=== PATIENT | male | born 1940 | race Caucasian/White ===

== ENCOUNTER 2020-11-10 12:34 | Observation (INO) | payer MEDICARE, SELFPAY ==
[2020-11-10] VITALS (9 sets, daily range): BP systolic 77–141; BP diastolic 43–61; PULSE 68–83; RESP 12–18; TEMP 36.2–36.8; O2SAT 94–100; BMI 22.6; BMI 22.7
--- NOTE | 2020-11-10 12:54 | CT_ITS ---
STUDY: CT BRAIN WITHOUT CONTRAST REASON FOR EXAM: Male, 80 years old. Fall RADIATION DOSAGE (If Supplied By Facility): CTDIvol = ( 38.43 ) mGy, DLP = ( 784.74 ) mGycm TECHNIQUE: Transaxial CT imaging of the brain was performed without administration of intravenous contrast material. Individualized dose optimization techniques were used for this CT. COMPARISON: No relevant priors. FINDINGS: Normal soft tissue structures. Normal calvarium. There is mild cerebral atrophy with widening of the extra-axial spaces and ventricular dilatation. Normal white matter tracts of the cerebral hemispheres. Normal basal ganglia and thalami. Normal brainstem. There is mild cerebellar atrophy. There is no intracranial hemorrhage. There are no findings of an acute ischemic infarction. Normal visualized paranasal sinuses. CT/Brain/Head without Contrast IMPRESSION: Chronic involutional changes of the brain. Electronically Signed: Albert Jackson MD at 14:35 EDT , Service support ,
--- NOTE | 2020-11-10 12:55 | EKG12_ITS ---
Test Reason : SYNCOPE Blood Pressure : / mmHG Vent. Rate : 073 BPM Atrial Rate : 073 BPM P-R Int : 148 ms QRS Dur : 096 ms QT Int : 446 ms P-R-T Axes : 033 056 052 degrees QTc Int : 491 ms Normal sinus rhythm Prolonged QT Abnormal ECG Confirmed by JEFF HORNER, BARBARA ([id number]), editor school photograph ALEXY VELÁSQUEZ ([id number]) on 11/13/2020 9:49:23 AM Referred By: BRE Confirmed By:TORI AGUILAR MD
--- NOTE | 2020-11-10 12:56 | CT_ITS ---
STUDY: CT CERVICAL SPINE WITHOUT CONTRAST REASON FOR EXAM: Male, 80 years old. Fall RADIATION DOSAGE (If Supplied By Facility): CTDIvol = ( 19.51 ) mGy, DLP = ( 438.63 ) mGycm TECHNIQUE: High resolution transaxial imaging was performed without contrast material. Sagittal and coronal images were reconstructed. Individualized dose optimization techniques were used for this CT. COMPARISON: None FINDINGS: Normal craniovertebral junction. There are degenerative changes of the anterior atlantoaxial articulation. Normal odontoid process. There is straightening of the normal cervical lordosis. Normal vertebral bodies and posterior osseous elements. C2-3: Normal endplates. Normal disc height and morphology. Normal central canal and intervertebral neuroforamina. C3-4: Mild degree of disc space narrowing. Spondylosis. Facet joint osteoarthritis and hypertrophy on the right side with moderate degree of right neural foraminal stenosis. Uncovertebral arthrosis worse on the right side. C4-5: Marked degree of disc space narrowing. Spondylolisthesis. Uncovertebral arthrosis worse on the right side with moderate right neural foraminal stenosis. C5-6: Marked degree of disc space narrowing. Spondylosis. Uncovertebral arthrosis. Marked degree of central canal stenosis and bilateral neural foraminal stenosis worse on the right side. C6-7: Marked degree of disc space narrowing. Spondylosis. Uncovertebral arthrosis with mild degree of bilateral neural foraminal stenosis. C7-T1: Normal endplates. Normal disc height and morphology. Normal central canal and intervertebral neuroforamina. Normal visualized soft tissue structures. CT/Spine Cervical without Contras IMPRESSION: Multilevel degenerative changes, as described above. Electronically Signed: Albert Jackson MD at 14:38 EDT , Service support ,
[2020-11-10 14:01] LABS: Absolute Lymphocyte Count 1.08 X10^3/uL (0.83-4.51); Absolute Neutrophil Count 1.3 X10^3/uL (2.0-7.7); Basophil# 0.03 X10^3/uL; Eosinophil# 0.21 X10^3/uL; Eosinophils% 7.2 % (0-5); Hematocrit 26.5 % (40-54); Hemoglobin 8.5 g/dL (13.0-16.5); Lymphocyte # 1.08 X10^3/ul (0.83-4.51); Lymphocyte % 37.2 % (19-41); Mean Corp Hgb Conc 32.1 g/dL (32-36); Mean Corpuscular Volume 99.6 fL (80-94); Mean Platelet Vol. 11.8 fl (6.2-12.0); Monocyte# 0.26 X10^3/uL; NRBC Flagged by Analyzer 0 % (0-5); Neutrophil # 1.31 X10^3/uL (2.7-7.7); Neutrophil % 45.3 % (47-70); POSITIVE COUNT YES; Platelet Count 71 K/mm3 (150-450); RBC Distribution Width CV 17.4 % (11.6-14.6); Red Blood Count 2.66 M/mm3 (4.6-6.2); White Blood Count 2.9 K/mm3 (4.4-11.0)
[2020-11-10 14:03] LABS: Differential Indicated SCAN CRITERIA MET
[2020-11-10 14:25] LABS: ALB/GLOB Ratio 0.6 RATIO (0.9-2.4); AST(SGOT) 18 U/L (15-37); Alanine Aminotransfer ALT/SGPT 21 U/L (16-61); Albumin, Serum 2.6 g/dL (3.2-5.0); Alkaline Phosphatase 57 U/L (45-117); Anion Gap 4 (5-15); BUN 18 mg/dL (7-18); BUN/Creat Ratio 11.8 RATIO (10-20); Calcium,Total 7.5 mg/dL (8.5-10.1); Chloride 106 mmol/L (98-107); Creatinine, Serum 1.52 mg/dL (0.70-1.30); EST Glomerular Filtration Rate 47 mL/min (>60); Est Glom Filt Rate - Afr Amer 57 mL/min (>60); Estimated Creatinine Clearance 38.94 ml/min; Globulin 4.2 g/dL (2.2-4.2); Glucose 104 mg/dL (74-106); Potassium 3.9 mmol/L (3.5-5.1); Protein, Total 6.8 g/dL (6.4-8.2); Sodium Level 139 mmol/L (136-145)
[2020-11-10 14:26] LABS: Anisocytosis 2+; Hypochromasia 2+
[2020-11-10 14:27] LABS: Platelet Estimate MOD DEC (ADEQ)
--- NOTE | 2020-11-10 15:37 | ED.DCSUM_ITS ---
- ER Visit Summary Date of Service: 11/10/20 Chief Complaint: Syncope History of Present Illness: The patient is a [address] Guallpa. He reports that he was sitting eating breakfast at 9:00 this morning when he became lightheaded. States this lasted for approximately 1 minute. He was nauseated and diaphoretic during this. He then had a syncopal episode. reports that he was out for 1 to 2 minutes and had movement of his arms and his legs. He states that he was making funny noises. Patient did not bite his tongue. Did not wet his pants. Was not postictal. Patient denies any preceding chest pain, palpitations, shortness of breath, abdominal pain. Physical Examination: Vitals: Stable. Afebrile. General: Well-nourished and well-developed. Head: Normocephalic atraumatic. Neck: Supple, no lymphadenopathy. No JVD. Nontender. Cardiovascular: Regular rate and rhythm. 2 out of 6 systolic murmur. Respiratory: No respiratory distress. Clear to auscultation bilaterally. Abdominal: Soft, nontender, nondistended, normal bowel sounds. No guarding, rebound, or peritoneal signs. Back: Nontender. Extremities: Nontender, no edema. Skin: Normal color, no rash. Neurologic: Alert and oriented ?3. Cranial nerves II through XII are intact. Normal strength and sensation. Psych: Normal affect. Test Results: EKG is sinus at [address] changes. QTC is 491. There is no old EKG for comparison. Troponin is negative. LFTs show an albumin of 2.6. Chem-7 shows a creatinine 1.52 and calcium of 7.5. CBC shows a white count of 2.9 with an H&H of 8.5 and 26.5, platelets of 71, segmented neutrophils 45, eosinophils of 7. Clinical Impression(s) from Imaging Studies Brain CT 11/10/20 12:54 IMPRESSION: Chronic involutional changes of the brain. Electronically Signed: Albert Jackson MD at 14:35 EDT , Service support , Cervical Spine CT 11/10/20 12:56 IMPRESSION: Multilevel degenerative changes, as described above. Electronically Signed: Albert Jackson MD at 14:38 EDT , Service support , Emergency Department Course and Treatment: Patient had negative orthostatic vital signs. He was given a 500 cc bolus of normal saline. He is resting comfortably. Treatment Plan: I am concerned that the patient's syncopal episode may have been due to a dysrhythmia. He will be discussed with the hospitalist admitted for further evaluation and treatment. Disposition: Admitted in stable condition. Impression: 1. Syncope. 2. Pancytopenia. 3. Renal sufficiency. 4. History of multiple myeloma. This note was generated with [facility] dictation software. It may contain incorrect words, spelling, and punctuation that were not noted in review of the chart prior to signing ED Disposition - Plan for ED Patient: Referrals: SERAFIN GUALLPA [Other]
--- NOTE | 2020-11-10 16:04 | HP.PCM_ITS ---
<Aysha Matta DIRECT SUPPORT STAFF MEMBER - Last Filed: 11/10/20 16:19> Problem List (1) Multiple myeloma Status: Chronic (2) Syncope Status: Acute History of Present Illness Date of Admission: 11/10/20 Chief Complaint: Syncope. The patient is a 80 year old M who presents to the emergency room due to episode of syncope. Patient reports he was eating breakfast this morning when he became lightheaded and felt as if he was going to pass out. His states he then slumped over and passed out for 1 to 2 minutes. She states during that time he had upper and lower extremity jerking movements and was making unusual noises. He was not incontinent of urine or stool. Denies biting his tongue. No history of seizure. When patient became alert, he states he felt normal. He has not had further episodes. Prior to syncope, he denied palpitations, shortness of breath. states during episode of syncope he appeared to be very diaphoretic. He denies cardiac history. He has a past medical history of multiple myeloma, chronic back pain, hypothyroidism. Patient states he recently received Zometa IV dose and read that adverse effect can cause seizure. Past Medical History Past Medical History (Chronic Problems): Chronic Problems Multiple myeloma (Chronic) Allergies azithromycin Allergy (Verified 11/10/20 12:37) Rash Surgical History: - - Lumbar back surgery X2, most recent june 2020 Psychiatric History: No pertinent psych hx Lives: Spouse/ Significant Other Smoking Status: Never smoker Alcohol: None Drugs: None - *Family History Maternal History Items: Dementia Paternal History Items: - - TIA Review of Systems Constitutional: Denies: Chills, Fever, Weight Change HEENT: Denies: Head Aches, Sinus Congestion, Sinus Drainage Cardiovascular: Reports: Light Headedness, Syncope. Denies: Chest Pain, Edema Respiratory: Denies: Cough, Shortness of breath at rest, Sputum production Gastrointestinal: Denies: Abdominal Pain, Nausea, Vomiting Genitourinary: Denies: Dysuria Musculoskeletal: Denies: Joint Pain, Joint Tenderness Skin: Denies: Rash, Wounds Neurological: Denies: Numbness, Tingling, Focal weakness Psychiatric: Denies: Anxiety, Depression, Homicidal Ideations, Suicidal Ideations Hematologic/ Lymphatic: Denies: Easy Bruising, Easy Bleeding VTE Information - Inpt Only VTE Present on Admission: No VTE Mechan Device Prophylaxis: None VTE Pharm Prophylaxis ordered?: No Reason prophylaxis not ordered:: Treatment Not Indicated - On anticoagulation with Xarelto - Physical Exam Vitals/I&O's: Vital Signs Temp Pulse Resp BP Pulse Ox 97.2 F L 69 18 123/49 H 99 11/10/20 16:02 11/10/20 16:02 11/10/20 16:02 11/10/20 16:02 11/10/20 16:02 Oxygen Delivery Method Room Air Weight: 162 lb Body Mass Index (BMI) 22.6 General: Alert, Oriented x3, Cooperative HEENT: Atraumatic, PERRLA, EOMI, Normocephalic Neck: Supple, No JVD, Negative Carotid Bruits Lungs: Clear to auscultation, Normal air movement Cardiovascular: Regular rate, No murmurs Abdomen: Bowel Sounds Present, Soft, Non Tender, Non-Distended Extremities: No clubbing, No cyanosis, No edema, Capillary Refill Less than 3 Seconds Skin: No rashes, No breakdown Musculoskeletal: No Tenderness to Palpation of Joints or Extremities Neurological: Cranial nerves II-XII grossly intact, Neuro grossly intact Psych/Mental Status: Normal Affect, Appropriate Laboratory Results 11/10/20 13:50: WBC 2.9 L, RBC 2.66 L, Hgb 8.5 L, Hct 26.5 L, MCV 99.6 H, MCH 32.0, MCHC 32.1, RDW Std Deviation 63.0 H, RDW Coeff of Jinny 17.4 H, Plt Count 71 L, MPV 11.8, Immature Gran % (Auto) 0.300, Neut % (Auto) 45.3 L, Lymph % (Auto) 37.2, [place] % (Auto) 9.0, Eos % (Auto) 7.2 H, Baso % (Auto) 1.0, Absolute Neuts (auto) 1.3 L, Absolute Lymphs (auto) 1.08, Nucleated RBC % 0, Platelet Estimate MOD DEC, Hypochromasia 2+, Anisocytosis 2+ 11/10/20 13:50: Sodium 139, Potassium 3.9, Chloride 106, Carbon Dioxide 29.0, Anion Gap 4 L, BUN 18, Creatinine 1.52 H, Estim Creat Clear Calc 38.94, Est GFR (MDRD) Af Amer 57 L, Est GFR (MDRD) Non-Af 47 L, BUN/Creatinine Ratio 11.8, Glucose 104, Calcium 7.5 L, Total Bilirubin 0.60, AST 18, ALT 21, Alkaline Phosphatase 57, Troponin I < 0.015, Total Protein 6.8, Albumin 2.6 L, Globulin 4.2, Albumin/Globulin Ratio 0.6 L Assessment/Plan All Active Problems Syncope (Acute) 1. Syncope-unclear etiology. Trend enzymes. Brain CT with chronic changes. Cervical spine CT unremarkable. Obtain echo, EEG. Orthostatic vitals. PT/OT. Monitor telemetry. 2. TONJA vs CKD- unknown baseline renal function. IV fluids, trend BMP. 3. Multiple myeloma, chronic pancytopenia-on Revlimid, Zometa. Follows with Dr. Cook, [facility]. 4. Hypothyroidism-continue Synthroid regimen. Check TSH. 5. Chronic back pain-history of lumbar fusion June 2020. On baclofen, as needed pain regimen. DVT prophylaxis-Xarelto CODE STATUS: Discussed in length with patient including differences between full code, DNR CCA and DNR CC. Patient elects to remain full code. This patient was seen by JEZ Velazquez under the supervision of Dr. Melgoza. <Kirstin Melgoza - Last Filed: 11/10/20 18:29> History of Present Illness The patient is a 80 year old M [] Past Medical History Allergies azithromycin Allergy (Verified 11/10/20 12:37) Rash - Physical Exam Vitals/I&O's: Vital Signs Temp Pulse Resp BP Pulse Ox 98.2 F 71 12 127/61 H 100 11/10/20 16:48 11/10/20 16:48 11/10/20 16:48 11/10/20 16:48 11/10/20 16:48 Oxygen Delivery Method Room Air Weight: 162 lb 7.691 oz Body Mass Index (BMI) 22.6 Intake and Output for Last 24 Hours 11/08/20 11/09/20 11/10/20 23:59 23:59 23:59 Output Total 225 / 225 Balance -225 / -225 Laboratory Results 11/10/20 13:50: WBC 2.9 L, RBC 2.66 L, Hgb 8.5 L, Hct 26.5 L, MCV 99.6 H, MCH 32.0, MCHC 32.1, RDW Std Deviation 63.0 H, RDW Coeff of Jinny 17.4 H, Plt Count 71 L, MPV 11.8, Immature Gran % (Auto) 0.300, Neut % (Auto) 45.3 L, Lymph % (Auto) 37.2, [place] % (Auto) 9.0, Eos % (Auto) 7.2 H, Baso % (Auto) 1.0, Absolute Neuts (auto) 1.3 L, Absolute Lymphs (auto) 1.08, Nucleated RBC % 0, Platelet Estimate MOD DEC, Hypochromasia 2+, Anisocytosis 2+ 11/10/20 13:50: Sodium 139, Potassium 3.9, Chloride 106, Carbon Dioxide 29.0, Anion Gap 4 L, BUN 18, Creatinine 1.52 H, Estim Creat Clear Calc 38.94, Est GFR (MDRD) Af Amer 57 L, Est GFR (MDRD) Non-Af 47 L, BUN/Creatinine Ratio 11.8, Glucose 104, Calcium 7.5 L, Total Bilirubin 0.60, AST 18, ALT 21, Alkaline Phosphatase 57, Troponin I < 0.015, Total Protein 6.8, Albumin 2.6 L, Globulin 4.2, Albumin/Globulin Ratio 0.6 L 11/10/20 13:50: Magnesium 1.6 Current Medications Acetaminophen (Acetaminophen 325 Mg Tablet) 650 mg PO Q6H PRN PRN PRN Reason: Pain Score 1-10/Temp > 100.7 F Baclofen (Baclofen 10 Mg Tablet) 10 mg PO TID PRN PRN PRN Reason: back pain Sodium Chloride () 1,000 mls @ 100 mls/hr IV .Q10H [facility] Sodium Chloride () 250 mls @ 15 mls/hr IV .[id number] PRN PRN Reason: Saline Flush Sodium Chloride () 250 mls @ 15 mls/hr IV .[id number] PRN PRN Reason: Additional IVPB Infusion Levothyroxine Sodium (Levothyroxine 25 Mcg Tablet) 25 mcg PO DAILY@0600 [facility] Loratadine (Loratadine 10 Mg Tablet) 10 mg PO DAILY [facility] Mirtazapine (Mirtazapine 15 Mg Tablet) 15 mg PO QHS [facility] Non-Formulary Medication (Lenalidomide [Revlimid]) 15 mg PO DAILY [facility] Nutritional Formula (Lactose Free) (Ensure Enlive 120 Ml Liquid) 120 ml PO 4X/DAY [facility] Ondansetron HCl (Ondansetron 4 Mg/2 Ml Vial) 4 mg IV Q8H PRN PRN PRN Reason: NAUSEA/VOMITING Oxycodone HCl (Oxycodone 5 Mg Tablet) 5 mg PO Q4H PRN PRN PRN Reason: Pain Score 4-10 Rivaroxaban (Rivaroxaban 20 Mg Tablet) 20 mg PO DAILY [facility] Sodium Chloride (0.9% Saline Lock 10 Ml Syringe) 10 - 40 ml IV UD PRN PRN Reason: SALINE FLUSH Assessment/Plan Patient seen by Aysha Matta NP-Nini under my supervision Patient is an 80-year-old male with a past medical history as outlined which includes multiple myeloma and chronic thrombocytopenia as well as hypothyroidism. He was admitted through the ED on 11/11/2019 with complaint of syncope. Patient states he passed out at the breakfast table. He felt dizzy for short while prior to him passing out and he was passed out for about 1 to 2 minutes. This was witnessed by his who said patient had jerking seizure- like activity during the syncopal event. He denied any post syncope drowsiness or tongue biting or urinary or fecal incontinence. This the first time he had such syncope. He denied any nausea vomiting or diarrhea. Review of symptoms otherwise negative. The ED vitals were essentially stable and CT of the brain was negative for any acute intracranial pathology. Cervical spine CT was also unremarkable. He has been admitted to be managed for syncope. O/E: Vital Signs Temp Pulse Resp BP Pulse Ox 98.2 F 71 12 127/61 H 100 11/10/20 16:48 11/10/20 16:48 11/10/20 16:48 11/10/20 16:48 11/10/20 16:48 General: Alert, Oriented x3, Cooperative HEENT: Atraumatic, PERRLA, EOMI, Normocephalic Neck: Supple, No JVD, Negative Carotid Bruits Lungs: Clear to auscultation, Normal air movement Cardiovascular: Regular rate, No murmurs Abdomen: Bowel Sounds Present, Soft, Non Tender, Non-Distended Extremities: No clubbing, No cyanosis, No edema, Capillary Refill Less than 3 Seconds Skin: No rashes, No breakdown Musculoskeletal: No Tenderness to Palpation of Joints or Extremities Neurological: Cranial nerves II-XII grossly intact, Neuro grossly intact Psych/Mental Status: Normal Affect, Appropriate Plan is to admit to progressive care unit. Check orthostatics. Get 2D echo. Also check EEG due to concerns for probable seizure though I do think this was likely cardiogenic syncope. Will consult neurology's EEG results line. PT OT consult. Of note, patient is also on cytopenic and this appears to be chronic due to his myeloma. says his platelets, WBC will be relatively low patient other about the exact levels. She will bring in his lab records from [facility] where he usually follows up tomorrow. None is elevated at 1.52. Again we do not have a baseline at this time. We will assume this is CKD and hydrate patient gently. Fall precautions. Rest as per JEZ Velazquez's notes which I have reviewed and endorsed. Code Status: Full code * Patient and counseled extensively about different types of CODE STATUS including full code, DNR CCA and DNR CCA. Patient elects to be full code. * Total [id number] time 17 minutes. OBSV E&M: 80922 Initial observation care L2
--- NOTE | 2020-11-10 17:03 | ECHOD_ITS ---
Version 2 Reason For Study: Syncope Procedure This was a 2D Doppler, Color Flow transthoracic echocardiogram. Technically difficult study. Patient scanned supine and sitting up due to severe neck pain. Bubble study performed. Exam performed portable in patient room. Left Ventricle Normal LV size. The estimated ejection fraction is 65 %. No evidence for diastolic dysfunction. No regional wall motion abnormalities noted. Right Ventricle Normal RV size. Normal systolic function. Atria Normal left atrium. Normal right atrium. No doppler evidence for ASD. Bubble contrast study negative for right to left interatrial shunt. Mitral Valve There is no mitral valve stenosis. No mitral valve insufficiency. Tricuspid Valve There is no tricuspid stenosis. Unable to estimate RV systolic pressure due to insufficient tricuspid regurgitant envelope. Aortic Valve Trisinus/trileaflet aortic valve. There is no aortic stenosis. No aortic valve insufficiency. Pulmonic Valve There is no pulmonic valvular stenosis. No pulmonic valve insufficiency. Great Vessels Normal aortic root. Pericardium/Pleural No pericardial effusion. Medication Performed a rapid injection of agitated mix of 9 cc saline and 1cc air to assess for atrial septal defect. MMode/2D Measurements & Calculations LVIDd: 3.8 cm IVSd: 1.1 cm Ao root diam: 3.8 cm LVIDs: 2.8 cm LVPWd: 0.92 cm LA dimension: 3.1 cm FS: 25.7 % LAV(MOD-bp): 43.1 ml LA A4 area: 16.0 cm2 RA A4 area: 13.7 cm2 LAV(MOD-bp) Indexed: 22.4 ml/m2 LAV(MOD-sp2): 32.6 ml LAV(MOD-sp4): 39.3 ml Time Measurements MV dec time: 0.25 sec Doppler Measurements & Calculations MV E max zechariah: 72.5 cm/sec Lat Peak E' Zechariah: 9.2 cm/sec Med Peak E' Zechariah: 8.7 cm/sec MV A max zechariah: 99.5 cm/sec E/E' lat: 7.9 E/E' med: 8.3 MV E/A: 0.73 MV V2 max: 113.6 cm/sec MV P1/2t max zechariah: 89.6 cm/sec Ao V2 max: 104.9 cm/sec MV max P.2 mmHg MV P1/2t: 88.4 msec Ao max P.4 mmHg MV V2 mean: 61.2 cm/sec MV dec slope: 296.7 cm/sec2 MV mean P.8 mmHg MV V2 VTI: 30.6 cm MVA(P1/2t): 2.5 cm2 LV V1 max: 98.3 cm/sec PA V2 max: 91.4 cm/sec LV V1 max P.9 mmHg ECHO/Echo Complete Interpretation Summary No evidence for diastolic dysfunction. The estimated ejection fraction is 65 %. Ordering Physician: Aysha Matta Referring Physician: No PCP noted Performed By: Papo Dawkins RCS
[2020-11-10 17:24] LABS: Magnesium 1.6 mg/dL (1.6-2.6)
[2020-11-10] MEDS: 0.9% Normal Saline 1,000 ML 100 ML IV (18:37)
[2020-11-10] MEDS: 0.9% Saline Lock 10 ML Syringe IV (18:38)
--- NOTE | 2020-11-10 19:04 | NURSING ---
Documentation by Jennie Gilliland RN reviewed by this RN.
[2020-11-10] MEDS: Mirtazapine 15 MG Tablet PO (22:01)
[2020-11-10] MEDS: oxyCODONE 5 MG Tablet PO (22:20)
--- NOTE | 2020-11-10 23:17 | PCA ---
Pt had XLG BM
[2020-11-11] VITALS (7 sets, daily range): BP systolic 111–123; BP diastolic 46–58; PULSE 70–83; RESP 14–18; TEMP 36.9–37.5; O2SAT 95–100
[2020-11-11] MEDS: 0.9% Normal Saline 1,000 ML 100 ML IV (04:15)
[2020-11-11] MEDS: Levothyroxine 25 MCG TABLET PO (06:09)
[2020-11-11 07:30] LABS: Absolute Lymphocyte Count 0.93 X10^3/uL (0.83-4.51); Absolute Neutrophil Count 0.9 X10^3/uL (2.0-7.7); Basophil# 0.02 X10^3/uL; Basophil% 0.9 % (0-1); Eosinophil# 0.29 X10^3/uL; Eosinophils% 12.6 % (0-5); Hematocrit 24.9 % (40-54); Lymphocyte # 0.93 X10^3/ul (0.83-4.51); Lymphocyte % 40.3 % (19-41); Mean Corp Hgb Conc 32.1 g/dL (32-36); Mean Corpuscular Hgb 32.3 pg (27.0-32.0); Mean Corpuscular Volume 100.4 fL (80-94); Mean Platelet Vol. 11.9 fl (6.2-12.0); Monocyte# 0.22 X10^3/uL; Monocyte% 9.5 % (0-10); NRBC Flagged by Analyzer 0 % (0-5); Neutrophil # 0.85 X10^3/uL (2.7-7.7); Neutrophil % 36.7 % (47-70); POSITIVE COUNT YES; POSITIVE DIFFERENTIAL YES; Platelet Count 61 K/mm3 (150-450); RBC Distribution Width CV 17.3 % (11.6-14.6); RBC Distribution Width SD 63.7 fl (35.1-43.9); Red Blood Count 2.48 M/mm3 (4.6-6.2); White Blood Count 2.3 K/mm3 (4.4-11.0)
[2020-11-11 07:37] LABS: Differential Indicated SCAN CRITERIA MET
[2020-11-11 08:01] LABS: Anion Gap 6 (5-15); BUN 16 mg/dL (7-18); BUN/Creat Ratio 11.9 RATIO (10-20); Calcium,Total 6.7 mg/dL (8.5-10.1); Chloride 112 mmol/L (98-107); Creatinine, Serum 1.35 mg/dL (0.70-1.30); EST Glomerular Filtration Rate 54 mL/min (>60); Est Glom Filt Rate - Afr Amer 65 mL/min (>60); Estimated Creatinine Clearance 43.98 ml/min; Glucose 93 mg/dL (74-106); Potassium 3.4 mmol/L (3.5-5.1); Sodium Level 143 mmol/L (136-145); Thyroid Stim Hormone (TSH) 1.29 uIU/mL (0.358-3.74)
[2020-11-11 08:14] LABS: Anisocytosis RARE; Hypochromasia 2+; Ovalocyte 1+; Schistocytes RARE
[2020-11-11] MEDS: Rivaroxaban 20 MG Tablet PO (10:03)
[2020-11-11] MEDS: Loratadine 10 MG Tablet PO (10:03)
[2020-11-11] MEDS: oxyCODONE 5 MG Tablet PO (10:13)
--- NOTE | 2020-11-11 12:04 | TELEMED_ITS ---
[facility] has confirmed receipt of a request for visit. This document confirms receipt of the order initiating the consult. To find the results of the consultation, please view the patient's reports for the scanned Telemed Consult.
--- NOTE | 2020-11-11 12:54 | DCINST_ITS ---
- Discharge Diagnoses Current Active Problems: Current Active and Chronic Problems Multiple myeloma (Chronic) Syncope (Acute) You will use the following diet at home:: No restrictions Discharge Activity: Return to Normal Activity Call your doctor if you observe: Shortness of breath, Dizziness, Fainting spells, Chest pain Allergies/Adverse Reactions: Allergies azithromycin Allergy (Verified 11/10/20 12:37) Rash Medications to take at Discharge Baclofen [Lioresal] 10 mg PO TID PRN PRN 11/10/20 Calcium Carbonate [Calcium] 600 mg PO DAILY 11/10/20 Cholestyramine (with Sugar) [Cholestyramine Packet] 4 gm PO DAILY 11/10/20 Hydrocodone/Acetaminophen [Hydrocodone-Acetamin 5-325 mg] 1 tablet PO Q6H PRN 11/10/20 Lactobacillus Acidophilus [Probiotic] 1 cap PO QHS 11/10/20 Lenalidomide [Revlimid] 15 mg PO DAILY 11/10/20 Levothyroxine Sodium [Synthroid] 25 mcg PO DAILY 11/10/20 Loratadine 10 mg PO DAILY 11/10/20 Mirtazapine [Remeron] 15 mg PO QHS 11/10/20 Rivaroxaban [Xarelto] 20 mg PO DAILY 11/10/20 Zometa IV .[id number] 11/10/20 Primary Care Physician: SERAFIN SÁNCHEZ [Other] Please follow up with your Primary Care Physician in: 1 Week Test Results: Test results from this visit will be discussed in further detail at your follow- up appointment, if applicable. Please Follow Up With: Dr. Cook When: As scheduled Proposed Discharge Date: 11/11/20
--- NOTE | 2020-11-11 14:13 | PCM.DC.SUM ---
<Aysha Matta BALL WORKER - Last Filed: 11/11/20 14:26> Discharge Date and Diagnosis - Problem List Patient Problems: Active and Suspected Problems Syncope (Acute) Date of Admission: 11/10/20 Date of Discharge: 11/11/20 - Primary Discharge Diagnosis Acute Problems: Active Problems 1. Syncope 2. Chronic kidney disease stage IIIa 3. Multiple myeloma, chronic pancytopenia 4. Hypothyroidism 5. Chronic back pain - Secondary Discharge Diagnosis Chronic Problems: Chronic Problems Multiple myeloma (Chronic) Hospital Course and Treatment Imaging Results: Diagnostic Data Brain CT 11/10/20 12:54 IMPRESSION: Chronic involutional changes of the brain. Electronically Signed: Albert Jackson MD at 14:35 EDT , Service support , Cervical Spine CT 11/10/20 12:56 IMPRESSION: Multilevel degenerative changes, as described above. Electronically Signed: Albert Jackson MD at 14:38 EDT , Service support , Echocardiogram 11/10/20 17:03 Interpretation Summary No evidence for diastolic dysfunction. The estimated ejection fraction is 65 %. Ordering Physician: Aysha Matta Referring Physician: No PCP noted Performed By: Papo Dawkins [facility] neurology Operations: None Procedures: 2-D Echocardiogram, Electroencephalogram Summary of Care Provided: The patient is a 80 year old M admitted 11/10/2020 due to syncope. 1. Syncope-suspect secondary to orthostasis. Brain CT with chronic changes. Cervical spine CT unremarkable. Orthostatic vital significantly positive on admission, resolved after IV fluids. Troponin negative. Echocardiogram with EF 65%. Neurology consulted due to patient's 's concern for seizure however report of events not consistent with seizure activity. Neurology agrees that episode is not seizure related. No further symptoms during admission. No events on telemetry. Follow-up with PCP in 1 week. 2. Chronic kidney disease stage IIIa-suspected based on labs, no prior labs for comparison. No acute kidney injury. 3. Multiple myeloma, chronic pancytopenia-on Revlimid, Zometa. Follows with Dr. Cook, [facility]. 4. Hypothyroidism-continue Synthroid regimen. TSH normal. 5. Chronic back pain-history of lumbar fusion June 2020. On baclofen, as needed pain regimen. General: Alert, Oriented x3, Cooperative HEENT: Atraumatic, PERRLA, EOMI, Normocephalic Neck: Supple, No JVD, Negative Carotid Bruits Lungs: Clear to auscultation, Normal air movement Cardiovascular: Regular rate, No murmurs Abdomen: Bowel Sounds Present, Soft, Non Tender, Non-Distended Extremities: No clubbing, No cyanosis, No edema, Capillary Refill Less than 3 Seconds Skin: No rashes, No breakdown Musculoskeletal: No Tenderness to Palpation of Joints or Extremities Neurological: Cranial nerves II-XII grossly intact, Neuro grossly intact Psych/Mental Status: Normal Affect, Appropriate Patient seen and examined prior to discharge. Physical assessment as noted above. Patient is stable for discharge with follow up recommendations as noted above. This patient was seen by JEZ Velazquez under the supervision of Dr. Morales. Patient Problems: Active and Suspected Problems Syncope (Acute) - Physical Exam Vitals/I&O's: Vital Signs Temp Pulse Resp BP Pulse Ox 98.6 F 73 14 116/58 L 99 11/11/20 09:58 11/11/20 09:58 11/11/20 09:58 11/11/20 09:58 11/11/20 09:58 Oxygen Delivery Method Room Air Weight: 162 lb 7.691 oz Body Mass Index (BMI) 22.6 Orthostatic Vital Signs Start: 11/10/20 18:27 Freq: q24h Status: Active Protocol: Activity Type Activity Date Activity User E-Sign Co-Sign Detail Recorded Client Recorded Date Recorded By Document 11/11/20 06:11 AF [id number] 11/11/20 06:21 AF 11/11/20 06:11 Orthostatic Vitals Standing -Blood Pressure (90/60-120/80) 122/55 H -Extremity Use Left Arm -Pulse Rate (60-100) 78 Sitting -Blood Pressure (90/60-120/80) 112/46 L -Extremity Use Left Arm -Pulse Rate (60-100) 83 Lying -Blood Pressure (90/60-120/80) 111/50 L -Extremity Use Left Arm -Pulse Rate (60-100) 75 Intake and Output for Last 24 Hours 11/09/20 11/10/20 11/11/20 23:59 23:59 23:59 Intake Total 500 / 740 1823.33 / 1823.33 Output Total 225 / 425 900 / 900 Balance 275 / 315 923.33 / 923.33 Laboratory Results 11/10/20 13:50: Platelet Estimate MOD DEC, Hypochromasia 2+, Anisocytosis 2+ 11/10/20 13:50: Sodium 139, Potassium 3.9, Chloride 106, Carbon Dioxide 29.0, Anion Gap 4 L, BUN 18, Creatinine 1.52 H, Estim Creat Clear Calc 38.94, Est GFR (MDRD) Af Amer 57 L, Est GFR (MDRD) Non-Af 47 L, BUN/Creatinine Ratio 11.8, Glucose 104, Calcium 7.5 L, Total Bilirubin 0.60, AST 18, ALT 21, Alkaline Phosphatase 57, Troponin I < 0.015, Total Protein 6.8, Albumin 2.6 L, Globulin 4.2, Albumin/Globulin Ratio 0.6 L 11/10/20 13:50: Magnesium 1.6 11/10/20 18:17: Troponin I < 0.015 11/10/20 20:43: Troponin I 0.016 11/11/20 07:16: WBC 2.3 L, RBC 2.48 L, Hgb 8.0 L, Hct 24.9 L, MCV 100.4 H, MCH 32.3 H, MCHC 32.1, RDW Std Deviation 63.7 H, RDW Coeff of Jinny 17.3 H, Plt Count 61 L, MPV 11.9, Immature Gran % (Auto) 0.000, Neut % (Auto) 36.7 L, Lymph % (Auto) 40.3, [place] % (Auto) 9.5, Eos % (Auto) 12.6 H, Baso % (Auto) 0.9, Absolute Neuts (auto) 0.9 L, Absolute Lymphs (auto) 0.93, Nucleated RBC % 0, Hypochromasia 2+, Anisocytosis RARE, Ovalocytes 1+, Schistocytes RARE 11/11/20 07:16: Sodium 143, Potassium 3.4 L, Chloride 112 H, Carbon Dioxide 25.0, Anion Gap 6, BUN 16, Creatinine 1.35 H, Estim Creat Clear Calc 43.98, Est GFR (MDRD) Af Amer 65, Est GFR (MDRD) Non-Af 54 L, BUN/Creatinine Ratio 11.9, Glucose 93, Calcium 6.7 L, TSH 1.29 Current Medications Acetaminophen (Acetaminophen 325 Mg Tablet) 650 mg PO Q6H PRN PRN PRN Reason: Pain Score 1-10/Temp > 100.7 F Baclofen (Baclofen 10 Mg Tablet) 10 mg PO TID PRN PRN PRN Reason: back pain Sodium Chloride () 1,000 mls @ 100 mls/hr IV .Q10H [facility] [place] Last Admin: 11/11/20 04:15 Dose: 100 mls/hr Documented by: Sodium Chloride () 250 mls @ 15 mls/hr IV .[id number] PRN PRN Reason: Saline Flush Sodium Chloride () 250 mls @ 15 mls/hr IV .[id number] PRN PRN Reason: Additional IVPB Infusion Levothyroxine Sodium (Levothyroxine 25 Mcg Tablet) 25 mcg PO DAILY@0600 [facility] [place] Last Admin: 11/11/20 06:09 Dose: 25 mcg Documented by: Loratadine (Loratadine 10 Mg Tablet) 10 mg PO DAILY [facility] [place] Last Admin: 11/11/20 10:03 Dose: 10 mg Documented by: Mirtazapine (Mirtazapine 15 Mg Tablet) 15 mg PO QHS [facility] [place] Last Admin: 11/10/20 22:01 Dose: 15 mg Documented by: Non-Formulary Medication (Lenalidomide [Revlimid]) 15 mg PO DAILY [facility] [place] Nutritional Formula (Lactose Free) (Ensure Enlive 120 Ml Liquid) 120 ml PO 4X/DAY [facility] [place] Last Admin: 11/11/20 10:03 Dose: 120 ml Documented by: Ondansetron HCl (Ondansetron 4 Mg/2 Ml Vial) 4 mg IV Q8H PRN PRN PRN Reason: NAUSEA/VOMITING Oxycodone HCl (Oxycodone 5 Mg Tablet) 5 mg PO Q4H PRN PRN PRN Reason: Pain Score 4-10 Last Admin: 11/11/20 10:13 Dose: 5 mg Documented by: Rivaroxaban (Rivaroxaban 20 Mg Tablet) 20 mg PO DAILY [facility] [place] Last Admin: 11/11/20 10:03 Dose: 20 mg Documented by: Sodium Chloride (0.9% Saline Lock 10 Ml Syringe) 10 - 40 ml IV UD PRN PRN Reason: SALINE FLUSH Last Admin: 11/10/20 18:38 Dose: 5 ml Documented by: Discharge Diet: No Restrictions Discharge Activity: Return to Normal Activity Call your doctor if you observe: Shortness of breath, Dizziness, Fainting spells, Chest pain Home Medications: Medications to take at Discharge Baclofen [Lioresal] 10 mg PO TID PRN PRN 11/10/20 Calcium Carbonate [Calcium] 600 mg PO DAILY 11/10/20 Cholestyramine (with Sugar) [Cholestyramine Packet] 4 gm PO DAILY 11/10/20 Hydrocodone/Acetaminophen [Hydrocodone-Acetamin 5-325 mg] 1 tablet PO Q6H PRN 11/10/20 Lactobacillus Acidophilus [Probiotic] 1 cap PO QHS 11/10/20 Lenalidomide [Revlimid] 15 mg PO DAILY 11/10/20 Levothyroxine Sodium [Synthroid] 25 mcg PO DAILY 11/10/20 Loratadine 10 mg PO DAILY 11/10/20 Mirtazapine [Remeron] 15 mg PO QHS 11/10/20 Rivaroxaban [Xarelto] 20 mg PO DAILY 11/10/20 Zometa IV .[id number] 11/10/20 Primary Care Physician: SERAFIN SÁNCHEZ [Other] Please follow up with your Primary Care Physician in: 1 Week Please Follow Up With: Dr. Cook When: As scheduled Disposition: Home Minutes spent on discharge:: 35 Patient Condition:: Stable Medical Necessity - Tobacco Use Smoking Status: Never smoker Tobacco Use: Non-smoker Meaningful Use Info Meaningful Use Diagnoses (Choose all that apply): None applicable <Andrew,Davin - Last Filed: 11/12/20 13:21> Discharge Date and Diagnosis - Primary Discharge Diagnosis Acute Problems: Active Problems Syncope (Acute) - Secondary Discharge Diagnosis Chronic Problems: Chronic Problems Multiple myeloma (Chronic) Hospital Course and Treatment Summary of Care Provided: This patient was seen in conjunction with Aysha PEREZ. I have independently interviewed and examined the patient and reviewed pertinent history, examination findings, laboratory and plan of management. I have reviewed the note and agree with the documented findings with the few additional points. In brief, patient is 80-year-old gentleman admitted for syncope after he ate breakfast. Syncope most likely due to orthostatic hypotension. Lead EKG normal sinus rhythm at [address]-T changes. QTc [address] As reported above [address] brain and CT C-spine no acute change. Symptoms resolved with IV fluid. Echo EF 65%. [facility] neurologist was consulted patient was same syncopal episode due to orthostasis. Patient also has chronic anemia/pancytopenia due to multiple myeloma and is on Revlimid and Zometa. Neurologist does not believe that he had seizure episodes. CKD stage IIIa. Creatinine slight improvement on IV fluid rehydration. Other comorbidities as mentioned above I have discussed my assessment with BALL WORKERAysha and orders have been reviewed. [] Objective: Seen and examined. Patient had orthostatic hypotension without much change in heart rate on day of admission but later on improved after IV fluid rehydration. In the morning today no orthostatic drop and heart rate remained stable. Patient denies any chest pain or shortness of breath or arrhythmia. Denies any history of chronic heart disease lung disease or stroke or peripheral arterial disease. General: Alert, Oriented x3, Cooperative HEENT: Atraumatic, PERRLA, EOMI, Normocephalic Oral: No Gingival or Mucosal Lesions/ Ulcerations Neck: Supple, No JVD, Negative Carotid Bruits Lungs: Air entry diminished in bilateral lung bases. No crepitation/rhonchi Cardiovascular: Regular rate, Regular Rhythm, Normal S1, Normal S2, No murmurs Abdomen: Bowel Sounds Present, Soft, Non Tender, Non-Distended : No renal angle tenderness. No suprapubic tenderness. Extremities: No edema, Capillary Refill Less than 3 Seconds Skin: Black-brownish stuck on appearance, seborrhoic keratosis Musculoskeletal: No Tenderness to Palpation of Joints or Extremities Neurological: Cranial nerves II-XII grossly intact, Deep Tendon Reflexes 2+/4 and Symmetrical, Neuro grossly intact Psych/Mental Status: Normal Affect, Appropriate. - Physical Exam Vitals/I&O's: Vital Signs Temp Pulse Resp BP Pulse Ox 98.4 F 72 14 123/54 H 95 11/11/20 15:43 11/11/20 15:43 11/11/20 15:43 11/11/20 15:43 11/11/20 15:43 Oxygen Delivery Method Room Air Weight: 162 lb 7.691 oz Body Mass Index (BMI) 22.6 Intake and Output for Last 24 Hours 11/10/20 11/11/20 11/12/20 23:59 23:59 23:59 Intake Total 500 / 740 2823.33 / 2823.33 Output Total 225 / 425 900 / 900 Balance 275 / 315 1923.33 / 1923.33 OBSV E&M: 55614 Observation care discharge
[2020-11-11] MEDS: Potassium Chloride Oral Tablet 20 MEQ 40 MEQ PO (14:19)
== END 2020-11-11 14:26 | disposition home or self-care (01) ==
LOC: ED 14:32 → PCU 16:21
PROVIDERS: Nurse Practitioner Family; Admitting Provider Student in an Organized Health Care Education/Training Program; Emergency Provider Emergency Medicine; Visit Provider Internal Medicine
DX: I95.1 Orthostatic hypotension (principal); R42 Dizziness and giddiness; D61.818 Other pancytopenia; C90.00 Multiple myeloma not having achieved remission; G89.29 Other chronic pain; N18.31 Chronic kidney disease, stage 3a; E03.9 Hypothyroidism, unspecified; Z98.1 Arthrodesis status; Z79.899 Other long term (current) drug therapy; Z79.01 Long term (current) use of anticoagulants
CPT/HCPCS: 36415; 70450; 72125; 80048; 80053; 83735; 84443; 84484; 85025; 93005; 93306; 95819; 96360; 96361; 97163; 97166; 99218; 99285; J7030; J7040; A4216; G0378

== ENCOUNTER 2022-04-09 13:41 | Emergency (ER) | payer MEDICARE, SELFPAY ==
[2022-04-09 13:42] VITALS: BP 158/78; PULSE 76; RESP 15; TEMP 36.2; O2SAT 97; BMI 27.8
--- NOTE | 2022-04-09 14:25 | VDLE_ITS ---
Reason For Study: Swelling RIGHT GSV is normal. CFV is compressible, spontaneous, phasic, competent and demonstrates normal augmentation. FV is compressible, spontaneous, phasic, competent and demonstrates normal augmentation. POP V is compressible, spontaneous, phasic, competent and demonstrates normal augmentation. T/P Trunk is compressible. PTV is compressible. RT PerV is compressible. Procedure This is a venous duplex using B-mode, color flow and spectral Doppler. Exam performed portable in ED. A preliminary report was called and/or faxed to [facility]. VL/Venous Duplex US, Unilateral Interpretation Summary Deep veins of the right lower extremity are patent and compressible segmentally . There is no evidence of right lower extremity deep vein thrombosis. The right great sapheno us vein appears patent and compressible segmentally. Ordering Physician: Jonas Chacon Referring Physician: Chuck Jarvis Performed By: Ladonna Hartman RVT
--- NOTE | 2022-04-09 14:25 | RAD_ITS ---
INDICATION: chf EXAMINATION/TECHNIQUE: X-RAY - XR Chest 1 View COMPARISON: None. FINDINGS: LINES/DEVICES: None. LUNGS: No consolidation, edema or effusion. No pneumothorax. MEDIASTINUM AND CARDIOVASCULAR STRUCTURES: Cardiac silhouette not enlarged. Central airways and mediastinal contour are unremarkable. BONES AND SOFT TISSUES: Unremarkable. RAD/Chest 1 View (Portable) IMPRESSION: No radiographic evidence of acute cardiopulmonary disease. Electronically Signed: Cesar Aguirre MD at 14:58 EDT ,
--- NOTE | 2022-04-09 14:36 | EDS_ITS ---
HPI History of Present Illness Chief Complaint: Edema Informant: patient and family Narrative Narrative: 82-year-old male presenting to the emergency department chief complaint of right leg swelling. Patient states he started noticing swelling of the leg yesterday. His daughter is with compression stockings on him today. He notes that he is on Xarelto and has not missed any doses recently. He denies any known trauma to the leg. Family reached out to his cancer doctor who recommended he come to the emergency department for evaluation of DVT. Nobody has examined this leg. Family is describing pitting edema. He denies any calf pain. He denies any dys pnea or chest pain. He denies any orthopnea. He notes he has a history of neuropathy. PFSH PFSH Home Medications Zometa IV .[id number] 11/10/20 [History Last Taken 11/08/20] levothyroxine 25 mcg tablet 15 mcg PO DAILY thyroid 11/10/20 [History Last Taken 11/10/20] loratadine 10 mg tablet 10 mg PO DAILY 11/10/20 [History Last Taken 11/09/20] rivaroxaban 20 mg tablet 20 mg PO DAILY blood thinner 11/10/20 [History Last Taken 11/09/20] acyclovir 400 mg tablet 400 mg PO BID 04/09/22 [History Last Taken Unknown] cyanocobalamin (vitamin B-12) 1,000 mcg sublingual tablet 1,000 mcg PO DAILY 04/09/22 [History Last Taken Unknown] pomalidomide 1 mg capsule (Pomalyst) 1 mg PO DAILY 04/09/22 [History Last Taken Unknown] pregabalin 75 mg capsule 75 mg PO DAILY 04/09/22 [History Last Taken Unknown] Allergy/AdvReac Type Severity Reaction Status Date / Time azithromycin Allergy Rash Verified 04/09/22 13:42 Social History (Updated 04/09/22 @ 14:[address] Jonas Chacon DO) current gender identity: male Smoking Status: Never smoker ROS ROS ED Constitutional Constitutional ED: Denies chills or weight loss Eyes Eyes: Denies change in vision or diplopia ENT ENT ED: Denies ear pain, rhinorrhea or sore throat Cardiovascular Cardiovascular: Denies chest pain, orthopnea, palpitations or racing heartbeat Respiratory/Chest Respiratory/Chest: Denies cough, dyspnea, dyspnea on exertion or orthopnea Gastrointestinal Gastrointestinal: Denies abdominal pain, diarrhea, nausea or vomiting Genitourinary Genitourinary ED: Denies dysuria, hematuria or urinary frequency Musculoskeletal Musculoskeletal: Reports other Details: Leg swelling ; Denies arthralgias or myalgias Integumentary Denies abscess or rash Neurologic Neurologic: Denies headache(s) or weakness Psychiatric Psychiatric: Denies anxiety, depression, suicidal ideation or suicidal thoughts Endocrine Endocrinology: Denies polydipsia, polyphagia or polyuria Allergic/Immunologic Allergic/Immunologic ED: Denies mouth swelling, tongue swelling or urticaria EXAM Physical Exam Const Vital Signs: 04/09/22 13:42 Temperature 97.2 F L Temperature Source Temporal Pulse Rate 76 Respiratory Rate 15 Blood Pressure 158/78 H Blood Pressure Mean 104 Pulse Ox 97 Oxygen Delivery Method Room Air Positive well nourished and well developed General Appearance ED: well developed HEENT Reports normocephalic, head/scalp atraumatic and moist mucous membranes Eyes PERRL and EOMs intact bilaterally Neck no lymphadenopathy, supple and no JVD Resp normal respiratory effort and clear to auscultation bilaterally Cardio regular rate, regular rhythm and no murmurs GI normal to inspection, nondistended, normoactive bowel sounds and non-tender Palpation: soft Back/Spine no CVA tenderness and normal ROM Extremity Extremity Narrative: The calves are soft nontender. There is no swelling of the leg above the compression stockings. Compression stockings removed I do not appreciate pitting edema. There is noted more swelling around the ankle but not foot. He does have numerous varicose veins. Neuro oriented x3 and CN's II-XII intact bilaterally Sensorium / Orientation: alert Motor Exam: strength 5/5 throughout Psych mental status grossly normal Mood & Affect: Negative for depressed or tearful Skin no rashes or lesions noted and no wounds MDM MDM MDM Narrative Medical decision making narrative: Duplex ultrasound was negative. My interpretation of the chest x-ray is no acute process. I do not think the patient needs a cardiac evaluation. He is hemodynamically stable 97% on room air. I think most likely this is lymphedema and will most likely be chronic. I would encourage compression stockings return if worsening or concerns Radiography Diagnostic Testing: Clinical Impression(s) from Imaging Studies Chest X-Ray 04/09/22 14:25 IMPRESSION: No radiographic evidence of acute cardiopulmonary disease. Electronically Signed: Cesar Aguirre MD at 14:58 EDT , Discharge Plan Triage Chief Complaint: Edema ED Provider: Jonas Chacon Dx/Rx/DC Orders Clinical Impression: Multiple myeloma, Lymphedema Instructions: ED Peripheral Edema, Unilateral Prescriptions: No Action levothyroxine 25 MCG tablet 15 mcg PO DAILY loratadine 10 MG tablet 10 mg PO DAILY rivaroxaban 20 MG tablet 20 mg PO DAILY Label Comments: TAKE 1 TABLET BY MOUTH EVERY DAY WITH DINNER Zometa IV .[id number] acyclovir 400 mg tablet 400 mg PO BID Label Comments: TAKE 1 TABLET BY MOUTH EVERY 12 HOURS cyanocobalamin (vitamin B-12) 1,000 mcg tablet, sublingual 1,000 mcg PO DAILY Label Comments: DISSOLVE 1 TABLET UNDER THE TONGUE ONCE DAILY. pregabalin 75 mg capsule 75 mg PO DAILY Label Comments: TAKE 1 CAPSULE BY MOUTH EVERY DAY AT BEDTIME FOR 3 DAYS, THEN INCREASE TO TWICE DAILY Pomalyst 1 mg capsule 1 mg PO DAILY Primary Care Provider: Chuck Jarvis Referrals: Chuck Jarvis MD [Primary Care Provider] - 1 Week Disposition Disposition: Home, Self Care
== END 2022-04-09 16:12 | disposition home or self-care (01) ==
PROVIDERS: Emergency Provider Emergency Medicine; PCP Family Medicine; Visit Provider Emergency Medicine
DX: C90.00 Multiple myeloma not having achieved remission (principal); I89.0 Lymphedema, not elsewhere classified; Z79.01 Long term (current) use of anticoagulants
CPT/HCPCS: 71045; 93971; 99282

== ENCOUNTER → 2023-06-26 | Outpatient (CLI) | payer MEDICARE, SELFPAY ==
--- NOTE | 2023-06-26 13:03 | NEURO ---
NCS and/or EMG Patient Report Ordering Doctor: LETICIA TAM DATE OF SERVICE: 06/26/23 Clinical Summary: 83 year old male patient presenting with symptoms of numbness, tingling, and pain in the distal lower extremities. He has a history of lumbar spine surgery. This EMG/NCS was performed to evaluate for peripheral polyneuropathy. Nerve Conduction Studies Summary: All SNAP's were absent bilaterally. The right peroneal-EDB CMAP amplitude was reduced diffusely. The peroneal and tibial motor conduction velocities were reduced bilaterally. Needle Examination Summary: Needle examination demonstrated that there was a higher proportion of motor unit action potentials with increased amplitude and increased duration in the bilateral tibialis anterior muscles. Impression: There is electrodiagnostic evidence of the following - 1) Predominantly axonal, sensorimotor, peripheral polyneuropathy Comment: chronic neurogenic changes seen in the tibialis anterior muscles can also be seen in the setting, but is definitively diagnostic by itself, of a chronic, mild, bilateral L5 radiculopathies. Multi Select Codes Neurology Neurology Interp Codes: 14011-91 Musc test done w/n test comp (interp) (2) and 41824-30 Nrv cndj test 7-8 studies (interp)
== END | disposition home or self-care (01) ==
LOC: PSN 10:23
PROVIDERS: Referring Provider Physician Assistant Medical; Visit Provider Physician Assistant Medical
DX: G62.9 Polyneuropathy, unspecified (principal); M62.81 Muscle weakness (generalized)
CPT/HCPCS: 95886; 95910

== ENCOUNTER → 2025-05-19 | Outpatient (REF) | payer MEDICARE, SELFPAY ==
--- OUTSIDE RECORDS SUMMARY | 2025-05-20 06:56 | XMS RPT_ITS | CCD ---
Author Organization [facility] Care Team Providers Care Deputy Coroner Investigator Name Role Phone Juan J QUINN, Jasmina Herr Unavailable Wilian HORNER MD, Dasravanthiung Unavailable [phone] Tristen Raphael MD Unavailable Juan J RN, Jasmina Herr Unavailable Wilian HORNER MD, Daesung Unavailable [phone] Tristen Raphael MD Unavailable Agnieszka Mejia Unavailable Juan J RNJasmina Unavailable Agnieszka Mejia MD Unavailable JOCELYNE HORNER, NE Osullivan Unavailable SANJANA CASANOVA MD Unavailable OMARI CARROLL Unavailable [place] Unavailable Unavailable [facility] Unavailabl e Unavailable Jeannine DENNEY MD Unavailable Tomy NOLAN MD Unavailable YURI HORNER, RAJESH Ventura Unavailable Danilo QUINN, Margarita Unavailable Unavailable Josiah RN, Raina Unavailable UnavailMYA Lanza Unavailable Unavailable Silva QUINN, Karen Unavailable Unavailable Yanci Pal Unavailable Unavailable Eddie Pal Unavailable Unavailable RICARDO CLAYTON Unavailable Unavailable Juhi Nolan Unavailable Unavailable OMAR TAO Unavailable Unavailable NORBERTO YUAN-MOE Terrazas Unavailable Unavailable Unavailable Wilian HORNER, Daesung Unavailable OVIDIO CUSTOM SKI MAKER-BC, DELIA R Unavailable Donavon HORNER, Tristen Unavailable NORBERTO CUSTOM SKI MAKER-C, MOE Bailey Unavailable Unav ailable DONAVON, TRISTEN Referring Unavailable DONAVON, TRISTEN Referring Unavailable DONAVON, TRISTEN Referring Unavailable PODUGU, SERAFIN Primary Care Unavailable PODUGU, SERAFIN Admitting Unavailable PODUGU, SIXTO HORNER Consulting Unavailable PODUGU, SERAFIN Attending Unavailable PROVIDER, UNKNOWN Consulting Unavailable PROVIDER, UNKNOWN Consulting Unavailable PROVIDER, UNKNOWN Consulting Unavailable PODUGU, SERAFIN Admitting Unavailable PODUGU, SIXTO HORNER Consulting Unavailable PODUGU, SERAFIN Attending Unavailable PODUGU, SERAFIN Primary Care Unavailable PROVIDER, UNKNOWN Consulting Unavailable PROVIDER, UNKNOWN Consulting Unavailable PROVIDER, UNKNOWN Consulting Unavailable Provider MD, Not In System Primary Care Provider Unavailable Figer WOOD ENGRAVER, Madina Unavailable Unavailable JOLIE, MICHAEL VELA Attending Unavailable QUEENER, FARRAH Attending Unavailable QUEENER, FARRAH Referring Unavailable DONAVON, TRISTEN Referring Unavailable DONAVON, TRISTEN Referring Unavailable BLAKE, ELLEN Referring Unavailable ROXANA, PABLO Referring Unavailable DONAVON, TRISTEN Referring Unavailable ASHOUR, SHONNAEK Attending Unavailable QUEENER, FARRAH Attending Unavailable QUEENER, FARRAH Referring Unavailable DONAVON, TRISTEN Referring Unavailable DONAVON, TRISTEN Referring Unavailable DONAVON, TRISTEN Referring Unavailable FITCHZULLY Attending Unavailable DONAVON, TRISTEN Referring Unavailable DONAVON, TRISTEN Referring Unavailable DONAVON, TRISTEN Referring Unavailable VALENT, DAMIEN Stratton Attending Unavailable JACKELYN, JOHANN T Admitting Unavailable ASHOUR, TAREK Referring Unavailable DONAVON, TRISTEN Referring Unavailable DONAVON, TRISTEN Attending Unavailable ARELLANOJUHI Attending Unavailable DONAVON, TRISTEN Attending Unavailable DONAVON, TRISTEN Referring Unavailable DONAVON, TRISTEN Referring Unavailable DONAVON, TRISTEN Attending Unavailable Allergies Allergy Classification Reported Allergen(s) Allergy Type Date of Onset Reaction(s) Facility Macrolides (antibiotic) (1 source) Azithromycin Drug Allergy 0 Rash [facility] Penicillins (antibiotic) (2 sources) Amoxicillin Drug Allergy 9 Unknown [facility] Sulfonamides (antibiotic) (2 sources) Sulfonamides (Antibiotic) Drug [facility] [place] Work Phone: (20 sources) Azithromycin; Translations: [AZITHROMYCIN] Drug Allergy 0 Rash [facility] (20 sources) Amoxicillin Drug Allergy 9 Unknown, Other (See Comments) [facility] [place] [place] (8 sources) Sulfon[facility]ides (Antibiotic) 9 [facility] [place] Sulfonamides (Antibiotic); Translations: [SULFA (SULFONAMIDE ANTIBIOTICS)] Drug Allergy 9 Unknown, Other (See Comments) [facility] (4 sources) Amoxicillin; Translations: [AMOXICILLIN] Drug Allergy 9 [facility] (4 sources) Erythromycin; Translations: [ERYTHROMYCIN] Drug Allergy 5 Rash [facility] Medications Current Medications Medication Drug Class(es) Dates Sig (Normalized) Sig (Original) levothyroxine sodium 0.05 mg oral tablet (20 sources) l-Thyroxine Start: 01-26-2025 End: 03-24-2025 take 1 tablet by mouth once daily before breakfast levothyroxine (SYNTHROID) 50 mcg tablet Indications: Medication refill Take 1 tablet (50 mcg total) by mouth every morning (before breakfast) for 5 days 5 tablet 03/19/2025 03/24/2025 Active Start: 11-19-2019 take 1 tablet by tiffany th once daily SYNTHROID 25 mcg tablet Take 25 mcg by mouth once daily. 11/19/2019 Suspended Comment on above: Take 25 mcg by mouth once daily. phenazopyridine hydrochloride 200 mg oral tablet (1 source) Start: 5 End: 5 take 1 tablet by mouth three times daily as needed for pain phenazopyridine (PYRIDIUM) 200 mg tablet Indications: Dysuria Take 1 tablet (200 mg total) by mouth 3 times a day as needed for Pain 9 tablet 03/19/2025 03/22/2025 Active Saccharomyces boulardii (9 sources) Probiotic ; 1 da tai Completed/Discontinued Medications Medication Drug Class(es) Dates Sig (Normalized) Sig (Original) acetaminophen 325 mg oral tablet (20 sources) Start: 07-19-2020 take 2 tablets by mouth every six hours as needed acetaminophen (TYLENOL) 325 mg tablet Take 2 tablets by mouth every 6 hours as needed. 07/19/2020 Suspended Comment on above: [facility] hours as needed. acyclovir 400 mg oral tablet (20 sources) Herpesvirus Nucleoside Analog DNA Polymerase Inhibitor, Herpes Simplex Virus Nucleoside Analog DNA Polymerase Inhibitor, Herpes Zoster Virus Nucleoside Analog DNA Polymerase Inhibitor Start: 01-05-2021 End: 10-30-2022 take 1 tablet by mouth every twelve hours acyclovir (ZOVIRAX) 400 mg tablet Take 1 tablet by mouth every 12 hours. 120 tablet 3 01/05/2021 11/14/2021 Discontinued take 1 tablet by mouth twice stefanie ly Acyclovir 400 MG Oral Tablet ; 1 bid (400 MG) Status: Inactive Comment on above: Take 1 tablet by [facility] every 12 hours. albuterol 5 mg/ml inhalation solution (9 sources) beta2-Adrenergic Agonist Albuterol Sulfate 2.5 MG/0.5ML Inhalation Nebulization Solution ; prn (2.5 MG/0.5ML) Status: Inactive aspirin 81 mg delayed release oral tablet (9 sources) Platelet Aggregation Inhibitor, Nonsteroidal Anti-inflammatory Drug take 1 tablet by mouth once daily ASPIRIN EC, 81MG (Oral Tablet Delayed Release) ; 1 daily (81 MG) Status: Inactive azithromycin 250 mg oral tablet (20 sources) Macrolide Antimicrobial Start: 02-01-20 End: 02-06-20 Azithromycin 250 MG Oral Tablet ; 2 (two) Tablet on day one, then 1 tablet daily for 4 days for 5 days Quantity: 6 {Tablet} Refills: 0 Ordered: 14-Mar-2022 MD NE CASANOVA Start: 31-Jan-2022 End: 05-Feb-2022 Status: Inactive Start: 05-28-2021 End: 06-02-2021 Azithromycin 250 MG Oral Tab let ; 2 (two) Tablet on day one, then 1 tablet daily for 4 days for 5 days Quantity: 6 {Tablet} Refills: 0 Ordered: 04-Jun-2021 MD NE CASANOVA Start: 28-May-2021 End: 02-Jun-2021 Status: Inactive Start: 04-25-2015 End: 04-30-2015 AZITHROMYCIN, 250MG (Oral Ta blet) ; 2 x 1 then 1 x 4 Tablet daily for 5 days Quantity: 6 {Tablet} Refills: 0 Ordered: 25-Apr-2015 MD Jeannine DENNEY Start: 25-Apr-2015 End: 30-Apr-2015 Status: Inactive Comments: take two tablets day one and then one tablet daily for 4 days Comment on above: take two tablets day one and then one tablet daily for 4 days baclofen 10 mg oral tablet (9 sources) gamma-Aminobutyric Acid-ergic Agonist take 1 tablet by mouth once daily Baclofen 10 MG Oral Tablet ; 1 daily (10 MG) Status: Inactive benzonatate 100 mg oral capsule (20 sources) Non-narcotic Antitussive Start: 2 End: 3 take 1 capsule by mouth every six hours as needed benzonatate (TESSALON PERLE) 100 mg capsule Take 1 capsule by mouth every 6 hours as needed for cough. 60 capsule 0 02/06/2022 10/30/2022 Discontinued Start: 04-25-2015 End: 05-05-2015 take 1 capsule by mouth three times daily as needed for cough BENZONATATE, 200MG (Oral Capsule) ; 1 (one) Capsule tid prn cough for 10 days Quantity: 30 {Capsule} Refills: 0 Ordered: 25-Apr-2015 MD Jeannine DENNEY Start: 25-Apr-2015 End: 05-May-2015 Status: Inactive Comment on above: Take 1 capsule by [facility] every 6 hours as needed for cough. betamethasone 0.5 mg/ml / clotrimazole 10 mg/ml topical cream (9 sources) Azole Antifungal, Corticosteroid Start: 019 End: Lotrisone 1-0.05 % External Cream ; 1 (one) Application two times daily for 10 days Quantity: 1 {Tube} Refills: 0 Ordered: 04-Mar-2019 MD NE CASANOVA Start: 11-Feb-2019 End: 21-Feb-2019 Status: Inactive bortezomib 3.5 mg injection (9 sources) Proteasome Inhibitor Velcade 3.5 MG Injection Solution Reconstituted ; q week (3.5 MG) Status: Inactive Comments: for chemo Comment on above: for chemo calcium carbonate 500 mg chewable tablet (20 sources) Start: 020 take 2 tablets by mouth twice daily calcium carbonate (CALCIUM ANTACID) 500 mg chew Take 2 tablets by mouth twice daily. 0 03/30/2020 Suspended Comment on above: [facility]. calcium carbonate 625 mg / cholecalciferol 125 unt oral tablet (12 sources) Vitamin D Start: 025 take 1 tablet by mouth twice daily calcium-cholecalcifer ol, D3, (OSCAL+D 250) 250 mg-3.125 mcg (125 unit) per tablet Take 1 tablet by mouth two times a day. 60 tablet 11 03/15/2025 Suspended cephalexin 500 mg oral capsule (9 sources) Cephalosporin Antibacterial Start: 012 End: 012 take 1 capsule by mouth three times daily CEPHALEXIN, 500MG (Oral Capsule) ; 1 (one) Capsule three times daily for 7 days Quantity: 21 {Capsule} Refills: 0 Ordered: 14-Mar-2012 MD Tomy NOLAN Start: 21-Jan-2012 End: 28-Jan-2012 Status: Inactive chlordiazePOXIDE hydrochloride 5 mg / clidinium bromide 2.5 mg oral capsule (9 sources) Anticholinergic, Benzodiazepine Start: 017 End: 018 take 1 capsule by mouth three times daily as needed Librax 5-2.5 MG Oral Capsule ; 1 (one) Capsule Capsule three times daily, as needed for colitis for 0 days Quantity: 30 {Capsule} Refills: 3 Ordered: 13-Apr-2018 KAI Carrasco Start: 19-Dec-2016 End: 13-Apr-2018 Status: Inactive Comments: Medication taken as needed. Comment on above: Medication taken as needed. cholecalciferol 0.025 mg oral tablet (20 sources) Vitamin D Start: 020 take 1 tablet by mouth once daily cholecalciferol (VITAMIN D3) 1,000 unit tab tablet 1 tablet by ORAL/FEEDING TUBE route once daily. 07/19/2020 Suspended Start: 07-19-2020 [facility] cholecalciferol (VITAMIN D3) 1,000 unit tab tablet 1 tablet by ORAL/FEEDING TUBE route once daily. 0 07/19/2020 Active Comment on above: 1 tablet by ORAL/FEE DING TUBE route once daily. cholestyramine resin 4000 mg powder for oral suspension (20 sources) Bile Acid Sequestrant Start: 07-17-20 21 End: 08-16-19 25 take 1 dose by mouth three times daily as needed cholestyramine (QUESTRAN) 4 gram packet take ONE PACKET BY MOUTH THREE TIMES DAILY NEEDED 90 Each 4 08/16/2024 Suspended Start: 12-25-2020 End: 04-23-2021 take 1 g by mouth every eight hours as needed cholestyramine-sucrose (QUESTRAN) 4 gram powder Take 1 g by mouth three times daily as needed. 30 Packet 3 12/25/2020 04/23/2021 Discontinued Comment on above: TAKE 1 G BY MOUTH TH REE TIMES DAILY NEEDED. [facility] NEEDED codeine phosphate 2 mg/ml / guaiFENesin 20 mg/ml oral solution (9 sources) Opioid Agonist Start: 04-25-20 End: 05-02-20 15 GUAIFENESIN AC, 100-10MG/5ML (Oral Syrup) ; 1 (one) Syrup every 4-6 hours prn cough for 7 days Quantity: 4 {Ounce} Refills: 0 Ordered: 25-Apr-2015 MD Jeannine DENNEY Start: 25-Apr-2015 End: 02-May-2015 Status: Inactive Comments: Do not take if driving or running equipment. Comment on above: Do not take if drivi ng or running equipment. colestipol hydrochloride 1000 mg oral tablet (9 sources) Bile Acid Sequestrant take 1 tablet by mouth once daily Colestipol HCl 1 GM Oral Tablet ; 1 daily (1 GM) Status: Inactive DAILY MULTIPLE VITAMINS (Oral Tablet) (9 sources) take 1 tablet by mouth once daily DAILY MULTIPLE VITAMINS (Oral Tablet) ; 1 daily Status: Inactive dexamethasone 4 mg oral tablet (20 sources) Corticosteroid Start: 02-07-20 End: 07-31-19 23 dexAMETHasone (DECADRON) 4 mg tablet Take 2 pills weekly (3 weeks/1 week off) 60 tablet 3 02/06/2022 07/31/2022 Discontinued Start: 11-23-2021 End: 11-30-2021 Dexamethasone Sodium Phospha te 0.1 % Ophthalmic Solution ; 1 (one) Metric Drop three times daily in each eye for 7 days Quantity: 1 {Each} Refills: 0 Ordered: 24-Jan-2022 MD Tomy NOLAN Start: 23-Nov-2021 End: 30-Nov-2021 Status: Inactive Comments: 1 bottle Start: 09-19-2021 End: 02-06-2022 dexAMETHasone (DECADRON) 4 m g tablet Take 5 pills every other week (on the day of velcade in the am with food) 60 tablet 3 09/19/2021 02/06/2022 Discontinued Start: 06-20-2021 End: 08-16-2021 dexAMETHasone (DECADRON) 4 m g tablet Take 5 pills every other week (on the day of velcade in the am with food) 60 tablet 3 06/20/2021 08/16/2021 Discontinued Start: 03-05-2021 End: 06-20-2021 dexAMETHasone (DECADRON) 4 m g tablet Take 5 pills weekly x 3 weeks and 1 week off (on the day of velcade in the am with food) 60 tablet 3 03/05/2021 06/20/2021 Discontinued Dexamethasone 4 MG Oral Tablet ; as directed (4 MG) Status: Inactive Comment on above: Take 5 pills every o ther week (on the day of velcade in the am with food) Take 2 pills weekly (3 weeks/1 week off) 1 bottle diclofenac sodium 0.01 mg/mg topical gel (20 sources) Nonsteroidal Anti-inflammatory Drug Start: 024 End: apply 4 g topically every six hours as needed diclofenac (VOLTAREN ARTHRITIS PAIN) 1 % topical gel Apply 4 g to affected area four times a day as needed. 100 g 1 08/06/2023 09/06/2024 Discontinued Comment on above: Apply 4 g to affecte d area four times a day as needed. dicyclomine hydrochloride 20 mg oral tablet (18 sources) Anticholinergic Start: 021 End: take 1 tablet by mouth four times daily as needed Dicyclomine HCl 20 MG Oral Tablet ; 1 (one) Tablet four times daily, as needed for 10 days Quantity: 40 {Tablet} Refills: 0 Ordered: 08-Dec-2020 URSULA THORNTON Start: 08-Dec-2020 End: 18-Dec-2020 Status: Inactive Comments: Medication taken as needed. take 1 capsule by mo ut three times daily as needed Bentyl 10 MG Oral Capsule ; 1 three time s daily as needed (10 MG) Status: Inactive Comments: Medication taken as needed. Comment on above: Medication taken as needed. doxycycline hyclate 100 mg oral capsule (15 sources) Tetracycline-class Drug Start: 12-24-2023 End: 01-23-2024 doxycycline hyclate 100 mg capsule ; 1 (one) Capsule two times daily with meals for 30 days Quantity: 60 {Capsule} Refills: 0 Ordered: 24-May-2024 AMALIA NOLAN Start: 24-Dec-2023 End: 23-Jan-2024 Status: Inactive Start: 04-19-2021 End: 04-26-2021 take 1 capsule by mouth twice daily at mealtime Doxycycline Hyclate 100 MG Oral Capsule ; 1 (one) Capsule two times daily with meals for 7 days Quantity: 14 {Capsule} Refills: 0 Ordered: 04-May-2021 MD NE CASANOVA Start: 19-Apr-2021 End: 26-Apr-2021 Status: Inactive gabapentin 300 mg oral capsule (10 sources) Anti-epileptic Agent Start: 03-08-2021 End: 08-09-2021 take 1 capsule by mouth once daily at bedtime gabapentin (NEURONTIN) 300 mg capsule Indications: Spinal stenosis, lumbar region with neurogenic claudication , S/P lumbar fusion Take 1 capsule by mouth daily at bedtime for 30 days. 30 capsule 03/08/2021 08/09/2021 Discontinued take 1 mg by mouth three times d aily Neurontin 300 MG Oral Capsule ; tid (300 MG) Status: Inactive Comments: Temporary. Comment on above: Temporary. 12 hr guaiFENesin 600 mg extended release oral tablet (20 sources) Start : 02-06 End: 10-30 take 2 tablets by mouth twice daily guaiFENesin (MUCINEX) 600 mg 12 hr tablet Take 2 tablets by mouth twice daily. 60 tablet 0 02/06/2022 10/30/2022 Discontinued Comment on above: Take 2 tablets [facility]. 12 hr guaiFENesin 600 mg / pseudoephedrine hydrochloride 60 mg extended release oral tablet (9 sources) alpha-Adrenergic Agonist Start : 03-22 End: 07-28 Mucinex D 60 mg-600 mg tablet,extended release ; 1 (one) Tablet two times daily for 0 days Quantity: 18 {Tablet} Refills: 0 Ordered: 28-Jul-2023 KAI Carrasco Start: 22-Mar-2022 End: 28-Jul-2023 Status: Inactive homatropine methylbromide 0.3 mg/ml / HYDROcodone bitartrate 1 mg/ml oral solution (9 sources) Opioid Agonist, Cholinergic Muscarinic Agonist Start : 02-04 End: 07-28 take 5 mL by mouth every eight hours as needed Hycodan (with homatropine) 5 mg-1.5 mg/5 mL oral syrup ; 5 Milliliter every eight hours as needed for 0 days Quantity: 60 {Milliliter} Refills: 0 Ordered: 28-Jul-2023 KAI Carrasco Start: 04-Feb-2022 End: 28-Jul-2023 Status: Inactive Comments: Medication taken as needed. Comment on above: Medication taken as needed. hydroCHLOROthiazide 25 mg oral tablet (9 sources) Thiazide Diuretic take 1 tablet by mouth once daily hydroCHLOROthiazide 25 MG Oral Tablet ; 1 daily (25 MG) Status: Inactive hydroCHLOROthiazide 25 mg / lisinopril 20 mg oral tablet (9 sources) Thiazide Diuretic, Angiotensin Converting Enzyme Inhibitor End: 04-13 take 1 tablet by mouth once daily Lisinopril-Hydrochloroth iazide 20-25 MG Oral Tablet ; 1 daily (20-25 MG) End: 13-Apr-2018 Status: Inactive Comments: not sure of dose Comment on above: not sure of dose indomethacin 50 mg oral capsule (9 sources) Nonsteroidal Anti-inflammatory Drug Start : 12-08 End: 12-18 take 1 capsule by mouth three times daily Indomethacin 50 MG Oral Capsule ; 1 (one) Capsule three times daily for 10 days Quantity: 30 {Capsule} Refills: 0 Ordered: 08-Dec-2020 URSULA THORNTON Start: 08-Dec-2020 End: 18-Dec-2020 Status: Inactive ketoconazole 20 mg/ml topical cream (9 sources) Azole Antifungal Start : 03-16 End: 03-30 KETOCONAZOLE, 2% (External Cream) ; 1 Cream two times daily for 14 days Quantity: 1 {Cream} Refills: 0 Ordered: 30-Apr-2012 MD YURI RAJESH Ventura Start: 16-Mar-2012 End: 30-Mar-2012 Status: Inactive lenalidomide 15 mg oral capsule (9 sources) Thalidomide Analog take 1 mg by mouth once daily Revlimid 15 MG Oral Capsule ; q day x 3 weeks (15 MG) Status: Inactive Comments: chemo Comment on above: chemo levoFLOXacin 750 mg oral tablet (20 sources) Quinolone Antimicrobial Start : 03-14 End: 03-21 take 1 tablet by mouth once daily Levaquin 750 MG Oral Tablet ; 1 (one) Tablet daily for 7 days Quantity: 7 {Tablet} Refills: 0 Ordered: 14-Mar-2022 MD NE CASANOVA T Start: 14-Mar-2022 End: 21-Mar-2022 Status: Inactive Levaquin ; daily Status: Inactive End: 04-24-2022 take 1 tablet by mouth once daily levoFLOXacin (LEVAQUIN) 500 mg tablet Take 500 mg by mouth once daily. 0 04/24/2022 Discontinued Comment on above: Take 500 mg by mouth once daily. loratadine 10 mg oral tablet (20 sources) End: 09-06-2024 take 1 tablet by mouth once daily LORATADINE, 10MG (Oral Tablet) ; 1 daily (10 MG) Status: Inactive End: 01-29-2023 loratadine 10 mg cap Take 10 mg by mouth. 01/29/2023 Discontinued Comment on above: Take 10 mg by mouth. losartan potassium 50 mg oral tablet (20 sources) Angiotensin 2 Receptor Moises Start: 01-18-2023 End: 03-24-2025 take 1 tablet by mouth once daily losartan (COZAAR) 50 mg tablet Take 50 mg by mouth once daily. 01/18/2023 Suspended losartan 25 mg t ablet ; 1 daily (25 mg) Comments: Yard Rigger Comment on above: Take 50 mg by mouth once daily. Yard Rigger mecobalamin 1 mg sublingual tablet (20 sources) Start: 1 End: 5 mecobalamin, vitamin B12, 1,000 mcg ODT Dissolve 1 tablet under the tongue once daily. 90 tablet 3 07/27/2024 Suspended Comment on above: Dissolve 1 tablet un stephen the tongue once daily. Melatonin (9 sources) Melatonin ; prn Status: Inactive mirtazapine 15 mg oral tablet (20 sources) Start: End: take 1 tablet by mouth once daily at bedtime mirtazapine (REMERON) 15 mg tablet Take 1 tablet by mouth daily at bedtime. 30 tablet 1 02/22/2025 03/23/2025 Discontinued (Side Effects) Start: 12-07-2020 End: 09-17-2021 take 1 tablet by mouth once daily at bedtime mirtazapine (REMERON) 15 mg tablet TAKE 1 TABLET BY MOUTH EVERYDAY AT BEDTIME 90 tablet 1 09/17/2021 Active Comment on above: TAKE 1 TABLET BY TIFFANY TH EVERYDAY AT BEDTIME OLANZapine 2.5 mg oral tablet (8 sources) Atypical Antipsychotic Start: End: take 1 tablet by mouth once daily at bedtime OLANZapine (ZYPREXA) 2.5 mg tablet Take 1 tablet by mouth daily at bedtime for 15 days. 15 tablet 03/23/2025 04/07/2025 Suspended ondansetron 8 mg disintegrating oral tablet (9 sources) Serotonin-3 Receptor Antagonist take 1 tablet by mouth every eight hours as needed Ondansetron 8 MG Oral Tablet Disintegrating ; 1 q 8 hours prn (8 MG) Status: Inactive pomalidomide 1 mg oral capsule (20 sources) Thalidomide Analog Start: pomalidomide (POMALYST) 1 mg capsule Indications: Multiple myeloma, remission status unspecified (HCC) TAKE 1 CAPSULE BY MOUTH 1 TIME A DAY FOR 21 DAYS ON THEN 7 DAYS OFF 21 capsule 03/24/2025 Suspended Start: 07-15-2023 End: 02-17-2025 pomalidomide (POMALYST) 1 mg capsule Indications: Multiple myeloma, remission status unspecified (HCC) TAKE 1 CAPSULE BY MOUTH 1 TIME A DAY FOR 21 DAYS ON THEN 7 DAYS OFF 21 capsule 02/17/2025 Active Start: 02-27-2023 End: 06-19-2023 pomalidomide (POMALYST) 1 mg capsule Indications: Multiple myeloma, remission status unspecified (HCC) TAKE 1 CAPSULE ONCE DAILY FOR 21 DAYS ON WITH 7 DAYS OFF 21 capsule 0 06/19/2023 Active Start: 01-28-2023 pomalidomide ( POMALYST) 1 mg capsule Indications: Multiple myeloma, remission status unspecified (HCC) TAKE 1 CAPSULE ONCE DAILY FOR 21 DAYS ON WITH 7 DAYS OFF 21 capsule 0 01/28/2023 Active Start: 03-27-2022 End: 01-02-2023 pomalidomide (POMALYST) 1 mg capsule Indications: Multiple myeloma, remission status unspecified (HCC) TAKE 1 CAPSULE ONCE DAILY FOR 21 DAYS ON WITH 7 DAYS OFF 21 capsule 0 10/07/2022 11/04/2022 Discontinued Start: 10-03-2021 End: 03-22-2022 pomalidomide (POMALYST) 1 mg capsule Indications: Multiple myeloma, remission status unspecified (HCC) TAKE 1 CAPSULE ONCE DAILY FOR 21 DAYS ON WITH 7 DAYS OFF 21 capsule 0 02/26/2022 03/22/2022 Discontinued Start: 07-17-2021 End: 08-09-2021 pomalidomide (POMALYST) 1 mg capsule Indications: Multiple myeloma, remission status unspecified (HCC) TAKE 1 CAPSULE ONCE DAILY FOR 21 DAYS ON WITH 7 DAYS OFF 21 capsule 07/17/2021 08/09/2021 Discontinued Start: 02-13-2021 End: 03-08-2021 pomalidomide (POMALYST) 1 mg capsule Indications: Multiple myeloma, remission status unspecified (HCC) Take 1 capsule (1 mg) by mouth once daily. x 21 days with 7 days off 21 capsule 02/13/2021 03/08/2021 Discontinued Comment on above: TAKE 1 CAPSULE ONCE DAILY FOR 21 DAYS ON WITH 7 DAYS OFF 21 days and off 7 da ys predniSONE 10 mg oral tablet (20 sources) Start: 12-24-2023 End: 01-05-2024 predniSONE 10 mg tablet ; 4 Tablets days 1,2,3; 3 tablets days 4,5,6: 2 tablets days 7,8,9: 1 tablet days 10,11,12 for 12 days Quantity: 30 {Tablet} Refills: 0 Ordered: 24-May-2024 AMALIA NOLAN Start: 24-Dec-2023 End: 05-Jan-2024 Status: Inactive Comments: Take with food. Start: 07-28-2023 End: 07-31-2023 predniSONE 10 mg tablet ; 4 Tablet daily for 3 days Quantity: 30 {Tablet} Refills: 0 Ordered: 03-Nov-2023 MD NE CASANOVA Start: 28-Jul-2023 End: 31-Jul-2023 Status: Inactive Start: 12-16-2017 End: 12-28-2017 PredniSONE 10 MG Oral Tablet ; 4 Tablets days 1,2,3; 3 tablets days 4,5,6: 2 tablets days 7,8,9: 1 tablet days 10,11,12 for 12 days Quantity: 30 {Tablet} Refills: 0 Ordered: 13-Jan-2018 MD Jeannine DENNEY Start: 16-Dec-2017 End: 28-Dec-2017 Status: Inactive Comments: Take with food. Start: 2012 End: 02-02-2012 PREDNISONE (СВЕТЛАНА), 10MG (Oral Tablet) ; Tablet D1-3=4tab D4-6=3tab; D7-9=2tab; L87-35=1bxb for 12 days Quantity: 30 {Tablet} Refills: 0 Ordered: 14-Mar-2012 MD Tomy NOLAN Start: 21-Jan-2012 End: 02-Feb-2012 Status: Inactive Comments: Days 1,2,3 = 4 tabs daily; Days 4, 5, 6 = 3 tabs daily; Days 7, 8, 9 = 2 tabs daily; Days 10,11,12 = 1 tab daily Comment on above: Days 1,2,3 = 4 tabs daily; Days 4, 5, 6 = 3 tabs daily; Days 7, 8, 9 = 2 tabs daily; Days 10,11,12 = 1 tab daily Take with food. pregabalin 25 mg oral capsule (20 sources) Start: 07-27-2024 End: 07-27-2025 take 1 capsule by mouth twice daily pregabalin (LYRICA) 25 mg capsule Indications: Neuropathy , Numbness and tingling Take 1 capsule by mouth two times a day for 7 days. 14 capsule 03/23/2025 Suspended Start: 10-10-2022 End: 07-27-2024 take 1 capsule by mouth three times daily pregabalin (LYRICA) 25 mg capsule Indications: Neuropathy , Numbness and tingling Take 1 capsule by mouth three times a day for 180 days. 270 capsule 1 01/27/2024 07/27/2024 Discontinued Start: 10-04-2021 End: 11-18-2022 take 1 capsule by mouth twice daily pregabalin (LYRICA) 25 mg capsule Indications: Neuropathy , Numbness and tingling Take 1 capsule by mouth twice daily for 90 days. 180 capsule 0 08/20/2022 10/10/2022 Discontinued End: 08-09-2021 take 2 capsules by mouth twice daily pregabalin (LYRICA) 25 mg capsule Take 50 mg by mouth twice daily. 08/09/2021 Discontinued (Side Effects) Comment on above: Take 1 capsule by [facility] twice daily for 90 days. Take one capsule at bedtime for two weeks. Can increase to one capsule twice daily. Take one capsule in AM and two capsules in PM. Take 1 capsule by [facility] twice daily for 90 days. Take 1 capsule by [facility] three times daily for 90 days. Take 1 capsule by [facility] three times daily for 180 days. Take 1 capsule by [facility] three times a day for 180 days. rivaroxaban 20 mg oral tablet (20 sources) Factor Xa Inhibitor Start: 02-11-2022 End: 03-24-2025 take 1 tablet by mouth once daily at dinner rivaroxaban (XARELTO) 20 mg tablet TAKE 1 TABLET BY MOUTH EVERY DAY WITH DINNER 90 tablet 1 07/27/2024 Suspended Start: 06-20-2021 End: 11-14-2021 take 1 tablet by mouth once daily at dinner XARELTO 20 mg tablet TAKE 1 TABLET BY MOUTH EVERY DAY WITH DINNER 30 tablet 4 06/20/2021 11/14/2021 Discontinued Start: 06-26-2020 End: 03-16-2021 take 1 tablet by mouth once daily at dinner rivaroxaban (XARELTO) 20 mg tablet Take 1 tablet by mouth daily with dinner. 30 tablet 4 06/26/2020 03/16/2021 Discontinued Xarelto 15 MG Or al Tablet ; 1 bid (15 MG) Comments: bid x 3 weeks then 20mg daily. Started 03-30-20 Comment on above: TAKE 1 TABLET BY [facility] EVERY DAY WITH DINNER bid x 3 weeks then 2 0mg daily. Started 03-30-20 sodium chloride 0.111 meq/ml nasal solution (9 sources) Saline 0.65 % (S oln) Nasal Solution ; 2 sprays qid (0.65 % (Soln)) Status: Inactive sulfamethoxazole 800 mg / trimethoprim 160 mg oral tablet (9 sources) Dihydrofolate Reductase Inhibitor Antibacterial, Sulfonamide Antimicrobial Start: End: take 1 tablet by mouth twice daily Bactrim DS 800-160 MG Oral Tablet ; 1 (one) Tablet two times daily for 10 days Quantity: 20 {Tablet} Refills: 0 Ordered: 04-Mar-2019 MD NE CASANOVA Start: 11-Feb-2019 End: 21-Feb-2019 Status: Inactive vitamin b12 1 mg sublingual tablet (20 sources) Vitamin B12 Start: 022 End: Cyanocobalamin 1,000 mcg subl DISSOLVE 1 TABLET UNDER THE TONGUE ONCE DAILY. 90 tablet 3 06/10/2022 11/12/2023 Discontinued Vitamin B-12 ; d daquan Comment on above: DISSOLVE 1 TABLET UN STEPHEN THE TONGUE ONCE DAILY. Problems Active Problems Problem Classification Problem Date Documented Date Episodic/Chronic Acute bronchitis (1 source) Acute bronchitis; Translations: [Acute bronchitis, unspecified] Episodic Adjustment disorders (1 source) Adjustment disorder with depressed mood; Translations: [Grief] Onset: 5 Chronic Administrative/social admission (11 sources) Patient encounter status; Translations: [Counseling, unspecified] Onset: 5 07-28-2023 Episodic Anxiety disorders (19 sources) Anxiety; Translations: [Anxiety disorder, unspecified] 12-08-2020 Chronic Chronic kidney disease (20 sources) Chronic kidney disease stage 3A ; Translations: [Stage 3a chronic kidney disease] Onset: 0 07-19-2020 Chronic Comment on above: creat 1.9 (03/20/20) Chronic kidney disease (1 source) Chronic kidney disease; Translations: [Stage 3b chronic kidney disease (HCC)] Onset: 4 Chronic ulcer of skin (18 sources) Pressure ulcer of sacral region; Translations: [Pressure ulcer of sacral region, stage 2] Onset: 0 12-08-2020 Chronic Coagulation and hemorrhagic disorders (20 sources) Platelet count below reference range; Translations: [Thrombocytopenia, unspecified] Onset: 0 07-19-2020 Chronic Coagulation and hemorrhagic disorders (1 source) Thrombocytopenia due to drugs; Translations: [Other secondary thrombocytopenia] 01-29-2023 Episodic Diabetes mellitus with complications (1 source) Other specified diabetes mellitus with diabetic chronic kidney disease; Translations: [Other specified diabetes mellitus with diabetic chronic kidney disease, unspecified CKD stage, unspecified whether ocean transportation intermediary insulin use (HCC)] Onset: 4 Chronic Diseases of white blood cells (20 sources) Neutropenia due to and following chemotherapy; Translations: [Agranulocytosis secondary to cancer chemotherapy] Onset: 3 01-29-2023 Chronic Essential hypertension (20 sources) Hypertensive disorder; Translations: [Essential (primary) hypertension] Onset: 0 07-13-2020 Chronic Genitourinary symptoms and ill-defined conditions (4 sources) Urinary incontinence; Translations: [Unspecified urinary incontinence] Onset: 5 03-31-2025 Chronic Genitourinary symptoms and ill-defined conditions (3 sources) Dysuria; Translations: [Dysuria] Onset: 5 03-19-2025 Episodic Gout and other crystal arthropathies (20 sources) Gout; Translations: [Gout, unspecified] 12-08-2020 Chronic Hypertension with complications and secondary hypertension (2 sources) Hypertensive renal disease; Translations: [Hypertensive chronic kidney disease with stage 1 through stage 4 chronic kidney disease, or unspecified chronic kidney disease] 03-08-2024 Chronic Immunizations and screening for infectious disease (20 sources) Needs influenza immunization; Translations: [Encounter for immunization] 12-08-2020 Episodic Inflammation; infection of eye (except that caused by tuberculosis or sexually transmitteddisease) (16 sources) Acute conjunctivitis of bilateral eyes; Translations: [Unspecified acute conjunctivitis, bilateral] 11-23-2021 Episodic Maintenance chemotherapy; radiotherapy (1 source) Encounter for antineoplastic immunotherapy; Translations: [Encounter for antineoplastic immunotherapy] Onset: 5 Chronic Malaise and fatigue (7 sources) Asthenia; Translations: [Weakness] Onset: 5 03-15-2025 Episodic Mood disorders (1 source) Mood disorders; Translations: [Depression, unspecified depression type] Onset: 5 Multiple myeloma (20 sources) Multiple myeloma; Translations: [Multiple myeloma not having achieved remission] Onset: 0 07-19-2020 Chronic Mycoses (9 sources) Tinea cruris; Translations: [Tinea cruris] 03-16-2012 Episodic Noninfectious gastroenteritis (20 sources) Colitis; Translations: [Noninfective gastroenteritis and colitis, unspecified] 12-08-2020 Episodic Nutritional deficiencies (3 sources) Moderate protein energy malnutrition; Translations: [Moderate protein-calorie malnutrition] Onset: 5 03-31-2025 Chronic Open wounds of extremities (16 sources) Open wound of toe; Translations: [Unspecified open wound of unspecified toe(s) without damage to nail, initial encounter] 04-19-2021 Episodic Other aftercare (1 source) Under care of palliative care physician; Translations: [Encounter for palliative care] 03-23-2025 Episodic Other connective tissue disease (4 sources) Other symptoms and signs involving the musculoskeletal system; Translations: [Other musculoskeletal symptoms referable to limbs] 02-06-2023 Episodic Other diseases of kidney and ureters (2 sources) Hyperparathyroidism due to renal insufficiency; Translations: [Secondary hyperparathyroidism of renal origin] 03-08-2024 Chronic Other gastrointestinal disorders (20 sources) Irritable bowel syndrome with diarrhea; Translations: [Irritable bowel syndrome with diarrhea] 12-08-2020 Chronic Comment on above: none x3 days. Other gastrointestinal disorders (1 source) Drug-induced constipation; Translations: [Drug induced constipation] 02-25-2024 Episodic Other gastrointestinal disorders (1 source) Diarrhea due to drug; Translations: [Toxic gastroenteritis and colitis] 07-27-2024 Episodic Other hereditary and degenerative nervous system conditions (1 source) Mild cognitive impairment, so stated; Translations: [Cognitive impairment, mild, so stated] Onset: Chronic Other injuries and conditions due to external causes (18 sources) At risk for falls ; Translations: [History of falling] 12-08-2020 Episodic Other lower respiratory disease (19 sources) Cough; Translations: [Acute cough] Episodic Other lower respiratory disease (2 sources) Rib pain; Translations: [Pleurodynia] Episodic Other lower respiratory disease (6 sources) Multiple nodules of lung; Translations: [Other nonspecific abnormal finding of lung field] 05-07-2023 Episodic Other nervous system disorders (20 sources) Pain due to neoplastic disease; Translations: [Neoplasm related pain (acute) (chronic)] Onset: 0 07-13-2020 Chronic Other nervous system disorders (20 sources) Neuropathy; Translations: [Polyneuropathy, unspecified] Onset: 3 Chronic Other nervous system disorders (1 source) Polyneuropathy, unspecified; Translations: [Neuropathy] Onset: 5 Chronic Other nervous system disorders (1 source) Drug-induced polyneuropathy; 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)] Onset: 3 Chronic Other nervous system disorders (1 source) Difficulty in walking, not elsewhere classified; Translations: [Impaired ambulation] Onset: 5 Chronic Other nervous system disorders (14 sources) Numbness and tingling sensation of skin; Translations: [Anesthesia of skin] Episodic Other nervous system disorders (1 source) Anesthesia of skin; Translations: [Numbness and tingling] Onset: 5 Episodic Other nervous system disorders (1 source) Paresthesia of skin; Translations: [Numbness and tingling] Onset: 5 Episodic Other non-epithelial cancer of skin (1 source) Malignant neoplasm of skin; Translations: [Unspecified malignant neoplasm of skin, unspecified] 02-25-2024 Episodic Other non-traumatic joint disorders (3 sources) Pain in right hip joint; Translations: [Pain in right hip] 02-06-2023 Episodic Other non-traumatic joint disorders (20 sources) Pain in right knee; Translations: [Pain in joint, lower leg] 12-08-2020 Episodic Other non-traumatic joint disorders (4 sources) Hip pain; Translations: [Pain in right hip] 10-19-2024 Episodic Other nutritional; endocrine; and metabolic disorders (1 source) Decrease in appetite; Translations: [Anorexia] 03-23-2025 Episodic Other nutritional; endocrine; and metabolic disorders (1 source) Anorexia; Translations: [Poor appetite] Onset: 5 Episodic Other upper respiratory infections (20 sources) Sinusitis; Translations: [Chronic sinusitis, unspecified] Onset: 0 07-20-2020 Chronic Other upper respiratory infections (20 sources) Bacterial upper respiratory infection; Translations: [Acute upper respiratory infection, unspecified] 02-04-2022 Episodic Phlebitis; thrombophlebitis and thromboembolism (1 source) Chronic deep venous thrombosis of calf; Translations: [Chronic embolism and thrombosis of calf muscular vein, bilateral] 07-27-2024 Chronic Residual codes; unclassified (18 sources) Edema; Translations: [Edema, unspecified] 12-08-2020 Episodic Residual codes; unclassified (9 sources) Overweight; Translations: [Other specified conditions influencing health status] 04-13-2018 Episodic Residual codes; unclassified (1 source) Pain, unspecified; Translations: [Pain] Onset: Episodic Skin and subcutaneous tissue infections (9 sources) Cellulitis of right lower limb; Translations: [Cellulitis of right lower limb] 02-11-2019 Episodic Spondylosis; intervertebral disc disorders; other back problems (20 sources) Degeneration of lumbar intervertebral disc; Translations: [Other intervertebral disc degeneration, lumbar region] 12-08-2020 Chronic Sprains and strains (16 sources) Disorder of acromioclavicular joint; Translations: [Strain of unspecified muscle, fascia and tendon at shoulder and upper arm level, right arm, initial encounter] 12-08-2020 Episodic Superficial injury; contusion (10 sources) Abrasion of left upper arm, initial encounter; Translations: [Abrasion or friction burn of elbow, forearm, and wrist, without mention of infection] 05-24-2024 Episodic Thyroid disorders (20 sources) Hypothyroidism; Translations: [Hypothyroidism, unspecified] Onset: 0 07-13-2020 Chronic Unclassified (9 sources) Foot pain - The onset of the foot pain has been sudden and has been occurring for 2 weeks. The foot pain is characterized as a sharp stabbing. The pain affects the right foot. The foot pain is described as being located in the great toe. The symptoms have been associated with decreased ROM and painful ROM. Note for "Foot pain": Concerned about Gout 07-28-2023 Unclassified (2 sources) Skin changes - The onset of the skin changes has been acute. Note for "Skin changes": c/o open bed sore in buttocks. Was at [facility] 03-20-20 to 03-24-20. Having oral chemo treatments at [place]. 03-31-2020 Unclassified (9 sources) [ADDITIONAL REASON] Cough - The onset of the cough has been acute. The cough is characterized as dry. 03-31-2020 Unclassified (2 sources) [ADDITIONAL REASON] Edema - Symptoms include edema and weight gain. The edema involves both lower extremities. Onset was day(s) ago. Note for "Edema": positive DVT per Maryana yesterday in left leg and started Xarelto 03-31-2020 Unclassified (7 sources) Edema - Symptoms include edema and weight gain. The edema involves both lower extremities. Onset was day(s) ago. Note for "Edema": positive DVT per Maryana yesterday in left leg and started Xarelto 03-31-2020 Unclassified (7 sources) [ADDITIONAL REASON] Skin changes - The onset of the skin changes has been acute. Note for "Skin changes": c/o open bed sore in buttocks. Was at [facility] 03-20-20 to 03-24-20. Having oral chemo treatments at [place]. 03-31-2020 Unclassified (1 source) Other Onset: 5 Unclassified (1 source) Degeneration of intervertebral disc of lumbar region, unspecified whether pain present; Translations: [Degeneration of intervertebral disc of lumbar region, unspecified whether pain present] Onset: 5 Unclassified (1 source) Sent By Md Onset: 5 Viral infection (9 sources) Viral disease; Translations: [Viral infection, unspecified] 09-27-2014 Episodic Past or Other Problems Problem Classification Problem Date Documented Da te Episodic/Chronic Diabetes mellitus without complication (20 sources) Hyperglycemia; Translations: [Hyperglycemia, unspecified] Onset: 0 07-19-2020 Episodic E Codes: Adverse effects of medical drugs (10 sources) Other drug allergy; Translations: [Adverse effect of antineoplastic and immunosuppressive drugs, initial encounter] Onset: 3 2012 Episodic Fluid and electrolyte disorders (20 sources) Hypokalemia; Translations: [Hypokalemia] Onset: 0 Resolved: 0 07-17-2020 Episodic Other aftercare (20 sources) Post-discharge follow-up; Translations: [Encounter for follow-up examination after completed treatment for conditions other than malignant neoplasm] Onset: 0 07-19-2020 Episodic Other connective tissue disease (20 sources) History of lumbar fusion; Translations: [Arthrodesis status] Onset: 0 07-19-2020 Episodic Other fractures (20 sources) Open fracture of ilium; Translations: [Nondisplaced avulsion fracture of unspecified ilium, initial encounter for open fracture] Onset: 0 07-19-2020 Episodic Other nervous system disorders (20 sources) Acute postoperative pain; Translations: [Other acute postprocedural pain] Onset: 0 07-19-2020 Episodic Other non-traumatic joint disorders (1 source) Pain in right hip; Translations: [Pain in right hip] Onset: 5 Episodic Other nutritional; endocrine; and metabolic disorders (20 sources) Hypomagnesemia; Translations: [Hypomagnesemia] Onset: 0 Resolved: 0 07-17-2020 Chronic Pathological fracture (20 sources) Pathological fracture of pelvis; Translations: [Pathological fracture, pelvis, initial encounter for fracture] Onset: 0 07-10-2020 Episodic Phlebitis; thrombophlebitis and thromboembolism (20 sources) H/O: Deep vein thrombosis; Translations: [Personal history of other venous thrombosis and embolism] Onset: 0 07-19-2020 Episodic Residual codes; unclassified (20 sources) Insomnia; Translations: [Insomnia, unspecified] Onset: 0 07-13-2020 Episodic Residual codes; unclassified (20 sources) Confusional state; Translations: [Disorientation, unspecified] Onset: 0 07-20-2020 Episodic Spinal cord injury (20 sources) Complication of surgical procedure; Translations: [Dural tear] Onset: 0 07-19-2020 Episodic Spondylosis; intervertebral disc disorders; other back problems (20 sources) Backache; Translations: [Dorsalgia, unspecified] Onset: 0 07-13-2020 Episodic Unclassified (20 sources) Immunization - Immunizations discussed with patient/ parent: yes. Influenza immunization was given. An immunization information sheet was provided. 05-05-2023 Unclassified (9 sources) Cough - The onset of the cough has been acute and has been occurring in a persistent pattern. The cough is characterized as productive sputum. The symptoms have been associated with runny nose, while the symptoms have not been associated with fever. Note for "Cough": seen 1 week ago and treated with Levaquin. Uses Mucinex also. 03-22-2022 Unclassified (2 sources) Skin Check - Note for "Skin check": Pt bumped/scrapped his left forearm on a cabinet at home 3-4 days ago. He has a skin tear that is still bleeding. 03-14-2022 Unclassified (2 sources) [ADDITIONAL REASON] Cough - Note for "Cough": Pt was seen 01/31/22 similar symptoms and given a zpak. He does not think he full got over the infection and now is coughing more. Cough is productive. 03-14-2022 Unclassified (9 sources) Cough - The onset of the cough has been acute and has been occurring for 1 week. The cough is characterized as moist and productive sputum. The symptoms have been associated with runny nose and sore throat, while the symptoms have not been associated with fever. 01-31-2022 Unclassified (9 sources) Eye Discharge - Symptoms include eye redness, eye irritation, visual blurring and lid crusting. Symptoms are located in the left eye and the right eye. Onset was 1 day(s) ago. Associated symptoms include lid swelling, sneezing and nasal congestion. Note for "Eye discharge": Was to Dr. Clayton on Friday and was given Erythromycin Ointment to put into eyes. Redness started yesterday. Possibly allergic to Zithromycin 11-23-2021 Unclassified (9 sources) Cough - The onset of the cough has been acute and has been occurring in a persistent pattern for 1 week. The cough is characterized as moist. The symptoms have been associated with sore throat, while the symptoms have not been associated with fever. 05-28-2021 Unclassified (9 sources) Foot Problem - The injury involved the left foot (great toe nail). Note for "Foot problem": clipped toe and bled last night. 04-19-2021 Unclassified (9 sources) Knee pain - The onset of the knee pain has been sudden and has been occurring in a persistent pattern. The knee pain involves the right knee. The knee pain is described as being located in the entire knee. The symptoms have been associated with muscle swelling, joint swelling, painful ROM, decreased ROM and warmth. Note for "Knee pain": Has had Gout issues in the past. Was seen at [facility]gent [facility] in [place] November 21, 2020. Was on Indomethacin which helped. Has history of Gout flare-ups 12-08-2020 Unclassified (9 sources) Shoulder pain - The onset of the shoulder pain has been acute and has been occurring for days. The shoulder pain is described as being located in the right shoulder. The shoulder pain was preceeded by trauma (fell at home x 2). Note for "Shoulder pain": took Hydrocodo/Act 5/325 and ice for pain. Pt is doing cancer treatments. Also in [facility] 11-10 to 11-11-20 for fall in the bathroom. Tests done for head and neck injury that were normal per pt. 11-14-2020 Unclassified (9 sources) Diarrhea - The onset of the diarrhea has been variable and has been occurring for years. Note for "Diarrhea": Diarrhea is worse since on Chemotherapy. Patient has an appt with Dr. Carroll on 08/15/2020. Needs Referral letter sent to him 09-08-2020 Unclassified (9 sources) Rash - The onset of the rash has been acute and has been occurring for 1 week. The rash is characterized as red. The rash was first seen on the lower extremity (Right lower leg). It spread to the lower extremity (left upper leg started yesterday and right upper leg started this morning). There has been associated itching, while there has been no pain. Note for "Rash": Pt is unsure where he would have gotten the rash. 02-11-2019 Unclassified (9 sources) Diarrhea - The onset of the diarrhea has been sudden and has been occurring for 6 days. The stools are watery (yellow in color) and foul smelling. The symptoms have been associated with weakness (has not eaten much since diarrhea started). Note for "Diarrhea": had Surgery. Ate Tuna at Hospital and diarrhea started that evening and also had vomiting thru the night. Has had diarrhea since then. Concerned about dehydration. 04-13-2018 Unclassified (9 sources) !Patient notification of lab results - [facility]. The test(s) that you had done were/was blood work (Your uric acid was only slightly elevated at 7.1 so I don't think it's as likely that this was due to gout. See if you get relief with the prednisone. I think we should have you see an orthopedic surgeon in consultation if you are not improving or if you relapse after the prednisone is completed). You should call our office if you have any questions. 12-17-2017 Unclassified (9 sources) Knee Pain - The onset of the knee pain has been acute and has been occurring in a persistent pattern for 2 days. The knee pain is described as being located in the medial knee (right). Note for "Knee Pain": pt had similar knee pain in Aug 2017 and uric acid was elevated at 8.1 Done at [facility]. Here for exam. 12-16-2017 Unclassified (9 sources) Diarrhea - The onset of the diarrhea has been acute and has been occurring for 3 weeks. The symptoms have been associated with weakness, while the symptoms have not been associated with fever, nausea or vomiting. Note for "Diarrhea": .Pt has lost weight. Pt had been on vacation ([facility].. 12-19-2016 Unclassified (9 sources) Back Pain - Note for "Back pain": Lower back pain, has surgery scheduled May.24, preop May [address] Antonio, Need a Dr visit and MRI before that date.. 04-12-2016 Unclassified (9 sources) cough - The onset of the cough has been acute and has been occurring in a persistent pattern for weeks. The cough is characterized as productive of mucoid sputum (clear). The symptoms are aggravated by meals. Note for "cough": c/o post nasal drip. Here for exam. 04-25-2015 Unclassified (9 sources) cough - The onset of the cough has been acute and has been occurring in a persistent pattern for 3 days. The cough is characterized as productive of mucoid sputum. The symptoms have been associated with runny nose. Note for "cough": Here for exam. 09-27-2014 Unclassified (9 sources) Immunization - Influenza immunization was given. An immunization information sheet was provided. 04-30-2012 Unclassified (9 sources) Rash - The onset of the rash has been sudden and has been occurring for 1 week. The rash is characterized as red. The patient was possibly exposed while camping. The rash was first seen on the groin. It spread to the groin. There has been no associated itching. 03-16-2012 Unclassified (9 sources) Rash - The onset of the rash has been acute and has been occurring in a persistent pattern for 10 hours. The course has been constant. The rash is characterized as red. The patient was possibly exposed while other: took Amox from dentist 01-20-12. The rash was first seen on the trunk. There has been associated itching. 2012 Unclassified (7 sources) Cough - Note for "Cough": Pt was seen 01/31/22 similar symptoms and given a zpak. He does not think he full got over the infection and now is coughing more. Cough is productive. 03-14-2022 Unclassified (7 sources) [ADDITIONAL REASON] Skin Check - Note for "Skin check": Pt bumped/scrapped his left forearm on a cabinet at home 3-4 days ago. He has a skin tear that is still bleeding. 03-14-2022 Unclassified (6 sources) Knee pain - Note for "Knee pain": Pt c/o left knee pain, redness, warmth, and slight swelling. No injury. Pt said it's had to get up from a sitting position. Symptoms started yesterday. 12-24-2023 Unclassified (5 sources) Injury - The patient reports that it was accidental and happened at home. The date of the injury was on 05-23-24. The injury is described as being located in the elbow (left).The pain is described as mild. The injury happened due to a falling down. Note for "Injury": last tetanus 200505-24-2024 Unclassified (2 sources) Falls, Geriatric - The most recent fall occurred indoors and at home. Note for "Falls": pt fell twice recently at home due to weakness in legs. Decreased eating. Grief from loss of . 03-15-2025 Results Test Name Value Interpretation Reference Range Facility [facility] 04-27-2025 CNPN Normal [facility] BLOOD BANK PLACEHOLDER, ANTI BODY INTERPRETATIONon 04-26-2025 BLOOD BANK REPORT, ANTIBODY INTERPRETATION See Pathology Report Normal [facility] Comment on above: Order Comment: Speci men Type: BLOOD SPECIMENOrdering Facility: [facility] Address: [address] [place] [address] Performed By: #### P BASSAM LEALT ####CC [facility] BLOOD [place] [id number] [place] [address] [place]#### BBABINT ####[facility] LABJEREMY VILLE [id number] [place] [address] [place] CBC W Auto Differential pane l (Bld)on 04-26-2025 Anisocytosis Ql (Bld) Present Normal [facility] Comment on above: Order Comment: Speci men Type: BLOOD SPECIMENOrdering Facility: [facility] Address: [address] [place] [address] Performed By: #### 5 7021-8 ####[facility] [place] [place] [id number] [place] [address] [place] Basophils (Bld) [#/Vol] 0.27 10*3/uL High <0.11 [facility] Comment on above: Order Comment: Speci men Type: BLOOD SPECIMENOrdering Facility: [facility] Address: [address] [place] [address] Performed By: #### 5 7021-8 ####[facility] [place] [id number] [place] [address] [place] Basophils/100 WBC (Bld) 2.0 % Normal [facility] Comment on above: Order Comment: Speci men Type: BLOOD SPECIMENOrdering Facility: [facility] Address: [address] [place] [address] Performed By: #### 5 7021-8 ####[facility] [id number] [place] [address] [place] Differential cell count method Nom (Bld) Manual Normal [facility] Comment on above: Order Comment: Speci men Type: BLOOD SPECIMENOrdering Facility: [facility] Address: [address] [place] [address] Performed By: #### 5 7021-8 ####[facility] [id number] [place] [address] [place] Eosinophils (Bld) [#/Vol] 0.96 10*3/uL High <0.46 [facility] Comment on above: Order Comment: Speci men Type: BLOOD SPECIMENOrdering Facility: [facility] Address: [address] [place] [address] Performed By: #### 5 7021-8 ####[facility] [id number] [place] [address] [place] Eosinophils/100 WBC (Bld) 7.0 % Normal [facility] Comment on above: Order Comment: Speci men Type: BLOOD SPECIMENOrdering Facility: [facility] Address: [address] [place] [address] Performed By: #### 5 7021-8 ####[facility] [id number] [place] [address] [place] Erythrocyte distribution width (RBC) [Ratio] 16.8 % High 11.5-15.0 [facility] Comment on above: Order Comment: Speci men Type: BLOOD SPECIMENOrdering Facility: [facility] Address: [address] [place] [address] Performed By: #### 5 7021-8 ####[facility] [id number] [place] [address] [place] Hematocrit (Bld) [Volume fraction] 36.9 % Low 39.0-51.0 [facility] Comment on above: Order Comment: Speci men Type: BLOOD SPECIMENOrdering Facility: [facility] Address: [address] [place] [address] Performed By: #### 5 7021-8 ####[facility] [id number] [place] [address] [place] Hemoglobin (Bld) [Mass/Vol] 12.2 g/dL Low 13.0-17.0 [facility] Comment on above: Order Comment: Speci men Type: BLOOD SPECIMENOrdering Facility: [facility] Address: [address] [place] [address] Performed By: #### 5 7021-8 ####[facility] [id number] [place] [address] [place] Lymphocytes (Bld) [#/Vol] 2.32 10*3/uL Normal 1.00-4.00 [facility] Comment on above: Order Comment: Speci men Type: BLOOD SPECIMENOrdering Facility: [facility] Address: [address] [place] [address] Performed By: #### 5 7021-8 ####[facility] [id number] [place] [address] [place] Lymphocytes/100 WBC (Bld) 17.0 % Normal [facility] Comment on above: Order Comment: Speci men Type: BLOOD SPECIMENOrdering Facility: [facility] Address: [address] [place] [address] Performed By: #### 5 7021-8 ####[facility] [id number] [place] [address] [place] MCH (RBC) [Entitic mass] 29.7 pg Normal 26.0-34.0 [facility] Comment on above: Order Comment: Speci men Type: BLOOD SPECIMENOrdering Facility: [facility] Address: [address] [place] [address] Performed By: #### 5 7021-8 ####[facility] [id number] [place] [address] [place] MCHC (RBC) [Mass/Vol] 33.1 g/dL Normal 30.5-36.0 [facility] Comment on above: Order Comment: Speci men Type: BLOOD SPECIMENOrdering Facility: [facility] Address: [address] [place] [address] Performed By: #### 5 7021-8 ####[facility] [id number] [place] [address] [place] MCV (RBC) [Entitic vol] 89.8 fL Normal 80.0-100.0 [facility] Comment on above: Order Comment: Speci men Type: BLOOD SPECIMENOrdering Facility: [facility] Address: [address] [place] [address] Performed By: #### 5 7021-8 ####[facility] [id number] [place] [address] [place] Metamyelocytes/100 WBC (Bld) 1.0 % Normal [facility] Comment on above: Order Comment: Speci men Type: BLOOD SPECIMENOrdering Facility: [facility] Address: [address] [place] [address] Performed By: #### 5 7021-8 ####[facility] [id number] [place] [address] [place] Monocytes (Bld) [#/Vol] 0.82 10*3/uL Normal <0.87 [facility] Comment on above: Order Comment: Speci men Type: BLOOD SPECIMENOrdering Facility: [facility] Address: [address] [place] [address] Performed By: #### 5 7021-8 ####[facility] [id number] [address] [place] Monocytes/100 WBC (Bld) 6.0 % Normal [facility] Comment on above: Order Comment: Speci men Type: BLOOD SPECIMENOrdering Facility: [facility] Address: [address] [place] [address] Performed By: #### 5 7021-8 ####[facility] [id number] [place] [address] [place] MYELO% 3.0 % Normal [facility] Comment on above: Order Comment: Speci men Type: BLOOD SPECIMENOrdering Facility: [facility] Address: [address] [place] [address] Performed By: #### 5 7021-8 ####[facility] [id number] [place] [address] [place] Neutrophils (Bld) [#/Vol] 8.75 10*3/uL High 1.45-7.50 [facility] Comment on above: Order Comment: Speci men Type: BLOOD SPECIMENOrdering Facility: [facility] Address: [address] [place] [address] Performed By: #### 5 7021-8 ####[facility] [place] [id number] [place] [address] [place] Neutrophils/100 WBC (Bld) 64.0 % Normal [facility] Comment on above: Order Comment: Speci men Type: BLOOD SPECIMENOrdering Facility: [facility] Address: [address] [place] [address] Performed By: #### 5 7021-8 ####[facility] [place] [place] [id number] [place] [address] [place] Nucleated RBC (Bld) [#/Vol] 10*3/uL Normal <0.01 [facility] Comment on above: Order Comment: Speci men Type: BLOOD SPECIMENOrdering Facility: [facility] Address: [address] [place] [address] Performed By: #### 5 7021-8 ####[facility] [id number] [place] [address] [place] Nucleated RBC/100 WBC (Bld) [Ratio] 0.0 /100 WBC Normal [facility] Comment on above: Order Comment: Speci men Type: BLOOD SPECIMENOrdering Facility: [facility] Address: [address] [place] [address] Performed By: #### 5 7021-8 ####[facility] [id number] [place] [address] [place] Ovalocytes LM Ql (Bld) Few Normal [facility] Comment on above: Order Comment: Speci men Type: BLOOD SPECIMENOrdering Facility: [facility] Address: [address] [place] [address] Performed By: #### 5 7021-8 ####[facility] [id number] [place] [address] [place] Platelet mean volume (Bld) [Entitic vol] 9.5 fL Normal 9.0-12.7 [facility] Comment on above: Order Comment: Speci men Type: BLOOD SPECIMENOrdering Facility: [facility] Address: [address] [place] [address] Performed By: #### 5 7021-8 ####[facility] [place] [id number] [place] [address] [place] Platelets (Bld) [#/Vol] 341 10*3/uL Normal 150-400 [facility] Comment on above: Order Comment: Speci men Type: BLOOD SPECIMENOrdering Facility: [facility] Address: [address] [place] [address] Performed By: #### 5 7021-8 ####[facility] [id number] [place] [address] [place] Platelets Estimate (Bld) [#/Vol] Adequate Normal [facility] Comment on above: Order Comment: Speci men Type: BLOOD SPECIMENOrdering Facility: [facility] Address: [address] [place] [address] Performed By: #### 5 7021-8 ####[facility] [id number] [place] [address] [place] Polychromasia LM Ql (Bld) Slight Normal [facility] Comment on above: Order Comment: Speci men Type: BLOOD SPECIMENOrdering Facility: [facility] Address: [address] [place] [address] Performed By: #### 5 7021-8 ####[facility] [id number] [place] [address] [place] RBC (Bld) [#/Vol] 4.11 10*6/uL Low 4.20-6.00 [facility] Comment on above: Order Comment: Speci men Type: BLOOD SPECIMENOrdering Facility: [facility] Address: [address] [place] [address] Performed By: #### 5 7021-8 ####[facility] [id number] [place] [address] [place] RED CELL MORPH Reviewed: see result s of individual morphologies Normal [facility] Comment on above: Order Comment: Speci men Type: BLOOD SPECIMENOrdering Facility: [facility] Address: [address] [place] [address] Performed By: #### 5 7021-8 ####[facility] [id number] [place] [address] [place] WBC (Bld) [#/Vol] 13.67 10*3/uL High 3.70-11.00 [facility] Comment on above: Order Comment: Speci men Type: BLOOD SPECIMENOrdering Facility: [facility] Address: [address] [place] [address] Performed By: #### 5 7021-8 ####[facility] [id number] [place] [address] [place] WBC Left Shift Ql (Bld) Present Normal [facility] Comment on above: Order Comment: Speci men Type: BLOOD SPECIMENOrdering Facility: [facility] Address: [address] [place] [address] Performed By: #### 5 7021-8 ####[facility] [id number] [place] [address] [place] CNOVon 04-26-2025 CNOV Normal [facility] CNOVSPon 04-26-2025 CNOVSP Normal [facility] Comprehensive metabolic 2000 panelon 04-26-2025 Albumin [Mass/Vol] 3.2 g/dL Low 3.9-4.9 [facility] Comment on above: Order Comment: Speci men Type: BLOOD SPECIMENOrdering Facility: [facility] Address: [address] [place] [address] Performed By: #### 2 4323-8 ####[facility] [id number] [place] [address] [place] ALP [Catalytic activity/Vol] 87 U/L Normal 38-113 [facility] Comment on above: Order Comment: Speci men Type: BLOOD SPECIMENOrdering Facility: [facility] Address: [address] [place] [address] Performed By: #### 2 4323-8 ####[facility] [id number] [place] [address] [place] ALT [Catalytic activity/Vol] 34 U/L Normal 10-54 [facility] Comment on above: Order Comment: Speci men Type: BLOOD SPECIMENOrdering Facility: [facility] Address: [address] [place] [address] Performed By: #### 2 4323-8 ####[facility] [id number] [place] [address] [place] Anion gap [Moles/Vol] 12 mmol/L Normal 8-15 [facility] Comment on above: Order Comment: Speci men Type: BLOOD SPECIMENOrdering Facility: [facility] Address: [address] [place] [address] Performed By: #### 2 4323-8 ####[facility] [id number] [place] [address] [place] AST [Catalytic activity/Vol] 20 U/L Normal 14-40 [facility] Comment on above: Order Comment: Speci men Type: BLOOD SPECIMENOrdering Facility: [facility] Address: [address] [place] [address] Performed By: #### 2 4323-8 ####[facility] [id number] [place] [address] [place] Bilirubin [Mass/Vol] 0.4 mg/dL Normal 0.2-1.3 [facility] Comment on above: Order Comment: Speci men Type: BLOOD SPECIMENOrdering Facility: [facility] Address: [address] [place] [address] Performed By: #### 2 4323-8 ####[facility] [place] [id number] [place] [address] [place] Calcium [Mass/Vol] 8.4 mg/dL Low 8.5-10.2 [facility] Comment on above: Order Comment: Speci men Type: BLOOD SPECIMENOrdering Facility: [facility] Address: [address] [place] [address] Performed By: #### 2 4323-8 ####[facility] [id number] [place] [address] [place] Chloride [Moles/Vol] 105 mmol/L Normal 98-107 [facility] Comment on above: Order Comment: Speci men Type: BLOOD SPECIMENOrdering Facility: [facility] Address: [address] [place] [address] Performed By: #### 2 4323-8 ####[facility] [id number] [place] [address] [place] CO2 [Moles/Vol] 24 mmol/L Normal 22-30 [facility] Comment on above: Order Comment: Speci men Type: BLOOD SPECIMENOrdering Facility: [facility] Address: [address] [place] [address] Performed By: #### 2 4323-8 ####[facility] [id number] [place] [address] [place] Creatinine [Mass/Vol] 1.18 mg/dL Normal 0.73-1.22 [facility] Comment on above: Order Comment: Jelenai men Type: BLOOD SPECIMENOrdering Facility: [facility] Address: [address] [place] [address] Performed By: #### 2 4323-8 ####[facility] [id number] [place] [address] [place] eGFRcr SerPlBld CKD-EPI 2020 60 mL/min/1.73m??? Normal >=60 [facility] Comment on above: Order Comment: Jelenai men Type: BLOOD SPECIMENOrdering Facility: [facility] Address: [address] [place] [address] Result Comment: Ling mated Glomerular Filtration Rate (eGFR) is calculated using the 2020 CKD-EPI creatinine equation. This equation utilizes serum creatinine, sex, and age as parameters. The creatinine assay has traceable calibration to isotope dilution-mass spectrometry. Refer to KDIGO guidelines for clinical interpretation. In patients with unstable renal function, e.g. those with acute kidney injury, the eGFR may not accurately reflect actual GFR. Performed By: #### 2 4323-8 ####[facility] [id number] [place] [address] [place] Glucose [Mass/Vol] 100 mg/dL High 74-99 [facility] Comment on above: Order Comment: Jelenai men Type: BLOOD SPECIMENOrdering Facility: [facility] Address: [address] [place] [address] Result Comment: The [place] Diabetes [employer] (ADA) provides guidance for cutoff values for fasting glucose and random glucose. The ADA defines fasting as no caloric intake for at least 8 hours. Fasting plasma glucose results between 100 to 125 mg/dL indicate increased risk for diabetes (prediabetes).Fasting plasma glucose results greater than or equal to 126 mg/dL meet the criteria for diagnosis of diabetes. In the absence of unequivocal hyperglycemia, results should be confirmed by repeat testing. In a patient with classic symptoms of hyperglycemia or hyperglycemic crisis, random plasma glucose results greater than or equal to 200 mg/dL meet the criteria for diagnosis of diabetes.Reference: Standards of Medical Care in Diabetes 2016, [place] [employer]. Diabetes Care. 2016.39(Suppl 1). Performed By: #### 2 4323-8 ####[facility] [id number] [place] [address] [place] Potassium [Moles/Vol] 3.8 mmol/L Normal 3.7-5.1 [facility] Comment on above: Order Comment: Speci men Type: BLOOD SPECIMENOrdering Facility: [facility] Address: [address] [place] [address] Performed By: #### 2 4323-8 ####[facility] [place] [id number] [place] [address] [place] Protein [Mass/Vol] 7.1 g/dL Normal 6.3-8.0 [facility] Comment on above: Order Comment: Speci men Type: BLOOD SPECIMENOrdering Facility: [facility] Address: [address] [place] [address] Performed By: #### 2 4323-8 ####[facility] [id number] [place] [address] [place] Sodium [Moles/Vol] 141 mmol/L Normal 136-144 [facility] Comment on above: Order Comment: Speci men Type: BLOOD SPECIMENOrdering Facility: [facility] Address: [address] [place] [address] Performed By: #### 2 4323-8 ####[facility] [id number] [place] [address] [place] Urea nitrogen [Mass/Vol] 30 mg/dL High 9-24 [facility] Comment on above: Order Comment: Katie young Type: BLOOD SPECIMENOrdering Facility: [facility] Address: [address] [place] [address] Performed By: #### 2 4323-8 ####[facility] [id number] [place] [address] [place] HBV core Ab Ser Qlon 025 HBV core Ab Ql (S) Negative Normal Negative [facility] Comment on above: Order Comment: Specquang men Type: BLOOD SPECIMENOrdering Facility: [facility] Address: [address] [place] [address] Result Comment: No e vidence of current or past infection with Hepatitis B virus. Should recent infection be suspected, repeat testing may be considered 3-4 weeks after this draw. Performed By: #### 5 195-3, 49479-6, 81217-4 ####[facility] [id number] [address] HBV surface Ab Ql (S)on HBV surface Ab Qn (S) <8.00 Normal [facility] Comment on above: Order Comment: Katie young Type: BLOOD SPECIMENOrdering Facility: [facility] Address: [address] [place] [address] Result Comment: <8 m IU/mL: No serological evidence of immunity to Hepatitis B Virus.>/= 8 to <12 mIU/mL: No serological evidence of immunity to Hepatitis B Virus.>/= 12 mIU/mL: Consistent with serological evidence of immunity to Hepatitis B Virus. Performed By: #### 5 195-3, 93613-6, 38677-8 ####[facility] [id number] [place] HBV surface Ab Ser Qlon HBV surface Ab Ql (S) Negative Normal [facility] Comment on above: Order Comment: Katie hector Type: BLOOD SPECIMENOrdering Facility: [facility] Address: [address] [place] [address] Result Comment: No s erological evidence of immunity to Hepatitis B Virus. Performed By: #### 5 195-3, 24356-2, 43137-8 ####[facility] [id number] [place] [address] [place] HBV surface Ag Ser Qlon 10-0 HBV surface Ag Ql (S) Negative Normal Negative [facility] Comment on above: Order Comment: Speci men Type: BLOOD SPECIMENOrdering Facility: [facility] Address: [address] [place] [address] Performed By: #### 5 195-3, 18090-9, 90205-1 ####[facility] [id number] [place] HCV Ab Ser Qlon 04-26-2025 HCV Ab Ql (S) Negative Normal Negative [facility] Comment on above: Order Comment: Speci men Type: BLOOD SPECIMENOrdering Facility: [facility] Address: [address] [place] [address] Result Comment: The result suggests no evidence of infection with Hepatitis C virus. Should recent infection be suspected, repeat testing may be considered 4-6 weeks after this draw. Performed By: #### 1 6128-1 ####[facility] [id number] [place] [address] [place] IMMUNOFIXATION SCREEN, SERUM on 04-26-2025 INTERPRETATION (MPA) Normal [facility] Comment on above: Order Comment: Speci men Type: BLOOD SPECIMENOrdering Facility: [facility] Address: [address] [place] [address] Result Comment: Atyp ical restricted bands are present in the IgG and lambda regions. Consistent with IgG lambda monoclonal gammopathy.Poorly defined region of restricted mobility in IgG and kappa lanes. Pattern is less well defined or fainter than typically seen in monoclonal gammopathy. This could represent either an atypical presentation of polyclonal immunoglobulins or the presence of a low level IgG kappa monoclonal gammopathy. If clinically indicated, urine monoclonal protein analysis and serum free light chain measurements are recommended to evaluate further for monoclonal gammopathy. Clinical correlation is necessary. Performed By: #### I FESC ####[facility] LABCLIA [id number] [address], [facility]95 [facility] MPA RESULT M protein is present. Abnormal No M p rotein is identified. [facility] Comment on above: Order Comment: Speci men Type: BLOOD SPECIMENOrdering Facility: [facility] Address: [address] [place] [address] Performed By: #### I FESC ####[facility] LABCLIA [id number] [address], [facility] STAFF REVIEW (MPA) Reviewed by Michael Suarez MD [facility] Comment on above: Order Comment: Speci men Type: BLOOD SPECIMENOrdering Facility: [facility] Address: [address] [place] [address] Performed By: #### I FES ####[facility] LABCLIA [id number] [address], [facility]95 [place] IMMUNOGLOBULINS,IGG,IGA,IGMo n 04-26-2025 IgA [Mass/Vol] 305 mg/dL Normal 70-400 [facility] Comment on above: Order Comment: Speci men Type: BLOOD SPECIMENOrdering Facility: [facility] Address: [address] [place] [address] Performed By: #### S ERIMM ####[facility] LABCLIA [id number] [address] [place] [address] [place] IgG [Mass/Vol] 1763 mg/dL High 700-1600 [facility] Comment on above: Order Comment: Speci men Type: BLOOD SPECIMENOrdering Facility: [facility] Address: [address] [place] [address] Performed By: #### S ERIMM ####[facility] LABCLIA [id number] [address], [facility]95 [place] IgM [Mass/Vol] 101 mg/dL Normal 40-230 [facility] Comment on above: Order Comment: Speci men Type: BLOOD SPECIMENOrdering Facility: [facility] Address: [address] [place] [address] Performed By: #### S HARPREETM ####[facility] LABCLIA [id number] [place] [address] [place] KAPPA/FLAHERTY,FREE,SERon 2024 Immunoglobulin light chains.kappa.free (S) [Mass/Vol] 70.1 mg/L High 3.3-19.4 [facility] Comment on above: Order Comment: Speci men Type: BLOOD SPECIMENOrdering Facility: [facility] Address: [address] [place] [address] Result Comment: Rare ly, increased serum free light chains levels may not be detected or accurately quantified due to prozone phenomenon or in high viscosity samples using this immunoturbidimetric assay. Correlation with other laboratory results and clinical findings is recommended.The [place] Free Light Chain was performed using the Binding Site Optilite immunoturbidimetric method. Result obtained with different assay methods or kits cannot be used interchangeably. Performed By: #### K LFRS ####[facility] LABIA [id number] [place] [address] [place] Immunoglobulin light chains.kappa/Immunog lobulin light chains.lambda (S) [Mass ratio] 0.55 Normal 0.26-1.65 [facility] Comment on above: Order Comment: Speci men Type: BLOOD SPECIMENOrdering Facility: [facility] Address: [address] [place] [address] Performed By: #### K LFRS ####[facility] LABCLIA [id number] [place] [address] [place] Immunoglobulin light chains.lambda.free [Mass/Vol] 127.3 mg/L High 5.7-26.3 [facility] Comment on above: Order Comment: Speci men Type: BLOOD SPECIMENOrdering Facility: [facility] Address: [address] [place] [address] Result Comment: Rare ly, increased serum free light chains levels may not be detected or accurately quantified due to prozone phenomenon or in high viscosity samples using this immunoturbidimetric assay. Correlation with other laboratory results and clinical findings is recommended.The [place] Free Light Chain was performed using the Binding Site Optilite immunoturbidimetric method. Result obtained with different assay methods or kits cannot be used interchangeably. Performed By: #### K LFRS ####[facility] LABCLIA [id number] [place] [address] [place] Prot SerPl-mCncon 04-26-2025 Protein [Mass/Vol] 6.4 g/dL Normal 6.3-8.0 [facility] Comment on above: Order Comment: Speci men Type: BLOOD SPECIMENOrdering Facility: [facility] Address: [address] [place] [address] Performed By: #### 2 885-2 ####[facility] LABIA [id number] [address] [place] TYPE AND SCR, PRE-DARATUMUMA Bon 04-26-2025 ABO A Normal [facility] Comment on above: Order Comment: Speci men Type: BLOOD SPECIMENOrdering Facility: [facility] Address: [address] [place] [address] Performed By: #### P RDARA, DAGT ####CC [facility] BLOOD BANKCLIA [id number] [address] [place]#### BBABINT ####[facility] LABCLIA [id number] [place] [address] [place] DAGT, POLYSPECIFIC AHG Negative Normal [facility] Comment on above: Order Comment: Speci men Type: BLOOD SPECIMENOrdering Facility: [facility] Address: [address] [place] [address] Result Comment: Jihan ected result: Previously reported as Invalid on 04/26/2025 at 4:08 PM EDT. Performed By: #### P MEL, DAGT ####[facility] BLOOD BANKCLIA [id number] [place] [address] [place]#### BBABINT ####[facility] LABCLIA [id number] [place] [id number] [place] Rh Nom (Bld) Positive Normal [facility] Comment on above: Order Comment: Speci men Type: BLOOD SPECIMENOrdering Facility: [facility] Address: [address] [place] [address] Performed By: #### P MEL, DAGT ####[facility] BLOOD BANKCLIA [id number] [place] [address] [place]#### BBABINT ####[facility] LABCLIA [id number] [place] [address] [place] TYPE AND SCREEN EXPIRATION 04/29/2025 23:59 Normal [facility] Comment on above: Order Comment: Speci men Type: BLOOD SPECIMENOrdering Facility: [facility] Address: [address] [place] [address] Performed By: #### P MEL, DAGT ####[facility] BLOOD BANKCLIA [id number] [place] [address] [place]#### BBABINT ####[facility] LABCLIA [id number] [place] [id number] [place] CNPNon 04-14-2025 CNPN Normal [facility] CNPNon 04-11-2025 CNPN Normal [facility] CNPNon 04-08-2025 CNPN Normal [facility] Basic metabolic 2000 panelon 04-07-2025 Anion gap [Moles/Vol] 14 mmol/L Normal 8-15 [facility] Comment on above: Order Comment: Speci men Type: BLOOD SPECIMENOrdering Facility: [facility] Address: [address] [place] [address] [place] [address] Performed By: #### 2 4321-2 ####[facility] LABCLIA [id number] [address] [address] [place] Calcium [Mass/Vol] 8.6 mg/dL Normal 8.5-10.2 [facility] Comment on above: Order Comment: Speci men Type: BLOOD SPECIMENOrdering Facility: [facility] Address: [address] [place], [place] [address] Performed By: #### 2 4321-2 ####[facility] LABCLIA [id number] [place] [id number] [place] Chloride [Moles/Vol] 104 mmol/L Normal 98-107 [facility] Comment on above: Order Comment: Speci men Type: BLOOD SPECIMENOrdering Facility: [facility] Address: [address] [place] [address] Performed By: #### 2 4321-2 ####[facility] LABCLIA [id number] [place] [id number] [place] CO2 [Moles/Vol] 20 mmol/L Low 22-30 [facility] Comment on above: Order Comment: Speci men Type: BLOOD SPECIMENOrdering Facility: [facility] Address: [address] [place], [place] [address] Performed By: #### 2 4321-2 ####[facility] LABCLIA [id number] [address] [address] [place] Creatinine [Mass/Vol] 1.35 mg/dL High 0.73-1.22 [facility] Comment on above: Order Comment: Speci men Type: BLOOD SPECIMENOrdering Facility: [facility] Address: [address] [place], [place] [address] Performed By: #### 2 4321-2 ####[facility] LABCLIA [id number] [address] [address] [place] eGFRcr SerPlBld CKD-EPI 2020 51 mL/min/1.73m??? Low >=60 [facility] Comment on above: Order Comment: Katie young Type: BLOOD SPECIMENOrdering Facility: [facility] Address: [address] [place] [address] Result Comment: Ling mated Glomerular Filtration Rate (eGFR) is calculated using the 2020 CKD-EPI creatinine equation. This equation utilizes serum creatinine, sex, and age as parameters. The creatinine assay has traceable calibration to isotope dilution-mass spectrometry. Refer to KDIGO guidelines for clinical interpretation. In patients with unstable renal function, e.g. those with acute kidney injury, the eGFR may not accurately reflect actual GFR. Performed By: #### 2 4321-2 ####[facility] LABIA [id number] [place] [address] [place] Glucose [Mass/Vol] 136 mg/dL High 74-99 [facility] Comment on above: Order Comment: Katie young Type: BLOOD SPECIMENOrdering Facility: [facility] Address: [address] [place] [address] Result Comment: The [place] Diabetes Association (ADA) provides guidance for cutoff values for fasting glucose and random glucose. The ADA defines fasting as no caloric intake for at least 8 hours. Fasting plasma glucose results between 100 to 125 mg/dL indicate increased risk for diabetes (prediabetes).Fasting plasma glucose results greater than or equal to 126 mg/dL meet the criteria for diagnosis of diabetes. In the absence of unequivocal hyperglycemia, results should be confirmed by repeat testing. In a patient with classic symptoms of hyperglycemia or hyperglycemic crisis, random plasma glucose results greater than or equal to 200 mg/dL meet the criteria for diagnosis of diabetes.Reference: Standards of Medical Care in Diabetes 2016, [place] [employer] Association. Diabetes Care. 2016.39(Suppl 1). Performed By: #### 2 4321-2 ####[facility] LABIA [id number] [place] [address] [place] Potassium [Moles/Vol] 4.0 mmol/L Normal 3.7-5.1 [facility] Comment on above: Order Comment: Speci men Type: BLOOD SPECIMENOrdering Facility: [facility] Address: [address] [place] [address] Performed By: #### 2 4321-2 ####[facility] LABCLIA [id number] [address] [address] [place] Sodium [Moles/Vol] 138 mmol/L Normal 136-144 [facility] Comment on above: Order Comment: Speci men Type: BLOOD SPECIMENOrdering Facility: [facility] Address: [address] [place] [address] Performed By: #### 2 4321-2 ####[facility] LABIA [id number] [place] [address] [place] Urea nitrogen [Mass/Vol] 37 mg/dL High 9-24 [facility] Comment on above: Order Comment: Speci men Type: BLOOD SPECIMENOrdering Facility: [facility] Address: [address] [place] [address] Performed By: #### 2 4321-2 ####[facility] LABIA [id number] [place] [id number] [place] CASE MANAGEMon 04-07-2025 CASE MANAGEM Normal [facility] CBC W Auto Differential pane l (Bld)on 04-07-2025 Basophils (Bld) [#/Vol] 0.08 10*3/uL Normal <0.11 [facility] Comment on above: Order Comment: Speci men Type: BLOOD SPECIMENOrdering Facility: [facility] Address: [address] [place] [address] Performed By: #### 5 7021-8 ####[facility] LABIA [id number] [place] [id number] [place] Basophils/100 WBC (Bld) 1.2 % Normal [facility] Comment on above: Order Comment: Speci men Type: BLOOD SPECIMENOrdering Facility: [facility] Address: [address] [place] [address] Performed By: #### 5 7021-8 ####[facility] LABCLIA [id number] [address], [place] [address] [place] Differential cell count method Nom (Bld) Auto Normal [facility] Comment on above: Order Comment: Speci men Type: BLOOD SPECIMENOrdering Facility: [facility] Address: [address] [place] [address] Performed By: #### 5 7021-8 ####[facility] LABCLIA [id number] [address], [place] [address] [place] Eosinophils (Bld) [#/Vol] 0.03 10*3/uL Normal <0.46 [facility] Comment on above: Order Comment: Speci men Type: BLOOD SPECIMENOrdering Facility: [facility] Address: [address] [place] [address] Performed By: #### 5 7021-8 ####[facility] LABCLIA [id number] [address], [place] [address] [place] Eosinophils/100 WBC (Bld) 0.5 % Normal [facility] Comment on above: Order Comment: Speci men Type: BLOOD SPECIMENOrdering Facility: [facility] Address: [address] [place] [address] Performed By: #### 5 7021-8 ####[facility] LABCLIA [id number] [place] [address] [place] Erythrocyte distribution width (RBC) [Ratio] 15.9 % High 11.5-15.0 [facility] Comment on above: Order Comment: Speci men Type: BLOOD SPECIMENOrdering Facility: [facility] Address: [address] [place] [address] Performed By: #### 5 7021-8 ####[facility] LABCLIA [id number] [place] [address] [place] Hematocrit (Bld) [Volume fraction] 33.8 % Low 39.0-51.0 [facility] Comment on above: Order Comment: Speci men Type: BLOOD SPECIMENOrdering Facility: [facility] Address: [address] [place] [address] Performed By: #### 5 7021-8 ####[facility] LABCLIA [id number] [address] [address] [place] Hemoglobin (Bld) [Mass/Vol] 11.1 g/dL Low 13.0-17.0 [facility] Comment on above: Order Comment: Speci men Type: BLOOD SPECIMENOrdering Facility: [facility] Address: [address] [place] [address] Performed By: #### 5 7021-8 ####[facility] LABCLIA [id number] [place] [address] [place] Immature granulocytes (Bld) [#/Vol] 0.04 10*3/uL Normal <0.10 [facility] Comment on above: Order Comment: Speci men Type: BLOOD SPECIMENOrdering Facility: [facility] Address: [address] [place] [address] Performed By: #### 5 7021-8 ####[facility] LABCLIA [id number] [place] [address] [place] Immature granulocytes/100 WBC (Bld) 0.6 % Normal [facility] Comment on above: Order Comment: Speci men Type: BLOOD SPECIMENOrdering Facility: [facility] Address: [address] [place] [address] Performed By: #### 5 7021-8 ####[facility] LABCLIA [id number] [place] [address] [place] Lymphocytes (Bld) [#/Vol] 2.12 10*3/uL Normal 1.00-4.00 [facility] Comment on above: Order Comment: Speci men Type: BLOOD SPECIMENOrdering Facility: [facility] Address: [address] [place] [address] Performed By: #### 5 7021-8 ####[facility] LABIA [id number] [place] [address] [place] Lymphocytes/100 WBC (Bld) 32.5 % Normal [facility] Comment on above: Order Comment: Speci men Type: BLOOD SPECIMENOrdering Facility: [facility] Address: [address] [place] [address] Performed By: #### 5 7021-8 ####[facility] LABIA [id number] [place] [address] [place] MCH (RBC) [Entitic mass] 29.8 pg Normal 26.0-34.0 [facility] Comment on above: Order Comment: Speci men Type: BLOOD SPECIMENOrdering Facility: [facility] Address: [address] [place] [address] Performed By: #### 5 7021-8 ####[facility] LABIA [id number] [place] [address] [place] MCHC (RBC) [Mass/Vol] 32.8 g/dL Normal 30.5-36.0 [facility] Comment on above: Order Comment: Speci men Type: BLOOD SPECIMENOrdering Facility: [facility] Address: [address] [place] [address] Performed By: #### 5 7021-8 ####[facility] LABIA [id number] [place] [address] [place] MCV (RBC) [Entitic vol] 90.9 fL Normal 80.0-100.0 [facility] Comment on above: Order Comment: Speci men Type: BLOOD SPECIMENOrdering Facility: [facility] Address: [address] [place] [address] Performed By: #### 5 7021-8 ####[facility] LABIA [id number] [place] [address] [place] Monocytes (Bld) [#/Vol] 0.75 10*3/uL Normal <0.87 [facility] Comment on above: Order Comment: Speci men Type: BLOOD SPECIMENOrdering Facility: [facility] Address: [address] [place] [address] Performed By: #### 5 7021-8 ####[facility] LABCLIA [id number] [facility] [address] [place] Monocytes/100 WBC (Bld) 11.5 % Normal [facility] Comment on above: Order Comment: Speci men Type: BLOOD SPECIMENOrdering Facility: [facility] Address: [address] [place] [address] Performed By: #### 5 7021-8 ####[facility] LABCLIA [id number] [place] [address] [place] Neutrophils (Bld) [#/Vol] 3.51 10*3/uL Normal 1.45-7.50 [facility] Comment on above: Order Comment: Speci men Type: BLOOD SPECIMENOrdering Facility: [facility] Address: [address] [place] [address] Performed By: #### 5 7021-8 ####[facility] LABCLIA [id number] [place] [address] [place] Neutrophils/100 WBC (Bld) 53.7 % Normal [facility] Comment on above: Order Comment: Speci men Type: BLOOD SPECIMENOrdering Facility: [facility] Address: [address] [place] [address] Performed By: #### 5 7021-8 ####[facility] LABCLIA [id number] [place] [address] [place] Nucleated RBC (Bld) [#/Vol] 10*3/uL Normal <0.01 [facility] Comment on above: Order Comment: Speci men Type: BLOOD SPECIMENOrdering Facility: [facility] Address: [address] [place], [place] [address] Performed By: #### 5 7021-8 ####[facility] LABCLIA [id number] [address], [place] [address] [place] Nucleated RBC/100 WBC (Bld) [Ratio] 0.0 /100 WBC Normal [facility] Comment on above: Order Comment: Speci men Type: BLOOD SPECIMENOrdering Facility: [facility] Address: [address] [place] [address] Performed By: #### 5 7021-8 ####[facility] LABCLIA [id number] [address], [place] [address] [place] Platelet mean volume (Bld) [Entitic vol] 9.7 fL Normal 9.0-12.7 [facility] Comment on above: Order Comment: Speci men Type: BLOOD SPECIMENOrdering Facility: [facility] Address: [address] [place] [address] Performed By: #### 5 7021-8 ####[facility] LABCLIA [id number] [address], [facility]95 [place] Platelets (Bld) [#/Vol] 299 10*3/uL Normal 150-400 [facility] Comment on above: Order Comment: Speci men Type: BLOOD SPECIMENOrdering Facility: [facility] Address: [address] [place] [address] Performed By: #### 5 7021-8 ####[facility] LABCLIA [id number] [facility] [address] [place] [address] [place] RBC (Bld) [#/Vol] 3.72 10*6/uL Low 4.20-6.00 [facility] Comment on above: Order Comment: Speci men Type: BLOOD SPECIMENOrdering Facility: [facility] Address: [address] [place] [address] Performed By: #### 5 7021-8 ####[facility] LABCLIA [id number] [place] [id number] [place] WBC (Bld) [#/Vol] 6.53 10*3/uL Normal 3.70-11.00 [facility] Comment on above: Order Comment: Speci men Type: BLOOD SPECIMENOrdering Facility: [facility] Address: [address] [place] [address] Performed By: #### 5 7021-8 ####[facility] LABCLIA [id number] [place] [address] [place] CNDSon 04-07-2025 CNDS Normal [facility] SOCIAL WORKon 04-07-2025 SOCIAL WORK Normal [facility] THERAPY NTon 04-07-2025 THERAPY NT Normal [facility] XR CHEST 1V FRONTAL PORTon 0 04-07-2025 XR CHEST 1V FRONTAL PORT Normal [facility] Basic metabolic 2000 panelon 04-06-2025 Anion gap [Moles/Vol] 13 mmol/L Normal 8-15 [facility] Comment on above: Order Comment: Speci men Type: BLOOD SPECIMENOrdering Facility: [facility] Address: [address] [place] [address] Performed By: #### 2 4321-2 ####[facility] LABCLIA [id number] [place] [id number] [place] Calcium [Mass/Vol] 8.4 mg/dL Low 8.5-10.2 [facility] Comment on above: Order Comment: Speci men Type: BLOOD SPECIMENOrdering Facility: [facility] Address: [address] [place] [address] Performed By: #### 2 4321-2 ####[facility] LABCLIA [id number] [place] [id number] [place] Chloride [Moles/Vol] 102 mmol/L Normal 98-107 [facility] Comment on above: Order Comment: Speci men Type: BLOOD SPECIMENOrdering Facility: [facility] Address: [address] [place] [address] Performed By: #### 2 4321-2 ####[facility] LABCLIA [id number] [facility] [address] [address] [place] CO2 [Moles/Vol] 20 mmol/L Low 22-30 [facility] Comment on above: Order Comment: Speci men Type: BLOOD SPECIMENOrdering Facility: [facility] Address: [address] [place] [address] Performed By: #### 2 4321-2 ####[facility] LABCLIA [id number] [place] [id number] [place] Creatinine [Mass/Vol] 1.34 mg/dL High 0.73-1.22 [facility] Comment on above: Order Comment: Speci men Type: BLOOD SPECIMENOrdering Facility: [facility] Address: [address] [place] [address] Performed By: #### 2 4321-2 ####[facility] LABCLIA [id number] [place] [address] [place] eGFRcr SerPlBld CKD-EPI 2020 51 mL/min/1.73m??? Low >=60 [facility] Comment on above: Order Comment: Speci men Type: BLOOD SPECIMENOrdering Facility: [facility] Address: [address] [place] [address] Result Comment: Ling mated Glomerular Filtration Rate (eGFR) is calculated using the 2020 CKD-EPI creatinine equation. This equation utilizes serum creatinine, sex, and age as parameters. The creatinine assay has traceable calibration to isotope dilution-mass spectrometry. Refer to KDIGO guidelines for clinical interpretation. In patients with unstable renal function, e.g. those with acute kidney injury, the eGFR may not accurately reflect actual GFR. Performed By: #### 2 4321-2 ####[facility] LABCLIA [id number] [facility] [address] [place] [address] [place] Glucose [Mass/Vol] 158 mg/dL High 74-99 [facility] Comment on above: Order Comment: Speci men Type: BLOOD SPECIMENOrdering Facility: [facility] Address: [address] [place], [place] [address] Result Comment: The [place] Diabetes [employer] (ADA) provides guidance for cutoff values for fasting glucose and random glucose. The ADA defines fasting as no caloric intake for at least 8 hours. Fasting plasma glucose results between 100 to 125 mg/dL indicate increased risk for diabetes (prediabetes).Fasting plasma glucose results greater than or equal to 126 mg/dL meet the criteria for diagnosis of diabetes. In the absence of unequivocal hyperglycemia, results should be confirmed by repeat testing. In a patient with classic symptoms of hyperglycemia or hyperglycemic crisis, random plasma glucose results greater than or equal to 200 mg/dL meet the criteria for diagnosis of diabetes.Reference: Standards of Medical Care in Diabetes 2016, [place] [employer]. Diabetes Care. 2016.39(Suppl 1). Performed By: #### 2 4321-2 ####[facility] LABCLIA [id number] [place] [address] [place] Potassium [Moles/Vol] 4.7 mmol/L Normal 3.7-5.1 [facility] Comment on above: Order Comment: Speci men Type: BLOOD SPECIMENOrdering Facility: [facility] Address: [address] [place], [place] [address] Performed By: #### 2 4321-2 ####[facility] LABCLIA [id number] [place] [id number] [place] Sodium [Moles/Vol] 135 mmol/L Low 136-144 [facility] Comment on above: Order Comment: Speci men Type: BLOOD SPECIMENOrdering Facility: [facility] Address: [address] [place] [address] Performed By: #### 2 4321-2 ####[facility] LABCLIA [id number] [address] [address] [place] Urea nitrogen [Mass/Vol] 32 mg/dL High 9-24 [facility] Comment on above: Order Comment: Speci men Type: BLOOD SPECIMENOrdering Facility: [facility] Address: [address] [place] [address] Performed By: #### 2 4321-2 ####[facility] LABCLIA [id number] [place] [address] [place] CASE MANAGEMon 04-06-2025 CASE MANAGEM Normal [facility] CBC W Auto Differential pane l (Bld)on 04-06-2025 Basophils (Bld) [#/Vol] 0.06 10*3/uL Normal <0.11 [facility] Comment on above: Order Comment: Speci men Type: BLOOD SPECIMENOrdering Facility: [facility] Address: [address] [place] [address] Performed By: #### 5 7021-8 ####[facility] LABIA [id number] [address], [place] [address] [place] Basophils/100 WBC (Bld) 1.0 % Normal [facility] Comment on above: Order Comment: Speci men Type: BLOOD SPECIMENOrdering Facility: [facility] Address: [address] [place] [address] Performed By: #### 5 7021-8 ####[facility] LABIA [id number] [place] [address] [place] Differential cell count method Nom (Bld) Auto Normal [facility] Comment on above: Order Comment: Speci men Type: BLOOD SPECIMENOrdering Facility: [facility] Address: [address] [place] [address] Performed By: #### 5 7021-8 ####[facility] LABCLIA [id number] [place] [id number] [place] Eosinophils (Bld) [#/Vol] 10*3/uL Normal <0.46 [facility] Comment on above: Order Comment: Speci men Type: BLOOD SPECIMENOrdering Facility: [facility] Address: [address] [place] [address] Performed By: #### 5 7021-8 ####[facility] LABCLIA [id number] [place] [address] [place] Eosinophils/100 WBC (Bld) 0.2 % Normal [facility] Comment on above: Order Comment: Speci men Type: BLOOD SPECIMENOrdering Facility: [facility] Address: [address] [place] [address] Performed By: #### 5 7021-8 ####[facility] LABCLIA [id number] [place] [address] [place] Erythrocyte distribution width (RBC) [Ratio] 15.9 % High 11.5-15.0 [facility] Comment on above: Order Comment: Speci men Type: BLOOD SPECIMENOrdering Facility: [facility] Address: [address] [place] [address] Performed By: #### 5 7021-8 ####[facility] LABIA [id number] [place] [address] [place] Hematocrit (Bld) [Volume fraction] 33.9 % Low 39.0-51.0 [facility] Comment on above: Order Comment: Speci men Type: BLOOD SPECIMENOrdering Facility: [facility] Address: [address] [place] [address] Performed By: #### 5 7021-8 ####[facility] LABCLIA [id number] [place] [address] [place] Hemoglobin (Bld) [Mass/Vol] 11.2 g/dL Low 13.0-17.0 [facility] Comment on above: Order Comment: Speci men Type: BLOOD SPECIMENOrdering Facility: [facility] Address: [address] [place] [address] Performed By: #### 5 7021-8 ####[facility] LABCLIA [id number] [place] [address] [place] Immature granulocytes (Bld) [#/Vol] 0.07 10*3/uL Normal <0.10 [facility] Comment on above: Order Comment: Speci men Type: BLOOD SPECIMENOrdering Facility: [facility] Address: [address] [place] [address] Performed By: #### 5 7021-8 ####[facility] LABCLIA [id number] [place] [id number] [place] Immature granulocytes/100 WBC (Bld) 1.2 % Normal [facility] Comment on above: Order Comment: Speci men Type: BLOOD SPECIMENOrdering Facility: [facility] Address: [address] [place] [address] Performed By: #### 5 7021-8 ####[facility] LABIA [id number] [place] [address] [place] Lymphocytes (Bld) [#/Vol] 1.08 10*3/uL Normal 1.00-4.00 [facility] Comment on above: Order Comment: Speci men Type: BLOOD SPECIMENOrdering Facility: [facility] Address: [address] [place] [address] Performed By: #### 5 7021-8 ####[facility] LABCLIA [id number] [place] [address] [place] Lymphocytes/100 WBC (Bld) 18.2 % Normal [facility] Comment on above: Order Comment: Speci men Type: BLOOD SPECIMENOrdering Facility: [facility] Address: [address] [place] [address] Performed By: #### 5 7021-8 ####[facility] LABCLIA [id number] [place] [id number] [place] MCH (RBC) [Entitic mass] 29.9 pg Normal 26.0-34.0 [facility] Comment on above: Order Comment: Speci men Type: BLOOD SPECIMENOrdering Facility: [facility] Address: [address] [place] [address] Performed By: #### 5 7021-8 ####[facility] LABCLIA [id number] [place] [address] [place] MCHC (RBC) [Mass/Vol] 33.0 g/dL Normal 30.5-36.0 [facility] Comment on above: Order Comment: Speci men Type: BLOOD SPECIMENOrdering Facility: [facility] Address: [address] [place] [address] Performed By: #### 5 7021-8 ####[facility] LABCLIA [id number] [address], [place] [address] [place] MCV (RBC) [Entitic vol] 90.4 fL Normal 80.0-100.0 [facility] Comment on above: Order Comment: Speci men Type: BLOOD SPECIMENOrdering Facility: [facility] Address: [address] [place] [address] Performed By: #### 5 7021-8 ####[facility] LABIA [id number] [place] [address] [place] Monocytes (Bld) [#/Vol] 0.58 10*3/uL Normal <0.87 [facility] Comment on above: Order Comment: Speci men Type: BLOOD SPECIMENOrdering Facility: [facility] Address: [address] [place] [address] Performed By: #### 5 7021-8 ####[facility] LABCLIA [id number] [place] [address] [place] Monocytes/100 WBC (Bld) 9.8 % Normal [facility] Comment on above: Order Comment: Speci men Type: BLOOD SPECIMENOrdering Facility: [facility] Address: [address] [place] [address] Performed By: #### 5 7021-8 ####[facility] LABCLIA [id number] [place] [address] [place] Neutrophils (Bld) [#/Vol] 4.13 10*3/uL Normal 1.45-7.50 [facility] Comment on above: Order Comment: Speci men Type: BLOOD SPECIMENOrdering Facility: [facility] Address: [address] [place] [address] Performed By: #### 5 7021-8 ####[facility] LABCLIA [id number] [place] [address] [place] Neutrophils/100 WBC (Bld) 69.6 % Normal [facility] Comment on above: Order Comment: Speci men Type: BLOOD SPECIMENOrdering Facility: [facility] Address: [address] [place] [address] Performed By: #### 5 7021-8 ####[facility] LABCLIA [id number] [place] [address] [place] Nucleated RBC (Bld) [#/Vol] 10*3/uL Normal <0.01 [facility] Comment on above: Order Comment: Speci men Type: BLOOD SPECIMENOrdering Facility: [facility] Address: [address] [place] [address] Performed By: #### 5 7021-8 ####[facility] LABIA [id number] [place] [address] [place] Nucleated RBC/100 WBC (Bld) [Ratio] 0.0 /100 WBC Normal [facility] Comment on above: Order Comment: Speci men Type: BLOOD SPECIMENOrdering Facility: [facility] Address: [address] [place] [address] Performed By: #### 5 7021-8 ####[facility] LABCLIA [id number] [place] [address] [place] Platelet mean volume (Bld) [Entitic vol] 9.6 fL Normal 9.0-12.7 [facility] Comment on above: Order Comment: Speci men Type: BLOOD SPECIMENOrdering Facility: [facility] Address: [address] [place] [address] Performed By: #### 5 7021-8 ####[facility] LABCLIA [id number] [place] [address] [place] Platelets (Bld) [#/Vol] 286 10*3/uL Normal 150-400 [facility] Comment on above: Order Comment: Speci men Type: BLOOD SPECIMENOrdering Facility: [facility] Address: [address] [place] [address] Performed By: #### 5 7021-8 ####[facility] LABIA [id number] [place] [address] [place] RBC (Bld) [#/Vol] 3.75 10*6/uL Low 4.20-6.00 [facility] Comment on above: Order Comment: Speci men Type: BLOOD SPECIMENOrdering Facility: [facility] Address: [address] [place] [address] Performed By: #### 5 7021-8 ####[facility] LABIA [id number] [place] [address] [place] WBC (Bld) [#/Vol] 5.93 10*3/uL Normal 3.70-11.00 [facility] Comment on above: Order Comment: Speci men Type: BLOOD SPECIMENOrdering Facility: [facility] Address: [address] [place] [address] Performed By: #### 5 7021-8 ####[facility] LABIA [id number] [place] [id number] [place] NURSING PROGon 04-06-2025 NURSING PROG Normal [facility] Resp path 12b Pnl Spec OMID+p robeon 04-06-2025 Respiratory pathogens DNA and RNA 12b panel OMID+probe (Unsp spec) Abnormal [facility] Comment on above: Performed By: #### 6 0566-7 ####[facility] LABIA [id number] [address] [place] [address] [place] THERAPY NTon 04-06-2025 THERAPY NT Normal [facility] Basic metabolic 2000 panelon 04-05-2025 Anion gap [Moles/Vol] 17 mmol/L High 8-15 [facility] Comment on above: Order Comment: Speci men Type: BLOOD SPECIMENOrdering Facility: [facility] Address: [address] [place], [place] [address] Performed By: #### 2 4321-2 ####[facility] LABCLIA [id number] [address] [place] [address] [place] Calcium [Mass/Vol] 8.9 mg/dL Normal 8.5-10.2 [facility] Comment on above: Order Comment: Speci men Type: BLOOD SPECIMENOrdering Facility: [facility] Address: [address] [place], [place] [address] Performed By: #### 2 4321-2 ####[facility] LABCLIA [id number] [address] [address] [place] Chloride [Moles/Vol] 101 mmol/L Normal 98-107 [facility] Comment on above: Order Comment: Speci men Type: BLOOD SPECIMENOrdering Facility: [facility] Address: [address] [place] [address] Performed By: #### 2 4321-2 ####[facility] LABCLIA [id number] [address] [address] [place] CO2 [Moles/Vol] 15 mmol/L Low 22-30 [facility] Comment on above: Order Comment: Speci men Type: BLOOD SPECIMENOrdering Facility: [facility] Address: [address] [place] [address] Performed By: #### 2 4321-2 ####[facility] LABCLIA [id number] [address] [place] [address] [place] Creatinine [Mass/Vol] 1.27 mg/dL High 0.73-1.22 [facility] Comment on above: Order Comment: Katie young Type: BLOOD SPECIMENOrdering Facility: [facility] Address: [address] [place] [address] Performed By: #### 2 4321-2 ####[facility] LABCLIA [id number] [place] [address] [place] eGFRcr SerPlBld CKD-EPI 2020 55 mL/min/1.73m??? Low >=60 [facility] Comment on above: Order Comment: Specquang young Type: BLOOD SPECIMENOrdering Facility: [facility] Address: [address] [place] [address] Result Comment: Ling mated Glomerular Filtration Rate (eGFR) is calculated using the 2020 CKD-EPI creatinine equation. This equation utilizes serum creatinine, sex, and age as parameters. The creatinine assay has traceable calibration to isotope dilution-mass spectrometry. Refer to KDIGO guidelines for clinical interpretation. In patients with unstable renal function, e.g. those with acute kidney injury, the eGFR may not accurately reflect actual GFR. Performed By: #### 2 4321-2 ####[facility] LABCLIA [id number] [place] [address] [place] Glucose [Mass/Vol] 116 mg/dL High 74-99 [facility] Comment on above: Order Comment: Katie young Type: BLOOD SPECIMENOrdering Facility: [facility] Address: [address] [place] [address] Result Comment: The [place] Diabetes [employer] (ADA) provides guidance for cutoff values for fasting glucose and random glucose. The ADA defines fasting as no caloric intake for at least 8 hours. Fasting plasma glucose results between 100 to 125 mg/dL indicate increased risk for diabetes (prediabetes).Fasting plasma glucose results greater than or equal to 126 mg/dL meet the criteria for diagnosis of diabetes. In the absence of unequivocal hyperglycemia, results should be confirmed by repeat testing. In a patient with classic symptoms of hyperglycemia or hyperglycemic crisis, random plasma glucose results greater than or equal to 200 mg/dL meet the criteria for diagnosis of diabetes.Reference: Standards of Medical Care in Diabetes 2016, [place] [employer]. Diabetes Care. 2016.39(Suppl 1). Performed By: #### 2 4321-2 ####[facility] LABIA [id number] [place] [address] [place] Potassium [Moles/Vol] 4.8 mmol/L Normal 3.7-5.1 [facility] Comment on above: Order Comment: Speci men Type: BLOOD SPECIMENOrdering Facility: [facility] Address: [address] [place] [address] Performed By: #### 2 4321-2 ####[facility] LABIA [id number] [place] [address] [place] Sodium [Moles/Vol] 133 mmol/L Low 136-144 [facility] Comment on above: Order Comment: Speci men Type: BLOOD SPECIMENOrdering Facility: [facility] Address: [address] [place] [address] Performed By: #### 2 4321-2 ####[facility] LABIA [id number] [place] [address] [place] Urea nitrogen [Mass/Vol] 25 mg/dL High 9-24 [facility] Comment on above: Order Comment: Speci men Type: BLOOD SPECIMENOrdering Facility: [facility] Address: [address] [place] [address] Performed By: #### 2 4321-2 ####[facility] LABIA [id number] [place] [id number] [place] CASE MANAGEMon 04-05-2025 CASE MANAGEM Normal [facility] CBC W Auto Differential pane l (Bld)on 04-05-2025 Basophils (Bld) [#/Vol] 0.12 10*3/uL High <0.11 [facility] Comment on above: Order Comment: Speci men Type: BLOOD SPECIMENOrdering Facility: [facility] Address: [address] [place] [address] Performed By: #### 5 7021-8 ####[facility] LABCLIA [id number] [facility] [address] [place] [address] [place] Basophils/100 WBC (Bld) 1.8 % Normal [facility] Comment on above: Order Comment: Speci men Type: BLOOD SPECIMENOrdering Facility: [facility] Address: [address] [place] [address] Performed By: #### 5 7021-8 ####[facility] LABCLIA [id number] [address], [place] [address] [place] Differential cell count method Nom (Bld) Auto Normal [facility] Comment on above: Order Comment: Speci men Type: BLOOD SPECIMENOrdering Facility: [facility] Address: [address] [place] [address] Performed By: #### 5 7021-8 ####[facility] LABCLIA [id number] [address], [place] [address] [place] Eosinophils (Bld) [#/Vol] 0.04 10*3/uL Normal <0.46 [facility] Comment on above: Order Comment: Speci men Type: BLOOD SPECIMENOrdering Facility: [facility] Address: [address] [place] [address] Performed By: #### 5 7021-8 ####[facility] LABCLIA [id number] [address], [place] [address] [place] Eosinophils/100 WBC (Bld) 0.6 % Normal [facility] Comment on above: Order Comment: Speci men Type: BLOOD SPECIMENOrdering Facility: [facility] Address: [address] [place] [address] Performed By: #### 5 7021-8 ####[facility] LABCLIA [id number] [address], [facility] [place] Erythrocyte distribution width (RBC) [Ratio] 15.9 % High 11.5-15.0 [facility] Comment on above: Order Comment: Speci men Type: BLOOD SPECIMENOrdering Facility: [facility] Address: [address] [place] [address] Performed By: #### 5 7021-8 ####[facility] LABCLIA [id number] [place] [address] [place] Hematocrit (Bld) [Volume fraction] 35.0 % Low 39.0-51.0 [facility] Comment on above: Order Comment: Speci men Type: BLOOD SPECIMENOrdering Facility: [facility] Address: [address] [place] [address] Performed By: #### 5 7021-8 ####[facility] LABIA [id number] [place] [address] [place] Hemoglobin (Bld) [Mass/Vol] 12.1 g/dL Low 13.0-17.0 [facility] Comment on above: Order Comment: Speci men Type: BLOOD SPECIMENOrdering Facility: [facility] Address: [address] [place] [address] Performed By: #### 5 7021-8 ####[facility] LABIA [id number] [place] [address] [place] Immature granulocytes (Bld) [#/Vol] 0.03 10*3/uL Normal <0.10 [facility] Comment on above: Order Comment: Speci men Type: BLOOD SPECIMENOrdering Facility: [facility] Address: [address] [place] [address] Performed By: #### 5 7021-8 ####[facility] LABCLIA [id number] [place] [address] [place] Immature granulocytes/100 WBC (Bld) 0.5 % Normal [facility] Comment on above: Order Comment: Speci men Type: BLOOD SPECIMENOrdering Facility: [facility] Address: [address] [place] [address] Performed By: #### 5 7021-8 ####[facility] LABCLIA [id number] [place] [address] [place] Lymphocytes (Bld) [#/Vol] 1.88 10*3/uL Normal 1.00-4.00 [facility] Comment on above: Order Comment: Speci men Type: BLOOD SPECIMENOrdering Facility: [facility] Address: [address] [place] [address] Performed By: #### 5 7021-8 ####[facility] LABIA [id number] [place] [address] [place] Lymphocytes/100 WBC (Bld) 28.8 % Normal [facility] Comment on above: Order Comment: Speci men Type: BLOOD SPECIMENOrdering Facility: [facility] Address: [address] [place] [address] Performed By: #### 5 7021-8 ####[facility] LABIA [id number] [place] [address] [place] MCH (RBC) [Entitic mass] 30.3 pg Normal 26.0-34.0 [facility] Comment on above: Order Comment: Speci men Type: BLOOD SPECIMENOrdering Facility: [facility] Address: [address] [place] [address] Performed By: #### 5 7021-8 ####[facility] LABIA [id number] [place] [address] [place] MCHC (RBC) [Mass/Vol] 34.6 g/dL Normal 30.5-36.0 [facility] Comment on above: Order Comment: Speci men Type: BLOOD SPECIMENOrdering Facility: [facility] Address: [address] [place] [address] Performed By: #### 5 7021-8 ####[facility] LABCLIA [id number] [place] [id number] [place] MCV (RBC) [Entitic vol] 87.5 fL Normal 80.0-100.0 [facility] Comment on above: Order Comment: Speci men Type: BLOOD SPECIMENOrdering Facility: [facility] Address: [address] [place] [address] Performed By: #### 5 7021-8 ####[facility] LABCLIA [id number] [address] [place] [address] [place] Monocytes (Bld) [#/Vol] 1.51 10*3/uL High <0.87 [facility] Comment on above: Order Comment: Speci men Type: BLOOD SPECIMENOrdering Facility: [facility] Address: [address] [place] [address] Performed By: #### 5 7021-8 ####[facility] LABCLIA [id number] [address], [place] [address] [place] Monocytes/100 WBC (Bld) 23.1 % Normal [facility] Comment on above: Order Comment: Speci men Type: BLOOD SPECIMENOrdering Facility: [facility] Address: [address] [place] [address] Performed By: #### 5 7021-8 ####[facility] LABCLIA [id number] [address], [place] [address] [place] Neutrophils (Bld) [#/Vol] 2.95 10*3/uL Normal 1.45-7.50 [facility] Comment on above: Order Comment: Speci men Type: BLOOD SPECIMENOrdering Facility: [facility] Address: [address] [place] [address] Performed By: #### 5 7021-8 ####[facility] LABCLIA [id number] [address] [address], [facility]95 [place] Neutrophils/100 WBC (Bld) 45.2 % Normal [facility] Comment on above: Order Comment: Speci men Type: BLOOD SPECIMENOrdering Facility: [facility] Address: [address] [place] [address] Performed By: #### 5 7021-8 ####[facility] LABCLIA [id number] [address] [place] [address] [place] Nucleated RBC (Bld) [#/Vol] 10*3/uL Normal <0.01 [facility] Comment on above: Order Comment: Speci men Type: BLOOD SPECIMENOrdering Facility: [facility] Address: [address] [place] [address] Performed By: #### 5 7021-8 ####[facility] LABCLIA [id number] [address], [place] [address] [place] Nucleated RBC/100 WBC (Bld) [Ratio] 0.0 /100 WBC Normal [facility] Comment on above: Order Comment: Speci men Type: BLOOD SPECIMENOrdering Facility: [facility] Address: [address] [place] [address] Performed By: #### 5 7021-8 ####[facility] LABIA [id number] [address], [place] [address] [place] Platelet mean volume (Bld) [Entitic vol] 9.5 fL Normal 9.0-12.7 [facility] Comment on above: Order Comment: Speci men Type: BLOOD SPECIMENOrdering Facility: [facility] Address: [address] [place] [address] Performed By: #### 5 7021-8 ####[facility] LABIA [id number] [place] [address] [place] Platelets (Bld) [#/Vol] 284 10*3/uL Normal 150-400 [facility] Comment on above: Order Comment: Speci men Type: BLOOD SPECIMENOrdering Facility: [facility] Address: [address] [place] [address] Performed By: #### 5 7021-8 ####[facility] LABCLIA [id number] [address] [place] [address] [place] RBC (Bld) [#/Vol] 4.00 10*6/uL Low 4.20-6.00 [facility] Comment on above: Order Comment: Speci men Type: BLOOD SPECIMENOrdering Facility: [facility] Address: [address] [place] [address] Performed By: #### 5 7021-8 ####[facility] LABCLIA [id number] [address] [address] [place] WBC (Bld) [#/Vol] 6.53 10*3/uL Normal 3.70-11.00 [facility] Comment on above: Order Comment: Speci men Type: BLOOD SPECIMENOrdering Facility: [facility] Address: [address] [place] [address] Performed By: #### 5 7021-8 ####[facility] LABCLIA [id number] [place] [id number] [place] NUTRITIONon 04-05-2025 NUTRITION Normal [facility] THERAPY NTon 04-05-2025 THERAPY NT Normal [facility] THERAPY NT Normal [facility] Basic metabolic 2000 panelon 04-04-2025 Anion gap [Moles/Vol] 14 mmol/L Normal 8-15 [facility] Comment on above: Order Comment: Speci men Type: BLOOD SPECIMENOrdering Facility: [facility] Address: [address] [place] [address] Performed By: #### 2 4321-2 ####[facility] LABCLIA [id number] [place] [id number] [place] Calcium [Mass/Vol] 8.6 mg/dL Normal 8.5-10.2 [facility] Comment on above: Order Comment: Speci men Type: BLOOD SPECIMENOrdering Facility: [facility] Address: [address] [place], [place] [address] Performed By: #### 2 4321-2 ####[facility] LABCLIA [id number] [place] [id number] [place] Chloride [Moles/Vol] 100 mmol/L Normal 98-107 [facility] Comment on above: Order Comment: Speci men Type: BLOOD SPECIMENOrdering Facility: [facility] Address: [address] [place] [address] Performed By: #### 2 4321-2 ####[facility] LABCLIA [id number] [place] [id number] [place] CO2 [Moles/Vol] 21 mmol/L Low 22-30 [facility] Comment on above: Order Comment: Speci men Type: BLOOD SPECIMENOrdering Facility: [facility] Address: [address] [place] [address] Performed By: #### 2 4321-2 ####[facility] LABCLIA [id number] [place] [address] [place] Creatinine [Mass/Vol] 1.34 mg/dL High 0.73-1.22 [facility] Comment on above: Order Comment: Speci men Type: BLOOD SPECIMENOrdering Facility: [facility] Address: [address] [place] [address] Performed By: #### 2 4321-2 ####[facility] LABCLIA [id number] [place] [address] [place] eGFRcr SerPlBld CKD-EPI 2020 51 mL/min/1.73m??? Low >=60 [facility] Comment on above: Order Comment: Speci men Type: BLOOD SPECIMENOrdering Facility: [facility] Address: [address] [place] [address] Result Comment: Ling mated Glomerular Filtration Rate (eGFR) is calculated using the 2020 CKD-EPI creatinine equation. This equation utilizes serum creatinine, sex, and age as parameters. The creatinine assay has traceable calibration to isotope dilution-mass spectrometry. Refer to KDIGO guidelines for clinical interpretation. In patients with unstable renal function, e.g. those with acute kidney injury, the eGFR may not accurately reflect actual GFR. Performed By: #### 2 4321-2 ####[facility] LABCLIA [id number] [place] [id number] [place] Glucose [Mass/Vol] 114 mg/dL High 74-99 [facility] Comment on above: Order Comment: Speci men Type: BLOOD SPECIMENOrdering Facility: [facility] Address: [address] [place] [address] Result Comment: The [place] Diabetes [employer] (ADA) provides guidance for cutoff values for fasting glucose and random glucose. The ADA defines fasting as no caloric intake for at least 8 hours. Fasting plasma glucose results between 100 to 125 mg/dL indicate increased risk for diabetes (prediabetes).Fasting plasma glucose results greater than or equal to 126 mg/dL meet the criteria for diagnosis of diabetes. In the absence of unequivocal hyperglycemia, results should be confirmed by repeat testing. In a patient with classic symptoms of hyperglycemia or hyperglycemic crisis, random plasma glucose results greater than or equal to 200 mg/dL meet the criteria for diagnosis of diabetes.Reference: Standards of Medical Care in Diabetes 2016, [place] [employer]. Diabetes Care. 2016.39(Suppl 1). Performed By: #### 2 4321-2 ####[facility] LABCLIA [id number] [place] [address] [place] Potassium [Moles/Vol] 4.1 mmol/L Normal 3.7-5.1 [facility] Comment on above: Order Comment: Speci men Type: BLOOD SPECIMENOrdering Facility: [facility] Address: [address] [place] [address] Performed By: #### 2 4321-2 ####[facility] LABIA [id number] [place] [id number] [place] Sodium [Moles/Vol] 135 mmol/L Low 136-144 [facility] Comment on above: Order Comment: Speci men Type: BLOOD SPECIMENOrdering Facility: [facility] Address: [address] [place] [address] Performed By: #### 2 4321-2 ####[facility] LABIA [id number] [place] [id number] [place] Urea nitrogen [Mass/Vol] 24 mg/dL Normal 9-24 [facility] Comment on above: Order Comment: Speci men Type: BLOOD SPECIMENOrdering Facility: [facility] Address: [address] [place] [address] Performed By: #### 2 4321-2 ####[facility] LABCLIA [id number] [place] [address] [place] CASE MANAGEMon 04-04-2025 CASE MANAGEM Normal [facility] CBC W Auto Differential pane l (Bld)on 04-04-2025 Basophils (Bld) [#/Vol] 0.11 10*3/uL High <0.11 [facility] Comment on above: Order Comment: Speci men Type: BLOOD SPECIMENOrdering Facility: [facility] Address: [address] [place] [address] Performed By: #### 5 7021-8 ####[facility] LABCLIA [id number] [place] [address] [place] Basophils/100 WBC (Bld) 1.7 % Normal [facility] Comment on above: Order Comment: Speci men Type: BLOOD SPECIMENOrdering Facility: [facility] Address: [address] [place] [address] Performed By: #### 5 7021-8 ####[facility] LABCLIA [id number] [place] [address] [place] Differential cell count method Nom (Bld) Auto Normal [facility] Comment on above: Order Comment: Speci men Type: BLOOD SPECIMENOrdering Facility: [facility] Address: [address] [place] [address] Performed By: #### 5 7021-8 ####[facility] LABCLIA [id number] [place] [address] [place] Eosinophils (Bld) [#/Vol] 0.03 10*3/uL Normal <0.46 [facility] Comment on above: Order Comment: Speci men Type: BLOOD SPECIMENOrdering Facility: [facility] Address: [address] [place] [address] Performed By: #### 5 7021-8 ####[facility] LABIA [id number] [place] [address] [place] Eosinophils/100 WBC (Bld) 0.5 % Normal [facility] Comment on above: Order Comment: Speci men Type: BLOOD SPECIMENOrdering Facility: [facility] Address: [address] [place] [address] Performed By: #### 5 7021-8 ####[facility] LABIA [id number] [place] [address] [place] Erythrocyte distribution width (RBC) [Ratio] 15.9 % High 11.5-15.0 [facility] Comment on above: Order Comment: Speci men Type: BLOOD SPECIMENOrdering Facility: [facility] Address: [address] [place] [address] Performed By: #### 5 7021-8 ####[facility] LABIA [id number] [place] [address] [place] Hematocrit (Bld) [Volume fraction] 34.8 % Low 39.0-51.0 [facility] Comment on above: Order Comment: Speci men Type: BLOOD SPECIMENOrdering Facility: [facility] Address: [address] [place] [address] Performed By: #### 5 7021-8 ####[facility] LABIA [id number] [place] [id number] [place] Hemoglobin (Bld) [Mass/Vol] 11.2 g/dL Low 13.0-17.0 [facility] Comment on above: Order Comment: Speci men Type: BLOOD SPECIMENOrdering Facility: [facility] Address: [address] [place] [address] Performed By: #### 5 7021-8 ####[facility] LABCLIA [id number] [place] [address] [place] Immature granulocytes (Bld) [#/Vol] 0.03 10*3/uL Normal <0.10 [facility] Comment on above: Order Comment: Speci men Type: BLOOD SPECIMENOrdering Facility: [facility] Address: [address] [place] [address] Performed By: #### 5 7021-8 ####[facility] LABCLIA [id number] [place] [address] [place] Immature granulocytes/100 WBC (Bld) 0.5 % Normal [facility] Comment on above: Order Comment: Speci men Type: BLOOD SPECIMENOrdering Facility: [facility] Address: [address] [place] [address] Performed By: #### 5 7021-8 ####[facility] LABCLIA [id number] [place] [address] [place] Lymphocytes (Bld) [#/Vol] 1.67 10*3/uL Normal 1.00-4.00 [facility] Comment on above: Order Comment: Speci men Type: BLOOD SPECIMENOrdering Facility: [facility] Address: [address] [place] [address] Performed By: #### 5 7021-8 ####[facility] LABCLIA [id number] [place] [address] [place] Lymphocytes/100 WBC (Bld) 26.1 % Normal [facility] Comment on above: Order Comment: Speci men Type: BLOOD SPECIMENOrdering Facility: [facility] Address: [address] [place] [address] Performed By: #### 5 7021-8 ####[facility] LABCLIA [id number] [place] [id number] [place] MCH (RBC) [Entitic mass] 29.7 pg Normal 26.0-34.0 [facility] Comment on above: Order Comment: Speci men Type: BLOOD SPECIMENOrdering Facility: [facility] Address: [address] [place] [address] Performed By: #### 5 7021-8 ####[facility] LABIA [id number] [address] [place] [address] [place] MCHC (RBC) [Mass/Vol] 32.2 g/dL Normal 30.5-36.0 [facility] Comment on above: Order Comment: Speci men Type: BLOOD SPECIMENOrdering Facility: [facility] Address: [address] [place] [address] Performed By: #### 5 7021-8 ####[facility] [id number] [address], [place] [address] [place] MCV (RBC) [Entitic vol] 92.3 fL Normal 80.0-100.0 [facility] Comment on above: Order Comment: Speci men Type: BLOOD SPECIMENOrdering Facility: [facility] Address: [address] [place] [address] Performed By: #### 5 7021-8 ####[facility] LABIA [id number] [place] [address] [place] Monocytes (Bld) [#/Vol] 1.63 10*3/uL High <0.87 [facility] Comment on above: Order Comment: Speci men Type: BLOOD SPECIMENOrdering Facility: [facility] Address: [address] [place] [address] Performed By: #### 5 7021-8 ####[facility] LABIA [id number] [place] [id number] [place] Monocytes/100 WBC (Bld) 25.4 % Normal [facility] Comment on above: Order Comment: Speci men Type: BLOOD SPECIMENOrdering Facility: [facility] Address: [address] [place] [address] Performed By: #### 5 7021-8 ####[facility] LABCLIA [id number] [facility] [place] [address] [place] Neutrophils (Bld) [#/Vol] 2.94 10*3/uL Normal 1.45-7.50 [facility] Comment on above: Order Comment: Speci men Type: BLOOD SPECIMENOrdering Facility: [facility] Address: [address] [place] [address] Performed By: #### 5 7021-8 ####[facility] LABCLIA [id number] [place] [address] [place] Neutrophils/100 WBC (Bld) 45.8 % Normal [facility] Comment on above: Order Comment: Speci men Type: BLOOD SPECIMENOrdering Facility: [facility] Address: [address] [place] [address] Performed By: #### 5 7021-8 ####[facility] LABCLIA [id number] [place] [address] [place] Nucleated RBC (Bld) [#/Vol] 10*3/uL Normal <0.01 [facility] Comment on above: Order Comment: Speci men Type: BLOOD SPECIMENOrdering Facility: [facility] Address: [address] [place] [address] Performed By: #### 5 7021-8 ####[facility] LABCLIA [id number] [facility] [place] [address] [place] Nucleated RBC/100 WBC (Bld) [Ratio] 0.0 /100 WBC Normal [facility] Comment on above: Order Comment: Speci men Type: BLOOD SPECIMENOrdering Facility: [facility] Address: [address] [place] [address] Performed By: #### 5 7021-8 ####[facility] LABCLIA [id number] [place] [address] [place] Platelet mean volume (Bld) [Entitic vol] 9.6 fL Normal 9.0-12.7 [facility] Comment on above: Order Comment: Speci men Type: BLOOD SPECIMENOrdering Facility: [facility] Address: [address] [place] [address] Performed By: #### 5 7021-8 ####[facility] LABCLIA [id number] [address] [address] [place] Platelets (Bld) [#/Vol] 314 10*3/uL Normal 150-400 [facility] Comment on above: Order Comment: Speci men Type: BLOOD SPECIMENOrdering Facility: [facility] Address: [address] [place] [address] Performed By: #### 5 7021-8 ####[facility] LABCLIA [id number] [address] [address] [place] RBC (Bld) [#/Vol] 3.77 10*6/uL Low 4.20-6.00 [facility] Comment on above: Order Comment: Speci men Type: BLOOD SPECIMENOrdering Facility: [facility] Address: [address] [place] [address] Performed By: #### 5 7021-8 ####[facility] LABCLIA [id number] [address] [address] [place] WBC (Bld) [#/Vol] 6.41 10*3/uL Normal 3.70-11.00 [facility] Comment on above: Order Comment: Speci men Type: BLOOD SPECIMENOrdering Facility: [facility] Address: [address] [place] [address] Performed By: #### 5 7021-8 ####[facility] LABCLIA [id number] [address] [address] [place] SOCIAL WORKon 04-04-2025 SOCIAL WORK Normal [facility] THERAPY NTon 04-04-2025 THERAPY NT Normal [facility] THERAPY NT Normal [facility] Basic metabolic 2000 panelon 04-03-2025 Anion gap [Moles/Vol] 13 mmol/L Normal 8-15 [facility] Comment on above: Order Comment: Speci men Type: BLOOD SPECIMENOrdering Facility: [facility] Address: [address] [place] [address] Performed By: #### 2 4321-2 ####[facility] LABCLIA [id number] [facility] [place] [id number] [place] Calcium [Mass/Vol] 8.6 mg/dL Normal 8.5-10.2 [facility] Comment on above: Order Comment: Speci men Type: BLOOD SPECIMENOrdering Facility: [facility] Address: [address] [place] [address] Performed By: #### 2 4321-2 ####[facility] LABCLIA [id number] [place] [address] [place] Chloride [Moles/Vol] 102 mmol/L Normal 98-107 [facility] Comment on above: Order Comment: Speci men Type: BLOOD SPECIMENOrdering Facility: [facility] Address: [address] [place] [address] Performed By: #### 2 4321-2 ####[facility] LABCLIA [id number] [place] [id number] [place] CO2 [Moles/Vol] 19 mmol/L Low 22-30 [facility] Comment on above: Order Comment: Speci men Type: BLOOD SPECIMENOrdering Facility: [facility] Address: [address] [place] [address] Performed By: #### 2 4321-2 ####[facility] LABCLIA [id number] [place] [id number] [place] Creatinine [Mass/Vol] 1.24 mg/dL High 0.73-1.22 [facility] Comment on above: Order Comment: Speci men Type: BLOOD SPECIMENOrdering Facility: [facility] Address: [address] [place] [address] Performed By: #### 2 4321-2 ####[facility] LABCLIA [id number] [place] [address] [place] eGFRcr SerPlBld CKD-EPI 2020 56 mL/min/1.73m??? Low >=60 [facility] Comment on above: Order Comment: Katie young Type: BLOOD SPECIMENOrdering Facility: [facility] Address: [address] [place] [address] Result Comment: Ling mated Glomerular Filtration Rate (eGFR) is calculated using the 2020 CKD-EPI creatinine equation. This equation utilizes serum creatinine, sex, and age as parameters. The creatinine assay has traceable calibration to isotope dilution-mass spectrometry. Refer to KDIGO guidelines for clinical interpretation. In patients with unstable renal function, e.g. those with acute kidney injury, the eGFR may not accurately reflect actual GFR. Performed By: #### 2 4321-2 ####[facility] LABCLIA [id number] [place] [address] [place] Glucose [Mass/Vol] 115 mg/dL High 74-99 [facility] Comment on above: Order Comment: Katie young Type: BLOOD SPECIMENOrdering Facility: [facility] Address: [address] [place] [address] Result Comment: The [place] Diabetes Association (ADA) provides guidance for cutoff values for fasting glucose and random glucose. The ADA defines fasting as no caloric intake for at least 8 hours. Fasting plasma glucose results between 100 to 125 mg/dL indicate increased risk for diabetes (prediabetes).Fasting plasma glucose results greater than or equal to 126 mg/dL meet the criteria for diagnosis of diabetes. In the absence of unequivocal hyperglycemia, results should be confirmed by repeat testing. In a patient with classic symptoms of hyperglycemia or hyperglycemic crisis, random plasma glucose results greater than or equal to 200 mg/dL meet the criteria for diagnosis of diabetes.Reference: Standards of Medical Care in Diabetes 2016, [place] [employer]. Diabetes Care. 2016.39(Suppl 1). Performed By: #### 2 4321-2 ####[facility] LABCLIA [id number] [place] [address] [place] Potassium [Moles/Vol] 4.2 mmol/L Normal 3.7-5.1 [facility] Comment on above: Order Comment: Speci men Type: BLOOD SPECIMENOrdering Facility: [facility] Address: [address] [place] [address] Performed By: #### 2 4321-2 ####[facility] LABIA [id number] [place] [address] [place] Sodium [Moles/Vol] 134 mmol/L Low 136-144 [facility] Comment on above: Order Comment: Speci men Type: BLOOD SPECIMENOrdering Facility: [facility] Address: [address] [place] [address] Performed By: #### 2 4321-2 ####[facility] LABIA [id number] [place] [address] [place] Urea nitrogen [Mass/Vol] 22 mg/dL Normal 9-24 [facility] Comment on above: Order Comment: Speci men Type: BLOOD SPECIMENOrdering Facility: [facility] Address: [address] [place] [address] Performed By: #### 2 4321-2 ####[facility] LABIA [id number] [place] [address] [place] CBC W Auto Differential pane l (Bld)on 04-03-2025 Basophils (Bld) [#/Vol] 0.10 10*3/uL Normal <0.11 [facility] Comment on above: Order Comment: Speci men Type: BLOOD SPECIMENOrdering Facility: [facility] Address: [address] [place] [address] Performed By: #### 5 7021-8 ####[facility] LABIA [id number] [place] [address] [place] Basophils/100 WBC (Bld) 1.4 % Normal [facility] Comment on above: Order Comment: Speci men Type: BLOOD SPECIMENOrdering Facility: [facility] Address: [address] [place] [address] Performed By: #### 5 7021-8 ####[facility] LABCLIA [id number] [place] [address] [place] Differential cell count method Nom (Bld) Auto Normal [facility] Comment on above: Order Comment: Speci men Type: BLOOD SPECIMENOrdering Facility: [facility] Address: [address] [place] [address] Performed By: #### 5 7021-8 ####[facility] LABCLIA [id number] [place] [address] [place] Eosinophils (Bld) [#/Vol] 0.07 10*3/uL Normal <0.46 [facility] Comment on above: Order Comment: Speci men Type: BLOOD SPECIMENOrdering Facility: [facility] Address: [address] [place] [address] Performed By: #### 5 7021-8 ####[facility] LABCLIA [id number] [place] [address] [place] Eosinophils/100 WBC (Bld) 1.0 % Normal [facility] Comment on above: Order Comment: Speci men Type: BLOOD SPECIMENOrdering Facility: [facility] Address: [address] [place] [address] Performed By: #### 5 7021-8 ####[facility] LABCLIA [id number] [place] [address] [place] Erythrocyte distribution width (RBC) [Ratio] 15.9 % High 11.5-15.0 [facility] Comment on above: Order Comment: Speci men Type: BLOOD SPECIMENOrdering Facility: [facility] Address: [address] [place] [address] Performed By: #### 5 7021-8 ####[facility] LABCLIA [id number] [place] [address] [place] Hematocrit (Bld) [Volume fraction] 34.0 % Low 39.0-51.0 [facility] Comment on above: Order Comment: Speci men Type: BLOOD SPECIMENOrdering Facility: [facility] Address: [address] [place] [address] Performed By: #### 5 7021-8 ####[facility] LABCLIA [id number] [place] [address] [place] Hemoglobin (Bld) [Mass/Vol] 11.4 g/dL Low 13.0-17.0 [facility] Comment on above: Order Comment: Speci men Type: BLOOD SPECIMENOrdering Facility: [facility] Address: [address] [place] [address] Performed By: #### 5 7021-8 ####[facility] LABIA [id number] [place] [address] [place] Immature granulocytes (Bld) [#/Vol] 0.04 10*3/uL Normal <0.10 [facility] Comment on above: Order Comment: Speci men Type: BLOOD SPECIMENOrdering Facility: [facility] Address: [address] [place] [address] Performed By: #### 5 7021-8 ####[facility] LABIA [id number] [place] [address] [place] Immature granulocytes/100 WBC (Bld) 0.6 % Normal [facility] Comment on above: Order Comment: Speci men Type: BLOOD SPECIMENOrdering Facility: [facility] Address: [address] [place] [address] Performed By: #### 5 7021-8 ####[facility] LABCLIA [id number] [place] [address] [place] Lymphocytes (Bld) [#/Vol] 1.65 10*3/uL Normal 1.00-4.00 [facility] Comment on above: Order Comment: Speci men Type: BLOOD SPECIMENOrdering Facility: [facility] Address: [address] [place] [address] Performed By: #### 5 7021-8 ####[facility] [id number] [place] [address] [place] Lymphocytes/100 WBC (Bld) 23.1 % Normal [facility] Comment on above: Order Comment: Speci men Type: BLOOD SPECIMENOrdering Facility: [facility] Address: [address] [place] [address] Performed By: #### 5 7021-8 ####[facility] [id number] [place] [address] [place] MCH (RBC) [Entitic mass] 30.6 pg Normal 26.0-34.0 [facility] Comment on above: Order Comment: Speci men Type: BLOOD SPECIMENOrdering Facility: [facility] Address: [address] [place] [address] Performed By: #### 5 7021-8 ####[facility] [id number] [place] [address] [place] MCHC (RBC) [Mass/Vol] 33.5 g/dL Normal 30.5-36.0 [facility] Comment on above: Order Comment: Speci men Type: BLOOD SPECIMENOrdering Facility: [facility] Address: [address] [place] [address] Performed By: #### 5 7021-8 ####[facility] [id number] [place] [address] [place] MCV (RBC) [Entitic vol] 91.2 fL Normal 80.0-100.0 [facility] Comment on above: Order Comment: Speci men Type: BLOOD SPECIMENOrdering Facility: [facility] Address: [address] [place] [address] Performed By: #### 5 7021-8 ####[facility] LABCLIA [id number] [facility] [address] [place] [address] [place] Monocytes (Bld) [#/Vol] 1.44 10*3/uL High <0.87 [facility] Comment on above: Order Comment: Speci men Type: BLOOD SPECIMENOrdering Facility: [facility] Address: [address] [place] [address] Performed By: #### 5 7021-8 ####[facility] LABCLIA [id number] [facility] [address], [place] [address] [place] Monocytes/100 WBC (Bld) 20.1 % Normal [facility] Comment on above: Order Comment: Speci men Type: BLOOD SPECIMENOrdering Facility: [facility] Address: [address] [place] [address] Performed By: #### 5 7021-8 ####[facility] LABCLIA [id number] [facility] [place] [address] [place] Neutrophils (Bld) [#/Vol] 3.85 10*3/uL Normal 1.45-7.50 [facility] Comment on above: Order Comment: Speci men Type: BLOOD SPECIMENOrdering Facility: [facility] Address: [address] [place] [address] Performed By: #### 5 7021-8 ####[facility] LABCLIA [id number] [facility] [place] [place] [address] [place] Neutrophils/100 WBC (Bld) 53.8 % Normal [facility] Comment on above: Order Comment: Speci men Type: BLOOD SPECIMENOrdering Facility: [facility] Address: [address] [place] [address] Performed By: #### 5 7021-8 ####[facility] LABCLIA [id number] [facility] [place] [id number] [place] Nucleated RBC (Bld) [#/Vol] 10*3/uL Normal <0.01 [facility] Comment on above: Order Comment: Speci men Type: BLOOD SPECIMENOrdering Facility: [facility] Address: [address] [place] [address] Performed By: #### 5 7021-8 ####[facility] LABCLIA [id number] [address] [address] [place] Nucleated RBC/100 WBC (Bld) [Ratio] 0.0 /100 WBC Normal [facility] Comment on above: Order Comment: Speci men Type: BLOOD SPECIMENOrdering Facility: [facility] Address: [address] [place] [address] Performed By: #### 5 7021-8 ####[facility] LABCLIA [id number] [address] [address] [place] Platelet mean volume (Bld) [Entitic vol] 9.5 fL Normal 9.0-12.7 [facility] Comment on above: Order Comment: Speci men Type: BLOOD SPECIMENOrdering Facility: [facility] Address: [address] [place] [address] Performed By: #### 5 7021-8 ####[facility] LABIA [id number] [address] [address] [place] Platelets (Bld) [#/Vol] 299 10*3/uL Normal 150-400 [facility] Comment on above: Order Comment: Speci men Type: BLOOD SPECIMENOrdering Facility: [facility] Address: [address] [place] [address] Performed By: #### 5 7021-8 ####[facility] LABIA [id number] [address] [address] [place] RBC (Bld) [#/Vol] 3.73 10*6/uL Low 4.20-6.00 [facility] Comment on above: Order Comment: Speci men Type: BLOOD SPECIMENOrdering Facility: [facility] Address: [address] [place] [address] Performed By: #### 5 7021-8 ####[facility] LABIA [id number] [address] [address] [place] WBC (Bld) [#/Vol] 7.15 10*3/uL Normal 3.70-11.00 [facility] Comment on above: Order Comment: Speci men Type: BLOOD SPECIMENOrdering Facility: [facility] Address: [address] [place] [address] Performed By: #### 5 7021-8 ####[facility] LABIA [id number] [place] [address] [place] THERAPY NTon 04-03-2025 THERAPY NT Normal [facility] Basic metabolic 2000 panelon 04-02-2025 Anion gap [Moles/Vol] 12 mmol/L Normal 8-15 [facility] Comment on above: Order Comment: Speci men Type: BLOOD SPECIMENOrdering Facility: [facility] Address: [address] [place] [address] Performed By: #### 2 4321-2 ####[facility] [id number] [place] [id number] [place] Calcium [Mass/Vol] 8.5 mg/dL Normal 8.5-10.2 [facility] Comment on above: Order Comment: Speci men Type: BLOOD SPECIMENOrdering Facility: [facility] Address: [address] [place] [address] Performed By: #### 2 4321-2 ####[facility] LABIA [id number] [place] [id number] [place] Chloride [Moles/Vol] 104 mmol/L Normal 98-107 [facility] Comment on above: Order Comment: Speci men Type: BLOOD SPECIMENOrdering Facility: [facility] Address: [address] [place] [address] Performed By: #### 2 4321-2 ####[facility] LABCLIA [id number] [address] [address] [place] CO2 [Moles/Vol] 20 mmol/L Low 22-30 [facility] Comment on above: Order Comment: Speci men Type: BLOOD SPECIMENOrdering Facility: [facility] Address: [address] [place] [address] Performed By: #### 2 4321-2 ####[facility] LABCLIA [id number] [place] [id number] [place] Creatinine [Mass/Vol] 1.24 mg/dL High 0.73-1.22 [facility] Comment on above: Order Comment: Speci men Type: BLOOD SPECIMENOrdering Facility: [facility] Address: [address] [place] [address] Performed By: #### 2 4321-2 ####[facility] LABIA [id number] [place] [id number] [place] eGFRcr SerPlBld CKD-EPI 2020 56 mL/min/1.73m??? Low >=60 [facility] Comment on above: Order Comment: Speci men Type: BLOOD SPECIMENOrdering Facility: [facility] Address: [address] [place] [address] Result Comment: Ling mated Glomerular Filtration Rate (eGFR) is calculated using the 2020 CKD-EPI creatinine equation. This equation utilizes serum creatinine, sex, and age as parameters. The creatinine assay has traceable calibration to isotope dilution-mass spectrometry. Refer to KDIGO guidelines for clinical interpretation. In patients with unstable renal function, e.g. those with acute kidney injury, the eGFR may not accurately reflect actual GFR. Performed By: #### 2 4321-2 ####[facility] LABCLIA [id number] [address] [address] [place] Glucose [Mass/Vol] 106 mg/dL High 74-99 [facility] Comment on above: Order Comment: Speci men Type: BLOOD SPECIMENOrdering Facility: [facility] Address: [address] [place] [address] Result Comment: The [place] Diabetes [employer] (ADA) provides guidance for cutoff values for fasting glucose and random glucose. The ADA defines fasting as no caloric intake for at least 8 hours. Fasting plasma glucose results between 100 to 125 mg/dL indicate increased risk for diabetes (prediabetes).Fasting plasma glucose results greater than or equal to 126 mg/dL meet the criteria for diagnosis of diabetes. In the absence of unequivocal hyperglycemia, results should be confirmed by repeat testing. In a patient with classic symptoms of hyperglycemia or hyperglycemic crisis, random plasma glucose results greater than or equal to 200 mg/dL meet the criteria for diagnosis of diabetes.Reference: Standards of Medical Care in Diabetes 2016, [place] [employer]. Diabetes Care. 2016.39(Suppl 1). Performed By: #### 2 4321-2 ####[facility] LABCLIA [id number] [place] [address] [place] Potassium [Moles/Vol] 4.3 mmol/L Normal 3.7-5.1 [facility] Comment on above: Order Comment: Speci men Type: BLOOD SPECIMENOrdering Facility: [facility] Address: [address] [place] [id number] Performed By: #### 2 4321-2 ####[facility] LABIA [id number] [place] [id number] [place] Sodium [Moles/Vol] 136 mmol/L Normal 136-144 [facility] Comment on above: Order Comment: Speci men Type: BLOOD SPECIMENOrdering Facility: [facility] Address: [address] [place] [id number] Performed By: #### 2 4321-2 ####[facility] LABIA [id number] [place] [id number] [place] Urea nitrogen [Mass/Vol] 23 mg/dL Normal 9-24 [facility] Comment on above: Order Comment: Speci men Type: BLOOD SPECIMENOrdering Facility: [facility] Address: [address] [place] [address] Performed By: #### 2 4321-2 ####[facility] LABCLIA [id number] [place] [address] [place] CBC W Auto Differential pane l (Bld)on 04-02-2025 Basophils (Bld) [#/Vol] 0.07 10*3/uL Normal <0.11 [facility] Comment on above: Order Comment: Speci men Type: BLOOD SPECIMENOrdering Facility: [facility] Address: [address] [place] [address] Performed By: #### 5 7021-8 ####[facility] LABCLIA [id number] [place] [address] [place] Basophils/100 WBC (Bld) 0.9 % Normal [facility] Comment on above: Order Comment: Speci men Type: BLOOD SPECIMENOrdering Facility: [facility] Address: [address] [place] [address] Performed By: #### 5 7021-8 ####[facility] LABCLIA [id number] [place] [address] [place] Differential cell count method Nom (Bld) Auto Normal [facility] Comment on above: Order Comment: Speci men Type: BLOOD SPECIMENOrdering Facility: [facility] Address: [address] [place] [address] Performed By: #### 5 7021-8 ####[facility] LABCLIA [id number] [place] [address] [place] Eosinophils (Bld) [#/Vol] 0.09 10*3/uL Normal <0.46 [facility] Comment on above: Order Comment: Speci men Type: BLOOD SPECIMENOrdering Facility: [facility] Address: [address] [place] [address] Performed By: #### 5 7021-8 ####[facility] LABCLIA [id number] [place] [address] [place] Eosinophils/100 WBC (Bld) 1.1 % Normal [facility] Comment on above: Order Comment: Speci men Type: BLOOD SPECIMENOrdering Facility: [facility] Address: [address] [place] [address] Performed By: #### 5 7021-8 ####[facility] LABCLIA [id number] [place] [address] [place] Erythrocyte distribution width (RBC) [Ratio] 16.0 % High 11.5-15.0 [facility] Comment on above: Order Comment: Speci men Type: BLOOD SPECIMENOrdering Facility: [facility] Address: [address] [place] [address] Performed By: #### 5 7021-8 ####[facility] LABCLIA [id number] [place] [address] [place] Hematocrit (Bld) [Volume fraction] 33.9 % Low 39.0-51.0 [facility] Comment on above: Order Comment: Speci men Type: BLOOD SPECIMENOrdering Facility: [facility] Address: [address] [place] [address] Performed By: #### 5 7021-8 ####[facility] LABCLIA [id number] [address], [place] [address] [place] Hemoglobin (Bld) [Mass/Vol] 11.3 g/dL Low 13.0-17.0 [facility] Comment on above: Order Comment: Speci men Type: BLOOD SPECIMENOrdering Facility: [facility] Address: [address] [place] [address] Performed By: #### 5 7021-8 ####[facility] LABCLIA [id number] [place] [address] [place] Immature granulocytes (Bld) [#/Vol] 0.03 10*3/uL Normal <0.10 [facility] Comment on above: Order Comment: Speci men Type: BLOOD SPECIMENOrdering Facility: [facility] Address: [address] [place] [address] Performed By: #### 5 7021-8 ####[facility] LABCLIA [id number] [place] [address] [place] Immature granulocytes/100 WBC (Bld) 0.4 % Normal [facility] Comment on above: Order Comment: Speci men Type: BLOOD SPECIMENOrdering Facility: [facility] Address: [address] [place] [address] Performed By: #### 5 7021-8 ####[facility] LABCLIA [id number] [place] [address] [place] Lymphocytes (Bld) [#/Vol] 1.87 10*3/uL Normal 1.00-4.00 [facility] Comment on above: Order Comment: Speci men Type: BLOOD SPECIMENOrdering Facility: [facility] Address: [address] [place] [address] Performed By: #### 5 7021-8 ####[facility] LABIA [id number] [place] [address] [place] Lymphocytes/100 WBC (Bld) 23.4 % Normal [facility] Comment on above: Order Comment: Speci men Type: BLOOD SPECIMENOrdering Facility: [facility] Address: [address] [place] [address] Performed By: #### 5 7021-8 ####[facility] LABCLIA [id number] [place] [id number] [place] MCH (RBC) [Entitic mass] 30.1 pg Normal 26.0-34.0 [facility] Comment on above: Order Comment: Speci men Type: BLOOD SPECIMENOrdering Facility: [facility] Address: [address] [place] [address] Performed By: #### 5 7021-8 ####[facility] LABCLIA [id number] [place] [address] [place] MCHC (RBC) [Mass/Vol] 33.3 g/dL Normal 30.5-36.0 [facility] Comment on above: Order Comment: Speci men Type: BLOOD SPECIMENOrdering Facility: [facility] Address: [address] [place] [address] Performed By: #### 5 7021-8 ####[facility] LABCLIA [id number] [place] [address] [place] MCV (RBC) [Entitic vol] 90.4 fL Normal 80.0-100.0 [facility] Comment on above: Order Comment: Speci men Type: BLOOD SPECIMENOrdering Facility: [facility] Address: [address] [place] [address] Performed By: #### 5 7021-8 ####[facility] LABIA [id number] [place] [address] [place] Monocytes (Bld) [#/Vol] 1.23 10*3/uL High <0.87 [facility] Comment on above: Order Comment: Speci men Type: BLOOD SPECIMENOrdering Facility: [facility] Address: [address] [place] [address] Performed By: #### 5 7021-8 ####[facility] LABIA [id number] [place] [address] [place] Monocytes/100 WBC (Bld) 15.4 % Normal [facility] Comment on above: Order Comment: Speci men Type: BLOOD SPECIMENOrdering Facility: [facility] Address: [address] [place] [address] Performed By: #### 5 7021-8 ####[facility] LABCLIA [id number] [place] [address] [place] Neutrophils (Bld) [#/Vol] 4.70 10*3/uL Normal 1.45-7.50 [facility] Comment on above: Order Comment: Speci men Type: BLOOD SPECIMENOrdering Facility: [facility] Address: [address] [place] [address] Performed By: #### 5 7021-8 ####[facility] LABCLIA [id number] [place] [address] [place] Neutrophils/100 WBC (Bld) 58.8 % Normal [facility] Comment on above: Order Comment: Speci men Type: BLOOD SPECIMENOrdering Facility: [facility] Address: [address] [place] [address] Performed By: #### 5 7021-8 ####[facility] LABIA [id number] [place] [address] [place] Nucleated RBC (Bld) [#/Vol] 10*3/uL Normal <0.01 [facility] Comment on above: Order Comment: Speci men Type: BLOOD SPECIMENOrdering Facility: [facility] Address: [address] [place] [address] Performed By: #### 5 7021-8 ####[facility] LABIA [id number] [place] [address] [place] Nucleated RBC/100 WBC (Bld) [Ratio] 0.0 /100 WBC Normal [facility] Comment on above: Order Comment: Speci men Type: BLOOD SPECIMENOrdering Facility: [facility] Address: [address] [place] [address] Performed By: #### 5 7021-8 ####[facility] LABIA [id number] [place] [address] [place] Platelet mean volume (Bld) [Entitic vol] 9.7 fL Normal 9.0-12.7 [facility] Comment on above: Order Comment: Speci men Type: BLOOD SPECIMENOrdering Facility: [facility] Address: [address] [place] [address] Performed By: #### 5 7021-8 ####[facility] LABCLIA [id number] [address] [place] [address] [place] Platelets (Bld) [#/Vol] 261 10*3/uL Normal 150-400 [facility] Comment on above: Order Comment: Speci men Type: BLOOD SPECIMENOrdering Facility: [facility] Address: [address] [place] [address] Performed By: #### 5 7021-8 ####[facility] LABCLIA [id number] [address], [facility]95 [place] RBC (Bld) [#/Vol] 3.75 10*6/uL Low 4.20-6.00 [facility] Comment on above: Order Comment: Speci men Type: BLOOD SPECIMENOrdering Facility: [facility] Address: [address] [place] [address] Performed By: #### 5 7021-8 ####[facility] LABIA [id number] [address], [facility]95 [place] WBC (Bld) [#/Vol] 7.99 10*3/uL Normal 3.70-11.00 [facility] Comment on above: Order Comment: Speci men Type: BLOOD SPECIMENOrdering Facility: [facility] Address: [address] [place] [address] Performed By: #### 5 7021-8 ####[facility] LABIA [id number] [address], [facility]95 [place] Basic metabolic 2000 panelon 04-01-2025 Anion gap [Moles/Vol] 12 mmol/L Normal 8-15 [facility] Comment on above: Order Comment: Speci men Type: BLOOD SPECIMENOrdering Facility: [facility] Address: [address] [place] [address] Performed By: #### 2 4321-2 ####[facility] LABCLIA [id number] [address], [facility]95 [place] Calcium [Mass/Vol] 8.5 mg/dL Normal 8.5-10.2 [facility] Comment on above: Order Comment: Speci men Type: BLOOD SPECIMENOrdering Facility: [facility] Address: [address] [place], [place] [address] Performed By: #### 2 4321-2 ####[facility] LABCLIA [id number] [facility] [address] [address] [place] Chloride [Moles/Vol] 104 mmol/L Normal 98-107 [facility] Comment on above: Order Comment: Speci men Type: BLOOD SPECIMENOrdering Facility: [facility] Address: [address] [place] [address] Performed By: #### 2 4321-2 ####[facility] LABCLIA [id number] [place] [address] [place] CO2 [Moles/Vol] 20 mmol/L Low 22-30 [facility] Comment on above: Order Comment: Speci men Type: BLOOD SPECIMENOrdering Facility: [facility] Address: [address] [place] [address] Performed By: #### 2 4321-2 ####[facility] LABCLIA [id number] [place] [address] [place] Creatinine [Mass/Vol] 1.35 mg/dL High 0.73-1.22 [facility] Comment on above: Order Comment: Speci men Type: BLOOD SPECIMENOrdering Facility: [facility] Address: [address] [place] [address] Performed By: #### 2 4321-2 ####[facility] LABCLIA [id number] [place] [id number] [place] eGFRcr SerPlBld CKD-EPI 2020 51 mL/min/1.73m??? Low >=60 [facility] Comment on above: Order Comment: Speci men Type: BLOOD SPECIMENOrdering Facility: [facility] Address: [address] [place], [place] [id number] Result Comment: Ling mated Glomerular Filtration Rate (eGFR) is calculated using the 2020 CKD-EPI creatinine equation. This equation utilizes serum creatinine, sex, and age as parameters. The creatinine assay has traceable calibration to isotope dilution-mass spectrometry. Refer to KDIGO guidelines for clinical interpretation. In patients with unstable renal function, e.g. those with acute kidney injury, the eGFR may not accurately reflect actual GFR. Performed By: #### 2 4321-2 ####[facility] LABCLIA [id number] [address] [address] [place] Glucose [Mass/Vol] 96 mg/dL Normal 74-99 [facility] Comment on above: Order Comment: Katie young Type: BLOOD SPECIMENOrdering Facility: [facility] Address: [address] [place] [address] Result Comment: The [place] [employer] (ADA) provides guidance for cutoff values for fasting glucose and random glucose. The ADA defines fasting as no caloric intake for at least 8 hours. Fasting plasma glucose results between 100 to 125 mg/dL indicate increased risk for diabetes (prediabetes).Fasting plasma glucose results greater than or equal to 126 mg/dL meet the criteria for diagnosis of diabetes. In the absence of unequivocal hyperglycemia, results should be confirmed by repeat testing. In a patient with classic symptoms of hyperglycemia or hyperglycemic crisis, random plasma glucose results greater than or equal to 200 mg/dL meet the criteria for diagnosis of diabetes.Reference: Standards of Medical Care in Diabetes 2016, [place] [employer]. Diabetes Care. 2016.39(Suppl 1). Performed By: #### 2 4321-2 ####[facility] LABCLIA [id number] [address] [address] [place] Potassium [Moles/Vol] 4.2 mmol/L Normal 3.7-5.1 [facility] Comment on above: Order Comment: Katie young Type: BLOOD SPECIMENOrdering Facility: [facility] Address: [address] [id number] Performed By: #### 2 4321-2 ####[facility] LABCLIA [id number] [facility] [address] [place] [id number] [place] Sodium [Moles/Vol] 136 mmol/L Normal 136-144 [facility] Comment on above: Order Comment: Speci men Type: BLOOD SPECIMENOrdering Facility: [facility] Address: [address] [place] [address] Performed By: #### 2 4321-2 ####[facility] LABCLIA [id number] [place] [address] [place] Urea nitrogen [Mass/Vol] 26 mg/dL High 9-24 [facility] Comment on above: Order Comment: Speci men Type: BLOOD SPECIMENOrdering Facility: [facility] Address: [address] [place] [address] Performed By: #### 2 4321-2 ####[facility] LABCLIA [id number] [place] [address] [place] CASE MANAGEMon 04-01-2025 CASE MANAGEM Normal [facility] CBC W Auto Differential pane l (Bld)on 04-01-2025 Basophils (Bld) [#/Vol] 0.08 10*3/uL Normal <0.11 [facility] Comment on above: Order Comment: Speci men Type: BLOOD SPECIMENOrdering Facility: [facility] Address: [address] [place] [address] Performed By: #### 5 7021-8 ####[facility] LABCLIA [id number] [place] [address] [place] Basophils/100 WBC (Bld) 1.0 % Normal [facility] Comment on above: Order Comment: Speci men Type: BLOOD SPECIMENOrdering Facility: [facility] Address: [address] [place] [address] Performed By: #### 5 7021-8 ####[facility] LABCLIA [id number] [address], [facility]95 [place] Differential cell count method Nom (Bld) Auto Normal [facility] Comment on above: Order Comment: Speci men Type: BLOOD SPECIMENOrdering Facility: [facility] Address: [address] [place] [address] Performed By: #### 5 7021-8 ####[facility] LABCLIA [id number] [place] [address] [place] Eosinophils (Bld) [#/Vol] 0.14 10*3/uL Normal <0.46 [facility] Comment on above: Order Comment: Speci men Type: BLOOD SPECIMENOrdering Facility: [facility] Address: [address] [place] [address] Performed By: #### 5 7021-8 ####[facility] LABCLIA [id number] [place] [address] [place] Eosinophils/100 WBC (Bld) 1.7 % Normal [facility] Comment on above: Order Comment: Speci men Type: BLOOD SPECIMENOrdering Facility: [facility] Address: [address] [place] [address] Performed By: #### 5 7021-8 ####[facility] LABCLIA [id number] [place] [address] [place] Erythrocyte distribution width (RBC) [Ratio] 16.0 % High 11.5-15.0 [facility] Comment on above: Order Comment: Speci men Type: BLOOD SPECIMENOrdering Facility: [facility] Address: [address] [place] [address] Performed By: #### 5 7021-8 ####[facility] LABCLIA [id number] [place] [id number] [place] Hematocrit (Bld) [Volume fraction] 35.5 % Low 39.0-51.0 [facility] Comment on above: Order Comment: Speci men Type: BLOOD SPECIMENOrdering Facility: [facility] Address: [address] [place] [address] Performed By: #### 5 7021-8 ####[facility] LABCLIA [id number] [address] [address] [place] Hemoglobin (Bld) [Mass/Vol] 11.4 g/dL Low 13.0-17.0 [facility] Comment on above: Order Comment: Speci men Type: BLOOD SPECIMENOrdering Facility: [facility] Address: [address] [place] [address] Performed By: #### 5 7021-8 ####[facility] LABCLIA [id number] [place] [address] [place] Immature granulocytes (Bld) [#/Vol] 0.05 10*3/uL Normal <0.10 [facility] Comment on above: Order Comment: Speci men Type: BLOOD SPECIMENOrdering Facility: [facility] Address: [address] [place] [address] Performed By: #### 5 7021-8 ####[facility] LABIA [id number] [place] [address] [place] Immature granulocytes/100 WBC (Bld) 0.6 % Normal [facility] Comment on above: Order Comment: Speci men Type: BLOOD SPECIMENOrdering Facility: [facility] Address: [address] [place] [address] Performed By: #### 5 7021-8 ####[facility] LABIA [id number] [place] [address] [place] Lymphocytes (Bld) [#/Vol] 1.92 10*3/uL Normal 1.00-4.00 [facility] Comment on above: Order Comment: Speci men Type: BLOOD SPECIMENOrdering Facility: [facility] Address: [address] [place] [address] Performed By: #### 5 7021-8 ####[facility] LABCLIA [id number] [place] [address] [place] Lymphocytes/100 WBC (Bld) 23.3 % Normal [facility] Comment on above: Order Comment: Speci men Type: BLOOD SPECIMENOrdering Facility: [facility] Address: [address] [place] [address] Performed By: #### 5 7021-8 ####[facility] LABIA [id number] [place] [address] [place] MCH (RBC) [Entitic mass] 30.2 pg Normal 26.0-34.0 [facility] Comment on above: Order Comment: Speci men Type: BLOOD SPECIMENOrdering Facility: [facility] Address: [address] [place] [address] Performed By: #### 5 7021-8 ####[facility] [id number] [place] [address] [place] MCHC (RBC) [Mass/Vol] 32.1 g/dL Normal 30.5-36.0 [facility] Comment on above: Order Comment: Speci men Type: BLOOD SPECIMENOrdering Facility: [facility] Address: [address] [place] [address] Performed By: #### 5 7021-8 ####[facility] LABIA [id number] [place] [address] [place] MCV (RBC) [Entitic vol] 93.9 fL Normal 80.0-100.0 [facility] Comment on above: Order Comment: Speci men Type: BLOOD SPECIMENOrdering Facility: [facility] Address: [address] [place] [address] Performed By: #### 5 7021-8 ####[facility] LABIA [id number] [place] [address] [place] Monocytes (Bld) [#/Vol] 1.46 10*3/uL High <0.87 [facility] Comment on above: Order Comment: Speci men Type: BLOOD SPECIMENOrdering Facility: [facility] Address: [address] [place] [address] Performed By: #### 5 7021-8 ####[facility] LABCLIA [id number] [place] [address] [place] Monocytes/100 WBC (Bld) 17.7 % Normal [facility] Comment on above: Order Comment: Speci men Type: BLOOD SPECIMENOrdering Facility: [facility] Address: [address] [place] [address] Performed By: #### 5 7021-8 ####[facility] LABCLIA [id number] [place] [address] [place] Neutrophils (Bld) [#/Vol] 4.60 10*3/uL Normal 1.45-7.50 [facility] Comment on above: Order Comment: Speci men Type: BLOOD SPECIMENOrdering Facility: [facility] Address: [address] [place] [address] Performed By: #### 5 7021-8 ####[facility] LABIA [id number] [place] [address] [place] Neutrophils/100 WBC (Bld) 55.7 % Normal [facility] Comment on above: Order Comment: Speci men Type: BLOOD SPECIMENOrdering Facility: [facility] Address: [address] [place] [address] Performed By: #### 5 7021-8 ####[facility] LABIA [id number] [place] [address] [place] Nucleated RBC (Bld) [#/Vol] 10*3/uL Normal <0.01 [facility] Comment on above: Order Comment: Speci men Type: BLOOD SPECIMENOrdering Facility: [facility] Address: [address] [place] [address] Performed By: #### 5 7021-8 ####[facility] LABCLIA [id number] [place] [id number] [place] Nucleated RBC/100 WBC (Bld) [Ratio] 0.0 /100 WBC Normal [facility] Comment on above: Order Comment: Speci men Type: BLOOD SPECIMENOrdering Facility: [facility] Address: [address] [place] [address] Performed By: #### 5 7021-8 ####[facility] LABIA [id number] [place] [address] [place] Platelet mean volume (Bld) [Entitic vol] 10.0 fL Normal 9.0-12.7 [facility] Comment on above: Order Comment: Speci men Type: BLOOD SPECIMENOrdering Facility: [facility] Address: [address] [place] [address] Performed By: #### 5 7021-8 ####[facility] LABIA [id number] [place] [address] [place] Platelets (Bld) [#/Vol] 245 10*3/uL Normal 150-400 [facility] Comment on above: Order Comment: Speci men Type: BLOOD SPECIMENOrdering Facility: [facility] Address: [address] [place] [address] Performed By: #### 5 7021-8 ####[facility] LABIA [id number] [place] [address] [place] RBC (Bld) [#/Vol] 3.78 10*6/uL Low 4.20-6.00 [facility] Comment on above: Order Comment: Speci men Type: BLOOD SPECIMENOrdering Facility: [facility] Address: [address] [place] [address] Performed By: #### 5 7021-8 ####[facility] LABIA [id number] [place] [address] [place] WBC (Bld) [#/Vol] 8.25 10*3/uL Normal 3.70-11.00 [facility] Comment on above: Order Comment: Speci men Type: BLOOD SPECIMENOrdering Facility: [facility] Address: [address] [id number] Performed By: #### 5 7021-8 ####[facility] LABCLIA [id number] [place] [address] [place] CNOVon 04-01-2025 CNOV Normal [facility] CONSULTon 04-01-2025 CONSULT Normal [facility] CONSULT PROGon 04-01-2025 CONSULT PROG Normal [facility] THERAPY NTon 04-01-2025 THERAPY NT Normal [facility] THERAPY NT Normal [facility] XR CHEST 1V FRONTAL PORTon 0 04-01-2025 XR CHEST 1V FRONTAL PORT Normal [facility] ALLIED HEALTHon 03-31-2025 ALLIED HEALTH Normal [facility] Basic metabolic 2000 panelon 03-31-2025 Anion gap [Moles/Vol] 14 mmol/L Normal 8-15 [facility] Comment on above: Order Comment: Speci men Type: BLOOD SPECIMENOrdering Facility: [facility] Address: [address] [place] [address] Performed By: #### 2 4321-2 ####[facility] LABCLIA [id number] [place] [address] [place] Calcium [Mass/Vol] 8.7 mg/dL Normal 8.5-10.2 [facility] Comment on above: Order Comment: Speci men Type: BLOOD SPECIMENOrdering Facility: [facility] Address: [address] [place], [place] [address] Performed By: #### 2 4321-2 ####[facility] LABCLIA [id number] [place] [id number] [place] Chloride [Moles/Vol] 105 mmol/L Normal 98-107 [facility] Comment on above: Order Comment: Speci men Type: BLOOD SPECIMENOrdering Facility: [facility] Address: [address] [id number] Performed By: #### 2 4321-2 ####[facility] LABCLIA [id number] [place] [id number] [place] CO2 [Moles/Vol] 19 mmol/L Low 22-30 [facility] Comment on above: Order Comment: Speci men Type: BLOOD SPECIMENOrdering Facility: [facility] Address: [address] [place] [address] Performed By: #### 2 4321-2 ####[facility] LABCLIA [id number] [place] [id number] [place] Creatinine [Mass/Vol] 1.41 mg/dL High 0.73-1.22 [facility] Comment on above: Order Comment: Speci men Type: BLOOD SPECIMENOrdering Facility: [facility] Address: [address] [place] [address] Performed By: #### 2 4321-2 ####[facility] LABIA [id number] [place] [id number] [place] eGFRcr SerPlBld CKD-EPI 2020 48 mL/min/1.73m??? Low >=60 [facility] Comment on above: Order Comment: Speci men Type: BLOOD SPECIMENOrdering Facility: [facility] Address: [address] [place] [address] Result Comment: Ling mated Glomerular Filtration Rate (eGFR) is calculated using the 2020 CKD-EPI creatinine equation. This equation utilizes serum creatinine, sex, and age as parameters. The creatinine assay has traceable calibration to isotope dilution-mass spectrometry. Refer to KDIGO guidelines for clinical interpretation. In patients with unstable renal function, e.g. those with acute kidney injury, the eGFR may not accurately reflect actual GFR. Performed By: #### 2 4321-2 ####[facility] LABCLIA [id number] [place] [id number] [place] Glucose [Mass/Vol] 119 mg/dL High 74-99 [facility] Comment on above: Order Comment: Speci men Type: BLOOD SPECIMENOrdering Facility: [facility] Address: [address] [place] [address] Result Comment: The [place] Diabetes Association (ADA) provides guidance for cutoff values for fasting glucose and random glucose. The ADA defines fasting as no caloric intake for at least 8 hours. Fasting plasma glucose results between 100 to 125 mg/dL indicate increased risk for diabetes (prediabetes).Fasting plasma glucose results greater than or equal to 126 mg/dL meet the criteria for diagnosis of diabetes. In the absence of unequivocal hyperglycemia, results should be confirmed by repeat testing. In a patient with classic symptoms of hyperglycemia or hyperglycemic crisis, random plasma glucose results greater than or equal to 200 mg/dL meet the criteria for diagnosis of diabetes.Reference: Standards of Medical Care in Diabetes 2016, [place] [employer]. Diabetes Care. 2016.39(Suppl 1). Performed By: #### 2 4321-2 ####[facility] LABIA [id number] [place] [address] [place] Potassium [Moles/Vol] 4.1 mmol/L Normal 3.7-5.1 [facility] Comment on above: Order Comment: Speci men Type: BLOOD SPECIMENOrdering Facility: [facility] Address: [address] [place] [address] Performed By: #### 2 1-2 ####[facility] LABIA [id number] [place] [address] [place] Sodium [Moles/Vol] 138 mmol/L Normal 136-144 [facility] Comment on above: Order Comment: Speci men Type: BLOOD SPECIMENOrdering Facility: [facility] Address: [address] [place] [address] Performed By: #### 2 1-2 ####[facility] LABIA [id number] [place] [address] [place] Urea nitrogen [Mass/Vol] 28 mg/dL High 9-24 [facility] Comment on above: Order Comment: Speci men Type: BLOOD SPECIMENOrdering Facility: [facility] Address: [address] [place] [address] Performed By: #### 2 4321-2 ####[facility] LABCLIA [id number] [place] [id number] [place] CASE MGT INIT ASSESon 2024 CASE MGT INIT ASSES Normal [facility] CBC W Auto Differential pane l (Bld)on 03-31-2025 Basophils (Bld) [#/Vol] 0.08 10*3/uL Normal <0.11 [facility] Comment on above: Order Comment: Speci men Type: BLOOD SPECIMENOrdering Facility: [facility] Address: [address] [place] [address] Performed By: #### 5 7021-8 ####[facility] LABCLIA [id number] [place] [address] [place] Basophils/100 WBC (Bld) 1.2 % Normal [facility] Comment on above: Order Comment: Speci men Type: BLOOD SPECIMENOrdering Facility: [facility] Address: [address] [place] [address] Performed By: #### 5 7021-8 ####[facility] LABCLIA [id number] [place] [address] [place] Differential cell count method Nom (Bld) Auto Normal [facility] Comment on above: Order Comment: Speci men Type: BLOOD SPECIMENOrdering Facility: [facility] Address: [address] [place] [address] Performed By: #### 5 7021-8 ####[facility] LABCLIA [id number] [place] [id number] [place] Eosinophils (Bld) [#/Vol] 0.14 10*3/uL Normal <0.46 [facility] Comment on above: Order Comment: Speci men Type: BLOOD SPECIMENOrdering Facility: [facility] Address: [address] [place] [address] Performed By: #### 5 7021-8 ####[facility] LABCLIA [id number] [address] [place] [address] [place] Eosinophils/100 WBC (Bld) 2.1 % Normal [facility] Comment on above: Order Comment: Speci men Type: BLOOD SPECIMENOrdering Facility: [facility] Address: [address] [place] [address] Performed By: #### 5 7021-8 ####[facility] LABCLIA [id number] [address], [place] [address] [place] Erythrocyte distribution width (RBC) [Ratio] 16.1 % High 11.5-15.0 [facility] Comment on above: Order Comment: Speci men Type: BLOOD SPECIMENOrdering Facility: [facility] Address: [address] [place] [address] Performed By: #### 5 7021-8 ####[facility] LABCLIA [id number] [address], [place] [address] [place] Hematocrit (Bld) [Volume fraction] 35.4 % Low 39.0-51.0 [facility] Comment on above: Order Comment: Speci men Type: BLOOD SPECIMENOrdering Facility: [facility] Address: [address] [place] [address] Performed By: #### 5 7021-8 ####[facility] LABCLIA [id number] [address], [place] [address] [place] Hemoglobin (Bld) [Mass/Vol] 11.6 g/dL Low 13.0-17.0 [facility] Comment on above: Order Comment: Speci men Type: BLOOD SPECIMENOrdering Facility: [facility] Address: [address] [place] [address] Performed By: #### 5 7021-8 ####[facility] LABCLIA [id number] [address], [facility]95 [place] Immature granulocytes (Bld) [#/Vol] 0.03 10*3/uL Normal <0.10 [facility] Comment on above: Order Comment: Speci men Type: BLOOD SPECIMENOrdering Facility: [facility] Address: [address] [place] [address] Performed By: #### 5 7021-8 ####[facility] LABCLIA [id number] [address] [place] [facility] Immature granulocytes/100 WBC (Bld) 0.4 % Normal [facility] Comment on above: Order Comment: Speci men Type: BLOOD SPECIMENOrdering Facility: [facility] Address: [address] [place] [address] Performed By: #### 5 7021-8 ####[facility] LABCLIA [id number] [place] [address] [place] Lymphocytes (Bld) [#/Vol] 1.75 10*3/uL Normal 1.00-4.00 [facility] Comment on above: Order Comment: Speci men Type: BLOOD SPECIMENOrdering Facility: [facility] Address: [address] [place] [address] Performed By: #### 5 7021-8 ####[facility] LABCLIA [id number] [place] [address] [place] Lymphocytes/100 WBC (Bld) 26.0 % Normal [facility] Comment on above: Order Comment: Speci men Type: BLOOD SPECIMENOrdering Facility: [facility] Address: [address] [place] [address] Performed By: #### 5 7021-8 ####[facility] LABCLIA [id number] [place] [id number] [place] MCH (RBC) [Entitic mass] 30.1 pg Normal 26.0-34.0 [facility] Comment on above: Order Comment: Speci men Type: BLOOD SPECIMENOrdering Facility: [facility] Address: [address] [place] [address] Performed By: #### 5 7021-8 ####[facility] LABCLIA [id number] [place] [address] [place] MCHC (RBC) [Mass/Vol] 32.8 g/dL Normal 30.5-36.0 [facility] Comment on above: Order Comment: Speci men Type: BLOOD SPECIMENOrdering Facility: [facility] Address: [address] [place] [address] Performed By: #### 5 7021-8 ####[facility] LABIA [id number] [place] [address] [place] MCV (RBC) [Entitic vol] 91.7 fL Normal 80.0-100.0 [facility] Comment on above: Order Comment: Speci men Type: BLOOD SPECIMENOrdering Facility: [facility] Address: [address] [place] [address] Performed By: #### 5 7021-8 ####[facility] LABIA [id number] [place] [address] [place] Monocytes (Bld) [#/Vol] 1.18 10*3/uL High <0.87 [facility] Comment on above: Order Comment: Speci men Type: BLOOD SPECIMENOrdering Facility: [facility] Address: [address] [place] [address] Performed By: #### 5 7021-8 ####[facility] LABIA [id number] [place] [address] [place] Monocytes/100 WBC (Bld) 17.5 % Normal [facility] Comment on above: Order Comment: Speci men Type: BLOOD SPECIMENOrdering Facility: [facility] Address: [address] [place] [address] Performed By: #### 5 7021-8 ####[facility] LABCLIA [id number] [place] [id number] [place] Neutrophils (Bld) [#/Vol] 3.55 10*3/uL Normal 1.45-7.50 [facility] Comment on above: Order Comment: Speci men Type: BLOOD SPECIMENOrdering Facility: [facility] Address: [address] [place] [address] Performed By: #### 5 7021-8 ####[facility] LABIA [id number] [place] [address] [place] Neutrophils/100 WBC (Bld) 52.8 % Normal [facility] Comment on above: Order Comment: Speci men Type: BLOOD SPECIMENOrdering Facility: [facility] Address: [address] [place] [address] Performed By: #### 5 7021-8 ####[facility] LABIA [id number] [place] [address] [place] Nucleated RBC (Bld) [#/Vol] 10*3/uL Normal <0.01 [facility] Comment on above: Order Comment: Speci men Type: BLOOD SPECIMENOrdering Facility: [facility] Address: [address] [place] [address] Performed By: #### 5 7021-8 ####[facility] LABIA [id number] [place] [address] [place] Nucleated RBC/100 WBC (Bld) [Ratio] 0.0 /100 WBC Normal [facility] Comment on above: Order Comment: Speci men Type: BLOOD SPECIMENOrdering Facility: [facility] Address: [address] [place] [address] Performed By: #### 5 7021-8 ####[facility] LABIA [id number] [place] [address] [place] Platelet mean volume (Bld) [Entitic vol] 9.6 fL Normal 9.0-12.7 [facility] Comment on above: Order Comment: Speci men Type: BLOOD SPECIMENOrdering Facility: [facility] Address: [address] [place] [address] Performed By: #### 5 7021-8 ####[facility] LABCLIA [id number] [address] [address] [place] Platelets (Bld) [#/Vol] 247 10*3/uL Normal 150-400 [facility] Comment on above: Order Comment: Speci men Type: BLOOD SPECIMENOrdering Facility: [facility] Address: [address] [place] [address] Performed By: #### 5 7021-8 ####[facility] LABCLIA [id number] [place] [address] [place] RBC (Bld) [#/Vol] 3.86 10*6/uL Low 4.20-6.00 [facility] Comment on above: Order Comment: Speci men Type: BLOOD SPECIMENOrdering Facility: [facility] Address: [address] [place] [address] Performed By: #### 5 7021-8 ####[facility] LABIA [id number] [place] [address] [place] WBC (Bld) [#/Vol] 6.73 10*3/uL Normal 3.70-11.00 [facility] Comment on above: Order Comment: Speci men Type: BLOOD SPECIMENOrdering Facility: [facility] Address: [address] [place] [address] Performed By: #### 5 7021-8 ####[facility] LABIA [id number] [place] [address] [place] Basophils (Bld) [#/Vol] 0.07 10*3/uL Normal <0.11 [facility] Comment on above: Order Comment: Speci men Type: BLOOD SPECIMENOrdering Facility: [facility] Address: [address] [place] [address] Performed By: #### 5 7021-8 ####[facility] LABCLIA [id number] [place] [address] [place] Basophils/100 WBC (Bld) 1.0 % Normal [facility] Comment on above: Order Comment: Speci men Type: BLOOD SPECIMENOrdering Facility: [facility] Address: [address] [place] [address] Performed By: #### 5 7021-8 ####[facility] LABCLIA [id number] [place] [address] [place] Differential cell count method Nom (Bld) Auto Normal [facility] Comment on above: Order Comment: Speci men Type: BLOOD SPECIMENOrdering Facility: [facility] Address: [address] [place] [address] Performed By: #### 5 7021-8 ####[facility] LABCLIA [id number] [place] [address] [place] Eosinophils (Bld) [#/Vol] 0.13 10*3/uL Normal <0.46 [facility] Comment on above: Order Comment: Speci men Type: BLOOD SPECIMENOrdering Facility: [facility] Address: [address] [place] [address] Performed By: #### 5 7021-8 ####[facility] LABCLIA [id number] [place] [address] [place] Eosinophils/100 WBC (Bld) 1.9 % Normal [facility] Comment on above: Order Comment: Speci men Type: BLOOD SPECIMENOrdering Facility: [facility] Address: [address] [place] [address] Performed By: #### 5 7021-8 ####[facility] LABCLIA [id number] [place] [address] [place] Erythrocyte distribution width (RBC) [Ratio] 16.2 % High 11.5-15.0 [facility] Comment on above: Order Comment: Speci men Type: BLOOD SPECIMENOrdering Facility: [facility] Address: [address] [place] [address] Performed By: #### 5 7021-8 ####[facility] LABIA [id number] [place] [address] [place] Hematocrit (Bld) [Volume fraction] 35.8 % Low 39.0-51.0 [facility] Comment on above: Order Comment: Speci men Type: BLOOD SPECIMENOrdering Facility: [facility] Address: [address] [place] [address] Performed By: #### 5 7021-8 ####[facility] LABIA [id number] [place] [address] [place] Hemoglobin (Bld) [Mass/Vol] 11.7 g/dL Low 13.0-17.0 [facility] Comment on above: Order Comment: Speci men Type: BLOOD SPECIMENOrdering Facility: [facility] Address: [address] [place] [address] Performed By: #### 5 7021-8 ####[facility] LABIA [id number] [place] [address] [place] Immature granulocytes (Bld) [#/Vol] 0.04 10*3/uL Normal <0.10 [facility] Comment on above: Order Comment: Speci men Type: BLOOD SPECIMENOrdering Facility: [facility] Address: [address] [place] [address] Performed By: #### 5 7021-8 ####[facility] LABIA [id number] [place] [address] [place] Immature granulocytes/100 WBC (Bld) 0.6 % Normal [facility] Comment on above: Order Comment: Speci men Type: BLOOD SPECIMENOrdering Facility: [facility] Address: [address] [place] [address] Performed By: #### 5 7021-8 ####[facility] LABIA [id number] [place] [address] [place] Lymphocytes (Bld) [#/Vol] 1.83 10*3/uL Normal 1.00-4.00 [facility] Comment on above: Order Comment: Speci men Type: BLOOD SPECIMENOrdering Facility: [facility] Address: [address] [place] [address] Performed By: #### 5 7021-8 ####[facility] LABIA [id number] [place] [address] [place] Lymphocytes/100 WBC (Bld) 27.0 % Normal [facility] Comment on above: Order Comment: Speci men Type: BLOOD SPECIMENOrdering Facility: [facility] Address: [address] [place] [address] Performed By: #### 5 7021-8 ####[facility] LABIA [id number] [place] [address] [place] MCH (RBC) [Entitic mass] 30.2 pg Normal 26.0-34.0 [facility] Comment on above: Order Comment: Speci men Type: BLOOD SPECIMENOrdering Facility: [facility] Address: [address] [place] [address] Performed By: #### 5 7021-8 ####[facility] LABIA [id number] [place] [address] [place] MCHC (RBC) [Mass/Vol] 32.7 g/dL Normal 30.5-36.0 [facility] Comment on above: Order Comment: Speci men Type: BLOOD SPECIMENOrdering Facility: [facility] Address: [address] [place] [address] Performed By: #### 5 7021-8 ####[facility] LABIA [id number] [place] [address] [place] MCV (RBC) [Entitic vol] 92.5 fL Normal 80.0-100.0 [facility] Comment on above: Order Comment: Speci men Type: BLOOD SPECIMENOrdering Facility: [facility] Address: [address] [place] [address] Performed By: #### 5 7021-8 ####[facility] LABCLIA [id number] [address] [place] [address] [place] Monocytes (Bld) [#/Vol] 1.14 10*3/uL High <0.87 [facility] Comment on above: Order Comment: Speci men Type: BLOOD SPECIMENOrdering Facility: [facility] Address: [address] [place] [address] Performed By: #### 5 7021-8 ####[facility] LABCLIA [id number] [address], [facility]95 [place] Monocytes/100 WBC (Bld) 16.8 % Normal [facility] Comment on above: Order Comment: Speci men Type: BLOOD SPECIMENOrdering Facility: [facility] Address: [address] [place] [address] Performed By: #### 5 7021-8 ####[facility] LABCLIA [id number] [address], [facility]95 [place] Neutrophils (Bld) [#/Vol] 3.58 10*3/uL Normal 1.45-7.50 [facility] Comment on above: Order Comment: Speci men Type: BLOOD SPECIMENOrdering Facility: [facility] Address: [address] [place] [address] Performed By: #### 5 7021-8 ####[facility] LABCLIA [id number] [address], [facility]95 [place] Neutrophils/100 WBC (Bld) 52.7 % Normal [facility] Comment on above: Order Comment: Speci men Type: BLOOD SPECIMENOrdering Facility: [facility] Address: [address] [place] [address] Performed By: #### 5 7021-8 ####[facility] LABCLIA [id number] [address] [place] [address] [place] Nucleated RBC (Bld) [#/Vol] 10*3/uL Normal <0.01 [facility] Comment on above: Order Comment: Speci men Type: BLOOD SPECIMENOrdering Facility: [facility] Address: [address] [place] [address] Performed By: #### 5 7021-8 ####[facility] LABCLIA [id number] [place] [address] [place] Nucleated RBC/100 WBC (Bld) [Ratio] 0.0 /100 WBC Normal [facility] Comment on above: Order Comment: Speci men Type: BLOOD SPECIMENOrdering Facility: [facility] Address: [address] [place] [address] Performed By: #### 5 7021-8 ####[facility] LABCLIA [id number] [place] [address] [place] Platelet mean volume (Bld) [Entitic vol] 9.9 fL Normal 9.0-12.7 [facility] Comment on above: Order Comment: Speci men Type: BLOOD SPECIMENOrdering Facility: [facility] Address: [address] [place] [address] Performed By: #### 5 7021-8 ####[facility] LABIA [id number] [place] [address] [place] Platelets (Bld) [#/Vol] 270 10*3/uL Normal 150-400 [facility] Comment on above: Order Comment: Speci men Type: BLOOD SPECIMENOrdering Facility: [facility] Address: [address] [place] [address] Performed By: #### 5 7021-8 ####[facility] LABCLIA [id number] [place] [address] [place] RBC (Bld) [#/Vol] 3.87 10*6/uL Low 4.20-6.00 [facility] Comment on above: Order Comment: Speci men Type: BLOOD SPECIMENOrdering Facility: [facility] Address: [address] [place] [address] Performed By: #### 5 7021-8 ####[facility] LABCLIA [id number] [place] [address] [place] WBC (Bld) [#/Vol] 6.79 10*3/uL Normal 3.70-11.00 [facility] Comment on above: Order Comment: Speci men Type: BLOOD SPECIMENOrdering Facility: [facility] Address: [address] [place] [address] Performed By: #### 5 7021-8 ####[facility] LABIA [id number] [place] [address] [place] FEMUR WO IVCON RTon 03-31 CT FEMUR WO IVCON RT Normal [facility] CT HIP WO IVCON RTon 025 CT HIP WO IVCON RT Normal [facility] NUTRITIONon 03-31-2025 NUTRITION Normal [facility] SOCIAL WORKon 03-31-2025 SOCIAL WORK Normal [facility] CT BRAIN WO IVCONon 03-30-20 CT BRAIN WO IVCON Normal [facility] Comprehensive metabolic 2000 panelon 03-30-2025 Albumin [Mass/Vol] 3.0 g/dL Low 3.9-4.9 [facility] Comment on above: Order Comment: Speci men Type: BLOOD SPECIMENOrdering Facility: [facility] Address: [address] [place] [address] Performed By: #### 2 777-1, 38168-7, 59551-7, 3084-1 ####[facility] LABIA [id number] [place] [address] [place] ALP [Catalytic activity/Vol] 68 U/L Normal 38-113 [facility] Comment on above: Order Comment: Speci men Type: BLOOD SPECIMENOrdering Facility: [facility] Address: [address] [place] [address] Performed By: #### 2 777-1, 31891-8, 23803-3, 3084-1 ####[facility] LABCLIA [id number] [address] [address] [place] ALT [Catalytic activity/Vol] 29 U/L Normal 10-54 [facility] Comment on above: Order Comment: Speci men Type: BLOOD SPECIMENOrdering Facility: [facility] Address: [address] [place], [place] [address] Performed By: #### 2 777-1, 50867-2, 52076-7, 3084- ####[facility] LABIA [id number] [address] [address] [place] Anion gap [Moles/Vol] 12 mmol/L Normal 8-15 [facility] Comment on above: Order Comment: Speci men Type: BLOOD SPECIMENOrdering Facility: [facility] Address: [address] [place], [place] [address] Performed By: #### 2 777-1, 31946-2, 30454-3, 4- ####[facility] LABIA [id number] [address] [address] [place] AST [Catalytic activity/Vol] 31 U/L Normal 14-40 [facility] Comment on above: Order Comment: Speci men Type: BLOOD SPECIMENOrdering Facility: [facility] Address: [address] [place], [place] [address] Performed By: #### 2 777-1, 65671-0, 07229-7, 4- ####[facility] LABIA [id number] [address] [address] [place] Bilirubin [Mass/Vol] 0.5 mg/dL Normal 0.2-1.3 [facility] Comment on above: Order Comment: Speci men Type: BLOOD SPECIMENOrdering Facility: [facility] Address: [address] [place], [place] [address] Performed By: #### 2 777-1, 94687-5, 06848-7, 3084-1 ####[facility] LABCLIA [id number] [address] [address] [place] Calcium [Mass/Vol] 9.1 mg/dL Normal 8.5-10.2 [facility] Comment on above: Order Comment: Speci men Type: BLOOD SPECIMENOrdering Facility: [facility] Address: [address] [place], [place] [address] Performed By: #### 2 777-1, 85552-3, 85404-9, 3084- ####[facility] LABIA [id number] [address] [address] [place] Chloride [Moles/Vol] 106 mmol/L Normal 98-107 [facility] Comment on above: Order Comment: Speci men Type: BLOOD SPECIMENOrdering Facility: [facility] Address: [address] [place] [address] Performed By: #### 2 777-1, 95573-3, 93934-9, 4- ####[facility] LABIA [id number] [address] [address] [place] CO2 [Moles/Vol] 18 mmol/L Low 22-30 [facility] Comment on above: Order Comment: Speci men Type: BLOOD SPECIMENOrdering Facility: [facility] Address: [address] [place], [place] [address] Performed By: #### 2 777-1, 69721-9, 09896-9, 3084- ####[facility] LABIA [id number] [address] [address] [place] Creatinine [Mass/Vol] 1.44 mg/dL High 0.73-1.22 [facility] Comment on above: Order Comment: Speci men Type: BLOOD SPECIMENOrdering Facility: [facility] Address: [address] [place], [place] [address] Performed By: #### 2 777-1, 80195-0, 23800-5, 3083-07 ####[facility] LABIA [id number] [place] [address] [place] eGFRcr SerPlBld CKD-EPI 2020 47 mL/min/1.73m??? Low >=60 [facility] Comment on above: Order Comment: Katie young Type: BLOOD SPECIMENOrdering Facility: [facility] Address: [address] [place] [address] Result Comment: Ling mated Glomerular Filtration Rate (eGFR) is calculated using the 2020 CKD-EPI creatinine equation. This equation utilizes serum creatinine, sex, and age as parameters. The creatinine assay has traceable calibration to isotope dilution-mass spectrometry. Refer to KDIGO guidelines for clinical interpretation. In patients with unstable renal function, e.g. those with acute kidney injury, the eGFR may not accurately reflect actual GFR. Performed By: #### 2 777-1, 80122-9, , 3083-07 ####[facility] LABIA [id number] [place] [address] [place] Glucose [Mass/Vol] 125 mg/dL High 74-99 [facility] Comment on above: Order Comment: Katie young Type: BLOOD SPECIMENOrdering Facility: [facility] Address: [address] [place] [address] Result Comment: The [place] [employer] (ADA) provides guidance for cutoff values for fasting glucose and random glucose. The ADA defines fasting as no caloric intake for at least 8 hours. Fasting plasma glucose results between 100 to 125 mg/dL indicate increased risk for diabetes (prediabetes).Fasting plasma glucose results greater than or equal to 126 mg/dL meet the criteria for diagnosis of diabetes. In the absence of unequivocal hyperglycemia, results should be confirmed by repeat testing. In a patient with classic symptoms of hyperglycemia or hyperglycemic crisis, random plasma glucose results greater than or equal to 200 mg/dL meet the criteria for diagnosis of diabetes.Reference: Standards of Medical Care in Diabetes 2016, [place] [employer]. Diabetes Care. 2016.39(Suppl 1). Performed By: #### 2 777-1, 70890-4, 08653-9, 4-1 ####[facility] LABCLIA [id number] [address] [address] [place] Potassium [Moles/Vol] 4.4 mmol/L Normal 3.7-5.1 [facility] Comment on above: Order Comment: Speci men Type: BLOOD SPECIMENOrdering Facility: [facility] Address: [address] [place], [place] [address] Performed By: #### 2 777-1, 12740-3, 69054-7, 4- ####[facility] LABIA [id number] [address] [address] [place] Protein [Mass/Vol] 7.0 g/dL Normal 6.3-8.0 [facility] Comment on above: Order Comment: Speci men Type: BLOOD SPECIMENOrdering Facility: [facility] Address: [address] [place] [address] Performed By: #### 2 777-1, 78045-1, 04613-1, 3083- ####[facility] LABIA [id number] [address] [address] [place] Sodium [Moles/Vol] 136 mmol/L Normal 136-144 [facility] Comment on above: Order Comment: Speci men Type: BLOOD SPECIMENOrdering Facility: [facility] Address: [address] [place], [place] [address] Performed By: #### 2 777-1, 16290-4, 03514-8, 4- ####[facility] LABIA [id number] [address] [address] [place] Urea nitrogen [Mass/Vol] 33 mg/dL High 9-24 [facility] Comment on above: Order Comment: Speci men Type: BLOOD SPECIMENOrdering Facility: [facility] Address: [address] [place], [place] [address] Performed By: #### 2 777-1, 34578-1, 31481-1, 3084-1 ####[facility] LABCLIA [id number] [place] [address] [place] HISTORY PHYSICALon HISTORY PHYSICAL Normal [facility] IMMUNOGLOBULINS,IGG,IGA,IGMo n 03-30-2025 IgA [Mass/Vol] 292 mg/dL Normal 70-400 [facility] Comment on above: Order Comment: Speci men Type: BLOOD SPECIMENOrdering Facility: [facility] Address: [address] [place] [address] Performed By: #### S ERIMM ####[facility] LABCLIA [id number] [place] [address] [place] IgG [Mass/Vol] 1414 mg/dL Normal 700-1600 [facility] Comment on above: Order Comment: Speci men Type: BLOOD SPECIMENOrdering Facility: [facility] Address: [address] [place] [address] Performed By: #### S ERIMM ####[facility] LABCLIA [id number] [place] [address] [place] IgM [Mass/Vol] 74 mg/dL Normal 40-230 [facility] Comment on above: Order Comment: Speci men Type: BLOOD SPECIMENOrdering Facility: [facility] Address: [address] [place] [address] Performed By: #### S ERIMM ####[facility] LABCLIA [id number] [place] [id number] [place] KAPPA/FLAHERTY,FREE,SERon 2024 Immunoglobulin light chains.kappa.free (S) [Mass/Vol] 88.0 mg/L High 3.3-19.4 [facility] Comment on above: Order Comment: Speci men Type: BLOOD SPECIMENOrdering Facility: [facility] Address: [address] [place] [address] Result Comment: Rare ly, increased serum free light chains levels may not be detected or accurately quantified due to prozone phenomenon or in high viscosity samples using this immunoturbidimetric assay. Correlation with other laboratory results and clinical findings is recommended.The [place] Free Light Chain was performed using the Binding Site Optilite immunoturbidimetric method. Result obtained with different assay methods or kits cannot be used interchangeably. Performed By: #### K LFRS ####[facility] LABCLIA [id number] [place] [address] [place] Immunoglobulin light chains.kappa/Immunog lobulin light chains.lambda (S) [Mass ratio] 1.25 Normal 0.26-1.65 [facility] Comment on above: Order Comment: Speci men Type: BLOOD SPECIMENOrdering Facility: [facility] Address: [address] [place] [address] Performed By: #### K LFRS ####[facility] LABCLIA [id number] [place] [address] [place] Immunoglobulin light chains.lambda.free [Mass/Vol] 70.2 mg/L High 5.7-26.3 [facility] Comment on above: Order Comment: Speci men Type: BLOOD SPECIMENOrdering Facility: [facility] Address: [address] [place] [address] Result Comment: Rare ly, increased serum free light chains levels may not be detected or accurately quantified due to prozone phenomenon or in high viscosity samples using this immunoturbidimetric assay. Correlation with other laboratory results and clinical findings is recommended.The [place] Free Light Chain was performed using the Binding Site Optilite immunoturbidimetric method. Result obtained with different assay methods or kits cannot be used interchangeably. Performed By: #### K LFRS ####[facility] LABCLIA [id number] [place] [address] [place] LDH SerPl-cCncon 03-30-2025 LDH [Catalytic activity/Vol] 308 U/L High 135-225 [facility] Comment on above: Order Comment: Speci men Type: BLOOD SPECIMENOrdering Facility: [facility] Address: [address] [place] [address] Performed By: #### 2 532-0, 288-2 ####[facility] LABCLIA [id number] [place] [address] [place] Magnesium SerPl-mCncon 03-30 Magnesium [Mass/Vol] 2.0 mg/dL Normal 1.7-2.3 [facility] Comment on above: Order Comment: Speci men Type: BLOOD SPECIMENOrdering Facility: [facility] Address: [address] [place] [address] Performed By: #### 2 777-1, 20966-2, 70837-3, 3084-1 ####[facility] LABCLIA [id number] [place] [address] [place] Phosphate SerPl-mCncon 03-30 Phosphate [Mass/Vol] 4.0 mg/dL Normal 2.7-4.8 [facility] Comment on above: Order Comment: Speci men Type: BLOOD SPECIMENOrdering Facility: [facility] Address: [address] [place] [address] Performed By: #### 2 777-1, 59588-7, 41067-1, 4-1 ####[facility] LABCLIA [id number] [place] [address] [place] Prot SerPl-mCncon 03-30-2025 Protein [Mass/Vol] 6.5 g/dL Normal 6.3-8.0 [facility] Comment on above: Order Comment: Speci men Type: BLOOD SPECIMENOrdering Facility: [facility] Address: [address] [place] [address] Performed By: #### 2 532-0, 2885-2 ####[facility] LABCLIA [id number] [place] [id number] [place] URINALYSIS, REFLEX MICROSCOP ICon 03-30-2025 Bacteria LM.HPF (Urine sed) [#/Area] Negative Normal Negative [facility] Comment on above: Order Comment: Speci men Type: URINE SPECIMENOrdering Facility: [facility] Address: [address] [place] [address] Performed By: #### L [id number] ####[facility] LABCLIA [id number] [facility] [place] [address] [place] Bilirubin Ql (U) Negative Normal Negative [facility] Comment on above: Order Comment: Speci men Type: URINE SPECIMENOrdering Facility: [facility] Address: [address] [place] [address] Performed By: #### L [id number] ####[facility] LABCLIA [id number] [place] [address] [place] Clarity (Unsp spec) Clear Normal Clear [facility] Comment on above: Order Comment: Speci men Type: URINE SPECIMENOrdering Facility: [facility] Address: [address] [place] [address] Performed By: #### L [id number] ####[facility] LABCLIA [id number] [place] [address] [place] Color (U) Yellow Normal Yellow [facility] Comment on above: Order Comment: Speci men Type: URINE SPECIMENOrdering Facility: [facility] Address: [address] [place] [address] Performed By: #### L [id number] ####[facility] LABCLIA [id number] [place] [id number] [place] Epithelial cells LM.HPF (Urine sed) [#/Area] None Seen Normal [facility] Comment on above: Order Comment: Speci men Type: URINE SPECIMENOrdering Facility: [facility] Address: [address] [place] [address] Performed By: #### L [id number] ####[facility] LABCLIA [id number] [address] [place] [address] [place] Glucose Test strip (U) [Mass/Vol] Negative Normal Negative [facility] Comment on above: Order Comment: Speci men Type: URINE SPECIMENOrdering Facility: [facility] Address: [address] [place] [address] Performed By: #### L [id number] ####[facility] LABCLIA [id number] [place] [id number] [place] Hemoglobin Ql (U) Negative Normal Negative [facility] Comment on above: Order Comment: Speci men Type: URINE SPECIMENOrdering Facility: [facility] Address: [address] [place] [address] Performed By: #### L [id number] ####[facility] LABCLIA [id number] [place] [id number] [place] Hyaline casts (Urine sed) [#/Area] 1-3 /LPF Abnormal 0 /LPF [facility] Comment on above: Order Comment: Speci men Type: URINE SPECIMENOrdering Facility: [facility] Address: [address] [place] [address] Performed By: #### L [id number] ####[facility] LABCLIA [id number] [place] [id number] [place] Ketones Ql (U) Negative Normal Negative [facility] Comment on above: Order Comment: Speci men Type: URINE SPECIMENOrdering Facility: [facility] Address: [address] [place] [address] Performed By: #### L [id number] ####[facility] LABCLIA [id number] [place] [id number] [place] Leukocyte esterase Test strip Ql (U) Negative Normal Negative [facility] Comment on above: Order Comment: Speci men Type: URINE SPECIMENOrdering Facility: [facility] Address: [address] [place] [address] Performed By: #### L [id number] ####[facility] LABCLIA [id number] [place] [address] [place] Nitrite Ql (U) Negative Normal Negative [facility] Comment on above: Order Comment: Speci men Type: URINE SPECIMENOrdering Facility: [facility] Address: [address] [place] [address] Performed By: #### L [id number] ####[facility] LABCLIA [id number] [place] [address] [place] pH (U) 5.5 [pH] Normal 5.0-8.0 [facility] Comment on above: Order Comment: Speci men Type: URINE SPECIMENOrdering Facility: [facility] Address: [address] [place] [address] Performed By: #### L [id number] ####[facility] LABIA [id number] [place] [address] [place] Protein (U) [Mass/Vol] 1+ Abnormal Negative [facility] Comment on above: Order Comment: Speci men Type: URINE SPECIMENOrdering Facility: [facility] Address: [address] [place] [address] Performed By: #### L [id number] ####[facility] LABIA [id number] [place] [address] [place] RBC LM.HPF (Urine sed) [#/Area] 0-2 /HPF Normal 0-2 /HPF [facility] Comment on above: Order Comment: Speci men Type: URINE SPECIMENOrdering Facility: [facility] Address: [address] [place] [address] Performed By: #### L [id number] ####[facility] LABCLIA [id number] [place] [address] [place] Specific gravity (U) [Rel density] 1.028 Normal 1.005-1.030 [facility] Comment on above: Order Comment: Speci men Type: URINE SPECIMENOrdering Facility: [facility] Address: [address] [place] [address] Performed By: #### L [id number] ####[facility] [id number] [place] [address] [place] Urobilinogen Ql (U) 0.2 EU/dL Normal 0.2-1.0 EU/dL Cl [facility] Comment on above: Order Comment: Speci men Type: URINE SPECIMENOrdering Facility: [facility] Address: [address] [place] [address] Performed By: #### L [id number] ####[facility] [id number] [place] [address] [place] WBC LM.HPF (Urine sed) [#/Area] 0-5 /HPF Normal 0-5 /HPF [facility] Comment on above: Order Comment: Speci men Type: URINE SPECIMENOrdering Facility: [facility] Address: [address] [place] [address] Performed By: #### L [id number] ####[facility] [id number] [place] [address] [place] Urate SerPl-mCncon 5 Urate [Mass/Vol] 7.7 mg/dL Normal 4.0-8.1 [facility] Comment on above: Order Comment: Speci men Type: BLOOD SPECIMENOrdering Facility: [facility] Address: [address] [place] [address] Performed By: #### 2 777-1, 75148-9, 68467-0, 3084-1 ####[facility] [id number] [place] [address] [place] XR FEMUR 2V AP/LAT LTon 03-21 XR FEMUR 2V AP/LAT LT Normal [facility] XR FEMUR 2V AP/LAT RTon 03-21 XR FEMUR 2V AP/LAT RT Normal [facility] XR KNEE 4V AP/LAT/OBLS BILon 03-30-2025 XR KNEE 4V AP/LAT/OBLS BONNIE Normal [facility] XR PELVIS 3V AP/INLET/OUTLET on 03-30-2025 XR PELVIS 3V AP/INLET/OUTLET Normal [facility] CNPNon 03-29-2025 CNPN Normal [facility] Comprehensive metabolic 2000 panelon 03-29-2025 Albumin [Mass/Vol] 3.4 g/dL Low 3.9-4.9 [facility] Comment on above: Order Comment: Speci men Type: BLOOD SPECIMENOrdering Facility: [facility] Address: [address] [place] [address] Performed By: #### 2 4323-8, ####[facility] LABCLIA [id number] [place] [address] [place] ALP [Catalytic activity/Vol] 72 U/L Normal 38-113 [facility] Comment on above: Order Comment: Speci men Type: BLOOD SPECIMENOrdering Facility: [facility] Address: [address] [place] [address] Performed By: #### 2 4323-8, ####[facility] LABIA [id number] [place] [address] [place] ALT [Catalytic activity/Vol] 37 U/L Normal 10-54 [facility] Comment on above: Order Comment: Speci men Type: BLOOD SPECIMENOrdering Facility: [facility] Address: [address] [place] [id number] Performed By: #### 2 4323-8, ####[facility] LABIA [id number] [place] [id number] [place] Anion gap [Moles/Vol] 16 mmol/L High 8-15 [facility] Comment on above: Order Comment: Speci men Type: BLOOD SPECIMENOrdering Facility: [facility] Address: [address] [place], [place] [address] Performed By: #### 2 4323-8, ####[facility] LABCLIA [id number] [place] [id number] [place] AST [Catalytic activity/Vol] 33 U/L Normal 14-40 [facility] Comment on above: Order Comment: Speci men Type: BLOOD SPECIMENOrdering Facility: [facility] Address: [address] [place] [address] Result Comment: Resu lts may be falsely increased due to interference from hemolysis. Suggest reorder as clinically indicated. Performed By: #### 2 4323-8, ####[facility] LABIA [id number] [place] [address] [place] Bilirubin [Mass/Vol] 0.5 mg/dL Normal 0.2-1.3 [facility] Comment on above: Order Comment: Speci men Type: BLOOD SPECIMENOrdering Facility: [facility] Address: [address] [place] [address] Performed By: #### 2 4323-8, ####[facility] LABIA [id number] [place] [address] [place] Calcium [Mass/Vol] 9.5 mg/dL Normal 8.5-10.2 [facility] Comment on above: Order Comment: Speci men Type: BLOOD SPECIMENOrdering Facility: [facility] Address: [address] [place] [address] Performed By: #### 2 4323-8, ####[facility] LABIA [id number] [place] [id number] [place] Chloride [Moles/Vol] 104 mmol/L Normal 98-107 [facility] Comment on above: Order Comment: Speci men Type: BLOOD SPECIMENOrdering Facility: [facility] Address: [address] [place] [address] Performed By: #### 2 4323-8, ####[facility] LABCLIA [id number] [address] [address] [place] CO2 [Moles/Vol] 16 mmol/L Low 22-30 [facility] Comment on above: Order Comment: Speci men Type: BLOOD SPECIMENOrdering Facility: [facility] Address: [address] [place] [address] Performed By: #### 2 4328, ####[facility] LABIA [id number] [address] [address] [place] Creatinine [Mass/Vol] 1.53 mg/dL High 0.73-1.22 [facility] Comment on above: Order Comment: Speci men Type: BLOOD SPECIMENOrdering Facility: [facility] Address: [address] [place] [address] Performed By: #### 2 43209-25, ####[facility] [id number] [address] [address] [place] eGFRcr SerPlBld CKD-EPI 2020 44 mL/min/1.73m??? Low >=60 [facility] Comment on above: Order Comment: Speci men Type: BLOOD SPECIMENOrdering Facility: [facility] Address: [address] [place] [address] Result Comment: Ling mated Glomerular Filtration Rate (eGFR) is calculated using the 2020 CKD-EPI creatinine equation. This equation utilizes serum creatinine, sex, and age as parameters. The creatinine assay has traceable calibration to isotope dilution-mass spectrometry. Refer to KDIGO guidelines for clinical interpretation. In patients with unstable renal function, e.g. those with acute kidney injury, the eGFR may not accurately reflect actual GFR. Performed By: #### 2 4323-8, ####[facility] LABIA [id number] [address] [place] [address] [place] Glucose [Mass/Vol] 150 mg/dL High 74-99 [facility] Comment on above: Order Comment: Speci men Type: BLOOD SPECIMENOrdering Facility: [facility] Address: [address] [place] [address] Result Comment: The [place] Diabetes Association (ADA) provides guidance for cutoff values for fasting glucose and random glucose. The ADA defines fasting as no caloric intake for at least 8 hours. Fasting plasma glucose results between 100 to 125 mg/dL indicate increased risk for diabetes (prediabetes).Fasting plasma glucose results greater than or equal to 126 mg/dL meet the criteria for diagnosis of diabetes. In the absence of unequivocal hyperglycemia, results should be confirmed by repeat testing. In a patient with classic symptoms of hyperglycemia or hyperglycemic crisis, random plasma glucose results greater than or equal to 200 mg/dL meet the criteria for diagnosis of diabetes.Reference: Standards of Medical Care in Diabetes 2016, [place] [employer]. Diabetes Care. 2016.39(Suppl 1). Performed By: #### 2 4323-8, ####[facility] LABCLIA [id number] [place] [address] [place] Potassium [Moles/Vol] 4.9 mmol/L Normal 3.7-5.1 [facility] Comment on above: Order Comment: Katie young Type: BLOOD SPECIMENOrdering Facility: [facility] Address: [address] [place] [address] Performed By: #### 2 4323-8, ####[facility] LABCLIA [id number] [place] [id number] [place] Protein [Mass/Vol] 7.5 g/dL Normal 6.3-8.0 [facility] Comment on above: Order Comment: Jelenai men Type: BLOOD SPECIMENOrdering Facility: [facility] Address: [address] [place], [place] [address] Performed By: #### 2 4323-8, ####[facility] LABCLIA [id number] [address] [address] [place] Sodium [Moles/Vol] 136 mmol/L Normal 136-144 [facility] Comment on above: Order Comment: Speci men Type: BLOOD SPECIMENOrdering Facility: [facility] Address: [address] [place], [place] [address] Performed By: #### 2 4323-8, ####[facility] LABCLIA [id number] [address] [address] [place] Urea nitrogen [Mass/Vol] 32 mg/dL High 9-24 [facility] Comment on above: Order Comment: Speci men Type: BLOOD SPECIMENOrdering Facility: [facility] Address: [address] [place] [address] Performed By: #### 2 4323-8, ####[facility] LABCLIA [id number] [address] [address] [place] ED NOTEon 03-29-2025 ED NOTE HNO ID: [id number] Author: PAIGE MCCLAIN, CT Service: ? Author Type: Clinical Flame Cutting Supervisor Type: ED Notes Filed: 03/29/2025 19:37 Note Text: Pt declined updating vs Normal [facility] ED Triage Noteon 03-29-2025 ED Triage Note Normal [facility] Magnesium SerPl-mCncon 03-29 Magnesium [Mass/Vol] 2.0 mg/dL Normal 1.7-2.3 [facility] Comment on above: Order Comment: Speci men Type: BLOOD SPECIMENOrdering Facility: [facility] Address: [address] [place], [place] [address] Performed By: #### 2 4323-8, ####[facility] LABCLIA [id number] [place] [id number] [place] CNPNon 03-28-2025 CNPN Normal [facility] CNPNon 03-25-2025 CNPN Normal [facility] CNPNon 03-22-2025 CNPN Normal [facility] POCT AUTO URINALYSISon 03-19 BILIRUBIN, POC Negative Normal [facility] Comment on above: Order Comment: CLIA Number: [id number] Department: [facility] Performed By: #### P [id number] #### [facility] [place] [address], [address] [place] [address] BLOOD URINE, POC Negative Normal Negative [facility] Comment on above: Order Comment: CLIA Number: [id number] Department: [facility] Performed By: #### P [id number] #### [facility] [place] [address], [address] [place] [address] CLARITY, POC Clear Normal Clear [facility] Comment on above: Order Comment: CLIA Number: [id number] Department: [facility] Performed By: #### P [id number] #### [facility] [place] [address], [address] [place] [address] COLOR, POC STRAW Normal Yellow [facility] Comment on above: Order Comment: CLIA Number: [id number] Department: [facility] Performed By: #### P [id number] #### [facility] [place] [address], [address] [place] [address] GLUCOSE URINE, POC Negative Normal Negative [facility] Comment on above: Order Comment: CLIA Number: [id number] Department: [facility] Performed By: #### P [id number] #### [facility] [place] [address], [address] [place] [address] KETONES, POC Negative Normal Negative [facility] Comment on above: Order Comment: CLIA Number: [id number] Department: [facility] Performed By: #### P [id number] #### [facility] [place] [address], [address] [place] [address] LEUKOCYTE EST, POC Negative Normal Negative [facility] Comment on above: Order Comment: CLIA Number: [id number] Department: [facility] Performed By: #### P [id number] #### [facility] [place] [address], [address] [place] [address] NITRITE, POC Negative Normal Negative [facility] Comment on above: Order Comment: CLIA Number: [id number] Department: [facility] Performed By: #### P [id number] #### [facility] [place] [address], [address] [place] [address] PH, POC 5.5 Normal 5.0-8.0 [facility] Comment on above: Order Comment: CLIA Number: [id number] Department: [facility] Performed By: #### P [id number] #### [facility] [place] [address], [address] [place] [address] PROTEIN, POC Negative Normal Negative [facility] Comment on above: Order Comment: CLIA Number: [id number] Department: [facility] Performed By: #### P [id number] #### [facility] [place] [address], [address] [place] [address] SPECIFIC GRAVITY, POC 1.015 Normal 1.001-1.035 [facility] Comment on above: Order Comment: CLIA Number: [id number] Department: [facility] Performed By: #### P [id number] #### [facility] [place] [address], [address] [place] [address] UROBILINOGEN, POC 0.2 E.U./dL Normal 0.2-1.0 [facility] Comment on above: Order Comment: CLIA Number: [id number] Department: [facility] Performed By: #### P [id number] #### [facility] [place] [address] [place] [address] POCT Auto Urinalysis without Microscopyon 03-19-2025 Bilirubin, UA Negative Negative [facility] Blood, UA Negative Negative [facility] Clarity, UA Clear Clear [facility] Color, UA STRAW Yellow [facility] Glucose, UA Negative Negative [facility] Ketones, UA Negative Negative [facility] Leukocytes, UA Negative Negative [facility] Nitrite, UA Negative Negative [facility] pH, UA 5.5 5.0 - 8.0 [facility] Protein, UA Negative Negative [facility] Spec Grav, UA 1.015 1.001 - 1.035 [facility] Urobilinogen, UA 0.2 [facility] CLIA Number: [id number] Department: [facility] URINE CULTURE, ROUTINEon Bacteria identified Cx Nom (U) URINE CULTURE,COMPREHENSIVE Final report Fasting?: Unknown RESULT 1 Comment Mixed urogenital brianna 600 Colonies/mL Performed At: [address] [facility] [address] [id number] John Zabala PhD [id number] Fasting?: Unknown Normal [facility] Comment on above: Order Comment: Print /No Print->Print Release to patient->Immediate Performed By: #### L [id number] #### [facility] , CNPNon 03-16-2025 CNPN Normal [facility] CBC W Auto Differential pane l (Bld)on 03-02-2025 Basophils (Bld) [#/Vol] 0.13 10*3/uL High <0.11 [facility] Comment on above: Order Comment: Speci men Type: BLOOD SPECIMENOrdering Facility: [facility] Address: [address] [place] [address] Performed By: #### 5 7021-8 ####[facility] [id number] [place] [address] [place] Basophils/100 WBC (Bld) 1.6 % Normal [facility] Comment on above: Order Comment: Speci men Type: BLOOD SPECIMENOrdering Facility: [facility] Address: [address] [place] [address] Performed By: #### 5 7021-8 ####[facility]IA [id number] [place] [address] [place] Differential cell count method Nom (Bld) Auto Normal [facility] Comment on above: Order Comment: Speci men Type: BLOOD SPECIMENOrdering Facility: [facility] Address: [address] [place] [address] Performed By: #### 5 7021-8 ####[facility]AMINCLIA [id number] [place] [address] [place] Eosinophils (Bld) [#/Vol] 0.10 10*3/uL Normal <0.46 [facility] Comment on above: Order Comment: Speci men Type: BLOOD SPECIMENOrdering Facility: [facility] Address: [address] [place] [address] Performed By: #### 5 7021-8 ####[facility] [id number] [place] [address] [place] Eosinophils/100 WBC (Bld) 1.3 % Normal [facility] Comment on above: Order Comment: Speci men Type: BLOOD SPECIMENOrdering Facility: [facility] Address: [address] [place] [address] Performed By: #### 5 7021-8 ####[facility] [id number] [place] [address] [place] Erythrocyte distribution width (RBC) [Ratio] 16.1 % High 11.5-15.0 [facility] Comment on above: Order Comment: Speci men Type: BLOOD SPECIMENOrdering Facility: [facility] Address: [address] [place] [address] Performed By: #### 5 7021-8 ####[facility] MIAMINCLI [id number] [place] [address] [place] Hematocrit (Bld) [Volume fraction] 38.9 % Low 39.0-51.0 [facility] Comment on above: Order Comment: Speci men Type: BLOOD SPECIMENOrdering Facility: [facility] Address: [address] [place] [address] Performed By: #### 5 7021-8 ####[facility] MIAMINCLIA [id number] [place] [address] [place] Hemoglobin (Bld) [Mass/Vol] 13.0 g/dL Normal 13.0-17.0 [facility] Comment on above: Order Comment: Speci men Type: BLOOD SPECIMENOrdering Facility: [facility] Address: [address] [place] [address] Performed By: #### 5 7021-8 ####[facility] AZUCENAA [id number] [place] [address] [place] Immature granulocytes (Bld) [#/Vol] 10*3/uL Normal <0.10 [facility] Comment on above: Order Comment: Speci men Type: BLOOD SPECIMENOrdering Facility: [facility] Address: [address] [place] [address] Performed By: #### 5 7021-8 ####[facility] [id number] [place] [address] [place] Immature granulocytes/100 WBC (Bld) 0.3 % Normal [facility] Comment on above: Order Comment: Speci men Type: BLOOD SPECIMENOrdering Facility: [facility] Address: [address] [place] [address] Performed By: #### 5 7021-8 ####[facility] [id number] [place] [address] [place] Lymphocytes (Bld) [#/Vol] 3.16 10*3/uL Normal 1.00-4.00 [facility] Comment on above: Order Comment: Speci men Type: BLOOD SPECIMENOrdering Facility: [facility] Address: [address] [place] [address] Performed By: #### 5 7021-8 ####[facility]ENTER[facility]IA [id number] [place] [address] [place] Lymphocytes/100 WBC (Bld) 39.8 % Normal [facility] Comment on above: Order Comment: Speci men Type: BLOOD SPECIMENOrdering Facility: [facility] Address: [address] [place] [address] Performed By: #### 5 7021-8 ####[facility] MIAMINCLIA [id number] [place] [address] [place] MCH (RBC) [Entitic mass] 30.2 pg Normal 26.0-34.0 [facility] Comment on above: Order Comment: Speci men Type: BLOOD SPECIMENOrdering Facility: [facility] Address: [address] [place] [address] Performed By: #### 5 7021-8 ####[facility] MIAMIINGRIDLIA [id number] [place] [address] [place] MCHC (RBC) [Mass/Vol] 33.4 g/dL Normal 30.5-36.0 [facility] Comment on above: Order Comment: Speci men Type: BLOOD SPECIMENOrdering Facility: [facility] Address: [address] [place] [address] Performed By: #### 5 7021-8 ####[facility] [id number] [place] [address] [place] MCV (RBC) [Entitic vol] 90.5 fL Normal 80.0-100.0 [facility] Comment on above: Order Comment: Speci men Type: BLOOD SPECIMENOrdering Facility: [facility] Address: [address] [place] [address] Performed By: #### 5 7021-8 ####[facility] [id number] [place] [address] [place] Monocytes (Bld) [#/Vol] 1.30 10*3/uL High <0.87 [facility] Comment on above: Order Comment: Speci men Type: BLOOD SPECIMENOrdering Facility: [facility] Address: [address] [place] [address] Performed By: #### 5 7021-8 ####[facility] MIAMINCLI [id number] [place] [address] [place] Monocytes/100 WBC (Bld) 16.4 % Normal [facility] Comment on above: Order Comment: Speci men Type: BLOOD SPECIMENOrdering Facility: [facility] Address: [address] [place] [address] Performed By: #### 5 7021-8 ####[facility] MIAMINCLIA [id number] [place] [address] [place] Neutrophils (Bld) [#/Vol] 3.22 10*3/uL Normal 1.45-7.50 [facility] Comment on above: Order Comment: Speci men Type: BLOOD SPECIMENOrdering Facility: [facility] Address: [address] [place] [address] Performed By: #### 5 7021-8 ####[facility] [id number] [place] [address] [place] Neutrophils/100 WBC (Bld) 40.6 % Normal [facility] Comment on above: Order Comment: Speci men Type: BLOOD SPECIMENOrdering Facility: [facility] Address: [address] [place] [address] Performed By: #### 5 7021-8 ####[facility] [id number] [place] [address] [place] Nucleated RBC (Bld) [#/Vol] 10*3/uL Normal <0.01 [facility] Comment on above: Order Comment: Speci men Type: BLOOD SPECIMENOrdering Facility: [facility] Address: [address] [place] [address] Performed By: #### 5 7021-8 ####[facility] [id number] [place] [address] [place] Nucleated RBC/100 WBC (Bld) [Ratio] 0.0 /100 WBC Normal [facility] Comment on above: Order Comment: Speci men Type: BLOOD SPECIMENOrdering Facility: [facility] Address: [address] [place] [address] Performed By: #### 5 7021-8 ####[facility] JONNATHAN [id number] [place] [address] [place] Platelet mean volume (Bld) [Entitic vol] 9.8 fL Normal 9.0-12.7 [facility] Comment on above: Order Comment: Speci men Type: BLOOD SPECIMENOrdering Facility: [facility] Address: [address] [place] [address] Performed By: #### 5 7021-8 ####[facility] LINDSAYMANCHESTER TOWNSHIPNCANEL [id number] [place] [address] [place] Platelets (Bld) [#/Vol] 221 10*3/uL Normal 150-400 [facility] Comment on above: Order Comment: Speci men Type: BLOOD SPECIMENOrdering Facility: [facility] Address: [address] [place] [address] Performed By: #### 5 7021-8 ####[facility] MIAMINCRAFAELA [id number] [place] [address] [place] RBC (Bld) [#/Vol] 4.30 10*6/uL Normal 4.20-6.00 [facility] Comment on above: Order Comment: Speci men Type: BLOOD SPECIMENOrdering Facility: [facility] Address: [address] [place] [address] Performed By: #### 5 7021-8 ####[facility] MIAMINCLIA [id number] [place] [address] [place] WBC (Bld) [#/Vol] 7.93 10*3/uL Normal 3.70-11.00 [facility] Comment on above: Order Comment: Speci men Type: BLOOD SPECIMENOrdering Facility: [facility] Address: [address] [place] [address] Performed By: #### 5 7021-8 ####[facility] MILLTOWNCLIA [id number] [place] [address] [place] Comprehensive metabolic 2000 panelon 03-02-2025 Albumin [Mass/Vol] 3.6 g/dL Low 3.9-4.9 [facility] Comment on above: Order Comment: Speci men Type: BLOOD SPECIMENOrdering Facility: [facility] Address: [address] [place] [address] Performed By: #### 2 4323-8 ####[facility] MILLTOWNCLIA [id number] [place] [address] [place] ALP [Catalytic activity/Vol] 54 U/L Normal 38-113 [facility] Comment on above: Order Comment: Speci men Type: BLOOD SPECIMENOrdering Facility: [facility] Address: [address] [place] [address] Performed By: #### 2 4323-8 ####[facility] MIAMINCLIA [id number] [address] [place] ALT [Catalytic activity/Vol] 13 U/L Normal 10-54 [facility] Comment on above: Order Comment: Speci men Type: BLOOD SPECIMENOrdering Facility: [facility] Address: [address] [place] [address] Performed By: #### 2 4323-8 ####[facility] MILLTOWNCLIA [id number] [place] [address] [place] Anion gap [Moles/Vol] 11 mmol/L Normal 8-15 [facility] Comment on above: Order Comment: Speci men Type: BLOOD SPECIMENOrdering Facility: [facility] Address: [address] [place] [address] Performed By: #### 2 4323-8 ####[facility] MIAMINCLIA [id number] [place] [address] [place] AST [Catalytic activity/Vol] 13 U/L Low 14-40 [facility] Comment on above: Order Comment: Speci men Type: BLOOD SPECIMENOrdering Facility: [facility] Address: [address] [place] [address] Performed By: #### 2 4323-8 ####[facility] MIAMINCLIA [id number] [place] [address] [place] Bilirubin [Mass/Vol] 0.6 mg/dL Normal 0.2-1.3 [facility] Comment on above: Order Comment: Speci men Type: BLOOD SPECIMENOrdering Facility: [facility] Address: [address] [place] [address] Performed By: #### 2 4323-8 ####[facility] MIAMINCLIA [id number] [place] [address] [place] Calcium [Mass/Vol] 9.3 mg/dL Normal 8.5-10.2 [facility] Comment on above: Order Comment: Speci men Type: BLOOD SPECIMENOrdering Facility: [facility] Address: [address] [place] [address] Performed By: #### 2 4323-8 ####[facility] CENTERLIA [id number] [place] [address] [place] Chloride [Moles/Vol] 106 mmol/L Normal 98-107 [facility] Comment on above: Order Comment: Speci men Type: BLOOD SPECIMENOrdering Facility: [facility] Address: [address] [place] [address] Performed By: #### 2 4323-8 ####[facility] MIAMINCLIA [id number] [place] [address] [place] CO2 [Moles/Vol] 19 mmol/L Low 22-30 [facility] Comment on above: Order Comment: Speci men Type: BLOOD SPECIMENOrdering Facility: [facility] Address: [address] [place] [address] Performed By: #### 2 4323-8 ####[facility] LINDSA[place]MANCHE[place] T[place]NCAN[place] [id number] [place] [address] [place] Creatinine [Mass/Vol] 1.39 mg/dL High 0.73-1.22 [facility] Comment on above: Order Comment: Speci men Type: BLOOD SPECIMENOrdering Facility: [facility] Address: [address] [place] [address] Performed By: #### 2 4323-8 ####[facility] MIAMINCST[facility] [id number] [place] [address] [place] eGFRcr SerPlBld CKD-EPI 2020 49 mL/min/1.73m??? Low >=60 [facility] Comment on above: Order Comment: Speci men Type: BLOOD SPECIMENOrdering Facility: [facility] Address: [address] [place] [address] Result Comment: Ling mated Glomerular Filtration Rate (eGFR) is calculated using the 2020 CKD-EPI creatinine equation. This equation utilizes serum creatinine, sex, and age as parameters. The creatinine assay has traceable calibration to isotope dilution-mass spectrometry. Refer to KDIGO guidelines for clinical interpretation. In patients with unstable renal function, e.g. those with acute kidney injury, the eGFR may not accurately reflect actual GFR. Performed By: #### 2 4323-8 ####[facility] MIAMINCLIA [id number] [place] [address] [place] Glucose [Mass/Vol] 107 mg/dL High 74-99 [facility] Comment on above: Order Comment: Speci men Type: BLOOD SPECIMENOrdering Facility: [facility] Address: [address] [place] [address] Result Comment: The [place] Diabetes Association (ADA) provides guidance for cutoff values for fasting glucose and random glucose. The ADA defines fasting as no caloric intake for at least 8 hours. Fasting plasma glucose results between 100 to 125 mg/dL indicate increased risk for diabetes (prediabetes).Fasting plasma glucose results greater than or equal to 126 mg/dL meet the criteria for diagnosis of diabetes. In the absence of unequivocal hyperglycemia, results should be confirmed by repeat testing. In a patient with classic symptoms of hyperglycemia or hyperglycemic crisis, random plasma glucose results greater than or equal to 200 mg/dL meet the criteria for diagnosis of diabetes.Reference: Standards of Medical Care in Diabetes 2016, [place] [employer] Association. Diabetes Care. 2016.39(Suppl 1). Performed By: #### 2 4323-8 ####[facility] CENTERWMELIA [id number] [place] [address] [place] Potassium [Moles/Vol] 4.3 mmol/L Normal 3.7-5.1 [facility] Comment on above: Order Comment: Speci men Type: BLOOD SPECIMENOrdering Facility: [facility] Address: [address] [place] [address] Performed By: #### 2 4323-8 ####[facility] CENTERLIA [id number] [place] [address] [place] Protein [Mass/Vol] 7.2 g/dL Normal 6.3-8.0 [facility] Comment on above: Order Comment: Speci men Type: BLOOD SPECIMENOrdering Facility: [facility] Address: [address] [place] [address] Performed By: #### 2 4323-8 ####[facility] CENTERLIA [id number] [place] [address] [place] Sodium [Moles/Vol] 136 mmol/L Normal 136-144 [facility] Comment on above: Order Comment: Speci men Type: BLOOD SPECIMENOrdering Facility: [facility] Address: [address] [place] [address] Performed By: #### 2 4323-8 ####[facility]ENTERLIA [id number] [place] [address] [place] Urea nitrogen [Mass/Vol] 33 mg/dL High 9-24 [facility] Comment on above: Order Comment: Speci men Type: BLOOD SPECIMENOrdering Facility: [facility] Address: [address] [place] [address] Performed By: #### 2 4323-8 ####[facility] [id number] [address] IMMUNOFIXATION SCREEN, SERUM on 03-02-2025 MPA RESULT No M protein is identified. Normal No M protein is identified. [facility] Comment on above: Order Comment: Speci men Type: BLOOD SPECIMENOrdering Facility: [facility] Address: [address] [place] [address] Performed By: #### I FESC ####[facility] LABCLIA [id number] [place] [address] [place] STAFF REVIEW (MPA) Reviewed by Mariposa Gallardo M.D., Ph.D Normal [facility] Comment on above: Order Comment: Speci men Type: BLOOD SPECIMENOrdering Facility: [facility] Address: [address] [place] [address] Performed By: #### I FES ####[facility] LABCLIA [id number] [place] [address] [place] IMMUNOGLOBULINS,IGG,IGA,IGMo n 03-02-2025 IgA [Mass/Vol] 289 mg/dL Normal 70-400 [facility] Comment on above: Order Comment: Speci men Type: BLOOD SPECIMENOrdering Facility: [facility] Address: [address] [place] [address] Performed By: #### S ERIMM ####[facility] LABCLIA [id number] [place] [id number] [place] IgG [Mass/Vol] 1443 mg/dL Normal 700-1600 [facility] Comment on above: Order Comment: Speci men Type: BLOOD SPECIMENOrdering Facility: [facility] Address: [address] [place] [address] Performed By: #### S ERIMM ####[facility] LABCLIA [id number] [place] [address] [place] IgM [Mass/Vol] 67 mg/dL Normal 40-230 [facility] Comment on above: Order Comment: Speci men Type: BLOOD SPECIMENOrdering Facility: [facility] Address: [address] [place] [address] Performed By: #### S ERIMM ####[facility] LABCLIA [id number] [place] [address] [place] KAPPA/FLAHERTY,FREE,SERon 2024 Immunoglobulin light chains.kappa.free (S) [Mass/Vol] 82.0 mg/L High 3.3-19.4 [facility] Comment on above: Order Comment: Speci men Type: BLOOD SPECIMENOrdering Facility: [facility] Address: [address] [place] [address] Result Comment: Rare ly, increased serum free light chains levels may not be detected or accurately quantified due to prozone phenomenon or in high viscosity samples using this immunoturbidimetric assay. Correlation with other laboratory results and clinical findings is recommended.The [place] Free Light Chain was performed using the Binding Site Optilite immunoturbidimetric method. Result obtained with different assay methods or kits cannot be used interchangeably. Performed By: #### K LFRS ####[facility] LABCLIA [id number] [place] [address] [place] Immunoglobulin light chains.kappa/Immunog lobulin light chains.lambda (S) [Mass ratio] 1.34 Normal 0.26-1.65 [facility] Comment on above: Order Comment: Speci men Type: BLOOD SPECIMENOrdering Facility: [facility] Address: [address] [place] [address] Performed By: #### K LFRS ####[facility] LABCLIA [id number] [place] [address] [place] Immunoglobulin light chains.lambda.free [Mass/Vol] 61.4 mg/L High 5.7-26.3 [facility] Comment on above: Order Comment: Speci men Type: BLOOD SPECIMENOrdering Facility: [facility] Address: [address] [place] [address] Result Comment: Rare ly, increased serum free light chains levels may not be detected or accurately quantified due to prozone phenomenon or in high viscosity samples using this immunoturbidimetric assay. Correlation with other laboratory results and clinical findings is recommended.The [place] Free Light Chain was performed using the Binding Site Optilite immunoturbidimetric method. Result obtained with different assay methods or kits cannot be used interchangeably. Performed By: #### K LFRS ####[facility] LABCLIA [id number] [place] [address] [place] PROTEIN ELECTROPHORESIS SERU M (P)on 03-02-2025 Albumin [Mass/Vol] 3.29 g/dL Low 3.43-5.41 [facility] Comment on above: Order Comment: Speci men Type: BLOOD SPECIMENOrdering Facility: [facility] Address: [address] [place] [address] Performed By: #### L [id number] ####[facility] LABCLIA [id number] [place] [address] [place] Alpha 1 globulin Elph [Mass/Vol] 0.35 g/dL Normal 0.18-0.43 [facility] Comment on above: Order Comment: Speci men Type: BLOOD SPECIMENOrdering Facility: [facility] Address: [address] [place] [address] Performed By: #### L [id number] ####[facility] LABCLIA [id number] [place] [address] [place] Alpha 2 globulin Elph [Mass/Vol] 0.84 g/dL Normal 0.42-0.98 [facility] Comment on above: Order Comment: Speci men Type: BLOOD SPECIMENOrdering Facility: [facility] Address: [address] [place] [address] Performed By: #### L [id number] ####[facility] LABIA [id number] [address] [address] [place] Beta globulin Elph [Mass/Vol] 0.71 g/dL Normal 0.61-1.17 [facility] Comment on above: Order Comment: Speci men Type: BLOOD SPECIMENOrdering Facility: [facility] Address: [address] [place] [address] Performed By: #### L [id number] ####[facility] LABIA [id number] [place] [address] [place] Gamma globulin Elph [Mass/Vol] 1.31 g/dL Normal 0.53-1.51 [facility] Comment on above: Order Comment: Speci men Type: BLOOD SPECIMENOrdering Facility: [facility] Address: [address] [place] [address] Performed By: #### L [id number] ####[facility] [id number] [place] [address] [place] M-PROTEIN LOCATION Normal [facility] Comment on above: Order Comment: Speci men Type: BLOOD SPECIMENOrdering Facility: [facility] Address: [address] [place] [address] Result Comment: Not Applicable. Performed By: #### L [id number] ####[facility] LABIA [id number] [address] [address] [place] Protein Fractions [Interp] No definitive M protein is identified on protein electrophoresis. Normal No definitive M protein is identified on protein electrophoresi s. [facility] Comment on above: Order Comment: Speci men Type: BLOOD SPECIMENOrdering Facility: [facility] Address: [address] [place] [address] Performed By: #### L [id number] ####[facility] LABCLIA [id number] [place] [address] [place] Protein.monoclonal Elph [Mass/Vol] 0.00 g/dL Normal <=0.00 [facility] Comment on above: Order Comment: Speci men Type: BLOOD SPECIMENOrdering Facility: [facility] Address: [address] [place] [address] Performed By: #### L [id number] ####[facility] LABCLIA [id number] [place] [address] [place] SPE STAFF REVIEW Reviewed by Mariposa Gallardo M.D., Ph.D Normal [facility] Comment on above: Order Comment: Speci men Type: BLOOD SPECIMENOrdering Facility: [facility] Address: [address] [place] [address] Performed By: #### L [id number] ####[facility] LABIA [id number] [place] [address] [place] Prot SerPl-mCncon 03-02-2025 Protein [Mass/Vol] 6.5 g/dL Normal 6.3-8.0 [facility] Comment on above: Order Comment: Speci men Type: BLOOD SPECIMENOrdering Facility: [facility] Address: [address] [place] [address] Performed By: #### 2 885-2 ####[facility] LABIA [id number] [place] [address] [place] CNPNon 02-28-2025 CNPN Normal [facility] CBC + DIFFon 02-24-2025 Baso # 0.02 x10EE3/UL Normal 0.00 - 0.10 [facility] Comment on above: Performed By: #### 2 15512 #### [facility],[address] [place] [address] 07897 Basophils/100 WBC (Bld) 0.3 % Normal 0.0 - 2.0 [facility] Comment on above: Performed By: #### 2 05879 #### [facility],[address] [place] [address] 09703 Basophils/100 WBC (Bld) 1.0 % Normal 0.0 - 2.0 [facility] Comment on above: Performed By: #### 2 58535 #### [facility],[address] [place] [address] 52829 CBC + DIFF Normal [facility] Comment on above: Result Comment: CBC- COMPLETE BLOOD COUNT Performed By: #### 2 52683 #### [facility],[address] [place] [address] 37622 CELL COUNT 100 Normal [facility] Comment on above: Performed By: #### 2 17334 #### [facility],[address] [place] [address] 48547 EO 5.0 % Normal 0.0 - 7.0 [facility] Comment on above: Performed By: #### 2 74479 #### [facility],[address] [place] [address] 15519 EO # 0.16 x10EE3/UL Normal 0.00 - 0.50 [facility] Comment on above: Performed By: #### 2 89203 #### [facility],[address] [place] [address] 59453 Eosinophils/100 WBC (Bld) 3.0 % Normal 0.0 - 7.0 [facility] Comment on above: Performed By: #### 2 21544 #### [facility],[address] [place] [address] 55521 Erythrocyte distribution width (RBC) [Ratio] 16.4 % High 12.0 - 15.6 [facility] Comment on above: Performed By: #### 2 64495 #### [facility],[address] [place] [address] 98717 Hematocrit (Bld) [Volume fraction] 52.1 % High 40.0 - 52.0 [facility] Comment on above: Performed By: #### 2 09765 #### [facility],[address] [place] [address] 89390 Hemoglobin (Bld) [Mass/Vol] 17.6 g/dL High 13.0 - 17.5 [facility] Comment on above: Performed By: #### 2 28094 #### [facility],[address] [place] [address] Lymph # 2.25 x10EE3/UL Normal 0.80 - 2.80 [facility] Comment on above: Performed By: #### 2 02088 #### [facility],[address] [place], [place] [phone] Lymphocytes/100 WBC (Bld) 42.0 % Normal 20.0 - 45.0 [facility] Comment on above: Performed By: #### 2 08102 #### [facility],[address] [place], [place] [phone] Lymphocytes/100 WBC (Bld) 34 % Normal 20 - 45 [facility] Comment on above: Performed By: #### 2 31201 #### [facility],[address] [place], [place] [phone] MANUAL DIFF SEE BELOW Normal [facility] Comment on above: Performed By: #### 2 16360 #### [facility],[address] [place] [address] 90094 MCH (RBC) [Entitic mass] 31 pg Normal 27 - 33 [facility] Comment on above: Performed By: #### 2 19796 #### [facility],[address] [place] [address] 51107 MCHC 34 X10 3 Normal 32 - 36 [facility] Comment on above: Performed By: #### 2 19840 #### [facility],[address] [place] [address] 11347 MCV (RBC) [Entitic vol] 92 fL Normal 81 - 98 [facility] Comment on above: Performed By: #### 2 83534 #### [facility],[address] [place] [address] 11015 Kern # 0.74 x10EE3/UL Normal 0.20 - 1.00 [facility] Comment on above: Performed By: #### 2 88519 #### [facility],[address] [place] [address] 28301 MONOS 17 % High 0 - 10 [facility] Comment on above: Performed By: #### 2 09982 #### [facility],[address] [place] [address] 60621 MONOS % 13.7 % High 0.0 - 10.0 [facility] Comment on above: Performed By: #### 2 34207 #### [facility],[address] [place] [address] 40437 Morphology Ernesto (Bld) [Interp] N/A Normal [facility] Comment on above: Performed By: #### 2 33201 #### [facility],[address] [place] [address] 45263 Neut # 2.19 x10EE3/UL Normal 1.50 - 7.10 [facility] Comment on above: Performed By: #### 2 35688 #### [facility],[address] [place] [address] 90042 Neutrophils/100 WBC (Bld) 40.9 % Low 46.0 - 76.0 [facility] Comment on above: Performed By: #### 2 99104 #### [facility],[address] [place] [address] 47239 PLATELET 114 x10EE3/UL Low 150 - 450 [facility] Comment on above: Performed By: #### 2 47456 #### [facility],[address] [place] [address] 23343 Platelet mean volume (Bld) [Entitic vol] 7.9 fL Normal 6.4 - 10.5 [facility] Comment on above: Result Comment: AUTO MATED DIFFERENTIAL Performed By: #### 2 59805 #### [facility],[address] [place] [address] 28691 RBC 5.69 x 10EE6/UL Normal 4.50 - 6.00 [facility] Comment on above: Performed By: #### 2 59231 #### [facility],[address] [place] [address] 60446 SEGS 43 % Low 46 - 76 [facility] Comment on above: Performed By: #### 2 67884 #### [facility],[address] [place] [address] 31146 WBC 5.4 x 10EE3/UL Normal 4.5 - 10.8 [facility] Comment on above: Performed By: #### 2 08186 #### [facility],[address] [place] [address] 36011 CMP with eGFRon 02-24-2025 AGE 85 years Normal [facility] Comment on above: Performed By: #### 2 37051 #### [facility],[address] [place] [address] 33465 Albumin [Mass/Vol] 3.0 g/dL Low 3.4 - 5.0 [facility] Comment on above: Performed By: #### 2 33946 #### [facility],[address] [place] [address] 07888 Albumin/Globulin [Mass ratio] 0.7 {ratio} Low 0.9 - 1.6 [facility] Comment on above: Performed By: #### 2 42817 #### [facility],[address] [place] [address] 82902 ALK PHOS 50 U/L Normal 46 - 116 [facility] Comment on above: Performed By: #### 2 99950 #### [facility],[address] [place] [address] 08227 ALT [Catalytic activity/Vol] 18 U/L Normal 16 - 63 [facility] Comment on above: Performed By: #### 2 09256 #### [facility],[address] [place] [address] 92659 Anion gap [Moles/Vol] 17 mmol/L Normal 10 - 20 [facility] Comment on above: Performed By: #### 2 65988 #### [facility],[address] [place] [address] 11126 AST [Catalytic activity/Vol] 17 U/L Normal 15 - 37 [facility] Comment on above: Performed By: #### 2 69795 #### [facility],[address] [place] [address] 59491 B/C RATIO 24 ratio Normal 0 - 30 [facility] Comment on above: Performed By: #### 2 14828 #### [facility],[address] [place] [address] 79636 Bilirubin [Mass/Vol] 0.8 mg/dL Normal 0.2 - 1.0 [facility] Comment on above: Performed By: #### 2 64993 #### [facility],[address] [place] [address] 91188 Calcium [Mass/Vol] 9.2 mg/dL Normal 8.5 - 10.1 [facility] Comment on above: Performed By: #### 2 71982 #### [facility],[address] [place] [address] 63585 Chloride [Moles/Vol] 103 mmol/L Normal 98 - 107 [facility] Comment on above: Performed By: #### 2 04989 #### [facility],[address] [place] [address] 12385 CMP with eGFR Normal [facility] Comment on above: Result Comment: COMP REHENSIVE METABOLIC PANEL Performed By: #### 2 66132 #### [facility],[address] [place] [address] 31623 CO2 [Moles/Vol] 21.1 mmol/L Normal 21.0 - 32.0 [facility] Comment on above: Performed By: #### 2 25161 #### [facility],[address] [place] [address] 34283 Creatinine [Mass/Vol] 1.53 mg/dL High 0.70 - 1.30 [facility] Comment on above: Performed By: #### 2 79200 #### [facility],[address] [place] [address] 17981 eGFR 43 ML/MINUTE Low 60 - 999 [facility] Comment on above: Performed By: #### 2 88966 #### [facility],[address] [place] [address] 10096 eGFR(AA) 52 ML/MINUTE Low 60 - 999 [facility] Comment on above: Result Comment: ACCO RDING TO THE NATIONAL KIDNEY DISEASE EDUCATION PROGRAM(NKDE), A NORMAL eGFR IS A VALUE GREATER THAN OR EQUAL TO 60 ML/MIN/1.73 SQ METERS. CHRONIC KIDNEY DISEASE: <60mL/MIN/1.73 SQ METERS KIDNEY FAILURE: <15mL/MIN/1.73 SQ METERS THIS TEST SHOULD ONLY BE USED FOR PATIENTS 18 YEARS OF AGE AND OLDER. Performed By: #### 2 15423 #### [facility],[address] [place] [address] 19078 Globulin (S) [Mass/Vol] 4.5 g/dL High 1.5 - 3.8 [facility] Comment on above: Performed By: #### 2 85296 #### [facility],[address] [place] [address] 39299 Glucose [Mass/Vol] 100 mg/dL Normal 74 - 106 [facility] Comment on above: Performed By: #### 2 25335 #### [facility],[address] [place] [address] 56744 Potassium [Moles/Vol] 4.2 mmol/L Normal 3.5 - 5.1 [facility] Comment on above: Performed By: #### 2 58948 #### [facility],[address] [place] [address] 83086 Protein [Mass/Vol] 7.5 g/dL Normal 6.4 - 8.2 [facility] Comment on above: Performed By: #### 2 12856 #### [facility],[address] [place] [address] 04645 Sodium [Moles/Vol] 137 mmol/L Normal 136 - 145 [facility] Comment on above: Performed By: #### 2 85446 #### [facility],[address] [place] [address] 98573 Urea nitrogen [Mass/Vol] 36 mg/dL High 7 - 18 [facility] Comment on above: Performed By: #### 2 30375 #### [facility],[address] [place], [place] [id number] HEMOGLOBIN A1C (POM)on 02-24 Glucose [Mass/Vol] 125.5 mg/dL High 0.0 - 0.0 [facility] Comment on above: Result Comment: BLDo HEMOGLOBIN A1C REFERENCE RANGESBLDo Suggested Diagnosis HbA1c(%) HbA1C (mmol/mol Diabetic >/=6.5 >/=48 Prediabetes 5.7 - 6.4 39 - 47 Normal <5.7 <39 Performed By: #### 2 04636 #### [facility],[address] [place] [address] 02941 HbA1c (Bld) [Mass fraction] 6.0 % Normal 0.0 - 6.5 [facility] Comment on above: Performed By: #### 2 10209 #### [facility],[address] [place] [address] 76718 LIPID PROFILEon 02-24-2025 Cholesterol [Mass/Vol] 109 mg/dL Normal 0 - 240 [facility] Comment on above: Performed By: #### 2 71507 #### [facility],[address] [place] [address] 94585 Cholesterol in HDL [Mass/Vol] 52 mg/dL Normal 40 - 60 [facility] Comment on above: Performed By: #### 2 83152 #### [facility],[address] [place] [address] 21028 Cholesterol in LDL [Mass/Vol] 44 mg/dL Normal 0 - 129 [facility] Comment on above: Performed By: #### 2 27948 #### [facility],[address] [place] [address] 74841 Cholesterol.total/Ch olesterol in HDL [Mass ratio] 2.1 {ratio} Normal 0.0 - 5.0 [facility] Comment on above: Performed By: #### 2 23747 #### [facility],[address] [place] [address] 68069 Lipid 1996 panel Normal [facility] Comment on above: Result Comment: LIPI D PROFILE Performed By: #### 2 84137 #### [facility],[address] [place] [address] 97838 Triglyceride [Mass/Vol] 66 mg/dL Normal 0 - 150 [facility] Comment on above: Performed By: #### 2 07587 #### [facility],[address] [place] [address] 50207 TSHon 02-24-2025 TSH Qn 2.85 m[IU]/L Normal 0.35 - 3.74 [facility] Comment on above: Performed By: #### 2 66246 #### [facility],[address] [place] [address] 44802 URINE MICROALBUMIN W/CREATIN INE, RANDOMon 02-24-2025 CREATININE UR 153.58 mg/dl Normal [facility] Comment on above: Performed By: #### 2 10189 #### [facility],[address] [place] [address] 88164 MICROALBUMIN UR 1.9 mg/dL Normal 0.1 - 25.1 [facility] Comment on above: Performed By: #### 2 94758 #### [facility],[address] [place] [address] UACR 12 mg/g Normal [facility] Comment on above: Performed By: #### 2 41589 #### [facility],[address] [id number] CBC W Auto Differential pane l (Bld)on 02-22-2025 Basophils (Bld) [#/Vol] 0.13 10*3/uL High <0.11 [facility] Comment on above: Order Comment: Speci men Type: BLOOD SPECIMENOrdering Facility: [facility] Address: [address] [place] [address] Performed By: #### 5 7021-8 ####[facility] [id number] [place] [address] [place] Basophils/100 WBC (Bld) 1.5 % Normal [facility] Comment on above: Order Comment: Speci men Type: BLOOD SPECIMENOrdering Facility: [facility] Address: [address] [place] [address] Performed By: #### 5 7021-8 ####[facility] [place] [id number] [place] [address] [place] Differential cell count method Nom (Bld) Auto Normal [facility] Comment on above: Order Comment: Speci men Type: BLOOD SPECIMENOrdering Facility: [facility] Address: [address] [place] [address] Performed By: #### 5 7021-8 ####[facility] [place] [id number] [place] [address] [place] Eosinophils (Bld) [#/Vol] 0.28 10*3/uL Normal <0.46 [facility] Comment on above: Order Comment: Speci men Type: BLOOD SPECIMENOrdering Facility: [facility] Address: [address] [place] [address] Performed By: #### 5 7021-8 ####[facility] [id number] [place] [address] [place] Eosinophils/100 WBC (Bld) 3.3 % Normal [facility] Comment on above: Order Comment: Speci men Type: BLOOD SPECIMENOrdering Facility: [facility] Address: [address] [place] [address] Performed By: #### 5 7021-8 ####[facility] [id number] [place] [address] [place] Erythrocyte distribution width (RBC) [Ratio] 15.7 % High 11.5-15.0 [facility] Comment on above: Order Comment: Speci men Type: BLOOD SPECIMENOrdering Facility: [facility] Address: [address] [place] [address] Performed By: #### 5 7021-8 ####[facility] [place] [id number] [place] [address] [place] Hematocrit (Bld) [Volume fraction] 41.2 % Normal 39.0-51.0 [facility] Comment on above: Order Comment: Speci men Type: BLOOD SPECIMENOrdering Facility: [facility] Address: [address] [place] [address] Performed By: #### 5 7021-8 ####[facility] [id number] [place] [address] [place] Hemoglobin (Bld) [Mass/Vol] 13.4 g/dL Normal 13.0-17.0 [facility] Comment on above: Order Comment: Speci men Type: BLOOD SPECIMENOrdering Facility: [facility] Address: [address] [place] [address] Performed By: #### 5 7021-8 ####[facility] [id number] [place] [address] [place] Immature granulocytes (Bld) [#/Vol] 0.03 10*3/uL Normal <0.10 [facility] Comment on above: Order Comment: Speci men Type: BLOOD SPECIMENOrdering Facility: [facility] Address: [address] [place] [address] Performed By: #### 5 7021-8 ####[facility] [place] [id number] [place] [address] STATES [facility] Immature granulocytes/100 WBC (Bld) 0.4 % Normal [facility] Comment on above: Order Comment: Speci men Type: BLOOD SPECIMENOrdering Facility: [facility] Address: [address] [place] [address] Performed By: #### 5 7021-8 ####[facility] [id number] [place] [address] [place] Lymphocytes (Bld) [#/Vol] 2.81 10*3/uL Normal 1.00-4.00 [facility] Comment on above: Order Comment: Speci men Type: BLOOD SPECIMENOrdering Facility: [facility] Address: [address] [place] [address] Performed By: #### 5 7021-8 ####[facility] [place] [id number] [place] [address] [place] Lymphocytes/100 WBC (Bld) 33.1 % Normal [facility] Comment on above: Order Comment: Speci men Type: BLOOD SPECIMENOrdering Facility: [facility] Address: [address] [place] [address] Performed By: #### 5 7021-8 ####[facility] [place] [id number] [place] [address] [place] MCH (RBC) [Entitic mass] 29.8 pg Normal 26.0-34.0 [facility] Comment on above: Order Comment: Speci men Type: BLOOD SPECIMENOrdering Facility: [facility] Address: [address] [place] [address] Performed By: #### 5 7021-8 ####[facility] [id number] [place] [address] [place] MCHC (RBC) [Mass/Vol] 32.5 g/dL Normal 30.5-36.0 [facility] Comment on above: Order Comment: Speci men Type: BLOOD SPECIMENOrdering Facility: [facility] Address: [address] [place] [address] Performed By: #### 5 7021-8 ####[facility] [id number] [place] [address] [place] MCV (RBC) [Entitic vol] 91.6 fL Normal 80.0-100.0 [facility] Comment on above: Order Comment: Speci men Type: BLOOD SPECIMENOrdering Facility: [facility] Address: [address] [place] [address] Performed By: #### 5 7021-8 ####[facility] [id number] [place] [address] [place] Monocytes (Bld) [#/Vol] 1.42 10*3/uL High <0.87 [facility] Comment on above: Order Comment: Speci men Type: BLOOD SPECIMENOrdering Facility: [facility] Address: [address] [place] [address] Performed By: #### 5 7021-8 ####[facility] [id number] [place] [address] [place] Monocytes/100 WBC (Bld) 16.7 % Normal [facility] Comment on above: Order Comment: Speci men Type: BLOOD SPECIMENOrdering Facility: [facility] Address: [address] [place] [address] Performed By: #### 5 7021-8 ####[facility] [id number] [place] [address] [place] Neutrophils (Bld) [#/Vol] 3.81 10*3/uL Normal 1.45-7.50 [facility] Comment on above: Order Comment: Speci men Type: BLOOD SPECIMENOrdering Facility: [facility] Address: [address] [place] [address] Performed By: #### 5 7021-8 ####[facility] [id number] [place] [address] [place] Neutrophils/100 WBC (Bld) 45.0 % Normal [facility] Comment on above: Order Comment: Speci men Type: BLOOD SPECIMENOrdering Facility: [facility] Address: [address] [place] [address] Performed By: #### 5 7021-8 ####[facility] [id number] [place] [address] [place] Nucleated RBC (Bld) [#/Vol] 10*3/uL Normal <0.01 [facility] Comment on above: Order Comment: Speci men Type: BLOOD SPECIMENOrdering Facility: [facility] Address: [address] [place] [address] Performed By: #### 5 7021-8 ####[facility] [id number] [place] [address] [place] Nucleated RBC/100 WBC (Bld) [Ratio] 0.0 /100 WBC Normal [facility] Comment on above: Order Comment: Speci men Type: BLOOD SPECIMENOrdering Facility: [facility] Address: [address] [place] [address] Performed By: #### 5 7021-8 ####[facility] [id number] [place] [address] [place] Platelet mean volume (Bld) [Entitic vol] 9.6 fL Normal 9.0-12.7 [facility] Comment on above: Order Comment: Speci men Type: BLOOD SPECIMENOrdering Facility: [facility] Address: [address] [place] [address] Performed By: #### 5 7021-8 ####[facility] [id number] [place] [address] [place] Platelets (Bld) [#/Vol] 251 10*3/uL Normal 150-400 [facility] Comment on above: Order Comment: Speci men Type: BLOOD SPECIMENOrdering Facility: [facility] Address: [address] [place] [address] Performed By: #### 5 7021-8 ####[facility] [id number] [place] [address] [place] RBC (Bld) [#/Vol] 4.50 10*6/uL Normal 4.20-6.00 [facility] Comment on above: Order Comment: Speci men Type: BLOOD SPECIMENOrdering Facility: [facility] Address: [address] [place] [address] Performed By: #### 5 7021-8 ####[facility] [id number] [place] [address] [place] WBC (Bld) [#/Vol] 8.48 10*3/uL Normal 3.70-11.00 [facility] Comment on above: Order Comment: Speci men Type: BLOOD SPECIMENOrdering Facility: [facility] Address: [address] [place] [address] Performed By: #### 5 7021-8 ####[facility] [id number] [place] [address] [place] CNOVSPon 02-22-2025 CNOVSP Normal [facility] Comprehensive metabolic 2000 panelon 02-22-2025 Albumin [Mass/Vol] 3.7 g/dL Low 3.9-4.9 [facility] Comment on above: Order Comment: Speci men Type: BLOOD SPECIMENOrdering Facility: [facility] Address: [address] [place] [address] Performed By: #### 2 4323-8 ####[facility] [id number] [place] [address] [place] ALP [Catalytic activity/Vol] 59 U/L Normal 38-113 [facility] Comment on above: Order Comment: Speci men Type: BLOOD SPECIMENOrdering Facility: [facility] Address: [address] [place] [address] Performed By: #### 2 4323-8 ####[facility] [id number] [place] [address] [place] ALT [Catalytic activity/Vol] 10 U/L Normal 10-54 [facility] Comment on above: Order Comment: Speci men Type: BLOOD SPECIMENOrdering Facility: [facility] Address: [address] [place] [address] Performed By: #### 2 4323-8 ####[facility] [id number] [place] [address] [place] Anion gap [Moles/Vol] 11 mmol/L Normal 8-15 [facility] Comment on above: Order Comment: Speci men Type: BLOOD SPECIMENOrdering Facility: [facility] Address: [address] [place] [address] Performed By: #### 2 4323-8 ####[facility] [id number] [place] [address] [place] AST [Catalytic activity/Vol] 14 U/L Normal 14-40 [facility] Comment on above: Order Comment: Speci men Type: BLOOD SPECIMENOrdering Facility: [facility] Address: [address] [place] [address] Performed By: #### 2 4323-8 ####[facility] [id number] [place] [address] [place] Bilirubin [Mass/Vol] 0.4 mg/dL Normal 0.2-1.3 [facility] Comment on above: Order Comment: Speci men Type: BLOOD SPECIMENOrdering Facility: [facility] Address: [address] [place] [address] Performed By: #### 2 4323-8 ####[facility] [place] [id number] [place] [address] [place] Calcium [Mass/Vol] 9.4 mg/dL Normal 8.5-10.2 [facility] Comment on above: Order Comment: Speci men Type: BLOOD SPECIMENOrdering Facility: [facility] Address: [address] [place] [address] Performed By: #### 2 4323-8 ####[facility] [id number] [place] [address] [place] Chloride [Moles/Vol] 107 mmol/L Normal 98-107 [facility] Comment on above: Order Comment: Speci men Type: BLOOD SPECIMENOrdering Facility: [facility] Address: [address] [place] [address] Performed By: #### 2 4323-8 ####[facility] [place] [id number] [place] [address] [place] CO2 [Moles/Vol] 21 mmol/L Low 22-30 [facility] Comment on above: Order Comment: Speci men Type: BLOOD SPECIMENOrdering Facility: [facility] Address: [address] [place] [address] Performed By: #### 2 4323-8 ####[facility] [id number] [place] [address] [place] Creatinine [Mass/Vol] 1.49 mg/dL High 0.73-1.22 [facility] Comment on above: Order Comment: Speci men Type: BLOOD SPECIMENOrdering Facility: [facility] Address: [address] [place], [place] [address] Performed By: #### 2 4323-8 ####[facility] [id number] [address] [place] eGFRcr SerPlBld CKD-EPI 2020 45 mL/min/1.73m??? Low >=60 [facility] Comment on above: Order Comment: Katie young Type: BLOOD SPECIMENOrdering Facility: [facility] Address: [address] [place] [address] Result Comment: Ling mated Glomerular Filtration Rate (eGFR) is calculated using the 2020 CKD-EPI creatinine equation. This equation utilizes serum creatinine, sex, and age as parameters. The creatinine assay has traceable calibration to isotope dilution-mass spectrometry. Refer to KDIGO guidelines for clinical interpretation. In patients with unstable renal function, e.g. those with acute kidney injury, the eGFR may not accurately reflect actual GFR. Performed By: #### 2 4323-8 ####[facility] [id number] [place] [address] [place] Glucose [Mass/Vol] 111 mg/dL High 74-99 [facility] Comment on above: Order Comment: Katie young Type: BLOOD SPECIMENOrdering Facility: [facility] Address: [address] [place] [address] Result Comment: The [place] [employer] (ADA) provides guidance for cutoff values for fasting glucose and random glucose. The ADA defines fasting as no caloric intake for at least 8 hours. Fasting plasma glucose results between 100 to 125 mg/dL indicate increased risk for diabetes (prediabetes).Fasting plasma glucose results greater than or equal to 126 mg/dL meet the criteria for diagnosis of diabetes. In the absence of unequivocal hyperglycemia, results should be confirmed by repeat testing. In a patient with classic symptoms of hyperglycemia or hyperglycemic crisis, random plasma glucose results greater than or equal to 200 mg/dL meet the criteria for diagnosis of diabetes.Reference: Standards of Medical Care in Diabetes 2016, [place] [employer]. Diabetes Care. 2016.39(Suppl 1). Performed By: #### 2 4323-8 ####[facility] [id number] [place] [address] [place] Potassium [Moles/Vol] 4.3 mmol/L Normal 3.7-5.1 [facility] Comment on above: Order Comment: Speci men Type: BLOOD SPECIMENOrdering Facility: [facility] Address: [address] [place] [address] Performed By: #### 2 4323-8 ####[facility] [id number] [place] [address] [place] Protein [Mass/Vol] 7.3 g/dL Normal 6.3-8.0 [facility] Comment on above: Order Comment: Speci men Type: BLOOD SPECIMENOrdering Facility: [facility] Address: [address] [place] [address] Performed By: #### 2 4323-8 ####[facility] [place] [id number] [place] [address] [place] Sodium [Moles/Vol] 139 mmol/L Normal 136-144 [facility] Comment on above: Order Comment: Speci men Type: BLOOD SPECIMENOrdering Facility: [facility] Address: [address] [place] [address] Performed By: #### 2 4323-8 ####[facility] [id number] [place] [address] [place] Urea nitrogen [Mass/Vol] 39 mg/dL High 9-24 [facility] Comment on above: Order Comment: Speci men Type: BLOOD SPECIMENOrdering Facility: [facility] Address: [address] [place] [address] Performed By: #### 2 4323-8 ####[facility] [id number] [place] [address] [place] IMMUNOFIXATION SCREEN, SERUM on 02-22-2025 MPA RESULT No M protein is identified. Normal No M protein is identified. [facility] Comment on above: Order Comment: Speci men Type: BLOOD SPECIMENOrdering Facility: [facility] Address: [address] [place] [address] Performed By: #### I FESC ####[facility] LABCLIA [id number] [place] [id number] [place] STAFF REVIEW (MPA) Reviewed by Dr. Guerita Escobedo MD Normal [facility] Comment on above: Order Comment: Speci men Type: BLOOD SPECIMENOrdering Facility: [facility] Address: [address] [place] [address] Performed By: #### I FES ####[facility] LABCLIA [id number] [place] [address] [place] IMMUNOGLOBULINS,IGG,IGA,IGMo n 02-22-2025 IgA [Mass/Vol] 291 mg/dL Normal 70-400 [facility] Comment on above: Order Comment: Speci men Type: BLOOD SPECIMENOrdering Facility: [facility] Address: [address] [place] [address] Performed By: #### S ERIMM ####[facility] LABIA [id number] [place] [address] [place] IgG [Mass/Vol] 1513 mg/dL Normal 700-1600 [facility] Comment on above: Order Comment: Speci men Type: BLOOD SPECIMENOrdering Facility: [facility] Address: [address] [place] [address] Performed By: #### S ERIMM ####[facility] LABIA [id number] [place] [address] [place] IgM [Mass/Vol] 68 mg/dL Normal 40-230 [facility] Comment on above: Order Comment: Speci men Type: BLOOD SPECIMENOrdering Facility: [facility] Address: [address] [place] [address] Performed By: #### S ERIMM ####[facility] LABIA [id number] [place] [id number] [place] KAPPA/FLAHERTY,FREE,SERon 2024 Immunoglobulin light chains.kappa.free (S) [Mass/Vol] 93.8 mg/L High 3.3-19.4 [facility] Comment on above: Order Comment: Speci men Type: BLOOD SPECIMENOrdering Facility: [facility] Address: [address] [place] [address] Result Comment: Rare ly, increased serum free light chains levels may not be detected or accurately quantified due to prozone phenomenon or in high viscosity samples using this immunoturbidimetric assay. Correlation with other laboratory results and clinical findings is recommended.The [place] Free Light Chain was performed using the Binding Site Optilite immunoturbidimetric method. Result obtained with different assay methods or kits cannot be used interchangeably. Performed By: #### K LFRS ####[facility] LABCLIA [id number] [place] [address] [place] Immunoglobulin light chains.kappa/Immunog lobulin light chains.lambda (S) [Mass ratio] 1.44 Normal 0.26-1.65 [facility] Comment on above: Order Comment: Speci men Type: BLOOD SPECIMENOrdering Facility: [facility] Address: [address] [place] [address] Performed By: #### K LFRS ####[facility] LABIA [id number] [place] [address] [place] Immunoglobulin light chains.lambda.free [Mass/Vol] 65.2 mg/L High 5.7-26.3 [facility] Comment on above: Order Comment: Speci men Type: BLOOD SPECIMENOrdering Facility: [facility] Address: [address] [place] [address] Result Comment: Rare ly, increased serum free light chains levels may not be detected or accurately quantified due to prozone phenomenon or in high viscosity samples using this immunoturbidimetric assay. Correlation with other laboratory results and clinical findings is recommended.The [place] Free Light Chain was performed using the Binding Site Optilite immunoturbidimetric method. Result obtained with different assay methods or kits cannot be used interchangeably. Performed By: #### K LFRS ####[facility] LABCLIA [id number] [place] [address] [place] PROTEIN ELECTROPHORESIS SERU M (P)on 02-22-2025 Albumin [Mass/Vol] 3.53 g/dL Normal 3.43-5.41 [facility] Comment on above: Order Comment: Speci men Type: BLOOD SPECIMENOrdering Facility: [facility] Address: [address] [place] [address] Performed By: #### L [id number] ####[facility] LABIA [id number] [place] [address] [place] Alpha 1 globulin Elph [Mass/Vol] 0.36 g/dL Normal 0.18-0.43 [facility] Comment on above: Order Comment: Speci men Type: BLOOD SPECIMENOrdering Facility: [facility] Address: [address] [place] [address] Performed By: #### L [id number] ####[facility] LABIA [id number] [place] [address] [place] Alpha 2 globulin Elph [Mass/Vol] 0.88 g/dL Normal 0.42-0.98 [facility] Comment on above: Order Comment: Speci men Type: BLOOD SPECIMENOrdering Facility: [facility] Address: [address] [place] [address] Performed By: #### L [id number] ####[facility] LABIA [id number] [place] [address] [place] Beta globulin Elph [Mass/Vol] 0.77 g/dL Normal 0.61-1.17 [facility] Comment on above: Order Comment: Speci men Type: BLOOD SPECIMENOrdering Facility: [facility] Address: [address] [place] [address] Performed By: #### L [id number] ####[facility] LABCLIA [id number] [place] [address] [place] Gamma globulin Elph [Mass/Vol] 1.36 g/dL Normal 0.53-1.51 [facility] Comment on above: Order Comment: Speci men Type: BLOOD SPECIMENOrdering Facility: [facility] Address: [address] [place] [address] Performed By: #### L [id number] ####[facility] LABCLIA [id number] [address] [address] [place] M-PROTEIN LOCATION Normal [facility] Comment on above: Order Comment: Speci men Type: BLOOD SPECIMENOrdering Facility: [facility] Address: [address] [place], [place] [address] Result Comment: Not Applicable. Performed By: #### L [id number] ####[facility] LABCLIA [id number] [address] [address] [place] Protein Fractions [Interp] No definitive M protein is identified on protein electrophoresis. Normal No definitive M protein is identified on protein electrophoresi s. [facility] Comment on above: Order Comment: Speci men Type: BLOOD SPECIMENOrdering Facility: [facility] Address: [address] [place], [place] [address] Performed By: #### L [id number] ####[facility] LABCLIA [id number] [place] [id number] [place] Protein.monoclonal Elph [Mass/Vol] 0.00 g/dL Normal <=0.00 [facility] Comment on above: Order Comment: Speci men Type: BLOOD SPECIMENOrdering Facility: [facility] Address: [address] [place], [place] [address] Performed By: #### L [id number] ####[facility] LABCLIA [id number] [place] [id number] [place] SPE STAFF REVIEW Reviewed by Dr. Guerita Escobedo MD [facility] Comment on above: Order Comment: Speci men Type: BLOOD SPECIMENOrdering Facility: [facility] Address: [address] [place] [address] Performed By: #### L [id number] ####[facility] LABCLIA [id number] [place] [address] [place] Prot SerPl-mCncon 02-22-2025 Protein [Mass/Vol] 6.9 g/dL Normal 6.3-8.0 [facility] Comment on above: Order Comment: Speci men Type: BLOOD SPECIMENOrdering Facility: [facility] Address: [address] [place] [address] Performed By: #### 2 885-2 ####[facility] LABIA [id number] [place] [address] [place] Urinalysis complete panel (U )on 02-22-2025 Bacteria LM.HPF (Urine sed) [#/Area] Negative Normal Negative [facility] Comment on above: Order Comment: Speci men Type: URINE SPECIMENOrdering Facility: [facility] Address: [address] [place] [address] Performed By: #### 2 4356-8 ####[facility] LABIA [id number] [place] [address] [place] Bilirubin Ql (U) Negative Normal Negative [facility] Comment on above: Order Comment: Speci men Type: URINE SPECIMENOrdering Facility: [facility] Address: [address] [place] [address] Performed By: #### 2 4356-8 ####[facility] LABIA [id number] [place] [address] [place] Clarity (Unsp spec) Clear Normal Clear [facility] Comment on above: Order Comment: Speci men Type: URINE SPECIMENOrdering Facility: [facility] Address: [address] [place] [address] Performed By: #### 2 4356-8 ####[facility] LABIA [id number] [place] [address] [place] Color (U) Yellow Normal Yellow [facility] Comment on above: Order Comment: Speci men Type: URINE SPECIMENOrdering Facility: [facility] Address: [address] [place] [address] Performed By: #### 2 4356-8 ####[facility] LABCLIA [id number] [address] [place] [address] [place] Epithelial cells LM.HPF (Urine sed) [#/Area] None Seen Normal [facility] Comment on above: Order Comment: Speci men Type: URINE SPECIMENOrdering Facility: [facility] Address: [address] [place] [address] Performed By: #### 2 4356-8 ####[facility] LABCLIA [id number] [address], [facility] [place] Glucose Test strip (U) [Mass/Vol] Negative Normal Negative [facility] Comment on above: Order Comment: Speci men Type: URINE SPECIMENOrdering Facility: [facility] Address: [address] [place] [address] Performed By: #### 2 4356-8 ####[facility] LABCLIA [id number] [place] [id number] [place] Hemoglobin Ql (U) Negative Normal Negative [facility] Comment on above: Order Comment: Speci men Type: URINE SPECIMENOrdering Facility: [facility] Address: [address] [place] [address] Performed By: #### 2 4356-8 ####[facility] LABCLIA [id number] [address] [place] [address] [place] Hyaline casts (Urine sed) [#/Area] 4-10 /LPF Abnormal 0 /LPF [facility] Comment on above: Order Comment: Speci men Type: URINE SPECIMENOrdering Facility: [facility] Address: [address] [place] [address] Performed By: #### 2 4356-8 ####[facility] LABCLIA [id number] [address] [place] [address] [place] Ketones Ql (U) Negative Normal Negative [facility] Comment on above: Order Comment: Speci men Type: URINE SPECIMENOrdering Facility: [facility] Address: [address] [place] [address] Performed By: #### 2 4356-8 ####[facility] LABCLIA [id number] [address], [facility]95 [place] Leukocyte esterase Test strip Ql (U) Trace Abnormal Negative [facility] Comment on above: Order Comment: Speci men Type: URINE SPECIMENOrdering Facility: [facility] Address: [address] [place] [address] Performed By: #### 2 4356-8 ####[facility] LABCLIA [id number] [place] [address] [place] Nitrite Ql (U) Negative Normal Negative [facility] Comment on above: Order Comment: Speci men Type: URINE SPECIMENOrdering Facility: [facility] Address: [address] [place] [address] Performed By: #### 2 4356-8 ####[facility] LABCLIA [id number] [address], [facility]95 [place] pH (U) 5.5 [pH] Normal 5.0-8.0 [facility] Comment on above: Order Comment: Speci men Type: URINE SPECIMENOrdering Facility: [facility] Address: [address] [place] [address] Performed By: #### 2 4356-8 ####[facility] LABCLIA [id number] [place] [id number] [place] Protein (U) [Mass/Vol] Trace Abnormal Negative [facility] Comment on above: Order Comment: Speci men Type: URINE SPECIMENOrdering Facility: [facility] Address: [address] [place] [address] Performed By: #### 2 4356-8 ####[facility] LABIA [id number] [place] [address] [place] RBC LM.HPF (Urine sed) [#/Area] 0-2 /HPF Normal 0-2 /HPF [facility] Comment on above: Order Comment: Speci men Type: URINE SPECIMENOrdering Facility: [facility] Address: [address] [place] [address] Performed By: #### 2 4356-8 ####[facility] LABIA [id number] [place] [address] [place] Specific gravity (U) [Rel density] 1.027 Normal 1.005-1.030 [facility] Comment on above: Order Comment: Speci men Type: URINE SPECIMENOrdering Facility: [facility] Address: [address] [place] [address] Performed By: #### 2 4356-8 ####[facility] [id number] [place] [address] [place] Urobilinogen Ql (U) 0.2 EU/dL Normal 0.2-1.0 EU/dL [facility] Comment on above: Order Comment: Speci men Type: URINE SPECIMENOrdering Facility: [facility] Address: [address] [place] [address] Performed By: #### 2 4356-8 ####[facility] LABIA [id number] [place] [address] [place] WBC LM.HPF (Urine sed) [#/Area] 0-5 /HPF Normal 0-5 /HPF [facility] Comment on above: Order Comment: Speci men Type: URINE SPECIMENOrdering Facility: [facility] Address: [address] [place] [address] Performed By: #### 2 4356-8 ####[facility] LABIA [id number] [place] [address] [place] XR KNEE 4V AP/PA BOTH+LAT/ME R RTon 01-06-2025 XR KNEE 4V AP/PA BOTH+LAT/NAYE RT Normal [facility] CT HIP WO IVCON RTon 025 CT HIP WO IVCON RT * * *Final Report* * * DATE OF EXAM: Dec 16 2024 10:15AM [facility] [place] [address] [place] CT HIP WO IVCON RT / PROCEDURE REASON: 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) * * * * Physician Interpretation * * * * EXAMINATION: CT HIP WO IVCON RT CLINICAL INDICATION: Multiple myeloma with right hip pain and known lesions most prominent in the acetabulum with possible pathologic fracture of the acetabulum. COMPARISON: MRI pelvis and right hip 12/10/2024. TECHNIQUE: Axial CT images were obtained of the right hip without intravenous contrast. Coronal and sagittal reformatted images were performed. CT Radiation dose: Integrated Dose-length product (DLP) for this visit = 263.60 mGy*cm. CT Dose Reduction Employed: Automated exposure control (AEC) FINDINGS: The mottled lytic lesion in the right acetabulum extending into the lateral aspect of the superior pubic ramus and superior aspect of the ischium and partially into the right iliac bone is again noted. There is cortical loss scattered around this lesion raising the patient at increased risk for pathologic fracture as conspicuous at the superior pubic ramus and posterior wall of the ischium. No definite pathologic fracture is identified. An additional small lucent lesion in the posterior aspect of the proximal femoral diaphysis at the level of the lesser trochanter causing mild endosteal scalloping (axial series 3, image 148) is again noted. Other lesions in the proximal right femur better assessed on the MRI. No evidence of osteonecrosis. Bony proliferative changes at the right acetabular roof are stable possibly related to osteoporosis versus remote injury. No other significant degenerative changes. Normal alignment in the right hip. No evidence of right hip joint effusion. No gross tendon tear around the right hip. No muscle atrophy. Tiny fat-containing right inguinal hernia. Prostate is prominent measuring 4.7 cm transversely. IMPRESSION: Lytic lesions from known multiple myeloma are redemonstrated better assessed on the MRI but the dominant lesion in the right acetabulum. No definite pathologic fracture in the right acetabulum although evaluation is limited due to the degree of lucency. Night Stocker: GUILLERMO Transcribe Date/Time: Dec 18 2024 8:19A Dictated by : MUSHTAQ DIAZ MD This examination was interpreted and the report reviewed and electronically signed by: MUSHTAQ DIAZ MD on Dec 18 2024 8:35AM EST [id number] [facility] 12-15-2024 CNPN Normal [facility] 12-06-2024 CNPN Normal [facility] CNPNon 11-04-2024 CNPN Normal [facility] CBC W Auto Differential pane l (Bld)on 10-26-2024 Basophils (Bld) [#/Vol] 0.11 10*3/uL High <0.11 [facility] Comment on above: Order Comment: Speci men Type: BLOOD SPECIMENOrdering Facility: [facility] Address: [address] [place] [address] Performed By: #### 5 7021-8 ####[facility] [id number] [place] [address] [place] Basophils/100 WBC (Bld) 1.5 % Normal [facility] Comment on above: Order Comment: Speci men Type: BLOOD SPECIMENOrdering Facility: [facility] Address: [address] [place] [address] Performed By: #### 5 7021-8 ####[facility] [id number] [place] [address] [place] Differential cell count method Nom (Bld) Auto Normal [facility] Comment on above: Order Comment: Speci men Type: BLOOD SPECIMENOrdering Facility: [facility] Address: [address] [place] [address] Performed By: #### 5 7021-8 ####[facility] MIAMINCLIA [id number] [place] [address] [place] Eosinophils (Bld) [#/Vol] 0.14 10*3/uL Normal <0.46 [facility] Comment on above: Order Comment: Speci men Type: BLOOD SPECIMENOrdering Facility: [facility] Address: [address] [place] [address] Performed By: #### 5 7021-8 ####[facility] WENDINCANEL [id number] [place] [address] [place] Eosinophils/100 WBC (Bld) 2.0 % Normal [facility] Comment on above: Order Comment: Speci men Type: BLOOD SPECIMENOrdering Facility: [facility] Address: [address] [place] [address] Performed By: #### 5 7021-8 ####[facility] MIAMINCANEL [id number] [place] [address] [place] Erythrocyte distribution width (RBC) [Ratio] 15.2 % High 11.5-15.0 [facility] Comment on above: Order Comment: Speci men Type: BLOOD SPECIMENOrdering Facility: [facility] Address: [address] [place] [address] Performed By: #### 5 7021-8 ####[facility] MIAMINCRAFAELBoston [id number] [place] [address] [place] Hematocrit (Bld) [Volume fraction] 41.1 % Normal 39.0-51.0 [facility] Comment on above: Order Comment: Speci men Type: BLOOD SPECIMENOrdering Facility: [facility] Address: [address] [place] [address] Performed By: #### 5 7021-8 ####[facility] MIAMIINGRIDLIA [id number] [place] [address] [place] Hemoglobin (Bld) [Mass/Vol] 13.8 g/dL Normal 13.0-17.0 [facility] Comment on above: Order Comment: Speci men Type: BLOOD SPECIMENOrdering Facility: [facility] Address: [address] [place] [address] Performed By: #### 5 7021-8 ####[facility] MILLTOWNCLIA [id number] [place] [address] [place] Immature granulocytes (Bld) [#/Vol] 10*3/uL Normal <0.10 [facility] Comment on above: Order Comment: Speci men Type: BLOOD SPECIMENOrdering Facility: [facility] Address: [address] [place] [address] Performed By: #### 5 7021-8 ####[facility] CENTERWNCLIA [id number] [place] [address] [place] Immature granulocytes/100 WBC (Bld) 0.3 % Normal [facility] Comment on above: Order Comment: Speci men Type: BLOOD SPECIMENOrdering Facility: [facility] Address: [address] [place] [address] Performed By: #### 5 7021-8 ####[facility] CENTERLIA [id number] [place] [address] [place] Lymphocytes (Bld) [#/Vol] 2.30 10*3/uL Normal 1.00-4.00 [facility] Comment on above: Order Comment: Speci men Type: BLOOD SPECIMENOrdering Facility: [facility] Address: [address] [place] [address] Performed By: #### 5 7021-8 ####[facility] MILLWNCLIA [id number] [place] [address] [place] Lymphocytes/100 WBC (Bld) 32.1 % Normal [facility] Comment on above: Order Comment: Speci men Type: BLOOD SPECIMENOrdering Facility: [facility] Address: [address] [place] [address] Performed By: #### 5 7021-8 ####[facility] MIAMINCLIA [id number] [place] [address] [place] MCH (RBC) [Entitic mass] 31.4 pg Normal 26.0-34.0 [facility] Comment on above: Order Comment: Speci men Type: BLOOD SPECIMENOrdering Facility: [facility] Address: [address] [place] [address] Performed By: #### 5 7021-8 ####[facility] MIAMINCST. [facility] [id number] [place] [address] [place] MCHC (RBC) [Mass/Vol] 33.6 g/dL Normal 30.5-36.0 [facility] Comment on above: Order Comment: Speci men Type: BLOOD SPECIMENOrdering Facility: [facility] Address: [address] [place] [address] Performed By: #### 5 7021-8 ####[facility]INCST[facility] [id number] [place] [address] [place] MCV (RBC) [Entitic vol] 93.6 fL Normal 80.0-100.0 [facility] Comment on above: Order Comment: Speci men Type: BLOOD SPECIMENOrdering Facility: [facility] Address: [address] [place] [address] Performed By: #### 5 7021-8 ####[facility] MIAMINCLI [id number] [place] [address] [place] Monocytes (Bld) [#/Vol] 0.76 10*3/uL Normal <0.87 [facility] Comment on above: Order Comment: Speci men Type: BLOOD SPECIMENOrdering Facility: [facility] Address: [address] [place] [address] Performed By: #### 5 7021-8 ####[facility] MIAMINCLIA [id number] [place] [address] [place] Monocytes/100 WBC (Bld) 10.6 % Normal [facility] Comment on above: Order Comment: Speci men Type: BLOOD SPECIMENOrdering Facility: [facility] Address: [address] [place] [address] Performed By: #### 5 7021-8 ####[facility] LINDSAYJAILENELIA [id number] [place] [address] [place] Neutrophils (Bld) [#/Vol] 3.84 10*3/uL Normal 1.45-7.50 [facility] Comment on above: Order Comment: Speci men Type: BLOOD SPECIMENOrdering Facility: [facility] Address: [address] [place] [address] Performed By: #### 5 7021-8 ####[facility] MIAMIINGRIDLIA [id number] [place] [address] [place] Neutrophils/100 WBC (Bld) 53.5 % Normal [facility] Comment on above: Order Comment: Speci men Type: BLOOD SPECIMENOrdering Facility: [facility] Address: [address] [place] [address] Performed By: #### 5 7021-8 ####[facility] CENTERLIA [id number] [place] [address] [place] Nucleated RBC (Bld) [#/Vol] 10*3/uL Normal <0.01 [facility] Comment on above: Order Comment: Speci men Type: BLOOD SPECIMENOrdering Facility: [facility] Address: [address] [place] [address] Performed By: #### 5 7021-8 ####[facility] MIAMINCLIA [id number] [place] [address] [place] Nucleated RBC/100 WBC (Bld) [Ratio] 0.0 /100 WBC Normal [facility] Comment on above: Order Comment: Speci men Type: BLOOD SPECIMENOrdering Facility: [facility] Address: [address] [place] [address] Performed By: #### 5 7021-8 ####[facility] MILLWNCLIA [id number] [place] [address] [place] Platelet mean volume (Bld) [Entitic vol] 10.2 fL Normal 9.0-12.7 [facility] Comment on above: Order Comment: Speci men Type: BLOOD SPECIMENOrdering Facility: [facility] Address: [address] [place] [address] Performed By: #### 5 7021-8 ####[facility] CENTERLIA [id number] [place] [address] [place] Platelets (Bld) [#/Vol] 230 10*3/uL Normal 150-400 [facility] Comment on above: Order Comment: Speci men Type: BLOOD SPECIMENOrdering Facility: [facility] Address: [address] [place] [address] Performed By: #### 5 7021-8 ####[facility] CENTERLIA [id number] [place] [address] [place] RBC (Bld) [#/Vol] 4.39 10*6/uL Normal 4.20-6.00 [facility] Comment on above: Order Comment: Speci men Type: BLOOD SPECIMENOrdering Facility: [facility] Address: [address] [place] [address] Performed By: #### 5 7021-8 ####[facility]ENTERLIA [id number] [place] [address] [place] WBC (Bld) [#/Vol] 7.17 10*3/uL Normal 3.70-11.00 [facility] Comment on above: Order Comment: Speci men Type: BLOOD SPECIMENOrdering Facility: [facility] Address: [address] [place] [address] Performed By: #### 5 7021-8 ####[facility]ENTERLIA [id number] [place] [address] [place] Comprehensive metabolic 2000 panelon 10-26-2024 Albumin [Mass/Vol] 3.8 g/dL Low 3.9-4.9 [facility] Comment on above: Order Comment: Speci men Type: BLOOD SPECIMENOrdering Facility: [facility] Address: [address] [place] [address] Performed By: #### 2 4323-8 ####[facility] MILLWNCLIA [id number] [place] [address] [place] ALP [Catalytic activity/Vol] 62 U/L Normal 38-113 [facility] Comment on above: Order Comment: Speci men Type: BLOOD SPECIMENOrdering Facility: [facility] Address: [address] [place] [address] Performed By: #### 2 4323-8 ####[facility] CENTERWNCLIA [id number] [place] [address] [place] ALT [Catalytic activity/Vol] 10 U/L Normal 10-54 [facility] Comment on above: Order Comment: Speci men Type: BLOOD SPECIMENOrdering Facility: [facility] Address: [address] [place] [address] Performed By: #### 2 4323-8 ####[facility] CENTERWNCLIA [id number] [place] [address] [place] Anion gap [Moles/Vol] 8 mmol/L Normal 8-15 [facility] Comment on above: Order Comment: Speci men Type: BLOOD SPECIMENOrdering Facility: [facility] Address: [address] [place] [address] Performed By: #### 2 4323-8 ####[facility] MILLTOWNCLIA [id number] [place] [address] [place] AST [Catalytic activity/Vol] 14 U/L Normal 14-40 [facility] Comment on above: Order Comment: Speci men Type: BLOOD SPECIMENOrdering Facility: [facility] Address: [address] [place] [address] Performed By: #### 2 4323-8 ####[facility] WENDIKRISTIEA [id number] [place] [address] [place] Bilirubin [Mass/Vol] 0.4 mg/dL Normal 0.2-1.3 [facility] Comment on above: Order Comment: Speci men Type: BLOOD SPECIMENOrdering Facility: [facility] Address: [address] [place] [address] Performed By: #### 2 4323-8 ####[facility] CENTERKAROLINAA [id number] [place] [address] [place] Calcium [Mass/Vol] 9.3 mg/dL Normal 8.5-10.2 [facility] Comment on above: Order Comment: Speci men Type: BLOOD SPECIMENOrdering Facility: [facility] Address: [address] [place] [address] Performed By: #### 2 4323-8 ####[facility] ANTHONY [id number] [place] [address] [place] Chloride [Moles/Vol] 107 mmol/L Normal 98-107 [facility] Comment on above: Order Comment: Speci men Type: BLOOD SPECIMENOrdering Facility: [facility] Address: [address] [place] [address] Performed By: #### 2 4323-8 ####[facility] MIAMINCLIA [id number] [place] [address] [place] CO2 [Moles/Vol] 22 mmol/L Normal 22-30 [facility] Comment on above: Order Comment: Speci men Type: BLOOD SPECIMENOrdering Facility: [facility] Address: [address] [place] [address] Performed By: #### 2 4323-8 ####[facility] MIAMINCLIA [id number] [place] [address] [place] Creatinine [Mass/Vol] 1.78 mg/dL High 0.73-1.22 [facility] Comment on above: Order Comment: Specquang young Type: BLOOD SPECIMENOrdering Facility: [facility] Address: [address] [place] [address] Performed By: #### 2 4323-8 ####[facility] MIAMINCLI [id number] [place] [address] [place] Creatinine and Glomerular filtration rate.predicted panel (S/P/Bld) 37 mL/min/1.73m??? Low >=60 [facility] Comment on above: Order Comment: Katie [facility] Type: BLOOD SPECIMENOrdering Facility: [facility] Address: [address] [place] [address] Result Comment: Ling mated Glomerular Filtration Rate (eGFR) is calculated using the 2020 CKD-EPI creatinine equation. This equation utilizes serum creatinine, sex, and age as parameters. The creatinine assay has traceable calibration to isotope dilution-mass spectrometry. Refer to KDIGO guidelines for clinical interpretation. In patients with unstable renal function, e.g. those with acute kidney injury, the eGFR may not accurately reflect actual GFR. Performed By: #### 2 4323-8 ####[facility]ITALA [id number] [place] [address] [place] Glucose [Mass/Vol] 127 mg/dL High 74-99 [facility] Comment on above: Order Comment: Speci men Type: BLOOD SPECIMENOrdering Facility: [facility] Address: [address] [place] [address] Result Comment: The [place] Diabetes Association (ADA) provides guidance for cutoff values for fasting glucose and random glucose. The ADA defines fasting as no caloric intake for at least 8 hours. Fasting plasma glucose results between 100 to 125 mg/dL indicate increased risk for diabetes (prediabetes).Fasting plasma glucose results greater than or equal to 126 mg/dL meet the criteria for diagnosis of diabetes. In the absence of unequivocal hyperglycemia, results should be confirmed by repeat testing. In a patient with classic symptoms of hyperglycemia or hyperglycemic crisis, random plasma glucose results greater than or equal to 200 mg/dL meet the criteria for diagnosis of diabetes.Reference: Standards of Medical Care in Diabetes 2016, [place] [employer]. Diabetes Care. 2016.39(Suppl 1). Performed By: #### 2 4323-8 ####[facility] MILLTOWINGRIDLIA [id number] [place] [address] [place] Potassium [Moles/Vol] 4.5 mmol/L Normal 3.7-5.1 [facility] Comment on above: Order Comment: Jelenai men Type: BLOOD SPECIMENOrdering Facility: [facility] Address: [address] [place] [address] Performed By: #### 2 4323-8 ####[facility] MIAMIINGRIDLIA [id number] [place] [address] [place] Protein [Mass/Vol] 6.7 g/dL Normal 6.3-8.0 [facility] Comment on above: Order Comment: Katie young Type: BLOOD SPECIMENOrdering Facility: [facility] Address: [address] [place] [address] Performed By: #### 2 4323-8 ####[facility] MIAMIINGRIDLIA [id number] [place] [address] [place] Sodium [Moles/Vol] 137 mmol/L Normal 136-144 [facility] Comment on above: Order Comment: Speci men Type: BLOOD SPECIMENOrdering Facility: [facility] Address: [address] [place] [address] Performed By: #### 2 4323-8 ####[facility] CENTERWNCLIA [id number] [place] [address] [place] Urea nitrogen [Mass/Vol] 21 mg/dL Normal 9-24 [facility] Comment on above: Order Comment: Speci men Type: BLOOD SPECIMENOrdering Facility: [facility] Address: [address] [place] [address] Performed By: #### 2 4323-8 ####[facility] MARYANA DE SANTIAGO [id number] [place] [id number] [place] IMMUNOFIXATION SCREEN, SERUM on 10-26-2024 INTERPRETATION (MPA) Normal [facility] Comment on above: Order Comment: Speci men Type: BLOOD SPECIMENOrdering Facility: [facility] Address: [address] [place] [address] Performed By: #### I FESC ####[facility] LABIA [id number] [place] [address] [place] MPA RESULT A poorly defined reg ion of restricted mobility is present that may represent an M protein. Abnormal No M protein is identified. [facility] Comment on above: Order Comment: Speci men Type: BLOOD SPECIMENOrdering Facility: [facility] Address: [address] [place] [address] Performed By: #### I FESC ####[facility] LABIA [id number] [address] STAFF REVIEW ([facility]) Reviewed by Khoa Guevara MD, Ph.D ([id number]) Normal [facility] Comment on above: Order Comment: Speci men Type: BLOOD SPECIMENOrdering Facility: [facility] Address: [address] [place] [address] Performed By: #### I FESC ####[facility] LABIA [id number] [place] [id number] [place] IMMUNOGLOBULINS,IGG,IGA,IGMo n 10-26-2024 IgA [Mass/Vol] 214 mg/dL Normal 70-400 [facility] Comment on above: Order Comment: Speci men Type: BLOOD SPECIMENOrdering Facility: [facility] Address: [address] [place] [address] Performed By: #### S ERIMM ####[facility] LABCLIA [id number] [place] [address] [place] IgG [Mass/Vol] 1345 mg/dL Normal 700-1600 [facility] Comment on above: Order Comment: Speci men Type: BLOOD SPECIMENOrdering Facility: [facility] Address: [address] [place] [address] Performed By: #### S ERIMM ####[facility] LABCLIA [id number] [place] [address] [place] IgM [Mass/Vol] 39 mg/dL Low 40-230 [facility] Comment on above: Order Comment: Speci men Type: BLOOD SPECIMENOrdering Facility: [facility] Address: [address] [place] [address] Performed By: #### S ERIMM ####[facility] LABCLIA [id number] [place] [address] [place] KAPPA/FLAHERTY,FREE,SERon 2024 Immunoglobulin light chains.kappa.free (S) [Mass/Vol] 58.1 mg/L High 3.3-19.4 [facility] Comment on above: Order Comment: Speci men Type: BLOOD SPECIMENOrdering Facility: [facility] Address: [address] [place] [address] Result Comment: Rare ly, increased serum free light chains levels may not be detected or accurately quantified due to prozone phenomenon or in high viscosity samples using this immunoturbidimetric assay. Correlation with other laboratory results and clinical findings is recommended.The [place] Free Light Chain was performed using the Binding Site Optilite immunoturbidimetric method. Result obtained with different assay methods or kits cannot be used interchangeably. Performed By: #### K LFRS ####[facility] LABCLIA [id number] [place] [address] [place] Immunoglobulin light chains.kappa/Immunog lobulin light chains.lambda (S) [Mass ratio] 1.39 Normal 0.26-1.65 [facility] Comment on above: Order Comment: Speci men Type: BLOOD SPECIMENOrdering Facility: [facility] Address: [address] [place] [address] Performed By: #### K LFRS ####[facility] LABCLIA [id number] [place] [address] [place] Immunoglobulin light chains.lambda.free [Mass/Vol] 41.9 mg/L High 5.7-26.3 [facility] Comment on above: Order Comment: Speci men Type: BLOOD SPECIMENOrdering Facility: [facility] Address: [address] [place] [address] Result Comment: Rare ly, increased serum free light chains levels may not be detected or accurately quantified due to prozone phenomenon or in high viscosity samples using this immunoturbidimetric assay. Correlation with other laboratory results and clinical findings is recommended.The [place] Free Light Chain was performed using the Binding Site Optilite immunoturbidimetric method. Result obtained with different assay methods or kits cannot be used interchangeably. Performed By: #### K LFRS ####[facility] LABCLIA [id number] [place] [id number] [place] PROTEIN ELECTROPHORESIS SERU M (P)on 10-26-2024 Albumin [Mass/Vol] 3.60 g/dL Normal 3.43-5.41 [facility] Comment on above: Order Comment: Speci men Type: BLOOD SPECIMENOrdering Facility: [facility] Address: [address] [place] [address] Performed By: #### L [id number] ####[facility] LABCLIA [id number] [place] [id number] [place] Alpha 1 globulin Elph [Mass/Vol] 0.30 g/dL Normal 0.18-0.43 [facility] Comment on above: Order Comment: Speci men Type: BLOOD SPECIMENOrdering Facility: [facility] Address: [address] [place] [address] Performed By: #### L [id number] ####[facility] LABIA [id number] [place] [address] [place] Alpha 2 globulin Elph [Mass/Vol] 0.60 g/dL Normal 0.42-0.98 [facility] Comment on above: Order Comment: Speci men Type: BLOOD SPECIMENOrdering Facility: [facility] Address: [address] [place] [address] Performed By: #### L [id number] ####[facility] LABIA [id number] [place] [address] [place] Beta globulin Elph [Mass/Vol] 0.74 g/dL Normal 0.61-1.17 [facility] Comment on above: Order Comment: Speci men Type: BLOOD SPECIMENOrdering Facility: [facility] Address: [address] [place] [address] Performed By: #### L [id number] ####[facility] LABIA [id number] [place] [address] [place] Gamma globulin Elph [Mass/Vol] 1.17 g/dL Normal 0.53-1.51 [facility] Comment on above: Order Comment: Speci men Type: BLOOD SPECIMENOrdering Facility: [facility] Address: [address] [place] [address] Performed By: #### L [id number] ####[facility] LABIA [id number] [address] [place] M-PROTEIN LOCATION Normal [facility] Comment on above: Order Comment: Speci men Type: BLOOD SPECIMENOrdering Facility: [facility] Address: [address] [place] [address] Result Comment: Not Applicable. Performed By: #### L [id number] ####[facility] LABIA [id number] [place] [id number] [place] Protein Fractions [Interp] No definitive M protein is identified on protein electrophoresis. Normal No definitive M protein is identified on protein electrophoresi s. [facility] Comment on above: Order Comment: Speci men Type: BLOOD SPECIMENOrdering Facility: [facility] Address: [address] [place] [address] Performed By: #### L [id number] ####[facility] LABCLIA [id number] [place] [address] [place] Protein.monoclonal Elph [Mass/Vol] 0.00 g/dL Normal <=0.00 [facility] Comment on above: Order Comment: Speci men Type: BLOOD SPECIMENOrdering Facility: [facility] Address: [address] [place] [address] Performed By: #### L [id number] ####[facility] LABIA [id number] [place] [address] [place] SPE STAFF REVIEW Reviewed by Khoa Guevara MD, Ph.D ([id number]) Normal [facility] Comment on above: Order Comment: Speci men Type: BLOOD SPECIMENOrdering Facility: [facility] Address: [address] [place] [address] Performed By: #### L [id number] ####[facility] LABIA [id number] [place] [address] [place] Prot SerPl-mCncon 10-26-2024 Protein [Mass/Vol] 6.4 g/dL Normal 6.3-8.0 [facility] Comment on above: Order Comment: Speci men Type: BLOOD SPECIMENOrdering Facility: [facility] Address: [address] [place] [address] Performed By: #### 2 885-2 ####[facility] LABIA [id number] [place] [id number] [place] CNOVon 10-19-2024 CNOV Normal [facility] TSHon 10-15-2024 TSH Qn 3.60 m[IU]/L Normal 0.35 - 3.74 [facility] Comment on above: Performed By: #### 2 [id number] #### [facility],[address] [place] [address] CNPNon 08-10-2024 CNPN Normal [facility] CNCOon 07-27-2024 CNCO Letter Text Normal [facility] CBC W Auto Differential pane l (Bld)on 07-20-2024 Basophils (Bld) [#/Vol] 0.11 10*3/uL High <0.11 [facility] Comment on above: Order Comment: Speci men Type: BLOOD SPECIMENOrdering Facility: [facility] Address: [address] [place] [address] Performed By: #### 5 7021-8 ####[facility] [id number] [place] [address] [place] Basophils/100 WBC (Bld) 1.9 % Normal [facility] Comment on above: Order Comment: Speci men Type: BLOOD SPECIMENOrdering Facility: [facility] Address: [address] [place] [address] Performed By: #### 5 7021-8 ####[facility] [id number] [place] [address] [place] Differential cell count method Nom (Bld) Auto Normal [facility] Comment on above: Order Comment: Speci men Type: BLOOD SPECIMENOrdering Facility: [facility] Address: [address] [place] [address] Performed By: #### 5 7021-8 ####[facility] [id number] [place] [address] [place] Eosinophils (Bld) [#/Vol] 0.20 10*3/uL Normal <0.46 [facility] Comment on above: Order Comment: Speci men Type: BLOOD SPECIMENOrdering Facility: [facility] Address: [address] [place] [address] Performed By: #### 5 7021-8 ####[facility] MILLWNCLIA [id number] [place] [address] [place] Eosinophils/100 WBC (Bld) 3.4 % Normal [facility] Comment on above: Order Comment: Speci men Type: BLOOD SPECIMENOrdering Facility: [facility] Address: [address] [place] [address] Performed By: #### 5 7021-8 ####[facility] MIAMIINGRIDLIA [id number] [place] [address] [place] Erythrocyte distribution width (RBC) [Ratio] 15.6 % High 11.5-15.0 [facility] Comment on above: Order Comment: Speci men Type: BLOOD SPECIMENOrdering Facility: [facility] Address: [address] [place] [address] Performed By: #### 5 7021-8 ####[facility]ENTERLIA [id number] [place] [address] [place] Hematocrit (Bld) [Volume fraction] 40.9 % Normal 39.0-51.0 [facility] Comment on above: Order Comment: Speci men Type: BLOOD SPECIMENOrdering Facility: [facility] Address: [address] [place] [address] Performed By: #### 5 7021-8 ####[facility]ENTERLIA [id number] [place] [address] [place] Hemoglobin (Bld) [Mass/Vol] 13.9 g/dL Normal 13.0-17.0 [facility] Comment on above: Order Comment: Speci men Type: BLOOD SPECIMENOrdering Facility: [facility] Address: [address] [place] [address] Performed By: #### 5 7021-8 ####[facility] MIAMIINGRIDLIA [id number] [place] [address] [place] Immature granulocytes (Bld) [#/Vol] 10*3/uL Normal <0.10 [facility] Comment on above: Order Comment: Speci men Type: BLOOD SPECIMENOrdering Facility: [facility] Address: [address] [place] [address] Performed By: #### 5 7021-8 ####[facility]ENTERLIA [id number] [place] [address] [place] Immature granulocytes/100 WBC (Bld) 0.2 % Normal [facility] Comment on above: Order Comment: Speci men Type: BLOOD SPECIMENOrdering Facility: [facility] Address: [address] [place] [address] Performed By: #### 5 7021-8 ####[facility] [id number] [place] [address] [place] Lymphocytes (Bld) [#/Vol] 2.69 10*3/uL Normal 1.00-4.00 [facility] Comment on above: Order Comment: Speci men Type: BLOOD SPECIMENOrdering Facility: [facility] Address: [address] [place] [address] Performed By: #### 5 7021-8 ####[facility] [id number] [place] [address] [place] Lymphocytes/100 WBC (Bld) 46.4 % Normal [facility] Comment on above: Order Comment: Speci men Type: BLOOD SPECIMENOrdering Facility: [facility] Address: [address] [place] [address] Performed By: #### 5 7021-8 ####[facility]ENTERLI [id number] [place] [address] [place] MCH (RBC) [Entitic mass] 32.2 pg Normal 26.0-34.0 [facility] Comment on above: Order Comment: Speci men Type: BLOOD SPECIMENOrdering Facility: [facility] Address: [address] [place] [address] Performed By: #### 5 7021-8 ####[facility] JONNATHAN [id number] [place] [address] [place] MCHC (RBC) [Mass/Vol] 34.0 g/dL Normal 30.5-36.0 [facility] Comment on above: Order Comment: Speci men Type: BLOOD SPECIMENOrdering Facility: [facility] Address: [address] [place] [address] Performed By: #### 5 7021-8 ####[facility] ANTHONY [id number] [place] [address] [place] MCV (RBC) [Entitic vol] 94.7 fL Normal 80.0-100.0 [facility] Comment on above: Order Comment: Speci men Type: BLOOD SPECIMENOrdering Facility: [facility] Address: [address] [place] [address] Performed By: #### 5 7021-8 ####[facility] MIAMIKRISTIEA [id number] [place] [address] [place] Monocytes (Bld) [#/Vol] 0.68 10*3/uL Normal <0.87 [facility] Comment on above: Order Comment: Speci men Type: BLOOD SPECIMENOrdering Facility: [facility] Address: [address] [place] [address] Performed By: #### 5 7021-8 ####[facility] MIAMINCLIA [id number] [place] [address] [place] Monocytes/100 WBC (Bld) 11.7 % Normal [facility] Comment on above: Order Comment: Speci men Type: BLOOD SPECIMENOrdering Facility: [facility] Address: [address] [place] [address] Performed By: #### 5 7021-8 ####[facility] MILLTOWNCLIA [id number] [place] [address] [place] Neutrophils (Bld) [#/Vol] 2.11 10*3/uL Normal 1.45-7.50 [facility] Comment on above: Order Comment: Speci men Type: BLOOD SPECIMENOrdering Facility: [facility] Address: [address] [place] [address] Performed By: #### 5 7021-8 ####[facility] MIAMINCLIA [id number] [place] [address] [place] Neutrophils/100 WBC (Bld) 36.4 % Normal [facility] Comment on above: Order Comment: Speci men Type: BLOOD SPECIMENOrdering Facility: [facility] Address: [address] [place] [address] Performed By: #### 5 7021-8 ####[facility]ENTERLIA [id number] [place] [address] [place] Nucleated RBC (Bld) [#/Vol] 10*3/uL Normal <0.01 [facility] Comment on above: Order Comment: Speci men Type: BLOOD SPECIMENOrdering Facility: [facility] Address: [address] [place] [address] Performed By: #### 5 7021-8 ####[facility]ENTERWNCLIA [id number] [place] [address] [place] Nucleated RBC/100 WBC (Bld) [Ratio] 0.0 /100 WBC Normal [facility] Comment on above: Order Comment: Speci men Type: BLOOD SPECIMENOrdering Facility: [facility] Address: [address] [place] [address] Performed By: #### 5 7021-8 ####[facility] MIAMINCLIA [id number] [place] [address] [place] Platelet mean volume (Bld) [Entitic vol] 10.1 fL Normal 9.0-12.7 [facility] Comment on above: Order Comment: Speci men Type: BLOOD SPECIMENOrdering Facility: [facility] Address: [address] [place] [address] Performed By: #### 5 7021-8 ####[facility] LINDSAYMANCHESTER TOWNSHIPNCLIA [id number] [place] [address] [place] Platelets (Bld) [#/Vol] 142 10*3/uL Low 150-400 [facility] Comment on above: Order Comment: Speci men Type: BLOOD SPECIMENOrdering Facility: [facility] Address: [address] [place] [address] Performed By: #### 5 7021-8 ####[facility] MIAMINCLIA [id number] [place] [address] [place] RBC (Bld) [#/Vol] 4.32 10*6/uL Normal 4.20-6.00 [facility] Comment on above: Order Comment: Speci men Type: BLOOD SPECIMENOrdering Facility: [facility] Address: [address] [place] [address] Performed By: #### 5 7021-8 ####[facility] MIAMINCLIA [id number] [place] [address] [place] WBC (Bld) [#/Vol] 5.80 10*3/uL Normal 3.70-11.00 [facility] Comment on above: Order Comment: Speci men Type: BLOOD SPECIMENOrdering Facility: [facility] Address: [address] [place] [address] Performed By: #### 5 7021-8 ####[facility]ENTERWNCLIA [id number] [place] [address] [place] Comprehensive metabolic 2000 panelon 07-20-2024 Albumin [Mass/Vol] 3.8 g/dL Low 3.9-4.9 [facility] Comment on above: Order Comment: Speci men Type: BLOOD SPECIMENOrdering Facility: [facility] Address: [address] [place] [address] Performed By: #### 2 4323-8 ####[facility] CENTERWNCLIA [id number] [place] [address] [place] ALP [Catalytic activity/Vol] 61 U/L Normal 38-113 [facility] Comment on above: Order Comment: Speci men Type: BLOOD SPECIMENOrdering Facility: [facility] Address: [address] [place] [address] Performed By: #### 2 4323-8 ####[facility] CENTERLIA [id number] [place] [address] [place] ALT [Catalytic activity/Vol] 14 U/L Normal 10-54 [facility] Comment on above: Order Comment: Speci men Type: BLOOD SPECIMENOrdering Facility: [facility] Address: [address] [place] [address] Performed By: #### 2 4323-8 ####[facility] [id number] [place] [address] [place] Anion gap [Moles/Vol] 10 mmol/L Normal 8-15 [facility] Comment on above: Order Comment: Speci men Type: BLOOD SPECIMENOrdering Facility: [facility] Address: [address] [place] [address] Performed By: #### 2 4323-8 ####[facility] MIAMINCLIA [id number] [place] [address] [place] AST [Catalytic activity/Vol] 15 U/L Normal 14-40 [facility] Comment on above: Order Comment: Speci men Type: BLOOD SPECIMENOrdering Facility: [facility] Address: [address] [place] [address] Performed By: #### 2 4323-8 ####[facility] MARYANA MILLTOWNCLIA [id number] [place] [address] [place] Bilirubin [Mass/Vol] 0.6 mg/dL Normal 0.2-1.3 [facility] Comment on above: Order Comment: Speci men Type: BLOOD SPECIMENOrdering Facility: [facility] Address: [address] [place] [address] Performed By: #### 2 4323-8 ####[facility] MILLTOWNCLIA [id number] [place] [address] [place] Calcium [Mass/Vol] 8.9 mg/dL Normal 8.5-10.2 [facility] Comment on above: Order Comment: Speci men Type: BLOOD SPECIMENOrdering Facility: [facility] Address: [address] [place] [address] Performed By: #### 2 4323-8 ####[facility] CENTERWNCLIA [id number] [place] [address] [place] Chloride [Moles/Vol] 110 mmol/L High 98-107 [facility] Comment on above: Order Comment: Speci men Type: BLOOD SPECIMENOrdering Facility: [facility] Address: [address] [place] [address] Performed By: #### 2 4323-8 ####[facility] MILLTOWNCLIA [id number] [place] [address] [place] CO2 [Moles/Vol] 21 mmol/L Low 22-30 [facility] Comment on above: Order Comment: Speci men Type: BLOOD SPECIMENOrdering Facility: [facility] Address: [address] [place] [address] Performed By: #### 2 4323-8 ####[facility] MILLWNCLIA [id number] [place] [address] [place] Creatinine [Mass/Vol] 1.45 mg/dL High 0.73-1.22 [facility] Comment on above: Order Comment: Katie young Type: BLOOD SPECIMENOrdering Facility: [facility] Address: [address] [place] [address] Performed By: #### 2 4323-8 ####[facility] [id number] [place] [address] [place] Creatinine and Glomerular filtration rate.predicted panel (S/P/Bld) 47 mL/min/1.73m??? Low >=60 [facility] Comment on above: Order Comment: Katie young Type: BLOOD SPECIMENOrdering Facility: [facility] Address: [address] [place] [address] Result Comment: Ling mated Glomerular Filtration Rate (eGFR) is calculated using the 2020 CKD-EPI creatinine equation. This equation utilizes serum creatinine, sex, and age as parameters. The creatinine assay has traceable calibration to isotope dilution-mass spectrometry. Refer to KDIGO guidelines for clinical interpretation. In patients with unstable renal function, e.g. those with acute kidney injury, the eGFR may not accurately reflect actual GFR. Performed By: #### 2 4323-8 ####[facility] [id number] [place] [address] [place] Glucose [Mass/Vol] 113 mg/dL High 74-99 [facility] Comment on above: Order Comment: Katie young Type: BLOOD SPECIMENOrdering Facility: [facility] Address: [address] [place] [address] Result Comment: The [place] Diabetes Association (ADA) provides guidance for cutoff values for fasting glucose and random glucose. The ADA defines fasting as no caloric intake for at least 8 hours. Fasting plasma glucose results between 100 to 125 mg/dL indicate increased risk for diabetes (prediabetes).Fasting plasma glucose results greater than or equal to 126 mg/dL meet the criteria for diagnosis of diabetes. In the absence of unequivocal hyperglycemia, results should be confirmed by repeat testing. In a patient with classic symptoms of hyperglycemia or hyperglycemic crisis, random plasma glucose results greater than or equal to 200 mg/dL meet the criteria for diagnosis of diabetes.Reference: Standards of Medical Care in Diabetes 2016, [place] Diabetes Association. Diabetes Care. 2016.39(Suppl 1). Performed By: #### 2 4323-8 ####[facility] LINDSAYISABEL [id number] [place] [address] [place] Potassium [Moles/Vol] 4.2 mmol/L Normal 3.7-5.1 [facility] Comment on above: Order Comment: Speci men Type: BLOOD SPECIMENOrdering Facility: [facility] Address: [address] [place] [address] Performed By: #### 2 4323-8 ####[facility] MIAMIMARK ANTHONY [id number] [place] [address] [place] Protein [Mass/Vol] 6.5 g/dL Normal 6.3-8.0 [facility] Comment on above: Order Comment: Speci men Type: BLOOD SPECIMENOrdering Facility: [facility] Address: [address] [place] [address] Performed By: #### 2 4323-8 ####[facility]OSPITALBoston [id number] [place] [address] [place] Sodium [Moles/Vol] 141 mmol/L Normal 136-144 [facility] Comment on above: Order Comment: Speci men Type: BLOOD SPECIMENOrdering Facility: [facility] Address: [address] [place] [address] Performed By: #### 2 4323-8 ####[facility]ITALA [id number] [place] [address] [place] Urea nitrogen [Mass/Vol] 21 mg/dL Normal 9-24 [facility] Comment on above: Order Comment: Speci men Type: BLOOD SPECIMENOrdering Facility: [facility] Address: [address] [place] [address] Performed By: #### 2 4323-8 ####[facility] [id number] [address] [place] IMMUNOFIXATION SCREEN, SERUM on 07-20-2024 MPA RESULT No M protein is identified. Normal No M protein is identified. [facility] Comment on above: Order Comment: Speci men Type: BLOOD SPECIMENOrdering Facility: [facility] Address: [address] [place] [address] Performed By: #### I FES ####[facility] LABIA [id number] [address] [place] STAFF REVIEW (MPA) Reviewed by Ariane Bautista M.D. Normal [facility] Comment on above: Order Comment: Speci men Type: BLOOD SPECIMENOrdering Facility: [facility] Address: [address] [place] [address] Performed By: #### I FES ####[facility] LABIA [id number] [place] [address] [place] IMMUNOGLOBULINS,IGG,IGA,IGMo n 07-20-2024 IgA [Mass/Vol] 201 mg/dL Normal 70-400 [facility] Comment on above: Order Comment: Speci men Type: BLOOD SPECIMENOrdering Facility: [facility] Address: [address] [place] [address] Performed By: #### S ERIMM ####[facility] LABIA [id number] [place] [address] [place] IgG [Mass/Vol] 1250 mg/dL Normal 700-1600 [facility] Comment on above: Order Comment: Speci men Type: BLOOD SPECIMENOrdering Facility: [facility] Address: [address] [place] [address] Performed By: #### S ERIMM ####[facility] LABIA [id number] [place] [address] [place] IgM [Mass/Vol] 38 mg/dL Low 40-230 [facility] Comment on above: Order Comment: Speci men Type: BLOOD SPECIMENOrdering Facility: [facility] Address: [address] [place] [address] Performed By: #### S RIZWAN ####[facility] LABCLIA [id number] [place] [address] [place] KAPPA/FLAHERTY,FREE,SERon 2023 Immunoglobulin light chains.kappa.free (S) [Mass/Vol] 57.7 mg/L High 3.3-19.4 [facility] Comment on above: Order Comment: Speci men Type: BLOOD SPECIMENOrdering Facility: [facility] Address: [address] [place] [address] Result Comment: Rare ly, increased serum free light chains levels may not be detected or accurately quantified due to prozone phenomenon or in high viscosity samples using this immunoturbidimetric assay. Correlation with other laboratory results and clinical findings is recommended.The [place] Free Light Chain was performed using the Binding Site Optilite immunoturbidimetric method. Result obtained with different assay methods or kits cannot be used interchangeably. Performed By: #### K LFRS ####[facility] LABCLIA [id number] [place] [address] [place] Immunoglobulin light chains.kappa/Immunog lobulin light chains.lambda (S) [Mass ratio] 1.50 Normal 0.26-1.65 [facility] Comment on above: Order Comment: Speci men Type: BLOOD SPECIMENOrdering Facility: [facility] Address: [address] [place] [address] Performed By: #### K LFRS ####[facility] LABCLIA [id number] [place] [address] [place] Immunoglobulin light chains.lambda.free [Mass/Vol] 38.4 mg/L High 5.7-26.3 [facility] Comment on above: Order Comment: Speci men Type: BLOOD SPECIMENOrdering Facility: [facility] Address: [address] [place] [address] Result Comment: Rare ly, increased serum free light chains levels may not be detected or accurately quantified due to prozone phenomenon or in high viscosity samples using this immunoturbidimetric assay. Correlation with other laboratory results and clinical findings is recommended.The [place] Free Light Chain was performed using the Binding Site Optilite immunoturbidimetric method. Result obtained with different assay methods or kits cannot be used interchangeably. Performed By: #### K LFRS ####[facility] LABCLIA [id number] [place] [address] [place] CNPNon 07-19-2024 CNPN Normal [facility] ALBUMIN/CREATININE RATIO, UR INEon 05-25-2024 Albumin DL <= 20 mg/L (U) [Mass/Vol] 19.4 mg/L Normal [facility] Comment on above: Order Comment: Speci men Type: URINE SPECIMENOrdering Facility: [facility] Address: [address] [place] [address] Performed By: #### U ACR ####[facility] LABIA [id number] [place] [address] [place] [facility] Albumin/Creatinine (U) [Mass ratio] 17 mg/g Normal <30 [facility] Comment on above: Order Comment: Speci men Type: URINE SPECIMENOrdering Facility: [facility] Address: [address] [place] [address] Result Comment: Adul t Male and Female Nephrotic Criteria:<30 mg/g is considered normal to mildly tqnayezyb77-362 mg/g is considered moderately increased>300 mg/g is considered severely increasedKDIGO. (2013). KDIGO 2012 Clinical Practice Guideline for the Evaluation and Management of Chronic Kidney Disease. Official Journal of the International Society of Nephrology, 3(1), 1-150. Performed By: #### U ACR ####[facility] LABCLIA [id number] [place] [address] [place] Creatinine (U) [Mass/Vol] 115.4 mg/dL Normal 20.0-300.0 [facility] Comment on above: Order Comment: Speci men Type: URINE SPECIMENOrdering Facility: [facility] Address: [address] [place] [address] Performed By: #### U ACR ####[facility] LABCLIA [id number] [place]DES[place] [id number] [place] [address] [place] CBC panel Auto (Bld)on 05-25 Erythrocyte distribution width (RBC) [Ratio] 15.4 % High 11.5-15.0 [facility] Comment on above: Order Comment: Speci men Type: BLOOD SPECIMENOrdering Facility: [facility] Address: [address] [place] [address] Performed By: #### 5 8410-2 ####[facility]IM[facility] ANTHONY [id number] [place] [address] [place] Hematocrit (Bld) [Volume fraction] 42.4 % Normal 39.0-51.0 [facility] Comment on above: Order Comment: Speci men Type: BLOOD SPECIMENOrdering Facility: [facility] Address: [address] [place] [address] Performed By: #### 5 8410-2 ####[facility] [id number] [place] [address] [place] Hemoglobin (Bld) [Mass/Vol] 14.0 g/dL Normal 13.0-17.0 [facility] Comment on above: Order Comment: Speci men Type: BLOOD SPECIMENOrdering Facility: [facility] Address: [address] [place] [address] Performed By: #### 5 8410-2 ####[facility] MIAMINCLIA [id number] [place] [address] [place] MCH (RBC) [Entitic mass] 31.7 pg Normal 26.0-34.0 [facility] Comment on above: Order Comment: Speci men Type: BLOOD SPECIMENOrdering Facility: [facility] Address: [address] [place] [address] Performed By: #### 5 8410-2 ####[facility]IM[facility] ANTHONY [id number] [place] [address] [place] MCHC (RBC) [Mass/Vol] 33.0 g/dL Normal 30.5-36.0 [facility] Comment on above: Order Comment: Speci men Type: BLOOD SPECIMENOrdering Facility: [facility] Address: [address] [place] [address] Performed By: #### 5 8410-2 ####[facility] ANTHONY [id number] [place] [address] [place] MCV (RBC) [Entitic vol] 96.1 fL Normal 80.0-100.0 [facility] Comment on above: Order Comment: Speci men Type: BLOOD SPECIMENOrdering Facility: [facility] Address: [address] [place] [address] Performed By: #### 5 8410-2 ####[facility]IM[facility] ANTHONY [id number] [place] [address] [place] Nucleated RBC (Bld) [#/Vol] 10*3/uL Normal <0.01 [facility] Comment on above: Order Comment: Speci men Type: BLOOD SPECIMENOrdering Facility: [facility] Address: [address] [place] [address] Performed By: #### 5 8410-2 ####[facility]IM[facility] ANTHONY [id number] [place] [address] [place] Platelet mean volume (Bld) [Entitic vol] 10.1 fL Normal 9.0-12.7 [facility] Comment on above: Order Comment: Speci men Type: BLOOD SPECIMENOrdering Facility: [facility] Address: [address] [place] [address] Performed By: #### 5 8410-2 ####[facility] MIAMINCLIA [id number] [place] [address] [place] Platelets (Bld) [#/Vol] 145 10*3/uL Low 150-400 [facility] Comment on above: Order Comment: Speci men Type: BLOOD SPECIMENOrdering Facility: [facility] Address: [address] [place] [address] Result Comment: No c lot detected. Performed By: #### 5 8410-2 ####[facility] MIAMINCBoston [id number] [place] [address] [place] RBC (Bld) [#/Vol] 4.41 10*6/uL Normal 4.20-6.00 [facility] Comment on above: Order Comment: Speci men Type: BLOOD SPECIMENOrdering Facility: [facility] Address: [address] [place] [address] Performed By: #### 5 8410-2 ####[facility] [id number] [place] [address] [place] WBC (Bld) [#/Vol] 6.04 10*3/uL Normal 3.70-11.00 [facility] Comment on above: Order Comment: Speci men Type: BLOOD SPECIMENOrdering Facility: [facility] Address: [address] [place] [address] Performed By: #### 5 8410-2 ####[facility] MIAMINCLIA [id number] [place] [address] [place] Comprehensive metabolic 2000 panelon 05-25-2024 Albumin [Mass/Vol] 3.6 g/dL Low 3.9-4.9 [facility] Comment on above: Order Comment: Speci men Type: BLOOD SPECIMENOrdering Facility: [facility] Address: [address] [place] [id number] Performed By: #### 2 4323-8 ####[facility] MIAMINCLI [id number] [place] [address] [place] ALP [Catalytic activity/Vol] 62 U/L Normal 38-113 [facility] Comment on above: Order Comment: Speci men Type: BLOOD SPECIMENOrdering Facility: [facility] Address: [address] [place] [id number] Performed By: #### 2 4323-8 ####[facility] MIAMINCLI [id number] [place] [address] [place] ALT [Catalytic activity/Vol] 13 U/L Normal 10-54 [facility] Comment on above: Order Comment: Speci men Type: BLOOD SPECIMENOrdering Facility: [facility] Address: [address] [place] [address] Performed By: #### 2 4323-8 ####[facility] CENTERLIA [id number] [place] [address] [place] Anion gap [Moles/Vol] 11 mmol/L Normal 8-15 [facility] Comment on above: Order Comment: Speci men Type: BLOOD SPECIMENOrdering Facility: [facility] Address: [address] [place] [id number] Performed By: #### 2 4323-8 ####[facility] MIAMINCLIA [id number] [place] [address] [place] AST [Catalytic activity/Vol] 14 U/L Normal 14-40 [facility] Comment on above: Order Comment: Speci men Type: BLOOD SPECIMENOrdering Facility: [facility] Address: [address] [place] [address] Performed By: #### 2 4323-8 ####[facility] MILLTOWNCLIA [id number] [place] [address] [place] Bilirubin [Mass/Vol] 0.6 mg/dL Normal 0.2-1.3 [facility] Comment on above: Order Comment: Speci men Type: BLOOD SPECIMENOrdering Facility: [facility] Address: [address] [place] [address] Performed By: #### 2 4323-8 ####[facility] MILLTOWNCLIA [id number] [place] [address] [place] Calcium [Mass/Vol] 8.7 mg/dL Normal 8.5-10.2 [facility] Comment on above: Order Comment: Speci men Type: BLOOD SPECIMENOrdering Facility: [facility] Address: [address] [place] [address] Performed By: #### 2 4323-8 ####[facility] MILLTOWNCLIA [id number] [place] [address] [place] Chloride [Moles/Vol] 106 mmol/L Normal 98-107 [facility] Comment on above: Order Comment: Speci men Type: BLOOD SPECIMENOrdering Facility: [facility] Address: [address] [place] [address] Performed By: #### 2 4323-8 ####[facility] MILLTOWNCLIA [id number] [place] [address] [place] CO2 [Moles/Vol] 21 mmol/L Low 22-30 [facility] Comment on above: Order Comment: Speci men Type: BLOOD SPECIMENOrdering Facility: [facility] Address: [address] [place] [address] Performed By: #### 2 4323-8 ####[facility] [id number] [place] [address] [place] Creatinine [Mass/Vol] 1.57 mg/dL High 0.73-1.22 [facility] Comment on above: Order Comment: Specquang hector Type: BLOOD SPECIMENOrdering Facility: [facility] Address: [address] [place] [address] Performed By: #### 2 4323-8 ####[facility] [id number] [place] [address] [place] Creatinine and Glomerular filtration rate.predicted panel (S/P/Bld) 43 mL/min/1.73m??? Low >=60 [facility] Comment on above: Order Comment: Katie [facility] Type: BLOOD SPECIMENOrdering Facility: [facility] Address: [address] [place] [address] Result Comment: Ling mated Glomerular Filtration Rate (eGFR) is calculated using the 2020 CKD-EPI creatinine equation. This equation utilizes serum creatinine, sex, and age as parameters. The creatinine assay has traceable calibration to isotope dilution-mass spectrometry. Refer to KDIGO guidelines for clinical interpretation. In patients with unstable renal function, e.g. those with acute kidney injury, the eGFR may not accurately reflect actual GFR. Performed By: #### 2 4323-8 ####[facility] [id number] [place] [address] [place] Glucose [Mass/Vol] 110 mg/dL High 74-99 [facility] Comment on above: Order Comment: Speci hector Type: BLOOD SPECIMENOrdering Facility: [facility] Address: [facility] [place] [address] Result Comment: The [place] Diabetes Association (ADA) provides guidance for cutoff values for fasting glucose and random glucose. The ADA defines fasting as no caloric intake for at least 8 hours. Fasting plasma glucose results between 100 to 125 mg/dL indicate increased risk for diabetes (prediabetes).Fasting plasma glucose results greater than or equal to 126 mg/dL meet the criteria for diagnosis of diabetes. In the absence of unequivocal hyperglycemia, results should be confirmed by repeat testing. In a patient with classic symptoms of hyperglycemia or hyperglycemic crisis, random plasma glucose results greater than or equal to 200 mg/dL meet the criteria for diagnosis of diabetes.Reference: Standards of Medical Care in Diabetes 2016, [place] [employer] Association. Diabetes Care. 2016.39(Suppl 1). Performed By: #### 2 4323-8 ####[facility] CENTERJULIOCESAR [id number] [place] [address] [place] Potassium [Moles/Vol] 4.6 mmol/L Normal 3.7-5.1 [facility] Comment on above: Order Comment: Speci men Type: BLOOD SPECIMENOrdering Facility: [facility] Address: [address] [place] [address] Performed By: #### 2 4323-8 ####[facility] ANTHONY [id number] [place] [address] [place] Protein [Mass/Vol] 6.1 g/dL Low 6.3-8.0 [facility] Comment on above: Order Comment: Speci men Type: BLOOD SPECIMENOrdering Facility: [facility] Address: [address] [place] [address] Performed By: #### 2 4323-8 ####[facility] [id number] [place] [address] [place] Sodium [Moles/Vol] 138 mmol/L Normal 136-144 [facility] Comment on above: Order Comment: Speci men Type: BLOOD SPECIMENOrdering Facility: [facility] Address: [address] [place] [address] Performed By: #### 2 4323-8 ####[facility] CENTERWINGRIDLIA [id number] [place] [address] [place] Urea nitrogen [Mass/Vol] 24 mg/dL Normal 9-24 [facility] Comment on above: Order Comment: Jelenaquang young Type: BLOOD SPECIMENOrdering Facility: [facility] Address: [address] [place] [address] Performed By: #### 2 4323-8 ####[facility] MARYANA [facility] [id number] [place] [address] [place] HbA1c (Bld)on 05-25-2024 Average glucose Estimated from glycated hemoglobin (Bld) [Mass/Vol] 111 mg/dL Normal [facility] Comment on above: Order Comment: Jelenaquang young Type: BLOOD SPECIMENOrdering Facility: [facility] Address: [address] [place] [address] Result Comment: eAG: (Estimated average glucose) is a calculated value from HgbA1c and is cash application representative of the average blood glucose level in the last 2-3 month period. Performed By: #### 5 5454-3 ####[facility] LABCLIA [id number] [address] STATES OF [facility] HbA1c (Bld) [Mass fraction] 5.5 % Normal 4.3-5.6 [facility] Comment on above: Order Comment: Jelenaquang young Type: BLOOD SPECIMENOrdering Facility: [facility] Address: [address] [place] [address] Result Comment: [place] Diabetes Association guidelines indicate that patients with HgbA1c in the range 5.7-6.4% are at increased risk for development of diabetes, and intervention by lifestyle modification may be beneficial. HgbA1c greater or equal to 6.5% is considered diagnostic of diabetes. Performed By: #### 5 5454-3 ####[facility] LABCLIA [id number] [place] [id number] [place] Lipid 1996 panelon 4 Cholesterol [Mass/Vol] 130 mg/dL Normal <200 [facility] Comment on above: Order Comment: Katie young Type: BLOOD SPECIMENOrdering Facility: [facility] Address: [address] [place] [address] Result Comment: <200 mg/dL, Desirable 200-239 mg/dL, Borderline high>239 mg/dL, High Performed By: #### 3 016-3 ####[facility] LABCLIA [id number] [place] [address] [place]#### 75506-3 ####[facility] LABCLIA [id number] [address] [id number] [place] [address] [place] Cholesterol in HDL [Mass/Vol] 46 mg/dL Normal >39 [facility] Comment on above: Order Comment: Speci men Type: BLOOD SPECIMENOrdering Facility: [facility] Address: [address] [place] [address] Result Comment: 40-5 9 mg/dL, Acceptable>59 mg/dL, High: Negative risk factor for coronary heart disease<40 mg/dL, Low: Positive risk factor for coronary heart disease Performed By: #### 3 016-3 ####[facility] LABCLIA [id number] [place] [address] [place]#### 19319-0 ####[facility] LABCLIA [id number] [address] STATES OF [facility] [id number] [place] [address] [place] Cholesterol in LDL [Mass/Vol] 64 mg/dL Normal <100 [facility] Comment on above: Order Comment: Speci men Type: BLOOD SPECIMENOrdering Facility: [facility] Address: [address] [place] [address] Result Comment: <100 mg/dL, Optimal 100-129 mg/dL, Near optimal/above optimal 130-159 mg/dL, Borderline high 160-189 mg/dL, High>189 mg/dL, Very highSecondary prevention optimal LDL Cholesterol levels are recommended to be < 70 mg/dL Performed By: #### 3 016-3 ####[facility] LABCLIA [id number] [address] [place]#### 78909-7 ####[facility]CLIA [id number] [address] [id number] [place] [address] [place] Cholesterol in LDL/Cholesterol in HDL [Mass ratio] 1.39 {ratio} Normal <2.54 [facility] Comment on above: Order Comment: Speci men Type: BLOOD SPECIMENOrdering Facility: [facility] Address: [address] [place] [address] Result Comment: Refe rennoris:1. National Cholesterol Education Program ATP III Guideline At-A-Glance Quick Desk Reference: National Heart, Lung, and Blood [place]. National Institutes of Health. 2001: NIH Publication No. 01-3305.2. An International Atherosclerosis Society position paper: global recommendations for the management of dyslipidemia: executive summary, Atherosclerosis. 2014: 232(2):410-413. Performed By: #### 3 016-3 ####[facility] LABCLIA [id number] [address]#### 85208-5 ####[facility] LABCLIA [id number] [address] [id number] [place] [address] [place] Cholesterol in VLDL [Mass/Vol] 20 mg/dL Normal <30 [facility] Comment on above: Order Comment: Speci men Type: BLOOD SPECIMENOrdering Facility: [facility] Address: [address] [address] Performed By: #### 3 016-3 ####[facility] LABCLIA [id number] [address] [place]#### [address]70-7 ####[facility] LABCLIA [id number] [address] STATES [facility] [id number] [address] [place] Cholesterol non HDL [Mass/Vol] 84 mg/dL Normal <130 [facility] Comment on above: Order Comment: Speci men Type: BLOOD SPECIMENOrdering Facility: [facility] Address: [address] [place] [address] Result Comment: <130 mg/dL, Optimal 130-159 mg/dL, Near optimal/above optimal 160-189 mg/dL, Borderline high 190-219 mg/dL, High>219 mg/dL, Very highSecondary prevention optimal non HDL Cholesterol levels are recommended to be <100 mg/dL Performed By: #### 3 016-3 ####[facility] LABCLIA [id number] [place] [address] [place]#### 17716-7 ####[facility] LABCLIA [id number] [address] STATES OF [facility] [id number] [place] [address] [place] Cholesterol.total/Ch olesterol in HDL [Mass ratio] 2.83 {ratio} Normal <5.10 [facility] Comment on above: Order Comment: Speci men Type: BLOOD SPECIMENOrdering Facility: [facility] Address: [address] [place] [address] Performed By: #### 3 016-3 ####[facility] LABCLIA [id number] [place] [address] [place]#### 70321-4 ####[facility] LABCLIA [id number] [address] [id number] [place] [address] [place] FASTING TIME 12 hrs Normal [facility] Comment on above: Order Comment: Speci men Type: BLOOD SPECIMENOrdering Facility: [facility] Address: [address] [place] [address] Performed By: #### 3 016-3 ####[facility] LABCLIA [id number] [place] [address] [place]#### 35628-2 ####[facility] LABCLIA [id number] [address] [id number] [place] [address] [place] Triglyceride [Mass/Vol] 98 mg/dL Normal <150 [facility] Comment on above: Order Comment: Speci men Type: BLOOD SPECIMENOrdering Facility: [facility] Address: [address] [place] [id number] Result Comment: <150 mg/dL, Normal 150-199 mg/dL, Borderline high 200-499 mg/dL, High>499 mg/dL, Very high Performed By: #### 3 016-3 ####[facility] LABCLIA [id number] [place] [address] [place]#### 35012-7 ####[facility] LABCLIA [id number] [address] [id number] [place] [address] [place] TSH SerPl-aCncon 05-25-2024 TSH Qn 4.620 m[IU]/L High 0.270-4.200 [facility] Comment on above: Order Comment: Speci men Type: BLOOD SPECIMENOrdering Facility: [facility] Address: [address] [place] [address] Performed By: #### 3 016-3 ####[facility] LABCLIA [id number] [place] [id number] [facility]#### 72472-4 ####[facility] LABCLIA [id number] [place] [id number] [facility] [id number] [place], [place] [id number] [place] [address] [place] US KIDNEY/BLADDERon 05-25-20 KIDNEY/BLADDER Normal [facility] PROTEIN / CREATININE RATIOon 03-09-2024 Protein/Creatinine (U) [Mass ratio] 0.06 mg/mg NINF - 0.15 mg/mg [facility] Comment on above: Adult Proteinuria Ca tegories: <0.15 mg/mg is considered normal to mildly increased 0.15 - 0.50 mg/mg is considered moderately increased >0.50 mg/mg is considered severely increased KDIGO. (2013). KDIGO 2012 Clinical Practice Guideline for the Evaluation and Management of Chronic Kidney Disease. Official Journal of the International Society of Nephrology, 3(1), 1-150. Protein/Creatinine (U) [Mass ratio]on 03-09-2024 Creatinine (U) [Mass/Vol] 125.2 mg/dL 20.0 - 300.0 mg/dL [facility] Interpretation and review of laboratory results Normal [facility] Protein (U) [Mass/Vol] 8 mg/dL 0 - 20 mg/dL [facility] UA DIP, URINE (POC)on 2023 BILIRUBIN UA (POCT) Negative Negative [facility] CLARITY UA (POCT) Clear [facility] COLOR UA (POCT) Yellow [facility] GLUCOSE UA (POCT) Negative Negative mg/dL [facility] Hemoglobin Ql (U) Negative Negative [facility] KETONE UA (POCT) Negative Negative mg/dL [facility] LEUKOCYTES UA (POCT) Negative Negative [facility] NITRITE UA (POCT) Negative Negative [facility] PH UA (POCT) 5.5 4.5 - 8.0 [facility] Protein Ql (U) Negative Negative mg/dL [facility] SPECIFIC GRAVITY UA (POCT) 1.020 1.005 - 1.030 [facility] UROBILINOGEN UA (POCT) 0.2 Normal E.U./dL [facility] Location:Internal Medicine [facility], [address] [place] [address], [address] [place] [address] POINT OF CARE [facility] Laboratory - Chemistry and C hemistry - challengeon 06-09-2023 Albumin [Mass/Vol] 3.1 g/dL Abnormal 3.4 - 5.0 g/dL [facility].; [facility] Work Phone: Albumin [Mass/Vol] 0.9 g/dL Normal 0.9 - 1.6 [facility]; [facility] Work Phone: ALT [Catalytic activity/Vol] 26 U/L Normal 16 - 63 U/L [facility]; [facility] Work Phone: Anion gap [Moles/Vol] 14 mmol/L Normal 10 - 20 mmol/L [facility]; [facility] Work Phone: AST [Catalytic activity/Vol] 13 U/L Abnormal 15 - 37 U/L [facility]; [facility] Work Phone: Bilirubin [Mass/Vol] 0.6 mg/dL Normal 0.2 - 1 .0 mg/dL [facility]; [facility] Work Phone: Calcium [Mass/Vol] 8.6 mg/dL Normal 8.5 - 10. 1 mg/dL [facility]; [facility] Work Phone: Chloride [Moles/Vol] 108 mmol/L Abnormal 98 - 10 7 mmol/L [facility]; [facility] Work Phone: Cholesterol [Mass/Vol] 115 mg/dL Normal 0 - 240 mg/dL [facility]; [facility] Work Phone: Cholesterol in HDL [Mass or moles/Vol] 57 mg/dL Normal 40 - 60 mg/dL [facility]; [facility] Work Phone: Cholesterol in LDL [Mass/Vol] 47 mg/dL Normal 0 - 129 mg/dL [facility]; [facility] Work Phone: Cholesterol.total/Ch olesterol in HDL [Mass ratio] 2.0 {ratio} Normal 0.0 - 5.0 [facility]; [facility] Work Phone: CO2 [Moles/Vol] 22.4 mmol/L Normal 21.0 - 32.0 mmol/L [facility]; [facility] Work Phone: Creatinine [Mass/Vol] 1.62 mg/dL Abnormal 0.70 - 1.30 mg/dL [facility]; [facility]. Work Phone: Creatinine [Mass/Vol] 99.23 mg/dL Normal [facility]; [facility] Work Phone: GFR/1.73 sq M.predicted among blacks MDRD (S/P/Bld) [Vol rate/Area] 49 {ML/MINUTE} Abnormal 60 - 999 {ML/MINUTE} [facility]; [facility] Work Phone: GFR/1.73 sq M.predicted MDRD (S/P/Bld) [Vol rate/Area] 41 {ML/MINUTE} Abnormal 60 - 999 {ML/MINUTE} [facility]; [facility] Work Phone: Globulin (S) [Mass/Vol] 3.5 g/dL Normal 1.5 - 3.8 g/dL [facility]; [facility] Work Phone: Glucose [Mass/Vol] 106 mg/dL Normal 74 - 106 mg/dL [facility]; [facility] Work Phone: Lipid 1996 panel Normal [facility]; [facility] Work Phone: Potassium [Moles/Vol] 4.2 mmol/L Normal 3.5 - 5.1 mmol/L [facility]; [facility] Work Phone: Protein [Mass/Vol] 6.6 g/dL Normal 6.4 - 8.2 g/dL [facility]; [facility] Work Phone: Sodium [Moles/Vol] 140 mmol/L Normal 136 - 145 mmol/L [facility]; [facility] Work Phone: Triglyceride [Mass/Vol] 53 mg/dL Normal 0 - 150 mg/dL [facility]; [facility] Work Phone: TSH Qn 5.07 m[IU]/L Abnormal 0.35 - 3.74 {uIU/ml} [facility]; [facility] Work Phone: Urea nitrogen [Mass/Vol] 35 mg/dL Abnormal 7 - 18 mg/dL [facility]; [facility]. Work Phone: Urea nitrogen/Creatinine [Mass ratio] 22 {ratio} Normal 0 - 30 {ratio} [facility].; [facility]. Work Phone: Laboratory - Drug toxicology on 06-09-2023 Vancomycin [Mass/Vol] 12 mg/g Normal [facility]; [facility]. Work Phone: Laboratory - Hematology and Cell countson 06-09-2023 Basophils (Bld) [#/Vol] 0.00 {x10EE3/UL} Normal 0.00 - 0.10 {x10EE3/UL} [facility]; [facility]. Work Phone: Basophils/100 WBC (Bld) 0.1 % Normal 0.0 - 2.0 % [facility] [place]; [facility]. Work Phone: Eosinophils (Bld) [#/Vol] 0.10 {x10EE3/UL} Normal 0.00 - 0.50 {x10EE3/UL} [facility].; [facility]. Work Phone: Eosinophils/100 WBC (Bld) 0.8 % Normal 0.0 - 7.0 % [facility]; [facility]. Work Phone: Erythrocyte distribution width (RBC) [Ratio] 16.9 % Abnormal 12.0 - 15.6 % [facility].; [facility]. Work Phone: HbA1c (Bld) [Mass fraction] 5.8 % Normal 0.0 - 6.5 % [facility]; [facility] Work Phone: Hematocrit (Bld) [Volume fraction] 42.7 % Normal 40.0 - 52.0 % [facility]; [facility] Work Phone: Hemoglobin (Bld) [Mass/Vol] 14.3 g/dL Normal 13.0 - 17.5 g/dL [facility]; [facility] Work Phone: Lymphocytes (Bld) [#/Vol] 2.10 {x10EE3/UL} Normal 0.80 - 2.80 {x10EE3/UL} [facility]; [facility] Work Phone: Lymphocytes/100 WBC (Bld) 21.2 % Normal 20.0 - 45.0 % [facility]; [facility] Work Phone: MCH (RBC) [Entitic mass] 32 pg Normal 27 - 33 pg [facility]; [facility] Work Phone: MCHC (RBC) [Mass/Vol] 33 {X10_3} Normal 32 - 36 {X10_3} [facility]; [facility] Work Phone: MCV (RBC) [Entitic vol] 97 fL Normal 81 - 98 fL [facility]; [facility] Work Phone: Monocytes (Bld) [#/Vol] 1.10 {x10EE3/UL} Abnormal 0.20 - 1.00 {x10EE3/UL} [facility]; [facility], [facility] Work Phone: Monocytes/100 WBC (Bld) 11.3 % Abnormal 0.0 - 10.0 % [facility] [employer]; [facility] Work Phone: Morphology Ernesto (Bld) [Interp] N/A Normal [facility]; [facility] Work Phone: Neutrophils (Bld) [#/Vol] 6.70 {x10EE3/UL} Normal 1.50 - 7.10 {x10EE3/UL} [facility] [place]; [facility] Work Phone: Neutrophils/100 WBC (Bld) 66.6 % Normal 46.0 - 76.0 % [facility] [place]; [facility] Work Phone: Platelet mean volume (Bld) [Entitic vol] 8.5 fL Normal 6.4 - 10.5 fL [facility] [place]; [facility] Work Phone: Platelets (Bld) [#/Vol] 244 {x10EE3/UL} Normal 150 - 450 {x10EE3/UL} [facility] [place]; [facility]. Work Phone: RBC (Bld) [#/Vol] 4.41 {x_10EE6/UL} Abnormal 4.50 - 6.00 {x_10EE6/UL} [facility] [place]; [facility]. Work Phone: WBC (Bld) [#/Vol] 10.1 {x_10EE3/UL} Normal 4.5 - 10.8 {x_10EE3/UL} [facility] [place]; [facility]. Work Phone: No Panel Informationon 06-09 AGE 83 {years} Normal [facility] [place]; [facility] Work Phone: ALK PHOS 63 U/L Normal 46 - 116 U/L [facility].; [facility]. Work Phone: CBC + DIFF Normal [facility].; [facility]. Work Phone: CMP with eGFR Normal [facility]; [facility]. Work Phone: MANUAL DIFF N/A Normal [facility]; [facility]. Work Phone: MICROALBUMIN UR 1.2 mg/dL Normal 0.1 - 25.1 mg/dL [facility]; [facility]. Work Phone: CT CHEST WO IVCONon 05-15-20 [facility] CBC W Auto Differential pane l (Bld)on 05-07-2023 Basophils (Bld) [#/Vol] 0.16 10*3/uL High <0.11 k/uL [facility] Basophils/100 WBC (Bld) 2.2 % [facility] Differential cell count method Nom (Bld) Auto [facility] Eosinophils (Bld) [#/Vol] 0.21 10*3/uL <0.46 k/uL [facility] Eosinophils/100 WBC (Bld) 2.9 % [facility] Erythrocyte distribution width (RBC) [Ratio] 15.6 % High 11.5 - 15.0 % [facility] Hematocrit (Bld) [Volume fraction] 44.1 % 39.0 - 51.0 % [facility] Hemoglobin (Bld) [Mass/Vol] 14.6 g/dL 13.0 - 17.0 g/dL [facility] Immature granulocytes (Bld) [#/Vol] 0.10 10*3/uL High <0.10 k/uL [facility] Immature granulocytes/100 WBC (Bld) 1.4 % [facility] Lymphocytes (Bld) [#/Vol] 3.35 10*3/uL 1.00 - 4.00 k/uL [facility] Lymphocytes/100 WBC (Bld) 45.9 % [facility] MCH (RBC) [Entitic mass] 31.7 pg 26.0 - 34.0 pg [facility] MCHC (RBC) [Mass/Vol] 33.1 g/dL 30.5 - 36.0 g/dL [facility] MCV (RBC) [Entitic vol] 95.7 fL 80.0 - 100.0 fL [facility] Monocytes (Bld) [#/Vol] 0.82 10*3/uL <0.87 k/uL [facility] Monocytes/100 WBC (Bld) 11.2 % [facility] Neutrophils (Bld) [#/Vol] 2.66 10*3/uL 1.45 - 7.50 k/uL [facility] Neutrophils/100 WBC (Bld) 36.4 % [facility] Nucleated RBC (Bld) [#/Vol] <0.01 k/uL [facility] Nucleated RBC/100 WBC (Bld) [Ratio] 0.0 /100 WBC [facility] Platelet mean volume (Bld) [Entitic vol] 9.5 fL 9.0 - 12.7 fL [facility] Platelets (Bld) [#/Vol] 204 10*3/uL 150 - 400 k/uL [facility] RBC (Bld) [#/Vol] 4.61 10*6/uL 4.20 - 6.0 0 m/uL [facility] WBC (Bld) [#/Vol] 7.30 10*3/uL 3.70 - 11. 00 k/uL [facility] Comprehensive metabolic 2000 panelon 05-07-2023 Albumin [Mass/Vol] 4.1 g/dL 3.9 - 4.9 g/dL [facility] ALP [Catalytic activity/Vol] 66 U/L 38 - 113 U/L [facility] ALT [Catalytic activity/Vol] 19 U/L 10 - 54 U/L [facility] Anion gap [Moles/Vol] 11 mmol/L 9 - 18 mmol/L [facility] AST [Catalytic activity/Vol] 16 U/L 14 - 40 U/L [facility] Bilirubin [Mass/Vol] 0.4 mg/dL 0.2 - 1 .3 mg/dL [facility] Calcium [Mass/Vol] 9.3 mg/dL 8.5 - 10. 2 mg/dL [facility] Chloride [Moles/Vol] 108 mmol/L High 97 - 10 5 mmol/L [facility] CO2 [Moles/Vol] 23 mmol/L 22 - 30 mmol/L [facility] Creatinine [Mass/Vol] 1.67 mg/dL High 0.73 - 1.22 mg/dL [facility] Estimated Glomerular Filtration Rate 40 mL/min/1.73m Low >=60 mL/min/1.73m [facility] Glucose [Mass/Vol] 109 mg/dL High 74 - 99 mg/dL [facility] Potassium [Moles/Vol] 4.6 mmol/L 3.7 - 5.1 mmol/L [facility] Protein [Mass/Vol] 7.1 g/dL 6.3 - 8.0 g/dL Cl [facility] Sodium [Moles/Vol] 142 mmol/L 136 - 144 mmol/L [facility] Urea nitrogen [Mass/Vol] 28 mg/dL High 9 - 24 mg/dL [facility] CT HIP WO IVCON RIGHTon 04-[address] [facility] [address] CHEST WO IVCONon 11-06-19 [facility] No Panel Informationon 10-30 Radiology Result ACTIONABLE Abnormal [facility] Laboratory - Chemistry and C hemistry - challengeon 10-07-2022 Albumin [Mass/Vol] 3.6 g/dL Normal 3.4 - 5.0 g/dL [facility]; [facility] Work Phone: Albumin [Mass/Vol] 1.1 g/dL Normal 0.9 - 1.6 [facility]; [facility] Work Phone: ALT [Catalytic activity/Vol] 23 U/L Normal 16 - 63 U/L [facility]; [facility] Work Phone: Anion gap [Moles/Vol] 10 mmol/L Normal 10 - 20 mmol/L [facility]; [facility] Work Phone: AST [Catalytic activity/Vol] 18 U/L Normal 15 - 37 U/L [facility]; [facility] Work Phone: Bilirubin [Mass/Vol] 0.7 mg/dL Normal 0.2 - 1 .0 mg/dL [facility]; [facility] Work Phone: Bilirubin [Mass/Vol] Negative Normal [facility]; [facility] Work Phone: Calcium [Mass/Vol] 8.8 mg/dL Normal 8.5 - 10. 1 mg/dL [facility]; [facility] Work Phone: Chloride [Moles/Vol] 110 mmol/L Abnormal 98 - 10 7 mmol/L [facility]; [facility] Work Phone: Cholesterol [Mass/Vol] 116 mg/dL Normal 0 - 240 mg/dL [facility]; [facility] Work Phone: Cholesterol in HDL [Mass or moles/Vol] 48 mg/dL Normal 40 - 60 mg/dL [facility]; [facility] Work Phone: Cholesterol in LDL [Mass/Vol] 50 mg/dL Normal 0 - 129 mg/dL [facility]; [facility] Work Phone: Cholesterol.total/Ch olesterol in HDL [Mass ratio] 2.4 {ratio} Normal 0.0 - 5.0 [facility]; [facility] Work Phone: CO2 [Moles/Vol] 26.0 mmol/L Normal 21.0 - 32.0 mmol/L [facility]; [facility] Work Phone: Creatinine [Mass/Vol] 1.65 mg/dL Abnormal 0.70 - 1.30 mg/dL [facility]; [facility], [facility]. Work Phone: GFR/1.73 sq M.predicted among blacks MDRD (S/P/Bld) [Vol rate/Area] 48 {ML/MINUTE} Abnormal 60 - 999 {ML/MINUTE} [facility].; [facility], [facility]. Work Phone: GFR/1.73 sq M.predicted MDRD (S/P/Bld) [Vol rate/Area] 40 {ML/MINUTE} Abnormal 60 - 999 {ML/MINUTE} [facility]; [facility], [facility]. Work Phone: Globulin (S) [Mass/Vol] 3.2 g/dL Normal 1.5 - 3.8 g/dL [facility]; [facility], [facility]. Work Phone: Glucose [Mass/Vol] 104 mg/dL Normal 74 - 106 mg/dL [facility]; [facility], [facility]. Work Phone: Glucose [Mass/Vol] NORM Normal [facility]; [facility], [facility]. Work Phone: Lipid 1996 panel Normal [facility]; [facility], [facility]. Work Phone: pH (Bld) 5 [pH] Normal [facility]; [facility] Work Phone: Potassium [Moles/Vol] 4.4 mmol/L Normal 3.5 - 5.1 mmol/L [facility]; [facility], [facility] Work Phone: Protein [Mass/Vol] 6.8 g/dL Normal 6.4 - 8.2 g/dL [facility]; [facility] Work Phone: Protein [Mass/Vol] 15 g/dL Abnormal [facility]; [facility] Work Phone: Sodium [Moles/Vol] 142 mmol/L Normal 136 - 145 mmol/L [facility]; [facility] Work Phone: Triglyceride [Mass/Vol] 88 mg/dL Normal 0 - 150 mg/dL [facility]; [facility] Work Phone: TSH Qn 3.55 m[IU]/L Normal 0.35 - 3.74 {uIU/ml} [facility]; [facility] Work Phone: Urea nitrogen [Mass/Vol] 22 mg/dL Abnormal 7 - 18 mg/dL [facility]; [facility] Work Phone: Urea nitrogen/Creatinine [Mass ratio] 13 {ratio} Normal 0 - 30 {ratio} [facility]; [facility] Work Phone: Laboratory - Hematology and Cell countson 10-07-2022 Basophils (Bld) [#/Vol] 0.10 {x10EE3/UL} Normal 0.00 - 0.10 {x10EE3/UL} [facility]; [facility] Work Phone: Basophils/100 WBC (Bld) 2.5 % Abnormal 0.0 - 2.0 % [facility]; [facility] Work Phone: Eosinophils (Bld) [#/Vol] 0.30 {x10EE3/UL} Normal 0.00 - 0.50 {x10EE3/UL} [facility]; [facility] Work Phone: Eosinophils/100 WBC (Bld) 5.4 % Normal 0.0 - 7.0 % [facility]; [facility] Work Phone: Erythrocyte distribution width (RBC) [Ratio] 15.4 % Normal 12.0 - 15.6 % [facility]; [facility] Work Phone: HbA1c (Bld) [Mass fraction] 5.4 % Normal 4.3 - 5.6 % [facility]; [facility] Work Phone: Hematocrit (Bld) [Volume fraction] 39.1 % Abnormal 40.0 - 52.0 % [facility]; [facility] Work Phone: Hemoglobin (Bld) [Mass/Vol] 13.5 g/dL Normal 13.0 - 17.5 g/dL [facility]; [facility]. Work Phone: Lymphocytes (Bld) [#/Vol] 2.40 {x10EE3/UL} Normal 0.80 - 2.80 {x10EE3/UL} [facility]; [facility] Work Phone: Lymphocytes/100 WBC (Bld) 39.6 % Normal 20.0 - 45.0 % [facility]; [facility]. Work Phone: MCH (RBC) [Entitic mass] 34 pg Abnormal 27 - 33 pg [facility]; [facility] Work Phone: MCHC (RBC) [Mass/Vol] 34 {X10_3} Normal 32 - 36 {X10_3} [facility]; [facility] Work Phone: MCV (RBC) [Entitic vol] 98 fL Normal 81 - 98 fL [facility].; [facility]. Work Phone: Monocytes (Bld) [#/Vol] 0.80 {x10EE3/UL} Normal 0.20 - 1.00 {x10EE3/UL} [facility].; [facility], [facility]. Work Phone: Monocytes/100 WBC (Bld) 13.3 % Abnormal 0.0 - 10.0 % [facility].; [facility]. Work Phone: Morphology Ernesto (Bld) [Interp] N/A Normal [facility]; [facility]. Work Phone: Neutrophils (Bld) [#/Vol] 2.40 {x10EE3/UL} Normal 1.50 - 7.10 {x10EE3/UL} [facility].; [facility], [facility]. Work Phone: Neutrophils/100 WBC (Bld) 39.2 % Abnormal 46.0 - 76.0 % [facility].; [facility], [facility]. Work Phone: Platelet mean volume (Bld) [Entitic vol] 8.2 fL Normal 6.4 - 10.5 fL [facility], [facility]. Work Phone: Platelets (Bld) [#/Vol] 156 {x10EE3/UL} Normal 150 - 450 {x10EE3/UL} [facility], [facility]. Work Phone: RBC (Bld) [#/Vol] 4.01 {x_10EE6/UL} Abnormal 4.50 - 6.00 {x_10EE6/UL} [facility]. Work Phone: WBC (Bld) [#/Vol] 6.0 {x_10EE3/UL} Normal 4.5 - 10.8 {x_10EE3/UL} [facility].; [facility] Work Phone: WBC (Bld) [#/Vol] Negative Normal [facility].; [facility], [facility]. Work Phone: Laboratory - Specimen inform ationon 10-07-2022 Clarity (U) clear Normal [facility].; [facility]. Work Phone: Color (U) p.yel [facility].; [facility], [facility]. Work Phone: Specimen type Nom (Spec) Clean catch [facility].; [facility], [facility]. Work Phone: Laboratory - Urinalysison Nitrite Ql (U) Negative Normal [facility].; [facility], [facility]. Work Phone: No Panel Informationon 10-07 AGE 82 {years} Normal [facility].; [facility]. Work Phone: Albumin Urine Random 12.8 mg/L Normal [facility].; [facility], [facility]. Work Phone: Albumin/Creat Ratio 9 mg/g [facility].; [facility], [facility]. Work Phone: ALK PHOS 59 U/L Normal 46 - 116 U/L [facility].; [facility]. Work Phone: Blood Negative Normal [facility].; [facility]. Work Phone: CBC + DIFF Normal [facility]; [facility]. Work Phone: CMP with eGFR Normal [facility].; [facility]. Work Phone: Creatinine,Urine,Ran 136.7 mg/dL Normal 20.0 - 300.0 mg/dL [facility].; [facility]. Work Phone: Hemoglobin A0 108 mg/dL Normal [facility].; [facility]. Work Phone: Ketone Negative Normal [facility].; [facility]. Work Phone: MANUAL DIFF N/A Normal [facility].; [facility]. Work Phone: Microscopic NOT INDICATED Normal [facility].; [facility]. Work Phone: Sp [place] 1.[address] [facility].; [facility]. Work Phone: Urobilinog NORM Normal [facility].; [facility]. Work Phone: Basic metabolic 2000 panelon 02-06-2022 Anion gap [Moles/Vol] 13 mmol/L 9 - 18 mmol/L [facility] Calcium [Mass/Vol] 9.1 mg/dL 8.5 - 10. 2 mg/dL [facility] Chloride [Moles/Vol] 105 mmol/L 97 - 10 5 mmol/L [facility] CO2 [Moles/Vol] 20 mmol/L Low 22 - 30 mmol/L [facility] Creatinine [Mass/Vol] 1.62 mg/dL High 0.73 - 1.22 mg/dL [facility] Estimated Glomerular Filtration Rate 42 mL/min/1.73m Low >=60 mL/min/1.73m [facility] Glucose [Mass/Vol] 95 mg/dL 74 - 99 mg/dL [facility] Potassium [Moles/Vol] 4.6 mmol/L 3.7 - 5.1 mmol/L [facility] Sodium [Moles/Vol] 138 mmol/L 136 - 144 mmol/L [facility] Urea nitrogen [Mass/Vol] 28 mg/dL High 9 - 24 mg/dL [facility] CBC W Auto Differential pane l (Bld)on 02-06-2022 Abs Immature Gran 0.06 k/uL <0.10 k/uL [facility] Basophils (Bld) [#/Vol] 0.10 10*3/uL <0.11 k/uL [facility] Basophils/100 WBC (Bld) 1.3 % [facility] Differential cell count method Nom (Bld) Auto [facility] Eosinophils (Bld) [#/Vol] 0.17 10*3/uL <0.46 k/uL [facility] Eosinophils/100 WBC (Bld) 2.3 % [facility] Erythrocyte distribution width (RBC) [Ratio] 15.4 % High 11.5 - 15.0 % [facility] Hematocrit (Bld) [Volume fraction] 36.4 % Low 39.0 - 51.0 % [facility] Hemoglobin (Bld) [Mass/Vol] 12.7 g/dL Low 13.0 - 17.0 g/dL [facility] Immature Gran % 0.8 % [facility] Lymphocytes (Bld) [#/Vol] 3.16 10*3/uL 1.00 - 4.00 k/uL [facility] Lymphocytes/100 WBC (Bld) 42.2 % [facility] MCH (RBC) [Entitic mass] 34.6 pg High 26.0 - 34.0 pg [facility] MCHC (RBC) [Mass/Vol] 34.9 g/dL 30.5 - 36.0 g/dL [facility] MCV (RBC) [Entitic vol] 99.2 fL 80.0 - 100.0 fL [facility] Monocytes (Bld) [#/Vol] 0.91 10*3/uL High <0.87 k/uL [facility] Monocytes/100 WBC (Bld) 12.1 % [facility] Neutrophils (Bld) [#/Vol] 3.09 10*3/uL 1.45 - 7.50 k/uL [facility] Neutrophils/100 WBC (Bld) 41.3 % [facility] Nucleated RBC (Bld) [#/Vol] 10*3/uL <0.01 k/uL [facility] Nucleated RBC/100 WBC (Bld) [Ratio] 0.0 /100 WBC [facility] Platelet mean volume (Bld) [Entitic vol] 9.4 fL 9.0 - 12.7 fL [facility] Platelets (Bld) [#/Vol] 167 10*3/uL 150 - 400 k/uL [facility] RBC (Bld) [#/Vol] 3.67 10*6/uL Low 4.20 - 6.0 0 m/uL [facility] WBC (Bld) [#/Vol] 7.49 10*3/uL 3.70 - 11. 00 k/uL [facility] IMMUNOGLOBULINS GAMon 2021 IgA [Mass/Vol] 107 mg/dL 70 - 400 mg/dL [facility] IgG [Mass/Vol] 694 mg/dL Low 700-1,600 mg/dL [facility] IgM [Mass/Vol] 25 mg/dL Low 40 - 230 mg/dL [facility] PROTEIN TOTAL BLDon 02-07-20 22 Protein [Mass/Vol] 5.9 g/dL Low 6.3 - 8.0 g/dL [facility] UAon 11-13-2021 Color (U) Yellow Normal [facility] ([place]) Comment on above: Performed By: #### U A, UAMIC #### [address] [address] Glucose (U) [Mass/Vol] Negative Normal Negative [facility] ([place]) Comment on above: Performed By: #### U A, UAMIC #### [address] [address] Ketones Ql (U) Negative Normal Neg-Trace [facility] ([place]) Comment on above: Performed By: #### U A, UAMIC #### [address] [address] UA Appear Turbid Abnormal Clear [facility] ([place]) Comment on above: Performed By: #### U A, UAMIC #### [place] [address] UA Blood Negative Normal Neg-Trace [facility] ([place]) Comment on above: Performed By: #### U A, UAMIC #### [place] [address] UA Leuk Est Negative Normal Negative [facility] ([place]) Comment on above: Performed By: #### U A, UAMIC #### [place] [address] UA Nitrite Negative Normal Negative [facility] ([place] Comment on above: Performed By: #### U A, UAMIC #### [place] [address] UA pH 5.0 Normal 5.0 - 8.0 [facility] ([place]) Comment on above: Performed By: #### U A, UAMIC #### [place] [address] UA Protein Negative Normal Negative [facility] ([place]) Comment on above: Performed By: #### U A, UAMIC #### [place] [address] UA Spec Grav 1.025 Normal 1.006-1.029 [facility] ([place]) Comment on above: Performed By: #### U A, UAMIC #### [place] [address] UA Specimen Type Clean Catch Normal [facility] ([place]) Comment on above: Performed By: #### U A, UAMIC #### [place] [address] UA Urobilinogen 0.2 E.U./dL Normal 0.2-1.0 [facility] ([place]) Comment on above: Performed By: #### U A, UAMIC #### [place] [address] Urobilinogen (U) [Mass/Vol] Negative Normal Neg-Trace [facility] ([place]) Comment on above: Performed By: #### U A, UAMIC #### [address] [address] UAMICon 11-13-2021 UA Amorphus 3+ /hpf Normal [facility] ([place]) Comment on above: Performed By: #### U A, UAMIC #### [address] [address] UA Bacteria Negative Normal Negative [facility] ([place]) Comment on above: Performed By: #### U A, UAMIC #### [address] [address] UA Mucous 1+ /hpf Normal [facility] ([place]) Comment on above: Performed By: #### U A, UAMIC #### [address] [address] UA RBC Negative Normal 0-2 [facility] ([place]) Comment on above: Performed By: #### U A, UAMIC #### [place] [id number] UA Squam Epithelial Negative Normal 0-20 [facility] ([place]) Comment on above: Performed By: #### U A, UAMIC #### [address] [address] UA WBC Rare Normal 0-5 [facility] ([place]) Comment on above: Performed By: #### U A, UAMIC #### [address] [address] Laboratory - Chemistry and C hemistry - challengeon 11-06-2021 Albumin [Mass/Vol] 3.4 g/dL Normal 3.4 - 5.0 g/dL [facility]; [facility] Work Phone: Albumin [Mass/Vol] 1.0 g/dL Normal 0.9 - 1.6 [facility]; [facility] Work Phone: ALT [Catalytic activity/Vol] 18 U/L Normal 16 - 63 U/L [facility]; [facility] Work Phone: Anion gap [Moles/Vol] 16 mmol/L Normal 10 - 20 mmol/L [facility]; [facility]. Work Phone: AST [Catalytic activity/Vol] 16 U/L Normal 15 - 37 U/L [facility]; [facility]. Work Phone: Bilirubin [Mass/Vol] 0.5 mg/dL Normal 0.2 - 1 .0 mg/dL [facility]; [facility] Work Phone: Calcium [Mass/Vol] 8.5 mg/dL Normal 8.5 - 10. 1 mg/dL [facility]; [facility]. Work Phone: Chloride [Moles/Vol] 106 mmol/L Normal 98 - 10 7 mmol/L [facility]; [facility]. Work Phone: Cholesterol [Mass/Vol] 138 mg/dL Normal 0 - 240 mg/dL [facility]; [facility]. Work Phone: Cholesterol in HDL [Mass or moles/Vol] 53 mg/dL Normal 40 - 60 mg/dL [facility]; [facility]. Work Phone: Cholesterol in LDL [Mass/Vol] 57 mg/dL Normal 0 - 129 mg/dL [facility]; [facility]. Work Phone: Cholesterol.total/Ch olesterol in HDL [Mass ratio] 2.6 {ratio} Normal 0.0 - 5.0 [facility]; [facility], [facility] Work Phone: CO2 [Moles/Vol] 21.4 mmol/L Normal 21.0 - 32.0 mmol/L [facility]; [facility] Work Phone: Creatinine [Mass/Vol] 1.58 mg/dL Abnormal 0.70 - 1.30 mg/dL [facility]; [facility] Work Phone: GFR/1.73 sq M.predicted among blacks MDRD (S/P/Bld) [Vol rate/Area] 51 {ML/MINUTE} Abnormal 60 - 999 {ML/MINUTE} [facility]; [facility]. Work Phone: GFR/1.73 sq M.predicted MDRD (S/P/Bld) [Vol rate/Area] 42 {ML/MINUTE} Abnormal 60 - 999 {ML/MINUTE} [facility].; [facility], [facility]. Work Phone: Globulin (S) [Mass/Vol] 3.3 g/dL Normal 1.5 - 3.8 g/dL [facility]; [facility]. Work Phone: Glucose [Mass/Vol] 98 mg/dL Normal 74 - 106 mg/dL [facility]; [facility] Work Phone: Lipid 1996 panel Normal [facility]; [facility] Work Phone: Potassium [Moles/Vol] 4.2 mmol/L Normal 3.5 - 5.1 mmol/L [facility]; [facility] Work Phone: Protein [Mass/Vol] 6.7 g/dL Normal 6.4 - 8.2 g/dL [facility]; [facility] Work Phone: Sodium [Moles/Vol] 139 mmol/L Normal 136 - 145 mmol/L [facility]; [facility] Work Phone: Triglyceride [Mass/Vol] 139 mg/dL Normal 0 - 150 mg/dL [facility]; [facility] Work Phone: TSH Qn 4.28 m[IU]/L Abnormal 0.35 - 3.74 {uIU/ml} [facility]; [facility] Work Phone: Urea nitrogen [Mass/Vol] 28 mg/dL Abnormal 7 - 18 mg/dL [facility]; [facility] Work Phone: Urea nitrogen/Creatinine [Mass ratio] 18 {ratio} Normal 0 - 30 {ratio} [facility]; [facility] Work Phone: Laboratory - Hematology and Cell countson 11-06-2021 Basophils (Bld) [#/Vol] 0.10 {x10EE3/UL} Normal 0.00 - 0.10 {x10EE3/UL} [facility]; [facility] Work Phone: Basophils/100 WBC (Bld) 1.9 % Normal 0.0 - 2.0 % [facility]; [facility] Work Phone: Eosinophils (Bld) [#/Vol] 0.30 {x10EE3/UL} Normal 0.00 - 0.50 {x10EE3/UL} [facility]; [facility] Work Phone: Eosinophils/100 WBC (Bld) 4.9 % Normal 0.0 - 7.0 % [facility]; [facility] Work Phone: Erythrocyte distribution width (RBC) [Ratio] 16.4 % Abnormal 12.0 - 15.6 % [facility]; [facility] Work Phone: HbA1c (Bld) [Mass fraction] 5.4 % Normal 4.3 - 5.6 % [facility]; [facility] Work Phone: Hematocrit (Bld) [Volume fraction] 37.9 % Abnormal 40.0 - 52.0 % [facility]; [facility] Work Phone: Hemoglobin (Bld) [Mass/Vol] 12.8 g/dL Abnormal 13.0 - 17.5 g/dL [facility]; [facility] Work Phone: Lymphocytes (Bld) [#/Vol] 2.80 {x10EE3/UL} Normal 0.80 - 2.80 {x10EE3/UL} [facility]; [facility] Work Phone: Lymphocytes/100 WBC (Bld) 50.4 % Abnormal 20.0 - 45.0 % [facility]; [facility] Work Phone: MCH (RBC) [Entitic mass] 34 pg Abnormal 27 - 33 pg [facility]; [facility] Work Phone: MCHC (RBC) [Mass/Vol] 34 {X10_3} Normal 32 - 36 {X10_3} [facility]; [facility] [facility] Work Phone: MCV (RBC) [Entitic vol] 102 fL Abnormal 81 - 98 fL [facility]; [facility] Work Phone: Monocytes (Bld) [#/Vol] 0.60 {x10EE3/UL} Normal 0.20 - 1.00 {x10EE3/UL} [facility]. Work Phone: Monocytes/100 WBC (Bld) 10.8 % Abnormal 0.0 - 10.0 % [facility]; [facility]. Work Phone: Morphology Ernesto (Bld) [Interp] N/A Normal [facility]; [facility]. Work Phone: Neutrophils (Bld) [#/Vol] 1.80 {x10EE3/UL} Normal 1.50 - 7.10 {x10EE3/UL} [facility].; [facility]. Work Phone: Neutrophils/100 WBC (Bld) 32.0 % Abnormal 46.0 - 76.0 % [facility]; [facility]. Work Phone: Platelet mean volume (Bld) [Entitic vol] 8.0 fL Normal 6.4 - 10.5 fL [facility]; [facility]. Work Phone: Platelets (Bld) [#/Vol] 165 {x10EE3/UL} Normal 150 - 450 {x10EE3/UL} [facility]; [facility]. Work Phone: RBC (Bld) [#/Vol] 3.74 {x_10EE6/UL} Abnormal 4.50 - 6.00 {x_10EE6/UL} [facility].; [facility], [facility]. Work Phone: WBC (Bld) [#/Vol] 5.6 {x_10EE3/UL} Normal 4.5 - 10.8 {x_10EE3/UL} [facility]; [facility]. Work Phone: No Panel Informationon 11-06 AGE 81 {years} Normal [facility]. Work Phone: ALK PHOS 49 U/L Normal 46 - 116 U/L [facility] [employer] [facility]. Work Phone: CBC + DIFF Normal [facility] [employer] [facility]. Work Phone: CMP with eGFR Normal [facility] [place]; [employer] [facility]. Work Phone: Hemoglobin A0 108 mg/dL Normal [facility].; [facility]. Work Phone: MANUAL DIFF N/A Normal [facility] [place]; [facility]. Work Phone: MICROALBUMIN UR 1.1 mg/dL Normal 0.1 - 25.1 mg/dL [facility] [place]; [facility]. Work Phone: XR Lumbar spine AP and Later manjula 07-26-2021 IMPRESSION: NO SIGNIFICANT CHANGE Night Stocker: GUILLERMO Transcribe Date/Time: Jul 26 2021 12:53P Dictated by : ALEJANDRO MILLER MD This examination was interpreted and the report reviewed and electronically signed by: ALEJANDRO MILLER MD on Jul 26 2021 12:54PM [facility] DIVISION OF RADIOLOGY * * *Final Report* * * DATE OF EXAM: Jul 26 2021 11:56AM SOX 5229 - XR LUMBAR 2V AP/LAT / PROCEDURE REASON: multiple diagnoses * * * * Physician Interpretation * * * * HISTORY (as given from clinical provider): Spinal stenosis, lumbar region with neurogenic claudication S/P lumbar fusion . Additional history provided by the performing technologist (if any): post op inj TECHNIQUE: XR LUMBAR 2V AP/LAT Laterality: NOT APPLICABLE Views: 2 COMPARISON: 03/08/2021 RESULT: Counting reference: Lumbosacral junction. For the purposes of this report, L4-5 is considered the level of the iliac crest and there are 5 lumbar-type vertebrae. Anatomic Variants: None. Mild dextroscoliosis. Posterior decompression and fusion L3-L5 using bilateral rods and pedicle screws. The hardware is intact. No evidence of loosening. Severe disc narrowing L2-3 and L3-4 compatible with severe degenerative disc disease. Milder degenerative disc disease in the upper lumbar spine. Normal SI joints. No other significant abnormality. DIVISION OF RADIOLOGY Provider, [facility] Juanita [facility] - 07/26/2021 * * *Final Report* * * DATE OF EXAM: Jul 26 2021 11:56AM SOX 5229 - XR LUMBAR 2V AP/LAT / PROCEDURE REASON: multiple diagnoses * * * * Physician Interpretation * * * * HISTORY (as given from clinical provider): Spinal stenosis, lumbar region with neurogenic claudication S/P lumbar fusion . Additional history provided by the performing technologist (if any): post op inj TECHNIQUE: XR LUMBAR 2V AP/LAT Laterality: NOT APPLICABLE Views: 2 COMPARISON: 03/08/2021 RESULT: Counting reference: Lumbosacral junction. For the purposes of this report, L4-5 is considered the level of the iliac crest and there are 5 lumbar-type vertebrae. Anatomic Variants: None. Mild dextroscoliosis. Posterior decompression and fusion L3-L5 using bilateral rods and pedicle screws. The hardware is intact. No evidence of loosening. Severe disc narrowing L2-3 and L3-4 compatible with severe degenerative disc disease. Milder degenerative disc disease in the upper lumbar spine. Normal SI joints. No other significant abnormality. IMPRESSION IMPRESSION: NO SIGNIFICANT CHANGE Night Stocker: GUILLERMO Transcribe Date/Time: Jul 26 2021 12:53P Dictated by : ALEJANDRO MILLER MD This examination was interpreted and the report reviewed and electronically signed by: ALEJANDRO MILLER MD on Jul 26 2021 12:54PM EST [facility] Radiology Study observation (narrative) [facility] XR Lumbar spine AP and Later alOrdered By: Ccf Provider on 07-26-2021 [facility] Hemoglobin A1con 04-08-2021 Glucose [Mass/Vol] 103 mg/dL Normal [facility] Reference Lab Comment on above: Performed By: #### H BA1C #### [facility] Routine Lab [address], [place] [address] HbA1c (Bld) [Mass fraction] 5.2 % Normal 4.3-5.6 [facility] Reference Lab Comment on above: Performed By: #### H BA1C #### [facility] Routine Lab [address], [place] [address] Laboratory - Chemistry and C hemistry - challengeon 04-05-2021 Albumin [Mass/Vol] 3.4 g/dL Normal 3.4 - 5.0 g/dL [facility]; [facility] Work Phone: Albumin [Mass/Vol] 1.1 g/dL Normal 0.9 - 1.6 [facility]; [facility] Work Phone: ALT [Catalytic activity/Vol] 15 U/L Abnormal 16 - 63 U/L [facility]; [facility] Work Phone: Anion gap [Moles/Vol] 13 mmol/L Normal 10 - 20 mmol/L [facility]; [facility] Work Phone: AST [Catalytic activity/Vol] 12 U/L Abnormal 15 - 37 U/L [facility]; [facility] Work Phone: Bilirubin [Mass/Vol] 0.6 mg/dL Normal 0.2 - 1 .0 mg/dL [facility]; [facility]. Work Phone: Bilirubin [Mass/Vol] Negative Normal [facility]; [facility] Work Phone: Calcium [Mass/Vol] 8.3 mg/dL Abnormal 8.5 - 10. 1 mg/dL [facility]; [facility] Work Phone: Chloride [Moles/Vol] 108 mmol/L Abnormal 98 - 10 7 mmol/L [facility]; [facility] Work Phone: Cholesterol [Mass/Vol] 150 mg/dL Normal 0 - 240 mg/dL [facility]; [facility] Work Phone: Cholesterol in HDL [Mass or moles/Vol] 56 mg/dL Normal 40 - 60 mg/dL [facility]; [facility] Work Phone: Cholesterol in LDL [Mass/Vol] 75 mg/dL Normal 0 - 129 mg/dL [facility]; [facility] Work Phone: Cholesterol.total/Ch olesterol in HDL [Mass ratio] 2.7 {ratio} Normal 0.0 - 5.0 [facility]; [facility] Work Phone: CO2 [Moles/Vol] 25.3 mmol/L Normal 21.0 - 32.0 mmol/L [facility]; [facility] Work Phone: Creatinine [Mass/Vol] 1.64 mg/dL Abnormal 0.70 - 1.30 mg/dL [facility]; [facility] Work Phone: GFR/1.73 sq M.predicted among blacks MDRD (S/P/Bld) [Vol rate/Area] 49 {ML/MINUTE} Abnormal 60 - 999 {ML/MINUTE} [facility]; [facility]. Work Phone: GFR/1.73 sq M.predicted MDRD (S/P/Bld) [Vol rate/Area] 40 {ML/MINUTE} Abnormal 60 - 999 {ML/MINUTE} [facility].; [facility], [facility]. Work Phone: Globulin (S) [Mass/Vol] 3.1 g/dL Normal 1.5 - 3.8 g/dL [facility]; [facility] Work Phone: Glucose [Mass/Vol] 97 mg/dL Normal 74 - 106 mg/dL [facility]; [facility], [facility]. Work Phone: Glucose [Mass/Vol] 103 mg/dL Normal [facility]; [facility], [facility]. Work Phone: Glucose [Mass/Vol] NORM Normal [facility]; [facility], [facility]. Work Phone: Lipid 1996 panel Normal [facility]; [facility], [facility]. Work Phone: pH (Bld) 7 [pH] Normal [facility]; [facility], [facility] Work Phone: Potassium [Moles/Vol] 4.6 mmol/L Normal 3.5 - 5.1 mmol/L [facility]; [facility], [facility] Work Phone: Protein [Mass/Vol] 6.5 g/dL Normal 6.4 - 8.2 g/dL [facility]; [facility]. Work Phone: Protein [Mass/Vol] Negative Normal [facility]; [facility] Work Phone: Sodium [Moles/Vol] 142 mmol/L Normal 136 - 145 mmol/L [facility]; [facility] Work Phone: Triglyceride [Mass/Vol] 97 mg/dL Normal 0 - 150 mg/dL [facility]; [facility] Work Phone: TSH Qn 4.05 m[IU]/L Abnormal 0.35 - 3.74 {uIU/ml} [facility]; [facility] Work Phone: Urea nitrogen [Mass/Vol] 26 mg/dL Abnormal 7 - 18 mg/dL [facility]; [facility] Work Phone: Urea nitrogen/Creatinine [Mass ratio] 16 {ratio} Normal 0 - 30 {ratio} [facility]; [facility] Work Phone: Laboratory - Hematology and Cell countson 04-05-2021 Basophils (Bld) [#/Vol] 0.00 {x10EE3/UL} Normal 0.00 - 0.10 {x10EE3/UL} [facility]; [facility] Work Phone: Basophils/100 WBC (Bld) 0.6 % Normal 0.0 - 2.0 % [facility]; [facility] Work Phone: Eosinophils (Bld) [#/Vol] 0.10 {x10EE3/UL} Normal 0.00 - 0.50 {x10EE3/UL} [facility]; [facility] Work Phone: Eosinophils/100 WBC (Bld) 3.0 % Normal 0.0 - 7.0 % [facility]; [facility] Work Phone: Erythrocyte distribution width (RBC) [Ratio] 16.8 % Abnormal 12.0 - 15.6 % [facility]; [facility] Work Phone: HbA1c (Bld) [Mass fraction] 5.2 % Normal 4.3 - 5.6 % [facility]; [facility] Work Phone: Hematocrit (Bld) [Volume fraction] 32.7 % Abnormal 40.0 - 52.0 % [facility]; [facility] Work Phone: Hemoglobin (Bld) [Mass/Vol] 11.4 g/dL Abnormal 13.0 - 17.5 g/dL [facility]; [facility]. Work Phone: Lymphocytes (Bld) [#/Vol] 1.30 {x10EE3/UL} Normal 0.80 - 2.80 {x10EE3/UL} [facility]; [facility] Work Phone: Lymphocytes/100 WBC (Bld) 31.2 % Normal 20.0 - 45.0 % [facility]; [facility]. Work Phone: MCH (RBC) [Entitic mass] 37 pg Abnormal 27 - 33 pg [facility]; [facility] Work Phone: MCHC (RBC) [Mass/Vol] 35 {X10_3} Normal 32 - 36 {X10_3} [facility]; [facility] Work Phone: MCV (RBC) [Entitic vol] 106 fL Abnormal 81 - 98 fL [facility] [place]; [facility]. Work Phone: Monocytes (Bld) [#/Vol] 0.70 {x10EE3/UL} Normal 0.20 - 1.00 {x10EE3/UL} [facility].; [facility]. Work Phone: Monocytes/100 WBC (Bld) 17.2 % Abnormal 0.0 - 10.0 % [facility].; [facility]. Work Phone: Morphology Ernesto (Bld) [Interp] REVIEWED Normal [facility]; [facility]. Work Phone: Neutrophils (Bld) [#/Vol] 2.10 {x10EE3/UL} Normal 1.50 - 7.10 {x10EE3/UL} [facility].; [facility]. Work Phone: Neutrophils/100 WBC (Bld) 48.0 % Normal 46.0 - 76.0 % [facility]; [facility]. Work Phone: Platelet mean volume (Bld) [Entitic vol] 8.0 fL Normal 6.4 - 10.5 fL [facility] [place]; [facility]. Work Phone: Platelets (Bld) [#/Vol] 137 {x10EE3/UL} Abnormal 150 - 450 {x10EE3/UL} [facility] [place]; [facility] [employer] Work Phone: RBC (Bld) [#/Vol] 3.09 {x_10EE6/UL} Abnormal 4.50 - 6.00 {x_10EE6/UL} [facility] [place]; [facility] Work Phone: WBC (Bld) [#/Vol] 4.3 {x_10EE3/UL} Abnormal 4.5 - 10.8 {x_10EE3/UL} [facility].; [facility] Work Phone: WBC (Bld) [#/Vol] Negative Normal [facility].; [facility] Work Phone: Laboratory - Specimen inform ationon 04-05-2021 Clarity (U) clear Normal [facility].; [facility], [facility]. Work Phone: Color (U) p.yel Normal [facility].; [facility], [facility]. Work Phone: Laboratory - Urinalysison Nitrite Ql (U) Negative Normal [facility].; [facility] Work Phone: No Panel Informationon 04-05 AGE 81 {years} Normal [facility].; [facility], [facility]. Work Phone: ALK PHOS 48 U/L Normal 46 - 116 U/L [facility].; [facility], [facility]. Work Phone: Blood Negative Normal [facility].; [facility], [facility]. Work Phone: CBC + DIFF Normal [facility].; [facility], [facility]. Work Phone: CMP with eGFR Normal [facility].; [facility], [facility]. Work Phone: ERROR DUE TO ADD REVIEW Normal [facility].; [facility]. Work Phone: [phone] Ketone Negative Normal [facility].; [employer] [facility]. Work Phone: MANUAL DIFF N/A Normal [facility].; [facility]. Work Phone: MICROALBUMIN UR 0.6 mg/dL Normal 0.1 - 25.1 mg/dL [facility].; [facility]. Work Phone: Sp [place] 1.010 Normal [facility]; [facility]. Work Phone: URINALYSIS WITHOUT MICROSCOPY Normal [facility]; [employer] [facility]. Work Phone: Urobilinogen NORM Normal 0.2 - 1.0 [facility]; [employer] [facility]. Work Phone: XR Lumbar spine AP and Later manjula 03-09-2021 IMPRESSION: Postoperative lumbar spine without evidence of complication or significant change. Night Stocker: GUILLERMO Transcribe Date/Time: Mar 08 2021 1:06P Dictated by : NATALIE TARIQ MD This examination was interpreted and the report reviewed and electronically signed by: CIRO MCKEON MD on Mar 09 2021 11:38AM [facility] DIVISION OF RADIOLOGY * * *Final Report* * * DATE OF EXAM: Mar 08 2021 12:51PM SOX 5229 - XR LUMBAR 2V AP/LAT / PROCEDURE REASON: S/P lumbar fusion * * * * Physician Interpretation * * * * EXAMINATION: XR LUMBAR 2V AP/LAT HISTORY: pt here for follow up lumbar sx S/P lumbar fusion . TECHNIQUE: XR LUMBAR 2V AP/LAT Laterality: NOT APPLICABLE Number of different views (projections): 2 M: XB_1 COMPARISON: Lumbar spine radiographs, 07/28/2020 from outside facility, lumbar spine radiographs 06/24/2020. RESULT: Counting reference: Lumbosacral junction. For the purposes of this report, L4-5 is considered the level of the iliac crest and assume there are 5 lumbar-type vertebrae. Anatomic variant: None. Laminectomies L4-L5 and posterior fusion L3-L5 again noted. Hardware is intact without loosening. Mild dextroscoliotic deformity of the lumbar spine centered at L3. Multilevel degenerative disc disease, moderate intervertebral disc space narrowing at L3-4, unchanged. No fracture or loss of vertebral body height. DIVISION OF RADIOLOGY Provider, [facility] Juan[facility] - 03/09/2021 * * *Final Report* * * DATE OF EXAM: Mar 08 2021 12:51PM SOX 5229 - XR LUMBAR 2V AP/LAT / PROCEDURE REASON: S/P lumbar fusion * * * * Physician Interpretation * * * * EXAMINATION: XR LUMBAR 2V AP/LAT HISTORY: pt here for follow up lumbar sx S/P lumbar fusion . TECHNIQUE: XR LUMBAR 2V AP/LAT Laterality: NOT APPLICABLE Number of different views (projections): 2 M: XB_1 COMPARISON: Lumbar spine radiographs, 07/28/2020 from outside facility, lumbar spine radiographs 06/24/2020. RESULT: Counting reference: Lumbosacral junction. For the purposes of this report, L4-5 is considered the level of the iliac crest and assume there are 5 lumbar-type vertebrae. Anatomic variant: None. Laminectomies L4-L5 and posterior fusion L3-L5 again noted. Hardware is intact without loosening. Mild dextroscoliotic deformity of the lumbar spine centered at L3. Multilevel degenerative disc disease, moderate intervertebral disc space narrowing at L3-4, unchanged. No fracture or loss of vertebral body height. IMPRESSION IMPRESSION: Postoperative lumbar spine without evidence of complication or significant change. Night Stocker: PSCB Transcribe Date/Time: Mar 08 2021 1:06P Dictated by : NATALIE TARIQ MD This examination was interpreted and the report reviewed and electronically signed by: CIRO MCKEON MD on Mar 09 2021 11:38AM EST [facility] XR Lumbar spine AP and Later alOrdered By: Ccf Provider on 03-09-2021 [facility] XR Lumbar spine AP and Later manjula 03-08-2021 Radiology Study observation (narrative) [facility] Monclnl Protein, Seron 08-31 MPA Interpretation NOTI Normal [facility] Reference Lab Comment on above: Performed By: #### S ISAIAH WAITE #### [facility] Routine Lab [address] [address] MPA Result NOMP Normal No M protein is identified. [facility] Reference Lab Comment on above: Performed By: #### S ISAIAH WAITE #### [facility] Routine Lab [address] [address] Staff Review AZZATO Normal [facility] Reference Lab Comment on above: Performed By: #### S ISAIAH WAITE #### [facility] Routine Lab [address] [address] Prot Elect with IFEon 2020 Albumin [Mass/Vol] 2.57 g/dL Low 3.37-4.23 [facility] Reference Lab Comment on above: Performed By: #### S ISAIAH WAITE #### [facility] Routine Lab [address] [phone] Alpha 1 Globulin 0.36 gm/dL High 0.18-0.31 [facility] Reference Lab Comment on above: Performed By: #### S ISAIAH WAITE #### [facility] Routine Lab [address] [phone] Alpha 2 Globulin 0.86 gm/dL Normal 0.52-0.97 [facility] Reference Lab Comment on above: Performed By: #### S EPJANET SERMPBoston #### [facility] Routine Lab [address] [phone] Beta Globulin 0.68 gm/dL Low 0.84-1.36 [facility] Reference Lab Comment on above: Performed By: #### S ISAIAH WAITE #### [facility] Routine Lab [address] [phone] Comment NIF Normal [facility] Reference Lab Comment on above: Performed By: #### S ISAIAH WAITE #### [facility] Routine Lab [address] [address] Gamma Globulin 0.84 gm/dL Normal 0.70-1.44 [facility] Reference Lab Comment on above: Performed By: #### S EPGRX, SERMPA #### [facility] Routine Lab [address] [id number] Interpretation NMPD Normal [facility] Reference Lab Comment on above: Performed By: #### S EPGRX, SERMPA #### [facility] Routine Lab [address] [address] M Protein Location NAPP Normal [facility] Reference Lab Comment on above: Performed By: #### S EPGRX, SERMPA #### [facility] Routine Lab [address] [address] M Ken Concentratn 0.00 gm/dL Normal 0.00 [facility] Reference Lab Comment on above: Performed By: #### S EPGRX, SERMPA #### [facility] Routine Lab [address] [address] SPE Staff Review AZZATO Normal [facility] Reference Lab Comment on above: Performed By: #### S EPGRX, SERMPA #### [facility] Routine Lab [address] [id number] Laboratory - Chemistry and C hemistry - challengeon 08-30-2020 Anion gap [Moles/Vol] 9 mmol/L Abnormal 10 - 20 mmol/L [facility].; [facility]. Work Phone: Calcium [Mass/Vol] 7.8 mg/dL Abnormal 8.5 - 10. 1 mg/dL [facility].; [facility], [facility]. Work Phone: Chloride [Moles/Vol] 105 mmol/L Normal 98 - 10 7 mmol/L [facility]; [facility] Work Phone: CO2 [Moles/Vol] 29.9 mmol/L Normal 21.0 - 32.0 mmol/L [facility]; [facility] Work Phone: Creatinine [Mass/Vol] 1.3 mg/dL Normal 0.7 - 1.3 mg/dL [facility]; [facility] Work Phone: GFR/1.73 sq M.predicted among blacks MDRD (S/P/Bld) [Vol rate/Area] mL/min/{1.73_m2} Normal 60 - 999 {ML/MINUTE} [facility]; [facility] Work Phone: GFR/1.73 sq M.predicted MDRD (S/P/Bld) [Vol rate/Area] 53 {ML/MINUTE} Abnormal 60 - 999 {ML/MINUTE} [facility]; [facility], [facility]. Work Phone: Glucose [Mass/Vol] 97 mg/dL Normal 74 - 106 mg/dL [facility]; [facility] Work Phone: Potassium [Moles/Vol] 3.1 mmol/L Abnormal 3.5 - 5.1 mmol/L [facility]; [facility] Work Phone: Sodium [Moles/Vol] 141 mmol/L Normal 136 - 145 mmol/L [facility]; [facility] Work Phone: Urea nitrogen [Mass/Vol] 18 mg/dL Normal 7 - 18 mg/dL [facility]; [facility], [facility] Work Phone: Monclnl Protein, Seron 08-30 K/L Ratio, Serum 1.20 Normal 0.26-1.65 [facility] Comment on above: Performed By: #### S EPJANET SERMPA #### [facility] Routine Lab [address], [place] [address] [place], Free, Serum 73.5 mg/L High 3.30-19.40 [facility] Reference Lab Comment on above: Performed By: #### S EPGRBinta SERMPA #### [facility] Routine Lab [address], [place] [address] [place], Free, Serum 61.3 mg/L High 5.7-26.3 [facility] Reference Lab Comment on above: Performed By: #### S EPGRX SERMPA #### [facility] Routine Lab [address], [place] [address] MPA Serum IgA 197 mg/dL Normal 70-400 [facility] Reference [facility] Comment on above: Performed By: #### S EPGRX SERMPA #### [facility] Routine Lab [address] [place], [place] [address] MPA Serum IgG 1016 mg/dL Normal 700-1600 [facility] Comment on above: Performed By: #### S EPGRX SERMPA #### [facility] Routine Lab [address] [place], [place] [address] MPA Serum IgM 44 mg/dL Normal 40-230 [facility] Comment on above: Performed By: #### S EPGRX SERMPA #### [facility] Routine Lab [address] [place], [place] [address] No Panel Informationon 08-30 AGE 80 {years} Normal [facility]. Work Phone: BMP with eGFR Normal [facility] [place]; [facility] Work Phone: Prot Elect with IFEon 2020 Protein [Mass/Vol] 5.3 g/dL Low 6.3-8.0 [facility] Reference Lab Comment on above: Performed By: #### S ISAIAH WAITE #### [facility] Routine Lab [address] [place], [place] [address] Laboratory - Chemistry and C hemistry - challengeon 08-28-2020 Albumin [Mass/Vol] 2.57 g/dL Abnormal 3.37 - 4. 23 {gm/dL} [facility]; [facility] Work Phone: Albumin [Mass/Vol] 2.1 g/dL Abnormal 3.4 - 5.0 g/dL [facility]; [facility], [facility] Work Phone: Albumin [Mass/Vol] 0.6 g/dL Abnormal 0.9 - 1.6 [facility]; [facility] Work Phone: ALT [Catalytic activity/Vol] 29 U/L Normal 16 - 63 U/L [facility]; [facility] Work Phone: Anion gap [Moles/Vol] 13 mmol/L Normal 10 - 20 mmol/L [facility]; [facility] Work Phone: AST [Catalytic activity/Vol] 21 U/L Normal 15 - 37 U/L [facility]; [facility] Work Phone: Bilirubin [Mass/Vol] 0.4 mg/dL Normal 0.2 - 1 .0 mg/dL [facility]; [facility], [facility] Work Phone: Calcium [Mass/Vol] 8.1 mg/dL Abnormal 8.5 - 10. 1 mg/dL [facility]; [facility] Work Phone: Chloride [Moles/Vol] 104 mmol/L Normal 98 - 10 7 mmol/L [facility]; [facility] Work Phone: CO2 [Moles/Vol] 28.1 mmol/L Normal 21.0 - 32.0 mmol/L [facility]; [facility] Work Phone: Creatinine [Mass/Vol] 1.3 mg/dL Normal 0.7 - 1.3 mg/dL [facility]; [facility] Work Phone: GFR/1.73 sq M.predicted among blacks MDRD (S/P/Bld) [Vol rate/Area] 64 {ML/MINUTE} Normal 60 - 999 {ML/MINUTE} [facility]; [facility] Work Phone: GFR/1.73 sq M.predicted MDRD (S/P/Bld) [Vol rate/Area] 53 {ML/MINUTE} Abnormal 60 - 999 {ML/MINUTE} [facility].; [facility], [facility]. Work Phone: Globulin (S) [Mass/Vol] 3.7 g/dL Normal 1.5 - 3.8 g/dL [facility]; [facility] Work Phone: Glucose [Mass/Vol] 95 mg/dL Normal 74 - 106 mg/dL [facility]; [facility] Work Phone: Magnesium [Mass/Vol] 1016 mg/dL Normal 700 - 1 600 mg/dL [facility]; [facility], [facility] Work Phone: Magnesium [Mass/Vol] 197 mg/dL Normal 70 - 400 mg/dL [facility]; [facility] Work Phone: Magnesium [Mass/Vol] 44 mg/dL Normal 40 - 230 mg/dL [facility]; [facility] Work Phone: Potassium [Moles/Vol] 2.9 mmol/L Abnormal 3.5 - 5.1 mmol/L [facility]; [facility] Work Phone: Protein [Mass/Vol] 5.3 g/dL Abnormal 6.3 - 8.0 g/dL [facility]; [facility] Work Phone: Protein [Mass/Vol] 5.8 g/dL Abnormal 6.4 - 8.2 g/dL [facility]; [facility] Work Phone: Sodium [Moles/Vol] 142 mmol/L Normal 136 - 145 mmol/L [facility]; [facility] Work Phone: Urea nitrogen [Mass/Vol] 19 mg/dL Abnormal 7 - 18 mg/dL [facility]; [facility] Work Phone: Urea nitrogen/Creatinine [Mass ratio] 15 {ratio} Normal 0 - 30 {ratio} [facility]; [facility] Work Phone: Laboratory - Hematology and Cell countson 08-28-2020 Basophils (Bld) [#/Vol] 0.10 {x10EE3/UL} Normal 0.00 - 0.10 {x10EE3/UL} [facility]; [facility], [facility] Work Phone: Basophils/100 WBC (Bld) 1.2 % Normal 0.0 - 2.0 % [facility]; [facility] Work Phone: Eosinophils (Bld) [#/Vol] 0.20 {x10EE3/UL} Normal 0.00 - 0.50 {x10EE3/UL} [facility]; [facility] Work Phone: Eosinophils/100 WBC (Bld) 2.8 % Normal 0.0 - 7.0 % [facility]; [facility] Work Phone: Erythrocyte distribution width (RBC) [Ratio] 16.4 % Abnormal 12.0 - 15.6 % [facility]; [facility] Work Phone: Hematocrit (Bld) [Volume fraction] 27.7 % Abnormal 40.0 - 52.0 % [facility]; [facility] Work Phone: Hemoglobin (Bld) [Mass/Vol] 9.6 g/dL Abnormal 13.0 - 17.5 g/dL [facility]; [facility] Work Phone: Lymphocytes (Bld) [#/Vol] 1.40 {x10EE3/UL} Normal 0.80 - 2.80 {x10EE3/UL} [facility]; [facility] Work Phone: Lymphocytes/100 WBC (Bld) 21.8 % Normal 20.0 - 45.0 % [facility]; [facility] Work Phone: MCH (RBC) [Entitic mass] 34 pg Abnormal 27 - 33 pg [facility]; [facility] Work Phone: MCHC (RBC) [Mass/Vol] 35 {X10_3} Normal 32 - 36 {X10_3} [facility]; [facility]. Work Phone: MCV (RBC) [Entitic vol] 97 fL Normal 81 - 98 fL [facility]; [facility] Work Phone: Monocytes (Bld) [#/Vol] 0.90 {x10EE3/UL} Normal 0.20 - 1.00 {x10EE3/UL} [facility]; [facility]. Work Phone: Monocytes/100 WBC (Bld) 14.7 % Abnormal 0.0 - 10.0 % [facility]; [facility]. Work Phone: Morphology Ernesto (Bld) [Interp] N/A Normal [facility]; [facility]. Work Phone: Neutrophils (Bld) [#/Vol] 3.80 {x10EE3/UL} Normal 1.50 - 7.10 {x10EE3/UL} [facility]; [facility]. Work Phone: Neutrophils/100 WBC (Bld) 59.5 % Normal 46.0 - 76.0 % [facility]; [facility] Work Phone: Platelet mean volume (Bld) [Entitic vol] 8.6 fL Normal 6.4 - 10.5 fL [facility]; [facility]. Work Phone: Platelets (Bld) [#/Vol] 332 {x10EE3/UL} Normal 150 - 450 {x10EE3/UL} [facility].; [facility]. Work Phone: RBC (Bld) [#/Vol] 2.86 {x_10EE6/UL} Abnormal 4.50 - 6.00 {x_10EE6/UL} [facility] [place]; [facility]. Work Phone: WBC (Bld) [#/Vol] 6.5 {x_10EE3/UL} Normal 4.5 - 10.8 {x_10EE3/UL} [facility]. Work Phone: No Panel Informationon 08-28 AGE 80 {years} Normal [facility] [place]; [facility]. Work Phone: ALK PHOS 64 U/L Normal 46 - 116 U/L [facility] [place]; [facility]. Work Phone: Alpha 1 Globulin 0.36 {gm/dL} Abnormal 0.18 - 0.31 {gm/dL} [facility] [place]; [place] [employer] [facility]. Work Phone: Alpha 2 Globulin 0.86 {gm/dL} Normal 0.52 - 0.97 {gm/dL} [facility] [place] [facility]. Work Phone: Beta Globulin 0.68 {gm/dL} Abnormal 0.84 - 1.36 {gm/dL} [facility] [place]; [place] [employer] [facility]. Work Phone: CBC + DIFF Normal [facility]; [employer] [facility]. Work Phone: CMP with eGFR Normal [facility] [place]; [facility]. Work Phone: Comment Monoclonal Protein analysis (immunofixation) is not indicated. Normal [facility] [place]; [employer] [facility]. Work Phone: Gamma Globulin 0.84 {gm/dL} Normal 0.70 - 1.44 {gm/dL} [facility]; [facility] Work Phone: Interpretation No definitive M prot ein is identified on protein electrophoresis. Normal [facility]; [facility] Work Phone: K/L Ratio, Serum 1.20 Normal 0.26 - 1.65 [facility]; [facility] Work Phone: [place], Free, Serum 73.5 mg/L Abnormal 3.30 - 19 .40 mg/L [facility]; [facility] Work Phone: [place], Free, Serum 61.3 mg/L Abnormal 5.7 - 26 .3 mg/L [facility]; [facility] Work Phone: M Protein Location N/A Normal [facility]; [facility] Work Phone: M Ken Concentratn 0.00 {gm/dL} Normal [facility]; [facility] Work Phone: MANUAL DIFF N/A Normal [facility]; [facility] Work Phone: MPA Interpretation Test Not Indicated Normal [facility]; [facility] Work Phone: MPA Result No M protein is identified. Normal [facility]; [facility] Work Phone: SPE Staff Review Reviewed by Gayathri Bernal M.D., Ph.D ([id number]) [facility]; [facility] Work Phone: Staff Review Reviewed by Gayathri Bernal M.D., Ph.D ([id number]) [facility]; [facility] Work Phone: Hemoglobin A1con 05-05-2020 Glucose [Mass/Vol] 105 mg/dL Normal [facility] and [facility] Reference Lab Comment on above: Performed By: #### H BA1C #### [facility] Routine Lab [address], [place] [address] HbA1c (Bld) [Mass fraction] 5.3 % Normal 4.3-5.6 [facility] Comment on above: Performed By: #### H BA1C #### [facility] Routine Lab [address], [place] [address] Laboratory - Chemistry and C hemistry - challengeon 08-05-2019 Albumin [Mass/Vol] 4.1 g/dL Normal 3.4 - 4.8 g/dL [facility]; [facility] Work Phone: Albumin [Mass/Vol] 1.6 g/dL Normal 0.9 - 1.6 [facility]; [facility] Work Phone: ALT [Catalytic activity/Vol] 22 U/L Normal 10 - 40 U/L [facility]; [facility] Work Phone: Anion gap [Moles/Vol] 14 mmol/L Normal 10 - 20 mmol/L [facility]; [facility] Work Phone: AST [Catalytic activity/Vol] 20 U/L Normal 13 - 39 U/L [facility]; [facility] Work Phone: Bilirubin [Mass/Vol] Negative Normal [facility]; [facility] Work Phone: Bilirubin [Mass/Vol] 0.8 mg/dL Normal 0.0 - 1 .5 mg/dL [facility]; [facility] Work Phone: Calcium [Mass/Vol] 9.4 mg/dL Normal 8.6 - 10. 2 mg/dL [facility]; [facility] Work Phone: Chloride [Moles/Vol] 105 mmol/L Normal 98 - 10 7 mmol/L [facility]; [facility] Work Phone: Cholesterol [Mass/Vol] 147 mg/dL Normal 0 - 200 mg/dL [facility]; [facility] Work Phone: Cholesterol in HDL [Mass or moles/Vol] 34 mg/dL Abnormal 40 - 60 mg/dL [facility]; [facility] Work Phone: Cholesterol in LDL [Mass/Vol] 90 mg/dL Normal 0 - 129 mg/dL [facility]; [facility] Work Phone: Cholesterol.total/Ch olesterol in HDL [Mass ratio] 4.3 {ratio} Normal 0.0 - 5.0 [facility]; [facility] Work Phone: CO2 [Moles/Vol] 24.7 mmol/L Normal 21.0 - 31.0 mmol/L [facility]; [facility] Work Phone: Creatinine [Mass/Vol] 1.7 mg/dL Abnormal 0.7 - 1.3 mg/dL [facility]; [facility] Work Phone: GFR/1.73 sq M.predicted among blacks MDRD (S/P/Bld) [Vol rate/Area] 47 {ML/MINUTE} Abnormal 60 - 999 {ML/MINUTE} [facility]; [facility] Work Phone: GFR/1.73 sq M.predicted MDRD (S/P/Bld) [Vol rate/Area] 39 {ML/MINUTE} Abnormal 60 - 999 {ML/MINUTE} [facility]; [facility], [facility]. Work Phone: Globulin (S) [Mass/Vol] 2.6 g/dL Normal 1.5 - 3.8 g/dL [facility]; [facility] Work Phone: Glucose [Mass/Vol] NORM Normal [facility]; [facility] Work Phone: Glucose [Mass/Vol] 116 mg/dL Abnormal 74 - 106 mg/dL [facility]; [facility] Work Phone: Glucose [Mass/Vol] 126 mg/dL Normal [facility]; [facility] Work Phone: Lipid 1996 panel Normal [facility]; [facility], [facility] Work Phone: pH (Bld) 6 [pH] Normal [facility]; [facility] Work Phone: Potassium [Moles/Vol] 4.3 mmol/L Normal 3.5 - 5.1 mmol/L [facility]; [facility] Work Phone: Prostate specific Ag [Mass/Vol] 2.65 ng/mL Normal 0.00 - 4.00 ng/mL [facility]; [facility] Work Phone: Protein [Mass/Vol] Negative Normal [facility]; [facility] Work Phone: Protein [Mass/Vol] 6.7 g/dL Normal 6.4 - 8.3 g/dL [facility]; [facility] Work Phone: Sodium [Moles/Vol] 139 mmol/L Normal 136 - 145 mmol/L [facility]; [facility] Work Phone: Triglyceride [Mass/Vol] 116 mg/dL Normal 0 - 150 mg/dL [facility]; [facility] Work Phone: TSH Qn 5.61 m[IU]/L Abnormal 0.34 - 5.60 {uIU/ml} [facility]; [facility] Work Phone: Urea nitrogen [Mass/Vol] 26 mg/dL Abnormal 6 - 20 mg/dL [facility]; [facility] Work Phone: Urea nitrogen/Creatinine [Mass ratio] 15 {ratio} Normal 0 - 30 {ratio} [facility]; [facility] Work Phone: Laboratory - Hematology and Cell countson 08-05-2019 Basophils (Bld) [#/Vol] 0.10 {x10EE3/UL} Normal 0.00 - 0.10 {x10EE3/UL} [facility]; [facility] Work Phone: Basophils/100 WBC (Bld) 0.7 % Normal 0.0 - 2.0 % [facility]; [facility] Work Phone: Eosinophils (Bld) [#/Vol] 0.10 {x10EE3/UL} Normal 0.00 - 0.50 {x10EE3/UL} [facility]; [facility] Work Phone: Eosinophils/100 WBC (Bld) 1.6 % Normal 0.0 - 7.0 % [facility]; [facility] Work Phone: Erythrocyte distribution width (RBC) [Ratio] 13.8 % Normal 12.0 - 15.6 % [facility]; [facility] Work Phone: HbA1c (Bld) [Mass fraction] 6.0 % Abnormal 4.3 - 5.6 % [facility]; [facility] Work Phone: Hematocrit (Bld) [Volume fraction] 45.3 % Normal 40.0 - 52.0 % [facility]; [facility] Work Phone: Hemoglobin (Bld) [Mass/Vol] 15.6 g/dL Normal 13.0 - 17.5 g/dL [facility]; [facility] Work Phone: Lymphocytes (Bld) [#/Vol] 2.40 {x10EE3/UL} Normal 0.80 - 2.80 {x10EE3/UL} [facility]; [facility] Work Phone: Lymphocytes/100 WBC (Bld) 34.8 % Normal 20.0 - 45.0 % [facility]; [facility] Work Phone: MCH (RBC) [Entitic mass] 32 pg Normal 27 - 33 pg [facility]; [facility] Work Phone: MCHC (RBC) [Mass/Vol] 35 {X10_3} Normal 32 - 36 {X10_3} [facility].; [facility]. Work Phone: MCV (RBC) [Entitic vol] 94 fL Normal 81 - 98 fL [facility].; [facility]. Work Phone: Monocytes (Bld) [#/Vol] 0.70 {x10EE3/UL} Normal 0.20 - 1.00 {x10EE3/UL} [facility].; [facility], [facility]. Work Phone: Monocytes/100 WBC (Bld) 9.6 % Normal 0.0 - 10.0 % [facility].; [facility]. Work Phone: Morphology Ernesto (Bld) [Interp] N/A Normal [facility]; [facility]. Work Phone: Neutrophils (Bld) [#/Vol] 3.70 {x10EE3/UL} Normal 1.50 - 7.10 {x10EE3/UL} [facility].; [facility], [facility]. Work Phone: Neutrophils/100 WBC (Bld) 53.3 % Normal 46.0 - 76.0 % [facility].; [facility], [facility]. Work Phone: Platelet mean volume (Bld) [Entitic vol] 8.4 fL Normal 6.4 - 10.5 fL [facility].; [facility], [facility]. Work Phone: Platelets (Bld) [#/Vol] 221 {x10EE3/UL} Normal 150 - 450 {x10EE3/UL} [facility].; [facility], [facility]. Work Phone: RBC (Bld) [#/Vol] 4.84 {x_10EE6/UL} Normal 4.50 - 6.00 {x_10EE6/UL} [facility], [employer]. Work Phone: WBC (Bld) [#/Vol] Negative Normal [facility].; [facility] Work Phone: WBC (Bld) [#/Vol] 6.9 {x_10EE3/UL} Normal 4.5 - 10.8 {x_10EE3/UL} [facility].; [facility], [facility]. Work Phone: Laboratory - Specimen inform ationon 08-05-2019 Clarity (U) clear Normal [facility], [facility]. Work Phone: Color (U) p.yel Normal [facility] Work Phone: Laboratory - Urinalysison Nitrite Ql (U) Negative Normal [facility].; [facility] [facility] [employer] Work Phone: No Panel Informationon 08-05 AGE 79 {years} Normal [facility].; [facility], [facility]. Work Phone: ALK PHOS 45 U/L Normal 38 - 126 U/L [facility].; [facility] [employer]. Work Phone: Blood Negative Normal [facility], [facility]. Work Phone: CBC + DIFF Normal [facility] [employer]. Work Phone: CMP with eGFR Normal [facility] [employer]. Work Phone: Ketone Negative Normal [facility]; [facility] Work Phone: MANUAL DIFF N/A Normal [facility]; [facility] Work Phone: MICROALBUMIN UR <0.7 Normal 0.1 - 25.1 mg/dL [facility]; [facility] Work Phone: Sp [place] 1.015 Normal [facility]; [facility] Work Phone: URINALYSIS WITHOUT MICROSCOPY Normal [facility]; [facility] Work Phone: Urobilinogen NORM Normal 0.2 - 1.0 [facility]; [facility] Work Phone: Laboratory - Chemistry and C hemistry - challengeon 04-08-2019 Albumin [Mass/Vol] 4.3 g/dL Normal 3.4 - 4.8 g/dL [facility]; [facility] Work Phone: Albumin [Mass/Vol] 1.6 g/dL Normal 0.9 - 1.6 [facility]; [facility] Work Phone: ALT [Catalytic activity/Vol] 17 U/L Normal 10 - 40 U/L [facility]; [facility] Work Phone: Anion gap [Moles/Vol] 12 mmol/L Normal 10 - 20 mmol/L [facility]; [facility], [facility] Work Phone: AST [Catalytic activity/Vol] 18 U/L Normal 13 - 39 U/L [facility]; [facility] Work Phone: Bilirubin [Mass/Vol] Negative Normal [facility]; [facility] Work Phone: Bilirubin [Mass/Vol] 0.7 mg/dL Normal 0.0 - 1 .5 mg/dL [facility]; [facility] Work Phone: Calcium [Mass/Vol] 9.5 mg/dL Normal 8.6 - 10. 2 mg/dL [facility]; [facility] Work Phone: Chloride [Moles/Vol] 104 mmol/L Normal 98 - 10 7 mmol/L [facility]; [facility] Work Phone: Cholesterol [Mass/Vol] 141 mg/dL Normal 0 - 200 mg/dL [facility]; [facility] Work Phone: Cholesterol in HDL [Mass or moles/Vol] 37 mg/dL Abnormal 40 - 60 mg/dL [facility]; [facility] Work Phone: Cholesterol in LDL [Mass/Vol] 79 mg/dL Normal 0 - 129 mg/dL [facility]; [facility] Work Phone: Cholesterol.total/Ch olesterol in HDL [Mass ratio] 3.8 {ratio} Normal 0.0 - 5.0 [facility]; [facility] Work Phone: CO2 [Moles/Vol] 29.9 mmol/L Normal 21.0 - 31.0 mmol/L [facility]; [facility] Work Phone: Creatinine [Mass/Vol] 1.6 mg/dL Abnormal 0.7 - 1.3 mg/dL [facility]; [facility], [facility]. Work Phone: GFR/1.73 sq M.predicted among blacks MDRD (S/P/Bld) [Vol rate/Area] 51 {ML/MINUTE} Abnormal 60 - 999 {ML/MINUTE} [facility]; [facility], [facility]. Work Phone: GFR/1.73 sq M.predicted MDRD (S/P/Bld) [Vol rate/Area] 42 {ML/MINUTE} Abnormal 60 - 999 {ML/MINUTE} [facility]; [facility], [facility]. Work Phone: Globulin (S) [Mass/Vol] 2.7 g/dL Normal 1.5 - 3.8 g/dL [facility]; [facility], [facility]. Work Phone: Glucose [Mass/Vol] NORM Normal [facility]; [facility], [facility]. Work Phone: Glucose [Mass/Vol] 112 mg/dL Abnormal 74 - 106 mg/dL [facility]; [facility], [facility]. Work Phone: Glucose [Mass/Vol] 114 mg/dL Normal [facility]; [facility], [facility]. Work Phone: Lipid 1996 panel Normal [facility]; [facility], [facility]. Work Phone: pH (Bld) 5 [pH] Normal [facility]; [facility] Work Phone: Potassium [Moles/Vol] 4.2 mmol/L Normal 3.5 - 5.1 mmol/L [facility]; [facility] Work Phone: Protein [Mass/Vol] Negative Normal [facility]; [facility] Work Phone: Protein [Mass/Vol] 7.0 g/dL Normal 6.4 - 8.3 g/dL [facility]; [facility] Work Phone: Sodium [Moles/Vol] 142 mmol/L Normal 136 - 145 mmol/L [facility]; [facility] Work Phone: Triglyceride [Mass/Vol] 125 mg/dL Normal 0 - 150 mg/dL [facility]; [facility] Work Phone: TSH Qn 5.28 m[IU]/L Normal 0.34 - 5.60 {uIU/ml} [facility]; [facility] Work Phone: Urea nitrogen [Mass/Vol] 23 mg/dL Abnormal 6 - 20 mg/dL [facility]; [facility] Work Phone: Urea nitrogen/Creatinine [Mass ratio] 14 {ratio} Normal 0 - 30 {ratio} [facility]; [facility] Work Phone: Laboratory - Hematology and Cell countson 04-08-2019 Basophils (Bld) [#/Vol] 0.10 {x10EE3/UL} Normal 0.00 - 0.10 {x10EE3/UL} [facility]; [facility] Work Phone: Basophils/100 WBC (Bld) 0.9 % Normal 0.0 - 2.0 % [facility]; [facility] Work Phone: Eosinophils (Bld) [#/Vol] 0.20 {x10EE3/UL} Normal 0.00 - 0.50 {x10EE3/UL} [facility]; [facility] Work Phone: Eosinophils/100 WBC (Bld) 2.4 % Normal 0.0 - 7.0 % [facility]; [facility] Work Phone: Erythrocyte distribution width (RBC) [Ratio] 13.9 % Normal 12.0 - 15.6 % [facility]; [facility] Work Phone: HbA1c (Bld) [Mass fraction] 5.6 % Normal 4.3 - 5.6 % [facility]; [facility] Work Phone: Hematocrit (Bld) [Volume fraction] 45.8 % Normal 40.0 - 52.0 % [facility]; [facility] Work Phone: Hemoglobin (Bld) [Mass/Vol] 15.8 g/dL Normal 13.0 - 17.5 g/dL [facility]; [facility] Work Phone: Lymphocytes (Bld) [#/Vol] 2.50 {x10EE3/UL} Normal 0.80 - 2.80 {x10EE3/UL} [facility]; [facility] Work Phone: Lymphocytes/100 WBC (Bld) 34.4 % Normal 20.0 - 45.0 % [facility]; [facility] Work Phone: MCH (RBC) [Entitic mass] 33 pg Normal 27 - 33 pg [facility]; [facility] Work Phone: MCHC (RBC) [Mass/Vol] 35 {X10_3} Normal 32 - 36 {X10_3} [facility].; [facility]. Work Phone: MCV (RBC) [Entitic vol] 96 fL Normal 81 - 98 fL [facility].; [facility]. Work Phone: Monocytes (Bld) [#/Vol] 0.50 {x10EE3/UL} Normal 0.20 - 1.00 {x10EE3/UL} [facility].; [facility], [facility]. Work Phone: Monocytes/100 WBC (Bld) 7.4 % Normal 0.0 - 10.0 % [facility].; [facility]. Work Phone: Morphology Ernesto (Bld) [Interp] N/A Normal [facility]; [facility]. Work Phone: Neutrophils (Bld) [#/Vol] 4.00 {x10EE3/UL} Normal 1.50 - 7.10 {x10EE3/UL} [facility].; [facility], [facility]. Work Phone: Neutrophils/100 WBC (Bld) 54.9 % Normal 46.0 - 76.0 % [facility].; [facility], [facility]. Work Phone: Platelet mean volume (Bld) [Entitic vol] 8.8 fL Normal 6.4 - 10.5 fL [facility].; [facility], [facility]. Work Phone: Platelets (Bld) [#/Vol] 240 {x10EE3/UL} Normal 150 - 450 {x10EE3/UL} [facility].; [facility], [facility]. Work Phone: RBC (Bld) [#/Vol] 4.75 {x_10EE6/UL} Normal 4.50 - 6.00 {x_10EE6/UL} [facility] Work Phone: WBC (Bld) [#/Vol] Negative Normal [facility] [place] [employer] [facility] Work Phone: WBC (Bld) [#/Vol] 7.3 {x_10EE3/UL} Normal 4.5 - 10.8 {x_10EE3/UL} [facility] Work Phone: Laboratory - Specimen inform ationon 04-08-2019 Clarity (U) clear Normal [facility] Work Phone: Color (U) yellow Normal [facility] Work Phone: Laboratory - Urinalysison Nitrite Ql (U) Negative Normal [facility] Work Phone: No Panel Informationon 04-08 AGE 79 {years} Normal [facility] [place] [employer] [facility] Work Phone: ALK PHOS 53 U/L Normal 38 - 126 U/L [facility] Work Phone: Blood Negative Normal [facility] Work Phone: CBC + DIFF Normal [facility] Work Phone: CMP with eGFR Normal [facility] Work Phone: Ketone Negative Normal [facility].; [facility]. Work Phone: MANUAL DIFF N/A Normal [facility].; [facility]. Work Phone: MICROALBUMIN UR <0.7 Normal 0.1 - 25.1 mg/dL [facility].; [facility]. Work Phone: Sp [place] 1.015 Normal [facility].; [facility]. Work Phone: URINALYSIS WITHOUT MICROSCOPY Normal [facility]; [facility]. Work Phone: Urobilinogen NORM Normal 0.2 - 1.0 [facility].; [facility] Work Phone: Laboratory - Chemistry and C hemistry - challengeon 12-28-2018 Free T4 [Mass/Vol] 0.84 ng/dL Normal 0.61 - 1. 12 ng/dL [facility]; [facility]. Work Phone: TSH Qn 3.76 m[IU]/L Normal 0.34 - 5.60 {uIU/ml} [facility].; [facility]. Work Phone: No Panel Informationon 12-28 T3, FREE [CCL] Normal [facility]; [facility]. Work Phone: Laboratory - Chemistry and C hemistry - challengeon 07-16-2018 Albumin [Mass/Vol] 4.1 g/dL Normal 3.4 - 4.8 g/dL [facility]; [facility] Work Phone: Albumin [Mass/Vol] 1.6 g/dL Normal 0.9 - 1.6 [facility]; [facility] Work Phone: ALT [Catalytic activity/Vol] 20 U/L Normal 10 - 40 U/L [facility]; [facility] Work Phone: Anion gap [Moles/Vol] 13 mmol/L Normal 10 - 20 mmol/L [facility]; [facility] Work Phone: AST [Catalytic activity/Vol] 19 U/L Normal 13 - 39 U/L [facility]; [facility] Work Phone: Bilirubin [Mass/Vol] Negative Normal [facility]; [facility] Work Phone: Bilirubin [Mass/Vol] 0.4 mg/dL Normal 0.0 - 1 .5 mg/dL [facility]; [facility] Work Phone: Calcium [Mass/Vol] 9.2 mg/dL Normal 8.6 - 10. 2 mg/dL [facility]; [facility] Work Phone: Chloride [Moles/Vol] 107 mmol/L Normal 98 - 10 7 mmol/L [facility]; [facility] Work Phone: Cholesterol [Mass/Vol] 138 mg/dL Normal 0 - 200 mg/dL [facility]; [facility] Work Phone: Cholesterol in HDL [Mass or moles/Vol] 39 mg/dL Abnormal 40 - 60 mg/dL [facility]; [facility] Work Phone: Cholesterol in LDL [Mass/Vol] 74 mg/dL Normal 0 - 129 mg/dL [facility]; [facility], [facility] Work Phone: Cholesterol.total/Ch olesterol in HDL [Mass ratio] 3.5 {ratio} Normal 0.0 - 5.0 [facility]; [facility], [facility] Work Phone: CO2 [Moles/Vol] 28.7 mmol/L Normal 21.0 - 31.0 mmol/L [facility]; [facility] Work Phone: Creatinine [Mass/Vol] 1.6 mg/dL Abnormal 0.7 - 1.3 mg/dL [facility]; [facility], [facility] Work Phone: GFR/1.73 sq M.predicted among blacks MDRD (S/P/Bld) [Vol rate/Area] 51 {ML/MINUTE} Abnormal 60 - 999 {ML/MINUTE} [facility]; [facility], [facility] Work Phone: GFR/1.73 sq M.predicted MDRD (S/P/Bld) [Vol rate/Area] 42 {ML/MINUTE} Abnormal 60 - 999 {ML/MINUTE} [facility].; [facility], [facility]. Work Phone: Globulin (S) [Mass/Vol] 2.5 g/dL Normal 1.5 - 3.8 g/dL [facility]; [facility], [facility] Work Phone: Glucose [Mass/Vol] NORM Normal [facility]; [facility], [facility] Work Phone: Glucose [Mass/Vol] 113 mg/dL Abnormal 74 - 106 mg/dL [facility]; [facility], [facility] Work Phone: Lipid 1996 panel Normal [facility]; [facility] Work Phone: pH (Bld) 6 [pH] Normal [facility]; [facility] Work Phone: Potassium [Moles/Vol] 3.9 mmol/L Normal 3.5 - 5.1 mmol/L [facility]; [facility] Work Phone: Protein [Mass/Vol] 15 g/dL Abnormal [facility]; [facility] Work Phone: Protein [Mass/Vol] 6.6 g/dL Normal 6.4 - 8.3 g/dL [facility]; [facility], [facility] Work Phone: Sodium [Moles/Vol] 145 mmol/L Normal 136 - 145 mmol/L [facility]; [facility], [facility] Work Phone: Triglyceride [Mass/Vol] 123 mg/dL Normal 0 - 150 mg/dL [facility]; [facility], [facility] Work Phone: TSH Qn 7.00 m[IU]/L Abnormal 0.34 - 5.60 {uIU/ml} [facility]; [facility] Work Phone: Urea nitrogen [Mass/Vol] 27 mg/dL Abnormal 6 - 20 mg/dL [facility]; [facility], [facility] Work Phone: Urea nitrogen/Creatinine [Mass ratio] 17 {ratio} Normal 0 - 30 {ratio} [facility]; [facility], [facility] Work Phone: Laboratory - Hematology and Cell countson 07-16-2018 Basophils (Bld) [#/Vol] 0.10 {x10EE3/UL} Normal 0.00 - 0.10 {x10EE3/UL} [facility]; [facility] Work Phone: Basophils/100 WBC (Bld) 1.2 % Normal 0.0 - 2.0 % [facility]; [facility]. Work Phone: CBC panel Auto (Bld) Normal [facility]; [facility]. Work Phone: Eosinophils (Bld) [#/Vol] 0.20 {x10EE3/UL} Normal 0.00 - 0.50 {x10EE3/UL} [facility].; [facility] Work Phone: Eosinophils/100 WBC (Bld) 3.4 % Normal 0.0 - 7.0 % [facility]; [facility] Work Phone: Erythrocyte distribution width (RBC) [Ratio] 13.6 % Normal 12.0 - 15.6 % [facility]; [facility], [facility] Work Phone: HbA1c (Bld) [Mass fraction] 5.8 % Normal 4.4 - 6.4 % [facility]; [facility] Work Phone: Hematocrit (Bld) [Volume fraction] 44.9 % Normal 40.0 - 52.0 % [facility]; [facility], [facility]. Work Phone: Hemoglobin (Bld) [Mass/Vol] 15.4 g/dL Normal 13.0 - 17.5 g/dL [facility]; [facility] Work Phone: Lymphocytes (Bld) [#/Vol] 2.90 {x10EE3/UL} Abnormal 0.80 - 2.80 {x10EE3/UL} [facility].; [facility]. Work Phone: Lymphocytes/100 WBC (Bld) 40.4 % Normal 20.0 - 45.0 % [facility].; [facility]. Work Phone: MCH (RBC) [Entitic mass] 32 pg Normal 27 - 33 pg [facility]; [facility]. Work Phone: MCHC (RBC) [Mass/Vol] 34 {X10_3} Normal 32 - 36 {X10_3} [facility].; [facility], [facility]. Work Phone: MCV (RBC) [Entitic vol] 95 fL Normal 81 - 98 fL [facility]; [facility], [facility]. Work Phone: Monocytes (Bld) [#/Vol] 0.60 {x10EE3/UL} Normal 0.20 - 1.00 {x10EE3/UL} [facility].; [facility], [facility]. Work Phone: Monocytes/100 WBC (Bld) 8.5 % Normal 0.0 - 10.0 % [facility]; [facility], [facility]. Work Phone: Morphology Ernesto (Bld) [Interp] N/A Normal [facility]; [facility]. Work Phone: Neutrophils (Bld) [#/Vol] 3.30 {x10EE3/UL} Normal 1.50 - 7.10 {x10EE3/UL} [facility].; [facility], [facility]. Work Phone: Neutrophils/100 WBC (Bld) 46.5 % Normal 46.0 - 76.0 % [facility] [employer] [facility]. Work Phone: Platelet mean volume (Bld) [Entitic vol] 9.1 fL Normal 6.4 - 10.5 fL [facility] [place] [employer] [facility], [employer] Work Phone: Platelets (Bld) [#/Vol] 214 {x10EE3/UL} Normal 150 - 450 {x10EE3/UL} [facility] [employer] Work Phone: RBC (Bld) [#/Vol] 4.75 {x_10EE6/UL} Normal 4.50 - 6.00 {x_10EE6/UL} [facility] [place] [employer] [facility] Work Phone: WBC (Bld) [#/Vol] Negative Normal [facility] [employer] [facility], [employer] Work Phone: WBC (Bld) [#/Vol] 7.1 {x_10EE3/UL} Normal 4.5 - 10.8 {x_10EE3/UL} [facility] [employer] Work Phone: Laboratory - Specimen inform ationon 07-16-2018 Clarity (U) clear Normal [facility] [employer] [employer]. Work Phone: Color (U) YELLOW Normal [facility] [employer] [place] [employer] [facility], [employer]. Work Phone: Laboratory - Urinalysison Nitrite Ql (U) Negative Normal [facility] [employer] Work Phone: No Panel Informationon 07-16 AGE 78 {years} Normal [facility] Work Phone: ALK PHOS 41 U/L Normal 38 - 126 U/L [facility] Work Phone: Blood Negative Normal [facility] Work Phone: CMP with eGFR Normal [facility].; [facility]. Work Phone: Ketone Negative Normal [facility]. Work Phone: MANUAL DIFF N/A Normal [facility] [facility] Work Phone: MICROALBUMIN UR <0.7 Normal 0.1 - 25.1 mg/dL [facility] Work Phone: Sp [place] 1.020 Normal [facility] Work Phone: URINALYSIS WITHOUT MICROSCOPY Normal [facility] [employer] [facility]. Work Phone: Urobilinogen NORM Normal 0.2 - 1.0 [facility] [employer] [facility] Work Phone: Laboratory - Chemistry and C hemistry - challengeon 04-16-2018 Bilirubin Ql (U) Negative Normal [facility], [employer] Ketones Ql (U) Negative Normal [facility] pH (U) 5.0 [pH] Normal [facility] Specific gravity (U) [Rel density] 1.015 Normal [facility].; [facility] Laboratory - Hematology and Cell countson 04-16-2018 Hemoglobin Ql (U) Negative Normal [facility], [facility].; [facility] Laboratory - Specimen inform ationon 04-16-2018 Appearance (U) CLEAR Normal [facility], [facility].; [facility] Color (U) YELLOW Normal [facility].; [facility] Laboratory - Urinalysison Glucose Test strip (U) [Mass/Vol] Negative Normal [facility].; [facility] Leukocyte esterase Test strip Ql (U) Negative Normal [facility], [facility].; [facility] Nitrite Ql (U) Negative Normal [facility], [facility].; [facility] Protein Ql (U) Negative Normal [facility].; [facility] No Panel Informationon 04-16 UA - ODOR Negative Normal [facility].; [facility] UA - UROBILIGEN 0.2 Normal [facility].; [facility] Laboratory - Chemistry and C hemistry - challengeon 04-13-2018 Albumin [Mass/Vol] 4.1 g/dL Normal 3.4 - 4.8 g/dL [facility].; [facility] Albumin [Mass/Vol] 1.8 g/dL Abnormal 0.9 - 1.6 [facility], [facility].; [facility] ALT [Catalytic activity/Vol] 18 U/L Normal 10 - 40 U/L [facility].; [facility] ALT No additional P-5'-P [Catalytic activity/Vol] 18 U/L Normal 10 - 40 U/L [facility], [facility].; [facility] Anion gap [Moles/Vol] 14 mmol/L Normal 10 - 20 mmol/L [facility]; [facility] AST [Catalytic activity/Vol] 17 U/L Normal 13 - 39 U/L [facility]; [facility] Bilirubin [Mass/Vol] 0.6 mg/dL Normal 0.0 - 1 .5 mg/dL [facility]; [facility] Calcium [Mass/Vol] 9.5 mg/dL Normal 8.6 - 10. 2 mg/dL [facility]; [facility] Chloride [Moles/Vol] 105 mmol/L Normal 98 - 10 7 mmol/L [facility]; [facility] CO2 [Moles/Vol] 24.2 mmol/L Normal 21.0 - 31.0 mmol/L [facility]; [facility] Creatinine [Mass/Vol] 1.7 mg/dL Abnormal 0.7 - 1.3 mg/dL [facility]; [facility], [facility] GFR/1.73 sq M.predicted among blacks MDRD (S/P/Bld) [Vol rate/Area] 47 {ML/MINUTE} Abnormal 60 - 999 {ML/MINUTE} [facility].; [facility]. GFR/1.73 sq M.predicted MDRD (S/P/Bld) [Vol rate/Area] 39 {ML/MINUTE} Abnormal 60 - 999 {ML/MINUTE} [facility].; [facility], [facility]. Globulin (S) [Mass/Vol] 2.3 g/dL Normal 1.5 - 3.8 g/dL [facility]; [facility], [facility] Glucose [Mass/Vol] 104 mg/dL Normal 74 - 106 mg/dL [facility]; [facility], [facility] Potassium [Moles/Vol] 3.8 mmol/L Normal 3.5 - 5.1 mmol/L [facility].; [facility], [facility] Protein [Mass/Vol] 6.4 g/dL Normal 6.4 - 8.3 g/dL [facility]; [facility], [facility] Sodium [Moles/Vol] 139 mmol/L Normal 136 - 145 mmol/L [facility]; [facility], [facility] Urea nitrogen [Mass/Vol] 27 mg/dL Abnormal 6 - 20 mg/dL [facility].; [facility], [facility] Urea nitrogen/Creatinine [Mass ratio] 16 {ratio} Normal 0 - 30 {ratio} [facility]; [facility] No Panel Informationon 04-13 AGE 78 {years} Normal [facility]; [facility], [facility] ALK PHOS 57 U/L Normal 38 - 126 U/L [facility]; [facility], [facility] CMP with eGFR Normal [facility]; [facility], [facility] Laboratory - Chemistry and C hemistry - challengeon 12-16-2017 Anion gap [Moles/Vol] 8 mmol/L Abnormal 10 - 20 mmol/L [facility]; [facility], [facility] Calcium [Mass/Vol] 9.4 mg/dL Normal 8.6 - 10. 2 mg/dL [facility]; [facility], [facility] Chloride [Moles/Vol] 107 mmol/L Normal 98 - 10 7 mmol/L [facility].; [facility], [facility] CO2 [Moles/Vol] 27.5 mmol/L Normal 21.0 - 31.0 mmol/L [facility]; [facility], [facility] Creatinine [Mass/Vol] 1.4 mg/dL Abnormal 0.7 - 1.3 mg/dL [facility].; [facility], [facility] GFR/1.73 sq M.predicted among blacks MDRD (S/P/Bld) [Vol rate/Area] 59 {ML/MINUTE} Abnormal 60 - 999 {ML/MINUTE} [facility].; [facility], [facility]. GFR/1.73 sq M.predicted MDRD (S/P/Bld) [Vol rate/Area] 49 {ML/MINUTE} Abnormal 60 - 999 {ML/MINUTE} [facility], [facility].; [facility], [facility]. Glucose [Mass/Vol] 111 mg/dL Abnormal 74 - 106 mg/dL [facility].; [facility], [facility] Potassium [Moles/Vol] 4.2 mmol/L Normal 3.5 - 5.1 mmol/L [facility].; [facility], [facility] Sodium [Moles/Vol] 138 mmol/L Normal 136 - 145 mmol/L [facility].; [facility], [facility] Urate [Mass/Vol] 7.2 mg/dL Normal 4.4 - 7.6 mg/dL [facility].; [facility], [facility]. Urea nitrogen [Mass/Vol] 25 mg/dL Abnormal 6 - 20 mg/dL [facility].; [facility], [facility]. No Panel Informationon 12-16 AGE 77 {years} Normal [facility].; [facility], [facility]. BMP with eGFR Normal [facility]; [facility], [facility] Laboratory - Chemistry and C hemistry - challengeon 05-09-2016 Albumin [Mass/Vol] 4.1 g/dL Normal 3.4 - 4.8 g/dL [facility].; [facility], [facility]. Work Phone: Albumin [Mass/Vol] 1.6 g/dL Normal 0.9 - 1.6 [facility].; [facility], [facility] Work Phone: ALT [Catalytic activity/Vol] 26 U/L Normal 10 - 40 U/L [facility]; [facility] Work Phone: Anion gap [Moles/Vol] 12 mmol/L Normal 10 - 20 mmol/L [facility]; [facility] Work Phone: AST [Catalytic activity/Vol] 22 U/L Normal 13 - 39 U/L [facility]; [facility] Work Phone: Bilirubin [Mass/Vol] Negative Normal [facility]; [facility] Work Phone: Bilirubin [Mass/Vol] 0.6 mg/dL Normal 0.0 - 1 .5 mg/dL [facility]; [facility] Work Phone: Calcium [Mass/Vol] 9.0 mg/dL Normal 8.6 - 10. 2 mg/dL [facility]; [facility] Work Phone: Chloride [Moles/Vol] 104 mmol/L Normal 98 - 10 7 mmol/L [facility]; [facility] Work Phone: Cholesterol [Mass/Vol] 133 mg/dL Normal 0 - 200 mg/dL [facility]; [facility] Work Phone: Cholesterol in HDL [Mass or moles/Vol] 33 mg/dL Abnormal 40 - 60 mg/dL [facility]; [facility] Work Phone: Cholesterol in LDL [Mass/Vol] 72 mg/dL Normal 0 - 129 mg/dL [facility]; [facility] Work Phone: Cholesterol.total/Ch olesterol in HDL [Mass ratio] 4.0 {ratio} Normal 0.0 - 5.0 [facility]; [facility] Work Phone: CO2 [Moles/Vol] 28.0 mmol/L Normal 21.0 - 31.0 mmol/L [facility]; [facility] Work Phone: Creatinine [Mass/Vol] 1.6 mg/dL Abnormal 0.7 - 1.3 mg/dL [facility]; [facility] Work Phone: GFR/1.73 sq M.predicted among blacks MDRD (S/P/Bld) [Vol rate/Area] 51 {ML/MINUTE} Abnormal 60 - 999 {ML/MINUTE} [facility]; [facility] Work Phone: GFR/1.73 sq M.predicted MDRD (S/P/Bld) [Vol rate/Area] 42 {ML/MINUTE} Abnormal 60 - 999 {ML/MINUTE} [facility].; [facility], [facility]. Work Phone: Globulin (S) [Mass/Vol] 2.5 g/dL Normal 1.5 - 3.8 g/dL [facility]; [facility]. Work Phone: Glucose [Mass/Vol] NORM Normal [facility]; [facility] Work Phone: Glucose [Mass/Vol] 109 mg/dL Abnormal 74 - 106 mg/dL [facility]; [facility] Work Phone: Lipid 1996 panel Normal [facility]; [facility], [facility] Work Phone: pH (Bld) 6 [pH] Normal [facility]; [facility] Work Phone: Potassium [Moles/Vol] 3.9 mmol/L Normal 3.5 - 5.1 mmol/L [facility]; [facility] Work Phone: Protein [Mass/Vol] Negative Normal [facility]; [facility] Work Phone: Protein [Mass/Vol] 6.6 g/dL Normal 6.4 - 8.3 g/dL [facility]; [facility] Work Phone: Sodium [Moles/Vol] 140 mmol/L Normal 136 - 145 mmol/L [facility]; [facility] Work Phone: Triglyceride [Mass/Vol] 142 mg/dL Normal 0 - 150 mg/dL [facility]; [facility] Work Phone: TSH Qn 2.86 m[IU]/L Normal 0.34 - 5.60 {uIU/ml} [facility]; [facility] Work Phone: Urea nitrogen [Mass/Vol] 26 mg/dL Abnormal 6 - 20 mg/dL [facility]; [facility] Work Phone: Urea nitrogen/Creatinine [Mass ratio] 16 {ratio} Normal 0 - 30 {ratio} [facility]; [facility] Work Phone: Laboratory - Hematology and Cell countson 05-09-2016 Basophils (Bld) [#/Vol] 0.10 {x10EE3/UL} Normal 0.00 - 0.10 {x10EE3/UL} [facility]; [facility], [facility] Work Phone: Basophils/100 WBC (Bld) 1.2 % Normal 0.0 - 2.0 % [facility]; [facility] Work Phone: CBC panel Auto (Bld) Normal [facility]; [facility] Work Phone: Eosinophils (Bld) [#/Vol] 0.20 {x10EE3/UL} Normal 0.00 - 0.50 {x10EE3/UL} [facility]; [facility] Work Phone: Eosinophils/100 WBC (Bld) 2.4 % Normal 0.0 - 7.0 % [facility]; [facility] Work Phone: Erythrocyte distribution width (RBC) [Ratio] 13.2 % Normal 12.0 - 15.6 % [facility]; [facility] Work Phone: HbA1c (Bld) [Mass fraction] 5.7 % Normal 4.4 - 6.4 % [facility]; [facility] Work Phone: Hematocrit (Bld) [Volume fraction] 44.5 % Normal 40.0 - 52.0 % [facility]; [facility] Work Phone: Hemoglobin (Bld) [Mass/Vol] 15.7 g/dL Normal 13.0 - 17.5 g/dL [facility]; [facility] Work Phone: Lymphocytes (Bld) [#/Vol] 2.70 {x10EE3/UL} Normal 0.80 - 2.80 {x10EE3/UL} [facility]; [facility] Work Phone: Lymphocytes/100 WBC (Bld) 35.2 % Normal 20.0 - 45.0 % [facility]; [facility] Work Phone: MCH (RBC) [Entitic mass] 33 pg Normal 27 - 33 pg [facility]; [facility]. Work Phone: MCHC (RBC) [Mass/Vol] 35 {X10_3} Normal 32 - 36 {X10_3} [facility]; [facility]. Work Phone: MCV (RBC) [Entitic vol] 93 fL Normal 81 - 98 fL [facility]; [facility] Work Phone: Monocytes (Bld) [#/Vol] 0.70 {x10EE3/UL} Normal 0.20 - 1.00 {x10EE3/UL} [facility]; [facility], [facility]. Work Phone: Monocytes/100 WBC (Bld) 9.0 % Normal 0.0 - 10.0 % [facility]; [facility]. Work Phone: Morphology Ernesto (Bld) [Interp] N/A Normal [facility]; [facility]. Work Phone: Neutrophils (Bld) [#/Vol] 4.00 {x10EE3/UL} Normal 1.50 - 7.10 {x10EE3/UL} [facility].; [facility]. Work Phone: Neutrophils/100 WBC (Bld) 52.2 % Normal 46.0 - 76.0 % [facility]; [facility]. Work Phone: Platelet mean volume (Bld) [Entitic vol] 8.8 fL Normal 6.4 - 10.5 fL [facility] Work Phone: Platelets (Bld) [#/Vol] 194 {x10EE3/UL} Normal 150 - 450 {x10EE3/UL} [facility] Work Phone: RBC (Bld) [#/Vol] 4.79 {x_10EE6/UL} Normal 4.50 - 6.00 {x_10EE6/UL} [facility] Work Phone: WBC (Bld) [#/Vol] Negative Normal [facility] Work Phone: WBC (Bld) [#/Vol] 7.7 {x_10EE3/UL} Normal 4.5 - 10.8 {x_10EE3/UL} [facility].; [facility] Work Phone: Laboratory - Specimen inform ationon 05-09-2016 Clarity (U) clear Normal [facility].; [facility] Work Phone: Color (U) barb Normal [facility].; [facility] Work Phone: Laboratory - Urinalysison Nitrite Ql (U) Negative Normal [facility] Work Phone: No Panel Informationon 05-09 AGE 76 {years} Normal [facility].; [facility] Work Phone: ALK PHOS 49 U/L Normal 38 - 126 U/L [facility].; [facility] Work Phone: Blood Negative Normal [facility]; [facility]. Work Phone: CMP with eGFR Normal [facility]; [facility]. Work Phone: Ketone Negative Normal [facility].; [facility], [facility]. Work Phone: MANUAL DIFF N/A Normal [facility].; [facility]. Work Phone: MICROALBUMIN UR 0.8 mg/dL Normal 0.1 - 25.1 mg/dL [facility]; [facility]. Work Phone: Sp [place] 1.[address] [facility].; [facility]. Work Phone: URINALYSIS WITHOUT MICROSCOPY Normal [facility]; [facility]. Work Phone: Urobilinogen NORM Normal 0.2 - 1.0 [facility]; [facility]. Work Phone: Laboratory - Chemistry and C hemistry - challengeon 04-13-2016 Anion gap [Moles/Vol] 10 mmol/L Normal 10 - 20 mmol/L [facility]; [facility]. Work Phone: Calcium [Mass/Vol] 8.6 mg/dL Normal 8.6 - 10. 2 mg/dL [facility].; [facility], [facility]. Work Phone: Chloride [Moles/Vol] 100 mmol/L Normal 98 - 10 7 mmol/L [facility].; [facility], [facility]. Work Phone: CO2 [Moles/Vol] 28.0 mmol/L Normal 21.0 - 31.0 mmol/L [facility]; [facility], [facility]. Work Phone: Creatinine [Mass/Vol] 1.5 mg/dL Abnormal 0.7 - 1.3 mg/dL [facility]; [facility], [facility]. Work Phone: GFR/1.73 sq M.predicted among blacks MDRD (S/P/Bld) [Vol rate/Area] 55 {ML/MINUTE} Abnormal 60 - 999 {ML/MINUTE} [facility].; [facility], [facility]. Work Phone: GFR/1.73 sq M.predicted MDRD (S/P/Bld) [Vol rate/Area] 45 {ML/MINUTE} Abnormal 60 - 999 {ML/MINUTE} [facility].; [facility], [facility]. Work Phone: Glucose [Mass/Vol] 108 mg/dL Abnormal 74 - 106 mg/dL [facility]; [facility], [facility]. Work Phone: Potassium [Moles/Vol] 4.0 mmol/L Normal 3.5 - 5.1 mmol/L [facility]; [facility], [facility]. Work Phone: Sodium [Moles/Vol] 134 mmol/L Abnormal 136 - 145 mmol/L [facility]; [facility], [facility]. Work Phone: Urea nitrogen [Mass/Vol] 21 mg/dL Abnormal 6 - 20 mg/dL [facility]; [facility], [facility]. Work Phone: No Panel Informationon 04-13 AGE 76 {years} Normal [facility]; [facility], [facility] Work Phone: BMP with eGFR Normal [facility] Work Phone: Laboratory - Chemistry and C hemistry - challengeon 04-05-2016 Creatinine [Mass/Vol] 1.5 mg/dL Abnormal 0.7 - 1.3 mg/dL [facility].; [facility] Work Phone: Vital Signs Date Time Vital Sign Value Performing Clinician Phuong iraheta 03-19-2025 12:04-0400 Body height 177.8 cm Michael Llamas PA-C Work Phone: [phone] [place] [address] 03-19-2025 12:04-0400 Body mass index (BMI) [Ratio] 25.25 kg/m2 Michael Llamas PA-C Work Phone: [phone] [place] [address] 03-19-2025 12:04-0400 Body temperature 97.5 [degF] Michael Llamas PA-C Work Phone: [phone] [place] [address] 03-19-2025 12:04-0400 Body weight 79.83 kg Michael Llamas PA-C Work Phone: [facility] 03-19-2025 12:04-0400 Diastolic blood pressure 71 mm[Hg] Michael Llamas PA-C Work Phone: [facility] 03-19-2025 12:04-0400 Heart rate 53 /min Michael Llamas PA-C Work Phone: [facility] 03-19-2025 12:04-0400 SaO2% (BldA) [Mass fraction] 99 % Michael Llamas PA-C Work Phone: [facility] 03-19-2025 12:04-0400 Systolic blood pressure 105 mm[Hg] Michael Llamas PA-C Work Phone: [facility] 03-15-2025 15:44-0400 Body height 179.07 cm Raina Rahman RN [facility] 03-15-2025 15:44-0400 Body mass index (BMI) [Ratio] 24.9 kg/m2 Raina Rahman RN [facility].; [facility]. 03-15-2025 15:44-0400 Body surface area Derived from formula 1.[address] [facility].; [facility]. 03-15-2025 15:44-0400 Body weight 79.[address] [facility].; [facility]. 03-15-2025 15:44-0400 Diastolic blood pressure 64 mm[Hg] Raina Rahman RN [facility].; [facility]. Comment on above: Patient Position: Sitting; Cuff Location : Left Arm; Cuff Size: Large 03-15-2025 15:44-0400 Heart rate 87 /min Raina Rahman RN [facility].; [facility]. Comment on above: Pattern: Regular 03-15-2025 15:44-0400 Systolic blood pressure 121 mm[Hg] Raina Rahman RN [facility].; [facility] [employer] [facility]. Comment on above: Patient Position: Sitting; Cuff Location : Left Arm; Cuff Size: Large 10-19-2024 10:19-0400 Body mass index (BMI) [Ratio] 28.52 kg/m2 Farrah Nelson PA-C Work Phone: [facility] 10-19-2024 10:19-0400 Body weight 90.17 kg Farrah LEVY-C Work Phone: [facility] 10-19-2024 10:19-0400 Diastolic blood pressure 80 mm[Hg] Farrah LEVY-C Work Phone: [facility] 10-19-2024 10:19-0400 Heart rate 68 /min Farrah LEVY-C Work Phone: [facility] 10-19-2024 10:19-0400 SaO2% (BldA) [Mass fraction] 97 % Farrah Nelson PA-C Work Phone: [facility] 10-19-2024 10:19-0400 Systolic blood pressure 122 mm[Hg] Farrah Leslie GARCIA Work Phone: [facility] 05-24-2024 10:21-0500 Body height 179.07 cm [facility] 05-24-2024 10:21-0500 Body mass index (BMI) [Ratio] 28.15 kg/m2 [facility].; [facility] 05-24-2024 10:21-0500 Body surface area Derived from formula 2.09 m2 [facility].; [facility] 05-24-2024 10:21-0500 Body weight 90.27 kg [facility] 05-24-2024 10:21-0500 Diastolic blood pressure 74 mm[Hg] [facility] Comment on above: Patient Position: Sitting; Cuff Location : Left Arm; Cuff Size: Large 05-24-2024 10:21-0500 Heart rate 62 /min [facility] [employer] [facility] Comment on above: Pattern: Regular 05-24-2024 10:21-0500 Systolic blood pressure 123 mm[Hg] Raina Rahman RN [facility] [employer] [facility] Comment on above: Patient Position: Sitting; Cuff Location : Left Arm; Cuff Size: Large 04-27-2024 14:06-0400 Body mass index (BMI) [Ratio] 28.28 kg/m2 Tristen Raphael MD Work Phone: [facility] 04-27-2024 [id number] Body temperature 97.9 [degF] Tristen Raphael MD Work Phone: [facility] 04-27-2024 14:06-0400 Body weight 89.4 kg Tristen Raphael MD Work Phone: [facility] 04-27-2024 14:06-0400 Diastolic blood pressure 62 mm[Hg] Tristen Raphael MD Work Phone: [facility] 04-27-2024 14:06-0400 Heart rate 59 /min Tristen Raphael MD Work Phone: [facility] 04-27-2024 14:06-0400 Respiratory rate 18 /min Tristen Raphael MD Work Phone: [facility] 04-27-2024 14:06-0400 SaO2% (BldA) [Mass fraction] 98 % Tristen Raphael MD Work Phone: [facility] Comment on above: room air 04-27-2024 14:06-0400 Systolic blood pressure 139 mm[Hg] Tristen Raphael MD Work Phone: [facility] 03-09-2024 10:43-0400 Body mass index (BMI) [Ratio] 28.72 kg/m2 Farrah Sánchezer PA-C Work Phone: [facility] 03-09-2024 10:43-0400 Body weight 90.78 kg Farrah Queener PA-C Work Phone: [facility] 03-09-2024 10:43-0400 Diastolic blood pressure 81 mm[Hg] Farrah Queener PA-C Work Phone: [facility] 03-09-2024 10:43-0400 Heart rate 68 /min Farrah Queener PA-C Work Phone: [facility] 03-09-2024 10:43-0400 Respiratory rate 16 /min Farrah Queener PA-C Work Phone: [facility] 03-09-2024 10:43-0400 SaO2% (BldA) [Mass fraction] 99 % Farrah Sánchezer PA-C Work Phone: [facility] 03-09-2024 10:43-0400 Systolic blood pressure 135 mm[Hg] Farrah Nelson PA-C Work Phone: [facility] 03-08-2024 12:54-0400 Body height 177.8 cm Kane Maria MD Work Phone: [facility] Comment on above: stated 03-08-2024 12:54-0400 Body mass index (BMI) [Ratio] 28.82 kg/m2 Kane Maria MD Work Phone: [facility] 03-08-2024 12:54-0400 Body weight 91.1 kg Kane Maria MD Work Phone: [facility] 02-25-2024 12:32-0400 Body mass index (BMI) [Ratio] 29.07 kg/m2 Tristen Raphael MD Work Phone: [facility] 02-25-2024 12:32-0400 Body temperature 97.7 [degF] Tristen Raphael MD Work Phone: [facility] 02-25-2024 12:32-0400 Body weight 94.5 kg Tristen Raphael MD Work Phone: [facility] 02-25-2024 12:32-0400 Diastolic blood pressure 52 mm[Hg] Tristen Raphael MD Work Phone: [facility] Comment on above: provider informed 02-25-2024 12:32-0400 Heart rate 59 /min Tristen Raphael MD Work Phone: [facility] 02-25-2024 12:32-0400 Respiratory rate 18 /min Tristen Raphael MD Work Phone: [facility] 02-25-2024 12:32-0400 SaO2% (BldA) [Mass fraction] 100 % Tristen Raphael MD Work Phone: [facility] Comment on above: room air 02-25-2024 12:32-0400 Systolic blood pressure 143 mm[Hg] Tristen Raphael MD Work Phone: [facility] Comment on above: provider informed 12-24-2023 15:56-0400 Body temperature 98.7 [degF] [facility] Comment on above: Method: Oral 12-24-2023 15:56-0400 Body weight 93.9 kg Karen [facility] 12-24-2023 15:56-0400 Diastolic blood pressure 70 mm[Hg] [facility] Comment on above: Patient Position: Sitting; Cuff Location : Left Arm; Cuff Size: Large 12-24-2023 15:56-0400 Heart rate 73 /min [facility] Comment on above: Pattern: Regular 12-24-2023 15:56-0400 Systolic blood pressure 117 mm[Hg] Karen [facility]enico [facility] Comment on above: Patient Position: Sitting; Cuff Location : Left Arm; Cuff Size: Large 11-12-2023 12:45-0400 Body mass index (BMI) [Ratio] 28.42 kg/m2 Tristen Raphale MD Work Phone: [facility] 11-12-2023 12:45-0400 Body temperature 97 [degF] Tristen Raphael MD Work Phone: [facility] 11-12-2023 12:45-0400 Body weight 92.4 kg Tristen Raphael MD Work Phone: [facility] 11-12-2023 12:45-0400 Diastolic blood pressure 63 mm[Hg] Tristen Raphael MD Work Phone: [facility] 11-12-2023 12:45-0400 Heart rate 75 /min Tristen Raphael MD Work Phone: [facility] 11-12-2023 12:45-0400 Respiratory rate 19 /min Tristen Raphael MD Work Phone: [facility] 11-12-2023 12:45-0400 SaO2% (BldA) [Mass fraction] 98 % Tristen Raphael MD Work Phone: [facility] 11-12-2023 12:45-0400 Systolic blood pressure 139 mm[Hg] Tristen Raphael MD Work Phone: [facility] 10-07-2023 10:01-0400 Body weight 90.9 kg Farrah Sánchezer PA-C Work Phone: [facility] 10-07-2023 10:01-0400 Diastolic blood pressure 62 mm[Hg] Farrah Sánchezer PA-C Work Phone: [facility] 10-07-2023 10:01-0400 Heart rate 63 /min Farrah Sánchezer PA-C Work Phone: [facility] 10-07-2023 10:01-0400 Respiratory rate 16 /min Farrah Queener PA-C Work Phone: [facility] 10-07-2023 10:01-0400 SaO2% (BldA) [Mass fraction] 98 % Farrah Sánchezer PA-C Work Phone: [facility] 10-07-2023 10:01-0400 Systolic blood pressure 112 mm[Hg] Farrahtoyin Sánchezer PA-C Work Phone: [facility] 07-28-2023 10:53-0500 Body height 179.07 cm Margarita Carrasco RN [facility], [facility].; [facility]. 07-28-2023 10:53-0500 Body mass index (BMI) [Ratio] 29.14 kg/m2 Margarita Carrasco RN [facility], [facility]. 07-28-2023 10:53-0500 Body surface area Derived from formula 2.12 m2 Margarita Carrasco RN [facility], [facility]. 07-28-2023 10:53-0500 Body temperature 98.1 [degF] Margarita [facility]co [facility] Comment on above: Method: Oral 07-28-2023 10:53-0500 Body weight 93.44 kg Margarita [facility] 07-28-2023 10:53-0500 Diastolic blood pressure 85 mm[Hg] Margarita [facility] Comment on above: Patient Position: Sitting; Cuff Location : Left Arm; Cuff Size: Standard 07-28-2023 10:53-0500 Heart rate 74 /min Margarita [facility], [employer]. Comment on above: Pattern: Regular 07-28-2023 10:53-0500 Inhaled oxygen concentration 21 % Margarita [facility] Comment on above: Room air 07-28-2023 10:53-0500 SaO2% (BldA) [Mass fraction] 96 % Margarita [facility]co [facility] 07-28-2023 10:53-0500 Systolic blood pressure 132 mm[Hg] Margarita [facility] Comment on above: Patient Position: Sitting; Cuff Location : Left Arm; Cuff Size: Standard 05-21-2023 09:30-0400 Body weight 93.35 kg Farrah Nelson PA-C Work Phone: [facility] 05-21-2023 09:30-0400 Diastolic blood pressure 75 mm[Hg] Farrah Nelson PA-C Work Phone: [facility] 05-21-2023 09:30-0400 Heart rate 60 /min Farrah Nelson PA-C Work Phone: [facility] 05-21-2023 09:30-0400 Respiratory rate 18 /min Farrah Nelson PA-C Work Phone: [facility] 05-21-2023 09:30-0400 SaO2% (BldA) [Mass fraction] 98 % Farrah Nelson PA-C Work Phone: [facility] 05-21-2023 09:30-0400 Systolic blood pressure 116 mm[Hg] Farrah Nelson PA-C Work Phone: [facility] 05-07-2023 13:02-0400 Body temperature 97.5 [degF] Tristen Raphael MD Work Phone: [facility] 05-07-2023 13:02-0400 Body weight 91.54 kg Tristen Raphael MD Work Phone: [facility] 05-07-2023 13:02-0400 Diastolic blood pressure 71 mm[Hg] Tristen Raphael MD Work Phone: [facility] 05-07-2023 13:02-0400 Heart rate 71 /min Tristen Raphael MD Work Phone: [facility] 05-07-2023 13:02-0400 Respiratory rate 18 /min Tristen Raphael MD Work Phone: [facility] 05-07-2023 13:02-0400 Systolic blood pressure 151 mm[Hg] Tristen Raphael MD Work Phone: [facility] 02-06-2023 11:22-0400 Body weight 91.72 kg Kelin Dahlhausen [employer] LIBRARIAN.[employer] Work Phone: [facility] 02-06-2023 11:22-0400 Diastolic blood pressure 68 mm[Hg] Kelin Dahlhausen [employer] COLLECTIONS LIBRARIAN.[employer] LAY[employer] HELPER Work Phone: [facility] 02-06-2023 11:22-0400 Heart rate 64 /min Kelin Dahlhausen SPECIAL COLLECTIONS LIBRARIAN.[employer]AY[employer] HELPER Work Phone: [facility] 02-06-2023 11:22-0400 Respiratory rate 16 /min Kelin Dahlhausen SPECIAL COLLECTIONS LIBRARIAN.[employer] LAY[employer] HELPER Work Phone: [facility] 02-06-2023 11:22-0400 SaO2% (BldA) [Mass fraction] 100 % Kelin Madden [employer] COLLECTIONS LIBRARIAN.[employer] LAY[employer] HELPER Work Phone: [facility] 02-06-2023 11:22-0400 Systolic blood pressure 118 mm[Hg] Kelin Madden [employer] COLLECTIONS LIBRARIAN.[employer] L[employer] HELPER Work Phone: [facility] 01-29-2023 13:36-0400 Body height 180.3 cm Tristen Raphael MD Work Phone: [facility] 01-29-2023 13:36-0400 Body temperature 97.81 [degF] Tristen Raphael MD Work Phone: [facility] 01-29-2023 13:36-0400 Body weight 91.31 kg Tristen Raphael MD Work Phone: [facility] 01-29-2023 13:36-0400 Diastolic blood pressure 50 mm[Hg] Tristen Raphael MD Work Phone: [facility] 01-29-2023 13:36-0400 Heart rate 57 /min Tristen Raphael MD Work Phone: [facility] 01-29-2023 13:36-0400 Respiratory rate 22 /min Tristen Raphael MD Work Phone: [facility] 01-29-2023 13:36-0400 SaO2% (BldA) [Mass fraction] 98 % Tristen Raphael MD Work Phone: [facility] 01-29-2023 13:36-0400 Systolic blood pressure 145 mm[Hg] Tristen Raphael MD Work Phone: [facility] 10-30-2022 13:17-0400 Body temperature 99.19 [degF] Tristen Raphael MD Work Phone: [facility] 10-30-2022 13:17-0400 Body weight 94.21 kg Tristen Raphael MD Work Phone: [facility] 10-30-2022 13:17-0400 Diastolic blood pressure 60 mm[Hg] Tristen Raphael MD Work Phone: [facility] 10-30-2022 13:17-0400 Heart rate 72 /min Tristen Raphael MD Work Phone: [facility] 10-30-2022 13:17-0400 Respiratory rate 16 /min Tristen Raphael MD Work Phone: [facility] 10-30-2022 13:17-0400 SaO2% (BldA) [Mass fraction] 100 % Tristen Raphael MD Work Phone: [facility] 10-30-2022 13:17-0400 Systolic blood pressure 127 mm[Hg] Tristen Raphael MD Work Phone: [facility] 10-10-2022 11:25-0400 Body temperature 98.4 [degF] Kelin Dahlhausen [employer] COLLECTIONS LIBRARIAN.[employer] HELPER Work Phone: [facility] 10-10-2022 11:25-0400 Body weight 94.98 kg Kelin Dahlhausen [employer] COLLECTIONS LIBRARIAN.[employer]AY[employer] HELPER Work Phone: [facility] 10-10-2022 11:25-0400 Diastolic blood pressure 55 mm[Hg] Kelin Dahlhausen [employer] COLLECTIONS LIBRARIAN.[employer] LAY[employer] HELPER Work Phone: [facility] 10-10-2022 11:25-0400 Heart rate 54 /min Kelin Dahlhausen SPECIAL COLLECTIONS LIBRARIAN.[employer] HELPER Work Phone: [facility] 10-10-2022 11:25-0400 Respiratory rate 16 /min Kelin Dahlhausen [employer] COLLECTIONS LIBRARIAN.[employer] HELPER Work Phone: [facility] 10-10-2022 11:25-0400 SaO2% (BldA) [Mass fraction] 97 % Kelin Dahlhausen [employer] COLLECTIONS LIBRARIAN.[employer] HELPER Work Phone: [facility] 10-10-2022 11:25-0400 Systolic blood pressure 139 mm[Hg] Kelin Dahlhausen [employer] COLLECTIONS LIBRARIAN.[employer] HELPER Work Phone: [facility] 07-31-2022 13:48-0500 Body temperature 97.11 [degF] Tristen Raphael MD Work Phone: [facility] 07-31-2022 13:48-0500 Body weight 94.67 kg Tristen Raphael MD Work Phone: [facility] 07-31-2022 13:48-0500 Diastolic blood pressure 53 mm[Hg] Tristen Raphael MD Work Phone: [facility] 07-31-2022 13:48-0500 Heart rate 70 /min Tristen Raphael MD Work Phone: [facility] 07-31-2022 13:48-0500 Respiratory rate 18 /min Tristen Raphael MD Work Phone: [facility] 07-31-2022 13:48-0500 SaO2% (BldA) [Mass fraction] 99 % Tristen Raphael MD Work Phone: [facility] 07-31-2022 13:48-0500 Systolic blood pressure 142 mm[Hg] Tristen Raphael MD Work Phone: [facility] 04-24-2022 09:31-0400 Body temperature 98.01 [degF] Tristen Raphael MD Work Phone: [facility] 04-24-2022 09:31-0400 Body weight 92.7 kg Tristen Raphael MD Work Phone: [facility] 04-24-2022 09:31-0400 Diastolic blood pressure 67 mm[Hg] Tristen Raphael MD Work Phone: [facility] 04-24-2022 09:31-0400 Heart rate 78 /min Tristen Raphael MD Work Phone: [facility] 04-24-2022 09:31-0400 Respiratory rate 18 /min Tristen Raphael MD Work Phone: [facility] 04-24-2022 09:31-0400 Systolic blood pressure 130 mm[Hg] Tristen Raphael MD Work Phone: [facility] 04-18-2022 13:08-0400 Body temperature 97.59 [degF] Kelinbronson Ornelashauslouisa SPECIAL COLLECTIONS LIBRARIAN.[employer] LAY[employer] HELPER Work Phone: [facility] 04-18-2022 13:08-0400 Body weight 92.99 kg Kelinbronson Ornelashausen SPECIAL COLLECTIONS LIBRARIAN.[employer] HELPER Work Phone: [facility] 04-18-2022 13:08-0400 Diastolic blood pressure 60 mm[Hg] Kelin Husseinhlhausen [employer] COLLECTIONS LIBRARIAN.[employer] L[employer] HELPER Work Phone: [facility] 04-18-2022 13:08-0400 Heart rate 71 /min Kelinbronson Ornelashausen SPECIAL COLLECTIONS LIBRARIAN.[employer] LAYER HELPER Work Phone: [facility] 04-18-2022 13:08-0400 Respiratory rate 18 /min Kelinbronson Ornelashausen SPECIAL COLLECTIONS LIBRARIAN.[employer] LAY[employer] HELPER Work Phone: [facility] 04-18-2022 13:08-0400 SaO2% (BldA) [Mass fraction] 99 % Kelin Madden SPECIAL COLLECTIONS LIBRARIAN.[employer] HELPER Work Phone: [facility] 04-18-2022 13:08-0400 Systolic blood pressure 112 mm[Hg] Kelin Ornelashausen SPECIAL COLLECTIONS LIBRARIAN.[employer] HELPER Work Phone: [facility] 03-22-2022 10:46-0400 Body height 179.07 cm Raina Rahman RN [facility], [facility].; [facility] 03-22-2022 10:46-0400 Body mass index (BMI) [Ratio] 28.29 kg/m2 Raina Rahman RN [facility].; [facility] 03-22-2022 10:46-0400 Body surface area Derived from formula 2.1 m2 Raina Rahman RN [facility].; [facility] 03-22-2022 10:46-0400 Body temperature 98 [degF] [facility], [employer]. Comment on above: Method: Oral 03-22-2022 10:46-0400 Body weight 90.72 kg Raina Rahman RN [facility], [employer] [facility] 03-22-2022 10:46-0400 Diastolic blood pressure 67 mm[Hg] Raina Rahman RN [facility], [employer] [facility] Comment on above: Patient Position: Sitting; Cuff Location : Left Arm; Cuff Size: Large 03-22-2022 10:46-0400 Heart rate 77 /min Raina [facility], [employer]. Comment on above: Pattern: Regular 03-22-2022 10:46-0400 Inhaled oxygen concentration 21 % Raina Rahman RN [facility], [employer] [facility], [employer]. Comment on above: Room air 03-22-2022 10:46-0400 SaO2% (BldA) [Mass fraction] 98 % Raina Rahman RN [facility], [employer] [facility] 03-22-2022 10:46-0400 Systolic blood pressure 134 mm[Hg] Raina Rahman RN [facility], [employer] [facility], [employer]. Comment on above: Patient Position: Sitting; Cuff Location : Left Arm; Cuff Size: Large 03-14-2022 11:08-0400 Body temperature 99.3 [degF] Karen Ascencio RN [facility] [employer] [facility], [employer]. Comment on above: Method: Oral 03-14-2022 11:08-0400 Diastolic blood pressure 73 mm[Hg] Karen Ascencio RN [facility], [employer] [facility], [employer]. Comment on above: Patient Position: Sitting; Cuff Location : Left Arm; Cuff Size: Large 03-14-2022 11:08-0400 Heart rate 79 /min Karen Ascencio RN [facility] Comment on above: Pattern: Regular 03-14-2022 11:08-0400 Inhaled oxygen concentration 21 % [facility].; [facility], [facility]. Comment on above: Room air 03-14-2022 11:08-0400 SaO2% (BldA) [Mass fraction] 97 % Karen [facility].; [facility], [facility]. 03-14-2022 11:08-0400 Systolic blood pressure 133 mm[Hg] Karen [facility].; [facility]. Comment on above: Patient Position: Sitting; Cuff Location : Left Arm; Cuff Size: Large 02-06-2022 14:22-0400 Body temperature 98.29 [degF] Tristen Raphael MD Work Phone: [facility] 02-06-2022 14:22-0400 Body weight 90.1 kg Tristen Raphael MD Work Phone: [facility] 02-06-2022 14:22-0400 Diastolic blood pressure 60 mm[Hg] Tristen Raphael MD Work Phone: [facility] 02-06-2022 14:22-0400 Heart rate 83 /min Tristen Raphael MD Work Phone: [facility] 02-06-2022 14:22-0400 Respiratory rate 18 /min Tristen Raphael MD Work Phone: [facility] 02-06-2022 14:22-0400 Systolic blood pressure 126 mm[Hg] Tristen Raphael MD Work Phone: [facility] 01-31-2022 13:02-0400 Body height 179.07 cm Karen Ascencio RN [facility], [employer] [facility], [facility]. 01-31-2022 13:02-0400 Body mass index (BMI) [Ratio] 28.29 kg/m2 Karen [facility].; [facility] 01-31-2022 13:02-0400 Body surface area Derived from formula 2.1 m2 Karen [facility]io [facility], [facility]. 01-31-2022 13:02-0400 Body temperature 98.4 [degF] Karen [facility] [employer] [facility], [employer]. Comment on above: Method: Oral 01-31-2022 13:02-0400 Body weight 90.72 kg Karen [facility] [employer] [facility] 01-31-2022 13:02-0400 Diastolic blood pressure 72 mm[Hg] Karen Ascencio RN [facility] [employer] [facility], [employer]. Comment on above: Patient Position: Sitting; Cuff Location : Left Arm; Cuff Size: Large 01-31-2022 13:02-0400 Heart rate 70 /min Karen Ascencio RN [facility], [employer]. Comment on above: Pattern: Regular 01-31-2022 13:02-0400 Inhaled oxygen concentration 21 % Karen Ascencio RN [facility], [employer]. Comment on above: Room air 01-31-2022 13:02-0400 SaO2% (BldA) [Mass fraction] 98 % Karen [facility] 01-31-2022 13:02-0400 Systolic blood pressure 115 mm[Hg] Karen Ascencio RN [facility] [employer] [facility], [employer]. Comment on above: Patient Position: Sitting; Cuff Location : Left Arm; Cuff Size: Large 01-10-2022 11:27-0400 Body temperature 97.39 [degF] Kelin Madden APRN.[employer] LAY[employer] HELPER Work Phone: [facility] 01-10-2022 11:27-0400 Body weight 89.63 kg Kelin Madden APRN.CNP Work Phone: [facility] 01-10-2022 11:27-0400 Diastolic blood pressure 74 mm[Hg] Kelin Ornelashausen [employer] COLLECTIONS LIBRARIAN.[employer] LAYER HELPER Work Phone: [facility] 01-10-2022 11:27-0400 Heart rate 70 /min Kelin Contrerasen SPECIAL COLLECTIONS LIBRARIAN.[employer] LAYER HELPER Work Phone: [facility] 01-10-2022 11:27-0400 Respiratory rate 18 /min Kelinbronson Ornelashausen SPECIAL COLLECTIONS LIBRARIAN.[employer] LAYER HELPER Work Phone: [facility] 01-10-2022 11:27-0400 SaO2% (BldA) [Mass fraction] 98 % Kelinlouisa Contrerasen SPECIAL COLLECTIONS LIBRARIAN.[employer] LAYER HELPER Work Phone: [facility] 01-10-2022 11:27-0400 Systolic blood pressure 118 mm[Hg] Kelin Ornelashausen SPECIAL COLLECTIONS LIBRARIAN.[employer]CT LAYER HELPER Work Phone: [facility] 11-23-2021 16:00-0400 Body height 179.07 cm Margarita Carrasco RN [facility], [facility].; [facility], [facility]. 11-23-2021 16:00-0400 Body mass index (BMI) [Ratio] 28.43 kg/m2 Margarita Carrasco RN [facility], [facility], [facility]. 11-23-2021 16:00-0400 Body surface area Derived from formula 2.1 m2 Margarita Carrasco RN [facility], [facility], [facility]. 11-23-2021 16:00-0400 Body temperature 97.6 [degF] Margarita Carrasco RN [facility], [facility].; [facility], [employer]. Comment on above: Method: Oral 11-23-2021 16:00-0400 Body weight 91.17 kg Margarita Carrasco RN [facility] 11-23-2021 16:00-0400 Diastolic blood pressure 76 mm[Hg] Margarita Carrasco RN [facility] [place] - [facility]. Comment on above: Patient Position: Sitting; Cuff Location : Left Arm; Cuff Size: Standard 11-23-2021 16:00-0400 Heart rate 62 /min Margarita Carrasco RN [facility].; [facility]. Comment on above: Pattern: Regular 11-23-2021 16:00-0400 Systolic blood pressure 143 mm[Hg] Margarita Carrasco RN [facility].; [facility]. Comment on above: Patient Position: Sitting; Cuff Location : Left Arm; Cuff Size: Standard 11-21-2021 14:47-0400 Body temperature 97.5 [degF] Treatment Wstr Work Phone: [facility] 11-21-2021 14:47-0400 Body weight 90.72 kg Treatment Wstr Work Phone: [facility] 11-21-2021 14:47-0400 Diastolic blood pressure 68 mm[Hg] Treatment Wstr Work Phone: [facility] 11-21-2021 14:47-0400 Heart rate 71 /min Treatment Wstr Work Phone: [facility] 11-21-2021 14:47-0400 Systolic blood pressure 148 mm[Hg] Treatment Wstr Work Phone: [facility] 11-07-2021 14:00-0400 Body temperature 97.2 [degF] Treatment Wstr Work Phone: [facility] 11-07-2021 14:00-0400 Diastolic blood pressure 59 mm[Hg] Treatment Wstr Work Phone: [facility] 11-07-2021 14:00-0400 Heart rate 64 /min Treatment Wstr Work Phone: [facility] 11-07-2021 14:00-0400 Systolic blood pressure 153 mm[Hg] Treatment Wstr Work Phone: [facility] 10-25-2021 14:51-0400 Body temperature 97 [degF] Treatment Wstr Work Phone: [facility] 10-25-2021 14:51-0400 Diastolic blood pressure 82 mm[Hg] Treatment Wstr Work Phone: [facility] 10-25-2021 14:51-0400 Heart rate 76 /min Treatment Wstr Work Phone: [facility] 10-25-2021 14:51-0400 Respiratory rate 18 /min Treatment Wstr Work Phone: [facility] 10-25-2021 14:51-0400 SaO2% (BldA) [Mass fraction] 98 % Treatment Wstr Work Phone: [facility] 10-25-2021 14:51-0400 Systolic blood pressure 158 mm[Hg] Treatment Wstr Work Phone: [facility] 05-28-2021 09:33-0500 Body height 179.07 cm Raina Rahman RN [facility], [employer] [facility], [facility]. 05-28-2021 09:33-0500 Body mass index (BMI) [Ratio] 25.6 kg/m2 [facility].; [facility], [facility]. 05-28-2021 09:33-0500 Body surface area Derived from formula 2.01 m2 Raina Rahman RN [facility], [facility].; [facility], [facility]. 05-28-2021 09:33-0500 Body temperature 98 [degF] Raina Rahman RN [facility], [employer]. Comment on above: Method: Oral 05-28-2021 09:33-0500 Body weight 82.1 kg Raina Rahman RN [facility] [employer] [facility], [employer]. 05-28-2021 09:33-0500 Diastolic blood pressure 78 mm[Hg] Raina Rahman RN [facility], [employer] [facility], [employer]. Comment on above: Patient Position: Sitting; Cuff Location : Left Arm; Cuff Size: Large 05-28-2021 09:33-0500 Heart rate 77 /min Raina Rahman RN [facility], [employer]. Comment on above: Pattern: Regular 05-28-2021 09:33-0500 Inhaled oxygen concentration 21 % Raina Rahman RN [facility] Comment on above: Room air 05-28-2021 09:33-0500 SaO2% (BldA) [Mass fraction] 98 % Raina Rahman RN [facility] 05-28-2021 09:33-0500 Systolic blood pressure 135 mm[Hg] Raina Rahman RN [facility], [facility].; [facility] Comment on above: Patient Position: Sitting; Cuff Location : Left Arm; Cuff Size: Large 04-19-2021 14:23-0400 Body height 179.07 cm Raina Rahman RN [facility] 04-19-2021 14:23-0400 Body mass index (BMI) [Ratio] 25.46 kg/m2 Raina Ramhan RN [facility], [facility].; [facility] 04-19-2021 14:23-0400 Body surface area Derived from formula 2.01 m2 Raina Rahman RN [facility], [facility].; [facility] 04-19-2021 14:23-0400 Body temperature 97.7 [degF] Raina Rahman RN [facility], [facility].; [facility] Comment on above: Method: Oral 04-19-2021 14:23-0400 Body weight 81.65 kg Raina Rahman RN [facility], [facility].; [facility] 04-19-2021 14:23-0400 Diastolic blood pressure 82 mm[Hg] Raina Rahman RN [facility] Comment on above: Patient Position: Sitting; Cuff Location : Left Arm; Cuff Size: Large 04-19-2021 14:23-0400 Heart rate 67 /min Raina Rahman RN [facility], [employer] [facility], [employer]. Comment on above: Pattern: Regular 04-19-2021 14:23-0400 Systolic blood pressure 152 mm[Hg] Raina Rahman RN [facility] [employer] [facility] Comment on above: Patient Position: Sitting; Cuff Location : Left Arm; Cuff Size: Large 12-08-2020 10:07-0400 Body height 179.07 cm Margarita Carrasco RN [facility] [employer] [facility] 12-08-2020 10:07-0400 Body mass index (BMI) [Ratio] 23.36 kg/m2 Margarita Carrasco RN [facility] [employer] [facility] 12-08-2020 10:07-0400 Body surface area Derived from formula 1.93 m2 Margarita Carrasco RN [facility], [employer] [facility] 12-08-2020 10:07-0400 Body weight 74.9 kg Margarita Carrasco RN [facility], [employer] [facility] 12-08-2020 10:07-0400 Diastolic blood pressure 64 mm[Hg] Margarita Carrasco RN [facility] [employer] [facility], [employer]. Comment on above: Patient Position: Sitting; Cuff Location : Left Arm; Cuff Size: Standard 12-08-2020 10:07-0400 Heart rate 76 /min Margarita Carrasco RN [facility] [employer] [facility], [employer]. Comment on above: Pattern: Regular 12-08-2020 10:07-0400 Inhaled oxygen concentration 21 % Margarita Carrasco RN [facility] [employer] [facility] Comment on above: Room air 12-08-2020 10:07-0400 SaO2% (BldA) [Mass fraction] 98 % Margarita Carrasco RN [facility]. 12-08-2020 10:07-0400 Systolic blood pressure 106 mm[Hg] Margarita Carrasco RN [facility].; [facility]. Comment on above: Patient Position: Sitting; Cuff Location : Left Arm; Cuff Size: Standard 11-14-2020 10:09-0400 Body height 179.07 cm Jeannine DENNEY MD Work Phone: [facility].; [employer] [facility]. 11-14-2020 10:09-0400 Body mass index (BMI) [Ratio] 23.48 kg/m2 Jeannine DENNEY MD Work Phone: [facility] [place]; [employer] [facility]. 11-14-2020 10:09-0400 Body surface area Derived from formula 1.94 m2 Jeannine DENNEY MD Work Phone: [facility] [employer]. 11-14-2020 10:09-0400 Body weight 75.3 kg Jeannine DENNEY MD Work Phone: [facility] [place]; [employer] [facility]. 11-14-2020 10:09-0400 Diastolic blood pressure 76 mm[Hg] Jeannine DENNEY MD Work Phone: [facility] [place]; [employer]. Comment on above: Patient Position: Sitting; Cuff Location : Left Arm; Cuff Size: Large 11-14-2020 10:09-0400 Heart rate 82 /min Jeannine DENNEY MD Work Phone: [facility] [place]; [employer] [facility]. Comment on above: Pattern: Regular 11-14-2020 10:09-0400 Systolic blood pressure 121 mm[Hg] Jeannine DENNEY MD Work Phone: [facility] [employer] [facility] [place]; [employer]. Comment on above: Patient Position: Sitting; Cuff Location : Left Arm; Cuff Size: Large 03-31-2020 14:22-0400 Body temperature 98.5 [degF] Raina Rahman RN [facility], [employer] [facility], [employer]. Comment on above: Method: Oral 03-31-2020 14:22-0400 Diastolic blood pressure 71 mm[Hg] Raina Rahman RN [facility], [employer] [facility] [employer] [facility] Comment on above: Patient Position: Sitting; Cuff Location : Left Arm; Cuff Size: Large 03-31-2020 14:220400 Heart rate 76 /min Raina Rahman RN [facility], [employer] [facility], [employer]. Comment on above: Pattern: Regular 03-31-2020 14:22-0400 Inhaled oxygen concentration 21 % Raina Rahman RN [facility], [employer] [facility] Comment on above: Room air 03-31-2020 14:22-0400 SaO2% (BldA) [Mass fraction] 97 % Raina Rahman RN [facility], [employer] [facility] 03-31-2020 14:22-0400 Systolic blood pressure 146 mm[Hg] Raina Rahman RN [facility], [employer] [facility] [employer] Comment on above: Patient Position: Sitting; Cuff Location : Left Arm; Cuff Size: Large 02-11-2019 10:180400 Body height 179.07 cm Karen Ascencio RN [facility] [employer] [facility] 02-11-2019 10:180400 Body mass index (BMI) [Ratio] 28.91 kg/m2 Karen Ascencio RN [facility] [employer] [facility] 02-11-2019 10:18-0400 Body surface area Derived from formula 2.12 m2 Karen Ascencio RN [facility].; [employer] [facility], [employer] 02-11-2019 10:18-0400 Body temperature 97.9 [degF] Karen Ascencio RN [facility] [employer] [facility] Comment on above: Method: Oral 02-11-2019 10:180400 Body weight 92.72 kg Karen Ascencio RN [facility] [employer] [facility] [employer] 02-11-2019 10:18-0400 Diastolic blood pressure 79 mm[Hg] Karen Ascencio RN [facility] [employer] [facility] [employer] Comment on above: Patient Position: Sitting; Cuff Location : Left Arm; Cuff Size: Large 02-11-2019 10:18-0400 Heart rate 77 /min Karen Ascencio RN [facility] [employer] [facility] [employer] Comment on above: Pattern: Regular 02-11-2019 10:18-0400 Systolic blood pressure 116 mm[Hg] Karen Ascencio RN [facility] [employer] [facility] [employer] Comment on above: Patient Position: Sitting; Cuff Location : Left Arm; Cuff Size: Large 04-13-2018 10:220400 Body height 179.07 cm Margarita Carrasco RN [facility] [employer] [facility] [employer] [facility] [employer] 04-13-2018 10:22-0400 Body mass index (BMI) [Ratio] 27.73 kg/m2 Margarita Carrasco RN [facility], [facility] [employer] 04-13-2018 10:22-0400 Body surface area Derived from formula 2.08 m2 Margarita Carrasco RN [facility] [employer] 04-13-2018 10:22-0400 Body temperature 97.9 [degF] Margarita Carrasco RN [facility] [employer] Comment on above: Method: Oral 04-13-2018 10:220400 Body weight 88.91 kg Margarita Carrasco RN [facility] [employer] 04-13-2018 10:22-0400 Diastolic blood pressure 73 mm[Hg] Margarita Carrasco RN [facility] [employer] [facility] [employer] Comment on above: Patient Position: Sitting; Cuff Location : Left Arm; Cuff Size: Standard 04-13-2018 10:22-0400 Heart rate 88 /min Margarita Carrasco RN [facility] [employer] [employer] Comment on above: Pattern: Regular 04-13-2018 10:22-0400 Systolic blood pressure 116 mm[Hg] Margarita Carrasco RN [facility] [employer] [facility] Comment on above: Patient Position: Sitting; Cuff Location : Left Arm; Cuff Size: Standard 12-16-2017 15:08-0400 Body height 179.07 cm Raina Rahman RN [facility] [employer] [facility] 12-16-2017 15:08-0400 Body mass index (BMI) [Ratio] 28.01 kg/m2 Raina Rahman RN [facility] [employer] [facility] 12-16-2017 15:08-0400 Body surface area Derived from formula 2.09 m2 Raina Rahman RN [facility] [employer] [facility], [facility] 12-16-2017 15:08-0400 Body weight 89.81 kg Raina Rahman RN [facility] [employer] [facility] 12-16-2017 15:08-0400 Diastolic blood pressure 84 mm[Hg] Raina Rahman RN [facility] [employer] [facility] [employer] Comment on above: Patient Position: Sitting; Cuff Location : Left Arm; Cuff Size: Large 12-16-2017 15:08-0400 Heart rate 76 /min Raina Rahman RN [facility] [employer] Comment on above: Pattern: Regular 12-16-2017 15:08-0400 Systolic blood pressure 125 mm[Hg] Raina Rahman RN [facility] [employer] [facility] Comment on above: Patient Position: Sitting; Cuff Location : Left Arm; Cuff Size: Large 12-19-2016 15:34-0400 Body height 180.34 cm Karen Ascencio RN [facility], [employer] 12-19-2016 15:34-0400 Body mass index (BMI) [Ratio] 28.73 kg/m2 Karen Ascencio RN [facility] [employer] 12-19-2016 15:34-0400 Body surface area Derived from formula 2.14 m2 Karen Ascencio RN [facility], [employer] 12-19-2016 15:34-0400 Body temperature 97.7 [degF] Karen [facility] [employer] [facility]. Comment on above: Method: Oral 12-19-2016 15:34-0400 Body weight 93.44 kg Karen Ascencio RN [facility], [employer] [facility] 12-19-2016 15:34-0400 Diastolic blood pressure 70 mm[Hg] Karen Ascencio RN [facility] [employer] [facility]. Comment on above: Patient Position: Sitting; Cuff Location : Left Arm; Cuff Size: Large 12-19-2016 15:34-0400 Heart rate 79 /min Karen Ascencio RN [facility], [employer] [facility]. Comment on above: Pattern: Regular 12-19-2016 15:34-0400 Systolic blood pressure 106 mm[Hg] Karen Ascencio RN [facility] [employer] [facility], [employer] Comment on above: Patient Position: Sitting; Cuff Location : Left Arm; Cuff Size: Large 04-12-2016 14:18-0400 Body height 180.34 cm NE CASANOVA MD Work Phone: [facility]. 04-12-2016 14:18-0400 Body mass index (BMI) [Ratio] 30.13 kg/m2 NE CASANOVA MD Work Phone: [facility].; [employer] [facility]. 04-12-2016 14:18-0400 Body surface area Derived from formula 2.18 m2 NE CASANOVA MD Work Phone: [facility].; [employer] [facility]. 04-12-2016 14:18-0400 Body weight 97.98 kg NE CASANOVA MD Work Phone: [facility] [employer] [facility] [employer] [facility]. 04-12-2016 14:18-0400 Diastolic blood pressure 81 mm[Hg] NE CASANOVA MD Work Phone: [facility] [employer] [facility] [employer] [facility] [employer] [facility]. Comment on above: Patient Position: Sitting; Cuff Location : Left Arm; Cuff Size: Standard 04-12-2016 14:18-0400 Heart rate 76 /min NE CASANOVA MD Work Phone: [facility] [employer] [facility]. Comment on above: Pattern: Regular 04-12-2016 14:18-0400 Systolic blood pressure 132 mm[Hg] NE CASANOVA MD Work Phone: [facility].; [employer] [facility]. Comment on above: Patient Position: Sitting; Cuff Location : Left Arm; Cuff Size: Standard 04-25-2015 15:33-0400 Body height 180.34 cm Raina Rahman RN [facility]. 04-25-2015 15:33-0400 Body mass index (BMI) [Ratio] 29.57 kg/m2 Raina Rahman RN [facility] 04-25-2015 15:33-0400 Body surface area Derived from formula 2.16 m2 Raina Rahman RN [facility] 04-25-2015 15:33-0400 Body temperature 97.9 [degF] Raina Rahman RN [facility], [employer]. Comment on above: Method: Oral 04-25-2015 15:33-0400 Body weight 96.16 kg Raina Rahman RN [facility] 04-25-2015 15:33-0400 Diastolic blood pressure 81 mm[Hg] Raina Rahman RN [facility] [employer] [facility] Comment on above: Patient Position: Sitting; Cuff Location : Left Arm; Cuff Size: Large 04-25-2015 15:33-0400 Heart rate 91 /min Raina Rahman RN [facility] [employer] [facility], [employer] Comment on above: Pattern: Regular 04-25-2015 15:33-0400 Systolic blood pressure 133 mm[Hg] Raina Rahman RN [facility] [employer] [facility] Comment on above: Patient Position: Sitting; Cuff Location : Left Arm; Cuff Size: Large 09-27-2014 09:45-0400 Body height 180.34 cm Raina Rahman RN [facility] 09-27-2014 09:45-0400 Body mass index (BMI) [Ratio] 30.13 kg/m2 Raina Rahman RN [facility] 09-27-2014 09:45-0400 Body surface area Derived from formula 2.18 m2 Raina Rahman RN [facility] 09-27-2014 09:45-0400 Body temperature 97.7 [degF] Raina Rahman RN [facility] [employer] [facility], [employer]. Comment on above: Method: Oral 09-27-2014 09:45-0400 Body weight 97.98 kg Raina Rahman RN [facility], [employer] [facility] 09-27-2014 09:45-0400 Diastolic blood pressure 78 mm[Hg] Raina Rahman RN [facility], [employer] [facility], [employer]. Comment on above: Patient Position: Sitting; Cuff Location : Left Arm; Cuff Size: Large 09-27-2014 09:45-0400 Heart rate 109 /min Raina Rahman RN [facility], [employer] [facility]. Comment on above: Pattern: Regular 09-27-2014 09:45-0400 Inhaled oxygen concentration 21 % Raina Rahman RN [facility], [employer] [facility], [employer]. Comment on above: Room air 09-27-2014 09:45-0400 SaO2% (BldA) [Mass fraction] 95 % Raina Rahman RN [facility], [employer] [facility] [employer] 09-27-2014 09:45-0400 Systolic blood pressure 125 mm[Hg] Raina Rahman RN [facility], [employer] [facility], [employer] Comment on above: Patient Position: Sitting; Cuff Location : Left Arm; Cuff Size: Large 03-16-2012 10:47-0400 Body height 180.34 cm Margarita Carrasco RN [facility] [employer] [facility], [employer] 03-16-2012 10:47-0400 Body mass index (BMI) [Ratio] 28.45 kg/m2 Margarita Carrasco RN [facility], [facility].; [employer] [facility] 03-16-2012 10:47-0400 Body surface area Derived from formula 2.13 m2 Margarita Carrasco RN [facility], [employer] [employer] [facility] 03-16-2012 10:47-0400 Body temperature 98.4 [degF] Margarita Carrasco RN [facility] [employer] [facility], [employer] Comment on above: Method: Oral 03-16-2012 10:47-0400 Body weight 92.53 kg Margarita Danilo RN [facility] [employer] [facility] 03-16-2012 10:47-0400 Diastolic blood pressure 69 mm[Hg] Margarita Carrasco RN [facility] Comment on above: Patient Position: Sitting; Cuff Location : Left Arm; Cuff Size: Standard 03-16-2012 10:47-0400 Heart rate 86 /min Margarita Carrasco RN [facility] [employer] [facility] Comment on above: Pattern: Regular 03-16-2012 10:47-0400 Systolic blood pressure 109 mm[Hg] Margarita Carrasco RN [facility] [employer] [facility] Comment on above: Patient Position: Sitting; Cuff Location : Left Arm; Cuff Size: Standard 2012 09:55-0400 Body height 180.34 cm Raina Rahman RN [facility] [employer] [facility] 2012 09:55-0400 Body mass index (BMI) [Ratio] 29.01 kg/m2 Raina Rahman RN [facility] [employer] [facility] 2012 09:55-0400 Body surface area Derived from formula 2.14 m2 Raina Rahman RN [facility] [employer] [facility] 2012 09:55-0400 Body weight 94.35 kg Raina Rahman RN [facility] [employer] [facility] 2012 09:55-0400 Diastolic blood pressure 79 mm[Hg] Raina Rahman RN [facility] [employer] [facility] Comment on above: Patient Position: Sitting; Cuff Location : Left Arm; Cuff Size: Large 2012 09:55-0400 Heart rate 82 /min Raina Rahman RN [facility] [employer] [facility] Comment on above: Pattern: Regular 2012 09:55-0400 Systolic blood pressure 114 mm[Hg] Raina Rahman RN [facility]. Comment on above: Patient Position: Sitting; Cuff Location : Left Arm; Cuff Size: Large Encounters Encounter Date Encounter Type Care Provider Facility Start: 05-10-2025 End: 05-10-2025 ambulatory TRISTEN RAPHAEL Facility:[facility] Start: 05-04-2025 End: 05-04-2025 ambulatory FARRAH NELSON Facility:[facility] Start: 05-03-2025 End: 05-03-2025 ambulatory PABLO ULLOA Facility:[facility] Start: 04-26-2025 End: 04-26-2025 ambulatory JUHI ARELLANO Facility:[facility] Start: 04-26-2025 Encounter for genera l adult medical examination without abnormal findings JUHI ARELLANO [facility] Start: 04-26-2025 End: 04-27-2025 ambulatory TRISTEN RAPHAEL Facility:[facility] Start: 04-01-2025 End: 04-01-2025 Evaluation and management of inpatient Justin Grossman MD Work Phone: Radiation Oncology Comment on above: Multiple myeloma wit hout remission (HCC) (Primary Dx) Start: 04-01-2025 End: 04-02-2025 Patient encounter procedure [facility] Provider [facility] inic Department Comment on above: Simulation Note Treatment Planning Start: 03-30-2025 End: 04-07-2025 Evaluation and management of inpatient TRISTEN RAPHAEL Facility:[facility] Start: 03-29-2025 End: 03-29-2025 Emergency department patient visit FARRAH NELSON Facility:[facility] Start: 03-29-2025 End: 03-29-2025 Telephone encounter Rebeca Mann RN Work Phone: Hematology/Oncology Comment on above: Patient Update (ER V isit) Start: 03-28-2025 End: 03-28-2025 Telephone encounter Jasmina Arita RN Work Phone: Hematology/Oncology Comment on above: Symptoms Start: 03-25-2025 End: 03-25-2025 Telephone encounter Madina L Mauricio supervisor irrigation Services Comment on above: Care Coordination (f /u on Olanzapine ) Start: 03-23-2025 End: 03-23-2025 Telemedicine consultation with patient Zully Rivera APRN.DUCT LAYER HELPER Work Phone: Mobile Services Start: 03-23-2025 End: 03-23-2025 ambulatory Zully Rivera APRN.DUCT LAYER HELPER Work Phone: Mobile Services Comment on above: Palliative care by s pecialist (Primary Dx); Multiple myeloma not having achieved remission ; Cancer related pain; Neuropathy; Insomnia, unspecified type; Anxiety; Appetite impaired; Fatigue, unspecified type; Generalized weakness Refill Request Start: 03-22-2025 End: 03-22-2025 Telephone encounter Tristen Raphael MD Work Phone: Mobile Services Comment on above: [id number] initial consul tation Start: 03-19-2025 End: 03-19-2025 Office outpatient new 45 minutes Michael Llamas PA-C Work Phone: [facility] Comment on above: Dysuria (Primary Dx) ; Medication refill; Multiple myeloma, remission status unspecified (HCC); Primary hypertension; Hypothyroidism, unspecified type Start: 03-19-2025 End: 03-19-2025 ambulatory MICHAEL LLAMAS [facility] Start: 03-16-2025 End: 03-16-2025 Orders Only Jasmina Arita RN Work Phone: Hematology/Oncology Comment on above: Multiple myeloma, re mission status unspecified (HCC) (Primary Dx) Symptoms Start: 03-15-2025 End: 03-15-2025 Office outpatient visit 15 minutes NE CASANOVA MD Work Phone: [facility] Start: 03-15-2025 End: 03-15-2025 Orders Only [place] certified ophthalmic technician/Oncology Comment on above: Neuropathy (Primary Dx); Pain of right hip; Multiple myeloma in remission (HCC) Refill Request Start: 03-14-2025 End: 03-15-2025 ambulatory Tristen Raphael MD Work Phone: Hematology/Oncology Comment on above: re: Wan Nolan Start: 03-03-2025 End: 03-03-2025 ambulatory Jasmina Arita RN Work Phone: Hematology/Oncology Comment on above: labs Start: 03-03-2025 End: 03-03-2025 E-mail encounter from caregiver Jasmina Arita RN Work Phone: Hematology/Oncology Start: 03-02-2025 End: 03-02-2025 ambulatory [facility] Facility:[facility] Start: 02-28-2025 End: 02-28-2025 ambulatory Tristen Raphael MD Work Phone: Hematology/Oncology Start: 02-28-2025 End: 02-28-2025 Chart abstracting Tristen Raphael MD Work Phone: Hematology/Oncology Start: 02-28-2025 End: 02-28-2025 Telephone encounter Jasmina Arita RN Work Phone: Hematology/Oncology Comment on above: Dietetic Tech - O ther Start: 02-24-2025 End: 02-24-2025 ambulatory [facility] Start: 02-22-2025 End: 02-22-2025 ambulatory [facility] Facility:[facility] Start: 02-22-2025 End: 02-23-2025 ambulatory [facility] Facility:[facility] Start: 02-17-2025 End: 02-17-2025 Refill Tristen Raphael MD Work Phone: Hematology/Oncology Comment on above: Refill Request Start: 01-25-2025 End: 01-26-2025 Refill Tristen Raphael MD Work Phone: Hematology/Oncology Comment on above: Refill Request Start: 01-24-2025 End: 01-24-2025 Refill Tristen Raphael MD Work Phone: Hematology/Oncology Comment on above: Refill Request Start: 01-06-2025 ambulatory [facility] Facility: [facility] Start: 01-06-2025 End: 01-06-2025 Subsequent hospital visit by physician [facility] Maryana Mob Work Phone: Radiology Start: 12-23-2024 End: 12-23-2024 Refill Tristen Raphael MD Work Phone: Hematology/Oncology Comment on above: Refill Request Start: 12-20-2024 End: 12-20-2024 ambulatory Tristen Raphael MD Work Phone: Hematology/Oncology Comment on above: Wan Nolan - MRI and CT comparison - right hip/back Start: 12-16-2024 ambulatory TRISTEN RAPHAEL Facility:1 [id number] Start: 12-16-2024 End: 12-16-2024 Subsequent hospital visit by physician [facility] [address] Comment on above: 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) [C90.00] Start: 12-15-2024 End: 12-15-2024 ambulatory Tristen Raphael MD Work Phone: Hematology/Oncology Comment on above: re MRI results Start: 12-15-2024 End: 12-15-2024 Telephone encounter [place] certified ophthalmic technician/Oncology Start: 12-10-2024 ambulatory TRISTEN RAPHAEL Facility:1 [id number] Start: 12-06-2024 End: 12-06-2024 Telephone encounter Jasmina Arita RN Work Phone: Hematology/Oncology Comment on above: Pain Multiple myeloma in remission (HCC) (Primary Dx) Start: 11-26-2024 End: 11-26-2024 Refill Tristen Raphael MD Work Phone: Hematology/Oncology Comment on above: Refill Request Start: 11-04-2024 End: 11-04-2024 Telephone encounter Jasmina Arita RN Work Phone: Hematology/Oncology Comment on above: Results Multiple myeloma, re mission status unspecified (HCC) (Primary Dx) Start: 11-02-2024 End: 11-02-2024 Refill Tristen Raphael MD Work Phone: Hematology/Oncology Comment on above: Refill Request Start: 10-26-2024 End: 10-26-2024 ambulatory TRISTEN RAPHAEL Facility:[facility] Start: 10-19-2024 End: 10-19-2024 Patient encounter procedure Farrah Nelson PA-C Work Phone: Neurology Comment on above: Neuropathy (Primary Dx); Numbness and tingling; Degeneration of intervertebral disc of lumbar region, unspecified whether pain present; Pain in right hip Start: 10-19-2024 End: 10-19-2024 ambulatory FARRAH NELSON Facility:[facility] Start: 10-15-2024 End: 10-15-2024 ambulatory SERAFIN [facility] Start: 09-29-2024 End: 09-30-2024 Refill Jasmina Arita RN Work Phone: Hematology/Oncology Comment on above: Refill Request Start: 09-15-2024 End: 09-15-2024 ambulatory Jasmina Arita RN Work Phone: Hematology/Oncology Comment on above: labs light chains Start: 09-15-2024 End: 09-15-2024 E-mail encounter from caregiver Jasmina Arita RN Work Phone: Hematology/Oncology Start: 09-06-2024 End: 09-06-2024 ambulatory Kane Maria MD Work Phone: Kidney Medicine Comment on above: Hypertensive kidney disease with stage 3b chronic kidney disease (HCC) (Primary Dx); Stage 3b chronic kidney disease (HCC); Secondary renal hyperparathyroidism (HCC); Anemia of renal disease; Multiple myeloma not having achieved remission Start: 09-06-2024 End: 09-06-2024 Telemedicine consultation with patient Kane Maria MD Work Phone: Kidney Medicine Start: 09-01-2024 End: 09-01-2024 Refill Pablo Ulloa APRN.CNP Work Phone: Hematology/Oncology Comment on above: Refill Request Start: 08-16-2024 End: 08-16-2024 Refill Tristen Raphael MD Work Phone: Hematology/Oncology Comment on above: Refill Request Start: 08-10-2024 End: 08-10-2024 Refill Ellen Messina APRN.CNP, PhD Work Phone: Hematology/Oncology Comment on above: Refill Request Start: 08-10-2024 End: 08-10-2024 Telephone encounter Tristen Raphael MD Work Phone: Hematology/Oncology Comment on above: Dietetic Tech - O ther (Pomolyst ) Start: 08-05-2024 End: 12-31-2024 Refill Jasmina Arita RN Work Phone: Hematology/Oncology Comment on above: Refill Request Start: 07-27-2024 End: 07-27-2024 ambulatory Tristen Raphael MD Work Phone: Hematology/Oncology Comment on above: Multiple myeloma in remission (HCC) (Primary Dx); Neuropathy; Numbness and tingling; Chemotherapy induced diarrhea; 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) Start: 07-27-2024 End: 07-27-2024 Telemedicine consultation with patient Tristen Raphael MD Work Phone: Hematology/Oncology Start: 07-20-2024 End: 07-20-2024 ambulatory TRISTEN RAPHAEL Facility:[facility] Start: 07-19-2024 End: 07-19-2024 Telephone encounter Jasmina Arita RN Work Phone: Hematology/Oncology Comment on above: Dietetic Tech - O ther Start: 07-07-2024 End: 07-07-2024 Refill Jasmina Arita RN Work Phone: Hematology/Oncology Comment on above: Refill Request Start: 06-15-2024 End: 06-15-2024 Refill Tristen Raphael MD Work Phone: Hematology/Oncology Comment on above: Refill Request Start: 05-25-2024 End: 05-25-2024 [facility] Start: 05-25-2024 End: 05-25-2024 Subsequent hospital visit by physician [facility] Work Phone: Radiology Comment on above: Stage 3b chronic kid jeremiah disease (HCC) [N18.32] Start: 05-24-2024 End: 05-24-2024 Office outpatient visit 15 minutes NE CASANOVA MD Work Phone: [facility] Start: 05-18-2024 End: 05-18-2024 Refill Migue Liz DUCT LAYER HELPER Work Phone: Hematology/Oncology Comment on above: Refill Request Start: 04-27-2024 End: 04-27-2024 ambulatory Tristen Raphael MD Work Phone: Hematology/Oncology Comment on above: Multiple myeloma in remission (HCC) (Primary Dx); Lung nodules; Stage 3b chronic kidney disease (HCC) Start: 04-27-2024 End: 04-27-2024 Patient encounter procedure Tristen Raphael MD Work Phone: Hematology/Oncology Start: 04-20-2024 End: 04-20-2024 Subsequent hospital visit by physician [facility]) Work Phone: Cat Scan Comment on above: Lung nodules [R91.8] Start: 04-15-2024 End: 04-20-2024 Refill Jasmina Arita RN Work Phone: Hematology/Oncology Comment on above: Refill Request Start: 03-18-2024 End: 03-18-2024 Subsequent hospital visit by physician [facility] Maryana Gómez Work Phone: Radiology Start: 03-15-2024 End: 03-15-2024 Refill Jasmina Arita RN Work Phone: Hematology/Oncology Comment on above: Refill Request Start: 03-09-2024 End: 03-09-2024 Patient encounter procedure Farrah Nelson PA-C Work Phone: Neurology Comment on above: Neuropathy (Primary Dx); Numbness and tingling; Degeneration of lumbar intervertebral disc; Right leg weakness Start: 03-08-2024 End: 03-08-2024 Patient encounter procedure Kane Maria MD Work Phone: Kidney Medicine Comment on above: Hypertensive kidney disease with stage 3b chronic kidney disease (HCC) (Primary Dx); Stage 3b chronic kidney disease (HCC); Multiple myeloma not having achieved remission ; Anemia of renal disease; Secondary renal hyperparathyroidism (HCC) Start: 02-25-2024 End: 02-25-2024 ambulatory Tristen Raphael MD Work Phone: Hematology/Oncology Comment on above: Multiple myeloma in remission (HCC) (Primary Dx); Lung nodules; Drug-induced constipation; Stage 3b chronic kidney disease (HCC); Skin cancer Start: 02-25-2024 End: 02-25-2024 Patient encounter procedure Tristen Raphael MD Work Phone: Hematology/Oncology Start: 02-18-2024 Refill Jasmina Arita RN Work Phone: Hematology/Oncology Comment on above: Refill Request Start: 01-27-2024 Refill Farrah montanez PA-C Work Phone: Neurology Comment on above: Refill Request Start: 2024 Refill Jasmina Arita RN Work Phone: Hematology/Oncology Comment on above: Refill Request Start: 12-25-2023 Telephone encounter Jasmina snell RN Work Phone: Hematology/Oncology Comment on above: Knee Pain Refill Request Start: 12-24-2023 End: 12-24-2023 Office outpatient visit 15 minutes NE CASANOVA MD Work Phone: [facility] Start: 12-24-2023 Telephone encounter Jasmina snell RN Work Phone: Hematology/Oncology Comment on above: Pain Start: 11-28-2023 Refill Jasmina Arita RN Work Phone: Hematology/Oncology Comment on above: Refill Request Start: 11-20-2023 Orders Only Jasmina Arita RN Work Phone: Hematology/Oncology Comment on above: Multiple myeloma, re mission status unspecified (HCC) (Primary Dx) Start: 11-17-2023 Orders Only Tristen Raphael MD Work Phone: Hematology/Oncology Comment on above: Stage 3b chronic kid jeremiah disease (HCC) (Primary Dx) kidney function Start: 11-12-2023 End: 11-12-2023 ambulatory Tristen Raphael MD Work Phone: Hematology/Oncology Comment on above: Multiple myeloma in remission (HCC) (Primary Dx); Stage 3b chronic kidney disease (HCC) Start: 11-12-2023 End: 11-12-2023 Patient encounter procedure Tristen Raphael MD Work Phone: Hematology/Oncology Start: 10-31-2023 Refill Jasmina Arita RN Work Phone: Hematology/Oncology Comment on above: Refill Request Start: 10-07-2023 Telephone encounter Farrah roque PA-C Work Phone: Neurology Start: 10-07-2023 End: 10-07-2023 Patient encounter procedure Farrah Nelson PA-C Work Phone: Neurology Comment on above: Neuropathy (Primary Dx); Numbness and tingling; Right leg weakness; Neuropathy due to chemotherapeutic drug (HCC); Degeneration of lumbar intervertebral disc Start: 10-06-2023 Refill Jasmina Airta RN Work Phone: Hematology/Oncology Comment on above: Refill Request Start: 09-09-2023 Refill Jasmina Arita RN Work Phone: Hematology/Oncology Comment on above: Refill Request Start: 07-28-2023 End: 07-28-2023 Office outpatient visit 15 minutes NE CASANOVA MD Work Phone: [facility]. Start: 06-19-2023 End: 05-26-2024 Refill Jasmina Arita RN Work Phone: Hematology/Oncology Comment on above: Refill Request Start: 05-22-2023 Refill Jasmina Arita RN Work Phone: Hematology/Oncology Comment on above: Refill Request Start: 05-21-2023 End: 05-21-2023 Patient encounter procedure Farrah Nelson PA-C Work Phone: Neurology Comment on above: Neuropathy (Primary Dx); Numbness and tingling; Right leg weakness; Neuropathy due to chemotherapeutic drug (HCC) Start: 05-15-2023 End: 05-15-2023 [facility] Work Phone: Cat Scan Comment on above: Lung nodules [R91.8] Start: 05-07-2023 End: 05-07-2023 Orders Only Tristen Raphael MD Work Phone: Hematology/Oncology Comment on above: Multiple myeloma, re mission status unspecified (HCC) (Primary Dx) Multiple myeloma in remission (HCC) (Primary Dx); Lung nodules; Pain of right hip Start: 05-05-2023 End: 05-05-2023 Injection/immunization only NE CASANOVA MD Work Phone: [facility] Start: 05-05-2023 End: 05-05-2023 [facility] Work Phone: Cat Scan Comment on above: Pain of right hip [M 25.551] Start: 04-24-2023 Refill Rebeca gomez RN Work Phone: Hematology/Oncology Comment on above: Refill Request Start: 03-28-2023 Refill Rebeca gomez RN Work Phone: Hematology/Oncology Comment on above: Refill Request Start: 02-06-2023 End: 02-06-2023 Patient encounter procedure Kelin Madden APRN.CNP Work Phone: Neurology Comment on above: Neuropathy (Primary Dx); Numbness and tingling; Right leg weakness; Pain in right hip; Neuropathy due to chemotherapeutic drug (HCC) Start: 01-29-2023 End: 01-29-2023 ambulatory Tristen Raphael MD Work Phone: Hematology/Oncology Comment on above: Multiple myeloma in remission (HCC) (Primary Dx); Chemotherapy-induced neutropenia (HCC); Stage 3a chronic kidney disease (HCC); Chemotherapy-induced thrombocytopenia Start: 01-29-2023 End: 01-29-2023 Patient encounter procedure Tristen Raphael MD Work Phone: [facility] Start: 01-02-2023 Refill Jasimna Arita RN Work Phone: Hematology/Oncology Comment on above: Refill Request Start: 11-11-2022 Telephone encounter Jasmina snell RN Work Phone: Hematology/Oncology Comment on above: Results - Ct Start: 11-05-2022 End: 11-05-2022 Subsequent hospital visit by physician [facility] Work Phone: Cat Scan Comment on above: Lung nodules [R91.8] Start: 11-04-2022 End: 12-06-2024 Refill Jasmina Arita RN Work Phone: Hematology/Oncology Comment on above: Refill Request Multiple myeloma in remission (HCC) (Primary Dx) Start: 10-30-2022 End: 10-30-2022 Subsequent hospital visit by physician [facility] Work Phone: Radiology Comment on above: Rib pain [R07.81] Start: 10-30-2022 End: 10-31-2022 ambulatory Tristen Raphael MD Work Phone: Hematology/Oncology Comment on above: Multiple myeloma in remission (HCC) (Primary Dx); Rib pain Start: 10-30-2022 End: 10-31-2022 Patient encounter procedure Tristen Raphael MD Work Phone: [facility] Start: 10-21-2022 End: 10-21-2022 Subsequent hospital visit by physician [facility] Maryana Mob Work Phone: Radiology Start: 10-10-2022 End: 10-10-2022 Patient encounter procedure Kelin Madden APRN.DUCT LAYER HELPER Work Phone: Neurology Comment on above: Neuropathy (Primary Dx); Numbness and tingling Start: 10-07-2022 Refill Ilana Carroll RN Hematolog y/Oncology Comment on above: Refill Request Start: 09-05-2022 Refill Jasmina Arita RN Work Phone: Hematology/Oncology Comment on above: Refill Request Start: 09-03-2022 Telephone encounter Tristen Freire i, MD Work Phone: Hematology/Oncology Comment on above: Dietetic Tech - O ther (Clarification on order) Start: 08-20-2022 Refill Eddie moran MD Work Phone: Neurology Comment on above: Refill Request; Medi cation Problem Start: 08-12-2022 Refill Tristen Raphael MD Work Phone: Hematology/Oncology Comment on above: Refill Request Start: 08-09-2022 Refill Tristen Raphael MD Work Phone: Hematology/Oncology Comment on above: Refill Request Start: 08-08-2022 Refill Jasmina Arita RN Work Phone: Hematology/Oncology Comment on above: Refill Request Start: 07-31-2022 End: 08-01-2022 ambulatory Tristen Raphael MD Work Phone: Hematology/Oncology Comment on above: Multiple myeloma in remission (HCC) (Primary Dx) Start: 07-31-2022 End: 08-01-2022 Patient encounter procedure Tristen Raphael MD Work Phone: [facility] Start: 07-24-2022 Refill Jasmina Arita RN Work Phone: Hematology/Oncology Comment on above: Refill Request Start: 07-19-2022 Telephone encounter Tristen Freire i, MD Work Phone: Hematology/Oncology Comment on above: Dietetic Tech - O ther (Medication) Refill Request Start: 07-17-2022 Refill Jasmina Arita RN Work Phone: Hematology/Oncology Comment on above: Refill Request Start: 07-11-2022 Refill Jasmina Arita RN Work Phone: Hematology/Oncology Comment on above: Refill Request Start: 06-17-2022 Refill Jasmina Arita RN Work Phone: Hematology/Oncology Comment on above: Refill Request Start: 06-08-2022 Refill Tristen Raphael MD Work Phone: Hematology/Oncology Comment on above: Refill Request Start: 05-20-2022 Telephone encounter Jasmina snell RN Work Phone: Hematology/Oncology Comment on above: Information (bronchi tis) Start: 05-10-2022 Refill Jasmina Arita RN Work Phone: Hematology/Oncology Comment on above: Refill Request Start: 04-24-2022 End: 04-24-2022 ambulatory Tristen Raphael MD Work Phone: Hematology/Oncology Comment on above: Multiple myeloma in remission (HCC) (Primary Dx) Start: 04-24-2022 End: 04-24-2022 Patient encounter procedure Tristen Raphael MD Work Phone: [facility] Start: 04-18-2022 End: 04-18-2022 Patient encounter procedure Kelin Madden SPECIAL COLLECTIONS LIBRARIAN.DUCT LAYER HELPER Work Phone: Neurology Comment on above: Neuropathy (Primary Dx); Numbness and tingling Start: 04-10-2022 Telephone encounter Tristen Freire i, MD Work Phone: Hematology/Oncology Comment on above: Dietetic Tech - O ther (Compression socks ) Start: 04-08-2022 Telephone encounter Jasmina snell RN Work Phone: Hematology/Oncology Comment on above: Edema Start: 03-22-2022 Refill Jasmina Arita RN Work Phone: Hematology/Oncology Comment on above: Refill Request Start: 03-22-2022 End: 03-22-2022 Office outpatient visit 15 minutes NE CASANOVA MD Work Phone: [facility] Start: 03-14-2022 Telephone encounter Jasmina snell RN Work Phone: Hematology/Oncology Comment on above: URI Start: 03-14-2022 End: 03-14-2022 Office outpatient visit 15 minutes NE CSAANOVA MD Work Phone: [facility] Start: 03-01-2022 Refill Tristen Raphael MD Work Phone: Hematology/Oncology Comment on above: Refill Request Start: 02-26-2022 Telephone encounter Tristen Freire i, MD Work Phone: Hematology/Oncology Comment on above: Care Coordination Start: 02-25-2022 Refill Jasmina Arita RN Work Phone: Hematology/Oncology Comment on above: Refill Request Start: 02-06-2022 End: 02-06-2022 Patient encounter procedure Tristen Raphael MD Work Phone: [facility] Start: 02-06-2022 End: 02-06-2022 ambulatory Lab [facility] Work Phone: Hematology/Oncology Comment on above: Multiple myeloma, re mission status unspecified (HCC) (Primary Dx) Multiple myeloma in remission (HCC) (Primary Dx); Multiple myeloma not having achieved remission Multiple myeloma in remission (HCC) (Primary Dx); Acute bronchitis, unspecified organism; Acute cough Start: 02-04-2022 End: 02-04-2022 Medication Refill/Order NE CASANOVA MD Work Phone: [facility] Start: 02-04-2022 Telephone encounter Jasmina snell RN Work Phone: Hematology/Oncology Comment on above: URI Start: 02-04-2022 End: 02-04-2022 Medication Refill/Order NE CASANOVA MD Work Phone: [facility] Start: 01-31-2022 End: 01-31-2022 Office outpatient visit 15 minutes NE CASANOVA MD Work Phone: [facility] Start: 01-28-2022 Refill Jasmina Arita RN Work Phone: Hematology/Oncology Comment on above: Refill Request Start: 01-10-2022 End: 01-10-2022 Patient encounter procedure Kelin Madden [employer]ANDONStoneDU[employer] LAYER HELPER Work Phone: Neurology Comment on above: Neuropathy (Primary Dx); Numbness and tingling Start: 12-31-2021 Refill Jasmina Arita RN Work Phone: Hematology/Oncology Comment on above: Refill Request Start: 12-03-2021 Refill Jasmina Arita RN Work Phone: Hematology/Oncology Comment on above: Refill Request Start: 11-23-2021 End: 11-23-2021 Office outpatient visit 15 minutes NE CASANOVA MD Work Phone: [facility] Start: 11-22-2021 Telephone encounter Jasmina snell RN Work Phone: Hematology/Oncology Comment on above: Symptoms Start: 11-21-2021 End: 11-21-2021 ambulatory Treatment 12 [facility] [employer] Work Phone: Hematology/Oncology Comment on above: Multiple myeloma not having achieved remission (Primary Dx) Start: 11-20-2021 Orders Only Tristen Raphael MD Work Phone: Hematology/Oncology Start: 11-14-2021 Refill Jasmina Arita RN Work Phone: Hematology/Oncology Comment on above: Refill Request Start: 11-07-2021 End: 11-07-2021 ambulatory Treatment Rm 11 [facility] Work Phone: Hematology/Oncology Comment on above: Multiple myeloma not having achieved remission (Primary Dx) Start: 11-06-2021 Orders Only Trisetn Raphael MD Work Phone: Hematology/Oncology Comment on above: Multiple myeloma, re mission status unspecified (HCC) (Primary Dx) Start: 10-30-2021 Refill Tristen Raphael MD Work Phone: Hematology/Oncology Comment on above: Refill Request Start: 10-25-2021 End: 10-25-2021 ambulatory Treatment Rm 5 [facility] Work Phone: Hematology/Oncology Comment on above: Multiple myeloma not having achieved remission (Primary Dx) Start: 10-18-2021 Orders Only Tristen Raphael MD Work Phone: Hematology/Oncology Start: 07-26-2021 End: 07-26-2021 Subsequent hospital visit by physician [facility] [place] Work Phone: Radiology Comment on above: Spinal stenosis, 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] Start: 06-04-2021 End: 06-04-2021 Historical Summary NE CASANOVA MD Work Phone: [facility] Start: 05-28-2021 End: 05-28-2021 Office outpatient visit 15 minutes NE CASANOVA MD Work Phone: [facility] Start: 04-19-2021 End: 04-19-2021 Office outpatient visit 15 minutes NE CASANOVA MD Work Phone: [facility] Start: 03-08-2021 End: 03-08-2021 Subsequent hospital visit by physician [facility] Work Phone: Radiology Comment on above: S/P lumbar fusion [Z 98.1] Start: 12-08-2020 End: 12-08-2020 Office outpatient visit 15 minutes NE CASANOVA MD Work Phone: [facility] Start: 11-14-2020 End: 11-14-2020 Office outpatient visit 15 minutes NE CASANOVA MD Work Phone: [facility] Start: 09-08-2020 End: 09-08-2020 Office outpatient visit 15 minutes NE CASANOVA MD Work Phone: [facility] Start: 03-31-2020 End: 03-31-2020 Office outpatient visit 25 minutes NE CASANOVA MD Work Phone: [place] [employer] [facility] [employer] Start: 03-04-2019 End: 03-04-2019 Historical Summary NE CASANOVA MD Work Phone: [facility] [employer] Start: 02-11-2019 End: 02-11-2019 Office outpatient visit 15 minutes NE CASANOVA MD Work Phone: [facility] [employer] Start: 06-16-2018 End: 06-16-2018 Historical Summary [facility] Start: 04-24-2018 End: 04-24-2018 Injection/immunization only NE CASANOVA MD [facility] Start: 04-16-2018 End: 04-16-2018 Lab Only NE CASANOVA MD Work Phone: [place] [employer] [facility] [employer] Start: 04-13-2018 End: 04-13-2018 Office outpatient visit 15 minutes NE CASANOVA MD Work Phone: [place] [employer] [facility] [employer]. Start: 01-14-2018 End: 01-14-2018 Annotation/Addendum NE CASANOVA MD Work Phone: [facility] [employer] Start: 12-17-2017 End: 12-17-2017 Results Review NE CASANOVA MD Work Phone: [facility] [employer]. Start: 12-16-2017 End: 12-16-2017 Office outpatient visit 15 minutes NE CASANOVA MD Work Phone: [employer] [employer]. Start: 12-16-2017 End: 12-16-2017 Physical examination NE CASANOVA MD Work Phone: [facility] [employer]; [facility] [employer]. Start: 05-16-2017 End: 05-16-2017 Injection/immunization only NE CASANOVA MD Work Phone: [facility] Start: 12-19-2016 End: 12-19-2016 Office outpatient visit 15 minutes NE CASANOVA MD Work Phone: [employer]. Start: 04-15-2016 End: 04-15-2016 Procedure Order NE CASANOVA MD Work Phone: [employer]. Start: 04-12-2016 End: 04-12-2016 Lab Only NE CASANOVA MD Work Phone: [employer]. Start: 04-12-2016 End: 04-12-2016 Historical Summary NE CASANOVA MD Work Phone: [employer] [facility] [employer] Start: 04-12-2016 End: 04-12-2016 Office outpatient visit 15 minutes NE CASANOVA MD Work Phone: [employer] [place] [employer] Start: 04-25-2015 End: 04-25-2015 Office outpatient visit 15 minutes NE CASANOVA MD Work Phone: [facility] Start: 09-27-2014 End: 09-27-2014 Office outpatient visit 15 minutes NE CASANOVA MD Work Phone: [facility] Start: 04-30-2012 End: 04-30-2012 Injection/immunization only NE CASANOVA MD Work Phone: [employer] Start: 03-16-2012 End: 03-16-2012 Patient encounter procedure NE CASANOVA MD Work Phone: [facility] Start: 2012 End: 2012 Patient encounter procedure NE CASANOVA MD Work Phone: [facility] Start: 03-07-2010 End: 03-07-2010 Historical Summary NE CASANOVA MD Work Phone: [facility] Physical examination MOE GUZMANP-C Work Phone: [facility] Procedures Date Procedure Procedure Detail Performing Clinician Start: 04-26-2025 Antibody screen FARRAH NELSON Comment on above: Order Comment: Speci men Type: BLOOD SPECIMENOrdering Facility: [facility] Address: [address] [place] [address] Performed By: #### P MEL DAGT ####CC [facility] BLOOD BANKCLIA [id number] [address] [place]#### BBABINT ####[facility] LABCLIA [id number] [address] [place] Start: 03-19-2025 Urnls dip stick/tabl et rgnt auto w/o microscopy Michael Llamas PA-C Work Phone: Start: 03-15-2025 End: 03-15-2025 Dischrg meds reconciled w/current med list NE CASANOVA MD Work Phone: Start: 03-08-2024 Creatinine other source Kane Maria MD Work Phone: Start: 03-08-2024 Urnls dip stick/tabl et rgnt auto w/o microscopy Kane Maria MD Work Phone: Start: 12-24-2023 End: 12-24-2023 Dischrg meds reconciled w/current med list DELIA GUZMANP-BC Work Phone: Start: 07-28-2023 End: 07-28-2023 Dischrg meds reconciled w/current med list NE CASANOVA MD Work Phone: Start: 05-15-2023 Ct thorax w/o contra st material Tristen Raphael MD Work Phone: Start: 05-05-2023 End: 05-05-2023 Aiiv4 vacc inactivated prsrv fr 0.5ml dos im use NE CASANOVA MD Work Phone: Start: 05-05-2023 Ct lower extremity w /o contrast material Tristen Raphael MD Work Phone: Start: 11-05-2022 Ct thorax w/o contra st material Tristen Raphael MD Work Phone: Start: 10-30-2022 Radex ribs unilatera l 2 views Tristen Raphael MD Work Phone: Start: 10-07-2022 Urinalysis NE ALEJANDRO MD Work Phone: Start: 03-14-2022 End: 03-14-2022 Dischrg meds reconciled w/current med list NE CASANOVA MD Work Phone: Start: 02-06-2022 Assay of gammaglobul in iga igd igg igm each Tristen Raphael MD Work Phone: Start: 02-06-2022 Basic metabolic pane l calcium total Tristen Raphael MD Work Phone: Start: 02-04-2022 End: 02-04-2022 Collj & interpj physiol data min 30 min ea 30 d NE CASANOVA MD Work Phone: Start: 01-31-2022 End: 01-31-2022 Dischrg meds reconciled w/current med list NE CASANOVA MD Work Phone: Start: 11-23-2021 End: 11-23-2021 Dischrg meds reconciled w/current med list Tomy NOLAN MD Work Phone: Start: 07-26-2021 Radex spine lumbosac ral 2/3 views Amberly Howard SPECIAL COLLECTIONS LIBRARIAN.DUCT LAYER HELPER Work Phone: Start: 03-08-2021 Radex spine lumbosac ral 2/3 views Damien Palacios MD Work Phone: Start: 12-08-2020 End: 12-08-2020 Dischrg meds reconciled w/current med list MOE THORNTON [employer] MAKER-C Work Phone: Start: 12-08-2020 End: 12-08-2020 Urinary Incontinence Margarita Carrasco RN Comment on above: Negative. Start: 11-14-2020 End: 11-14-2020 Radex shoulder complete minimum 2 views Jeannine DENNEY MD Work Phone: Start: 09-08-2020 End: 09-08-2020 Dischrg meds reconciled w/current med list Margarita Carrasco RN Start: 08-21-2020 End: 08-21-2020 Vaccination given Margarita Carrasco RN Comment on above: and 07/2020 (Pfizer) 3rd one 04-30-21. Start: 07-11-2020 End: 07-11-2020 spinal fusion MOE THORNTON [employer]UST[employer] SK[employer] MAKER-C Work Phone: Start: 02-11-2019 End: 02-11-2019 Dischrg meds reconciled w/current med list NE CASANOVA MD Work Phone: Start: 01-14-2018 End: 01-14-2018 Annual Medicare Wellness Visit Margarita Carrasco RN Comment on above: Declined Start: 12-16-2017 End: 12-16-2017 Falls risk assessment documented Jeannine DENNEY MD Work Phone: Start: 12-16-2017 End: 12-16-2017 Fall Risk Assessment Margarita Carrasco RN Comment on above: 2 Start: 07-21-2017 End: 07-21-2017 Colonoscopy MOE THORNTON [employer] MAK[employer]-C Work Phone: Comment on above: Repeat 2018 Start: 12-19-2016 End: 12-19-2016 Falls risk assessment documented SANJANA CASANOVA MD Work Phone: Plan of Treatment Date Care Activity Detail Author Start: 04-01-2028 Diabetes Screening Diabetes Screening [facility] Start: 03-29-2028 Diabetes Screening Diabetes Screening [facility] Start: 03-02-2028 Diabetes Screening Diabetes Screening [facility] Start: 02-23-2028 Diabetes Screening Diabetes Screening [facility] Start: 10-27-2027 Diabetes Screening Diabetes Screening [facility] Start: 07-20-2027 Diabetes Screening Diabetes Screening [facility] Start: 05-25-2027 Diabetes Screening Diabetes Screening [facility] Start: 04-20-2027 Diabetes Screening Diabetes Screening [facility] Start: 02-24-2027 Diabetes Screening Diabetes Screening [facility] Start: 01-12-2027 Diabetes Screening Diabetes Screening [facility] Start: 12-15-2026 Diabetes Screening Diabetes Screening [facility] Start: 11-11-2026 Diabetes Screening Diabetes Screening [facility] Start: 04-21-2025 End: 04-21-2025 ambulatory 04/21/2025 10:30 AM EDT [facility] [employer] [facility] [address] [place] [address] Zully Rivera, BRANDON.DUCT LAYER HELPER [address] [place] [address] 4 w vv [employer] [facility] Comment on above: 4 w vv Start: 04-20-2025 End: 04-20-2025 Patient encounter procedure 04/20/2025 10:30 AM EDT Office Visit Neurology [address] [place] [address] Farrah Nelson PA-C [address] [place], [place] [id number] 6 month follow up Neurology Comment on above: 6 month follow up Start: 04-14-2025 End: 04-14-2025 ambulatory [facility] [address] Comment on above: LAB HS DISCHARGE Start: 04-07-2025 End: 04-07-2025 ambulatory 04/07/2025 8:45 AM EDT Infusion Center Hematology/Oncology [address] [place] [address] C90.00 Hematology/Oncolog y Comment on above: C90.00 Start: 03-31-2025 End: 03-31-2025 Patient encounter procedure [facility] Comment on above: Other urinary incontinence, ([place], HStoneM) Other urinary incont inence, Records in Care Everywhere at [facility] Start: 03-23-2025 End: 03-23-2025 ambulatory 03/23/2025 11:00 AM EDT [facility] [employer] [facility] [address] [place] [address] [address] [place] [address] Zully Rivera, SPECIAL COLLECTIONS LIBRARIAN.DUCT LAYER HELPER [address] [place] [phone] confirmed 03/22/25 mp [email or web address] [facility] Comment on above: [phone] confirmed 03/22/25 mp Start: 03-21-2025 Influenza [facility] Start: 03-17-2025 End: 03-17-2025 Patient encounter procedure 03/17/2025 3:00 PM EDT Office Visit [facility] [address] [place] [address] Anatoly Fermin, SPECIAL COLLECTIONS LIBRARIAN.DUCT LAYER HELPER [address] [facility] [address] [place] [address] Other urinary incontinence [facility] Comment on above: Other urinary incontinence Start: 03-15-2025 MCR/MCR Adv Estab problem management (G2211) MCR/MCR Adv Estab problem management (G2211) Start: 15-Mar-2025 [facility] Start: 03-04-2025 End: 05-29-2025 CBC W Auto Differential panel - Blood COMPLETE BLOOD COUNT AND DIFFERENTIAL Lab Routine Multiple myeloma, remission status unspecified (HCC) Expected: 03/04/2025 (Approximate), Expires: 05/29/2025 [facility] Work Phone: Comment on above: Expected: 03/04/2025 (Approximate), Expi res: 05/29/2025 Start: 03-04-2025 End: 05-29-2025 Comprehensive metabolic 2000 panel - Serum or Plasma COMPREHENSIVE METABOLIC PANEL Lab Routine Multiple myeloma, remission status unspecified (HCC) Expected: 03/04/2025 (Approximate), Expires: 05/29/2025 [facility] Comment on above: Expected: 03/04/2025 (Approximate), Expi res: 05/29/2025 Start: 03-04-2025 End: 05-29-2025 MONOCLONAL PROTEIN, SERUM (BLOOD) MONOCLONAL PROTEIN, SERUM (BLOOD) Lab Routine Multiple myeloma, remission status unspecified (HCC) Expected: 03/04/2025 (Approximate), Expires: 05/29/2025 [facility] Comment on above: Expected: 03/04/2025 (Approximate), Expi res: 05/29/2025 Start: 03-04-2025 End: 05-29-2025 PROTEIN ELECTROPHORESIS SERUM W/INTERP PROTEIN ELECTROPHORESIS SERUM W/INTERP Lab Routine Multiple myeloma, remission status unspecified (HCC) Expected: 03/04/2025 (Approximate), Expires: 05/29/2025 [facility] Comment on above: Expected: 03/04/2025 (Approximate), Expi res: 05/29/2025 Start: 03-02-2025 End: 03-02-2025 ambulatory 03/02/2025 11:15 AM EDT Results Only [facility] [address] [place] [address] labs [facility] Comment on above: labs Start: 02-22-2025 End: 02-22-2025 Follow-up encounter 02/22/2025 3:00 PM EDT Visit (SP) Office Hematology/Oncology [address] [place] [address] Tristen Raphael MD [address] [place] [address] FOLLOW UP Hematology/Oncolog y Comment on above: FOLLOW UP Start: 02-22-2025 End: 02-22-2025 ambulatory 02/22/2025 2:00 PM EDT Results Only [facility] [place] [address] [place] [address] LABS [facility] [address] Comment on above: LABS Start: 02-11-2025 End: 05-13-2025 CBC W Auto Differential panel - Blood COMPLETE BLOOD COUNT AND DIFFERENTIAL Lab Routine Multiple myeloma, remission status unspecified (HCC) Expected: 02/11/2025 (Approximate), Expires: 05/13/2025 [facility] Work Phone: Comment on above: Expected: 02/11/2025 (Approximate), Expi res: 05/13/2025 Start: 02-11-2025 End: 05-13-2025 Comprehensive metabolic 2000 panel - Serum or Plasma COMPREHENSIVE METABOLIC PANEL Lab Routine Multiple myeloma, remission status unspecified (HCC) Expected: 02/11/2025 (Approximate), Expires: 05/13/2025 [facility] Comment on above: Expected: 02/11/2025 (Approximate), Expi res: 05/13/2025 Start: 02-11-2025 End: 05-13-2025 MONOCLONAL PROTEIN, SERUM (BLOOD) MONOCLONAL PROTEIN, SERUM (BLOOD) Lab Routine Multiple myeloma, remission status unspecified (HCC) Expected: 02/11/2025 (Approximate), Expires: 05/13/2025 [facility] Comment on above: Expected: 02/11/2025 (Approximate), Expi res: 05/13/2025 Start: 02-11-2025 End: 05-13-2025 PROTEIN ELECTROPHORESIS SERUM W/INTERP PROTEIN ELECTROPHORESIS SERUM W/INTERP Lab Routine Multiple myeloma, remission status unspecified (HCC) Expected: 02/11/2025 (Approximate), Expires: 05/13/2025 [facility] Comment on above: Expected: 02/11/2025 (Approximate), Expi res: 05/13/2025 Start: 02-08-2025 End: 02-08-2025 ambulatory 02/08/2025 1:00 PM EDT Visit (SP) Office Hematology/Oncology [address] [place] [address] Tristen Raphael MD [address] [place] [address] C90.00 Hematology/Oncolog y Comment on above: C90.00 Start: 01-31-2025 End: 01-31-2025 ambulatory 01/31/2025 11:00 AM EDT Results Only Maryana Oleary [facility] [address] [place] [address] LABS Maryana [place] [facility] Comment on above: LABS Start: 12-16-2024 End: 12-16-2024 Patient encounter procedure 12/16/2024 9:40 AM EDT Appointment [facility] [address] [facility] [place] [address] CT HIP WO IVCON RIGHT [facility] CT SCAN Comment on above: CT HIP WO IVCON RIGHT Start: 12-12-2024 Covid-19 Vaccine (9 - Pfizer risk season) Covid-19 Vaccine (9 - Pfizer risk ) [facility] Start: 12-10-2024 End: 12-10-2024 Patient encounter procedure MRI Scan Comment on above: MRI LUMBAR SPINE WO IVCON Start: 11-03-2024 End: 11-03-2024 ambulatory Hematology/Oncolog y Comment on above: labs locally Start: 10-27-2024 End: 10-27-2024 ambulatory 10/27/2024 10:00 AM EDT Results Only Maryana Oleary [facility] Laboratory [address] [place] [address] LABS Maryana [place] [facility] Laboratory Comment on above: LABS Start: 10-25-2024 End: 01-24-2025 CBC W Auto Differential panel - Blood COMPLETE BLOOD COUNT AND DIFFERENTIAL Lab Routine Multiple myeloma in remission (HCC) Expected: 10/25/2024 (Approximate), Expires: 01/24/2025 [facility] Work Phone: Comment on above: Expected: 10/25/2024 (Approximate), Expi res: 01/24/2025 Start: 10-25-2024 End: 01-24-2025 Comprehensive metabolic 2000 panel - Serum or Plasma COMPREHENSIVE METABOLIC PANEL Lab Routine Multiple myeloma in remission (HCC) Expected: 10/25/2024 (Approximate), Expires: 01/24/2025 [facility] Comment on above: Expected: 10/25/2024 (Approximate), Expi res: 01/24/2025 Start: 10-25-2024 End: 01-24-2025 MONOCLONAL PROTEIN, SERUM (BLOOD) MONOCLONAL PROTEIN, SERUM (BLOOD) Lab Routine Multiple myeloma in remission (HCC) Expected: 10/25/2024 (Approximate), Expires: 01/24/2025 [facility] Comment on above: Expected: 10/25/2024 (Approximate), Expi res: 01/24/2025 Start: 10-25-2024 End: 01-24-2025 PROTEIN ELECTROPHORESIS SERUM W/INTERP PROTEIN ELECTROPHORESIS SERUM W/INTERP Lab Routine Multiple myeloma in remission (HCC) Expected: 10/25/2024 (Approximate), Expires: 01/24/2025 [facility] Comment on above: Expected: 10/25/2024 (Approximate), Expi res: 01/24/2025 Start: 10-19-2024 End: 10-19-2024 Patient encounter procedure Neurology Comment on above: 6 month follow up 6 month follow up, l yrica 25 mg BID, numbness, neuropathy. Start: 09-06-2024 End: 12-06-2024 25-hydroxyvitamin D3 [Mass/volume] in Serum or Plasma VITAMIN D 25 HYDROXY Lab Routine Hypertensive kidney disease with stage 3b chronic kidney disease (HCC) Stage 3b chronic kidney disease (HCC) Secondary renal hyperparathyroidism (HCC) Anemia of renal disease Multiple myeloma not having achieved remission Expected: 09/06/2024, Expires: 12/06/2024 [facility] Comment on above: Expected: 09/06/2024, Expires: Start: 09-06-2024 End: 12-06-2024 CBC W Auto Differential panel - Blood COMPLETE BLOOD COUNT AND DIFFERENTIAL Lab Routine Hypertensive kidney disease with stage 3b chronic kidney disease (HCC) Stage 3b chronic kidney disease (HCC) Secondary renal hyperparathyroidism (HCC) Anemia of renal disease Multiple myeloma not having achieved remission Expected: 09/06/2024, Expires: 12/06/2024 [facility] Comment on above: Expected: 09/06/2024, Expires: Start: 09-06-2024 End: 12-06-2024 Cobalamin (Vitamin B12) [Mass/volume] in Serum or Plasma VITAMIN B12 Lab Routine Hypertensive kidney disease with stage 3b chronic kidney disease (HCC) Stage 3b chronic kidney disease (HCC) Secondary renal hyperparathyroidism (HCC) Anemia of renal disease Multiple myeloma not having achieved remission Expected: 09/06/2024, Expires: 12/06/2024 [facility] Comment on above: Expected: 09/06/2024, Expires: Start: 09-06-2024 End: 12-06-2024 Ferritin [Mass/volume] in Serum or Plasma FERRITIN Lab Routine Hypertensive kidney disease with stage 3b chronic kidney disease (HCC) Stage 3b chronic kidney disease (HCC) Secondary renal hyperparathyroidism (HCC) Anemia of renal disease Multiple myeloma not having achieved remission Expected: 09/06/2024, Expires: 12/06/2024 [facility] Comment on above: Expected: 09/06/2024, Expires: Start: 09-06-2024 End: 12-06-2024 Folate [Mass/volume] in Serum or Plasma FOLATE, SERUM Lab Routine Hypertensive kidney disease with stage 3b chronic kidney disease (HCC) Stage 3b chronic kidney disease (HCC) Secondary renal hyperparathyroidism (HCC) Anemia of renal disease Multiple myeloma not having achieved remission Expected: 09/06/2024, Expires: 12/06/2024 [facility] Comment on above: Expected: 09/06/2024, Expires: Start: 09-06-2024 End: 12-06-2024 Magnesium [Mass/volume] in Serum or Plasma MAGNESIUM Lab Routine Hypertensive kidney disease with stage 3b chronic kidney disease (HCC) Stage 3b chronic kidney disease (HCC) Secondary renal hyperparathyroidism (HCC) Anemia of renal disease Multiple myeloma not having achieved remission Expected: 09/06/2024, Expires: 12/06/2024 [facility] Comment on above: Expected: 09/06/2024, Expires: Start: 09-06-2024 End: 12-06-2024 Parathyrin.intact [Mass/volume] in Serum or Plasma PTH INTACT Lab Routine Hypertensive kidney disease with stage 3b chronic kidney disease (HCC) Stage 3b chronic kidney disease (HCC) Secondary renal hyperparathyroidism (HCC) Anemia of renal disease Multiple myeloma not having achieved remission Expected: 09/06/2024, Expires: 12/06/2024 [facility] Comment on above: Expected: 09/06/2024, Expires: Start: 09-06-2024 End: 12-06-2024 Renal function 2000 panel - Serum or Plasma RENAL FUNCTION PANEL Lab Routine Hypertensive kidney disease with stage 3b chronic kidney disease (HCC) Stage 3b chronic kidney disease (HCC) Secondary renal hyperparathyroidism (HCC) Anemia of renal disease Multiple myeloma not having achieved remission Expected: 09/06/2024, Expires: 12/06/2024 [facility] Work Phone: Comment on above: Expected: 09/06/2024, Expires: Start: 09-06-2024 End: 09-06-2024 Follow-up encounter 09/06/2024 10:[address] [facility] [address] [place] [address] Kane Maria MD [address] [place] [address] Return in 6 months follow up Kidney Medicine Comment on above: Return in 6 months follow up Start: 08-09-2024 Covid-19 Vaccine ( season) Covid-19 Vaccine () [facility] Start: 07-27-2024 End: 07-27-2024 Follow-up encounter Hematology/Oncolog y Comment on above: Follow up per wq Start: 07-21-2024 Advance Directive Discussion Advance Directive Discussion [facility] Start: 07-21-2024 Medicare Advantage Annual Wellness Visit Medicare Advantage Annual Wellness Visit [facility] Start: 07-20-2024 End: 07-20-2024 ambulatory 07/20/2024 10:00 AM EST Results Only [place] [facility] [address] [place] [address] Labs per wq [place] [facility] Comment on above: Labs per wq Start: 05-25-2024 End: 05-25-2024 Patient encounter procedure 05/25/2024 10:00 AM EST Appointment Radiology [address] [place] [address] Stage 3b chronic kidney disease (HCC) [N18.32] Radiology Comment on above: Stage 3b chronic kidney disease (HCC) [N 18.32] Start: 05-12-2024 End: 03-26-2025 CT Chest WO contrast CT CHEST WO IVCON Radiology Routine Lung nodules Expected: 05/12/2024, Expires: 03/26/2025 [facility] Work Phone: Comment on above: Expected: 05/12/2024, Expires: Start: 04-27-2024 End: 04-27-2024 Follow-up encounter 04/27/2024 2:00 PM EDT Visit (SP) Office Hematology/Oncology [address] [place] [address] Tristen Raphael MD [address] [place] [address] FOLLOW UP Hematology/Oncolog y Comment on above: FOLLOW UP Start: 04-20-2024 End: 04-20-2024 Patient encounter procedure 04/20/2024 11:20 AM EDT Appointment Cat Scan [address] [place] [address] CT CHEST WO IVCON Cat Scan Comment on above: CT CHEST WO IVCON Start: 04-20-2024 End: 04-20-2024 ambulatory 04/20/2024 11:00 AM EDT Results Only [facility] [address] [place] [address] LABS [facility] Comment on above: LABS Start: 03-21-2024 Covid-19 Vaccine ( season) Covid-19 Vaccine ( season) [facility] Start: 03-21-2024 Influenza vaccination Influenza Vaccine (#1) [facility] Start: 03-09-2024 End: 03-09-2024 Patient encounter procedure 03/09/2024 10:45 AM EDT Office Visit Neurology [address] [place] [address] Farrah Nelson PA-C [address] [place] [address] Follow up 5 months Neurology Comment on above: Follow up 5 months Start: 03-08-2024 End: 06-07-2024 25-hydroxyvitamin D3 [Mass/volume] in Serum or Plasma VITAMIN D 25 HYDROXY Lab Routine Stage 3b chronic kidney disease (HCC) Expected: 03/08/2024, Expires: 06/07/2024 [facility] Comment on above: Expected: 03/08/2024, Expires: 4 Start: 03-08-2024 End: 06-07-2024 Parathyrin.intact [Mass/volume] in Serum or Plasma PTH INTACT Lab Routine Stage 3b chronic kidney disease (HCC) Expected: 03/08/2024, Expires: 06/07/2024 [facility] Comment on above: Expected: 03/08/2024, Expires: Start: 03-08-2024 End: 06-07-2024 Protein/Creatinine [Mass Ratio] in Urine PROTEIN / CREATININE RATIO Lab Routine Stage 3b chronic kidney disease (HCC) Expected: 03/08/2024, Expires: 06/07/2024 [facility] Comment on above: Expected: 03/08/2024, Expires: Start: 03-08-2024 End: 03-08-2024 Patient encounter procedure Kidney Medicine Comment on above: Stage 3b chronic kidney disease (HCC) [N 18.32] Stage 3b chronic kid jeremiah disease (HCC) [N18.32]/ Patient aware of new location-[facility] Start: 02-25-2024 End: 02-25-2024 Follow-up encounter 02/25/2024 1:00 PM EDT Visit (SP) Office Hematology/Oncology [address] [place] [address] Tristen Raphael MD [address] [place] [address] FOLLOW UP Hematology/Oncolog y Comment on above: FOLLOW UP Start: 02-25-2024 End: 02-25-2024 ambulatory 02/25/2024 12:00 PM EDT Results Only [facility] [place] [address] [place] [address] LABS [facility] [address] Comment on above: LABS Start: 02-20-2024 End: 02-20-2024 Patient encounter procedure 02/20/2024 12:00 PM EDT Office Visit Kidney Medicine [address] [place] [address] Kane Maria MD [address] [place] [address] Cancer patient Kidney Medicine Comment on above: Cancer patient Start: 01-13-2024 End: 01-13-2024 ambulatory 01/13/2024 10:00 AM EDT Results Only [place] [facility] [address] [place] [address] LABS [facility] Comment on above: LABS Start: 12-16-2023 End: 12-16-2023 ambulatory [facility] Comment on above: LABS Start: 10-08-2023 Hepatitis B screening URINE ALBUMIN:CREATININE RATIO [facility] Start: 07-21-2023 Advance Directive Discussion Advance Directive Discussion [facility] Start: 07-21-2023 Behavioral Health Screening Behavioral Health Screening [facility] Start: 07-21-2023 Depression Assessment Depression Assessment [facility] Start: 07-16-2023 Covid-19 Vaccine () Covid-19 Vaccine () [facility] Start: 05-14-2023 End: 06-05-2024 Ct thorax w/o contrast material CT CHEST WO IVCON Radiology Routine Lung nodules Expected: 05/14/2023, Expires: 06/05/2024 [facility] Work Phone: Comment on above: Expected: 05/14/2023, Expires: Start: 05-07-2023 End: 08-06-2023 MONOCLONAL PROTEIN, SERUM (BLOOD) [facility] Work Phone: Comment on above: Expected: 05/07/2023, Expires: 4 Start: 05-07-2023 End: 08-06-2023 PROTEIN ELECTROPHORESIS SERUM W/INTERP [facility] Work Phone: Comment on above: Expected: 05/07/2023, Expires: Start: 04-09-2023 Hemoglobin A1c measurement HbA1C [facility] Start: 04-09-2023 Hemoglobin A1c/Hemoglobin.total in Blood HBA1C [facility] Start: 03-21-2023 Covid-19 Vaccine () Covid-19 Vaccine () [facility] Start: 03-21-2023 Influenza vaccination [facility] Start: 10-29-2022 End: 12-29-2022 CBC W Auto Differential panel - Blood CBC + DIFF Lab Routine Multiple myeloma in remission (HCC) Expected: 10/29/2022 (Approximate), Expires: 12/29/2022 [facility] Work Phone: Comment on above: Expected: 10/29/2022 (Approximate), Expi res: 12/29/2022 Start: 10-29-2022 End: 12-29-2022 Comprehensive metabolic 2000 panel - Serum or Plasma COMP METABOLIC PANEL Lab Routine Multiple myeloma in remission (HCC) Expected: 10/29/2022 (Approximate), Expires: 12/29/2022 [facility] Work Phone: Comment on above: Expected: 10/29/2022 (Approximate), Expi res: 12/29/2022 Start: 10-29-2022 End: 12-29-2022 MONOCLONAL PROTEIN, SERUM (BLOOD) MONOCLONAL PROTEIN, SERUM (BLOOD) Lab Routine Multiple myeloma in remission (HCC) Expected: 10/29/2022 (Approximate), Expires: 12/29/2022 [facility] Work Phone: Comment on above: Expected: 10/29/2022 (Approximate), Expi res: 12/29/2022 Start: 10-29-2022 End: 12-29-2022 PROTEIN ELECTROPHORESIS SERUM W/INTERP PROTEIN ELECTROPHORESIS SERUM W/INTERP Lab Routine Multiple myeloma in remission (HCC) Expected: 10/29/2022 (Approximate), Expires: 12/29/2022 [facility] Work Phone: Comment on above: Expected: 10/29/2022 (Approximate), Expi res: 12/29/2022 Start: 09-29-2022 End: 11-29-2022 CBC W Auto Differential panel - Blood CBC + DIFF Lab Routine Multiple myeloma in remission (HCC) Expected: 09/29/2022 (Approximate), Expires: 11/29/2022 [facility] Work Phone: Comment on above: Expected: 09/29/2022 (Approximate), Expi res: 11/29/2022 Start: 09-29-2022 End: 11-29-2022 Comprehensive metabolic 2000 panel - Serum or Plasma COMP METABOLIC PANEL Lab Routine Multiple myeloma in remission (HCC) Expected: 09/29/2022 (Approximate), Expires: 11/29/2022 [facility] Work Phone: Comment on above: Expected: 09/29/2022 (Approximate), Expi res: 11/29/2022 Start: 09-29-2022 End: 11-29-2022 MONOCLONAL PROTEIN, SERUM (BLOOD) MONOCLONAL PROTEIN, SERUM (BLOOD) Lab Routine Multiple myeloma in remission (HCC) Expected: 09/29/2022 (Approximate), Expires: 11/29/2022 [facility] Work Phone: Comment on above: Expected: 09/29/2022 (Approximate), Expi res: 11/29/2022 Start: 09-29-2022 End: 11-29-2022 PROTEIN ELECTROPHORESIS SERUM W/INTERP PROTEIN ELECTROPHORESIS SERUM W/INTERP Lab Routine Multiple myeloma in remission (HCC) Expected: 09/29/2022 (Approximate), Expires: 11/29/2022 [facility] Work Phone: Comment on above: Expected: 09/29/2022 (Approximate), Expi res: 11/29/2022 Start: 08-22-2022 COVID-19 VACCINE (7 - Pfizer risk series) COVID-19 VACCINE (7 - Pfizer risk series) [facility] Start: 07-21-2022 ADVANCE DIRECTIVE DISCUSSION ADVANCE DIRECTIVE DISCUSSION [facility] Start: 07-21-2022 DEPRESSION ASSESSMENT DEPRESSION ASSESSMENT [facility] Start: 05-08-2022 Hemoglobin A1c/Hemoglobin.total in Blood HBA1C [facility] Start: 03-21-2022 Influenza vaccination INFLUENZA (#1) [facility] Start: 02-08-2022 COVID-19 VACCINE (6 - Booster) COVID-19 VACCINE (6 - Booster) [facility] Start: 11-07-2021 End: 01-07-2022 CBC W Auto Differential panel - Blood CBC + DIFF Lab STAT Multiple myeloma, remission status unspecified (HCC) Expected: 11/07/2021, Expires: 01/07/2022 [facility] Work Phone: Comment on above: Expected: 11/07/2021, Expires: Start: 09-01-2021 COVID-19 VACCINE (5 - Booster) COVID-19 VACCINE (5 - Booster) [facility] Start: 07-21-2021 ADVANCE DIRECTIVE DISCUSSION ADVANCE DIRECTIVE DISCUSSION [facility] Start: 07-21-2021 DEPRESSION ASSESSMENT DEPRESSION ASSESSMENT [facility] Start: 04-19-2021 Debridement nail any method 1-5 DEBRIDEMENT NAIL 1-5 ([id number]) Start: 19-Apr-2021 Intent [employer] Start: 11-14-2020 Slings SLING ([id number]) : Envelope adult large Start: 14-Nov-2020 Intent [employer] Start: 04-13-2018 Patient Education [employer] Start: 12-19-2016 Patient Education IRRITABLE BOWEL Indication: Irritable bowel syndrome with diarrhea Start: 19-Dec-2016 Instruction Type: Patient Education [employer] Start: 04-15-2016 Mri spinal canal lumbar w/o contrast material MRI LUMBAR SPINE W/O CONTRAST ([id number]) Start: 15-Apr-2016 Intent [employer] Start: 04-12-2016 Basic metabolic panel calcium total [employer] Start: 04-12-2016 Mri spinal canal lumbar w/o & w/contr matrl MRI LUMBAR SPINE W/O & W CONTRAST for post surgery/mass/infection ([id number]) - IV Contrast per Protocol Start: 12-Apr-2016 Intent Comments: Lumbosacral spine [facility] [employer] [place]; [facility] [employer] [place] Comment on above: Lumbosacral spine Start: 04-12-2016 Patient Education HYPERTENSION Indication: Hypertension, benign Start: 12-Apr-2016 Instruction Type: Patient Education [facility] [employer] [place]; [facility] [employer] Start: 03-16-2012 Patient Education TINEA - RINGWORM Indication: TINEA CRURA (Renamed from Dermatophytosis of groin and perianal area) Start: 16-Mar-2012 Instruction Type: Patient Education [facility] [employer] [place]; [facility] [employer] Start: 03-15-2006 Urine microalbumin profile DTaP,Tdap,Td Vaccine (1 - Tdap) [facility] Start: 05-17-2004 Pneumococcal Vaccine: 65+ (2 - PCV) Pneumococcal Vaccine: 65+ (2 - PCV) [facility] Start: 05-17-2004 PNEUMOCOCCAL: 65+ (2 - PCV) PNEUMOCOCCAL: 65+ (2 - PCV) [facility] Start: 1998 Hepatitis B Vaccine (1 of 3 - Risk 3-dose series) Hepatitis B Vaccine (1 of 3 - Risk 3-dose series) [facility] Start: 1998 RSV Vaccine (1 - 1-dose 60+ series) RSV Vaccine (1 - 1-dose 60+ series) [facility] Start: 01-22-1988 SHINGRIX VACCINE (1 of 2) SHINGRIX VACCINE (1 of 2) [facility] Start: 1957 SHINGRIX VACCINE (1 of 2) SHINGRIX VACCINE (1 of 2) [facility] Start: 1957 Third diphtheria, tetanus and acellular pertussis (DTaP) vaccination DTaP,Tdap,and Td Vaccine (1 - Tdap) [facility] Start: 1957 Urine microalbumin profile [facility] Start: 01-22-1956 Anxiety Screening Anxiety Screening [facility] Start: 01-22-1956 Depression Screening Depression Screening [facility] Start: 01-22-1956 Hepatitis B surface antibody level LDL CHOLESTEROL [facility] Start: 01-22-1948 3 comp foot exam completed DIABETIC FOOT EXAM [facility] Start: 01-22-1948 Diabetic foot examination Diabetic Foot Exam [facility] Start: 01-22-1948 Glaucoma screening Dilated Retinal Exam [facility] Start: 01-22-1948 Hepatitis B screening URINE ALBUMIN:CREATININE RATIO [facility] Start: 01-22-1948 Hepatitis C antibody, confirmatory test DILATED RETINAL EXAM [facility] Start: 1943 Hemoglobin A1c/Hemoglobin.total in Blood HBA1C [facility] Start: 1941 Wellness Exam Wellness Exam [facility] End: 02-06-2023 CBC W Auto Differential panel - Blood CBC + DIFF Lab Routine Multiple myeloma in remission (HCC) Once per month for 12 Occurrences starting 02/06/2022 until 02/06/2023 [facility] Work Phone: Comment on above: Once per month for 12 Occurrences starti ng 02/06/2022 until 02/06/2023 End: 04-24-2023 CBC W Auto Differential panel - Blood CBC + DIFF Lab Routine Multiple myeloma in remission (HCC) Once per month for 12 Occurrences starting 04/24/2022 until 04/24/2023 [facility] Work Phone: Comment on above: Once per month for 12 Occurrences starti ng 04/24/2022 until 04/24/2023 End: 05-06-2024 CBC W Auto Differential panel - Blood CBC + DIFF Lab Routine Multiple myeloma in remission (HCC) Once per month for 12 Occurrences starting 05/07/2023 until 05/06/2024 [facility] Work Phone: Comment on above: Once per month for 12 Occurrences starti ng 05/07/2023 until 05/06/2024 End: 02-24-2025 CBC W Auto Differential panel - Blood COMPLETE BLOOD COUNT AND DIFFERENTIAL Lab Routine Multiple myeloma in remission (HCC) Every 2 months for 6 Occurrences starting 02/25/2024 until 02/24/2025 [facility] Comment on above: Every 2 months for 6 Occurrences startin g 02/25/2024 until 02/24/2025 End: 02-06-2023 Comprehensive metabolic 2000 panel - Serum or Plasma COMP METABOLIC PANEL Lab Routine Multiple myeloma in remission (HCC) Once per month for 12 Occurrences starting 02/06/2022 until 02/06/2023 [facility] Work Phone: Comment on above: Once per month for 12 Occurrences starti ng 02/06/2022 until 02/06/2023 End: 04-24-2023 Comprehensive metabolic 2000 panel - Serum or Plasma COMP METABOLIC PANEL Lab Routine Multiple myeloma in remission (HCC) Once per month for 12 Occurrences starting 04/24/2022 until 04/24/2023 [facility] Work Phone: Comment on above: Once per month for 12 Occurrences starti ng 04/24/2022 until 04/24/2023 End: 05-06-2024 Comprehensive metabolic 2000 panel - Serum or Plasma COMP METABOLIC PANEL Lab Routine Multiple myeloma in remission (HCC) Once per month for 12 Occurrences starting 05/07/2023 until 05/06/2024 [facility] Work Phone: Comment on above: Once per month for 12 Occurrences starti ng 05/07/2023 until 05/06/2024 End: 02-24-2025 Comprehensive metabolic 2000 panel - Serum or Plasma COMPREHENSIVE METABOLIC PANEL Lab Routine Multiple myeloma in remission (HCC) Every 2 months for 6 Occurrences starting 02/25/2024 until 02/24/2025 [facility] Comment on above: Every 2 months for 6 Occurrences startin g 02/25/2024 until 02/24/2025 CT Chest WO contrast CT CHEST WO IVCON Radiology Routine Lung nodules 04/20/2024 11:34 AM [facility] Work Phone: CT Hip - right WO contrast CT HIP WO IVCON RIGHT Radiology Routine 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) 12/16/2024 10:15 AM [facility] Work Phone: End: 05-21-2024 EMG(NEURO/NI) EMG(NEURO/NI) EMG Routine Neuropathy 1 Occurrences starting 05/21/2023 until 05/21/2024 [facility] Work Phone: Comment on above: 1 Occurrences starting 05/21/2023 until 05/21/2024 IMMUNOFIXATION SCREE N, SERUM IMMUNOFIXATION SCREEN, SERUM Lab Routine Multiple myeloma in remission (HCC) 02/06/2022 4:07 PM [facility] Work Phone: KAPPA/FLAHERTY,FREE,SER KAPPA/FLAHERTY,F REE,SER Lab Routine Multiple myeloma in remission (HCC) 02/06/2022 4:07 PM [facility] Work Phone: MONOCLONAL PROTEIN, SERUM (BLOOD) MONOCLONAL PROTEIN, SERUM (BLOOD) Lab Routine Multiple myeloma in remission (HCC) 02/06/2022 4:07 PM [facility] Work Phone: End: 02-06-2023 MONOCLONAL PROTEIN, SERUM (BLOOD) MONOCLONAL PROTEIN, SERUM (BLOOD) Lab Routine Multiple myeloma in remission (HCC) Once per month for 12 Occurrences starting 02/06/2022 until 02/06/2023 [facility] Work Phone: Comment on above: Once per month for 12 Occurrences starti ng 02/06/2022 until 02/06/2023 End: 04-24-2023 MONOCLONAL PROTEIN, SERUM (BLOOD) MONOCLONAL PROTEIN, SERUM (BLOOD) Lab Routine Multiple myeloma in remission (HCC) Once per month for 12 Occurrences starting 04/24/2022 until 04/24/2023 [facility] Work Phone: Comment on above: Once per month for 12 Occurrences starti ng 04/24/2022 until 04/24/2023 End: 05-06-2024 MONOCLONAL PROTEIN, SERUM (BLOOD) MONOCLONAL PROTEIN, SERUM (BLOOD) Lab Routine Multiple myeloma in remission (HCC) Once per month for 12 Occurrences starting 05/07/2023 until 05/06/2024 [facility] Work Phone: Comment on above: Once per month for 12 Occurrences starti ng 05/07/2023 until 05/06/2024 End: 02-24-2025 MONOCLONAL PROTEIN, SERUM (BLOOD) MONOCLONAL PROTEIN, SERUM (BLOOD) Lab Routine Multiple myeloma in remission (HCC) Every 2 months for 6 Occurrences starting 02/25/2024 until 02/24/2025 [facility] Comment on above: Every 2 months for 6 Occurrences startin g 02/25/2024 until 02/24/2025 End: 01-05-2026 MR Hip - right WO contrast MRI HIP WO IVCON RIGHT Radiology Routine Multiple myeloma in remission (HCC) 1 Occurrences starting 12/06/2024 until 01/05/2026 [facility] Comment on above: 1 Occurrences starting 12/06/2024 until 01/05/2026 End: 01-05-2026 MR Lumbar spine WO contrast MRI LUMBAR SPINE WO IVCON Radiology Routine Multiple myeloma in remission (HCC) 1 Occurrences starting 12/06/2024 until 01/05/2026 [facility] Work Phone: Comment on above: 1 Occurrences starting 12/06/2024 until 01/05/2026 PROTEIN ELECTROPHORE SIS SERUM (P) PROTEIN ELECTROPHORESIS SERUM (P) Lab Routine Multiple myeloma in remission (HCC) 02/06/2022 4:07 PM EDT [facility] Work Phone: PROTEIN ELECTROPHORE SIS SERUM W/INTERP PROTEIN ELECTROPHORESIS SERUM W/INTERP Lab Routine Multiple myeloma in remission (HCC) 02/06/2022 4:07 PM EDT [facility] Work Phone: End: 02-06-2023 PROTEIN ELECTROPHORESIS SERUM W/INTERP PROTEIN ELECTROPHORESIS SERUM W/INTERP Lab Routine Multiple myeloma in remission (HCC) Once per month for 12 Occurrences starting 02/06/2022 until 02/06/2023 [facility] Work Phone: Comment on above: Once per month for 12 Occurrences starti ng 02/06/2022 until 02/06/2023 End: 04-24-2023 PROTEIN ELECTROPHORESIS SERUM W/INTERP PROTEIN ELECTROPHORESIS SERUM W/INTERP Lab Routine Multiple myeloma in remission (HCC) Once per month for 12 Occurrences starting 04/24/2022 until 04/24/2023 [facility] Work Phone: Comment on above: Once per month for 12 Occurrences starti ng 04/24/2022 until 04/24/2023 End: 05-06-2024 PROTEIN ELECTROPHORESIS SERUM W/INTERP PROTEIN ELECTROPHORESIS SERUM W/INTERP Lab Routine Multiple myeloma in remission (HCC) Once per month for 12 Occurrences starting 05/07/2023 until 05/06/2024 [facility] Work Phone: Comment on above: Once per month for 12 Occurrences starti ng 05/07/2023 until 05/06/2024 Urine Culture Comprehensive Urine Culture Comprehensive Microbiology Routine Dysuria Ordered: 03/19/2025 [facility] Work Phone: Comment on above: Ordered: 03/19/2025 End: 04-07-2025 US Kidney - bilateral and Urinary bladder US KIDNEY/BLADDER Radiology Routine Stage 3b chronic kidney disease (HCC) 1 Occurrences starting 03/08/2024 until 04/07/2025 [facility] Work Phone: Comment on above: 1 Occurrences starting 03/08/2024 until 04/07/2025 US Kidney - bilatera l and Urinary bladder US KIDNEY/BLADDER Radiology Routine Stage 3b chronic kidney disease (HCC) 05/25/2024 10:07 AM EST [facility] Work Phone: [facility] Immunizations Immunization Date Immunization Notes Care Provider [facility] 04-23-2024 influenza virus vacc ine, unspecified formulation Tristen Raphael MD Work Phone: [facility] 04-20-2024 influenza, seasonal, injectable NE CASANOVA MD Work Phone: [facility] Comment on above: 05-05-2023 Influenza, quad (aII V4), adjv, 0.5 IM NE CASANOVA MD [facility] Comment on above: Site: Left DeltoidVI S Given: * Influenza (Flu) Vaccine (Inactivated or Recombinant) (02/23/21) 05-05-2023 influenza virus vacc ine, unspecified formulation NE CASANOVA MD Work [facility] Comment on above: Had immunization. 04-30-2021 COVID-Pfizer (30 MCG /0.3 ML) NE CASANOVA MD Work Phone: [facility] [place]. 04-04-2021 influenza virus vacc ine, unspecified formulation Rebeca Mann RN Work Phone: [facility] 08-28-2020 COVID-19 vaccine, ag e 12+ yr (PFIZER-BIONTECH - PURPLE TOP) Tristen Raphael MD Work Phone: [facility] 08-21-2020 COVID-Pfizer (30 MCG /0.3 ML) NE CASANOVA MD [facility] 08-11-2020 COVID-19 vaccine, ag e 12+ yr (PFIZER-BIONTECH - PURPLE TOP) Tristen Raphael MD Work Phone: [facility] 07-21-2020 COVID-19 vaccine, ag e 12+ yr (PFIZER-BIONTECH - PURPLE TOP) Tristen Raphael MD Work Phone: [facility] 05-03-2020 influenza, high-dose , quadrivalent vaccine (FLUZONE HIGH DOSE QUADRIVALENT) Tristen Raphael MD Work Phone: [facility] 04-24-2018 influenza virus vacc ine, unspecified formulation NE CASANOVA MD Work [facility]: [facility] 04-24-2018 influenza, injectabl e, quadrivalent, contains preservative NE CASANOVA MD Work [facility]: [facility] [place] Comment on above: Site: Left DeltoidVI S Given: * Influenza - Inactivated (02/24/15) 04-13-2018 pneumococcal conjuga te vaccine, 13 valent NE CASANOVA MD Work Phone: [facility] [place]; [facility] Comment on above: Discussed. 05-16-2017 influenza virus vacc ine, unspecified formulation NE CASANOVA MD Work Phone: [facility] [place]. 05-16-2017 influenza, injectabl e, quadrivalent, contains preservative Tristen Raphael MD Work Phone: [facility] Comment on above: Site: Deltoid (Left) VIS Given: * Influenza - Inactivated (02/24/15) 04-17-2015 influenza, injectabl e, quadrivalent, contains preservative NE CASANOVA MD Work Phone: [facility] [place]. 03-29-2013 influenza, seasonal, injectable Tristen Raphael MD Work Phone: [facility] 07-01-2012 influenza, seasonal, injectable Tristen Raphael MD Work Phone: [facility] 04-30-2012 influenza, seasonal, injectable Tristen Raphael MD Work Phone: [facility] Comment on above: Site: Deltoid (Left) VIS Given: * Inactivated Influenza Vaccine (02/27/2010) 04-30-2012 ADMINISTRATION OF INFLUENZA VIRUS VACCINE ([id number]) NE CASANOVA MD Work Phone: [facility] [place] 03-20-2011 influenza, seasonal, injectable Tristen Raphael MD Work Phone: [facility] [facility] 07-31[facility]2009 novel influenza-H1N1 -09, preservative-free, injectable Tristen Raphael MD Work Phone: [facility] 05-07-2007 influenza virus vacc ine, whole virus Tristen Raphael MD Work Phone: [facility] 03-14-2006 pneumococcal Conjuga te, unspecified formulation NE CASANOVA MD Work Phone: [facility]; [facility] 03-14-2006 pneumococcal polysaccharide vaccine, 23 valent NE CASANOVA MD Work Phone: [facility]; [facility] 03-14-2006 tetanus and diphther ia toxoids, adsorbed, preservative free, for adult use (2 Lf of tetanus toxoid and 2 Lf of diphtheria toxoid) NE CASANOVA MD [facility] Phone: [facility] [place]; [facility] 05-17-2003 pneumococcal polysaccharide vaccine, 23 valent Tristen Raphael MD Work Phone: [facility] influenza virus vacc ine, unspecified formulation NE CASANOVA MD Work Phone: [facility]. Comment on above: Had immunization. Payers Date Payer Category Payer Medicare HMO [employer] MEDICARE [id number] 2021 Medicare AETNA MEDICARE A ETNA MEDICARE PPO [id number] 2021-Present [phone] [address] [place] [address] [facility] [id number] 2021 Medicare (Managed Care) [place] [id number] 2021 Medicare [id number] 2019 Medicare [id number] 1940 Unknown [id number] 1940 Unknown [id number] 1940 Unknown [id number] Unknown [employer] MEDICARE Social History Date Type Detail Facility Start: 02-04-2020 End: 03-08-2024 Tobacco smoking status NHIS Never smoked tobacco [facility] Start: 02-04-2020 End: 03-08-2024 Tobacco use and exposure Smokeless tobacco non-user [facility] Start: 10-04-2021 End: 10-30-2022 Alcohol intake Ex-drinker (finding) [facility] Start: 1940 Sex Assigned At Male [facility] Start: 02-06-2021 End: 04-24-2022 Exposure to SARS-CoV-2 (event) Not sure [facility] Start: 01-29-2023 End: 02-19-2025 History of Social function [facility] Start: 01-29-2023 End: 02-19-2025 Tobacco use panel [facility] Start: 06-21-2012 End: 03-19-2025 Adult Depression Screening Assessment 0 [facility] Start: 02-05-2020 Gender identity Identifies as male gender (finding) [facility] Start: 02-05-2020 Sexual orientation Bisexual (finding ) [facility] Alcohol Use: Alcohol Use: ; N o Alcohol Use. [facility] [place]; [facility] Tobacco use: Tobacco use: ; N ever smoker. [facility] [place]; [facility] [place]; [facility] [place] Work Phone: Occasional alcoh ol use [facility] [place]; [facility] [place] Work Phone: Start: 03-09-2024 End: 03-23-2025 Alcoholic beverage intake Current drinker of alcohol (finding) [facility] Start: 03-08-2024 Alcohol Comment rare [facility] Start: 1940 Sex assigned at Not on file [facility] NEGATED: Highlighted rowStart: NINF History of tobacco use Passive smoker [facility] Medical Equipment Procedure Code Equipment Code Equipment Origin al Text Equipment Identifier Dates Screw Kenia 3 Tana nium Set Moises Spine - [id number] Start: 07-11-2020 Jorge Kenia 3 6mm Titanium 70mm Spinal Radiolucent - [id number] Start: 07-11-2020 Screw Kenia 3 Serr beena 6.5mm 45mm Bone Polyaxial Nonsterile Spine - [id number] Start: 07-11-2020 Screw Kenia 3 Serr beena 6.5mm 40mm Bone Polyaxial Nonsterile Spine - [id number] Start: 07-11-2020 Clinical Notes 07-13-2020 to 04-26-2025 Justin Grossman MD - 04/01/2025 4:10 PM Elijah Mosqueda - 04/01/2025 12:00 AM EDDoc Cc - 04/01/2025 12:00 AM EDTTelephone Encounter - Rebeca Mann RN - 03/29/2025 4:33 PM EDT Note Date & Type Note Facility 04-26-2025 Note [facility] 04-26-2025 Note [facility] 04-26-2025 Note [facility] 04-10-2025 Note HNO ID: [id number] Author: JUSTIN GROSSMAN MD Service: ? Author Type: Physician Type: Progress Notes Filed: 04/10/2025 16:02 Note Text: Please see inpt notes. Justin Grossman MD [facility] 04-07-2025 Note [facility] 04-06-2025 Note [facility] 04-05-2025 Note [facility] 04-04-2025 Note [facility] 04-03-2025 Note [facility] 04-02-2025 Note [facility] 04-02-2025 Note HNO ID: [id number] Author: NOTE, INTERFACE, ? Service: ? Author Type: ? Type: Progress Notes Filed: 04/04/2025 09:17 Note Text: Epic Scheduled Downtime: 04/02/2025 1:00:00 AM to 04/02/2025 2:06:36 AM [facility] 04-01-2025 History of Present illness Narrative Radiation Oncology - On Treatment Review (OTR) Note PATIENT NAME: Fidelina Nolan PATIENT DIAGNOSIS: Multiple Myeloma presenting with right femur pain AREA TREATED: right hip COURSE: palliative CURRENT DOSE: 800 cGy in 1 fx PLANNED DOSE: 800 cGy in 1 fx See inpt OTV Note Justin Grossman MD documented in this encounter [facility] 04-01-2025 Note [facility] 04-01-2025 Note [facility] 04-01-2025 Note [facility] 04-01-2025 Note [facility] 04-01-2025 History of Present illness Narrative FIDELINA NOLAN I [id number] 04/01/2025 [facility] Department of Radiation Oncology [facility] RADIATION ONCOLOGY SIMULATION NOTE DATE OF SIMULATION: 04/01/2025 MACHINE: CT Simulator DIAGNOSIS: Multiple Myeloma involving R acetabulum AREA:RT ACETABULUM PATIENT POSITION: Supine. CONTRAST: None PROTOCOL: None BLOCKS: Custom blocks are necessary to develop an optimal plan. FIXATION DEVICE: In order to achieve accurate and reproducible treatments, the patient is immobilized. PROCEDURE: A time-out was conducted and recorded by the therapist. Patient was simulated on the CT scanner for external beam radiation therapy. Treatment site was marked by the simulation therapist. ASSESSMENT/PLAN: Patient tolerated simulation procedure well. Treatments will be initiated after treatment planning. The patient will be scheduled for a verification simulation on the treatment machine to ensure proper set-up and field arrangement is correct prior to the first treatment of primary and any boost rocha if applicable. Electronically Signed Justin Grossman M.D. 52:43 PM documented in this encounter [facility] 04-01-2025 History of Present illness Narrative FIDELINA NOLAN I [id number] 04/01/2025 [facility] - Department of Radiation Oncology Treatment Planning Note For reasons stated in the consult note, Fidelina Nolan is a candidate for radiation therapy. Based on review and interpretation of the relevant diagnostic studies together with the exam findings, Fidelina Nolan was simulated on 04/01/2025 at which time the target volume and/or requisite rocha were delineated, as indicated in the simulation note, to be treated according to the prescription. After reviewing the treatment plan with dosimetry, the plan was approved to deliver the prescribed course of radiation to the target area to allow for the best isodose distribution, treating to the 97% isodose line with 10MV and 2 rocha. Custom MLC eas the treatment device used to shape/modify the beams. Special consideration to these and other structures was given in light of the potential for increased toxicities from re-treatment of a previously irradiated site. A completed summary of this plan dated 04/01/2025 incorporated herein by reference includes dose, beam arrangements, energy, blocking, isodose distribution, and/or ports. Electronically Signed Justin Grossman M.D. 52:44 PM documented in this encounter [facility] 04-01-2025 Note [facility] 04-01-2025 Note [facility] 03-31-2025 Note [facility] 03-31-2025 Note SARS-COV-2 (AGENT OF COVID-19) RNA: Not detected INFLUENZA A RNA: Not detected INFLUENZA B RNA: Not detected RESPIRATORY SYNCYTIAL VIRUS (RSV) RNA: Not detected [facility] Comment on above: Performed By: #### 9 [id number] ####[facility] [id number] [address] 03-31-2025 Note [facility] 03-31-2025 Note HNO ID: [id number] Author: CALLIE JUAREZ RN Service: Nursing Author Type: Registered Nurse Type: Nursing Progress Note Filed: 03/31/2025 06:13 Note Text: Pt declining q2 turns. Pt educated on pressure injury prevention. Pt continues to decline. [facility] 03-30-2025 Note [facility] 03-30-2025 Note [facility] 03-29-2025 Telephone encounter Note Spoke to patient's daughter via telephone. She is very frustrated that her father is in the waiting room and not being seen. She states he is in a lot of pain from sitting in the wheelchair. She is requesting patient be direct admitted. Advised her that we are unable to direct admit after 3:00 pm and that it is not safe to direct admit patient given his confusion and falls and will need to be evaluated by an ER provider prior to being admitted for any urgent needs. She asked if she should bring patient to the car and wait however advised against that in case he is missed when called to come back or his condition worsens. She stated that he was checked in at 2:00 pm and that it is before 3:00 pm when patient arrived, however RNCC advised that despite arriving prior to to 3:00 pm, the recommendation would be to proceed to the ER. Advised to speak to charge nurse if she had further complaints but that patients in the ER are seen based off acuity. She verbalized understanding. Rebeca Mann RN (Allie), BSN Specialty Care Registered Nurse Coordinator Multiple Myeloma and Amyloidosis Program [facility] Work Phone: 03-29-2025 Miscellaneous Notes Spoke to patient's daughter via telephone. She is very frustrated that her father is in the waiting room and not being seen. She states he is in a lot of pain from sitting in the wheelchair. She is requesting patient be direct admitted. Advised her that we are unable to direct admit after 3:00 pm and that it is not safe to direct admit patient given his confusion and falls and will need to be evaluated by an ER provider prior to being admitted for any urgent needs. She asked if she should bring patient to the car and wait however advised against that in case he is missed when called to come back or his condition worsens. She stated that he was checked in at 2:00 pm and that it is before 3:00 pm when patient arrived, however RNCC advised that despite arriving prior to to 3:00 pm, the recommendation would be to proceed to the ER. Advised to speak to charge nurse if she had further complaints but that patients in the ER are seen based off acuity. She verbalized understanding. Rebeca Mann RN (Allie), BSN Specialty Care Registered Nurse Coordinator Multiple Myeloma and Amyloidosis Program [facility] documented in this encounter [facility] 03-29-2025 Note HNO ID: [id number] Author: MANJULA HWANG RT(R) Service: ? Author Type: Technologist Type: Progress Notes Filed: 03/29/2025 16:26 Note Text: Unable to obtain xrays until patient is transferred to a cart. [facility] 03-28-2025 Telephone encounter Note Daughter called stating that patient fell on 03/12 (and was on the floor for 5 hours) and then fell again on 03/14. He refused to go to the emergency room to be assessed. Patient's ambulation is declining with imbalance and is dragging right leg. Appetite is poor to fair. He is oriented most of the time with periods of confusion noted. Patient is currently in [place] with daughter and instructed her to drive him to the emergency room to be assessed. Jasmina Arita RN [facility] Work Phone: 03-28-2025 Miscellaneous Notes Daughter called stating that patient fell on 03/12 (and was on the floor for 5 hours) and then fell again on 03/14. He refused to go to the emergency room to be assessed. Patient's ambulation is declining with imbalance and is dragging right leg. Appetite is poor to fair. He is oriented most of the time with periods of confusion noted. Patient is currently in [place] with daughter and instructed her to drive him to the emergency room to be assessed. Jasmina Arita RN documented in this encounter [facility] 03-26-2025 Note Encounter Department : [facility] Progress Notes by Fidelina Jean LPN at 03/26/2025 8:19 AM Author: RODRIGO Carreonervice: -Author Type: Licensed Nurse Filed: 03/26/2025 8:19 AMEncounter Date: 03/21/2025Status: Signed Triple Drum Operator: Fidelina Jean LPN (Licensed Nurse) 3 attempts at trying to reach patient with no success. Removing from inbasket. [facility] 03-25-2025 Telephone encounter Note In collaboration with Zully Rivera CNP can you please call patient's daughter Salome on Friday to check-in to see if he is tolerating olanzapine OK? Telephone call to Fidelina Nolan's daughter Salome with no answer, left voicemail regarding how he is tolerating the Olanzpine. Call back information given. Salome returned call and said he stated he started the Olanzapine 2 days ago and was not himself at all. She does not think it is the medication. He was weak and trying to sit on the commode and could not sit up. He was definitely not him self but this happened before. In the morning yesterday when they woke up he was not in his recliner they found him wondering around the house. She went on to say last night he got up again at 3 am with weakness in his legs and a bit belligerent. This morning and today he is better, not dizzy and no complaints. He still has weakness in his legs again but that is not new. Her sister and her continue to work with the for outside resources. Let her know it sounds like they are doing their best as caregivers and validated this is a difficult job along while ensuring safety fall prevention. She will continue giving the Olanzapine since today is doing so much better and eating. Salome expressed appreciation for the call and listening. Let her know she can call any time with any other questions or concerns. Madina Martínez RN March 25, 2025 11:00 AM [facility] 03-25-2025 Miscellaneous Notes In collaboration with Zully Rivera CNP can you please call patient's daughter Salome on Friday to check-in to see if he is tolerating olanzapine OK? Telephone call to Fidelina Nolan's daughter Salome with no answer, left voicemail regarding how he is tolerating the Olanzpine. Call back information given. Salome returned call and said he stated he started the Olanzapine 2 days ago and was not himself at all. She does not think it is the medication. He was weak and trying to sit on the commode and could not sit up. He was definitely not him self but this happened before. In the morning yesterday when they woke up he was not in his recliner they found him wondering around the house. She went on to say last night he got up again at 3 am with weakness in his legs and a bit belligerent. This morning and today he is better, not dizzy and no complaints. He still has weakness in his legs again but that is not new. Her sister and her continue to work with the for outside resources. Let her know it sounds like they are doing their best as caregivers and validated this is a difficult job along while ensuring safety fall prevention. She will continue giving the Olanzapine since today is doing so much better and eating. Salome expressed appreciation for the call and listening. Let her know she can call any time with any other questions or concerns. Madina Martínez RN March 25, 2025 11:00 AM documented in this encounter [facility] 03-24-2025 Note Encounter Department : [facility] Progress Notes by Fidelina Jean LPN at 03/24/2025 8:22 AM Author: RODRIGO Carreonervice: -Author Type: Licensed Nurse Filed: 03/24/2025 8:22 AMEncounter Date: 03/21/2025Status: Signed Triple Drum Operator: Fidelina Jean LPN (Licensed Nurse) LVM to return call to clinic. [facility] 03-23-2025 Note [facility] 03-23-2025 History of Present illness Narrative PALLIATIVE MEDICINE AT HOME INITIAL CONSULT SERVICE DATE: 03/23/2025 Referring Physician: Tristen Raphael [id number] [facility] [id number] Primary Physician: No primary care provider on file. IDENTIFICATION AND INTRODUCTION: Fidelina Nolan is a 85 year old male This visit took place Virtually; I have communicated my name and active licensure. The patient's identity and physical location were verified at the time of this visit. The patient or their legal cash application representative has been informed of the risks and benefits of -- and alternatives to -- treatment through a remote evaluation and consents to proceed with the evaluation remotely. The patient is being seen with daughter(s) Salome REASON FOR CONSULT: Introduction to services Subjective Fidelina Nolan is a 85 year old male with history of DM, HTN, hypothyroidism, OA, SCC scalp s/p removal, CKD3, DVT (on Xarelto), multiple myeloma (dx January 2020) currently on treatment with pomalyst per Dr. Raphael being seen today for initial palliative medicine consult for introduction to services, symptom assessment and overall support. Patient seen today virtually with daughter Salome present. He is able to engage in conversation pleasantly and give accurate accounts of his overall medical course and recent struggles including his passing in October and recent increased in weakness, fatigue, insomnia and appetite changes. At baseline, he lives home alone with family visiting often. However, he has experiencing a fall ~ 3 weeks ago in the bathroom followed by another fall a few weeks later. Currently, he has been staying at his daughter Salome's home in [place] until Friday to attempt to regain strength and have closer monitoring. Reports feeling heaviness in legs, missed Lyrica dose last night and this morning, working with oncology to have short-term Rx sent to [place] resume tonight. Otherwise, well controlled neuropathy and pain. Follows with neurology and pain management closely. He reports feeling fatigued and "so tired", he is having a hard time falling asleep and then once he is asleep he wakes up multiple times at night to urinate. He was recently checked for UTI and has upcoming appointment with urology. He sleeps in a recliner. He has tried melatonin in the past without help, recently started on mirtazapine which he did not tolerate well and reports no longer taking. Appetite is low, makes breakfast then family prepares rest of meals. Salome reports that sometimes the meals are untouched. He reports not feeling hungry or interested in food. Has lost ~ 20 pounds since his in October. He reports weakness, has not been exercising "like I should", tries to do "stand up- sit downs" and daughters are working on setting up home PT/OT and a caregiver in the home for when he returns. Patient became tired from sitting in chair for visit and laid down. Salome reports that patient also has baseline anxiety with ruminating thoughts, worsening since October. We discussed patient's prior medication trials for sleep/appetite. Reports mirtazapine made him feel groggy and he stopped taking. Discussed that he tried olanzapine in 2019 per EMR review with benefit but was stopped along with opioids and muscle relaxants due to confusion/delirium. Salome expresses that was a distressing time and she does not think the patient's confusion was related to olanzapine specifically, as his confusion and hallucinations [facility] at [facility] following discharge. We discussed trying a low-dose for short Rx with close monitoring and patient/family agreeable. SOCIAL HISTORY: SOCIAL HISTORY[1] 3 children - Salome Castillo and a son in [place] PAST MEDICAL HISTORY: PAST MEDICAL HISTORY Diagnosis Date Hypertension Hypothyroid PAST SURGICAL HISTORY: PAST SURGICAL HISTORY Procedure Laterality Date BACK SURGERY HX 07/11/2020 L3-5 CATARACT EXTRACTION HX Right 2013 PAST SURGICAL HISTORY OF 1990 spine surgery CURRENT MEDICATIONS: OLANZapine (ZYPREXA) 2.5 mg tablet Take 1 tablet by mouth daily at bedtime for 15 days. calcium-cholecalciferol, D3, (OSCAL+D 250) 250 mg-3.125 mcg (125 unit) per tablet Take 1 tablet by mouth two times a day. pomalidomide (POMALYST) 1 mg capsule TAKE 1 CAPSULE BY MOUTH 1 TIME A DAY FOR 21 DAYS ON THEN 7 DAYS OFF pregabalin (LYRICA) 25 mg capsule Take 1 capsule by mouth two times a day for 90 days. cholestyramine (QUESTRAN) 4 gram packet take ONE PACKET BY MOUTH THREE TIMES DAILY NEEDED mecobalamin, vitamin B12, 1,000 mcg ODT Dissolve 1 tablet under the tongue once daily. rivaroxaban (XARELTO) 20 mg tablet TAKE 1 TABLET BY MOUTH EVERY DAY WITH DINNER losartan (COZAAR) 50 mg tablet Take 50 mg by mouth once daily. acetaminophen (TYLENOL) 325 mg tablet Take 2 tablets by mouth every 6 hours as needed. cholecalciferol (VITAMIN D3) 1,000 unit tab tablet 1 tablet by ORAL/FEEDING TUBE route once daily. calcium carbonate (CALCIUM ANTACID) 500 mg chew Take 2 tablets by mouth twice daily. SYNTHROID 25 mcg tablet Take 25 mcg by mouth once daily. ALLERGIES: ALLERGIES Allergen Reactions Amoxicillin Unknown Arithromycin [Azith* Rash Sulfa (Sulfonamide * Unknown FAMILY HISTORY: FAMILY HISTORY Problem Relation Age of Onset Kidney Disease No Family History REVIEW OF SYSTEMS: Modified ESAS ([place] Symptom Assessment Scale): Information Provided By: Patient and Family member Pain: Mild Nausea: None Loss of Appetite: Severe Constipation: None Shortness of Breath: None Drowsiness: None Tiredness: Mild Depression: None Anxiety: Mild How you feel overall: Fair Objective PHYSICAL EXAMINATION: Virtual visit, no physical exam performed DATA: Diagnostic tests reviewed for today's visit: Most recent labs and imaging results. Creatinine Date Value Ref Range Status 03/02/2025 1.39 (H) 0.73 - 1.22 mg/dL Final CrCl cannot be calculated (Unknown ideal weight.). Last Wt 02/22/25 : 80.3 kg (177 lb 0.5 oz) 10/19/24 : 90.2 kg (198 lb 12.8 oz) 04/27/24 : 89.4 kg (197 lb 1.5 oz) 03/09/24 : 90.8 kg (200 lb 2.1 oz) 03/08/24 : 91.1 kg (200 lb 13.4 oz) Opioid Management: No Assessment & Plan (Z51.5) Palliative care by specialist (primary encounter diagnosis) Introduced the role and structure of Palliative Medicine for patients with advanced life-limiting illnesses as a means of providing optimal symptom management as well as assisting with complex decision making. Discussed Palliative Medicine at Home program does not replace the role of the PCP. Discussed refills for medications prescribed for symptom management need to be requested a 2-3 days in advance during weekday business hours. Instructed to use after hours/weekend call for urgent issues only. (C90.00) Multiple myeloma not having achieved remission Follows with Dr. Raphael - last visit 02/22/2025 Current treatment: Pomalyst monotherapy Per Dr. Raphael's last note on 02/22/2025: On pom monotherapy. More or less stable light chains, VT. Light chains from today with kappa up to 90 but ratio preserved. Will repeat in a week and if continues to increase, will stop pom and switch to bethany faspro monotherapy. (G89.3) Cancer related pain Hip pain resolved following XRT to hip Laminectomy for spine DJD Follows with pain management - injections to knee, lumbar spine with relief MRI hip and lumbar spine with marrow lesions due to multiple myeloma, CT hip with unchanged lytic lesions Encouraged continue follow-up with pain management (G62.9) Neuropathy Follows with Neurology Current regimen: Lyrica 25 mg twice daily Well managed on above regimen, continue following with Neurology - next appointment 04/20 (R63.0) Appetite impaired Patient reports decreased appetite since October when passed Approximately 20 pound weight loss since October Feeling uninterested in eating or preparing foods Encouraged small, frequent high protein-high calorie meals Consider nutrition consult if no improvement Interested in appetite stimulant, recently did not tolerate mirtazapine d/t grogginess and no longer taking - STOP Mirtazepine Past trial of olanzapine briefly during hospital stay in 2019, found to be helpful but was discontinued along with opioids and robaxin d/t concerns for confusion vs. hospital delirium. Of note, patient was also on dexamethasone at that time as well. Patient and family would like to try olanzapine again. Discussed starting at low dose, monitoring for effectiveness and side effects closely and to call if any signs of confusion START Olanzapine 2.5 mg PO daily at bedtime (Rx for 15 days sent to pharmacy in [place] where patient is staying); nursing to call for check-in (G47.00) Insomnia, unspecified type Most recently on mirtazapine [address] Raphael, patient reports stopping d/t intolerance/grogginess Melatonin has not worked in the past Has not tried trazodone in past, but do not recommend d/t risk of orthostatic hypotension Olanzapine as above likely to help with insomnia (F41.9) Anxiety Long-standing issues with situational anxiety per family Increasing racing thoughts at night Olanzapine likely to also help (R53.83) Fatigue, unspecified type (R53.1) Generalized weakness Increased falls at home - discussed safety alfredo given patient is on Eliquis Likely worsened by poor appetite, sleep Encouraged balance of rest and activity Working on setting home PT/OT which would be beneficial Serious Illness Conversation: Overall, patient reports feeling tired with gradual declining functional status since his in October. He is currently staying in [place] with his daughter Salome for the week to attempt to regain strength and nutrition. However, his goal is to return to his home in [place]. His daughter Anna is working on setting up PT/OT and a caregiver at home for safety alfredo overnight support. Patient would like ongoing support and serious illness conversation, but was feeling fatigued by the end of today's visit. Would appreciate social work support as well to identify community resources. Existence of Advance Directives: Yes, but NOT documented in medical record - Instructed patient and daughter to bring copy in to next appointment to be scanned into EMR Some elements copied from oncology note on 02/22/2025, the elements have been updated and all reflect current decision making from today, 03/23/2025. Next Visit: 4 Weeks via virtual visit Palliative Medicine Nurse to do telephonic follow-up: Yes, call Friday to check on olanzapine tolerance (call Salome) [employer] Services: Telephonic discussion and assessment for community resources (call Anna first, then Salome if unable to reach) Referral to Sales And Marketing Professional: No, not at this time Zully Rivera APRN.DUCT LAYER HELPER March 23, 2025 12:43 PM [1] Social History Tobacco Use Smoking status: Never Passive exposure: Never Smokeless tobacco: Never Vaping Use Vaping status: Never Used Substance Use Topics Alcohol use: Yes Comment: rare Drug use: Never documented in this encounter [facility] 03-23-2025 Note [facility] 03-22-2025 Telephone encounter Note Spoke to Anna who indicates the reasons for consult are introduction to services Family member present yes Confirmed virtual process yes soonest appt was accepted Visit confirmed for 03/23/25 Mila Fletcher Referring provider, if any (patient's can self-refer): Dr Tristen Raphael Primary diagnosis or reason being seen: Diagnosis C90.00 (ICD-10-CM) - Multiple myeloma, remission status unspecified (HCC) Has patient been seen by inpatient provider? No [facility] 03-22-2025 Miscellaneous Notes Spoke to Anna who indicates the reasons for consult are introduction to services Family member present yes Confirmed virtual process yes soonest appt was accepted Visit confirmed for 03/23/25 Mila Fletcher Referring provider, if any (patient's can self-refer): Dr Tristen Raphael Primary diagnosis or reason being seen: Diagnosis C90.00 (ICD-10-CM) - Multiple myeloma, remission status unspecified (HCC) Has patient been seen by inpatient provider? No documented in this encounter [facility] 03-21-2025 Note Encounter Department : [facility] Progress Notes by GUMARO Bower at 03/21/2025 8:04 AM Author: GUMARO BowerService: -Author Type: Nurse Practitioner Filed: 03/21/2025 8:04 AMEncounter Date: 03/21/2025Status: Signed Triple Drum Operator: GUMARO Bower (Nurse Practitioner) Urine culture is negative for infection. Follow-up with PCP or [facility] if no improvement or for worsening symptoms. [facility] 03-19-2025 History of Present illness Narrative Images from the original note were not included. [facility] SUBJECTIVE: TRIAGE CHIEF COMPLAINT: Chief Complaint Patient presents with Dysuria C/O Burning, Frequency and Urgency With Urination, incontinence x 1 week Other Requesting short script for lyrica, xarelto, levothyroxine, losartan Daughter wants to know If can not fill lyrica can it be cut in half HISTORY OF PRESENT ILLNESS: Fidelina Nolan is a 85 y.o. male who presents with having some increased frequency and urgency and increased incontinence for the past week. Patient reports he also is having some mild burning with urination. He denies any blood in his urine. He does have a history of multiple myeloma. He does get treated at the [facility]. [place]. He does report he also is on multiple medications that he is about to run out of. He will be about 5 days short. His family was asking for refills of Lyrica and Xarelto on levothyroxine and losartan. He denies any flank pain. He denies fevers or chills. No other complaints or concerns. REVIEW OF SYMPTOMS: Review of Systems Constitutional: Positive for fatigue. Negative for chills and fever. HENT: Negative. Respiratory: Positive for chest tightness. Negative for cough and shortness of breath. Cardiovascular: Negative for chest pain. Gastrointestinal: Negative for abdominal pain, nausea and vomiting. Genitourinary: Positive for dysuria, frequency and urgency. Negative for flank pain and hematuria. OBJECTIVE: PHYSICAL EXAM: ? Vital Signs: BP 105/71 (Ortho BP Site: Right Upper Arm, Ortho BP Position: Sitting, Ortho BP Cuff Size: Large Adult) Pulse (!) 53 Temp 97.5 F (36.4 C) (Skin) Ht 5' 10" (1.778 m) Wt 176 lb (79.8 kg) SpO2 99% BMI 25.25 kg/m LMP No LMP for male patient. Physical Exam Vitals and nursing note reviewed. Constitutional: General: He is not in acute distress. Appearance: Normal appearance. He is not ill-appearing or toxic-appearing. HENT: Head: Normocephalic and atraumatic. Cardiovascular: Rate and Rhythm: Normal rate and regular rhythm. Pulses: Normal pulses. Heart sounds: Normal heart sounds. No murmur heard. No gallop. Pulmonary: Effort: Pulmonary effort is normal. No respiratory distress. Breath sounds: Normal breath sounds. No wheezing. Abdominal: General: Abdomen is flat. There is no distension. Tenderness: There is no abdominal tenderness. There is no right CVA tenderness, left CVA tenderness or guarding. Neurological: Mental Status: He is alert. LAB/IMAGING RESULTS: Component Ref Range & Units (hover) 12:08 Bilirubin, UA Negative Blood, UA Negative Clarity, UA Clear Color, UA STRAW Ketones, UA Negative Leukocytes, UA Negative Nitrite, UA Negative pH, UA 5.5 Protein, UA Negative Spec Grav, UA 1.015 Glucose, UA Negative Urobilinogen, UA 0.2 ASSESSMENT & PLAN: FINAL IMPRESSION: Nursing notes and vitals reviewed. Pertinent Labs and Imaging studies reviewed where applicable. ICD-10-CM 1. Dysuria R30.0 POCT Auto Urinalysis without Microscopy phenazopyridine (PYRIDIUM) 200 mg tablet Urine Culture Comprehensive 2. Medication refill Z76.0 rivaroxaban (XARELTO) 20 mg tablet levothyroxine (SYNTHROID) 50 mcg tablet losartan (COZAAR) 50 mg tablet 3. Multiple myeloma, remission status unspecified (HCC) C90.00 4. Primary hypertension I10 5. Hypothyroidism, unspecified type E03.9 MEDICAL DECISION MAKING: Patient does report he has been having some increased urinary frequency that is causing him to wake up at night. Urinalysis does not show any signs for any infection. This is all negative. Due to his symptoms I did send his urine for culture. He was given Pyridium. Patient also is from the [facility] and is here for rehab. He needs 5 days refills of some of his medications. I did state that I would not refill the Lyrica as this is a controlled substance but did give him 5 days of his Xarelto and levothyroxine and losartan. He is to follow with the [facility] where he follows with for further management. He is [facility]. If he develops significant abdominal pain or significant uncontrolled fevers he is to go to the ER. Patient is stable and agreeable to plan. All medically related questions related to this visit are answered to the patient's satisfaction. The patient acknowledges and is amenable to the treatment plan and any follow-up care. Patient left in stable condition with a copy of the AVS. documented in this encounter [facility] 03-19-2025 Instructions Michael Llamas PA-C - 03/19/2025 12:15 PM EDT Care of a Urinary Tract Infection (UTI) A bladder infection (cystitis), or kidney infection (pyelonephritis), or prostate infection (prostatitis) will usually respond to antibiotics. These are medications that kill germs. Take all the medicine given to you until it is gone. You may feel better in a few days, but TAKE ALL MEDICINE or the infection may not respond and become more difficult to treat. Response can generally be expected in 7 to 10 days. HOME CARE INSTRUCTIONS Drink a lot of fluid, 3 to 4 quarts a day. Cranberry juice is especially recommended, in addition to large amounts of water. Avoid caffeine, tea and carbonated beverages (Coke , 7-Up , etc). They tend to irritate the bladder. Alcohol may irritate the prostate. Only take [id number]-oyszoaz or prescription medicines for pain, discomfort, or fever as directed by your caregiver TO PREVENT FURTHER INFECTIONS: Empty the bladder often. Avoid holding urine for long periods of time. After a bowel movement, women should cleanse from front to back. Use each tissue only once. Empty the bladder before and after sexual intercourse. If you develop back pain, fever, feel sick to your stomach (nausea), vomiting, or your problems (symptoms) are no better in 3 days, return to your caregiver. Return sooner if you are getting worse. SEEK IMMEDIATE MEDICAL CARE IF YOU: Develop severe back pain or lower abdominal pain. Develop chills and fever. Develop nausea or vomiting. Have continued burning or discomfort with urination. MAKE SURE YOU: Understand these instructions. Will watch your condition. Will get help right away if you are not doing well or get worse. documented in this encounter [facility] 03-19-2025 Note Encounter Department : [facility] Progress Notes by Michael Llamas PA-C at 03/19/2025 12:15 PM Author: BELL GreeneCService: -Author Type: Physician Healthcare Marketer Filed: 03/19/2025 1:24 PMEncounter Date: 03/19/2025Status: Signed Triple Drum Operator: Michael Llamas PA-C (Physician Healthcare Marketer) [facility] SUBJECTIVE: TRIAGE CHIEF COMPLAINT: Chief Complaint Patient presents with -Dysuria C/O Burning, Frequency and Urgency With Urination, incontinence x 1 week -Other Requesting short script for lyrica, xarelto, levothyroxine, losartan Daughter wants to know If can not fill lyrica can it be cut in half HISTORY OF PRESENT ILLNESS: Fidelina Nolan is a 85 y.o. male who presents with having some increased frequency and urgency and increased incontinence for the past week. Patient reports he also is having some mild burning with urination. He denies any blood in his urine. He does have a history of multiple myeloma. He does get treated at the [facility]. [place]. He does report he also is on multiple medications that he is about to run out of. He will be about 5 days short. His family was asking for refills of Lyrica and Xarelto on levothyroxine and losartan. He denies any flank pain. He denies fevers or chills. No other complaints or concerns. REVIEW OF SYMPTOMS: Review of Systems Constitutional: Positive for fatigue. Negative for chills and fever. HENT: Negative. Respiratory: Positive for chest tightness. Negative for cough and shortness of breath. Cardiovascular: Negative for chest pain. Gastrointestinal: Negative for abdominal pain, nausea and vomiting. Genitourinary: Positive for dysuria, frequency and urgency. Negative for flank pain and hematuria. OBJECTIVE: PHYSICAL EXAM: Vital Signs: BP 105/71 (Ortho BP Site: Right Upper Arm, Ortho BP Position: Sitting, Ortho BP Cuff Size: Large Adult) Pulse (!) 53 Temp 97.5 ?F (36.4 ?C) (Skin) Ht 5' 10" (1.778 m) Wt 176 lb (79.8 kg) SpO2 99% BMI 25.25 kg/m? LMP No LMP for male patient. Physical Exam Vitals and nursing note reviewed. Constitutional: General: He is not in acute distress. Appearance: Normal appearance. He is not ill-appearing or toxic-appearing. HENT: Head: Normocephalic and atraumatic. Cardiovascular: Rate and Rhythm: Normal rate and regular rhythm. Pulses: Normal pulses. Heart sounds: Normal heart sounds. No murmur heard. No gallop. Pulmonary: Effort: Pulmonary effort is normal. No respiratory distress. Breath sounds: Normal breath sounds. No wheezing. Abdominal: General: Abdomen is flat. There is no distension. Tenderness: There is no abdominal tenderness. There is no right CVA tenderness, left CVA tenderness or guarding. Neurological: Mental Status: He is alert. LAB/IMAGING RESULTS: Component Ref Range AND Units (hover) 12:08 Bilirubin, UA Negative Blood, UA Negative Clarity, UA Clear Color, UA STRAW Ketones, UA Negative Leukocytes, UA Negative Nitrite, UA Negative pH, UA 5.5 Protein, UA Negative Spec Grav, UA 1.015 Glucose, UA Negative Urobilinogen, UA 0.2 ASSESSMENT AND PLAN: FINAL IMPRESSION: Nursing notes and vitals reviewed. Pertinent Labs and Imaging studies reviewed where applicable. ICD-10-CM 1.Dysuria R30.0POCT Auto Urinalysis without Microscopy phenazopyridine (PYRIDIUM) 200 mg tablet Urine Culture Comprehensive 2.Medication refill Z76.0rivaroxaban (XARELTO) 20 mg tablet levothyroxine (SYNTHROID) 50 mcg tablet losartan (COZAAR) 50 mg tablet 3.Multiple myeloma, remission status unspecified (HCC) C90.00 4.Primary hypertension I10 5.Hypothyroidism, unspecified type E03.9 MEDICAL DECISION MAKING: Patient does report he has been having some increased urinary frequency that is causing him to wake up at night. Urinalysis does not show any signs for any infection. This is all negative. Due to his symptoms I did send his urine for culture. He was given Pyridium. Patient also is from the [facility] and is here for rehab. He needs 5 days refills of some of his medications. I did state that I would not refill the Lyrica as this is a controlled substance but did give him 5 days of his Xarelto and levothyroxine and losartan. He is to follow with the [facility] where he follows with for further management. He is follow-up [facility] as needed. If he develops significant abdominal pain or significant uncontrolled fevers he is to go to the ER. Patient is stable and agreeable to plan. All medically related questions related to this visit are answered to the patient's satisfaction. The patient acknowledges and is amenable to the treatment plan and any follow-up care. Patient left in stable condition with a copy of the AVS. [facility] 03-16-2025 Telephone encounter Note Daughter and stated the following that he's been taking the " 1/2 pill of the remeron and still not falling asleep until about 2am...and then he says he feels groggy ("foggy") some days. I honestly don't notice much different, BUT he fell on Friday. He fell in the bathroom @ 8am (forgot to put his watch back on...which notifies us of a fall)...I called him @ 11am...just checked 3 of the home cameras (not bathroom) - called him again about 45 minutes later and he was lying on the BR floor face down. Says he hit his head (though no pain there); i do know he's sore on his left side (not bad) and got a skin tear left arm. Said he wasn't unconscious BUT by the time i saw him on the camera - he had been on the floor at least 4 hours (cold concrete underneath).The med maybe bugging him a little, BUT he had been to a 1955 class reunion the day before (stressed at first, but then had a good time - I drove him) for 3 hours. His right leg from hip to toes still hurts him a bunch almost every late afternoon through evening...and he also said he was shaky the next morning (my son called 911 - he refused to be seen at the hospital; his BP was @ 118/70 and BS was 118)." Spoke with patient's daughter and pcp will order OT. We placed a palliative care consult to help with his symptoms. Instructed if patient falls, he needs to be seen at emergency room because he is on xarelto. Jasmina Arita RN [facility] Work Phone: 03-16-2025 Miscellaneous Notes Daughter and stated the following that he's been taking the " 1/2 pill of the remeron and still not falling asleep until about 2am...and then he says he feels groggy ("foggy") some days. I honestly don't notice much different, BUT he fell on Friday. He fell in the bathroom @ 8am (forgot to put his watch back on...which notifies us of a fall)...I called him @ 11am...just checked 3 of the home cameras (not bathroom) - called him again about 45 minutes later and he was lying on the BR floor face down. Says he hit his head (though no pain there); i do know he's sore on his left side (not bad) and got a skin tear left arm. Said he wasn't unconscious BUT by the time i saw him on the camera - he had been on the floor at least 4 hours (cold concrete underneath).The med maybe bugging him a little, BUT he had been to a 1955 class reunion the day before (stressed at first, but then had a good time - I drove him) for 3 hours. His right leg from hip to toes still hurts him a bunch almost every late afternoon through evening...and he also said he was shaky the next morning (my son called 911 - he refused to be seen at the hospital; his BP was @ 118/70 and BS was 118)." Spoke with patient's daughter and pcp will order OT. We placed a palliative care consult to help with his symptoms. Instructed if patient falls, he needs to be seen at emergency room because he is on xarelto. Jasmina Arita RN documented in this encounter [facility] 02-28-2025 Telephone encounter Note Patient's daughter called stating that father is drowsy since starting remerson 15mg. Asked them to split the pill in half (7.5 mg). Asked patient to repeat myeloma labs next week. Jasmina Arita RN [facility] 02-28-2025 Miscellaneous Notes Patient's daughter called stating that father is drowsy since starting remerson 15mg. Asked them to split the pill in half (7.5 mg). Asked patient to repeat myeloma labs next week. Jasmina Arita RN documented in this encounter [facility] 02-22-2025 Note [facility] 02-22-2025 Note [facility] 01-06-2025 History of Present illness Narrative Radiology Service Progress Note PATIENT NAME: Fidelina Nolan DATE OF SERVICE: January 06, 2025 TIME: 4:06 PM PATIENT IDENTITY VERIFICATION COMPLETED USING TWO (2) IDENTIFIERS: Name and Date of confirmed by patient verbally. FALL SCREENING: Has the patient had 2 falls in the last year or 1 fall with injury or currently using an Ambulatory Assistive Device (Walker, Cane, Wheelchair, Crutches, etc.)? No PATIENT GENDER DATA: Assigned male at PATIENT RELEVANT IMPLANT DATA REVIEWED: Not Applicable PATIENT PRESENTS WITH AN IMPLANTABLE OR ATTACHED SOIL CHEMIST: No RADIOLOGY DEPARTMENT: General X-ray: Exam(s) Completed: Lower Extremity X-Ray(s): Knee, AP / Lat / Tunne / Merchant Right PERIPHERAL IV DATA: Not applicable SIGNED BY: Yovanny Toribio January 06, 2025 4:06 PM documented in this encounter [facility] 01-06-2025 Note [facility] 12-16-2024 History of Present illness Narrative Radiology Service Progress Note PATIENT NAME: Fidelina Nolan DATE OF SERVICE: December 16, 2024 TIME: 10:15 AM PATIENT IDENTITY VERIFICATION COMPLETED USING TWO (2) IDENTIFIERS: Name and Date of confirmed by patient verbally. FALL SCREENING: Has the patient had 2 falls in the last year or 1 fall with injury or currently using an Ambulatory Assistive Device (Walker, Cane, Wheelchair, Crutches, etc.)? Yes, Patient High Risk for Falls What interventions were put in place to prevent falls during this visit? Yellow "Falls Risk Wristband" Applied, Instructed Patient to Call for Help if Needed, and Offered Assistance with Transfers/Clothing PATIENT GENDER DATA: Assigned male at PATIENT RELEVANT IMPLANT DATA REVIEWED: Yes PATIENT PRESENTS WITH AN IMPLANTABLE OR ATTACHED SOIL CHEMIST: No RADIOLOGY DEPARTMENT: CT; Exam(s) Completed: Lower extremity - RIGHT HIP PERIPHERAL IV DATA: Not applicable SIGNED BY: SHREYAS Shabazz)(CT) December 16, 2024 10:15 AM documented in this encounter [facility] 12-16-2024 Note HNO ID: [id number] Author: AYSHA OVIEDO RT(R) Service: ? Author Type: Technologist Type: Progress Notes Filed: 12/16/2024 10:16 Note Text: Radiology Service Progress Note PATIENT NAME: Fidelina Nolan DATE OF SERVICE: December 16, 2024 TIME: 10:15 AM PATIENT IDENTITY VERIFICATION COMPLETED USING TWO (2) IDENTIFIERS: Name and Date of confirmed by patient verbally. FALL SCREENING: Has the patient had 2 falls in the last year or 1 fall with injury or currently using an Ambulatory Assistive Device (Walker, Cane, Wheelchair, Crutches, etc.)? Yes, Patient High Risk for Falls What interventions were put in place to prevent falls during this visit? Yellow "Falls Risk Wristband" Applied, Instructed Patient to Call for Help if Needed, and Offered Assistance with Transfers/Clothing PATIENT GENDER DATA: Assigned male at PATIENT RELEVANT IMPLANT DATA REVIEWED: Yes PATIENT PRESENTS WITH AN IMPLANTABLE OR ATTACHED SOIL CHEMIST: No RADIOLOGY DEPARTMENT: CT; Exam(s) Completed: Lower extremity - RIGHT HIP PERIPHERAL IV DATA: Not applicable SIGNED BY: RT Harika(R)(CT) December 16, 2024 10:15 AM [facility] 12-15-2024 Telephone encounter Note Spoke with patient and daughter. Aware Dr Raphael ordered a CT of patients right hip. Daughter will call to schedule. Patient states when he is sitting down he has no pain, its only when he stands up and bears weight, but that using his rollator helps with the pain. Daughter asked about probiotics in [facility] message, RNCC suggested Culturelle or [employer]. SURINDER Munoz, RN Specialty Nurse Dietetic Tech [facility] 12-15-2024 Miscellaneous Notes Spoke with patient and daughter. Aware Dr Raphael ordered a CT of patients right hip. Daughter will call to schedule. Patient states when he is sitting down he has no pain, its only when he stands up and bears weight, but that using his rollator helps with the pain. Daughter asked about probiotics in [facility] message, RNCC suggested Culturelle or [employer]. SURINDER Munoz, RN Specialty Nurse Dietetic Tech documented in this encounter [facility] 12-15-2024 Telephone encounter Note Answered in telephone encounter. SURINDER Munoz, RN Specialty Nurse Dietetic Tech [facility] 12-15-2024 Miscellaneous Notes Answered in telephone encounter. SURINDER Munoz, RN Specialty Nurse Dietetic Tech documented in this encounter [facility] 12-10-2024 Note HNO ID: [id number] Author: CHA FAROOQ RT(R) Service: ? Author Type: Technologist Type: Progress Notes Filed: 12/10/2024 14:05 Note Text: Radiology Service Progress Note PATIENT NAME: Fidelina Nolan DATE OF SERVICE: December 10, 2024 TIME: 2:03 PM PATIENT IDENTITY VERIFICATION COMPLETED USING TWO (2) IDENTIFIERS: Name and Date of confirmed by patient verbally. FALL SCREENING: Has the patient had 2 falls in the last year or 1 fall with injury or currently using an Ambulatory Assistive Device (Walker, Cane, Wheelchair, Crutches, etc.)? Yes, Patient High Risk for Falls What interventions were put in place to prevent falls during this visit? Non-Skid Socks Used, Instructed Patient to Call for Help if Needed, Offered Assistance with Transfers/Clothing, Instructed Patient to Remain Seated (Not on Exam Table) Until Exam, and Increased Observations by Caregivers PATIENT GENDER DATA: Assigned male at PATIENT RELEVANT IMPLANT DATA REVIEWED: Not Applicable PATIENT PRESENTS WITH AN IMPLANTABLE OR ATTACHED SOIL CHEMIST: No RADIOLOGY DEPARTMENT: MR; Exam(s) Completed: Lower MSK: Hip, right Spine: Lumbar spine. Lavender Administered: No PERIPHERAL IV DATA: Not applicable SIGNED BY: RT Moose(R) December 10, 2024 2:03 PM [facility] 12-06-2024 Telephone encounter Note Care Coordination Triage Note [facility] [place] Situation: Patient reports Pain--Back or Spine Background: Patient with multiple myeloma on revlimid. Assessment: PAtient c/o pain in low back and right hip x 2 weeks. Patient is using rollater with ambulation. Patient sees Dr. Cedeño for pain mgmt. He takes lyrica twice daily. Recommendations: Per Dr. Raphael, patient directed to: Manage at home. Instructions provided. PAtient to take lyrica twice daily and tylenol as directed. Patient is ambulating with rollater walker. Patient to have a mri of right hip and lumbar spine done. Jasmina Arita RN December 06, 2024 12:39 PM [facility] Work Phone: 12-06-2024 Miscellaneous Notes Care Coordination Triage Note [facility] [place] Situation: Patient reports Pain--Back or Spine Background: Patient with multiple myeloma on revlimid. Assessment: PAtient c/o pain in low back and right hip x 2 weeks. Patient is using rollater with ambulation. Patient sees Dr. Cedeño for pain mgmt. He takes lyrica twice daily. Recommendations: Per Dr. Raphael, patient directed to: Manage at home. Instructions provided. PAtient to take lyrica twice daily and tylenol as directed. Patient is ambulating with rollater walker. Patient to have a mri of right hip and lumbar spine done. Jasmina Arita RN December 06, 2024 12:39 PM documented in this encounter [facility] 11-04-2024 Telephone encounter Note Spoke with patient's daughter and instructed him to drink more fluids. Creatinine-1.78. Myeloma labs are stable. Patient's is in the hospital. They will schedule for 3 months. Jasmina Arita RN [facility] Work Phone: 11-04-2024 Miscellaneous Notes Spoke with patient's daughter and instructed him to drink more fluids. Creatinine-1.78. Myeloma labs are stable. Patient's is in the hospital. They will schedule for 3 months. Jasmina Arita RN documented in this encounter [facility] 10-19-2024 Instructions Farrah Nelson PA-C - 10/19/2024 10:53 AM EDT Follow up with pain management for the right hip pain and let your primary care know as well. Continue with lyrica 25mg bid. Continue with exercise regularly Follow up in 6 months documented in this encounter [facility] 10-19-2024 Note [facility] 10-19-2024 History of Present illness Narrative Images from the original note were not included. [facility] Name: Fidelina Nolan Age: [age] year old Gender: male Primary Care Provider: No primary care provider on file. Assessment/Plan: 10/19/2024 - General Neurology, Farrah Nelson PA-C ASSESSMENT ASSESSMENT/PLAN: 1. Neuropathy - ICD9: 355.9, ICD10: G62.9 (primary diagnosis) 2. Numbness and tingling - ICD9: 782.0, ICD10: R20.0, R20.2 3. Degeneration of intervertebral disc of lumbar region, unspecified whether pain present - ICD9: 722.52, ICD10: M51.369 Patient with pain in the lower extremities below the legs, discussed likely multifactorial including lumbar disease as well as neuropathy. On Lyrica 25 mg twice daily, also sees pain management and gets injections in the lumbar spine which significantly help as well. Last 1 was in July and does feel maybe it is wearing off a bit. However, primary concern today is right hip pain noted below. No falls, no worsening symptoms that would need to be worked up at this time. Following with pain management regularly. Will continue with Lyrica 25 mg twice daily although did offer to increase this time but patient would like to see Dr. Woods first. 4. Pain in right hip - ICD9: 719.45, ICD10: M25.551 Ongoing over the last few weeks, notes that he has been diagnosed with bursitis in the past. Notes worsening with certain movements and positions, completely alleviates that he lays flat in his recliner. No injuries that he can think of but notes that he originally had pain in the right hip when he was found to have multiple myeloma. Does have appointment with oncology coming up as well as his primary care at the end of the week. 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 No falls, signs or symptoms of cord compression. Patient agreeable to treatment plan of care at this time, questions were answered. Patient to follow-up in 6 months. Farrah Nelson PA-C Encounter Diagnosis ICD-10-CM 1. Neuropathy G62.9 2. Numbness and tingling R20.0 R20.2 3. Degeneration of intervertebral disc of lumbar region, unspecified whether pain present M51.369 4. Pain in right hip M25.551 No follow-ups on file. Chart, labs,and relevant images reviewed. Chief Complaint:Patient presents with: Established Patient: Neuropathy, Numbness Chart Review: 03/09/24 ASSESSMENT/PLAN: 1. Neuropathy - ICD9: 355.9, ICD10: G62.9 (primary diagnosis) 2. Numbness and tingling - ICD9: 782.0, ICD10: R20.0, R20.2 3. Degeneration of lumbar intervertebral disc - ICD9: 722.52, ICD10: M51.36 4. Right leg weakness - ICD9: 729.89, ICD10: R29.898 Patient improved since last appointment, completed PT with improvement in strength and low back pain. NO new concerns at this time, compliant with Lyrica 25mg bid for neuropathy and back pain. Does note some mild discomfort in the legs, cramping. Notes that he does not drink much water throughout the day and was recently told by nephrology to increase water intake to at least 30 ounces a day. Takes alpha lipoic acid occasionally, not consistently. Has not been exercising at home since discharged from PT, encouraged him to continue this and he understands, encouraged hydration as well. NO LH or falls since last appt. NO new concerns at this time, will continue with current regimen. Patient and son agreeable to treatment plan of care, all questions were answered. Patient to follow up in 6 months. Farrah Nelson PA-C HPI: Last seen for neuropathy on 03/09/24, completed PT for low back. Continuing on lyrica 25mg bid. Patient presents for follow-up appointment. Noting some worsening pain in the lower extremities as well as some right hip pain which has been ongoing for the last few weeks. Has been followed with Dr. Woods at pain management for lumbar injections. Notes his last 1 was the beginning of the year and feels it is wearing off. Started to get more pain in the lower extremities but is also been experiencing some right hip pain. Was told it was possibly bursitis. No significant falls, does note history of multiple myeloma and notes his symptoms originally started with right hip pain. Has an appointment with his oncologist coming up. Also notes has an appoint with his primary care at the end of the week. No injuries to the right hip, but notes significant pain with lying on the side and moving the leg or getting up off of the chair. Taking the Lyrica daily, 25 mg twice daily and exercising regularly. No new concerns or symptoms today. No lightheadedness or dizziness. 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 pregabalin (LYRICA) 25 mg capsule Take 1 capsule by mouth two times a day. rivaroxaban (XARELTO) 20 mg tablet TAKE 1 TABLET BY MOUTH EVERY DAY WITH DINNER losartan (COZAAR) 50 mg tablet Take 50 mg by mouth once daily. acetaminophen (TYLENOL) 325 mg tablet Take 2 tablets by mouth every 6 hours as needed. cholecalciferol (VITAMIN D3) 1,000 unit tab tablet 1 tablet by ORAL/FEEDING TUBE route once daily. calcium carbonate (CALCIUM ANTACID) 500 mg chew Take 2 tablets by mouth twice daily. SYNTHROID 25 mcg tablet Take 25 mcg by mouth once daily. ALLERGIES Allergen Reactions Amoxicillin Unknown Arithromycin [Azith* Rash Sulfa (Sulfonamide * Unknown FAMILY HISTORY Problem Relation Age of Onset Kidney Disease No Family History PAST SURGICAL HISTORY Procedure Laterality Date BACK SURGERY HX 07/11/2020 L3-5 CATARACT EXTRACTION HX Right 2013 PAST SURGICAL HISTORY OF 1991 spine surgery Social Hx: @Alcohol Use: Not on file Tobacco Use: Low Risk (03/09/2024) Patient History Smoking Tobacco Use: Never Smokeless Tobacco Use: Never Passive Exposure: Never 10/19/24 1019 BP: 122/80 Pulse: 68 Neurologic Exam Cognitive and Language: Alert and answered questions appropriately. Language was fluent. Cranial Nerves: Extraocular movements were full with no diplopia or nystagmus. Facial strength was symmetric. Motor: Some mild decrease in strength with abduction and adduction of the right hip, otherwise full strength. Sensory: Decreased sensation in the lower extremities Reflexes: Decreased in lower extremities, 2/4 in the upper extremities. Coordination: Normal finger to nose and heel to sanchez testing bilaterally. Ambulating with walker Labs: Lab Results Component Value Date WBC 5.80 07/20/2024 HCT 40.9 07/20/2024 MCV 94.7 07/20/2024 PLT 142 (L) 07/20/2024 Lab Results Component Value Date HBA1C 5.5 05/25/2024 HBA1C 5.4 10/07/2022 HBA1C 5.4 11/06/2021 Cholesterol, Total Date Value Ref Range Status 05/25/2024 130 <200 mg/dL Final Comment: <200 mg/dL, Desirable 200-239 mg/dL, Borderline high >239 mg/dL, High HDL Cholesterol Date Value Ref Range Status 05/25/2024 46 >39 mg/dL Final Comment: 40-59 mg/dL, Acceptable >59 mg/dL, High: Negative risk factor for coronary heart disease <40 mg/dL, Low: Positive risk factor for coronary heart disease LDL Cholesterol Date Value Ref Range Status 05/25/2024 64 <100 mg/dL Final Comment: <100 mg/dL, Optimal 100-129 mg/dL, Near optimal/above optimal 130-159 mg/dL, Borderline high 160-189 mg/dL, High >189 mg/dL, Very high Secondary prevention optimal LDL Cholesterol levels are recommended to be < 70 mg/dL Triglyceride Date Value Ref Range Status 05/25/2024 98 <150 mg/dL Final Comment: <150 mg/dL, Normal 150-199 mg/dL, Borderline high 200-499 mg/dL, High >499 mg/dL, Very high Results for orders placed or performed in visit on 07/20/24 COMPLETE BLOOD COUNT AND DIFFERENTIAL Result Value Ref Range WBC 5.80 3.70 - 11.00 k/uL RBC 4.32 4.20 - 6.00 m/uL Hemoglobin 13.9 13.0 - 17.0 g/dL Hematocrit 40.9 39.0 - 51.0 % MCV 94.7 80.0 - 100.0 fL MCH 32.2 26.0 - 34.0 pg MCHC 34.0 30.5 - 36.0 g/dL RDW-CV 15.6 (H) 11.5 - 15.0 % Platelet Count 142 (L) 150 - 400 k/uL MPV 10.1 9.0 - 12.7 fL Neutrophils % 36.4 % Abs Neut 2.11 1.45 - 7.50 k/uL Lymphocytes % 46.4 % Abs Lymph 2.69 1.00 - 4.00 k/uL Monocytes % 11.7 % Abs Kern 0.68 <0.87 k/uL Eosinophils % 3.4 % Abs Eosin 0.20 <0.46 k/uL Basophils % 1.9 % Abs Baso 0.11 (H) <0.11 k/uL Immature Granulocytes % 0.2 % Abs Immature Gran <0.03 <0.10 k/uL NRBC 0.0 /100 WBC Absolute nRBC <0.01 <0.01 k/uL Diff Type Auto COMPREHENSIVE METABOLIC PANEL Result Value Ref Range Protein, Total 6.5 6.3 - 8.0 g/dL Albumin 3.8 (L) 3.9 - 4.9 g/dL Calcium, Total 8.9 8.5 - 10.2 mg/dL Bilirubin, Total 0.6 0.2 - 1.3 mg/dL Alkaline Phosphatase 61 38 - 113 U/L AST 15 14 - 40 U/L ALT 14 10 - 54 U/L Glucose 113 (H) 74 - 99 mg/dL BUN 21 9 - 24 mg/dL Creatinine 1.45 (H) 0.73 - 1.22 mg/dL Sodium 141 136 - 144 mmol/L Potassium 4.2 3.7 - 5.1 mmol/L Chloride 110 (H) 98 - 107 mmol/L CO2 21 (L) 22 - 30 mmol/L Anion Gap 10 8 - 15 mmol/L Estimated Glomerular Filtration Rate 47 (L) >=60 mL/min/1.73m IMMUNOGLOBULINS,IGG,IGA,IGM Result Value Ref Range IgG 1,250 700 - 1,600 mg/dL IgA 201 70 - 400 mg/dL IgM 38 (L) 40 - 230 mg/dL IMMUNOFIXATION SCREEN, SERUM Result Value Ref Range MPA Result No M protein is identified. No M protein is identified. Staff Review (MPA) Reviewed by Ariane Bautista M.D. KAPPA/[place],FREE,SER Result Value Ref Range [place] Free, Serum 57.7 (H) 3.3 - 19.4 mg/L Lambda Free, Serum 38.4 (H) 5.7 - 26.3 mg/L K/L Ratio, Serum 1.50 0.26 - 1.65 Radiology: MRI Head/Brain - Last 2 Impressions No resulted procedures found. and MRI Spine - Last 2 Impressions MRI LUMBAR SPINE WO IVCON Exam End: 07/06/2020 10:34 PM (Final result) Impression: IMPRESSION: 1. Multifocal T2/STIR hyperintense lesions, including involvement at T7, T9, T11, T12, L3, and L4, compatible with the patient's reported history of multiple myeloma. 2. Multilevel degenerative changes of the lumbar spine, most pronounced at L3-4 with severe spinal canal stenosis and severe bilateral foraminal stenosis. Severe foraminal stenosis is also present bilaterally at L4-5 and L5-S1. 3. No significant spinal canal or foraminal stenosis of the thoracic spine. Anatomic Thoracic/Lumbar Variant: None. L4-5 is considered the level of the iliac crest and assume there are 5 lumbar-type vertebrae. Night Stocker: [facility] Transcribe Date/Time: Jul 06 2020 10:54P Dictated by : ROXANA CORRAL MD This examination was interpreted and the report reviewed and electronically signed by: ROXANA CORRAL MD on Jul 06 2020 11:07PM EST MRI THORACIC SPINE WO IVCON Exam End: 07/06/2020 10:34 PM (Final result) Impression: IMPRESSION: 1. Multifocal T2/STIR hyperintense lesions, including involvement at T7, T9, T11, T12, L3, and L4, compatible with the patient's reported history of multiple myeloma. 2. Multilevel degenerative changes of the lumbar spine, most pronounced at L3-4 with severe spinal canal stenosis and severe bilateral foraminal stenosis. Severe foraminal stenosis is also present bilaterally at L4-5 and L5-S1. 3. No significant spinal canal or foraminal stenosis of the thoracic spine. Anatomic Thoracic/Lumbar Variant: None. L4-5 is considered the level of the iliac crest and assume there are 5 lumbar-type vertebrae. Night Stocker: [facility] Transcribe Date/Time: Jul 06 2020 10:54P Dictated by : ROXANA CORRAL MD This examination was interpreted and the report reviewed and electronically signed by: ROXANA CORRAL MD on Jul 06 2020 11:07PM EST This note was dictated using mSnap speech recognition software and may contain some errors that were a result of the program not accurately transcribing what was dictated, despite efforts to make corrections. Note that unless urgent, test and MRI results will be discussed at next follow-up visit. PROMIS (Patient-Reported Outcomes Measurement Information System) is a set of person-centered measures that evaluates and monitors physical, social, and emotional health. It can be used with the general population and with individuals living with chronic conditions. PROMIS 10: PHYSICAL AND MENTAL HEALTH: Global Physical Health T Score: 42.3 Global Physical Health Percentile: 22 Global Mental Health T Score: 48.3 Global Mental Health Percentile: 43 10/12/2024 PHQ-9 PHQ-2 Score 1 PHQ-9 Score 3 Medical Decision Making: Medical Decision Making Level: 1 - N/A I spent a total of 30 minutes on the date of the service which included preparing to see the patient, [id number] patient care, completing clinical documentation, obtaining and/or reviewing separately obtained history, performing a medically appropriate examination, counseling and educating the patient/family/caregiver, and ordering medications, tests, or procedures. documented in this encounter [facility] 09-06-2024 Note [facility] 09-06-2024 History of Present illness Narrative [facility] NEPH[facility]YPERTENSION SERVICE DATE: 09/06/2024 SERVICE TIME: 10:51 AM Part of this note was copied from prior progress notes CHIEF COMPLAINT: CKD HPI: Mr. 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 pregabalin (LYRICA) 25 mg capsule Take 1 capsule by mouth two times a day. rivaroxaban (XARELTO) 20 mg tablet TAKE 1 TABLET BY MOUTH EVERY DAY WITH DINNER losartan (COZAAR) 50 mg tablet Take 50 mg by mouth once daily. acetaminophen (TYLENOL) 325 mg tablet Take 2 tablets by mouth every 6 hours as needed. cholecalciferol (VITAMIN D3) 1,000 unit tab tablet 1 tablet by ORAL/FEEDING TUBE route once daily. calcium carbonate (CALCIUM ANTACID) 500 mg chew Take 2 tablets by mouth twice daily. (Patient taking differently: Take 500 mg by mouth once daily.) SYNTHROID 25 mcg tablet Take 25 mcg by mouth once daily. ALLERGIES: ALLERGIES Allergen Reactions Amoxicillin Unknown Arithromycin [Azith* Rash Sulfa (Sulfonamide * Unknown REVIEW OF SYSTEMS: Constitutional: No fever and No chills Cardiovascular: No edema Occasional lightheadedness Genitourinary: No complaints PHYSICAL EXAM: There were no vitals taken for this visit. @BPTRU@ Constitutional:No acute distress, Responsive, and Normal habitus Neck: No obvious neck masses Cardiovascular: Unable to assess as this is virtual visit Respiratory:Normal respiratory effort. Abdomen: Unable to assess as this is virtual visit Psychiatric: Alert and oriented x self, place, time, and setting Normal mood/affect DATA: Diagnostic tests reviewed for today's visit: No results for input(s): "INR", "APTT" in the last 168 hours. No results for input(s): "COLOR", "CLARITY", "UGLUC", "UBILI", "UKET", "SPGR", "UHB", "UPH", "UPROT", "NITRITES", "LEUKEST", "UWBC", "URBC" in the last 8784 hours. 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 His initial creatinine at the time of MM diagnosis was 1.7 mg/dl , it improved to ~1.3-1.4 mg/dl and then remained 1.5-1.7 mg/dl since 2021 Last creatinine was 1.45 mg/dL (06/2024) Urine A/C and urine P/C are negative Kidney US (04/2024): Rt kidney 10.4 cm and Lt kidney 9 cm. Lt kidney: Normal parenchymal echogenicity. Focal areas of parenchymal thinning. No hydronephrosis. His risk factors for CKD: Previous use of NSAIDs and long standing HTN (since he was 33 YO). He is not sure if he had DM in the past. 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 He also stopped NSAIDs He has poor fluid intake at baseline and intermittent diarrhea, might be contributing to fluctuations in eGFR. Multiple myeloma He is on Pomalidomide . Latest labs showed negative M protein and serum K/L:1.5 (07/20/2024). Velcade was stopped in the context of neuropathy. Electrolytes and acid base Stable Mild metabolic acidosis. Monitoring Secondary renal hyperparathyroidism Check iPTH and vit D with the next labs Anemia of renal disease /Multiple myeloma Hb is above goal HTN/Volume status Well controlled in the most recent office visits Vascular access evaluation We discussed before that with progressive drop in eGFR dialysis will be indicated, usually when eGFR is below 10-15 ml/min . We also discussed importance of deciding about dialysis if needed in the future (whether due to progression of CKD and TONJA on top of CKD in the settings of acute illness) PLAN: -No changes in the medications -Avoid NSAIDs and he was encouraged to stay well hydrated -Check B12 , folic acid, vit D and iPTH with the next set of labs -RTC in 6 months (can be VV) as [place] I spent 30 minutes minutes providing this service. The patient or patient's cash application representative consented to this telephone and video encounter. I reviewed all pertinent data. I have communicated my name and active licensure. The patient's identity and physical location were verified at the time of this visit. Either the patient or their legal cash application representative Kane Maria MD Staff Elevator Runner September 06, 2024 10:15 AM CC: PRIMARY CARE PHYSICIAN: No primary care provider on file. documented in this encounter [facility] 08-16-2024 Telephone encounter Note Patient left this medication behind as they traveled to [facility] ed. Pharmacy states they can fill emergency script. Patient's states the patient has been without the medication since Friday so is asking if it can be filled today. States they will be in [facility] for approx 8 weeks so the patient will need approx 90 packets. Claritza Pat August 16, 2024 Patient's 's phone number: [phone] [facility] 08-16-2024 Miscellaneous Notes Patient left this medication behind as they traveled to [facility] ed. Pharmacy states they can fill emergency script. Patient's states the patient has been without the medication since Friday so is asking if it can be filled today. States they will be in [facility] for approx 8 weeks so the patient will need approx 90 packets. Claritza Pat August 16, 2024 Patient's 's phone number: [phone] documented in this encounter [facility] 08-10-2024 Telephone encounter Note Script is pending signature from provider. Verbal cannot be called in for IMiD scripts. Rebeca Mann RN, BSN Specialty Care Registered Nurse Coordinator Multiple Myeloma and Amyloidosis Program [facility] Work Phone: 08-10-2024 Miscellaneous Notes Script is pending signature from provider. Verbal cannot be called in for IMiD scripts. Rebeca Mann RN, BSN Specialty Care Registered Nurse Coordinator Multiple Myeloma and Amyloidosis Program [facility] Fidelina Nolan('s) spouse Delores is calling Tristen Raphael MD today regarding Dietetic Tech - Other (Pomolyst ) Calling to ask the status of the rx and provide a number to call [facility] [employer] [phone] for a potential verbal order. Let the patient know that the order was submitted just waiting on the provider to sign off. Please advise. Patient has been identified by name and birthdate. Duration of symptoms: N/A Requesting response back: call on cell [phone] (home) [phone] (cell) Jess Loyd V August 10, 2024 documented in this encounter [facility] 08-10-2024 Telephone encounter Note Fidelina Nolan('s) spouse Delores is calling Tristen Raphael MD today regarding Dietetic Tech - Other (Pomolyst ) Calling to ask the status of the rx and provide a number to call [facility] [employer] [phone] for a potential verbal order. Let the patient know that the order was submitted just waiting on the provider to sign off. Please advise. Patient has been identified by name and birthdate. Duration of symptoms: N/A Requesting response back: call on cell [phone] (home) [phone] (cell) Jess Loyd V August 10, 2024 [facility] 07-27-2024 Note [facility] 07-27-2024 History of Present illness Narrative Images from the original note were not included. [facility] Plasma Cell Disorder Clinic PATIENT NAME: Fidelina Nolan This visit is a Audio Only Visit encounter which required patient-provider interaction for the medical decision making as documented below. Persons Present: patient and patient's spouse/significant other I have communicated my name and active licensure. The patient s identity and physical location were verified at the time of this visit. Fidelina Nolan or their legal cash application representative has been informed of the risks and benefits of -- and alternatives to -- treatment through a remote evaluation and consents to proceed with the evaluation remotely. Total Time Spent: 30 minutes on this telephone encounter CC: f/u standard risk t(11;14) myeloma. Baseline assessment on initial diagnosis date 01/2020 IMWG criteria, [place] Journal of Haematology 121: 749-57, 2003, update in: Orion et al. Leukemia 20: 1467-73, 2006 and at IMW meeting Tammi 2010 Symptomatic multiple myeloma [place] light chain Related Organ or Tissue Involvement (CRAB) or other Myeloma Defining Event (MDE): Renal insufficiency, eGFR <40 ml/min or serum creatinine >2mg/dL, result of biopsy confirmation (if relationship to MM in doubt): GFR 36, child care group leader 1.8, Bone disease: At least one lytic bone lesion on XR or CT if BMPC >=10%, at least 2 bone lesions on XR or CT if BMPC<10%, location of lytic lesion(s): sternum, left 6th rib, right acetabulum; mild hypercalcemia (Ca 10.4) Myeloma FISH panel: t(11;14), loss of 1p Cytogenetics: 46,XY LDH: 180 ISS stage: II (albumin < 3,5g/dL OR b2M 3,5-5,4mg/L) RISS stage: II Monoclonal proteins at diagnosis: Serum M-spike: 0 gm/dL, Involved serum free light chains: 1198 mg/L and Uninvolved serum free light chains: 8.3 mg/L Total immunoglobulins at diagnosis: IgG 850 mg/dL, IgA 78 mg/dL, IgM 29mg/dL Bone marrow plasma cell infiltration: 20% Systemic treatment and disease course -01/2020- 07/18/2020: VRd. Standard dosing, V 1.3, R 25 mg, dex 20 mg. R 25 mg given for 2 weeks with first cycle then decreased to 15 mg starting second cycle. Grade 3 thrombocytopenia with second cycle of V, day 15 held. BR: VGPR by light chain criteria after one cycle. Appearance of a low level IgG kappa M protein in Mar and a faint lambda in April, will watch. AEs: insomnia on days of dex, possibly worsening diarrhea with R. -07/2020: R 15 mg maintenance. BR: VGPR. AE: Diarrhea and urgency. -01/05/2021- present: Biochemical relapse. PVd. V 1 mg/m2 and d 20 mg days 1,8,15, P 2 mg daily for 21 days every 28 days. BR: Serologic CR. AE: grade 4 neutropenia due to pom, reduced to 1 mg after first cycle. Grade 1 neuropathy, reduced V to every other week in March and dose to 0.7 in June 2021. V stopped in December 2021 due to neuropathy although unlikely to be related. Dex reduced to 8 mg at same time. Local treatments (radiation, surgery, kyphoplasty) XRT: Right pelvis (acetabulum), 2000 cGy in [address] Cedeno. HISTORY OF THE PRESENT ILLNESS: Mr. Nolan continues to do well. He has had 3 falls since we last talked, seem mechanical. Going to [employer] for 2 months. PMH: OA HTN DM2 Hypothyroidism Skin cancer (unknown type) PSH Skin cancer removal CURRENT MEDICATIONS: Current Outpatient Medications Medication Sig pomalidomide (POMALYST) 1 mg capsule TAKE 1 CAPSULE BY MOUTH 1 TIME A DAY FOR 21 DAYS ON AND 7 DAYS OFF rivaroxaban (XARELTO) 20 mg tablet TAKE 1 TABLET BY MOUTH EVERY DAY WITH DINNER pregabalin (LYRICA) 25 mg capsule Take 1 capsule by mouth three times a day for 180 days. (Patient taking differently: Take 25 mg by mouth two times a day.) loratadine (CLARITIN) 10 mg tablet Take 10 mg by mouth once daily. (Patient not taking: Reported on 03/08/2024) diclofenac (VOLTAREN ARTHRITIS PAIN) 1 % topical gel Apply 4 g to affected area four times a day as needed. (Patient not taking: Reported on 03/08/2024) cholestyramine (QUESTRAN) 4 gram packet take ONE PACKET BY MOUTH THREE TIMES DAILY NEEDED mecobalamin, vitamin B12, 1,000 mcg ODT Dissolve 1 tablet under the tongue once daily. losartan (COZAAR) 50 mg tablet Take 50 mg by mouth once daily. acetaminophen (TYLENOL) 325 mg tablet Take 2 tablets by mouth every 6 hours as needed. cholecalciferol (VITAMIN D3) 1,000 unit tab tablet 1 tablet by ORAL/FEEDING TUBE route once daily. calcium carbonate (CALCIUM ANTACID) 500 mg chew Take 2 tablets by mouth twice daily. (Patient taking differently: Take 500 mg by mouth once daily.) SYNTHROID 25 mcg tablet Take 25 mcg by mouth once daily. No current facility-administered medications for this visit. ALLERGIES Allergen Reactions Amoxicillin Unknown Arithromycin [Azith* Rash Sulfa (Sulfonamide * Unknown FH: no FH of cancer Social History Tobacco Use Smoking status: No Substance Use Topics Alcohol use: No Drug use: No Retired. Lives in the [facility] with . REVIEW OF SYSTEMS Ten systems reviewed and negative except for those recorded in the HPI. 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 More or less stable light chains, [place]. Hematology: CBC with anemia, likely myeloma related, improved anemia. B12 was low normal, on B12 replacement. Iron panel looked okay. Thrombocytopenia due to pom. 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 Stable CKD stage 3, has seen renal, has DM and HTN. Encouraged hydration. Musculoskeletal: hip pain due to myeloma. S/p RT to hip, pain has resolved. Now s/p laminectomy for spine DJD. Bisphoshonates: has completed his course of ZA. Venous thromboembolism risk: rivaroxaban for soleal vein DVT and while on IMiDs. off aspirin. GI: Diarrhea: chronic issue, unpredictable pattern, may be exacerbated by R. Much improved while on pom, takes cholestyramine. Have asked him to only take it when having diarrhea, he's getting constipated from it. 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 Chest: Repeat CT in 04/2023 to f/u on prior nodules, stable. Repeat once in April 2024 stable, no further follow up. Next follow-up in October. Labs in August. The patient's questions were answered to satisfaction. (Elements copied from my note dated 04/27/24, have been reviewed and updated where appropriate, and all reflect current assessment and medical decision making during today's encounter, July 27, 2024) Tristen Raphael MD, FACP Tile Setter Apprenticechemical etching processor, [facility] Staff, Myeloma and Blood and Marrow Transplant Programs Hematology and Medical Oncology [address] [address] Pager: [phone] documented in this encounter [facility] 07-19-2024 Telephone encounter Note stated that patient this past Sat. evening, he had a fall in the bathroom. She had to call her neighbor to get him up and he has bruises on his right arm and one small cut on his back. Patient did not go to the emergency room and states feeling ok. Instructed that he needs to use the rollater to ambulate. Patient to have a caudal steroid injection. Instructed him to hold xarelto and pomalyst x 2 days. Jasmina Arita RN [facility] Work Phone: 07-19-2024 Miscellaneous Notes stated that patient this past Sat. evening, he had a fall in the bathroom. She had to call her neighbor to get him up and he has bruises on his right arm and one small cut on his back. Patient did not go to the emergency room and states feeling ok. Instructed that he needs to use the rollater to ambulate. Patient to have a caudal steroid injection. Instructed him to hold xarelto and pomalyst x 2 days. Jasmina Arita RN documented in this encounter [facility] 05-25-2024 Note [facility] 04-27-2024 History of Present illness Narrative Images from the original note were not included. [facility] Plasma Cell Disorder Clinic PATIENT NAME: Fidelina Nolan CC: f/u standard risk t(11;14) myeloma. Baseline assessment on initial diagnosis date 01/2020 IMWG criteria, [place] Journal of Haematology 121: 749-57, 2003, update in: Pravinie et al. Leukemia 20: 1467-73, 2006 and at IMW meeting Tammi 2010 Symptomatic multiple myeloma [place] light chain Related Organ or Tissue Involvement (CRAB) or other Myeloma Defining Event (MDE): Renal insufficiency, eGFR <40 ml/min or serum creatinine >2mg/dL, result of biopsy confirmation (if relationship to MM in doubt): GFR 36, child care group leader 1.8, Bone disease: At least one lytic bone lesion on XR or CT if BMPC >=10%, at least 2 bone lesions on XR or CT if BMPC<10%, location of lytic lesion(s): sternum, left 6th rib, right acetabulum; mild hypercalcemia (Ca 10.4) Myeloma FISH panel: t(11;14), loss of 1p Cytogenetics: 46,XY LDH: 180 ISS stage: II (albumin < 3,5g/dL OR b2M 3,5-5,4mg/L) RISS stage: II Monoclonal proteins at diagnosis: Serum M-spike: 0 gm/dL, Involved serum free light chains: 1198 mg/L and Uninvolved serum free light chains: 8.3 mg/L Total immunoglobulins at diagnosis: IgG 850 mg/dL, IgA 78 mg/dL, IgM 29mg/dL Bone marrow plasma cell infiltration: 20% Systemic treatment and disease course -01/2020- 07/18/2020: VRd. Standard dosing, V 1.3, R 25 mg, dex 20 mg. R 25 mg given for 2 weeks with first cycle then decreased to 15 mg starting second cycle. Grade 3 thrombocytopenia with second cycle of V, day 15 held. BR: VGPR by light chain criteria after one cycle. Appearance of a low level IgG kappa M protein in Mar and a faint lambda in April, will watch. AEs: insomnia on days of dex, possibly worsening diarrhea with R. -07/2020: R 15 mg maintenance. BR: VGPR. AE: Diarrhea and urgency. -01/05/2021- present: Biochemical relapse. PVd. V 1 mg/m2 and d 20 mg days 1,8,15, P 2 mg daily for 21 days every 28 days. BR: Serologic CR. AE: grade 4 neutropenia due to pom, reduced to 1 mg after first cycle. Grade 1 neuropathy, reduced V to every other week in March and dose to 0.7 in June 2021. V stopped in December 2021 due to neuropathy although unlikely to be related. Dex reduced to 8 mg at same time. Local treatments (radiation, surgery, kyphoplasty) XRT: Right pelvis (acetabulum), 2000 cGy in [address] Cedeno. HISTORY OF THE PRESENT ILLNESS: Mr. Nolan continues to do well. Taking pom as instructed. Got 5-6 injections in his back which have helped immensely. PMH: OA HTN DM2 Hypothyroidism Skin cancer (unknown type) PSH Skin cancer removal CURRENT MEDICATIONS: Current Outpatient Medications Medication Sig pomalidomide (POMALYST) 1 mg capsule TAKE 1 CAPSULE ONCE DAILY FOR 21 DAYS ON WITH 7 DAYS OFF rivaroxaban (XARELTO) 20 mg tablet TAKE 1 TABLET BY MOUTH EVERY DAY WITH DINNER pregabalin (LYRICA) 25 mg capsule Take 1 capsule by mouth three times a day for 180 days. (Patient taking differently: Take 25 mg by mouth two times a day.) loratadine (CLARITIN) 10 mg tablet Take 10 mg by mouth once daily. (Patient not taking: Reported on 03/08/2024) diclofenac (VOLTAREN ARTHRITIS PAIN) 1 % topical gel Apply 4 g to affected area four times a day as needed. (Patient not taking: Reported on 03/08/2024) cholestyramine (QUESTRAN) 4 gram packet take ONE PACKET BY MOUTH THREE TIMES DAILY NEEDED mecobalamin, vitamin B12, 1,000 mcg ODT Dissolve 1 tablet under the tongue once daily. losartan (COZAAR) 50 mg tablet Take 50 mg by mouth once daily. acetaminophen (TYLENOL) 325 mg tablet Take 2 tablets by mouth every 6 hours as needed. cholecalciferol (VITAMIN D3) 1,000 unit tab tablet 1 tablet by ORAL/FEEDING TUBE route once daily. calcium carbonate (CALCIUM ANTACID) 500 mg chew Take 2 tablets by mouth twice daily. (Patient taking differently: Take 500 mg by mouth once daily.) SYNTHROID 25 mcg tablet Take 25 mcg by mouth once daily. No current facility-administered medications for this visit. ALLERGIES Allergen Reactions Amoxicillin Unknown Arithromycin [Azith* Rash Sulfa (Sulfonamide * Unknown FH: no FH of cancer Social History Tobacco Use Smoking status: No Substance Use Topics Alcohol use: No Drug use: No Retired. Lives in the [facility] with . REVIEW OF SYSTEMS Ten systems reviewed and negative except for those recorded in the HPI. PHYSICAL EXAMINATION: BP 139/62 Pulse (!) 59 Temp 36.6 C (97.9 F) (Oral) Resp 18 Wt 89.4 kg (197 lb 1.5 oz) SpO2 98% BMI 28.28 kg/m General appearance: Well appearing, alert, in no acute distress, well-hydrated, well nourished. 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 More or less stable light chains, [place]. Hematology: CBC with anemia, likely myeloma related, improved anemia. B12 was low normal, on B12 replacement. Iron panel looked okay. Thrombocytopenia due to pom. 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 Stable CKD stage 3, has seen renal, has DM and HTN. Encouraged hydration. Musculoskeletal: hip pain due to myeloma. S/p RT to hip, pain has resolved. Now s/p laminectomy for spine DJD. Bisphoshonates: has completed his course of ZA. Venous thromboembolism risk: rivaroxaban for soleal vein DVT and while on IMiDs. off aspirin. GI: Diarrhea: chronic issue, unpredictable pattern, may be exacerbated by R. Much improved while on pom, takes cholestyramine. Have asked him to only take it when having diarrhea, he's getting constipated from it. control counseling: Performed, patient knows that two reliable methods of control are mandated while on IMiDs and also recommended for any other antimyeloma therapy except for single agent steroids and patient complies. 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 Chest: Repeat CT in 04/2023 to f/u on prior nodules, stable. Repeat once in April 2024 stable, no further follow up. Next follow-up in 3 months. Labs every other month. The patient's questions were answered to satisfaction. (Elements copied from my note dated 02/25/24, have been reviewed and updated where appropriate, and all reflect current assessment and medical decision making during today's encounter, April 27, 2024) I spent a total of 40 minutes on the date of the service which included preparing to see the patient, [id number] patient care, completing clinical documentation, obtaining and/or reviewing separately obtained history, performing a medically appropriate examination, counseling and educating the patient/family/caregiver, ordering medications, tests, or procedures and communicating results to the patient/family/caregiver. Tristen Raphael MD, FACP Tile Setter Apprenticechemical etching processor, [facility] Staff, Myeloma and Blood and Marrow Transplant Programs Hematology and Medical Oncology [address] [address] Pager: [phone] documented in this encounter [facility] 04-27-2024 Nurse Note Additional intake questions: Has the patient had fever, nausea, vomiting, diarrhea, constipation, fatigue for > 1 week? Yes, constipation Does the patient have a decreased appetite? No Does patient want to see a Director Of Music? No (yes to any of above refer patient to schedulers for dietitian appointment) ) Does patient have any new or increased numbness or tingling of extremities? yes increased in right hand Is patient interested in fertility information? No Does patient need any prescription refills? No Does patient have an advanced directive in place? yes at home Electronically Signed By: Narcisa Otoole LPN [facility] 04-27-2024 Nurse Note Additional intake questions: Has the patient had fever, nausea, vomiting, diarrhea, constipation, fatigue for > 1 week? Yes, constipation Does the patient have a decreased appetite? No Does patient want to see a Director Of Music? No (yes to any of above refer patient to schedulers for dietitian appointment) ) Does patient have any new or increased numbness or tingling of extremities? yes increased in right hand Is patient interested in fertility information? No Does patient need any prescription refills? No Does patient have an advanced directive in place? yes at home Electronically Signed By: Narcisa Otoole LPN documented in this encounter [facility] 04-20-2024 History of Present illness Narrative Radiology Service Progress Note PATIENT NAME: Fidelina Nolan DATE OF SERVICE: April 20, 2024 TIME: 2:53 PM PATIENT IDENTITY VERIFICATION COMPLETED USING TWO (2) IDENTIFIERS: Name and Date of confirmed by patient verbally. FALL SCREENING: Has the patient had 2 falls in the last year or 1 fall with injury or currently using an Ambulatory Assistive Device (Walker, Cane, Wheelchair, Crutches, etc.)? No PATIENT GENDER DATA: Male PATIENT RELEVANT IMPLANT DATA REVIEWED: Yes PATIENT PRESENTS WITH AN IMPLANTABLE OR ATTACHED SOIL CHEMIST: No RADIOLOGY DEPARTMENT: CT; Exam(s) Completed: Chest PERIPHERAL IV DATA: Not applicable SIGNED BY: RT Lisa(R) April 20, 2024 2:53 PM documented in this encounter [facility] 03-18-2024 History of Present illness Narrative Radiology Service Progress Note PATIENT NAME: Fidelina Nolan DATE OF SERVICE: March 18, 2024 TIME: 4:16 PM PATIENT IDENTITY VERIFICATION COMPLETED USING TWO (2) IDENTIFIERS: Name and Date of confirmed by patient verbally. FALL SCREENING: Has the patient had 2 falls in the last year or 1 fall with injury or currently using an Ambulatory Assistive Device (Walker, Cane, Wheelchair, Crutches, etc.)? No PATIENT GENDER DATA: Male PATIENT RELEVANT IMPLANT DATA REVIEWED: Not Applicable PATIENT PRESENTS WITH AN IMPLANTABLE OR ATTACHED SOIL CHEMIST: No RADIOLOGY DEPARTMENT: LUMBAR AP/LAT/BOTH OBLI/FLEX/EXT WT BEARING PERIPHERAL IV DATA: Not applicable SIGNED BY: RT Wayne(R) March 18, 2024 4:16 PM documented in this encounter [facility] 03-09-2024 Instructions Farrah Nelson PA-C - 03/09/2024 11:02 AM EDT Continue with exercises at home. Continue with lyrica 25mg twice daily Increase water intake to two bottles a day Follow up in 5-6 months documented in this encounter [facility] 03-09-2024 History of Present illness Narrative ESTABLISHED PATIENT VISIT Last visit: 10/07/23 ASSESSMENT/PLAN: 1. Neuropathy - ICD9: 355.9, ICD10: G62.9 (primary diagnosis) 2. Numbness and tingling - ICD9: 782.0, ICD10: R20.0, R20.2 3. Right leg weakness - ICD9: 729.89, ICD10: R29.898 4. Neuropathy due to chemotherapeutic drug (HCC) - ICD9: 357.6, E933.1, ICD10: G62.0, T45.1X5A 5. Degeneration of lumbar intervertebral disc - ICD9: 722.52, ICD10: M51.36 Patient's neuropathy stable from previous. EMG shows neuropathy throughout lower extremities as well as a likely mild bilateral L5 radiculopathy. Patient with chronic right leg weakness that is stable from previous. Did have 1 fall about a month ago where he tripped over his feet walking out of a restaurant with his walker, notes that his shoelaces were tied. No loss of conscious or head injury with this, no AMS. Notes some right hand weakness that is new over the last month, likely from the fall as he fell on his right side. Notes significant improvement of the last 2 weeks or so, but still has some pain in the thumb. Encouraged him to follow-up with his primary care regarding this issue for possible imaging. Did discuss EMG results at length including signs of neuropathy and radiculopathy. Patient tolerating Lyrica well, compliant with Lyrica 25 mg 3 times daily. Discussed alpha lipoic acid 600 mg taking daily to help prevent further worsening of neuropathy and patient is amenable. Additionally, due to the radiculopathy, right leg weakness did discuss physical therapy and patient is amenable to starting this again. Referral sent. Discussed other conservative therapies as well including water intake, increasing physical activity. Patient agrees and understands. Patient agreeable to treatment plan of care at this time, all questions were answered. Patient to follow-up in 5 to 6 months or sooner should any symptoms change or worsen. Farrah Nelson PA-C CHIEF COMPLAINT: follow up HISTORY OF PRESENT ILLNESS: Fidelina Nolan is a 84 year old male, There were no vitals taken for this visit. with a PMH significant for tn, hypothyroidism, lumbar fusion L3-5, and multiple myeloma with hx of radiation and chemotherapy . Last seen on 10/07/23 for neuropathy, doing well after lumbar surgery. Restarted PT, on lyrica and alpha lipoic acid. Patient doing well since last visit. Notes he completed PT for low back and feels much stronger, has not had a fall. Taking lyrica daily, 25mg bid without any issue. No new concerns. Not having any consistent LH but does report that he does not drink much water throughout the day. Was recently told by nephrology to drink more water. REVIEW OF SYSTEMS GENERAL:No weight loss, malaise or fevers. HEENT:Negative for frequent or significant headaches, No changes in hearing or vision, no nose bleeds or other nasal problems NECK:Negative for lumps, goiter, pain and significant neck swelling RESPIRATORY: Negative for cough, wheezing or shortness of breath. CARDIOVASCULAR: Negative for chest pain, leg swelling or palpitations. GASTROINTESTINAL: Negative for abdominal discomfort, blood in stools or black stools or change in bowel habits GENITOURINARY: No history of dysuria, frequency or incontinence MUSCULOSKELETAL: Negative for joint pain or swelling, back pain or muscle pain. NEUROLOGIC:Negative for focal numbness or weakness, headaches and dizziness or syncope, vision changes, speech/languag changes - EXCEPT that as per HPI above. SKIN:Negative for lesions, rash, and itching. PSYCHIATRIC: Negative for sleep disturbance, mood disorder and recent psychosocial stressors. HEMATOLOGIC/LYMPHATIC/IMMUNOLOGIC:N egative for prolonged bleeding, bruising easily or swollen nodes. ENDOCRINE: Negative for cold or heat intolerance, polyuria, polydipsia and goiter. The remainder of the ROS was reviewed and is negative. LAB/IMAGING: Those performed since patient's last visit have been reviewed. MEDICATIONS: pomalidomide (POMALYST) 1 mg capsule TAKE 1 CAPSULE ONCE DAILY FOR 21 DAYS ON WITH 7 DAYS OFF rivaroxaban (XARELTO) 20 mg tablet TAKE 1 TABLET BY MOUTH EVERY DAY WITH DINNER pregabalin (LYRICA) 25 mg capsule Take 1 capsule by mouth three times a day for 180 days. (Patient taking differently: Take 25 mg by mouth two times a day.) cholestyramine (QUESTRAN) 4 gram packet take ONE PACKET BY MOUTH THREE TIMES DAILY NEEDED mecobalamin, vitamin B12, 1,000 mcg ODT Dissolve 1 tablet under the tongue once daily. acetaminophen (TYLENOL) 325 mg tablet Take 2 tablets by mouth every 6 hours as needed. cholecalciferol (VITAMIN D3) 1,000 unit tab tablet 1 tablet by ORAL/FEEDING TUBE route once daily. calcium carbonate (CALCIUM ANTACID) 500 mg chew Take 2 tablets by mouth twice daily. (Patient taking differently: Take 500 mg by mouth once daily.) SYNTHROID 25 mcg tablet Take 25 mcg by mouth once daily. loratadine (CLARITIN) 10 mg tablet Take 10 mg by mouth once daily. (Patient not taking: Reported on 03/08/2024) diclofenac (VOLTAREN ARTHRITIS PAIN) 1 % topical gel Apply 4 g to affected area four times a day as needed. (Patient not taking: Reported on 03/08/2024) losartan (COZAAR) 50 mg tablet Take 50 mg by mouth once daily. HISTORIES PAST MEDICAL HISTORY No date: Hypertension No date: Hypothyroid FAMILY HISTORY Problem Relation Age of Onset Kidney Disease No Family History SOCIAL HISTORY Social History Tobacco Use Smoking status: Never Passive exposure: Never Smokeless tobacco: Never Vaping Use Vaping status: Never Used Substance Use Topics Alcohol use: Yes Comment: rare Drug use: Never PHYSICAL EXAMINATION BP 135/81 Pulse 68 Resp 16 Wt 90.8 kg (200 lb 2.1 oz) SpO2 99% BMI 28.72 kg/m GENERAL EXAM: General appearance: NAD, pleasant. HEENT: NC/AT, nasal congestion absent, no oral lesions, membranes moist. NECK: No masses, supple. Lungs: Breathing comfortably Extr: Moves all extremities without difficulty Skin: Cool to touch. No rash. NEUROLOGICAL EXAM: General: Awake, alert, oriented x3 (person,place,time), speech fluent, no dysarthria; comprehension, naming, repetition intact. Short and jail memory intact. CN: PERRL, fundi appear normal including no evidence of papilledema, EOMI and without nystagmus, VFF to confrontation, facial sensation and strength are normal and symmetric, hearing is intact to finger rub bilaterally, palate and tongue movements are intact and symmetric. SCM and trapezius strength normal. Motor: Normal tone, bulk and strength (5/5) bilaterally (throughout extremities x4). Reflexes: diminished achilles and patellar bilaterally. Coordination: FNF intact. No tremors. Sensation: Absent vibration to great toe and ankle, decreased at the knee bilaterally. Decreased up to the wrist at BUE. Gait: Ambulating with Rolator, guarded Assessment and Plan: ASSESSMENT/PLAN: 1. Neuropathy - ICD9: 355.9, ICD10: G62.9 (primary diagnosis) 2. Numbness and tingling - ICD9: 782.0, ICD10: R20.0, R20.2 3. Degeneration of lumbar intervertebral disc - ICD9: 722.52, ICD10: M51.36 4. Right leg weakness - ICD9: 729.89, ICD10: R29.898 Patient improved since last appointment, completed PT with improvement in strength and low back pain. NO new concerns at this time, compliant with Lyrica 25mg bid for neuropathy and back pain. Does note some mild discomfort in the legs, cramping. Notes that he does not drink much water throughout the day and was recently told by nephrology to increase water intake to at least 30 ounces a day. Takes alpha lipoic acid occasionally, not consistently. Has not been exercising at home since discharged from PT, encouraged him to continue this and he understands, encouraged hydration as well. NO LH or falls since last appt. NO new concerns at this time, will continue with current regimen. Patient and son agreeable to treatment plan of care, all questions were answered. Patient to follow up in 6 months. Farrah Nelson PA-C I spent a total of 30 minutes on the date of the service which included preparing to see the patient, [id number] patient care, completing clinical documentation, obtaining and/or reviewing separately obtained history, performing a medically appropriate examination, counseling and educating the patient/family/caregiver, and ordering medications, tests, or procedures. This document has been created with the use of voice recognition technology. It may contain inaccuracies: (e.g. misspellings, inaccurate syntax or word sense) that have escaped review. documented in this encounter [facility] 03-08-2024 Instructions Kane Maria MD - 03/08/2024 2:14 PM EDT You have chronic kidney disease at least since 2019, percentage (eGFR) around 40-50 percent , will continue to monitor that with blood work Less than 2000 mg of sodium per day Drink to thirst and make sure you drink at least 30-40 ounces of free water per day Avoid pain killers from the NSAID group (ibuprofen, naproxen, diclofenac, celecoxib, indomethacin, etc) Avoid imaging (CT scan) with IV contrast (dye) unless strictly needed Periodic blood work by hematology (I added some other blood work) Schedule kidney ultrasound Next visit can be virtual documented in this encounter [facility] 03-08-2024 History of Present illness Narrative [facility] SERVICE DATE: 03/08/2024 SERVICE TIME: 9:09 AM REASON FOR CONSULT: I am asked to see this patient in consultation for my opinion regarding CKD. My recommendations will be communicated by way of shared medical record, fax, or mail. REQUESTING PHYSICIAN: Tristen Raphael MD PRIMARY CARE PHYSICIAN: No primary care provider on file. CHIEF COMPLAINT: CKD HPI: Mr. Nolan is a 84 year old male who presents with PH of CKD stage 3, multiple myeloma, type 2 DM, HTN and hypothyroidism He was referred by for evaluation of CKD Multiple myeloma: He is on Pomalidomide . Latest labs showed negative M protein and serum K/L:1.32 (02/25/2024). Velcade was stopped in the context of neuropathy. Type 2 DM: Not on medications . Last HbA1c was 5.4 % (09/2022). He is not aware that he had DM in the past however it was listed in previous notes HTN: On losartan 50 mg once daily (started on 01/2023). He has long standing HTN, started since he was 33 YO Creatinine ~1.5-1.7 mg/dl 2460-5093. 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 He came today with his son, fairly active for his age, he has to use walker for balance issues /neuropathy PAST MEDICAL HISTORY: PAST MEDICAL HISTORY No date: Hypertension No date: Hypothyroid PAST SURGICAL HISTORY: PAST SURGICAL HISTORY 07/11/2020: BACK SURGERY HX Comment: L3-5 2013: CATARACT EXTRACTION HX; Right 1991: PAST SURGICAL HISTORY OF Comment: spine surgery FAMILY HISTORY: FAMILY HISTORY Problem Relation Age of Onset Kidney Disease No Family History SOCIAL HISTORY: Social History Tobacco Use Smoking status: Never Passive exposure: Never Smokeless tobacco: Never Vaping Use Vaping status: Never Used Substance Use Topics Alcohol use: Yes Comment: rare Drug use: Never MEDICATIONS: pomalidomide (POMALYST) 1 mg capsule TAKE 1 CAPSULE ONCE DAILY FOR 21 DAYS ON WITH 7 DAYS OFF rivaroxaban (XARELTO) 20 mg tablet TAKE 1 TABLET BY MOUTH EVERY DAY WITH DINNER pregabalin (LYRICA) 25 mg capsule Take 1 capsule by mouth three times a day for 180 days. (Patient taking differently: Take 25 mg by mouth two times a day.) cholestyramine (QUESTRAN) 4 gram packet take ONE PACKET BY MOUTH THREE TIMES DAILY NEEDED mecobalamin, vitamin B12, 1,000 mcg ODT Dissolve 1 tablet under the tongue once daily. losartan (COZAAR) 50 mg tablet Take 50 mg by mouth once daily. acetaminophen (TYLENOL) 325 mg tablet Take 2 tablets by mouth every 6 hours as needed. cholecalciferol (VITAMIN D3) 1,000 unit tab tablet 1 tablet by ORAL/FEEDING TUBE route once daily. calcium carbonate (CALCIUM ANTACID) 500 mg chew Take 2 tablets by mouth twice daily. (Patient taking differently: Take 500 mg by mouth once daily.) SYNTHROID 25 mcg tablet Take 25 mcg by mouth once daily. loratadine (CLARITIN) 10 mg tablet Take 10 mg by mouth once daily. (Patient not taking: Reported on 03/08/2024) diclofenac (VOLTAREN ARTHRITIS PAIN) 1 % topical gel Apply 4 g to affected area four times a day as needed. (Patient not taking: Reported on 03/08/2024) ALLERGIES: ALLERGIES Allergen Reactions Amoxicillin Unknown Arithromycin [Azith* Rash Sulfa (Sulfonamide * Unknown REVIEW OF SYSTEMS: PHYSICAL EXAM: Ht 177.8 cm (5' 10") Wt 91.1 kg (200 lb 13.4 oz) BMI 28.82 kg/m @BPTRU@ BP - standardized method Pulse 1 BP #1: 115/64 Pulse #1: 62 beats/min 2 BP #2 : 116/65 Pulse #2 : 62 beats/min 3 BP #3 : 116/66 Pulse #3 : 62 beats/min Average Average BP: 116/65 Average Pulse: 62 beats/min Orthostatic vitals Supine Sitting Standing Standing BP : 133/76 Standing pulse : 82 BP cuff location BP cuff location: Right upper arm BP cuff size BP cuff size: regular adult Comments for BP values First BP (right) First BP (Right): 135/70 First BP (left) First BP (Left): 130/64 Constitutional: No acute distress, Responsive, Normal habitus, and Well-nourished Eyes: Conjunctiva clear and Noscleral icterus Ear, Nose, and Throat: Hearing normal and Lips normal Neck:Trachea midline No jugular venous distension Cardiovascular:No peripheral edema Regular rate and ryhthm, normal S1 and S2, no murmurs, rubs, or gallops Respiratory: Normal respiratory effort. Lungs clear bilaterally. Abdomen: Soft and non tender Musculoskeletal: No clubbing or cyanosis of digits. and Normocephalic. Neurologic:CN II-XII intact and Normal sensation Psychiatric: Alert and oriented x self, place, time, and setting Normal mood/affect DATA: Diagnostic tests reviewed for today's visit: No results for input(s): "INR", "APTT" in the last 168 hours. No results for input(s): "COLOR", "CLARITY", "UGLUC", "UBILI", "UKET", "SPGR", "UHB", "UPH", "UPROT", "NITRITES", "LEUKEST", "UWBC", "URBC" in the last 8784 hours. Laboratory work up, imaging and other tests were reviewed Encounter diagnoses (I12.9, N18.32) Hypertensive kidney disease with stage 3b chronic kidney disease (HCC) (primary encounter diagnosis) (N18.32) Stage 3b chronic kidney disease (HCC) (C90.00) Multiple myeloma not having achieved remission (N18.9, D63.1) Anemia of renal disease (N25.81) Secondary renal hyperparathyroidism (HCC) ASSESSMENT: 84 year old male who presents with PH of CKD stage 3, multiple myeloma, type 2 DM, HTN and hypothyroidism He was referred by for evaluation of CKD CKD stage 3, non proteinuric Creatinine ~1.5-1.7 mg/dl 7240-6515. His initial creatinine at the time of MM diagnosis was 1.7 mg/dl , it improved to ~1.3-1.4 mg/dl and then remained 1.5-1.7 mg/dl since 2021 Urine A/C: Negative (09/2022) No previous renal imaging His risk factors for CKD: Previous use of NSAIDs and long standing HTN (since he was 33 YO). He is not sure if he had DM in the past. 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 He also stopped NSAIDs He has poor fluid intake at baseline and intermittent diarrhea, might be contributing to fluctuations in eGFR. Electrolytes and acid base Stable Mild metabolic acidosis. Monitoring Secondary renal hyperparathyroidism Will check iPTH and vit D with the next labs Anemia of renal disease /Multiple myeloma Hb is above goal HTN/Volume status Well controlled and his euvolemic on exam Vascular access evaluation We discussed that with progressive drop in eGFR dialysis will be indicated, usually when eGFR is below 10-15 ml/min . We discussed importance of deciding about dialysis if needed in the future (whether due to progression of CKD and TONJA on top of CKD in the settings of acute illness) PLAN: -No changes in the medications -Continue on losartan -Check urine P/C -Kidney US with pre and post void -Avoid NSAIDs and he was encouraged to stay well hydrated -RTC in 6 months (can be VV) as [place] 1[place]5 hrs away -Discussed in details with the patient and his son -CC:Dr.Khouri Pak spent 60 minutes in the visit which included preparing to see the patient, [id number] patient care, completing clinical documentation, obtaining and/or reviewing separately obtained history, performing a medically appropriate examination, counseling and educating the patient/family/caregiver, ordering medications, tests, or procedures Kane Maria MD Staff Elevator Runner March 08, 2024 1:25 PM CC: REFERRING PROVIDER: Tristen Raphael MD PRIMARY CARE PHYSICIAN: No primary care provider on file. documented in this encounter [facility] 02-25-2024 History of Present illness Narrative Images from the original note were not included. [facility] PATIENT NAME: Fidelina Nolan CC: f/u standard risk t(11;14) myeloma. Baseline assessment on initial diagnosis date 01/2020 IMWG criteria, [place] Journal of Haematology 121: 749-57, 2003, update in: Pravinie et al. Leukemia 20: 1467-73, 2006 and at IMW meeting Tammi 2010 Symptomatic multiple myeloma [place] light chain Related Organ or Tissue Involvement (CRAB) or other Myeloma Defining Event (MDE): Renal insufficiency, eGFR <40 ml/min or serum creatinine >2mg/dL, result of biopsy confirmation (if relationship to MM in doubt): GFR 36, child care group leader 1.8, Bone disease: At least one lytic bone lesion on XR or CT if BMPC >=10%, at least 2 bone lesions on XR or CT if BMPC<10%, location of lytic lesion(s): sternum, left 6th rib, right acetabulum; mild hypercalcemia (Ca 10.4) Myeloma FISH panel: t(11;14), loss of 1p Cytogenetics: 46,XY LDH: 180 ISS stage: II (albumin < 3,5g/dL OR b2M 3,5-5,4mg/L) RISS stage: II Monoclonal proteins at diagnosis: Serum M-spike: 0 gm/dL, Involved serum free light chains: 1198 mg/L and Uninvolved serum free light chains: 8.3 mg/L Total immunoglobulins at diagnosis: IgG 850 mg/dL, IgA 78 mg/dL, IgM 29mg/dL Bone marrow plasma cell infiltration: 20% Systemic treatment and disease course -01/2020- 07/18/2020: VRd. Standard dosing, V 1.3, R 25 mg, dex 20 mg. R 25 mg given for 2 weeks with first cycle then decreased to 15 mg starting second cycle. Grade 3 thrombocytopenia with second cycle of V, day 15 held. BR: VGPR by light chain criteria after one cycle. Appearance of a low level IgG kappa M protein in Mar and a faint lambda in April, will watch. AEs: insomnia on days of dex, possibly worsening diarrhea with R. -07/2020: R 15 mg maintenance. BR: VGPR. AE: Diarrhea and urgency. -01/05/2021- present: Biochemical relapse. PVd. V 1 mg/m2 and d 20 mg days 1,8,15, P 2 mg daily for 21 days every 28 days. BR: Serologic CR. AE: grade 4 neutropenia due to pom, reduced to 1 mg after first cycle. Grade 1 neuropathy, reduced V to every other week in March and dose to 0.7 in June 2021. V stopped in December 2021 due to neuropathy although unlikely to be related. Dex reduced to 8 mg at same time. Local treatments (radiation, surgery, kyphoplasty) XRT: Right pelvis (acetabulum), 2000 cGy in [address] Cedeno. HISTORY OF THE PRESENT ILLNESS: Mr. Nolan continues to do well. Taking pom. Taking questran more than recommended, goes 5 days without BMs at times. Not hydrating enough. PMH: OA HTN DM2 Hypothyroidism Skin cancer (unknown type) PSH Skin cancer removal CURRENT MEDICATIONS: Current Outpatient Medications Medication Sig pomalidomide (POMALYST) 1 mg capsule TAKE 1 CAPSULE ONCE DAILY FOR 21 DAYS ON WITH 7 DAYS OFF rivaroxaban (XARELTO) 20 mg tablet TAKE 1 TABLET BY MOUTH EVERY DAY WITH DINNER pregabalin (LYRICA) 25 mg capsule Take 1 capsule by mouth three times a day for 180 days. loratadine (CLARITIN) 10 mg tablet Take 10 mg by mouth once daily. diclofenac (VOLTAREN ARTHRITIS PAIN) 1 % topical gel Apply 4 g to affected area four times a day as needed. cholestyramine (QUESTRAN) 4 gram packet take ONE PACKET BY MOUTH THREE TIMES DAILY NEEDED mecobalamin, vitamin B12, 1,000 mcg ODT Dissolve 1 tablet under the tongue once daily. losartan (COZAAR) 50 mg tablet Take 50 mg by mouth once daily. acetaminophen (TYLENOL) 325 mg tablet Take 2 tablets by mouth every 6 hours as needed. cholecalciferol (VITAMIN D3) 1,000 unit tab tablet 1 tablet by ORAL/FEEDING TUBE route once daily. calcium carbonate (CALCIUM ANTACID) 500 mg chew Take 2 tablets by mouth twice daily. SYNTHROID 25 mcg tablet Take 25 mcg by mouth once daily. No current facility-administered medications for this visit. ALLERGIES Allergen Reactions Amoxicillin Unknown Arithromycin [Azith* Rash Sulfa (Sulfonamide * Unknown FH: no FH of cancer Social History Tobacco Use Smoking status: No Substance Use Topics Alcohol use: No Drug use: No Retired. Lives in the [place] area with . REVIEW OF SYSTEMS Ten systems reviewed and negative except for those recorded in the HPI. PHYSICAL EXAMINATION: BP 143/52 Pulse (!) 59 Temp 36.5 C (97.7 F) (Oral) Resp 18 Wt 94.5 kg (208 lb 5.4 oz) SpO2 100% BMI 29.07 kg/m General appearance: Well appearing, alert, in no acute distress, well-hydrated, well nourished. 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 More or less stable light chains, [place]. Hematology: CBC with anemia, likely myeloma related, improved anemia. B12 was low normal, on B12 replacement. Iron panel looked okay. Thrombocytopenia due to pom. 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 Stable CKD stage 3, seeing renal this month, has DM and HTN. Infectious disease: Musculoskeletal: hip pain due to myeloma. S/p RT to hip, pain has resolved. Now s/p laminectomy for spine DJD. Bisphoshonates: has completed his course of ZA. Venous thromboembolism risk: rivaroxaban for soleal vein DVT and while on IMiDs. off aspirin. GI: Diarrhea: chronic issue, unpredictable pattern, may be exacerbated by R. Much improved while on pom, takes cholestyramine. Have asked him to only take it when having diarrhea, he's getting constipated from it. control counseling: Performed, patient knows that two reliable methods of control are mandated while on IMiDs and also recommended for any other antimyeloma therapy except for single agent steroids and patient complies. 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 Chest: Repeat CT in 04/2023 to f/u on prior nodules, stable. Repeat once in April 2024. Next follow-up in 3 months. Labs every other month. The patient's questions were answered to satisfaction. (Elements copied from my note dated 11/12/23, have been reviewed and updated where appropriate, and all reflect current assessment and medical decision making during today's encounter, February 25, 2024) I spent a total of 40 minutes on the date of the service which included preparing to see the patient, [id number] patient care, completing clinical documentation, obtaining and/or reviewing separately obtained history, performing a medically appropriate examination, counseling and educating the patient/family/caregiver, ordering medications, tests, or procedures and communicating results to the patient/family/caregiver. Tristen Raphael MD, FACP Tile Setter Apprenticechemical etching processor, [facility] Staff, Myeloma and Blood and Marrow Transplant Programs Hematology and Medical Oncology [facility] [address] [facility] [address] Pager: [phone] documented in this encounter [facility] 02-25-2024 Nurse Note Additional intake questions: Has the patient had fever, nausea, vomiting, diarrhea, constipation, fatigue for > 1 week? Yes, fatigue Does the patient have a decreased appetite? No Does patient want to see a Director Of Music? No (yes to any of above refer patient to schedulers for dietitian appointment) ) Does patient have any new or increased numbness or tingling of extremities? No Is patient interested in fertility information? No Does patient need any prescription refills? No Does patient have an advanced directive in place? yes at home Electronically Signed By: Narcisa Otoole LPN [facility] 02-25-2024 Nurse Note Additional intake questions: Has the patient had fever, nausea, vomiting, diarrhea, constipation, fatigue for > 1 week? Yes, fatigue Does the patient have a decreased appetite? No Does patient want to see a Director Of Music? No (yes to any of above refer patient to schedulers for dietitian appointment) ) Does patient have any new or increased numbness or tingling of extremities? No Is patient interested in fertility information? No Does patient need any prescription refills? No Does patient have an advanced directive in place? yes at home Electronically Signed By: Narcisa Otoole LPN documented in this encounter [facility] 01-27-2024 Telephone encounter Note Refill of Lyrica 25mg tid sent. [facility] website checked and validated. All prescriptions have been APPROPRIATELY filled. No suspicious activity was identified. 01/27/2024 by Farrah Nelson PA-C [facility] 01-27-2024 Miscellaneous Notes Refill of Lyrica 25mg tid sent. PDMP website checked and validated. All prescriptions have been APPROPRIATELY filled. No suspicious activity was identified. 01/27/2024 by Farrah Nelson PA-C The patient has been identified by name and date of : Yes Caregiver verified no other encounters exist for this prescription request: Yes Caregiver confirmed with patient/requestor that no other refills are due, in the near future, with this provider at this time: Yes The last office visit in the department: 10/07/2023 Does the patient have a future office visit with this provider/department: Yes 03/09/2024 Requested Prescriptions Pending Prescriptions Disp Refills pregabalin (LYRICA) 25 mg capsule 270 capsule 1 Sig: Take 1 capsule by mouth three times a day for 180 days. Jody Camargo LPN January 27, 2024 8:45 AM documented in this encounter [facility] 01-27-2024 Telephone encounter Note The patient has been identified by name and date of : Yes Caregiver verified no other encounters exist for this prescription request: Yes Caregiver confirmed with patient/requestor that no other refills are due, in the near future, with this provider at this time: Yes The last office visit in the department: 10/07/2023 Does the patient have a future office visit with this provider/department: Yes 03/09/2024 Requested Prescriptions Pending Prescriptions Disp Refills pregabalin (LYRICA) 25 mg capsule 270 capsule 1 Sig: Take 1 capsule by mouth three times a day for 180 days. Jody Camargo LPN January 27, 2024 8:45 AM [facility] 12-25-2023 Telephone encounter Note Patient was seen by local MD and was prescribed prednisone and doxycycline for possible knee infection and will see orthopedics on 12/31/23. Jasmina Arita RN [facility] Work Phone: 12-25-2023 Miscellaneous Notes Patient was seen by local MD and was prescribed prednisone and doxycycline for possible knee infection and will see orthopedics on 12/31/23. Jasmina Arita RN documented in this encounter [facility] 12-24-2023 Telephone encounter Note Daughter called stating that Jasmina Lorenzana "that Dad has some recent complaints with his left knee. I got here Friday - Dad worked out that morning without a problem. He said his knees felt weak that night. He also said he'd had some more issues getting up and down from his recliner more in the past few days. Yesterday he told me to look at his left knee... it was warm to touch and slightly red. Right knee normal and both legs below knees normal. I checked them today and left knee still considerably warm to touch with redness. I don't recall him complaining of pain with the knees, just that he has more trouble getting up and down... which I've witnessed in my 2 days here." Instructed that patient should be seen by orthopedics and if painful to be seen in er. Jasmina Arita RN [facility] Work Phone: 12-24-2023 Miscellaneous Notes Daughter called stating that Jasmina Lorenzana "that Dad has some recent complaints with his left knee. I got here Friday - Dad worked out that morning without a problem. He said his knees felt weak that night. He also said he'd had some more issues getting up and down from his recliner more in the past few days. Yesterday he told me to look at his left knee... it was warm to touch and slightly red. Right knee normal and both legs below knees normal. I checked them today and left knee still considerably warm to touch with redness. I don't recall him complaining of pain with the knees, just that he has more trouble getting up and down... which I've witnessed in my 2 days here." Instructed that patient should be seen by orthopedics and if painful to be seen in er. Jasmina Arita RN documented in this encounter [facility] 11-12-2023 History of Present illness Narrative Images from the original note were not included. [facility] PATIENT NAME: Fidelina Nolan CC: f/u standard risk t(11;14) myeloma. Baseline assessment on initial diagnosis date 01/2020 IMWG criteria, [place] Journal of Haematology 121: 749-57, 2003, update in: Pravinie et al. Leukemia 20: 1467-73, 2006 and at IMW meeting Tammi 2010 Symptomatic multiple myeloma [place] light chain Related Organ or Tissue Involvement (CRAB) or other Myeloma Defining Event (MDE): Renal insufficiency, eGFR <40 ml/min or serum creatinine >2mg/dL, result of biopsy confirmation (if relationship to MM in doubt): GFR 36, child care group leader 1.8, Bone disease: At least one lytic bone lesion on XR or CT if BMPC >=10%, at least 2 bone lesions on XR or CT if BMPC<10%, location of lytic lesion(s): sternum, left 6th rib, right acetabulum; mild hypercalcemia (Ca 10.4) Myeloma FISH panel: t(11;14), loss of 1p Cytogenetics: 46,XY LDH: 180 ISS stage: II (albumin < 3,5g/dL OR b2M 3,5-5,4mg/L) RISS stage: II Monoclonal proteins at diagnosis: Serum M-spike: 0 gm/dL, Involved serum free light chains: 1198 mg/L and Uninvolved serum free light chains: 8.3 mg/L Total immunoglobulins at diagnosis: IgG 850 mg/dL, IgA 78 mg/dL, IgM 29mg/dL Bone marrow plasma cell infiltration: 20% Systemic treatment and disease course -01/2020- 07/18/2020: VRd. Standard dosing, V 1.3, R 25 mg, dex 20 mg. R 25 mg given for 2 weeks with first cycle then decreased to 15 mg starting second cycle. Grade 3 thrombocytopenia with second cycle of V, day 15 held. BR: VGPR by light chain criteria after one cycle. Appearance of a low level IgG kappa M protein in Mar and a faint lambda in April, will watch. AEs: insomnia on days of dex, possibly worsening diarrhea with R. -07/2020: R 15 mg maintenance. BR: VGPR. AE: Diarrhea and urgency. -01/05/2021- present: Biochemical relapse. PVd. V 1 mg/m2 and d 20 mg days 1,8,15, P 2 mg daily for 21 days every 28 days. BR: Serologic CR. AE: grade 4 neutropenia due to pom, reduced to 1 mg after first cycle. Grade 1 neuropathy, reduced V to every other week in March and dose to 0.7 in June 2021. V stopped in December 2021 due to neuropathy although unlikely to be related. Dex reduced to 8 mg at same time. Local treatments (radiation, surgery, kyphoplasty) XRT: Right pelvis (acetabulum), 2000 cGy in [address] Cedeno. HISTORY OF THE PRESENT ILLNESS: Mr. Nolan continues to do well. Taking pom. Had a good time in [place], fell once, no fractures. PMH: OA HTN DM2 Hypothyroidism Skin cancer (unknown type) PSH Skin cancer removal CURRENT MEDICATIONS: Current Outpatient Medications Medication Sig loratadine (CLARITIN) 10 mg tablet Take 10 mg by mouth once daily. pomalidomide (POMALYST) 1 mg capsule TAKE 1 CAPSULE ONCE DAILY FOR 21 DAYS ON WITH 7 DAYS OFF diclofenac (VOLTAREN ARTHRITIS PAIN) 1 % topical gel Apply 4 g to affected area four times a day as needed. pregabalin (LYRICA) 25 mg capsule Take 1 capsule by mouth three times a day for 180 days. cholestyramine (QUESTRAN) 4 gram packet take ONE PACKET BY MOUTH THREE TIMES DAILY NEEDED rivaroxaban (XARELTO) 20 mg tablet TAKE 1 TABLET BY MOUTH EVERY DAY WITH DINNER mecobalamin, vitamin B12, 1,000 mcg ODT Dissolve 1 tablet under the tongue once daily. losartan (COZAAR) 50 mg tablet Take 50 mg by mouth once daily. acetaminophen (TYLENOL) 325 mg tablet Take 2 tablets by mouth every 6 hours as needed. cholecalciferol (VITAMIN D3) 1,000 unit tab tablet 1 tablet by ORAL/FEEDING TUBE route once daily. calcium carbonate (CALCIUM ANTACID) 500 mg chew Take 2 tablets by mouth twice daily. SYNTHROID 25 mcg tablet Take 25 mcg by mouth once daily. Cyanocobalamin 1,000 mcg subl DISSOLVE 1 TABLET UNDER THE TONGUE ONCE DAILY. No current facility-administered medications for this visit. ALLERGIES Allergen Reactions Amoxicillin Unknown Arithromycin [Azith* Rash Sulfa (Sulfonamide * Unknown FH: no FH of cancer Social History Tobacco Use Smoking status: No Substance Use Topics Alcohol use: No Drug use: No Retired. Lives in the [facility] with . REVIEW OF SYSTEMS Ten systems reviewed and negative except for those recorded in the HPI. PHYSICAL EXAMINATION: BP 139/63 Pulse 75 Temp 36.1 C (97 F) (Temporal) Resp 19 Wt 92.4 kg (203 lb 11.3 oz) SpO2 98% BMI 28.42 kg/m General appearance: Well appearing, alert, in no acute distress, well-hydrated, well nourished. 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 More or less stable light chains, [place]. Hematology: CBC with anemia, likely myeloma related, improved anemia. B12 was low normal, on B12 replacement. Iron panel looked okay. Thrombocytopenia due to pom. 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 Stable CKD stage 3. Infectious disease: 2)Immunizations: Yearly influenza vaccine. Musculoskeletal: hip pain due to myeloma. S/p RT to hip, pain has resolved. Now s/p laminectomy for spine DJD. Back/hip pain due to DJD, voltaren gel PRN. Bisphoshonates: has completed his course of ZA. Venous thromboembolism risk: rivaroxaban for soleal vein DVT and while on IMiDs. off aspirin. GI: Diarrhea: chronic issue, unpredictable pattern, may be exacerbated by R. Much improved while on pom, takes cholestyramine. control counseling: Performed, patient knows that two reliable methods of control are mandated while on IMiDs and also recommended for any other antimyeloma therapy except for single agent steroids and patient complies. 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 Chest: Repeat CT in 04/2023 to f/u on prior nodules, stable. Next follow-up in 3 months. Monthly labs. The patient's questions were answered to satisfaction. (Elements copied from my note dated 08/06/23, have been reviewed and updated where appropriate, and all reflect current assessment and medical decision making during today's encounter, November 12, 2023) I spent a total of 40 minutes on the date of the service which included preparing to see the patient, [id number] patient care, completing clinical documentation, obtaining and/or reviewing separately obtained history, performing a medically appropriate examination, counseling and educating the patient/family/caregiver, ordering medications, tests, or procedures and communicating results to the patient/family/caregiver. Tristen Raphael MD, FACP Tile Setter Apprenticechemical etching processor, [facility] Staff, Myeloma and Blood [facility] Marrow Transplant Programs Hematology and Medical Oncology [place] [phone] Pager: [phone] documented in this encounter [facility] 11-12-2023 Nurse Note Additional intake questions: Has the patient had fever, nausea, vomiting, diarrhea, constipation, fatigue for > 1 week? Yes, fatigue Does the patient have a decreased appetite? No Does patient want to see a Director Of Music? No (yes to any of above refer patient to schedulers for dietitian appointment) ) Does patient have any new or increased numbness or tingling of extremities? No Is patient interested in fertility information? No Does patient need any prescription refills? No Does patient have an advanced directive in place? no [facility] 11-12-2023 Nurse Note Additional intake questions: Has the patient had fever, nausea, vomiting, diarrhea, constipation, fatigue for > 1 week? Yes, fatigue Does the patient have a decreased appetite? No Does patient want to see a Director Of Music? No (yes to any of above refer patient to schedulers for dietitian appointment) ) Does patient have any new or increased numbness or tingling of extremities? No Is patient interested in fertility information? No Does patient need any prescription refills? No Does patient have an advanced directive in place? no documented in this encounter [facility] 10-07-2023 Miscellaneous Notes Faxed PT order to [facility] in [place], [place] per patient and family request 12 pages on 10/07/2023 fax number [phone]. Mell Camargo LPN documented in this encounter [facility] 10-07-2023 Instructions Farrah Nelson PA-C - 10/07/2023 10:31 AM EDT Alpha lipoic acid 600mg Physical therapy for low back and right leg, right arm. Increase water intake to 60 ounces a day Use walker to get around Follow up with primary care for right hand Follow up in 6 months documented in this encounter [facility] 10-07-2023 History of Present illness Narrative ESTABLISHED PATIENT VISIT Last visit: 05/21/23 ASSESSMENT/PLAN: 1. Neuropathy - ICD9: 355.9, ICD10: G62.9 (primary diagnosis) 2. Numbness and tingling - ICD9: 782.0, ICD10: R20.0, R20.2 3. Right leg weakness - ICD9: 729.89, ICD10: R29.898 4. Neuropathy due to chemotherapeutic drug (HCC) - ICD9: 357.6, E933.1, ICD10: G62.0, T45.1X5A Patient presents for follow-up for paresthesias to the lower extremities beginning about 3 years ago when he was diagnosed with multiple myeloma, started on chemotherapy but also had lumbar surgery for degenerative changes. Symptoms are constant but exacerbated by positional changes, standing up and standing for long periods of time. Likely multifactorial including neuropathy versus lumbosacral. Patient also with chronic B12 deficiency and supplements this. Patient is stable on 25 mg of Lyrica twice daily, no changes and will continue this regimen. No falls, no new symptoms. Notes that his weakness in his right leg is stable, diagnosed with bursitis of the right hip and is undergoing injections on the . Did discuss increasing Lyrica versus other medications or supplements and patient would like to try alpha lipoic acid 600 mg daily. Did discuss work-up that was previously deferred and patient has agreed to an EMG of the right lower extremity due to weakness and paresthesias. Patient to have this done at [facility], order will be faxed over. Patient without any signs or symptoms of cord compression at this time. Patient is agreeable to treatment plan of care at this time, all questions were answered. Patient to follow-up in 3 to 4 months or sooner should any symptoms change or worsen. Of note, patient is going to [place] from July to mid September. Farrah Nelson PA-C CHIEF COMPLAINT: follow up HISTORY OF PRESENT ILLNESS: Fidelina Nolan is a 83 year old male, BMI 27.96 kg/m2 with a PMH significant for tn, hypothyroidism, lumbar fusion L3-5, and multiple myeloma with hx of radiation and chemotherapy. Last seen for neuropathy on 05/21/23, hx of MM, doing well on lyrica 25mg bid. EMG ordered. Hematology ordered repeat labs and pending now. Patient presents with his family for follow-up appointment. Notes that he has been doing well since last appointment, notes some increased function to his right foot, states he is now able to spread his toes which he was not able before after his lumbar surgery. No change in his numbness and tingling, tolerating Lyrica well. Did have a fall about 1 month ago when he was walking into the restaurant. States that he believed to she was untied so he tripped on this and fell on his right side injuring his right arm and shoulder, did not hit his head. No headaches or Neurologic symptoms afterwards, patient is compliant with his Xarelto. No lightheadedness or dizziness, reports the fall was mechanical in nature. Is following with oncology regularly. Also saw his pain medicine doctor, had a shot in his right hip but did not help any of his pain. Still reporting some mild to moderate pain down his right leg causing some weakness, this is stable from previous. Also reporting some weakness in his hands that is new, right-sided only. Unsure if this is secondary from his fall but having some pain in his thumb preventing him from fully squeezing his hand. Notes is significantly improved over the last few weeks though. No bowel bladder incontinence, no saddle anesthesia. So compliant with B12 injections. Drinking about 1 to 2 glasses of water a day, primarily drinks soda, juice. No other new concerns today. REVIEW OF SYSTEMS GENERAL:No weight loss, malaise or fevers. HEENT:Negative for frequent or significant headaches, No changes in hearing or vision, no nose bleeds or other nasal problems NECK:Negative for lumps, goiter, pain and significant neck swelling RESPIRATORY: Negative for cough, wheezing or shortness of breath. CARDIOVASCULAR: Negative for chest pain, leg swelling or palpitations. GASTROINTESTINAL: Negative for abdominal discomfort, blood in stools or black stools or change in bowel habits GENITOURINARY: No history of dysuria, frequency or incontinence MUSCULOSKELETAL: Negative for joint pain or swelling, back pain or muscle pain. NEUROLOGIC:Negative for focal numbness or weakness, headaches and dizziness or syncope, vision changes, speech/languag changes - EXCEPT that as per HPI above. SKIN:Negative for lesions, rash, and itching. PSYCHIATRIC: Negative for sleep disturbance, mood disorder and recent psychosocial stressors. HEMATOLOGIC/LYMPHATIC/IMMUNOLOGIC:N egative for prolonged bleeding, bruising easily or swollen nodes. ENDOCRINE: Negative for cold or heat intolerance, polyuria, polydipsia and goiter. The remainder of the ROS was reviewed and is negative. LAB/IMAGING: Those performed since patient's last visit have been reviewed. EMG 06-26-2023 Impression: Predominantly axonal, sensorimotor peripheral neuropathy Chronic neurogenic changes seen in the tibialis anterior muscles can also be seen in the setting of chronic, mild bilateral L5 radiculopathies. MEDICATIONS: diclofenac (VOLTAREN ARTHRITIS PAIN) 1 % topical gel Apply 4 g to affected area four times a day as needed. pregabalin (LYRICA) 25 mg capsule Take 1 capsule by mouth three times a day for 180 days. cholestyramine (QUESTRAN) 4 gram packet take ONE PACKET BY MOUTH THREE TIMES DAILY NEEDED rivaroxaban (XARELTO) 20 mg tablet TAKE 1 TABLET BY MOUTH EVERY DAY WITH DINNER mecobalamin, vitamin B12, 1,000 mcg ODT Dissolve 1 tablet under the tongue once daily. pomalidomide (POMALYST) 1 mg capsule TAKE 1 CAPSULE ONCE DAILY FOR 21 DAYS ON WITH 7 DAYS OFF losartan (COZAAR) 50 mg tablet Take 50 mg by mouth once daily. acetaminophen (TYLENOL) 325 mg tablet Take 2 tablets by mouth every 6 hours as needed. cholecalciferol (VITAMIN D3) 1,000 unit tab tablet 1 tablet by ORAL/FEEDING TUBE route once daily. calcium carbonate (CALCIUM ANTACID) 500 mg chew Take 2 tablets by mouth twice daily. SYNTHROID 25 mcg tablet Take 25 mcg by mouth once daily. pomalidomide (POMALYST) 1 mg capsule TAKE 1 CAPSULE ONCE DAILY FOR 21 DAYS ON WITH 7 DAYS OFF Cyanocobalamin 1,000 mcg subl DISSOLVE 1 TABLET UNDER THE TONGUE ONCE DAILY. HISTORIES PAST MEDICAL HISTORY Diagnosis Date Hypertension Hypothyroid No family history on file. SOCIAL HISTORY Social History Tobacco Use Smoking status: Never Smokeless tobacco: Never Vaping Use Vaping Use: Never used Substance Use Topics Alcohol use: Not Currently Drug use: Not Currently PHYSICAL EXAMINATION BP 112/62 Pulse 63 Resp 16 Wt 90.9 kg (200 lb 6.4 oz) SpO2 98% BMI 27.96 kg/m GENERAL EXAM: General appearance: NAD, pleasant. HEENT: NC/AT, nasal congestion absent, no oral lesions, membranes moist. NECK: No masses, supple. Lungs: Breathing comfortably Extr: Moves all extremities without difficulty Skin: Cool to touch. No rash. NEUROLOGICAL EXAM: General: Awake, alert, oriented x3 (person,place,time), speech fluent, no dysarthria; comprehension, naming, repetition intact. Short and jail memory intact. CN: PERRL, EOMI and without nystagmus, VFF to confrontation, facial sensation and strength are normal and symmetric, poor hearing bilaterally, hearing aids in place, palate and tongue movements are intact and symmetric. SCM and trapezius strength normal. Motor: Decreased retirement plan counselor strength to the right upper extremity, but otherwise intact throughout the right upper extremity. Decreased abduction and adduction of fingers in the right hand. Negative Tinel's sign. Right lower extremity with stable weakness noted previously, 4/5 throughout the right lower extremity. Reflexes: Absent Achilles reflexes, diminished in lower extremities throughout. 2/4 to the upper extremities bilaterally, negative Parker. Coordination: FNF intact. No tremors. Sensation: Significantly diminished vibration to lower extremities bilaterally. Decreased vibration to the hands, minimally decreased at the wrist bilaterally. Absent sensation to temperature in the lower extremities at the ankle and mid tib-fib. Intact temperature to the hands bilaterally. Gait: Cautious, ambulating with a walker Assessment and Plan: ASSESSMENT/PLAN: 1. Neuropathy - ICD9: 355.9, ICD10: G62.9 (primary diagnosis) 2. Numbness and tingling - ICD9: 782.0, ICD10: R20.0, R20.2 3. Right leg weakness - ICD9: 729.89, ICD10: R29.898 4. Neuropathy due to chemotherapeutic drug (HCC) - ICD9: 357.6, E933.1, ICD10: G62.0, T45.1X5A 5. Degeneration of lumbar intervertebral disc - ICD9: 722.52, ICD10: M51.36 Patient's neuropathy stable from previous. EMG shows neuropathy throughout lower extremities as well as a likely mild bilateral L5 radiculopathy. Patient with chronic right leg weakness that is stable from previous. Did have 1 fall about a month ago where he tripped over his feet walking out of a restaurant with his walker, notes that his shoelaces were tied. No loss of conscious or head injury with this, no AMS. Notes some right hand weakness that is new over the last month, likely from the fall as he fell on his right side. Notes significant improvement of the last 2 weeks or so, but still has some pain in the thumb. Encouraged him to follow-up with his primary care regarding this issue for possible imaging. Did discuss EMG results at length including signs of neuropathy and radiculopathy. Patient tolerating Lyrica well, compliant with Lyrica 25 mg 3 times daily. Discussed alpha lipoic acid 600 mg taking daily to help prevent further worsening of neuropathy and patient is amenable. Additionally, due to the radiculopathy, right leg weakness did discuss physical therapy and patient is amenable to starting this again. Referral sent. Discussed other conservative therapies as well including water intake, increasing physical activity. Patient agrees and understands. Patient agreeable to treatment plan of care at this time, all questions were answered. Patient to follow-up in 5 to 6 months or sooner should any symptoms change or worsen. Farrah Nelson PA-C I spent a total of 45 minutes on the date of the service which included preparing to see the patient, [id number] patient care, completing clinical documentation, obtaining and/or reviewing separately obtained history, performing a medically appropriate examination, counseling and educating the patient/family/caregiver, and ordering medications, tests, or procedures. This document has been created with the use of voice recognition technology. It may contain inaccuracies: (e.g. misspellings, inaccurate syntax or word sense) that have escaped review. documented in this encounter [facility] 05-21-2023 Instructions Farrah Nelson PA-C - 05/21/2023 10:00 AM EDT Continue Lyrica 25mg twice daily Alpha lipoic acid 600 mg once a day EMG of the right leg (at [facility] Follow up in 3-4 months documented in this encounter [facility] 05-21-2023 History of Present illness Narrative ESTABLISHED PATIENT VISIT Last visit: 02/06/23 with Kelin Madden DUCT LAYER HELPER G62.9 Neuropathy (primary encounter diagnosis) R20.0, R20.2 Numbness and tingling R29.898 Right leg weakness M25.551 Pain in right hip Comment: Pt with pmh htn, hypothyroidism, lumbar fusion L3-5, and multiple myeloma with hx of radiation and chemotherapy currently following for n/t to both feet. Numbness/tingling possibly secondary to multiple myeloma and treatment, however, also possible lumbar etiology as well. He continues to follow with pain management for L spine injections and more recently treatment of R hip pain. Today, he reports possible improvement of numbness though notes paresthesias persist to both feet and ankles. Sensory exam is unchanged and does not appear that there has been any progression of peripheral neuropathy. However, exam notable for weakness throughout RLE (previously only noted in certain muscle groups). Discussed further evaluation with MRI brain or possible EMG/NCV, however, at this time he defers further testing and would like to attempt to relieve hip pain to determine if weakness improves. He will be starting steroid taper tomorrow and has upcoming appt with pain management after. Have asked that after treatment this upcoming week he notify the office if sx do not improve and will then proceed with further testing. For treatment of discomfort will continue Lyrica 25mg TID (SE with 50mg dose). Recommend continuing to use walker or cane both at home and when out of the house. He will follow up with Litzy Nelson PA-C in 3-4 months for medication and sx review or sooner should new or worsening sx occur. Kelin Madden APRN.DUCT LAYER HELPER CHIEF COMPLAINT: follow up HISTORY OF PRESENT ILLNESS: Fidelina Nolan is a 83 year old male, There were no vitals taken for this visit. with a PMH significant for tn, hypothyroidism, lumbar fusion L3-5, and multiple myeloma with hx of radiation and chemotherapy. Patient saw Kelin Madden DUCT LAYER HELPER 02/06/23 for neuropathy. Possible improvement in neuropathy, deferring work up. Started steroid taper, follow with pain management. Continuing lyrica 25mg tid. Saw hematology 05/07/23, noted currently on B12 replacement. Lumbar surgery in 2019. Has tried gabapentin and lyrica for neuropathy. Patient presents for follow-up for paresthesias in the feet bilaterally. Patient reports this is a chronic issue for the last 3 to 3-1/2 years, began around the time he was diagnosed with multiple myeloma as well as had lumbar surgery. His symptoms are significantly worse when he stands upright, his paresthesias trended to pain throughout his entire legs the longer he stands. He also reports some unsteadiness on his feet as well preventing him from resuming playing golf. At last appointment patient was having some weakness on the right side and deferred any work-up at that time. Notes that this weakness has been stable, no falls, no bowel bladder incontinence and no saddle anesthesia. Attributes his weakness to his degenerative changes in his lumbar spine as well as his right hip. Notes that he is scheduled to have an injection in the right hip for bursitis with orthopedics on the . No new symptoms or concerns today. Tolerating Lyrica 25 mg twice daily, states that it helped symptoms but does not completely alleviate his symptoms. Also notes that he is compliant with his B12 supplementation which he has been on for years. Following with his oncologist, multiple myeloma is stable at this time. Uses a cane and walker at home which significantly helps with the pain in his hip when walking. Is not seeing a physical therapist, but does his physical therapy exercises regularly. REVIEW OF SYSTEMS GENERAL:No weight loss, malaise or fevers. HEENT:Negative for frequent or significant headaches, No changes in hearing or vision, no nose bleeds or other nasal problems NECK:Negative for lumps, goiter, pain and significant neck swelling RESPIRATORY: Negative for cough, wheezing or shortness of breath. CARDIOVASCULAR: Negative for chest pain, leg swelling or palpitations. GASTROINTESTINAL: Negative for abdominal discomfort, blood in stools or black stools or change in bowel habits GENITOURINARY: No history of dysuria, frequency or incontinence MUSCULOSKELETAL: Negative for joint pain or swelling, back pain or muscle pain. NEUROLOGIC:Negative for focal numbness or weakness, headaches and dizziness or syncope, vision changes, speech/languag changes - EXCEPT that as per HPI above. SKIN:Negative for lesions, rash, and itching. PSYCHIATRIC: Negative for sleep disturbance, mood disorder and recent psychosocial stressors. HEMATOLOGIC/LYMPHATIC/IMMUNOLOGIC:N egative for prolonged bleeding, bruising easily or swollen nodes. ENDOCRINE: Negative for cold or heat intolerance, polyuria, polydipsia and goiter. The remainder of the ROS was reviewed and is negative. LAB/IMAGING: Those performed since patient's last visit have been reviewed. none MEDICATIONS: pomalidomide (POMALYST) 1 mg capsule TAKE 1 CAPSULE ONCE DAILY FOR 21 DAYS ON WITH 7 DAYS OFF rivaroxaban (XARELTO) 20 mg tablet TAKE 1 TABLET BY MOUTH EVERY DAY WITH DINNER losartan (COZAAR) 50 mg tablet Take 50 mg by mouth once daily. pregabalin (LYRICA) 25 mg capsule Take 1 capsule by mouth three times daily for 180 days. cholestyramine (QUESTRAN) 4 gram packet TAKE 1 G BY MOUTH THREE TIMES DAILY NEEDED. mecobalamin, vitamin B12, 1,000 mcg ODT Dissolve 1 tablet under the tongue once daily. acetaminophen (TYLENOL) 325 mg tablet Take 2 tablets by mouth every 6 hours as needed. cholecalciferol (VITAMIN D3) 1,000 unit tab tablet 1 tablet by ORAL/FEEDING TUBE route once daily. calcium carbonate (CALCIUM ANTACID) 500 mg chew Take 2 tablets by mouth twice daily. SYNTHROID 25 mcg tablet Take 25 mcg by mouth once daily. Cyanocobalamin 1,000 mcg subl DISSOLVE 1 TABLET UNDER THE TONGUE ONCE DAILY. HISTORIES PAST MEDICAL HISTORY Diagnosis Date Hypertension Hypothyroid No family history on file. SOCIAL HISTORY Social History Tobacco Use Smoking status: Never Smokeless tobacco: Never Vaping Use Vaping Use: Never used Substance Use Topics Alcohol use: Not Currently Drug use: Not Currently PHYSICAL EXAMINATION BP 116/75 Pulse 60 Resp 18 Wt 93.4 kg (205 lb 12.8 oz) SpO2 98% BMI 28.72 kg/m GENERAL EXAM: General appearance: NAD, pleasant. HEENT: NC/AT, nasal congestion absent, no oral lesions, membranes moist. NECK: No masses, supple. Lungs: Breathing comfortably Extr: Moves all extremities without difficulty Skin: Cool to touch. No rash. NEUROLOGICAL EXAM: General: Awake, alert, oriented x3 (person,place,time), speech fluent, no dysarthria; comprehension, naming, repetition intact. Short and jail memory intact. CN: PERRL, EOMI and without nystagmus, VFF to confrontation, facial sensation and strength are normal and symmetric, hearing is poor bilaterally, palate and tongue movements are intact and symmetric. SCM and trapezius strength normal. Motor: Normal tone, bulk. 4/5 strength to the right lower extremity with hip flexion, lower leg extension and foot dorsiflexion. Reflexes: Absent reflexes in the achilles bilaterally, 1/2 throughout. Negative babinski bilaterally Coordination: FNF intact. No tremors. Sensation: Decreased temperature sensation to BLE. Vibratory sensation is decreased to bilateral knees BLE. Pinprick sensation decreased to knee bilaterally. Intact in BUE. Gait: Uses rolator, cautious gait Assessment and Plan: ASSESSMENT/PLAN: 1. Neuropathy - ICD9: 355.9, ICD10: G62.9 (primary diagnosis) 2. Numbness and tingling - ICD9: 782.0, ICD10: R20.0, R20.2 3. Right leg weakness - ICD9: 729.89, ICD10: R29.898 4. Neuropathy due to chemotherapeutic drug (HCC) - ICD9: 357.6, E933.1, ICD10: G62.0, T45.1X5A Patient presents for follow-up for paresthesias to the lower extremities beginning about 3 years ago when he was diagnosed with multiple myeloma, started on chemotherapy but also had lumbar surgery for degenerative changes. Symptoms are constant but exacerbated by positional changes, standing up and standing for long periods of time. Likely multifactorial including neuropathy versus lumbosacral. Patient also with chronic B12 deficiency and supplements this. Patient is stable on 25 mg of Lyrica twice daily, no changes and will continue this regimen. No falls, no new symptoms. Notes that his weakness in his right leg is stable, diagnosed with bursitis of the right hip and is undergoing injections on the . Did discuss increasing Lyrica versus other medications or supplements and patient would like to try alpha lipoic acid 600 mg daily. Did discuss work-up that was previously deferred and patient has agreed to an EMG of the right lower extremity due to weakness and paresthesias. Patient to have this done at [facility], order will be faxed over. Patient without any signs or symptoms of cord compression at this time. Patient is agreeable to treatment plan of care at this time, all questions were answered. Patient to follow-up in 3 to 4 months or sooner should any symptoms change or worsen. Of note, patient is going to [place] from July to mid September. Farrah Nelson PA-C I spent a total of 55 minutes on the date of the service which included preparing to see the patient, [id number] patient care, completing clinical documentation, obtaining and/or reviewing separately obtained history, performing a medically appropriate examination, counseling and educating the patient/family/caregiver, and ordering medications, tests, or procedures. This document has been created with the use of voice recognition technology. It may contain inaccuracies: (e.g. misspellings, inaccurate syntax or word sense) that have escaped review. documented in this encounter [facility] 05-15-2023 History of Present illness Narrative Radiology Service Progress Note PATIENT NAME: Fidelina Nolan DATE OF SERVICE: May 15, 2023 TIME: 1:51 PM PATIENT IDENTITY VERIFICATION COMPLETED USING TWO (2) IDENTIFIERS: Name and Date of confirmed by patient verbally. FALL SCREENING: Has the patient had 2 falls in the last year or 1 fall with injury or currently using an Ambulatory Assistive Device (Walker, Cane, Wheelchair, Crutches, etc.)? No PATIENT GENDER DATA: Male PATIENT RELEVANT IMPLANT DATA REVIEWED: Yes RADIOLOGY DEPARTMENT: CT; Exam(s) Completed: Chest PERIPHERAL IV DATA: Not applicable SIGNED BY: RT Lisa(R) May 15, 2023 1:51 PM documented in this encounter [facility] 05-07-2023 History of Present illness Narrative Images from the original note were not included. [facility] PATIENT NAME: Fidelina Nolan CC: f/u standard risk t(11;14) myeloma. Baseline assessment on initial diagnosis date 01/2020 IMWG criteria, [place] Journal of Haematology 121: 749-57, 2003, update in: Pravinie et al. Leukemia 20: 1467-73, 2006 and at IMW meeting Tammi 2010 Symptomatic multiple myeloma [place] light chain Related Organ or Tissue Involvement (CRAB) or other Myeloma Defining Event (MDE): Renal insufficiency, eGFR <40 ml/min or serum creatinine >2mg/dL, result of biopsy confirmation (if relationship to MM in doubt): GFR 36, child care group leader 1.8, Bone disease: At least one lytic bone lesion on XR or CT if BMPC >=10%, at least 2 bone lesions on XR or CT if BMPC<10%, location of lytic lesion(s): sternum, left 6th rib, right acetabulum; mild hypercalcemia (Ca 10.4) Myeloma FISH panel: t(11;14), loss of 1p Cytogenetics: 46,XY LDH: 180 ISS stage: II (albumin < 3,5g/dL OR b2M 3,5-5,4mg/L) RISS stage: II Monoclonal proteins at diagnosis: Serum M-spike: 0 gm/dL, Involved serum free light chains: 1198 mg/L and Uninvolved serum free light chains: 8.3 mg/L Total immunoglobulins at diagnosis: IgG 850 mg/dL, IgA 78 mg/dL, IgM 29mg/dL Bone marrow plasma cell infiltration: 20% Systemic treatment and disease course -01/2020- 07/18/2020: VRd. Standard dosing, V 1.3, R 25 mg, dex 20 mg. R 25 mg given for 2 weeks with first cycle then decreased to 15 mg starting second cycle. Grade 3 thrombocytopenia with second cycle of V, day 15 held. BR: VGPR by light chain criteria after one cycle. Appearance of a low level IgG kappa M protein in Mar and a faint lambda in April, will watch. AEs: insomnia on days of dex, possibly worsening diarrhea with R. -07/2020: R 15 mg maintenance. BR: VGPR. AE: Diarrhea and urgency. -01/05/2021- present: Biochemical relapse. PVd. V 1 mg/m2 and d 20 mg days 1,8,15, P 2 mg daily for 21 days every 28 days. BR: Serologic CR. AE: grade 4 neutropenia due to pom, reduced to 1 mg after first cycle. Grade 1 neuropathy, reduced V to every other week in March and dose to 0.7 in June 2021. V stopped in December 2021 due to neuropathy although unlikely to be related. Dex reduced to 8 mg at same time. Local treatments (radiation, surgery, kyphoplasty) XRT: Right pelvis (acetabulum), 2000 cGy in [address] Cedeno. HISTORY OF THE PRESENT ILLNESS: Mr. Nolan continues to do well. Taking pom as instructed. right hip pain seems to be related to bursitis. 2 scalp lesions removed, path is pending. PMH: OA HTN DM2 Hypothyroidism Skin cancer (unknown type) PSH Skin cancer removal CURRENT MEDICATIONS: Current Outpatient Medications Medication Sig pomalidomide (POMALYST) 1 mg capsule TAKE 1 CAPSULE ONCE DAILY FOR 21 DAYS ON WITH 7 DAYS OFF rivaroxaban (XARELTO) 20 mg tablet TAKE 1 TABLET BY MOUTH EVERY DAY WITH DINNER losartan (COZAAR) 50 mg tablet Take 50 mg by mouth once daily. pregabalin (LYRICA) 25 mg capsule Take 1 capsule by mouth three times daily for 180 days. cholestyramine (QUESTRAN) 4 gram packet TAKE 1 G BY MOUTH THREE TIMES DAILY NEEDED. Cyanocobalamin 1,000 mcg subl DISSOLVE 1 TABLET UNDER THE TONGUE ONCE DAILY. mecobalamin, vitamin B12, 1,000 mcg ODT Dissolve 1 tablet under the tongue once daily. acetaminophen (TYLENOL) 325 mg tablet Take 2 tablets by mouth every 6 hours as needed. cholecalciferol (VITAMIN D3) 1,000 unit tab tablet 1 tablet by ORAL/FEEDING TUBE route once daily. calcium carbonate (CALCIUM ANTACID) 500 mg chew Take 2 tablets by mouth twice daily. (Patient not taking: Reported on 02/06/2023) SYNTHROID 25 mcg tablet Take 25 mcg by mouth once daily. No current facility-administered medications for this visit. ALLERGIES Allergen Reactions Arithromycin [Azith* Rash FH: no FH of cancer Social History Tobacco Use Smoking status: No Substance Use Topics Alcohol use: No Drug use: No Retired. Lives in the [facility] with . REVIEW OF SYSTEMS Ten systems reviewed and negative except for those recorded in the HPI. PHYSICAL EXAMINATION: BP 151/71 Pulse 71 Temp 36.4 C (97.5 F) (Oral) Resp 18 Wt 91.5 kg (201 lb 12.8 oz) BMI 28.16 kg/m General appearance: Well appearing, alert, in no acute distress, well-hydrated, well nourished. 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 More or less stable light chains, [place]. Hematology: CBC with anemia, likely myeloma related, improved anemia. B12 was low normal, on B12 replacement. Iron panel looked okay. Thrombocytopenia due to pom. 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 Stable CKD stage 3. Infectious disease: 2)Immunizations: Yearly influenza vaccine. Due for pneumonia . Musculoskeletal: hip pain due to myeloma. S/p RT to hip, pain has resolved. Now s/p laminectomy for spine DJD. Right hip pain, OA and bursitis, local ortho seeing. Bisphoshonates: has completed his course of ZA. Venous thromboembolism risk: rivaroxaban for soleal vein DVT and while on IMiDs. off aspirin. GI: Diarrhea: chronic issue, unpredictable pattern, may be exacerbated by R. Much improved while on pom, takes cholestyramine. control counseling: Performed, patient knows that two reliable methods of control are mandated while on IMiDs and also recommended for any other antimyeloma therapy except for single agent steroids and patient complies. Skin: SCC removed to scalp, path pending, needs close follow up with derm. Chest: Repeat CT to f/u on prior nodules. Next follow-up in Jul before he goes to [facility]. Monthly labs locally. The patient's questions were answered to satisfaction. (Elements copied from my note dated 01/29/23, have been reviewed and updated where appropriate, and all reflect current assessment and medical decision making during today's encounter, May 07, 2023) I spent a total of 40 minutes on the date of the service which included preparing to see the patient, [id number] patient care, completing clinical documentation, obtaining and/or reviewing separately obtained history, performing a medically appropriate examination, counseling and educating the patient/family/caregiver, ordering medications, tests, or procedures and communicating results to the patient/family/caregiver. Tristen Raphael MD documented in this encounter [facility] 05-07-2023 Nurse Note Additional intake questions: Has the patient had fever, nausea, vomiting, diarrhea, constipation, fatigue for > 1 week? Yes, fatigue Does the patient have a decreased appetite? No Does patient want to see a Director Of Music? No (yes to any of above refer patient to schedulers for dietitian appointment) ) Does patient have any new or increased numbness or tingling of extremities? No Is patient interested in fertility information? No Does patient need any prescription refills? No Does patient have an advanced directive in place? yes at home Electronically Signed By: Narcisa Otoole LPN documented in this encounter [facility] 05-05-2023 History of Present illness Narrative Radiology Service Progress Note PATIENT NAME: Fidelina Nolan DATE OF SERVICE: May 05, 2023 TIME: 2:07 PM PATIENT IDENTITY VERIFICATION COMPLETED USING TWO (2) IDENTIFIERS: Name and Date of confirmed by patient verbally. FALL SCREENING: Has the patient had 2 falls in the last year or 1 fall with injury or currently using an Ambulatory Assistive Device (Walker, Cane, Wheelchair, Crutches, etc.)? No PATIENT GENDER DATA: Male PATIENT RELEVANT IMPLANT DATA REVIEWED: Yes RADIOLOGY DEPARTMENT: CT; Exam(s) Completed: rt hip PERIPHERAL IV DATA: Not applicable SIGNED BY: RT Lisa(R) May 05, 2023 2:07 PM documented in this encounter [facility] 02-06-2023 History of Present illness Narrative Images from the original note were not included. [facility] [place] Follow-up Visit Follow-up note February 06, 2023 HPI: Mr. Nolan presents today for a follow-up visit. Per his previous visit on 10/10/22: G62.9 Neuropathy (primary encounter diagnosis) Comment: Pt with hx of n/t to both feet with radiation to level of the knee. History of htn, hypothyroidism, lumbar fusion L3-5, and multiple myeloma with hx of radiation and chemotherapy. As previously noted, numbness/tingling with possible relation to multiple myeloma and treatment, however, also question if there is possible lumbar etiology as well. At time of last appointment tingling had improved and no reported lumbar pain, however, today he reports significant intermittent lumbar pain as well as R hip pain. He is currently following with Dr. Mejia with pain management and will be receiving lumbar injections in the upcoming weeks. Exam today remains unchanged and no worsening of peripheral neuropathy. He is currently taking Lyrica 25mg BID without SE or concerns (SE with 50mg dose). He does report that it was recommended he increase his Lyrica dose to TID to avoid SE with possible improvement in pain. Agree with trial of 25mg TID. Reviewed SE and importance of notifying office if SE occur. Updated lab work reviewed from 08/12. Recommend continuing to use walker or cane both at home and when out of the house. Doing well today. Blood pressure is good. Oxygen has been good. Feels addition of one pill of Lyrica has possibly helped some. In the morning he can get up quickly, however, as the day goes on he will have to steady himself. No excruciating pain in his feet. Walks better in bare feet than with shoes. Shoes feel heavy or like he has weights on his ankles. Some days special shoes help. When walking with his walker he feels he can walk normally. Increased difficulty when walking with his can or without assistive device. Has pain in his hip. Worse when walking with a cane. Had lumbar injection in October. Will be trying a steroid next. Fist dose is tomorrow. If no improvement will then be following up for hip injection. Goes to rehab center to workout and does stationary bike/arm workout. Wants to golf but balance is off and feels like he will fall. PAST MEDICAL HISTORY Diagnosis Date Hypertension Hypothyroid PAST SURGICAL HISTORY Procedure Laterality Date BACK SURGERY HX 07/11/2020 L3-5 CATARACT EXTRACTION HX Right 2013 PAST SURGICAL HISTORY OF 1991 spine surgery Current Outpatient Medications on File Prior to Visit Medication Sig pomalidomide (POMALYST) 1 mg capsule TAKE 1 CAPSULE ONCE DAILY FOR 21 DAYS ON WITH 7 DAYS OFF pregabalin (LYRICA) 25 mg capsule Take 1 capsule by mouth three times daily for 90 days. rivaroxaban (XARELTO) 20 mg tablet TAKE 1 TABLET BY MOUTH EVERY DAY WITH DINNER cholestyramine (QUESTRAN) 4 gram packet TAKE 1 G BY MOUTH THREE TIMES DAILY NEEDED. Cyanocobalamin 1,000 mcg subl DISSOLVE 1 TABLET UNDER THE TONGUE ONCE DAILY. mecobalamin, vitamin B12, 1,000 mcg ODT Dissolve 1 tablet under the tongue once daily. acetaminophen (TYLENOL) 325 mg tablet Take 2 tablets by mouth every 6 hours as needed. cholecalciferol (VITAMIN D3) 1,000 unit tab tablet 1 tablet by ORAL/FEEDING TUBE route once daily. loratadine 10 mg cap Take 10 mg by mouth. (Patient not taking: Reported on 10/10/2022) calcium carbonate (CALCIUM ANTACID) 500 mg chew Take 2 tablets by mouth twice daily. SYNTHROID 25 mcg tablet Take 25 mcg by mouth once daily. No current facility-administered medications on file prior to visit. Social History Tobacco Use Smoking status: Never Smokeless tobacco: Never Vaping Use Vaping Use: Never used Substance Use Topics Alcohol use: Not Currently Drug use: Not Currently ALLERGIES Allergen Reactions Arithromycin [Azith* Rash Review of Systems: ENT: Denies + loss of hearing (bilat hearing aids), vertigo Vision: denies blurring vison, double vision/diplopia Cardiopulmonary: denies chest pain, palpitations Respiratory: denies shortness of breath GI: denies recent nausea, vomiting, diarrhea, constipation : denies incontinence Musculoskeletal: denies + weakness Neuro: denies tremors, loss of feeling, dizziness, seizure, blackout, paresthesia, facial paresthesia, facial weakness, + difficulty in speech (when taking decadron), slurring of words, dysarthria, dysphagia, memory loss, headache Physical Exam: 02/06/23 1122 BP: 118/68 Pulse: 64 Resp: 16 SpO2: 100% Weight: 91.7 kg (202 lb 3.2 oz) Patient is alert and in no distress. Dress is appropriate. Mood is appropriate Breathing appears regular and unstressed Neurologic examination: Cognitively intact. No deficits. No formal MMSE performed. CN: Pupils equal and reactive to light, extraocular movements intact with no nystagmus, face is symmetric with no facial droop, hearing decreased bilaterally R>L, symmetric evaluation of the soft palate, tongue is midline with no deviation, shoulder shrug is symmetric. Motor exam shows 5/5 strength symmetric through the upper and lower extremities in all groups tested with exception of below: MUSCLES Lower Extremity RIGHT LEFT Hip Flexion 4+/5 5/5 Hip Extension 4/5 4+/5 BiFem (Knee Flex) 4+/5 5/5 Quads (Knee Ext) 4+/5 5/5 Gastroc (Plantflx) 4+/5 5/5 TibAnt (Dorsiflx) 4/5 5/5 Sensory intact to light touch in all extremities. Decreased temperature sensation to BLE. Vibratory sensation is decreased to level of ankle in BLE. Pinprick sensation decreased to mid sanchez bilaterally. Intact in BUE. Deep tendon reflexes are decreased symmetrically at the biceps, brachioradialis, triceps, patella, and achilles bilaterally. Coordination: No dysmetria on finger to nose. No tremors noted. No drift seen. Gain unstable; uses rolator (improved since time of previous appointment). Labs/studies: XR Lumbar Spine 07/26/21: RESULT: Counting reference: Lumbosacral junction. For the purposes of this report, L4-5 is considered the level of the iliac crest and there are 5 lumbar-type vertebrae. Anatomic Variants: None. Mild dextroscoliosis. Posterior decompression and fusion L3-L5 using bilateral rods and pedicle screws. The hardware is intact. No evidence of loosening. Severe disc narrowing L2-3 and L3-4 compatible with severe degenerative disc disease. Milder degenerative disc disease in the upper lumbar spine. Normal SI joints. No other significant abnormality. Assessment/Plan: G62.9 Neuropathy (primary encounter diagnosis) R20.0, R20.2 Numbness and tingling R29.898 Right leg weakness M25.551 Pain in right hip Comment: Pt with pmh htn, hypothyroidism, lumbar fusion L3-5, and multiple myeloma with hx of radiation and chemotherapy currently following for n/t to both feet. Numbness/tingling possibly secondary to multiple myeloma and treatment, however, also possible lumbar etiology as well. He continues to follow with pain management for L spine injections and more recently treatment of R hip pain. Today, he reports possible improvement of numbness though notes paresthesias persist to both feet and ankles. Sensory exam is unchanged and does not appear that there has been any progression of peripheral neuropathy. However, exam notable for weakness throughout RLE (previously only noted in certain muscle groups). Discussed further evaluation with MRI brain or possible EMG/NCV, however, at this time he defers further testing and would like to attempt to relieve hip pain to determine if weakness improves. He will be starting steroid taper tomorrow and has upcoming appt with pain management after. Have asked that after treatment this upcoming week he notify the office if sx do not improve and will then proceed with further testing. For treatment of discomfort will continue Lyrica 25mg TID (SE with 50mg dose). Recommend continuing to use walker or cane both at home and when out of the house. He will follow up with Litzy Nelson PA-C in 3-4 months for medication and sx review or sooner should new or worsening sx occur. Kelin Madden APRN.ROBERTO I spent a total of 45 minutes on the date of the service which included preparing to see the patient, dior-ey-syny patient care, completing clinical documentation, obtaining and/or reviewing separately obtained history, performing a medically appropriate examination, counseling and educating the patient/family/caregiver, and ordering medications, tests, or procedures. PDMP website checked and validated. All prescriptions have been APPROPRIATELY filled. No suspicious activity was identified. February 06, 2023 Kelin Madden APRN.DU[employer]AYER HELPER documented in this encounter [facility] 01-29-2023 Nurse Note Additional intake questions: Has the patient had fever, nausea, vomiting, diarrhea, constipation, fatigue for > 1 week? No Does the patient have a decreased appetite? No Does patient want to see a Director Of Music? No (yes to any of above refer patient to schedulers for dietitian appointment) ) Does patient have any new or increased numbness or tingling of extremities? No Is patient interested in fertility information? No Does patient need any prescription refills? No Does patient have an advanced directive in place? No documented in this encounter [facility] 01-29-2023 History of Present illness Narrative Images from the original note were not included. [facility] PATIENT NAME: Fidelina Nolan CC: f/u standard risk t(11;14) myeloma. Baseline assessment on initial diagnosis date 01/2020 IMWG criteria, [place] Journal of Haematology 121: 749-57, 2003, update in: Orion et al. Leukemia 20: 1467-73, 2006 and at IMW meeting Tammi 2010 Symptomatic multiple myeloma [place] light chain Related Organ or Tissue Involvement (CRAB) or other Myeloma Defining Event (MDE): Renal insufficiency, eGFR <40 ml/min or serum creatinine >2mg/dL, result of biopsy confirmation (if relationship to MM in doubt): GFR 36, child care group leader 1.8, Bone disease: At least one lytic bone lesion on XR or CT if BMPC >=10%, at least 2 bone lesions on XR or CT if BMPC<10%, location of lytic lesion(s): sternum, left 6th rib, right acetabulum; mild hypercalcemia (Ca 10.4) Myeloma FISH panel: t(11;14), loss of 1p Cytogenetics: 46,XY LDH: 180 ISS stage: II (albumin < 3,5g/dL OR b2M 3,5-5,4mg/L) RISS stage: II Monoclonal proteins at diagnosis: Serum M-spike: 0 gm/dL, Involved serum free light chains: 1198 mg/L and Uninvolved serum free light chains: 8.3 mg/L Total immunoglobulins at diagnosis: IgG 850 mg/dL, IgA 78 mg/dL, IgM 29mg/dL Bone marrow plasma cell infiltration: 20% Systemic treatment and disease course -01/2020- 07/18/2020: VRd. Standard dosing, V 1.3, R 25 mg, dex 20 mg. R 25 mg given for 2 weeks with first cycle then decreased to 15 mg starting second cycle. Grade 3 thrombocytopenia with second cycle of V, day 15 held. BR: VGPR by light chain criteria after one cycle. Appearance of a low level IgG kappa M protein in Mar and a faint lambda in April, will watch. AEs: insomnia on days of dex, possibly worsening diarrhea with R. -07/2020: R 15 mg maintenance. BR: VGPR. AE: Diarrhea and urgency. -01/05/2021- present: Biochemical relapse. PVd. V 1 mg/m2 and d 20 mg days 1,8,15, P 2 mg daily for 21 days every 28 days. BR: Serologic CR. AE: grade 4 neutropenia due to pom, reduced to 1 mg after first cycle. Grade 1 neuropathy, reduced V to every other week in March and dose to 0.7 in June 2021. V stopped in December 2021 due to neuropathy although unlikely to be related. Dex reduced to 8 mg at same time. Local treatments (radiation, surgery, kyphoplasty) XRT: Right pelvis (acetabulum), 2000 cGy in [address] Cedeno. HISTORY OF THE PRESENT ILLNESS: Mr. Nolan continues to do well. Taking pom as instructed. right hip pain, chronic. PMH: OA HTN DM2 Hypothyroidism Skin cancer (unknown type) PSH Skin cancer removal CURRENT MEDICATIONS: Current Outpatient Medications Medication Sig pomalidomide (POMALYST) 1 mg capsule TAKE 1 CAPSULE ONCE DAILY FOR 21 DAYS ON WITH 7 DAYS OFF pregabalin (LYRICA) 25 mg capsule Take 1 capsule by mouth three times daily for 90 days. rivaroxaban (XARELTO) 20 mg tablet TAKE 1 TABLET BY MOUTH EVERY DAY WITH DINNER cholestyramine (QUESTRAN) 4 gram packet TAKE 1 G BY MOUTH THREE TIMES DAILY NEEDED. Cyanocobalamin 1,000 mcg subl DISSOLVE 1 TABLET UNDER THE TONGUE ONCE DAILY. mecobalamin, vitamin B12, 1,000 mcg ODT Dissolve 1 tablet under the tongue once daily. acetaminophen (TYLENOL) 325 mg tablet Take 2 tablets by mouth every 6 hours as needed. cholecalciferol (VITAMIN D3) 1,000 unit tab tablet 1 tablet by ORAL/FEEDING TUBE route once daily. loratadine 10 mg cap Take 10 mg by mouth. (Patient not taking: Reported on 10/10/2022) calcium carbonate (CALCIUM ANTACID) 500 mg chew Take 2 tablets by mouth twice daily. SYNTHROID 25 mcg tablet Take 25 mcg by mouth once daily. No current facility-administered medications for this visit. ALLERGIES Allergen Reactions Arithromycin [Azith* Rash FH: no FH of cancer Social History Tobacco Use Smoking status: No Substance Use Topics Alcohol use: No Drug use: No Retired. Lives in the [place] area with . REVIEW OF SYSTEMS Ten systems reviewed and negative except for those recorded in the HPI. PHYSICAL EXAMINATION: BP 145/50 Pulse (!) 57 Temp 36.6 C (97.8 F) (Temporal) Resp 22 Ht 180.3 cm (5' 10.98") Wt 91.3 kg (201 lb 4.8 oz) SpO2 98% BMI 28.09 kg/m General appearance: Well appearing, alert, in no acute distress, well-hydrated, well nourished. 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 More or less stable light chains. Hematology: CBC with anemia, likely myeloma related, improved anemia. B12 was low normal, on B12 replacement. Iron panel looked okay. Thrombocytopenia due to pom. 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 Stable CKD stage 3. Infectious disease: 2)Immunizations: Yearly influenza vaccine. Musculoskeletal: hip pain due to myeloma. S/p XRT to hip, pain has resolved. Now s/p laminectomy for spine DJD. Bisphoshonates: has completed his course of ZA. Venous thromboembolism risk: rivaroxaban for soleal vein DVT and while on IMiDs. off aspirin. GI: Diarrhea: chronic issue, unpredictable pattern, may be exacerbated by R. Much improved while on pom, takes cholestyramine. control counseling: Performed, patient knows that two reliable methods of control are mandated while on IMiDs and also recommended for any other antimyeloma therapy except for single agent steroids and patient complies. Skin: SCC removed, needs close follow up with derm. Next follow-up in April. Monthly labs locally. The patient's questions were answered to satisfaction. (Elements copied from my note dated 10/30/22, have been reviewed and updated where appropriate, and all reflect current assessment and medical decision making during today's encounter, January 29, 2023) I spent a total of 40 minutes on the date of the service which included preparing to see the patient, [id number] patient care, completing clinical documentation, obtaining and/or reviewing separately obtained history, performing a medically appropriate examination, counseling and educating the patient/family/caregiver, ordering medications, tests, or procedures and communicating results to the patient/family/caregiver. Tristen Raphael MD documented in this encounter [facility] 11-11-2022 Miscellaneous Notes Discussed with patient's -No concerns. Lung nodules are likely sites of resolved infections, a few ones look different and are small, will follow up on them in [address] scan. Old lesions from myeloma.. Jasmina Arita RN documented in this encounter [facility] 11-05-2022 History of Present illness Narrative Radiology Service Progress Note PATIENT NAME: Fidelina Nolan DATE OF SERVICE: November 05, 2022 TIME: 12:25 PM PATIENT IDENTITY VERIFICATION COMPLETED USING TWO (2) IDENTIFIERS: Name and Date of confirmed by patient verbally. FALL SCREENING: Has the patient had 2 falls in the last year or 1 fall with injury or currently using an Ambulatory Assistive Device (Walker, Cane, Wheelchair, Crutches, etc.)? No PATIENT GENDER DATA: Male PATIENT RELEVANT IMPLANT DATA REVIEWED: Yes RADIOLOGY DEPARTMENT: CT; Exam(s) Completed: Chest PERIPHERAL IV DATA: Not applicable SIGNED BY: RT Lisa(R) November 05, 2022 12:25 PM documented in this encounter [facility] 10-30-2022 History of Present illness Narrative Radiology Service Progress Note PATIENT NAME: Fidelina Nolan DATE OF SERVICE: October 30, 2022 TIME: 2:22 PM PATIENT IDENTITY VERIFICATION COMPLETED USING TWO (2) IDENTIFIERS: Name and Date of confirmed by patient verbally. FALL SCREENING: Has the patient had 2 falls in the last year or 1 fall with injury or currently using an Ambulatory Assistive Device (Walker, Cane, Wheelchair, Crutches, etc.)? No PATIENT GENDER DATA: Male PATIENT RELEVANT IMPLANT DATA REVIEWED: Not Applicable RADIOLOGY DEPARTMENT: General X-ray: Exam(s) Completed: Rib X-Ray: Right PERIPHERAL IV DATA: Not applicable SIGNED BY: RT Jayce(R) October 30, 2022 2:22 PM documented in this encounter [facility] 10-30-2022 History of Present illness Narrative Images from the original note were not included. [facility] PATIENT NAME: Fidelina Nolan CC: f/u standard risk t(11;14) myeloma. Baseline assessment on initial diagnosis date 01/2020 IMWG criteria, [place] Journal of Haematology 121: 749-57, 2003, update in: Pravinie et al. Leukemia 20: 1467-73, 2006 and at IMW meeting Tammi 2010 Symptomatic multiple myeloma [place] light chain Related Organ or Tissue Involvement (CRAB) or other Myeloma Defining Event (MDE): Renal insufficiency, eGFR <40 ml/min or serum creatinine >2mg/dL, result of biopsy confirmation (if relationship to MM in doubt): GFR 36, child care group leader 1.8, Bone disease: At least one lytic bone lesion on XR or CT if BMPC >=10%, at least 2 bone lesions on XR or CT if BMPC<10%, location of lytic lesion(s): sternum, left 6th rib, right acetabulum; mild hypercalcemia (Ca 10.4) Myeloma FISH panel: t(11;14), loss of 1p Cytogenetics: 46,XY LDH: 180 ISS stage: II (albumin < 3,5g/dL OR b2M 3,5-5,4mg/L) RISS stage: II Monoclonal proteins at diagnosis: Serum M-spike: 0 gm/dL, Involved serum free light chains: 1198 mg/L and Uninvolved serum free light chains: 8.3 mg/L Total immunoglobulins at diagnosis: IgG 850 mg/dL, IgA 78 mg/dL, IgM 29mg/dL Bone marrow plasma cell infiltration: 20% Systemic treatment and disease course -01/2020- 07/18/2020: VRd. Standard dosing, V 1.3, R 25 mg, dex 20 mg. R 25 mg given for 2 weeks with first cycle then decreased to 15 mg starting second cycle. Grade 3 thrombocytopenia with second cycle of V, day 15 held. BR: VGPR by light chain criteria after one cycle. Appearance of a low level IgG kappa M protein in Mar and a faint lambda in April, will watch. AEs: insomnia on days of dex, possibly worsening diarrhea with R. -07/2020: R 15 mg maintenance. BR: VGPR. AE: Diarrhea and urgency. -01/05/2021- present: Biochemical relapse. PVd. V 1 mg/m2 and d 20 mg days 1,8,15, P 2 mg daily for 21 days every 28 days. BR: Serologic CR. AE: grade 4 neutropenia due to pom, reduced to 1 mg after first cycle. Grade 1 neuropathy, reduced V to every other week in March and dose to 0.7 in June 2021. V stopped in December 2021 due to neuropathy although unlikely to be related. Dex reduced to 8 mg at same time. Local treatments (radiation, surgery, kyphoplasty) XRT: Right pelvis (acetabulum), 2000 cGy in [address] Cedeno. HISTORY OF THE PRESENT ILLNESS: Mr. Nolan continues to do well. Taking pom as instructed. Had a good time in [facility]. Fell recently and had a laceration to his right forearm. Reports right hip pain, chronic. New right rib pain at nipple area, does not recall trauma to that area. PMH: OA HTN DM2 Hypothyroidism Skin cancer (unknown type) PSH Skin cancer removal CURRENT MEDICATIONS: Current Outpatient Medications Medication Sig pregabalin (LYRICA) 25 mg capsule Take 1 capsule by mouth three times daily for 90 days. pomalidomide (POMALYST) 1 mg capsule TAKE 1 CAPSULE ONCE DAILY FOR 21 DAYS ON WITH 7 DAYS OFF rivaroxaban (XARELTO) 20 mg tablet TAKE 1 TABLET BY MOUTH EVERY DAY WITH DINNER acyclovir (ZOVIRAX) 400 mg tablet Take 1 tablet by mouth every 12 hours. cholestyramine (QUESTRAN) 4 gram packet TAKE 1 G BY MOUTH THREE TIMES DAILY NEEDED. Cyanocobalamin 1,000 mcg subl DISSOLVE 1 TABLET UNDER THE TONGUE ONCE DAILY. guaiFENesin (MUCINEX) 600 mg 12 hr tablet Take 2 tablets by mouth twice daily. benzonatate (TESSALON PERLE) 100 mg capsule Take 1 capsule by mouth every 6 hours as needed for cough. mecobalamin, vitamin B12, 1,000 mcg ODT Dissolve 1 tablet under the tongue once daily. acetaminophen (TYLENOL) 325 mg tablet Take 2 tablets by mouth every 6 hours as needed. cholecalciferol (VITAMIN D3) 1,000 unit tab tablet 1 tablet by ORAL/FEEDING TUBE route once daily. loratadine 10 mg cap Take 10 mg by mouth. (Patient not taking: Reported on 10/10/2022) calcium carbonate (CALCIUM ANTACID) 500 mg chew Take 2 tablets by mouth twice daily. SYNTHROID 25 mcg tablet Take 25 mcg by mouth once daily. No current facility-administered medications for this visit. ALLERGIES Allergen Reactions Arithromycin [Azith* Rash FH: no FH of cancer Social History Tobacco Use Smoking status: No Substance Use Topics Alcohol use: No Drug use: No Retired. Lives in the [facility] with . REVIEW OF SYSTEMS Ten systems reviewed and negative except for those recorded in the HPI. PHYSICAL EXAMINATION: BP 127/60 Pulse 72 Temp 37.3 C (99.2 F) (Oral) Resp 16 Wt 94.2 kg (207 lb 11.2 oz) SpO2 100% BMI 28.97 kg/m General appearance: Well appearing, alert, in no acute distress, well-hydrated, well nourished. 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 serologic CR. Hematology: CBC with anemia, likely myeloma related, improved anemia. B12 was low normal, on B12 replacement. Iron panel looked okay. 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 Mild hypercalcemia as well on prior labs, resolved. 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 Infectious disease: 1)Acyclovir. 2)Immunizations: Yearly influenza vaccine. Musculoskeletal: hip pain due to myeloma. S/p XRT to hip, pain has resolved. Now s/p laminectomy for spine DJD, slow recovery, muscle/physical deconditioning, improved. 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 Right rib pain, X ray ordered. Bisphoshonates: has completed his course of ZA. Venous thromboembolism risk: rivaroxaban for soleal vein DVT and while on IMiDs. off aspirin. GI: Diarrhea: chronic issue, unpredictable pattern, may be exacerbated by R. Much improved while on pom. control counseling: Performed, patient knows that two reliable methods of control are mandated while on IMiDs and also recommended for any other antimyeloma therapy except for single agent steroids and patient complies. Skin: SCC removed, needs close follow up with derm. Next follow-up in January. Monthly labs locally. The patient's questions were answered to satisfaction. (Elements copied from my note dated 04/24/2023, have been reviewed and updated where appropriate, and all reflect current assessment and medical decision making during today's encounter, October 30, 2022) I spent a total of 40 minutes on the date of the service which included preparing to see the patient, [id number] patient care, completing clinical documentation, obtaining and/or reviewing separately obtained history, performing a medically appropriate examination, counseling and educating the patient/family/caregiver, ordering medications, tests, or procedures and communicating results to the patient/family/caregiver. Tristen Raphael MD documented in this encounter [facility] 10-30-2022 Nurse Note Additional intake questions: Has the patient had fever, nausea, vomiting, diarrhea, constipation, fatigue for > 1 week? Yes, fatigue Does the patient have a decreased appetite? No Does patient want to see a Director Of Music? No (yes to any of above refer patient to schedulers for dietitian appointment) ) Does patient have any new or increased numbness or tingling of extremities? Yes, Rt hand Is patient interested in fertility information? NA Does patient need any prescription refills? No Does patient have an advanced directive in place? No, will bring documented in this encounter [facility] 10-21-2022 History of Present illness Narrative Radiology Service Progress Note PATIENT NAME: Fidelina Nolan DATE OF SERVICE: October 21, 2022 TIME: 12:14 PM PATIENT IDENTITY VERIFICATION COMPLETED USING TWO (2) IDENTIFIERS: Name and Date of confirmed by patient verbally. FALL SCREENING: Has the patient had 2 falls in the last year or 1 fall with injury or currently using an Ambulatory Assistive Device (Walker, Cane, Wheelchair, Crutches, etc.)? Yes, Patient High Risk for Falls What interventions were put in place to prevent falls during this visit? Increased Observations by Caregivers PATIENT GENDER DATA: Male PATIENT RELEVANT IMPLANT DATA REVIEWED: Not Applicable RADIOLOGY DEPARTMENT: General X-ray: Exam(s) Completed: Pelvis X-Ray: Pelvis with Hip Bilateral PERIPHERAL IV DATA: Not applicable SIGNED BY: RT Juan C(R) October 21, 2022 12:14 PM documented in this encounter [facility] 10-10-2022 History of Present illness Narrative Images from the original note were not included. [facility] [place] Follow-up Visit Follow-up note October 10, 2022 HPI: Mr. Nolan presents today for a follow-up visit. Per his previous visit on 04/18/22: G62.9 Neuropathy (primary encounter diagnosis) R20.0, R20.2 Numbness and tingling Comment: Patient previously seen for numbness and tingling to both feet with radiation up to the level of the knee. History of htn, hypothyroidism, lumbar fusion L3-5, and multiple myeloma with hx of radiation and chemotherapy. As previously noted, numbness/tingling with possible relation to multiple myeloma and treatment, however, also question if there is possible lumbar etiology as well. At time of visit today he notes an improvement in symptoms in his feet. States tingling has been better. Now only reporting pain to bilateral calves. Denies lumbar pain. Of note, he was recently seen at [facility] ED for BLE edema where US DVT was completed and he was ultimately diagnosed with lymphedema. He was instructed to obtain compression stockings and will be going for a fitting after appointment today. He is currently taking Lyrica 25mg BID without SE or concerns (SE with increased dose). RF provided today. Recommend continuing to use walker or cane both at home and when out of the house. He will follow up in July before leaving for [place] for the winter. May still consider follow up with spine medicine as well if symptoms change or worsen. States he saw a pain specialist in [facility]; Dr. Woods. Having pain in his legs, hip, and low back. States he feels good when he is sitting. Will be having lumbar injections to determine if this will help his low back. Will also be getting a hip/pelvis XR d/t inconsistent R hip pain. Some days can hardly walk. Did have radiation to the R thigh. Was also instructed by pain that he may to take one additional pill of the Lyrica. Uncertain if feet feel better or worse. States he is able to walk. When he gets up it is harder. Did go down a flight of stairs recently with his cane. Had some low back pain when walking. [place] like he was having a spasm. Improved upon siting. Unsure if peripheral neuropathy is better. Has not worsened. When reclining, the symptoms are gone but when sitting up it is still present. Not debilitating. Still having some swelling in BLE around ankle. L is not as bad as R. When traveling he wore compression stocking on RLE. Taking Lyrica at 8am and 8pm. PAST MEDICAL HISTORY Diagnosis Date Hypertension Hypothyroid PAST SURGICAL HISTORY Procedure Laterality Date BACK SURGERY HX 07/11/2020 L3-5 CATARACT EXTRACTION HX Right 2013 PAST SURGICAL HISTORY OF 1990 spine surgery Current Outpatient Medications on File Prior to Visit Medication Sig Cyanocobalamin 1,000 mcg subl DISSOLVE 1 TABLET UNDER THE TONGUE ONCE DAILY. pomalidomide (POMALYST) 1 mg capsule TAKE 1 CAPSULE ONCE DAILY FOR 21 DAYS ON WITH 7 DAYS OFF pregabalin (LYRICA) 25 mg capsule Take 1 capsule by mouth twice daily for 90 days. rivaroxaban (XARELTO) 20 mg tablet TAKE 1 TABLET BY MOUTH EVERY DAY WITH DINNER acyclovir (ZOVIRAX) 400 mg tablet Take 1 tablet by mouth every 12 hours. cholestyramine (QUESTRAN) 4 gram packet TAKE 1 G BY MOUTH THREE TIMES DAILY NEEDED. guaiFENesin (MUCINEX) 600 mg 12 hr tablet Take 2 tablets by mouth twice daily. benzonatate (TESSALON PERLE) 100 mg capsule Take 1 capsule by mouth every 6 hours as needed for cough. mecobalamin, vitamin B12, 1,000 mcg ODT Dissolve 1 tablet under the tongue once daily. acetaminophen (TYLENOL) 325 mg tablet Take 2 tablets by mouth every 6 hours as needed. cholecalciferol (VITAMIN D3) 1,000 unit tab tablet 1 tablet by ORAL/FEEDING TUBE route once daily. loratadine 10 mg cap Take 10 mg by mouth. calcium carbonate (CALCIUM ANTACID) 500 mg chew Take 2 tablets by mouth twice daily. SYNTHROID 25 mcg tablet Take 25 mcg by mouth once daily. No current facility-administered medications on file prior to visit. Social History Tobacco Use Smoking status: Never Smokeless tobacco: Never Vaping Use Vaping Use: Never used Substance Use Topics Alcohol use: Not Currently Drug use: Not Currently ALLERGIES Allergen Reactions Arithromycin [Azith* Rash Review of Systems: Constitutional: denies fever, weight loss, loss of appetite ENT: Denies + loss of hearing (bilat hearing aids), vertigo Vision: denies blurring vison, double vision/diplopia Cardiopulmonary: denies chest pain, palpitations Respiratory: denies shortness of breath GI: denies recent nausea, vomiting, + diarrhea, constipation : denies incontinence Musculoskeletal: denies + weakness Back/spine: denies low back, mid back, or cervical pains Neuro: denies tremors, loss of feeling, dizziness, seizure, blackout, paresthesia, facial paresthesia, facial weakness, + difficulty in speech (when taking decadron), slurring of words, dysarthria, dysphagia, memory loss, headache Physical Exam: 10/10/22 1125 BP: 139/55 Pulse: (!) 54 Resp: 16 Temp: 36.9 C (98.4 F) SpO2: 97% Weight: 95 kg (209 lb 6.4 oz) Patient is alert and in no distress. Dress is appropriate. Mood is appropriate Breathing appears regular and unstressed Neurologic examination: Cognitively intact. No deficits. No formal MMSE performed. CN: Pupils equal and reactive to light, extraocular movements intact with no nystagmus, face is symmetric with no facial droop, hearing decreased bilaterally R>L, symmetric evaluation of the soft palate, tongue is midline with no deviation, shoulder shrug is symmetric. Motor exam shows 5/5 strength symmetric through the upper and lower extremities in all groups tested with exception of below: MUSCLES Lower Extremity RIGHT LEFT Hip Flexion 4+/5 5/5 Hip Extension 4/5 4+/5 BiFem (Knee Flex) 4+/5 5/5 Quads (Knee Ext) 5/5 5/5 Gastroc (Plantflx) 5/5 5/5 TibAnt (Dorsiflx) 4/5 5/5 Sensory intact to light touch in all extremities. Decreased temperature sensation to BLE. Vibratory sensation is decreased to level of ankle in BLE. Pinprick sensation decreased to mid sanchez bilaterally. Intact in BUE. Deep tendon reflexes are decreased symmetrically at the biceps, brachioradialis, triceps, patella, and achilles bilaterally. Coordination: No dysmetria on finger to nose. No tremors noted. No drift seen. Gain unstable; uses rolator. Labs/studies: Component Latest Ref Rng & Units 07/31/2022 10/07/2022 WBC 3.70 - 11.00 k/uL 6.27 RBC 4.20 - 6.00 m/uL 3.94 (L) Hemoglobin 13.0 - 17.0 g/dL 13.4 Hematocrit 39.0 - 51.0 % 39.5 MCV 80.0 - 100.0 fL 100.3 (H) MCH 26.0 - 34.0 pg 34.0 MCHC 30.5 - 36.0 g/dL 33.9 RDW-CV 11.5 - 15.0 % 15.3 (H) Platelet Count 150 - 400 k/uL 196 MPV 9.0 - 12.7 fL 9.9 Neut% % 40.5 Abs Neut (ANC) 1.45 - 7.50 k/uL 2.54 Lymph% % 43.5 Abs Lymph 1.00 - 4.00 k/uL 2.73 Kern% % 9.1 Abs Kern <0.87 k/uL 0.57 Eosin% % 3.7 Abs Eosin <0.46 k/uL 0.23 Baso% % 1.9 Abs Baso <0.11 k/uL 0.12 (H) Immature Gran % % 1.3 IMMATURE GRANS (ABS) <0.10 k/uL 0.08 NRBC /100 WBC 0.0 Absolute nRBC <0.01 k/uL <0.01 DTYPE Auto Protein, Total 6.3 - 8.0 g/dL 6.3 Albumin 3.9 - 4.9 g/dL 4.0 Calcium 8.5 - 10.2 mg/dL 9.2 Bilirubin, Total 0.2 - 1.3 mg/dL 0.4 Alkaline Phosphatase 38 - 113 U/L 49 AST 14 - 40 U/L 17 ALT 10 - 54 U/L 22 Glucose 74 - 99 mg/dL 101 (H) BUN 9 - 24 mg/dL 25 (H) Creatinine 0.73 - 1.22 mg/dL 1.53 (H) Sodium 136 - 144 mmol/L 140 Potassium 3.7 - 5.1 mmol/L 4.4 Chloride 97 - 105 mmol/L 108 (H) CO2 22 - 30 mmol/L 23 Anion Gap 9 - 18 mmol/L 9 eGFR >=60 mL/min/1.73m 45 (L) Hemoglobin A1C 4.3 - 5.6 % 5.4 Estimated Average Glucose mg/dL 108 XR Lumbar Spine 07/26/21: RESULT: Counting reference: Lumbosacral junction. For the purposes of this report, L4-5 is considered the level of the iliac crest and there are 5 lumbar-type vertebrae. Anatomic Variants: None. Mild dextroscoliosis. Posterior decompression and fusion L3-L5 using bilateral rods and pedicle screws. The hardware is intact. No evidence of loosening. Severe disc narrowing L2-3 and L3-4 compatible with severe degenerative disc disease. Milder degenerative disc disease in the upper lumbar spine. Normal SI joints. No other significant abnormality. Assessment/Plan: G62.9 Neuropathy (primary encounter diagnosis) Comment: Pt with hx of n/t to both feet with radiation to level of the knee. History of htn, hypothyroidism, lumbar fusion L3-5, and multiple myeloma with hx of radiation and chemotherapy. As previously noted, numbness/tingling with possible relation to multiple myeloma and treatment, however, also question if there is possible lumbar etiology as well. At time of last appointment tingling had improved and no reported lumbar pain, however, today he reports significant intermittent lumbar pain as well as R hip pain. He is currently following with Dr. Mejia with pain management and will be receiving lumbar injections in the upcoming weeks. Exam today remains unchanged and no worsening of peripheral neuropathy. He is currently taking Lyrica 25mg BID without SE or concerns (SE with 50mg dose). He does report that it was recommended he increase his Lyrica dose to TID to avoid SE with possible improvement in pain. Agree with trial of 25mg TID. Reviewed SE and importance of notifying office if SE occur. Updated lab work reviewed from 08/12. Recommend continuing to use walker or cane both at home and when out of the house. Kelin Madden APRN.CNP I spent a total of 35 minutes on the date of the service which included preparing to see the patient, [id number] patient care, completing clinical documentation, obtaining and/or reviewing separately obtained history, performing a medically appropriate examination, counseling and educating the patient/family/caregiver, and ordering medications, tests, or procedures. documented in this encounter [facility] 09-03-2022 Miscellaneous Notes Diagnosis code c90.00 given and frequency of monthly given Kelin Powell RN Images from the original note were not included. [place] is calling Tristen Raphael MD today regarding (Clarification on order) for Fidelina Nolan Patient has been identified by name and birthdate. Pt is currently at lab with a list of orders. Lab is requesting clarification of lab order frequency and diagnosis code. Requesting response back: [phone] Perry Perry September 03, 2022 documented in this encounter [facility] 08-20-2022 Miscellaneous Notes PDMP website checked and validated. All prescriptions have been APPROPRIATELY filled. No suspicious activity was identified. August 20, 2022 Kelin Madden APRN.CNP Prescription sent to [place] per patient request. Prescription was not filled in [place] per PDMP. Patient's calls and states that they were unable to fill prescription that was sent to [facility] due to not being able to fill medication yesterday. Patient and are already in [place] for 7 weeks and were unable to get prescription. asking if prescription can be sent to [facility] in [place], [place]. states that pharmacist Chanell was going to call [facility] to have other one cancelled. Please review and advise, Madina Retana RN documented in this encounter [facility] 08-13-2022 Miscellaneous Notes Recent lab work reviewed. PDMP website checked and validated. All prescriptions have been APPROPRIATELY filled. No suspicious activity was identified. 90 day supply given as patient will be out of state. Pt to schedule follow up appointment upon return. August 13, 2022 Kelin Madden APRN.DUCT LAYER HELPER Patient Delores calling asking for Lyrica rx, leaving 08/15/2022 for [place], [place] not back to [place] until October 07, 2022. Patient asking for enough refills to get until they come back to [place]. Please advise Patient has been identified by name and date of : Spouse phones for refill(s): Requested Prescriptions Pending Prescriptions Disp Refills pregabalin (LYRICA) 25 mg capsule 60 capsule Sig: Take 1 capsule by mouth twice daily for 90 days. Date of last office visit in primary care: 04/18/2022, has appt 10/10/2022 Last 2 Encounter Wt Readings: Date: Wt: 07/31/2022 94.7 kg (208 lb 11.2 oz) 04/24/2022 92.7 kg (204 lb 5.9 oz) Previous labs/tests for medication: Not applicable Please advise. Thank you. Ellen Andrade LPN documented in this encounter [facility] 08-12-2022 Miscellaneous Notes Patient is almost out if medication. Patient's is asking to be filled and be sent to pharmacy, going out of town . Delores is asking for a call back to make sure the medication was sent to pharmacy [phone] documented in this encounter [facility] 08-12-2022 Miscellaneous Notes Patient is almost out of medication. Patient's is asking for a refill tomorrow due to leaving out of town . documented in this encounter [facility] 08-09-2022 Miscellaneous Notes Left a VM for patient and relayed the following message, per Dr. Raphael: Not refilling this. Should be PCP. Pt is calling requesting a refill on SYNTHROID 25 mcg tablet. Please send to [facility] in [place]. Pt is requesting a 90 day supply since they are leaving for a trip for 7 weeks documented in this encounter [facility] 07-31-2022 History of Present illness Narrative Images from the original note were not included. [facility] PATIENT NAME: Fidelina Nolan CC: f/u standard risk t(11;14) myeloma. Baseline assessment on initial diagnosis date 01/2020 IMWG criteria, [place] Journal of Haematology 121: 749-57, 2003, update in: Durie et al. Leukemia 20: 1467-73, 2006 and at IMW meeting Tammi 2010 Symptomatic multiple myeloma [place] light chain Related Organ or Tissue Involvement (CRAB) or other Myeloma Defining Event (MDE): Renal insufficiency, eGFR <40 ml/min or serum creatinine >2mg/dL, result of biopsy confirmation (if relationship to MM in doubt): GFR 36, child care group leader 1.8, Bone disease: At least one lytic bone lesion on XR or CT if BMPC >=10%, at least 2 bone lesions on XR or CT if BMPC<10%, location of lytic lesion(s): sternum, left 6th rib, right acetabulum; mild hypercalcemia (Ca 10.4) Myeloma FISH panel: t(11;14), loss of 1p Cytogenetics: 46,XY LDH: 180 ISS stage: II (albumin < 3,5g/dL OR b2M 3,5-5,4mg/L) RISS stage: II Monoclonal proteins at diagnosis: Serum M-spike: 0 gm/dL, Involved serum free light chains: 1198 mg/L and Uninvolved serum free light chains: 8.3 mg/L Total immunoglobulins at diagnosis: IgG 850 mg/dL, IgA 78 mg/dL, IgM 29mg/dL Bone marrow plasma cell infiltration: 20% Systemic treatment and disease course -01/2020- 07/18/2020: VRd. Standard dosing, V 1.3, R 25 mg, dex 20 mg. R 25 mg given for 2 weeks with first cycle then decreased to 15 mg starting second cycle. Grade 3 thrombocytopenia with second cycle of V, day 15 held. BR: VGPR by light chain criteria after one cycle. Appearance of a low level IgG kappa M protein in Mar and a faint lambda in April, will watch. AEs: insomnia on days of dex, possibly worsening diarrhea with R. -07/2020: R 15 mg maintenance. BR: VGPR. AE: Diarrhea and urgency. -01/05/2021- present: Biochemical relapse. PVd. V 1 mg/m2 and d 20 mg days 1,8,15, P 2 mg daily for 21 days every 28 days. BR: Serologic CR. AE: grade 4 neutropenia due to pom, reduced to 1 mg after first cycle. Grade 1 neuropathy, reduced V to every other week in March and dose to 0.7 in June 2021. V stopped in December 2021 due to neuropathy although unlikely to be related. Dex reduced to 8 mg at same time. Local treatments (radiation, surgery, kyphoplasty) XRT: Right pelvis (acetabulum), 2000 cGy in [address] Cedeno. HISTORY OF THE PRESENT ILLNESS: Mr. Nolan continues to do well. Taking pom and dex as instructed. Going to [facility] this month. Insomnia on days of dex. 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 PMH: OA HTN DM2 Hypothyroidism Skin cancer (unknown type) PSH Skin cancer removal CURRENT MEDICATIONS: Current Outpatient Medications Medication Sig Cyanocobalamin 1,000 mcg subl DISSOLVE 1 TABLET UNDER THE TONGUE ONCE DAILY. acyclovir (ZOVIRAX) 400 mg tablet Take 1 tablet by mouth every 12 hours. cholestyramine (QUESTRAN) 4 gram packet TAKE 1 G BY MOUTH THREE TIMES DAILY NEEDED. pomalidomide (POMALYST) 1 mg capsule TAKE 1 CAPSULE ONCE DAILY FOR 21 DAYS ON WITH 7 DAYS OFF pregabalin (LYRICA) 25 mg capsule Take 1 capsule by mouth twice daily for 90 days. rivaroxaban (XARELTO) 20 mg tablet TAKE 1 TABLET BY MOUTH EVERY DAY WITH DINNER dexAMETHasone (DECADRON) 4 mg tablet Take 2 pills weekly (3 weeks/1 week off) guaiFENesin (MUCINEX) 600 mg 12 hr tablet Take 2 tablets by mouth twice daily. benzonatate (TESSALON PERLE) 100 mg capsule Take 1 capsule by mouth every 6 hours as needed for cough. mecobalamin, vitamin B12, 1,000 mcg ODT Dissolve 1 tablet under the tongue once daily. acetaminophen (TYLENOL) 325 mg tablet Take 2 tablets by mouth every 6 hours as needed. cholecalciferol (VITAMIN D3) 1,000 unit tab tablet 1 tablet by ORAL/FEEDING TUBE route once daily. loratadine 10 mg cap Take 10 mg by mouth. calcium carbonate (CALCIUM ANTACID) 500 mg chew Take 2 tablets by mouth twice daily. SYNTHROID 25 mcg tablet Take 25 mcg by mouth once daily. No current facility-administered medications for this visit. ALLERGIES Allergen Reactions Arithromycin [Azith* Rash FH: no FH of cancer Social History Tobacco Use Smoking status: No Substance Use Topics Alcohol use: No Drug use: No Retired. Lives in the [place] area with . REVIEW OF SYSTEMS Ten systems reviewed and negative except for those recorded in the HPI. PHYSICAL EXAMINATION: BP 142/53 Pulse 70 Temp 36.2 C (97.1 F) (Temporal) Resp 18 Wt 94.7 kg (208 lb 11.2 oz) SpO2 99% BMI 29.11 kg/m General appearance: Well appearing, alert, in no acute distress, well-hydrated, well nourished. Skin: Skin color, texture, turgor normal, no suspicious rashes or lesions Head: Normocephalic, atraumatic Eyes: Anicteric sclerae. 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 Will stop dex at this time and continue single agent pom. Hematology: CBC with anemia, likely myeloma related, improved anemia. B12 was low normal, on B12 replacement. Iron panel looked okay. 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 Mild hypercalcemia as well on prior labs, resolved. 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 Infectious disease: 1)Acyclovir. 2)Immunizations: Yearly influenza vaccine. Musculoskeletal: hip pain due to myeloma. S/p XRT to hip, pain has resolved. Now s/p laminectomy for spine DJD, slow recovery, muscle/physical deconditioning, improved. 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 Bisphoshonates: has completed his course of ZA. Venous thromboembolism risk: rivaroxaban for soleal vein DVT and while on IMiDs. off aspirin. GI: Diarrhea: chronic issue, unpredictable pattern, may be exacerbated by R. Much improved while on pom. control counseling: Performed, patient knows that two reliable methods of control are mandated while on IMiDs and also recommended for any other antimyeloma therapy except for single agent steroids and patient complies. Skin: SCC removed, needs close follow up with derm. Next follow-up in October. Monthly labs locally. The patient's questions were answered to satisfaction. I spent 40 minutes in the visit, with more than 50% of the total [id number] time of the visit in counseling / coordination of care. (Elements copied from my note dated 04/24/2022, have been reviewed and updated where appropriate, and all reflect current assessment and medical decision making during today's encounter, July 31, 2022) Tristen Raphael MD documented in this encounter [facility] 07-31-2022 Nurse Note Additional intake questions: Has the patient had fever, nausea, vomiting, diarrhea, constipation, fatigue for > 1 week? No Does the patient have a decreased appetite? No Does patient want to see a Director Of Music? No (yes to any of above refer patient to schedulers for dietitian appointment) ) Does patient have any new or increased numbness or tingling of extremities? No Is patient interested in fertility information? No Does patient need any prescription refills? No Does patient have an advanced directive in place? Yes, no copy found in [facility] Patient referred to [facility] Electronically Signed By: Melinda Roberts LPN documented in this encounter [facility] 07-19-2022 Miscellaneous Notes Fidelina Nolan('s) spouse: Delores is calling Tristen Raphael MD today regarding Dietetic Tech - Other (Medication) She went to get her husbands cholestyramine and they told her it could not be filled until 08/12 which does not make sense since he had it last filled on 05/28 and he takes 2 pills a day. Please advise Patient has been identified by name and birthdate. Requesting response back: call at home [phone] (home) [phone] (cell) Real Vogel July 19, 2022 documented in this encounter [facility] 05-20-2022 Miscellaneous Notes Pt's called stating that patient has Bronchitis again. My question is: Are the following 2 medications that they prescribed safe for him to take? 1. Doxycycline Hyclate 100 mg (twice a day) 2. methylPrednisolone 4 mg 6 days with decreasing dosage each day." Instructed her that this is fine and increase fluids. Jasmina Arita RN documented in this encounter [facility] 04-24-2022 History of Present illness Narrative Images from the original note were not included. [facility] PATIENT NAME: Fidelina Nolan CC: f/u standard risk t(11;14) myeloma. Baseline assessment on initial diagnosis date 01/2020 IMWG criteria, [place] Journal of Haematology 121: 749-57, 2003, update in: Orion et al. Leukemia 20: 1467-73, 2006 and at IMW meeting Tammi 2010 Symptomatic multiple myeloma [place] light chain Related Organ or Tissue Involvement (CRAB) or other Myeloma Defining Event (MDE): Renal insufficiency, eGFR <40 ml/min or serum creatinine >2mg/dL, result of biopsy confirmation (if relationship to MM in doubt): GFR 36, child care group leader 1.8, Bone disease: At least one lytic bone lesion on XR or CT if BMPC >=10%, at least 2 bone lesions on XR or CT if BMPC<10%, location of lytic lesion(s): sternum, left 6th rib, right acetabulum; mild hypercalcemia (Ca 10.4) Myeloma FISH panel: t(11;14), loss of 1p Cytogenetics: 46,XY LDH: 180 ISS stage: II (albumin < 3,5g/dL OR b2M 3,5-5,4mg/L) RISS stage: II Monoclonal proteins at diagnosis: Serum M-spike: 0 gm/dL, Involved serum free light chains: 1198 mg/L and Uninvolved serum free light chains: 8.3 mg/L Total immunoglobulins at diagnosis: IgG 850 mg/dL, IgA 78 mg/dL, IgM 29mg/dL Bone marrow plasma cell infiltration: 20% Systemic treatment and disease course -01/2020- 07/18/2020: VRd. Standard dosing, V 1.3, R 25 mg, dex 20 mg. R 25 mg given for 2 weeks with first cycle then decreased to 15 mg starting second cycle. Grade 3 thrombocytopenia with second cycle of V, day 15 held. BR: VGPR by light chain criteria after one cycle. Appearance of a low level IgG kappa M protein in Mar and a faint lambda in April, will watch. AEs: insomnia on days of dex, possibly worsening diarrhea with R. -07/2020: R 15 mg maintenance. BR: VGPR. AE: Diarrhea and urgency. -01/05/2021- present: Biochemical relapse. PVd. V 1 mg/m2 and d 20 mg days 1,8,15, P 2 mg daily for 21 days every 28 days. BR: Serologic CR. AE: grade 4 neutropenia due to pom, reduced to 1 mg after first cycle. Grade 1 neuropathy, reduced V to every other week in March and dose to 0.7 in June 2021. V stopped in December 2021 due to neuropathy although unlikely to be related. Dex reduced to 8 mg at same time. Local treatments (radiation, surgery, kyphoplasty) XRT: Right pelvis (acetabulum), 2000 cGy in [address] Cedeno. HISTORY OF THE PRESENT ILLNESS: Mr. Nolan continues to do well. Taking pom and dex as instructed. Vacation 05/03-05/26. Going to [facility] in Jul 2022. PMH: OA HTN DM2 Hypothyroidism Skin cancer (unknown type) PSH Skin cancer removal CURRENT MEDICATIONS: Current Outpatient Medications Medication Sig pomalidomide (POMALYST) 1 mg capsule TAKE 1 CAPSULE ONCE DAILY FOR 21 DAYS ON WITH 7 DAYS OFF pregabalin (LYRICA) 25 mg capsule Take 1 capsule by mouth twice daily for 90 days. cholestyramine (QUESTRAN) 4 gram packet TAKE 1 G BY MOUTH THREE TIMES DAILY NEEDED. rivaroxaban (XARELTO) 20 mg tablet TAKE 1 TABLET BY MOUTH EVERY DAY WITH DINNER dexAMETHasone (DECADRON) 4 mg tablet Take 2 pills weekly (3 weeks/1 week off) acyclovir (ZOVIRAX) 400 mg tablet Take 1 tablet by mouth every 12 hours. mecobalamin, vitamin B12, 1,000 mcg ODT Dissolve 1 tablet under the tongue once daily. acetaminophen (TYLENOL) 325 mg tablet Take 2 tablets by mouth every 6 hours as needed. cholecalciferol (VITAMIN D3) 1,000 unit tab tablet 1 tablet by ORAL/FEEDING TUBE route once daily. loratadine 10 mg cap Take 10 mg by mouth. calcium carbonate (CALCIUM ANTACID) 500 mg chew Take 2 tablets by mouth twice daily. SYNTHROID 25 mcg tablet Take 25 mcg by mouth once daily. levoFLOXacin (LEVAQUIN) 500 mg tablet Take 500 mg by mouth once daily. (Patient not taking: Reported on 04/18/2022) guaiFENesin (MUCINEX) 600 mg 12 hr tablet Take 2 tablets by mouth twice daily. benzonatate (TESSALON PERLE) 100 mg capsule Take 1 capsule by mouth every 6 hours as needed for cough. No current facility-administered medications for this visit. ALLERGIES Allergen Reactions Arithromycin [Azith* Rash FH: no FH of cancer Social History Tobacco Use Smoking status: No Substance Use Topics Alcohol use: No Drug use: No Retired. Lives in the [place] area with . REVIEW OF SYSTEMS Ten systems reviewed and negative except for those recorded in the HPI. PHYSICAL EXAMINATION: General appearance: Well appearing, alert, in no acute distress, well-hydrated, well nourished. Skin: Skin color, texture, turgor normal, no suspicious rashes or lesions Head: Normocephalic, atraumatic Eyes: Anicteric sclerae. 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 Will also decrease dex to 8 mg weekly 21 days on 7 days off. Hematology: CBC with anemia, likely myeloma related, improved anemia. B12 was low normal, on B12 replacement. Iron panel looked okay. 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 Mild hypercalcemia as well on prior labs, resolved. 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 Infectious disease: 1)Acyclovir. 2)Immunizations: Yearly influenza vaccine. Musculoskeletal: hip pain due to myeloma. S/p XRT to hip, pain has resolved. Now s/p laminectomy for spine DJD, slow recovery, muscle/physical deconditioning, improved. 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 Bisphoshonates: has completed his course of ZA. Venous thromboembolism risk: rivaroxaban for soleal vein DVT and while on IMiDs. off aspirin. GI: Diarrhea: chronic issue, unpredictable pattern, may be exacerbated by R. Much improved while on pom. control counseling: Performed, patient knows that two reliable methods of control are mandated while on IMiDs and also recommended for any other antimyeloma therapy except for single agent steroids and patient complies. Next follow-up in Jul before he goes in vacation. Monthly labs. The patient's questions were answered to satisfaction. I spent 35 minutes in the visit, with more than 50% of the total [id number] time of the visit in counseling / coordination of care. (Elements copied from my note dated 02/06/2022, have been reviewed and updated where appropriate, and all reflect current assessment and medical decision making during today's encounter, April 24, 2022) Tristen Raphael MD documented in this encounter [facility] 04-24-2022 Nurse Note Additional intake questions: Has the patient had fever, nausea, vomiting, diarrhea, constipation, fatigue for > 1 week? No Does the patient have a decreased appetite? No Does patient want to see a Director Of Music? No (yes to any of above refer patient to schedulers for dietitian appointment) ) Does patient have any new or increased numbness or tingling of extremities? Yes, rt hand Is patient interested in fertility information? No Does patient need any prescription refills? No Does patient have an advanced directive in place? Yes, no copy found in [employer] Patient referred to Social Work and Patient referred to [facility] documented in this encounter [facility] 04-18-2022 History of Present illness Narrative Images from the original note were not included. [facility] [place] Follow-up Visit Follow-up note April 18, 2022 HPI: Mr. Nolan presents today for a follow-up visit. Per his previous visit on 01/10/22: G62.9 Neuropathy (primary encounter diagnosis) R20.0, R20.2 Numbness and tingling Comment: Patient previously seen for numbness and tingling to both feet with radiation up to the level of the knee. Feels a heavy or squeezing sensation. History of htn, hypothyroidism, lumbar fusion L3-5, and multiple myeloma with hx of radiation and chemotherapy. As previously noted, numbness/tingling likely related to multiple myeloma and treatment, however, also question if there is possible lumbar etiology as well. Pt denies worsening of neuropathy since time of previous appointment. Denies recent falls. Previously transitioned from gabapentin to Lyrica and currently taking 25mg BID. Denies SE. Feels that Lyrica has provided some relief of symptoms. At this time will attempt to increase Lyrica dose to 2mg in AM and 50mg QHS. If no SE and symptoms persist during the day will increase to 50mg BID. He continues to work on HEP provided by physical therapy for balance and stability. Recommend continuing to use walker or cane both at home and when out of the house. Can still consider follow up with spine medicine regarding lumbar concerns. States numbness and tingling in his feet has been better. Feels like he has less "grief" in his feet than before. He did recently get new shoes which seems to help. Now has extra wide shoes. Big toe in his left foot was causing him problems but not currently causing problems. Uses cane at home when around the house. Uses a walker when out of the house. Had recently been doing physical therapy exercises on his own. Now notes that from his ankles to his knees he has pain. Denies tingling and numbness to this region. Recently went to [facility] for US DVT and CT chest. Was diagnosed with lymphedema. Will be getting support stockings after appointment today. Currently taking Lyrica 25mg in AM and 25mg in PM. Had bronchitis about one month ago. Denies back pain. PAST MEDICAL HISTORY Diagnosis Date Hypertension Hypothyroid PAST SURGICAL HISTORY Procedure Laterality Date BACK SURGERY HX 07/11/2020 L3-5 CATARACT EXTRACTION HX Right 2013 PAST SURGICAL HISTORY OF 1991 spine surgery Current Outpatient Medications on File Prior to Visit Medication Sig pomalidomide (POMALYST) 1 mg capsule TAKE 1 CAPSULE ONCE DAILY FOR 21 DAYS ON WITH 7 DAYS OFF cholestyramine (QUESTRAN) 4 gram packet TAKE 1 G BY MOUTH THREE TIMES DAILY NEEDED. rivaroxaban (XARELTO) 20 mg tablet TAKE 1 TABLET BY MOUTH EVERY DAY WITH DINNER levoFLOXacin (LEVAQUIN) 500 mg tablet Take 500 mg by mouth once daily. dexAMETHasone (DECADRON) 4 mg tablet Take 2 pills weekly (3 weeks/1 week off) guaiFENesin (MUCINEX) 600 mg 12 hr tablet Take 2 tablets by mouth twice daily. benzonatate (TESSALON PERLE) 100 mg capsule Take 1 capsule by mouth every 6 hours as needed for cough. pregabalin (LYRICA) 25 mg capsule Take one capsule in AM and two capsules in PM. acyclovir (ZOVIRAX) 400 mg tablet Take 1 tablet by mouth every 12 hours. mecobalamin, vitamin B12, 1,000 mcg ODT Dissolve 1 tablet under the tongue once daily. acetaminophen (TYLENOL) 325 mg tablet Take 2 tablets by mouth every 6 hours as needed. cholecalciferol (VITAMIN D3) 1,000 unit tab tablet 1 tablet by ORAL/FEEDING TUBE route once daily. loratadine 10 mg cap Take 10 mg by mouth. calcium carbonate (CALCIUM ANTACID) 500 mg chew Take 2 tablets by mouth twice daily. SYNTHROID 25 mcg tablet Take 25 mcg by mouth once daily. No current facility-administered medications on file prior to visit. Social History Tobacco Use Smoking status: Never Smokeless tobacco: Never Vaping Use Vaping Use: Never used Substance Use Topics Alcohol use: Not Currently Drug use: Not Currently ALLERGIES Allergen Reactions Arithromycin [Azith* Rash Review of Systems: Constitutional: denies fever, weight loss, loss of appetite ENT: Denies + loss of hearing (bilat hearing aids), vertigo Vision: denies blurring vison, double vision/diplopia Cardiopulmonary: denies chest pain, palpitations Respiratory: denies shortness of breath GI: denies recent nausea, vomiting, + diarrhea, constipation : denies incontinence Musculoskeletal: denies + weakness Back/spine: denies low back, mid back, or cervical pains Neuro: denies tremors, loss of feeling, dizziness, seizure, blackout, paresthesia, facial paresthesia, facial weakness, + difficulty in speech (when taking decadron), slurring of words, dysarthria, dysphagia, memory loss, headache Physical Exam: 04/18/22 1308 BP: 112/60 Pulse: 71 Resp: 18 Temp: 36.4 C (97.6 F) SpO2: 99% Weight: 93 kg (205 lb) Patient is alert and in no distress. Dress is appropriate. Mood is appropriate Breathing appears regular and unstressed Neurologic examination: Cognitively intact. No deficits. No formal MMSE performed. CN: Pupils equal and reactive to light, extraocular movements intact with no nystagmus, face is symmetric with no facial droop, hearing decreased bilaterally R>L, symmetric evaluation of the soft palate, tongue is midline with no deviation, shoulder shrug is symmetric. Motor exam shows 5/5 strength symmetric through the upper and lower extremities in all groups tested with exception of below: MUSCLES Lower Extremity RIGHT LEFT Hip Flexion 4+/5 5/5 Hip Extension 5/5 5/5 BiFem (Knee Flex) 4+/5 5/5 Quads (Knee Ext) 5/5 5/5 Gastroc (Plantflx) 5/5 5/5 TibAnt (Dorsiflx) 4/5 5/5 Sensory intact to light touch in all extremities. Vibratory sensation is decreased to level of ankle in BLE. Pinprick sensation decreased to top of the sanchez bilaterally. Deep tendon reflexes are decreased symmetrically at the biceps, brachioradialis, triceps, patella, and achilles bilaterally. Coordination: No dysmetria on finger to nose. No tremors noted. No drift seen. Gain unstable; uses rolator. Labs/studies: Component Latest Ref Rng & Units 03/06/2022 03/06/2022 9:44 AM 9:44 AM WBC 3.70 - 11.00 k/uL 4.93 RBC 4.20 - 6.00 m/uL 3.56 (L) Hemoglobin 13.0 - 17.0 g/dL 12.4 (L) Hematocrit 39.0 - 51.0 % 35.8 (L) MCV 80.0 - 100.0 fL 100.6 (H) MCH 26.0 - 34.0 pg 34.8 (H) MCHC 30.5 - 36.0 g/dL 34.6 RDW-CV 11.5 - 15.0 % 15.1 (H) Platelet Count 150 - 400 k/uL 170 MPV 9.0 - 12.7 fL 9.8 Neut% % 27.5 Abs Neut (ANC) 1.45 - 7.50 k/uL 1.35 (L) Lymph% % 50.9 Abs Lymph 1.00 - 4.00 k/uL 2.51 Kern% % 16.2 Abs Kern <0.87 k/uL 0.80 Eosin% % 3.0 Abs Eosin <0.46 k/uL 0.15 Baso% % 2.2 Abs Baso <0.11 k/uL 0.11 (H) Immature Gran % % 0.2 IMMATURE GRANS (ABS) <0.10 k/uL <0.03 NRBC /100 WBC 0.0 Absolute nRBC <0.01 k/uL <0.01 DTYPE Auto Protein, Total 6.3 - 8.0 g/dL 6.1 (L) 5.9 (L) Albumin 3.9 - 4.9 g/dL 4.0 Calcium 8.5 - 10.2 mg/dL 8.7 Bilirubin, Total 0.2 - 1.3 mg/dL 0.4 Alkaline Phosphatase 38 - 113 U/L 49 AST 14 - 40 U/L 16 ALT 10 - 54 U/L 15 Glucose 74 - 99 mg/dL 115 (H) BUN 9 - 24 mg/dL 24 Creatinine 0.73 - 1.22 mg/dL 1.67 (H) Sodium 136 - 144 mmol/L 140 Potassium 3.7 - 5.1 mmol/L 4.1 Chloride 97 - 105 mmol/L 108 (H) CO2 22 - 30 mmol/L 20 (L) Anion Gap 9 - 18 mmol/L 12 eGFR >=60 mL/min/1.73m 40 (L) Albumin 3.37 - 4.23 g/dL 3.59 Alpha 1 Globulin 0.18 - 0.31 g/dL 0.15 (L) Alpha 2 Globulin 0.52 - 0.97 g/dL 0.69 Beta Globulin 0.84 - 1.36 g/dL 0.81 (L) Gamma Globulin 0.70 - 1.44 g/dL 0.65 (L) Interpretation (Prot Electro) No definitive M protein is identified on protein electrophoresis. No definitive M protein is identified on protein electrophoresis. Interpretation Comment for Protein Electrophoresis Hypogammaglobulinemia is present, which can be seen in the setting of monoclonal gammopathy. If clinically indicated, monoclonal protein analysis and serum free light chain analysis are suggested to evaluate further for monoclonal gammopathy. M-Protein Location M-Protein Concentration <=0.00 g/dL 0.00 SPE Staff Review Reviewed by Khoa Guevara MD, Ph.D ([id number]) IgG 700 - 1,600 mg/dL 723 IgA 70 - 400 mg/dL 119 IgM 40 - 230 mg/dL 27 (L) [place] Free, Serum 3.3 - 19.4 mg/L 30.2 (H) Lambda Free, Serum 5.7 - 26.3 mg/L 20.5 K/L Ratio, Serum 0.26 - 1.65 1.47 MPA Result No M protein is identified. No M protein is identified. Staff Review (MPA) Reviewed by Khoa Guevara MD, Ph.D ([id number]) Previously Reviewed: Component Latest Ref Rng & Units 12/21/2021 12/21/2021 12/21/2021 12:57 PM 12:58 PM 2:59 PM WBC 3.70 - 11.00 k/uL 7.39 RBC 4.20 - 6.00 m/uL 3.95 (L) Hemoglobin 13.0 - 17.0 g/dL 13.4 Hematocrit 39.0 - 51.0 % 39.9 MCV 80.0 - 100.0 fL 101.0 (H) MCH 26.0 - 34.0 pg 33.9 MCHC 30.5 - 36.0 g/dL 33.6 RDW-CV 11.5 - 15.0 % 15.2 (H) Platelet Count 150 - 400 k/uL 174 MPV 9.0 - 12.7 fL 10.0 NRBC /100 WBC 0.0 Absolute nRBC <0.01 k/uL <0.01 Neut% % 71.0 Abs Neut (ANC) 1.45 - 7.50 k/uL 5.25 Lymph% % 24.0 Abs Lymph 1.00 - 4.00 k/uL 1.77 Kern% % 3.0 Abs Kern <0.87 k/uL 0.22 Eosin% % 0.0 Abs Eosin <0.46 k/uL 0.00 Baso% % 0.0 Abs Baso <0.11 k/uL 0.00 Myelo% % 2.0 Left Shift Present Platelet Estimate Adequate Red Cell Morph Reviewed: see results of individual morphologies Anisocytosis Present Ovalocytes Few DTYPE Manual Protein, Total 6.3 - 8.0 g/dL 6.8 7.2 Albumin 3.9 - 4.9 g/dL 4.4 Calcium 8.5 - 10.2 mg/dL 9.6 Bilirubin, Total 0.2 - 1.3 mg/dL 0.4 Alkaline Phosphatase 38 - 113 U/L 60 AST 14 - 40 U/L 17 ALT 10 - 54 U/L 15 Glucose 74 - 99 mg/dL 165 (H) BUN 9 - 24 mg/dL 24 Creatinine 0.73 - 1.22 mg/dL 1.53 (H) Sodium 136 - 144 mmol/L 140 Potassium 3.7 - 5.1 mmol/L 4.8 Chloride 97 - 105 mmol/L 105 CO2 22 - 30 mmol/L 22 Anion Gap 9 - 18 mmol/L 13 eGFR >=60 mL/min/1.73m 45 (L) Albumin 3.37 - 4.23 g/dL 3.68 Alpha 1 Globulin 0.18 - 0.31 g/dL 0.19 Alpha 2 Globulin 0.52 - 0.97 g/dL 0.81 Beta Globulin 0.84 - 1.36 g/dL 0.93 Gamma Globulin 0.70 - 1.44 g/dL 1.20 Interpretation (Prot Electro) No definitive M protein is identified on protein electrophoresis. No definitive M protein is identified on protein electrophoresis. M-Protein Location M-Protein Concentration <=0.00 g/dL 0.00 SPE Staff Review Reviewed by Michael Suarez MD IgG 700-1,600 mg/dL 1,177 IgA 70 - 400 mg/dL 159 IgM 40 - 230 mg/dL 32 (L) [place] Free, Serum 3.3 - 19.4 mg/L 50.3 (H) Lambda Free, Serum 5.7 - 26.3 mg/L 31.0 (H) K/L Ratio, Serum 0.26 - 1.65 1.62 MPA Result No M protein is identified. No M protein is identified. Staff Review (MPA) Reviewed by Michael Suarez MD XR Lumbar Spine 07/26/21: RESULT: Counting reference: Lumbosacral junction. For the purposes of this report, L4-5 is considered the level of the iliac crest and there are 5 lumbar-type vertebrae. Anatomic Variants: None. Mild dextroscoliosis. Posterior decompression and fusion L3-L5 using bilateral rods and pedicle screws. The hardware is intact. No evidence of loosening. Severe disc narrowing L2-3 and L3-4 compatible with severe degenerative disc disease. Milder degenerative disc disease in the upper lumbar spine. Normal SI joints. No other significant abnormality. Assessment/Plan: G62.9 Neuropathy (primary encounter diagnosis) R20.0, R20.2 Numbness and tingling Comment: Patient previously seen for numbness and tingling to both feet with radiation up to the level of the knee. History of htn, hypothyroidism, lumbar fusion L3-5, and multiple myeloma with hx of radiation and chemotherapy. As previously noted, numbness/tingling with possible relation to multiple myeloma and treatment, however, also question if there is possible lumbar etiology as well. At time of visit today he notes an improvement in symptoms in his feet. States tingling has been better. Now only reporting pain to bilateral calves. Denies lumbar pain. Of note, he was recently seen at [facility] ED for BLE edema where US DVT was completed and he was ultimately diagnosed with lymphedema. He was instructed to obtain compression stockings and will be going for a fitting after appointment today. He is currently taking Lyrica 25mg BID without SE or concerns (SE with increased dose). RF provided today. Recommend continuing to use walker or cane both at home and when out of the house. He will follow up in July before leaving for [place] for the winter. May still consider follow up with spine medicine as well if symptoms change or worsen. Kelin Madden APRN.ROBERTO I spent a total of 38 minutes on the date of the service which included preparing to see the patient, [id number] patient care, completing clinical documentation, obtaining and/or reviewing separately obtained history, performing a medically appropriate examination, counseling and educating the patient/family/caregiver, and ordering medications, tests, or procedures. PDMP website checked and validated. All prescriptions have been APPROPRIATELY filled. No suspicious activity was identified. April 18, 2022 Kelin Madden APRN.ROBERTO documented in this encounter [facility] 04-10-2022 Miscellaneous Notes Fidelina Nolan('s) spouse: Delores is calling Tristen Raphael MD today regarding Dietetic Tech - Other (Compression socks ) Pt was in the ER and diagnosed with Lymphedema and they are suggesting compression stockings to help. Pt is requesting a prescription for these to hopefully help with the cost. She would like a call back from Jasmina Herr which she is aware she is not in office today. If these could be prescribed she would like them sent to [facility] in [place] on [address]. Patient has been identified by name and birthdate. Requesting response back: call at home [phone] (home) [phone] (cell) Real Vogel April 10, 2022 documented in this encounter [facility] 04-08-2022 Miscellaneous Notes Pt's daughter called stating, "that Dad's lower right leg and foot look swollen. Both legs actually look larger than normal, but the right is larger than the left. Last night when he got up from lounging on the couch. I noticed considerable pitting edema on his right calf (I believe he'd had it resting on his left leg) and if I push on his calf, it does pit some." Instructed them to go to emergency room to evaluated for blood clot since he is on pomalyst. Jasmina Arita RN documented in this encounter [facility] 03-27-2022 Miscellaneous Notes Delores called to check on the status of the refill. She stated that [facility] told her that they haven't received the order. Delores said that pt needs to get his medication by Friday and [facility] agreed to send it out today pt to receive his medicine in time. [facility] Delores is also requesting an update. Requesting response back: call at home [phone] (home) [phone] (cell) Perry Perry March 27, 2022 documented in this encounter [facility] 03-14-2022 Miscellaneous Notes DAughter called stating that, "Dad had a cough in JANUARY - was put on an antibiotic. Cough still lingered...felt it was becoming more often this week. Dad saw the family doctor today - chest clear, but diagnosed with bacterial bronchitis. T - 99..3. Instructed that a covid test should be done and he would be followed up. If sob or symptoms worsen, pt to go to emergency room. Jasmina Arita RN documented in this encounter [facility] 02-26-2022 Miscellaneous Notes RNCC spoke with patient's Delores. Informed her that script had not been sent by routed provider. Prescription has been re-routed to Pablo Ulloa CNP to sign as a higher priority - patient needs drug by the end of this week to start cycle correctly. Encouraged her to reach out with any ongoing issues or concerns. Rebeca Mann RN February 26, 2022 11:50 AM Fidelina Nolan('s) spouse: Delores is calling Tristen Raphael MD today regarding Care Coordination. Delores would like a call back today from the covering RNCC to discuss pt RX pomalidomide (POMALYST) 1 mg capsule. Patient has been identified by name and birthdate. Duration of symptoms: N/A Requesting response back: call at home [phone] Danette Espinoza Adm Asst February 26, 2022 documented in this encounter [facility] 02-06-2022 Nurse Note Additional intake questions: Has the patient had fever, nausea, vomiting, diarrhea, constipation, fatigue for > 1 week? Yes, fatigue Does the patient have a decreased appetite? No Does patient want to see a Director Of Music? No (yes to any of above refer patient to schedulers for dietitian appointment) ) Does patient have any new or increased numbness or tingling of extremities? Yes, feet Is patient interested in fertility information? No Does patient need any prescription refills? No Does patient have an advanced directive in place? Yes, no copy found in [facility] Patient referred to Social Work and Patient referred to Resource Center documented in this encounter [facility] 02-06-2022 History of Present illness Narrative Images from the original note were not included. [facility] PATIENT NAME: Fidelina Nolan CC: f/u standard risk t(11;14) myeloma. Baseline assessment on initial diagnosis date 01/2020 IMWG criteria, [place] Journal of Haematology 121: 749 57, 2003, update in: Pravinie et al. Leukemia 20: 1467-73, 2006 and at IMW meeting Tammi 2010 Symptomatic multiple myeloma [place] light chain Related Organ or Tissue Involvement (CRAB) or other Myeloma Defining Event (MDE): Renal insufficiency, eGFR <40 ml/min or serum creatinine >2mg/dL, result of biopsy confirmation (if relationship to MM in doubt): GFR 36, child care group leader 1.8, Bone disease: At least one lytic bone lesion on XR or CT if BMPC >=10%, at least 2 bone lesions on XR or CT if BMPC<10%, location of lytic lesion(s): sternum, left 6th rib, right acetabulum; mild hypercalcemia (Ca 10.4) Myeloma FISH panel: t(11;14), loss of 1p Cytogenetics: 46,XY LDH: 180 ISS stage: II (albumin < 3,5g/dL OR b2M 3,5-5,4mg/L) RISS stage: II Monoclonal proteins at diagnosis: Serum M-spike: 0 gm/dL, Involved serum free light chains: 1198 mg/L and Uninvolved serum free light chains: 8.3 mg/L Total immunoglobulins at diagnosis: IgG 850 mg/dL, IgA 78 mg/dL, IgM 29mg/dL Bone marrow plasma cell infiltration: 20% Systemic treatment and disease course -01/2020- 07/18/2020: VRd. Standard dosing, V 1.3, R 25 mg, dex 20 mg. R 25 mg given for 2 weeks with first cycle then decreased to 15 mg starting second cycle. Grade 3 thrombocytopenia with second cycle of V, day 15 held. BR: VGPR by light chain criteria after one cycle. Appearance of a low level IgG kappa M protein in Mar and a faint lambda in April, will watch. AEs: insomnia on days of dex, possibly worsening diarrhea with R. -07/2020: R 15 mg maintenance. BR: VGPR. AE: Diarrhea and urgency. -01/05/2021- present: Biochemical relapse. PVd. V 1 mg/m2 and d 20 mg days 1,8,15, P 2 mg daily for 21 days every 28 days. BR: Serologic CR. AE: grade 4 neutropenia due to pom, reduced to 1 mg after first cycle. Grade 1 neuropathy, reduced V to every other week in March and dose to 0.7 in June 2021. V stopped in December 2021 due to neuropathy although unlikely to be related. Local treatments (radiation, surgery, kyphoplasty) XRT: Right pelvis (acetabulum), 2000 cGy in [address] Cedeno. HISTORY OF THE PRESENT ILLNESS: Mr. Nolan continues to do well. Neuropathy is stable. Taking pom as instructed. Fighting an acute viral bronchitis since last , given azithromycin then switched to levofloxacin on Friday. cough is productive, no fevers, no SOB, not tested for covid. PMH: OA HTN DM2 Hypothyroidism Skin cancer (unknown type) PSH Skin cancer removal CURRENT MEDICATIONS: Current Outpatient Medications Medication Sig pomalidomide (POMALYST) 1 mg capsule TAKE 1 CAPSULE ONCE DAILY FOR 21 DAYS ON WITH 7 DAYS OFF pregabalin (LYRICA) 25 mg capsule Take one capsule in AM and two capsules in PM. rivaroxaban (XARELTO) 20 mg tablet TAKE 1 TABLET BY MOUTH EVERY DAY WITH DINNER acyclovir (ZOVIRAX) 400 mg tablet Take 1 tablet by mouth every 12 hours. dexAMETHasone (DECADRON) 4 mg tablet Take 5 pills every other week (on the day of velcade in the am with food) cholestyramine (QUESTRAN) 4 gram packet TAKE 1 G BY MOUTH THREE TIMES DAILY NEEDED. mecobalamin, vitamin B12, 1,000 mcg ODT Dissolve 1 tablet under the tongue once daily. acetaminophen (TYLENOL) 325 mg tablet Take 2 tablets by mouth every 6 hours as needed. cholecalciferol (VITAMIN D3) 1,000 unit tab tablet 1 tablet by ORAL/FEEDING TUBE route once daily. loratadine 10 mg cap Take 10 mg by mouth. calcium carbonate (CALCIUM ANTACID) 500 mg chew Take 2 tablets by mouth twice daily. SYNTHROID 25 mcg tablet Take 25 mcg by mouth once daily. No current facility-administered medications for this visit. ALLERGIES Allergen Reactions Arithromycin [Azith* Rash FH: no FH of cancer Social History Tobacco Use Smoking status: No Substance Use Topics Alcohol use: No Drug use: No Retired. Lives in the [place] area with . REVIEW OF SYSTEMS Ten systems reviewed and negative except for those recorded in the HPI. PHYSICAL EXAMINATION: General appearance: Well appearing, alert, in no acute distress, well-hydrated, well nourished. Skin: Skin color, texture, turgor normal, no suspicious rashes or lesions Head: Normocephalic, atraumatic Eyes: Anicteric sclerae. 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 V stopped in December 2021. Will also decrease dex to 8 mg weekly 21 days on 7 days off. Hematology: CBC with anemia, likely myeloma related, improved anemia. B12 was low normal, on B12 replacement. Iron panel looked okay. 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 Mild hypercalcemia as well on prior labs, resolved. 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 Infectious disease:likely acute viral bronchitis, anti-tussives and continue levofloxacin to finish up a course of 7 days. 1)Acyclovir. 2)Immunizations: Yearly influenza vaccine. Musculoskeletal: hip pain due to myeloma. S/p XRT to hip, pain has resolved. Now s/p laminectomy for spine DJD, slow recovery, muscle/physical deconditioning, improved. 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 Bisphoshonates: has completed his course of ZA. Venous thromboembolism risk: rivaroxaban for soleal vein DVT and while on IMiDs. off aspirin. GI: Diarrhea: chronic issue, unpredictable pattern, may be exacerbated by R. Much improved while on pom. control counseling: Performed, patient knows that two reliable methods of control are mandated while on IMiDs and also recommended for any other antimyeloma therapy except for single agent steroids and patient complies. Next follow-up in April before he goes to [place]. The patient's questions were answered to satisfaction. I spent 40 minutes in the visit, with more than 50% of the total [id number] time of the visit in counseling / coordination of care. (Elements copied from my note dated 12/21/2021, have been reviewed and updated where appropriate, and all reflect current assessment and medical decision making during today's encounter, February 06, 2022) Tristen Raphael MD documented in this encounter [facility] 02-04-2022 Miscellaneous Notes Pt's called stating that her Wan has had drainage in nose and throat and developed a bad cough. The doctor here had him on a 5 day z-светлана, but it didn't seem to help so he has prescribed a stronger Rx called levoquin (levofloxacin)." Instructed her that levaquin is ok to take and questioned if patient had a covid test done. /me documented in this encounter [facility] 01-10-2022 History of Present illness Narrative Images from the original note were not included. [facility] [place] Follow-up Visit Follow-up note January 10, 2022 HPI: Mr. Nolan presents today for a follow-up visit. Per his previous visit on 10/04/21: G62.9 Neuropathy (primary encounter diagnosis) R20.0, R20.2 Numbness and tingling Comment: Patient previously seen for numbness and tingling to both feet. Numbness can radiate up to the level of the knee. Can also experience a squeezing sensation. Notable history of htn, hypothyroidism, lumbar fusion L3-5, and multiple myeloma with hx of radiation and chemotherapy. As previously noted, numbness/tingling likely related to multiple myeloma and treatment, however, also question if there is possible lumbar etiology as well. Follows with oncology regularly as well as neurosurgery. Previously started on trial of gabapentin for paresthesias. Has been taking 100mg QHS which has helped him to sleep at night, however, unable to take during the day due to increased drowsiness. Evening dose not providing relief of symptoms during the daytime. After review of previous medications, Tahmina noted in patient's chart, however, neither him nor his recall him taking the medication. After review of chart, cannot locate when medication was prescribed or mention of medication in any previous notes in Epic. Discussed medications with patient and his and at this time will trial Lyrica 25mg QHS. Can increase to 25mg BID if no SE. Pt will notify the office if upon returning home he determines that he had in fact taken the medication in the past. Note that in interim patient has completed PT and is currently using rolator for stability when ambulating. Recommend continuing HEP and using assistive device. Can consider consult to spine medicine for follow up regarding lumbar concerns. States neuropathic symptoms may have slighlty improved. States he sleeps at night without problem but also drowsy during the day. States he is unsure if this is related to the Lyrica. States sleep problems have been present during most of his treatment. Has difficulty sleeping on days he takes the dexamethasone. Currently 25mg Lyrica BID. Currently using a cane or a walker when at home. His states he will frequently not use an assistive device. Works on therapy twice per week. Does a workout related to HEP provided by PT. States if he puts his feet up they will always feel like they are asleep. Feel numb. Will have both pain and weakness if he stands for long period of time. Pain radiates up his legs to the level of the knee. Hx of lumbar issues. Has not followed with spine recently. Stopped Velcade in November; concern for contribution to neuropathy. Takes Zometa every three months. Appetite has been good. Gaining weight. States he feels "really good." No worsening of neuropathy since time of previous appointment. PAST MEDICAL HISTORY Diagnosis Date Hypertension Hypothyroid PAST SURGICAL HISTORY Procedure Laterality Date BACK SURGERY HX 07/11/2020 L3-5 CATARACT EXTRACTION HX Right 2013 PAST SURGICAL HISTORY OF 1990 spine surgery Current Outpatient Medications on File Prior to Visit Medication Sig pomalidomide (POMALYST) 1 mg capsule TAKE 1 CAPSULE ONCE DAILY FOR 21 DAYS ON WITH 7 DAYS OFF rivaroxaban (XARELTO) 20 mg tablet TAKE 1 TABLET BY MOUTH EVERY DAY WITH DINNER acyclovir (ZOVIRAX) 400 mg tablet Take 1 tablet by mouth every 12 hours. pregabalin (LYRICA) 25 mg capsule Take 1 capsule by mouth twice daily for 90 days. Take one capsule at bedtime for two weeks. Can increase to one capsule twice daily. dexAMETHasone (DECADRON) 4 mg tablet Take 5 pills every other week (on the day of velcade in the am with food) cholestyramine (QUESTRAN) 4 gram packet TAKE 1 G BY MOUTH THREE TIMES DAILY NEEDED. mecobalamin, vitamin B12, 1,000 mcg ODT Dissolve 1 tablet under the tongue once daily. acetaminophen (TYLENOL) 325 mg tablet Take 2 tablets by mouth every 6 hours as needed. cholecalciferol (VITAMIN D3) 1,000 unit tab tablet 1 tablet by ORAL/FEEDING TUBE route once daily. loratadine 10 mg cap Take 10 mg by mouth. calcium carbonate (CALCIUM ANTACID) 500 mg chew Take 2 tablets by mouth twice daily. SYNTHROID 25 mcg tablet Take 25 mcg by mouth once daily. No current facility-administered medications on file prior to visit. Social History Tobacco Use Smoking status: Never Smoker Smokeless tobacco: Never Used Vaping Use Vaping Use: Never used Substance Use Topics Alcohol use: Not Currently Drug use: Not Currently ALLERGIES Allergen Reactions Arithromycin [Azith* Rash Review of Systems: Constitutional: denies fever, weight loss, loss of appetite ENT: Denies + loss of hearing (bilat hearing aids), vertigo Vision: denies blurring vison, double vision/diplopia Cardiopulmonary: denies chest pain, palpitations Respiratory: denies shortness of breath GI: denies recent nausea, vomiting, + diarrhea, constipation : denies incontinence Musculoskeletal: denies + weakness, joint ache/pain Back/spine: denies low back, mid back, or cervical pains Neuro: denies tremors, loss of feeling, dizziness, seizure, blackout, paresthesia, facial paresthesia, facial weakness, + difficulty in speech (when taking decadron), slurring of words, dysarthria, dysphagia, memory loss, headache Physical Exam: 01/10/22 1127 BP: 118/74 Pulse: 70 Resp: 18 Temp: 36.3 C (97.4 F) SpO2: 98% Weight: 89.6 kg (197 lb 9.6 oz) Patient is alert and in no distress. Dress is appropriate. Mood is appropriate Breathing appears regular and unstressed Neurologic examination: Cognitively intact. No deficits. No formal MMSE performed. CN: Pupils equal and reactive to light, extraocular movements intact with no nystagmus, face is symmetric with no facial droop, hearing decreased bilaterally R>L, symmetric evaluation of the soft palate, tongue is midline with no deviation, shoulder shrug is symmetric. Motor exam shows 5/5 strength symmetric through the upper and lower extremities in all groups tested with exception of below: MUSCLES Lower Extremity RIGHT LEFT Hip Flexion 4+/5 5/5 Hip Extension 5/5 5/5 BiFem (Knee Flex) 4+/5 5/5 Quads (Knee Ext) 5/5 5/5 Gastroc (Plantflx) 5/5 5/5 TibAnt (Dorsiflx) 4/5 5/5 Sensory intact to light touch in all extremities. Vibratory sensation is decreased to level of ankle in BLE. Pinprick sensation decreased to level of ankle bilaterally. Deep tendon reflexes are decreased symmetrically at the biceps, brachioradialis, triceps, patella, and achilles bilaterally. Coordination: No dysmetria on finger to nose. No tremors noted. No drift seen. Gain unstable; uses rolator. Labs/studies: Component Latest Ref Rng & Units 12/21/2021 12/21/2021 12/21/2021 12:57 PM 12:58 PM 2:59 PM WBC 3.70 - 11.00 k/uL 7.39 RBC 4.20 - 6.00 m/uL 3.95 (L) Hemoglobin 13.0 - 17.0 g/dL 13.4 Hematocrit 39.0 - 51.0 % 39.9 MCV 80.0 - 100.0 fL 101.0 (H) MCH 26.0 - 34.0 pg 33.9 MCHC 30.5 - 36.0 g/dL 33.6 RDW-CV 11.5 - 15.0 % 15.2 (H) Platelet Count 150 - 400 k/uL 174 MPV 9.0 - 12.7 fL 10.0 NRBC /100 WBC 0.0 Absolute nRBC <0.01 k/uL <0.01 Neut% % 71.0 Abs Neut (ANC) 1.45 - 7.50 k/uL 5.25 Lymph% % 24.0 Abs Lymph 1.00 - 4.00 k/uL 1.77 Kern% % 3.0 Abs Kern <0.87 k/uL 0.22 Eosin% % 0.0 Abs Eosin <0.46 k/uL 0.00 Baso% % 0.0 Abs Baso <0.11 k/uL 0.00 Myelo% % 2.0 Left Shift Present Platelet Estimate Adequate Red Cell Morph Reviewed: see results of individual morphologies Anisocytosis Present Ovalocytes Few DTYPE Manual Protein, Total 6.3 - 8.0 g/dL 6.8 7.2 Albumin 3.9 - 4.9 g/dL 4.4 Calcium 8.5 - 10.2 mg/dL 9.6 Bilirubin, Total 0.2 - 1.3 mg/dL 0.4 Alkaline Phosphatase 38 - 113 U/L 60 AST 14 - 40 U/L 17 ALT 10 - 54 U/L 15 Glucose 74 - 99 mg/dL 165 (H) BUN 9 - 24 mg/dL 24 Creatinine 0.73 - 1.22 mg/dL 1.53 (H) Sodium 136 - 144 mmol/L 140 Potassium 3.7 - 5.1 mmol/L 4.8 Chloride 97 - 105 mmol/L 105 CO2 22 - 30 mmol/L 22 Anion Gap 9 - 18 mmol/L 13 eGFR >=60 mL/min/1.73m 45 (L) Albumin 3.37 - 4.23 g/dL 3.68 Alpha 1 Globulin 0.18 - 0.31 g/dL 0.19 Alpha 2 Globulin 0.52 - 0.97 g/dL 0.81 Beta Globulin 0.84 - 1.36 g/dL 0.93 Gamma Globulin 0.70 - 1.44 g/dL 1.20 Interpretation (Prot Electro) No definitive M protein is identified on protein electrophoresis. No definitive M protein is identified on protein electrophoresis. M-Protein Location M-Protein Concentration <=0.00 g/dL 0.00 SPE Staff Review Reviewed by Michael Suarez MD IgG 700-1,600 mg/dL 1,177 IgA 70 - 400 mg/dL 159 IgM 40 - 230 mg/dL 32 (L) [place] Free, Serum 3.3 - 19.4 mg/L 50.3 (H) Lambda Free, Serum 5.7 - 26.3 mg/L 31.0 (H) K/L Ratio, Serum 0.26 - 1.65 1.62 MPA Result No M protein is identified. No M protein is identified. Staff Review (MPA) Reviewed by Michael Suarez MD Previously Reviewed: XR Lumbar Spine 07/26/21: RESULT: Counting reference: Lumbosacral junction. For the purposes of this report, L4-5 is considered the level of the iliac crest and there are 5 lumbar-type vertebrae. Anatomic Variants: None. Mild dextroscoliosis. Posterior decompression and fusion L3-L5 using bilateral rods and pedicle screws. The hardware is intact. No evidence of loosening. Severe disc narrowing L2-3 and L3-4 compatible with severe degenerative disc disease. Milder degenerative disc disease in the upper lumbar spine. Normal SI joints. No other significant abnormality. Component Latest Ref Rng & Units 07/06/2021 08/02/2021 WBC 3.70 - 11.00 k/uL 6.25 RBC 4.20 - 6.00 m/uL 3.73 (L) Hemoglobin 13.0 - 17.0 g/dL 13.3 Hematocrit 39.0 - 51.0 % 39.0 MCV 80.0 - 100.0 fL 104.6 (H) MCH 26.0 - 34.0 pG 35.7 (H) MCHC 30.5 - 36.0 g/dL 34.1 RDW-CV 11.5 - 15.0 % 15.2 (H) Platelet Count 150 - 400 k/uL 120 (L) MPV 9.0 - 12.7 fL 8.8 (L) Neut% % 67.7 Abs Neut (ANC) 1.45 - 7.50 k/uL 4.23 Lymph% % 22.6 Abs Lymph 1.00 - 4.00 k/uL 1.41 Kern% % 6.9 Abs Kern <0.87 k/uL 0.43 Eosin% % 1.4 Abs Eosin <0.46 k/uL 0.09 Baso% % 1.4 Abs Baso <0.11 k/uL 0.09 Nucleated Reds 0 /100 WBC 0.0 Absolute nRBC <0.01 k/uL <0.01 Diff Type Auto Diff Glucose 74 - 99 mg/dL 123 (H) BUN 9 - 24 mg/dL 31 (H) Creatinine 0.73 - 1.22 mg/dL 1.57 (H) Sodium 136 - 144 mmol/L 139 Potassium 3.7 - 5.1 mmol/L 4.6 Chloride 97 - 105 mmol/L 108 (H) CO2 22 - 30 mmol/L 21 (L) Anion Gap 9 - 18 mmol/L 10 Calcium 8.5 - 10.2 mg/dL 9.0 eGFR- 51 eGFR-All Other Races . 42 Protein, Total 6.3 - 8.0 g/dL 6.6 Albumin 3.37 - 4.23 gm/dL 3.83 Alpha 1 Globulin 0.18 - 0.31 gm/dL 0.19 Alpha 2 Globulin 0.52 - 0.97 gm/dL 0.67 Beta Globulin 0.84 - 1.36 gm/dL 0.91 Gamma Globulin 0.70 - 1.44 gm/dL 1.00 Interpretation (Prot Electro) SEE COMMENT M-Protein Location N/A M-Protein Concentration 0.00 gm/dL 0.00 SPE Staff Review Reviewed by Michael Suarez MD ([id number]) MPA IgG, Serum 700 - 1,600 mg/dL 1,039 MPA IgA, Serum 70 - 400 mg/dL 152 MPA IgM, Serum 40 - 230 mg/dL 23 (L) [place] Free, Serum 3.30 - 19.40 mg/L 26.2 (H) Lambda Free, Serum 5.7 - 26.3 mg/L 21.8 K/L Ratio, Serum 0.26 - 1.65 1.20 MPA Result No M protein is identified. No M protein is identified. Staff Review (MPA) Reviewed by Michael Suarez MD ([id number]) Assessment/Plan: G62.9 Neuropathy (primary encounter diagnosis) R20.0, R20.2 Numbness and tingling Comment: Patient previously seen for numbness and tingling to both feet with radiation up to the level of the knee. Feels a heavy or squeezing sensation. History of htn, hypothyroidism, lumbar fusion L3-5, and multiple myeloma with hx of radiation and chemotherapy. As previously noted, numbness/tingling likely related to multiple myeloma and treatment, however, also question if there is possible lumbar etiology as well. Pt denies worsening of neuropathy since time of previous appointment. Denies recent falls. Previously transitioned from gabapentin to Lyrica and currently taking 25mg BID. Denies SE. Feels that Lyrica has provided some relief of symptoms. At this time will attempt to increase Lyrica dose to 2mg in AM and 50mg QHS. If no SE and symptoms persist during the day will increase to 50mg BID. He continues to work on HEP provided by physical therapy for balance and stability. Recommend continuing to use walker or cane both at home and when out of the house. Can still consider follow up with spine medicine regarding lumbar concerns. Kelin Madden APRN.ROBERTO I spent a total of 38 minutes on the date of the service which included preparing to see the patient, [id number] patient care, completing clinical documentation, obtaining and/or reviewing separately obtained history, performing a medically appropriate examination, counseling and educating the patient/family/caregiver and ordering medications, tests, or procedures. documented in this encounter [facility] 11-22-2021 Miscellaneous Notes Pt c/o increased congestion, coughing and no fever. Instructed to do a covid test and it was found to be negative. Instructed to take mucinex, tylenol when needed and to increase fluids. Pt to call if symptoms worsen. Jasmina Arita RN documented in this encounter [facility] 11-15-2021 Note . MICRO - Microbiology PROCEDURE: Urine Culture [*1] SOURCE: Urine, Clean Catch BODY SITE: COLLECTED DATE/TIME: 11/13/2021 11:12 EDT RECEIVED DATE/TIME: 11/13/2021 19:56 EDT START DATE/TIME: 11/13/2021 19:56 EDT FREE TEXT SOURCE: FINAL REPORTS Final Report [] Verified Date/Time/Personnel: 11/15/2021 06:57 EDT <10,000 cfu/ml. No Significant growth. Sensitivity not indicated. PRELIMINARY REPORTS Preliminary Report [] Verified Date/Time/Personnel: 11/14/2021 11:00 EDT No growth to date Performing Locations *1: This test was performed at: [facility], [address] [place] [address], [id number] , Formerly [facility], later [facility] ([place]) 07-26-2021 History of Present illness Narrative Radiology Service Progress Note PATIENT NAME: Fidelina VANGN: [id number] DATE OF SERVICE: July 26, 2021 TIME: 11:34 AM PATIENT IDENTITY VERIFICATION COMPLETED USING TWO (2) IDENTIFIERS: Name and Date of confirmed by patient verbally. FALL SCREENING: Has the patient had 2 falls in the last year or 1 fall with injury or currently using an Ambulatory Assistive Device (Walker, Cane, Wheelchair, Crutches, etc.)? No PATIENT GENDER DATA: Male PATIENT RELEVANT IMPLANT DATA REVIEWED: Not Applicable RADIOLOGY DEPARTMENT: General X-ray: Exam(s) Completed: Spine X-Ray(s): Lumbar AP / LAT / L5-S1 PERIPHERAL IV DATA: Not applicable SIGNED BY: RT Jorge(R) July 26, 2021 11:34 AM documented in this encounter [facility] 03-08-2021 History of Present illness Narrative Radiology Service Progress Note PATIENT NAME: Fidelina Nolan DATE OF SERVICE: March 08, 2021 TIME: 12:52 PM PATIENT IDENTITY VERIFICATION COMPLETED USING TWO (2) IDENTIFIERS: Name and Date of confirmed by patient verbally. FALL SCREENING: Has the patient had 2 falls in the last year or 1 fall with injury or currently using an Ambulatory Assistive Device (Walker, Cane, Wheelchair, Crutches, etc.)? Yes, Patient High Risk for Falls What interventions were put in place to prevent falls during this visit? Offered Assistance with Transfers/Clothing, Instructed Patient to Remain Seated (Not on Exam Table) Until Exam and Increased Observations by Caregivers PATIENT GENDER DATA: Male PATIENT RELEVANT IMPLANT DATA REVIEWED: Yes RADIOLOGY DEPARTMENT: General X-ray: Exam(s) Completed: Spine X-Ray(s): Lumbar AP / LAT / L5-S1 PERIPHERAL IV DATA: Not applicable SIGNED BY: RT Reza(R) March 08, 2021 12:52 PM documented in this encounter [facility] 07-13-2020 History of Past i llness Narrative Problem Noted Date Resolved Date Hypomagnesemia 07/13/2020 07/17/2020 Last Assessment & Plan: Assessment: Hypomagesemia PLAN: -Magnesium sulfate 2 gm IV. -Monitor: signs, symptoms, disease progression, disease regression. -Evaluate: test results, medication effectiveness, response to treatment. Hypokalemia 07/13/2020 07/17/2020 Last Assessment & Plan: Assessment: Hypokalemia PLAN: -K-dur 40 mEq PO x 1. -Monitor: signs, symptoms, disease progression, disease regression. -Evaluate: test results, medication effectiveness, response to treatment. documented as of this encounter (statuses as of 10/18/2021) [facility] History of Past illness Narrative* Problem Noted Date Resolved Date Hypomagnesemia 07/13/2020 07/17/2020 Last Assessment & Plan: Assessment: Hypomagesemia PLAN: -Magnesium sulfate 2 gm IV. -Monitor: signs, symptoms, disease progression, disease regression. -Evaluate: test results, medication effectiveness, response to treatment. Hypokalemia 07/13/2020 07/17/2020 Last Assessment & Plan: Assessment: Hypokalemia PLAN: -K-dur 40 mEq PO x 1. -Monitor: signs, symptoms, disease progression, disease regression. -Evaluate: test results, medication effectiveness, response to treatment. documented as of this encounter (statuses as of 10/25/2021) [facility] History of Past illness Narrative* Problem Noted Date Resolved Date Hypomagnesemia 07/13/2020 07/17/2020 Last Assessment & Plan: Assessment: Hypomagesemia PLAN: -Magnesium sulfate 2 gm IV. -Monitor: signs, symptoms, disease progression, disease regression. -Evaluate: test results, medication effectiveness, response to treatment. Hypokalemia 07/13/2020 07/17/2020 Last Assessment & Plan: Assessment: Hypokalemia PLAN: -K-dur 40 mEq PO x 1. -Monitor: signs, symptoms, disease progression, disease regression. -Evaluate: test results, medication effectiveness, response to treatment. documented as of this encounter (statuses as of 10/30/2021) [facility] History of Past illness Narrative* Problem Noted Date Resolved Date Hypomagnesemia 07/13/2020 07/17/2020 Last Assessment & Plan: Assessment: Hypomagesemia PLAN: -Magnesium sulfate 2 gm IV. -Monitor: signs, symptoms, disease progression, disease regression. -Evaluate: test results, medication effectiveness, response to treatment. Hypokalemia 07/13/2020 07/17/2020 Last Assessment & Plan: Assessment: Hypokalemia PLAN: -K-dur 40 mEq PO x 1. -Monitor: signs, symptoms, disease progression, disease regression. -Evaluate: test results, medication effectiveness, response to treatment. documented as of this encounter (statuses as of 11/07/2021) [facility] History of Past illness Narrative* Problem Noted Date Resolved Date Hypomagnesemia 07/13/2020 07/17/2020 Last Assessment & Plan: Assessment: Hypomagesemia PLAN: -Magnesium sulfate 2 gm IV. -Monitor: signs, symptoms, disease progression, disease regression. -Evaluate: test results, medication effectiveness, response to treatment. Hypokalemia 07/13/2020 07/17/2020 Last Assessment & Plan: Assessment: Hypokalemia PLAN: -K-dur 40 mEq PO x 1. -Monitor: signs, symptoms, disease progression, disease regression. -Evaluate: test results, medication effectiveness, response to treatment. documented as of this encounter (statuses as of 11/07/2021) [facility] History of Past illness Narrative* Problem Noted Date Resolved Date Hypomagnesemia 07/13/2020 07/17/2020 Last Assessment & Plan: Assessment: Hypomagesemia PLAN: -Magnesium sulfate 2 gm IV. -Monitor: signs, symptoms, disease progression, disease regression. -Evaluate: test results, medication effectiveness, response to treatment. Hypokalemia 07/13/2020 07/17/2020 Last Assessment & Plan: Assessment: Hypokalemia PLAN: -K-dur 40 mEq PO x 1. -Monitor: signs, symptoms, disease progression, disease regression. -Evaluate: test results, medication effectiveness, response to treatment. documented as of this encounter (statuses as of 11/14/2021) [facility] History of Past illness Narrative* Problem Noted Date Resolved Date Hypomagnesemia 07/13/2020 07/17/2020 Last Assessment & Plan: Assessment: Hypomagesemia PLAN: -Magnesium sulfate 2 gm IV. -Monitor: signs, symptoms, disease progression, disease regression. -Evaluate: test results, medication effectiveness, response to treatment. Hypokalemia 07/13/2020 07/17/2020 Last Assessment & Plan: Assessment: Hypokalemia PLAN: -K-dur 40 mEq PO x 1. -Monitor: signs, symptoms, disease progression, disease regression. -Evaluate: test results, medication effectiveness, response to treatment. documented as of this encounter (statuses as of 11/20/2021) [facility] History of Past illness Narrative* Problem Noted Date Resolved Date Hypomagnesemia 07/13/2020 07/17/2020 Last Assessment & Plan: Assessment: Hypomagesemia PLAN: -Magnesium sulfate 2 gm IV. -Monitor: signs, symptoms, disease progression, disease regression. -Evaluate: test results, medication effectiveness, response to treatment. Hypokalemia 07/13/2020 07/17/2020 Last Assessment & Plan: Assessment: Hypokalemia PLAN: -K-dur 40 mEq PO x 1. -Monitor: signs, symptoms, disease progression, disease regression. -Evaluate: test results, medication effectiveness, response to treatment. documented as of this encounter (statuses as of 11/21/2021) [facility] History of Past illness Narrative* Problem Noted Date Resolved Date Hypomagnesemia 07/13/2020 07/17/2020 Last Assessment & Plan: Assessment: Hypomagesemia PLAN: -Magnesium sulfate 2 gm IV. -Monitor: signs, symptoms, disease progression, disease regression. -Evaluate: test results, medication effectiveness, response to treatment. Hypokalemia 07/13/2020 07/17/2020 Last Assessment & Plan: Assessment: Hypokalemia PLAN: -K-dur 40 mEq PO x 1. -Monitor: signs, symptoms, disease progression, disease regression. -Evaluate: test results, medication effectiveness, response to treatment. documented as of this encounter (statuses as of 11/22/2021) [facility] History of Past illness Narrative* Problem Noted Date Resolved Date Hypomagnesemia 07/13/2020 07/17/2020 Last Assessment & Plan: Assessment: Hypomagesemia PLAN: -Magnesium sulfate 2 gm IV. -Monitor: signs, symptoms, disease progression, disease regression. -Evaluate: test results, medication effectiveness, response to treatment. Hypokalemia 07/13/2020 07/17/2020 Last Assessment & Plan: Assessment: Hypokalemia PLAN: -K-dur 40 mEq PO x 1. -Monitor: signs, symptoms, disease progression, disease regression. -Evaluate: test results, medication effectiveness, response to treatment. documented as of this encounter (statuses as of 12/03/2021) [facility] History of Past illness Narrative* Problem Noted Date Resolved Date Hypomagnesemia 07/13/2020 07/17/2020 Last Assessment & Plan: Assessment: Hypomagesemia PLAN: -Magnesium sulfate 2 gm IV. -Monitor: signs, symptoms, disease progression, disease regression. -Evaluate: test results, medication effectiveness, response to treatment. Hypokalemia 07/13/2020 07/17/2020 Last Assessment & Plan: Assessment: Hypokalemia PLAN: -K-dur 40 mEq PO x 1. -Monitor: signs, symptoms, disease progression, disease regression. -Evaluate: test results, medication effectiveness, response to treatment. documented as of this encounter (statuses as of 12/31/2021) [facility] History of Past illness Narrative* Problem Noted Date Resolved Date Hypomagnesemia 07/13/2020 07/17/2020 Last Assessment & Plan: Assessment: Hypomagesemia PLAN: -Magnesium sulfate 2 gm IV. -Monitor: signs, symptoms, disease progression, disease regression. -Evaluate: test results, medication effectiveness, response to treatment. Hypokalemia 07/13/2020 07/17/2020 Last Assessment & Plan: Assessment: Hypokalemia PLAN: -K-dur 40 mEq PO x 1. -Monitor: signs, symptoms, disease progression, disease regression. -Evaluate: test results, medication effectiveness, response to treatment. documented as of this encounter (statuses as of 01/10/2022) [facility] History of Past illness Narrative* Problem Noted Date Resolved Date Hypomagnesemia 07/13/2020 07/17/2020 Last Assessment & Plan: Assessment: Hypomagesemia PLAN: -Magnesium sulfate 2 gm IV. -Monitor: signs, symptoms, disease progression, disease regression. -Evaluate: test results, medication effectiveness, response to treatment. Hypokalemia 07/13/2020 07/17/2020 Last Assessment & Plan: Assessment: Hypokalemia PLAN: -K-dur 40 mEq PO x 1. -Monitor: signs, symptoms, disease progression, disease regression. -Evaluate: test results, medication effectiveness, response to treatment. documented as of this encounter (statuses as of 01/28/2022) [facility] History of Past illness Narrative* Problem Noted Date Resolved Date Hypomagnesemia 07/13/2020 07/17/2020 Last Assessment & Plan: Assessment: Hypomagesemia PLAN: -Magnesium sulfate 2 gm IV. -Monitor: signs, symptoms, disease progression, disease regression. -Evaluate: test results, medication effectiveness, response to treatment. Hypokalemia 07/13/2020 07/17/2020 Last Assessment & Plan: Assessment: Hypokalemia PLAN: -K-dur 40 mEq PO x 1. -Monitor: signs, symptoms, disease progression, disease regression. -Evaluate: test results, medication effectiveness, response to treatment. documented as of this encounter (statuses as of 02/04/2022) [facility] of Past illness Narrative* Problem Noted Date Resolved Date Hypomagnesemia 07/13/2020 07/17/2020 Last Assessment & Plan: Assessment: Hypomagesemia PLAN: -Magnesium sulfate 2 gm IV. -Monitor: signs, symptoms, disease progression, disease regression. -Evaluate: test results, medication effectiveness, response to treatment. Hypokalemia 07/13/2020 07/17/2020 Last Assessment & Plan: Assessment: Hypokalemia PLAN: -K-dur 40 mEq PO x 1. -Monitor: signs, symptoms, disease progression, disease regression. -Evaluate: test results, medication effectiveness, response to treatment. documented as of this encounter (statuses as of 02/06/2022) [facility] History of Past illness Narrative* Problem Noted Date Resolved Date Hypomagnesemia 07/13/2020 07/17/2020 Last Assessment & Plan: Assessment: Hypomagesemia PLAN: -Magnesium sulfate 2 gm IV. -Monitor: signs, symptoms, disease progression, disease regression. -Evaluate: test results, medication effectiveness, response to treatment. Hypokalemia 07/13/2020 07/17/2020 Last Assessment & Plan: Assessment: Hypokalemia PLAN: -K-dur 40 mEq PO x 1. -Monitor: signs, symptoms, disease progression, disease regression. -Evaluate: test results, medication effectiveness, response to treatment. documented as of this encounter (statuses as of 02/06/2022) [facility]2020 History of Past illness Narrative* Problem Noted Date Resolved Date Hypomagnesemia 07/13/2020 07/17/2020 Last Assessment & Plan: Assessment: Hypomagesemia PLAN: -Magnesium sulfate 2 gm IV. -Monitor: signs, symptoms, disease progression, disease regression. -Evaluate: test results, medication effectiveness, response to treatment. Hypokalemia 07/13/2020 07/17/2020 Last Assessment & Plan: Assessment: Hypokalemia PLAN: -K-dur 40 mEq PO x 1. -Monitor: signs, symptoms, disease progression, disease regression. -Evaluate: test results, medication effectiveness, response to treatment. documented as of this encounter (statuses as of 02/06/2022) [facility]12[facility]2020 History of Past illness Narrative* Problem Noted Date Resolved Date Hypomagnesemia 07/13/2020 07/17/2020 Last Assessment & Plan: Assessment: Hypomagesemia PLAN: -Magnesium sulfate 2 gm IV. -Monitor: signs, symptoms, disease progression, disease regression. -Evaluate: test results, medication effectiveness, response to treatment. Hypokalemia 07/13/2020 07/17/2020 Last Assessment & Plan: Assessment: Hypokalemia PLAN: -K-dur 40 mEq PO x 1. -Monitor: signs, symptoms, disease progression, disease regression. -Evaluate: test results, medication effectiveness, response to treatment. documented as of this encounter (statuses as of 02/26/2022) [facility]2020 History of Past illness Narrative* Problem Noted Date Resolved Date Hypomagnesemia 07/13/2020 07/17/2020 Last Assessment & Plan: Assessment: Hypomagesemia PLAN: -Magnesium sulfate 2 gm IV. -Monitor: signs, symptoms, disease progression, disease regression. -Evaluate: test results, medication effectiveness, response to treatment. Hypokalemia 07/13/2020 07/17/2020 Last Assessment & Plan: Assessment: Hypokalemia PLAN: -K-dur 40 mEq PO x 1. -Monitor: signs, symptoms, disease progression, disease regression. -Evaluate: test results, medication effectiveness, response to treatment. documented as of this encounter (statuses as of 02/26/2022) [facility]2020 History of Past illness Narrative* Problem Noted Date Resolved Date Hypomagnesemia 07/13/2020 07/17/2020 Last Assessment & Plan: Assessment: Hypomagesemia PLAN: -Magnesium sulfate 2 gm IV. -Monitor: signs, symptoms, disease progression, disease regression. -Evaluate: test results, medication effectiveness, response to treatment. Hypokalemia 07/13/2020 07/17/2020 Last Assessment & Plan: Assessment: Hypokalemia PLAN: -K-dur 40 mEq PO x 1. -Monitor: signs, symptoms, disease progression, disease regression. -Evaluate: test results, medication effectiveness, response to treatment. documented as of this encounter (statuses as of 03/01/2022) [facility] History of Past illness Narrative* Problem Noted Date Resolved Date Hypomagnesemia 07/13/2020 07/17/2020 Last Assessment & Plan: Assessment: Hypomagesemia PLAN: -Magnesium sulfate 2 gm IV. -Monitor: signs, symptoms, disease progression, disease regression. -Evaluate: test results, medication effectiveness, response to treatment. Hypokalemia 07/13/2020 07/17/2020 Last Assessment & Plan: Assessment: Hypokalemia PLAN: -K-dur 40 mEq PO x 1. -Monitor: signs, symptoms, disease progression, disease regression. -Evaluate: test results, medication effectiveness, response to treatment. documented as of this encounter (statuses as of 03/27/2022) [facility] History of Past illness Narrative* Problem Noted Date Resolved Date Hypomagnesemia 07/13/2020 07/17/2020 Last Assessment & Plan: Assessment: Hypomagesemia PLAN: -Magnesium sulfate 2 gm IV. -Monitor: signs, symptoms, disease progression, disease regression. -Evaluate: test results, medication effectiveness, response to treatment. Hypokalemia 07/13/2020 07/17/2020 Last Assessment & Plan: Assessment: Hypokalemia PLAN: -K-dur 40 mEq PO x 1. -Monitor: signs, symptoms, disease progression, disease regression. -Evaluate: test results, medication effectiveness, response to treatment. documented as of this encounter (statuses as of 04/08/2022) [facility] History of Past illness Narrative* Problem Noted Date Resolved Date Hypomagnesemia 07/13/2020 07/17/2020 Last Assessment & Plan: Assessment: Hypomagesemia PLAN: -Magnesium sulfate 2 gm IV. -Monitor: signs, symptoms, disease progression, disease regression. -Evaluate: test results, medication effectiveness, response to treatment. Hypokalemia 07/13/2020 07/17/2020 Last Assessment & Plan: Assessment: Hypokalemia PLAN: -K-dur 40 mEq PO x 1. -Monitor: signs, symptoms, disease progression, disease regression. -Evaluate: test results, medication effectiveness, response to treatment. documented as of this encounter (statuses as of 04/18/2022) [facility] History of Past illness Narrative* Problem Noted Date Resolved Date Hypomagnesemia 07/13/2020 07/17/2020 Last Assessment & Plan: Assessment: Hypomagesemia PLAN: -Magnesium sulfate 2 gm IV. -Monitor: signs, symptoms, disease progression, disease regression. -Evaluate: test results, medication effectiveness, response to treatment. Hypokalemia 07/13/2020 07/17/2020 Last Assessment & Plan: Assessment: Hypokalemia PLAN: -K-dur 40 mEq PO x 1. -Monitor: signs, symptoms, disease progression, disease regression. -Evaluate: test results, medication effectiveness, response to treatment. documented as of this encounter (statuses as of 04/24/2022) [facility] History of Past illness Narrative* Problem Noted Date Resolved Date Hypomagnesemia 07/13/2020 07/17/2020 Last Assessment & Plan: Assessment: Hypomagesemia PLAN: -Magnesium sulfate 2 gm IV. -Monitor: signs, symptoms, disease progression, disease regression. -Evaluate: test results, medication effectiveness, response to treatment. Hypokalemia 07/13/2020 07/17/2020 Last Assessment & Plan: Assessment: Hypokalemia PLAN: -K-dur 40 mEq PO x 1. -Monitor: signs, symptoms, disease progression, disease regression. -Evaluate: test results, medication effectiveness, response to treatment. documented as of this encounter (statuses as of 05/08/2022) [facility] History of Past illness Narrative* Problem Noted Date Resolved Date Hypomagnesemia 07/13/2020 07/17/2020 Last Assessment & Plan: Assessment: Hypomagesemia PLAN: -Magnesium sulfate 2 gm IV. -Monitor: signs, symptoms, disease progression, disease regression. -Evaluate: test results, medication effectiveness, response to treatment. Hypokalemia 07/13/2020 07/17/2020 Last Assessment & Plan: Assessment: Hypokalemia PLAN: -K-dur 40 mEq PO x 1. -Monitor: signs, symptoms, disease progression, disease regression. -Evaluate: test results, medication effectiveness, response to treatment. documented as of this encounter (statuses as of 05/10/2022) [facility] History of Past illness Narrative* Problem Noted Date Resolved Date Hypomagnesemia 07/13/2020 07/17/2020 Last Assessment & Plan: Assessment: Hypomagesemia PLAN: -Magnesium sulfate 2 gm IV. -Monitor: signs, symptoms, disease progression, disease regression. -Evaluate: test results, medication effectiveness, response to treatment. Hypokalemia 07/13/2020 07/17/2020 Last Assessment & Plan: Assessment: Hypokalemia PLAN: -K-dur 40 mEq PO x 1. -Monitor: signs, symptoms, disease progression, disease regression. -Evaluate: test results, medication effectiveness, response to treatment. documented as of this encounter (statuses as of 05/20/2022) [facility] History of Past illness Narrative* Problem Noted Date Resolved Date Hypomagnesemia 07/13/2020 07/17/2020 Last Assessment & Plan: Assessment: Hypomagesemia PLAN: -Magnesium sulfate 2 gm IV. -Monitor: signs, symptoms, disease progression, disease regression. -Evaluate: test results, medication effectiveness, response to treatment. Hypokalemia 07/13/2020 07/17/2020 Last Assessment & Plan: Assessment: Hypokalemia PLAN: -K-dur 40 mEq PO x 1. -Monitor: signs, symptoms, disease progression, disease regression. -Evaluate: test results, medication effectiveness, response to treatment. documented as of this encounter (statuses as of 06/10/2022) [facility] History of Past illness Narrative* Problem Noted Date Resolved Date Hypomagnesemia 07/13/2020 07/17/2020 Last Assessment & Plan: Assessment: Hypomagesemia PLAN: -Magnesium sulfate 2 gm IV. -Monitor: signs, symptoms, disease progression, disease regression. -Evaluate: test results, medication effectiveness, response to treatment. Hypokalemia 07/13/2020 07/17/2020 Last Assessment & Plan: Assessment: Hypokalemia PLAN: -K-dur 40 mEq PO x 1. -Monitor: signs, symptoms, disease progression, disease regression. -Evaluate: test results, medication effectiveness, response to treatment. documented as of this encounter (statuses as of 06/17/2022) [facility] History of Past illness Narrative* Problem Noted Date Resolved Date Hypomagnesemia 07/13/2020 07/17/2020 Last Assessment & Plan: Assessment: Hypomagesemia PLAN: -Magnesium sulfate 2 gm IV. -Monitor: signs, symptoms, disease progression, disease regression. -Evaluate: test results, medication effectiveness, response to treatment. Hypokalemia 07/13/2020 07/17/2020 Last Assessment & Plan: Assessment: Hypokalemia PLAN: -K-dur 40 mEq PO x 1. -Monitor: signs, symptoms, disease progression, disease regression. -Evaluate: test results, medication effectiveness, response to treatment. documented as of this encounter (statuses as of 07/14/2022) [facility] History of Past illness Narrative* Problem Noted Date Resolved Date Hypomagnesemia 07/13/2020 07/17/2020 Last Assessment & Plan: Assessment: Hypomagesemia PLAN: -Magnesium sulfate 2 gm IV. -Monitor: signs, symptoms, disease progression, disease regression. -Evaluate: test results, medication effectiveness, response to treatment. Hypokalemia 07/13/2020 07/17/2020 Last Assessment & Plan: Assessment: Hypokalemia PLAN: -K-dur 40 mEq PO x 1. -Monitor: signs, symptoms, disease progression, disease regression. -Evaluate: test results, medication effectiveness, response to treatment. documented as of this encounter (statuses as of 07/24/2022) [facility] History of Past illness Narrative* Problem Noted Date Resolved Date Hypomagnesemia 07/13/2020 07/17/2020 Last Assessment & Plan: Assessment: Hypomagesemia PLAN: -Magnesium sulfate 2 gm IV. -Monitor: signs, symptoms, disease progression, disease regression. -Evaluate: test results, medication effectiveness, response to treatment. Hypokalemia 07/13/2020 07/17/2020 Last Assessment & Plan: Assessment: Hypokalemia PLAN: -K-dur 40 mEq PO x 1. -Monitor: signs, symptoms, disease progression, disease regression. -Evaluate: test results, medication effectiveness, response to treatment. documented as of this encounter (statuses as of 07/26/2022) [facility] History of Past illness Narrative* Problem Noted Date Resolved Date Hypomagnesemia 07/13/2020 07/17/2020 Last Assessment & Plan: Assessment: Hypomagesemia PLAN: -Magnesium sulfate 2 gm IV. -Monitor: signs, symptoms, disease progression, disease regression. -Evaluate: test results, medication effectiveness, response to treatment. Hypokalemia 07/13/2020 07/17/2020 Last Assessment & Plan: Assessment: Hypokalemia PLAN: -K-dur 40 mEq PO x 1. -Monitor: signs, symptoms, disease progression, disease regression. -Evaluate: test results, medication effectiveness, response to treatment. documented as of this encounter (statuses as of 08/01/2022) [facility] History of Past illness Narrative* Problem Noted Date Resolved Date Hypomagnesemia 07/13/2020 07/17/2020 Last Assessment & Plan: Assessment: Hypomagesemia PLAN: -Magnesium sulfate 2 gm IV. -Monitor: signs, symptoms, disease progression, disease regression. -Evaluate: test results, medication effectiveness, response to treatment. Hypokalemia 07/13/2020 07/17/2020 Last Assessment & Plan: Assessment: Hypokalemia PLAN: -K-dur 40 mEq PO x 1. -Monitor: signs, symptoms, disease progression, disease regression. -Evaluate: test results, medication effectiveness, response to treatment. documented as of this encounter (statuses as of 08/08/2022) [facility] History of Past illness Narrative* Problem Noted Date Resolved Date Hypomagnesemia 07/13/2020 07/17/2020 Last Assessment & Plan: Assessment: Hypomagesemia PLAN: -Magnesium sulfate 2 gm IV. -Monitor: signs, symptoms, disease progression, disease regression. -Evaluate: test results, medication effectiveness, response to treatment. Hypokalemia 07/13/2020 07/17/2020 Last Assessment & Plan: Assessment: Hypokalemia PLAN: -K-dur 40 mEq PO x 1. -Monitor: signs, symptoms, disease progression, disease regression. -Evaluate: test results, medication effectiveness, response to treatment. documented as of this encounter (statuses as of 08/09/2022) [facility] History of Past illness Narrative* Problem Noted Date Resolved Date Hypomagnesemia 07/13/2020 07/17/2020 Last Assessment & Plan: Assessment: Hypomagesemia PLAN: -Magnesium sulfate 2 gm IV. -Monitor: signs, symptoms, disease progression, disease regression. -Evaluate: test results, medication effectiveness, response to treatment. Hypokalemia 07/13/2020 07/17/2020 Last Assessment & Plan: Assessment: Hypokalemia PLAN: -K-dur 40 mEq PO x 1. -Monitor: signs, symptoms, disease progression, disease regression. -Evaluate: test results, medication effectiveness, response to treatment. documented as of this encounter (statuses as of 08/13/2022) [facility] History of Past illness Narrative* Problem Noted Date Resolved Date Hypomagnesemia 07/13/2020 07/17/2020 Last Assessment & Plan: Assessment: Hypomagesemia PLAN: -Magnesium sulfate 2 gm IV. -Monitor: signs, symptoms, disease progression, disease regression. -Evaluate: test results, medication effectiveness, response to treatment. Hypokalemia 07/13/2020 07/17/2020 Last Assessment & Plan: Assessment: Hypokalemia PLAN: -K-dur 40 mEq PO x 1. -Monitor: signs, symptoms, disease progression, disease regression. -Evaluate: test results, medication effectiveness, response to treatment. documented as of this encounter (statuses as of 08/13/2022) [facility] History of Past illness Narrative* Problem Noted Date Resolved Date Hypomagnesemia 07/13/2020 07/17/2020 Last Assessment & Plan: Assessment: Hypomagesemia PLAN: -Magnesium sulfate 2 gm IV. -Monitor: signs, symptoms, disease progression, disease regression. -Evaluate: test results, medication effectiveness, response to treatment. Hypokalemia 07/13/2020 07/17/2020 Last Assessment & Plan: Assessment: Hypokalemia PLAN: -K-dur 40 mEq PO x 1. -Monitor: signs, symptoms, disease progression, disease regression. -Evaluate: test results, medication effectiveness, response to treatment. documented as of this encounter (statuses as of 08/13/2022) [facility] History of Past illness Narrative* Problem Noted Date Resolved Date Hypomagnesemia 07/13/2020 07/17/2020 Last Assessment & Plan: Assessment: Hypomagesemia PLAN: -Magnesium sulfate 2 gm IV. -Monitor: signs, symptoms, disease progression, disease regression. -Evaluate: test results, medication effectiveness, response to treatment. Hypokalemia 07/13/2020 07/17/2020 Last Assessment & Plan: Assessment: Hypokalemia PLAN: -K-dur 40 mEq PO x 1. -Monitor: signs, symptoms, disease progression, disease regression. -Evaluate: test results, medication effectiveness, response to treatment. documented as of this encounter (statuses as of 08/20/2022) [facility] History of Past illness Narrative* Problem Noted Date Resolved Date Hypomagnesemia 07/13/2020 07/17/2020 Last Assessment & Plan: Assessment: Hypomagesemia PLAN: -Magnesium sulfate 2 gm IV. -Monitor: signs, symptoms, disease progression, disease regression. -Evaluate: test results, medication effectiveness, response to treatment. Hypokalemia 07/13/2020 07/17/2020 Last Assessment & Plan: Assessment: Hypokalemia PLAN: -K-dur 40 mEq PO x 1. -Monitor: signs, symptoms, disease progression, disease regression. -Evaluate: test results, medication effectiveness, response to treatment. documented as of this encounter (statuses as of 09/03/2022) [facility] History of Past illness Narrative* Problem Noted Date Resolved Date Hypomagnesemia 07/13/2020 07/17/2020 Last Assessment & Plan: Assessment: Hypomagesemia PLAN: -Magnesium sulfate 2 gm IV. -Monitor: signs, symptoms, disease progression, disease regression. -Evaluate: test results, medication effectiveness, response to treatment. Hypokalemia 07/13/2020 07/17/2020 Last Assessment & Plan: Assessment: Hypokalemia PLAN: -K-dur 40 mEq PO x 1. -Monitor: signs, symptoms, disease progression, disease regression. -Evaluate: test results, medication effectiveness, response to treatment. documented as of this encounter (statuses as of 09/18/2022) [facility] History of Past illness Narrative* Problem Noted Date Resolved Date Hypomagnesemia 07/13/2020 07/17/2020 Last Assessment & Plan: Assessment: Hypomagesemia PLAN: -Magnesium sulfate 2 gm IV. -Monitor: signs, symptoms, disease progression, disease regression. -Evaluate: test results, medication effectiveness, response to treatment. Hypokalemia 07/13/2020 07/17/2020 Last Assessment & Plan: Assessment: Hypokalemia PLAN: -K-dur 40 mEq PO x 1. -Monitor: signs, symptoms, disease progression, disease regression. -Evaluate: test results, medication effectiveness, response to treatment. documented as of this encounter (statuses as of 09/18/2022) [facility] History of Past illness Narrative* Problem Noted Date Resolved Date Hypomagnesemia 07/13/2020 07/17/2020 Last Assessment & Plan: Assessment: Hypomagesemia PLAN: -Magnesium sulfate 2 gm IV. -Monitor: signs, symptoms, disease progression, disease regression. -Evaluate: test results, medication effectiveness, response to treatment. Hypokalemia 07/13/2020 07/17/2020 Last Assessment & Plan: Assessment: Hypokalemia PLAN: -K-dur 40 mEq PO x 1. -Monitor: signs, symptoms, disease progression, disease regression. -Evaluate: test results, medication effectiveness, response to treatment. documented as of this encounter (statuses as of 10/08/2022) [facility] History of Past illness Narrative* Problem Noted Date Resolved Date Hypomagnesemia 07/13/2020 07/17/2020 Last Assessment & Plan: Assessment: Hypomagesemia PLAN: -Magnesium sulfate 2 gm IV. -Monitor: signs, symptoms, disease progression, disease regression. -Evaluate: test results, medication effectiveness, response to treatment. Hypokalemia 07/13/2020 07/17/2020 Last Assessment & Plan: Assessment: Hypokalemia PLAN: -K-dur 40 mEq PO x 1. -Monitor: signs, symptoms, disease progression, disease regression. -Evaluate: test results, medication effectiveness, response to treatment. documented as of this encounter (statuses as of 10/10/2022) [facility] History of Past illness Narrative* Problem Noted Date Resolved Date Hypomagnesemia 07/13/2020 07/17/2020 Last Assessment & Plan: Assessment: Hypomagesemia PLAN: -Magnesium sulfate 2 gm IV. -Monitor: signs, symptoms, disease progression, disease regression. -Evaluate: test results, medication effectiveness, response to treatment. Hypokalemia 07/13/2020 07/17/2020 Last Assessment & Plan: Assessment: Hypokalemia PLAN: -K-dur 40 mEq PO x 1. -Monitor: signs, symptoms, disease progression, disease regression. -Evaluate: test results, medication effectiveness, response to treatment. documented as of this encounter (statuses as of 10/25/2022) [facility] History of Past illness Narrative* Problem Noted Date Resolved Date Hypomagnesemia 07/13/2020 07/17/2020 Last Assessment & Plan: Assessment: Hypomagesemia PLAN: -Magnesium sulfate 2 gm IV. -Monitor: signs, symptoms, disease progression, disease regression. -Evaluate: test results, medication effectiveness, response to treatment. Hypokalemia 07/13/2020 07/17/2020 Last Assessment & Plan: Assessment: Hypokalemia PLAN: -K-dur 40 mEq PO x 1. -Monitor: signs, symptoms, disease progression, disease regression. -Evaluate: test results, medication effectiveness, response to treatment. documented as of this encounter (statuses as of 10/31/2022) [facility] History of Past illness Narrative* Problem Noted Date Resolved Date Hypomagnesemia 07/13/2020 07/17/2020 Last Assessment & Plan: Assessment: Hypomagesemia PLAN: -Magnesium sulfate 2 gm IV. -Monitor: signs, symptoms, disease progression, disease regression. -Evaluate: test results, medication effectiveness, response to treatment. Hypokalemia 07/13/2020 07/17/2020 Last Assessment & Plan: Assessment: Hypokalemia PLAN: -K-dur 40 mEq PO x 1. -Monitor: signs, symptoms, disease progression, disease regression. -Evaluate: test results, medication effectiveness, response to treatment. documented as of this encounter (statuses as of 10/31/2022) [facility] History of Past illness Narrative* Problem Noted Date Resolved Date Hypomagnesemia 07/13/2020 07/17/2020 Last Assessment & Plan: Assessment: Hypomagesemia PLAN: -Magnesium sulfate 2 gm IV. -Monitor: signs, symptoms, disease progression, disease regression. -Evaluate: test results, medication effectiveness, response to treatment. Hypokalemia 07/13/2020 07/17/2020 Last Assessment & Plan: Assessment: Hypokalemia PLAN: -K-dur 40 mEq PO x 1. -Monitor: signs, symptoms, disease progression, disease regression. -Evaluate: test results, medication effectiveness, response to treatment. documented as of this encounter (statuses as of 11/04/2022) [facility] History of Past illness Narrative* Problem Noted Date Resolved Date Hypomagnesemia 07/13/2020 07/17/2020 Last Assessment & Plan: Assessment: Hypomagesemia PLAN: -Magnesium sulfate 2 gm IV. -Monitor: signs, symptoms, disease progression, disease regression. -Evaluate: test results, medication effectiveness, response to treatment. Hypokalemia 07/13/2020 07/17/2020 Last Assessment & Plan: Assessment: Hypokalemia PLAN: -K-dur 40 mEq PO x 1. -Monitor: signs, symptoms, disease progression, disease regression. -Evaluate: test results, medication effectiveness, response to treatment. documented as of this encounter (statuses as of 11/12/2022) [facility] History of Past illness Narrative* Problem Noted Date Resolved Date Hypomagnesemia 07/13/2020 07/17/2020 Last Assessment & Plan: Assessment: Hypomagesemia PLAN: -Magnesium sulfate 2 gm IV. -Monitor: signs, symptoms, disease progression, disease regression. -Evaluate: test results, medication effectiveness, response to treatment. Hypokalemia 07/13/2020 07/17/2020 Last Assessment & Plan: Assessment: Hypokalemia PLAN: -K-dur 40 mEq PO x 1. -Monitor: signs, symptoms, disease progression, disease regression. -Evaluate: test results, medication effectiveness, response to treatment. documented as of this encounter (statuses as of 11/20/2022) [facility] History of Past illness Narrative* Problem Noted Date Resolved Date Hypomagnesemia 07/13/2020 07/17/2020 Last Assessment & Plan: Assessment: Hypomagesemia PLAN: -Magnesium sulfate 2 gm IV. -Monitor: signs, symptoms, disease progression, disease regression. -Evaluate: test results, medication effectiveness, response to treatment. Hypokalemia 07/13/2020 07/17/2020 Last Assessment & Plan: Assessment: Hypokalemia PLAN: -K-dur 40 mEq PO x 1. -Monitor: signs, symptoms, disease progression, disease regression. -Evaluate: test results, medication effectiveness, response to treatment. documented as of this encounter (statuses as of 01/02/2023) [facility] History of Past illness Narrative* Problem Noted Date Diagnosed Date Resolved Date Hypomagnesemia 07/13/2020 07/17/2020 Last Assessment & Plan: Assessment: Hypomagesemia PLAN: -Magnesium sulfate 2 gm IV. -Monitor: signs, symptoms, disease progression, disease regression. -Evaluate: test results, medication effectiveness, response to treatment. Hypokalemia 07/13/2020 07/17/2020 Last Assessment & Plan: Assessment: Hypokalemia PLAN: -K-dur 40 mEq PO x 1. -Monitor: signs, symptoms, disease progression, disease regression. -Evaluate: test results, medication effectiveness, response to treatment. documented as of this encounter (statuses as of 01/30/2023) [facility] History of Past illness Narrative* Problem Noted Date Diagnosed Date Resolved Date Hypomagnesemia 07/13/2020 07/17/2020 Last Assessment & Plan: Assessment: Hypomagesemia PLAN: -Magnesium sulfate 2 gm IV. -Monitor: signs, symptoms, disease progression, disease regression. -Evaluate: test results, medication effectiveness, response to treatment. Hypokalemia 07/13/2020 07/17/2020 Last Assessment & Plan: Assessment: Hypokalemia PLAN: -K-dur 40 mEq PO x 1. -Monitor: signs, symptoms, disease progression, disease regression. -Evaluate: test results, medication effectiveness, response to treatment. documented as of this encounter (statuses as of 02/06/2023) [facility] History of Past illness Narrative* Problem Noted Date Diagnosed Date Resolved Date Hypomagnesemia 07/13/2020 07/17/2020 Last Assessment & Plan: Assessment: Hypomagesemia PLAN: -Magnesium sulfate 2 gm IV. -Monitor: signs, symptoms, disease progression, disease regression. -Evaluate: test results, medication effectiveness, response to treatment. Hypokalemia 07/13/2020 07/17/2020 Last Assessment & Plan: Assessment: Hypokalemia PLAN: -K-dur 40 mEq PO x 1. -Monitor: signs, symptoms, disease progression, disease regression. -Evaluate: test results, medication effectiveness, response to treatment. documented as of this encounter (statuses as of 03/28/2023) [facility] History of Past illness Narrative* Problem Noted Date Diagnosed Date Resolved Date Hypomagnesemia 07/13/2020 07/17/2020 Last Assessment & Plan: Assessment: Hypomagesemia PLAN: -Magnesium sulfate 2 gm IV. -Monitor: signs, symptoms, disease progression, disease regression. -Evaluate: test results, medication effectiveness, response to treatment. Hypokalemia 07/13/2020 07/17/2020 Last Assessment & Plan: Assessment: Hypokalemia PLAN: -K-dur 40 mEq PO x 1. -Monitor: signs, symptoms, disease progression, disease regression. -Evaluate: test results, medication effectiveness, response to treatment. documented as of this encounter (statuses as of 04/26/2023) [facility] History of Past illness Narrative* Problem Noted Date Diagnosed Date Resolved Date Hypomagnesemia 07/13/2020 07/17/2020 Last Assessment & Plan: Assessment: Hypomagesemia PLAN: -Magnesium sulfate 2 gm IV. -Monitor: signs, symptoms, disease progression, disease regression. -Evaluate: test results, medication effectiveness, response to treatment. Hypokalemia 07/13/2020 07/17/2020 Last Assessment & Plan: Assessment: Hypokalemia PLAN: -K-dur 40 mEq PO x 1. -Monitor: signs, symptoms, disease progression, disease regression. -Evaluate: test results, medication effectiveness, response to treatment. documented as of this encounter (statuses as of 05/07/2023) [facility] History of Past illness Narrative* Problem Noted Date Diagnosed Date Resolved Date Hypomagnesemia 07/13/2020 07/17/2020 Last Assessment & Plan: Assessment: Hypomagesemia PLAN: -Magnesium sulfate 2 gm IV. -Monitor: signs, symptoms, disease progression, disease regression. -Evaluate: test results, medication effectiveness, response to treatment. Hypokalemia 07/13/2020 07/17/2020 Last Assessment & Plan: Assessment: Hypokalemia PLAN: -K-dur 40 mEq PO x 1. -Monitor: signs, symptoms, disease progression, disease regression. -Evaluate: test results, medication effectiveness, response to treatment. documented as of this encounter (statuses as of 05/07/2023) [facility] History of Past illness Narrative* Problem Noted Date Diagnosed Date Resolved Date Hypomagnesemia 07/13/2020 07/17/2020 Last Assessment & Plan: Assessment: Hypomagesemia PLAN: -Magnesium sulfate 2 gm IV. -Monitor: signs, symptoms, disease progression, disease regression. -Evaluate: test results, medication effectiveness, response to treatment. Hypokalemia 07/13/2020 07/17/2020 Last Assessment & Plan: Assessment: Hypokalemia PLAN: -K-dur 40 mEq PO x 1. -Monitor: signs, symptoms, disease progression, disease regression. -Evaluate: test results, medication effectiveness, response to treatment. documented as of this encounter (statuses as of 05/21/2023) [facility] History of Past illness Narrative* Problem Noted Date Diagnosed Date Resolved Date Hypomagnesemia 07/13/2020 07/17/2020 Last Assessment & Plan: Assessment: Hypomagesemia PLAN: -Magnesium sulfate 2 gm IV. -Monitor: signs, symptoms, disease progression, disease regression. -Evaluate: test results, medication effectiveness, response to treatment. Hypokalemia 07/13/2020 07/17/2020 Last Assessment & Plan: Assessment: Hypokalemia PLAN: -K-dur 40 mEq PO x 1. -Monitor: signs, symptoms, disease progression, disease regression. -Evaluate: test results, medication effectiveness, response to treatment. documented as of this encounter (statuses as of 05/22/2023) [facility] History of Past illness Narrative* Problem Noted Date Diagnosed Date Resolved Date Hypomagnesemia 07/13/2020 07/17/2020 Last Assessment & Plan: Assessment: Hypomagesemia PLAN: -Magnesium sulfate 2 gm IV. -Monitor: signs, symptoms, disease progression, disease regression. -Evaluate: test results, medication effectiveness, response to treatment. Hypokalemia 07/13/2020 07/17/2020 Last Assessment & Plan: Assessment: Hypokalemia PLAN: -K-dur 40 mEq PO x 1. -Monitor: signs, symptoms, disease progression, disease regression. -Evaluate: test results, medication effectiveness, response to treatment. documented as of this encounter (statuses as of 05/24/2023) [facility] History of Past illness Narrative* Problem Noted Date Diagnosed Date Resolved Date Hypomagnesemia 07/13/2020 07/17/2020 Last Assessment & Plan: Assessment: Hypomagesemia PLAN: -Magnesium sulfate 2 gm IV. -Monitor: signs, symptoms, disease progression, disease regression. -Evaluate: test results, medication effectiveness, response to treatment. Hypokalemia 07/13/2020 07/17/2020 Last Assessment & Plan: Assessment: Hypokalemia PLAN: -K-dur 40 mEq PO x 1. -Monitor: signs, symptoms, disease progression, disease regression. -Evaluate: test results, medication effectiveness, response to treatment. documented as of this encounter (statuses as of 05/24/2023) [facility] History of Past illness Narrative* Problem Noted Date Diagnosed Date Resolved Date Hypomagnesemia 07/13/2020 07/17/2020 Last Assessment & Plan: Assessment: Hypomagesemia PLAN: -Magnesium sulfate 2 gm IV. -Monitor: signs, symptoms, disease progression, disease regression. -Evaluate: test results, medication effectiveness, response to treatment. Hypokalemia 07/13/2020 07/17/2020 Last Assessment & Plan: Assessment: Hypokalemia PLAN: -K-dur 40 mEq PO x 1. -Monitor: signs, symptoms, disease progression, disease regression. -Evaluate: test results, medication effectiveness, response to treatment. documented as of this encounter (statuses as of 05/24/2023) [facility] History of Past illness Narrative* Problem Noted Date Diagnosed Date Resolved Date Hypomagnesemia 07/13/2020 07/17/2020 Last Assessment & Plan: Assessment: Hypomagesemia PLAN: -Magnesium sulfate 2 gm IV. -Monitor: signs, symptoms, disease progression, disease regression. -Evaluate: test results, medication effectiveness, response to treatment. Hypokalemia 07/13/2020 07/17/2020 Last Assessment & Plan: Assessment: Hypokalemia PLAN: -K-dur 40 mEq PO x 1. -Monitor: signs, symptoms, disease progression, disease regression. -Evaluate: test results, medication effectiveness, response to treatment. documented as of this encounter (statuses as of 06/19/2023) [facility] History of Past illness Narrative* Problem Noted Date Diagnosed Date Resolved Date Hypomagnesemia 07/13/2020 07/17/2020 Last Assessment & Plan: Assessment: Hypomagesemia PLAN: -Magnesium sulfate 2 gm IV. -Monitor: signs, symptoms, disease progression, disease regression. -Evaluate: test results, medication effectiveness, response to treatment. Hypokalemia 07/13/2020 07/17/2020 Last Assessment & Plan: Assessment: Hypokalemia PLAN: -K-dur 40 mEq PO x 1. -Monitor: signs, symptoms, disease progression, disease regression. -Evaluate: test results, medication effectiveness, response to treatment. documented as of this encounter (statuses as of 09/09/2023) [facility] History of Past illness Narrative* Problem Noted Date Diagnosed Date Resolved Date Hypomagnesemia 07/13/2020 07/17/2020 Last Assessment & Plan: Assessment: Hypomagesemia PLAN: -Magnesium sulfate 2 gm IV. -Monitor: signs, symptoms, disease progression, disease regression. -Evaluate: test results, medication effectiveness, response to treatment. Hypokalemia 07/13/2020 07/17/2020 Last Assessment & Plan: Assessment: Hypokalemia PLAN: -K-dur 40 mEq PO x 1. -Monitor: signs, symptoms, disease progression, disease regression. -Evaluate: test results, medication effectiveness, response to treatment. documented as of this encounter (statuses as of 10/07/2023) [facility] History of Past illness Narrative* Problem Noted Date Diagnosed Date Resolved Date Hypomagnesemia 07/13/2020 07/17/2020 Last Assessment & Plan: Assessment: Hypomagesemia PLAN: -Magnesium sulfate 2 gm IV. -Monitor: signs, symptoms, disease progression, disease regression. -Evaluate: test results, medication effectiveness, response to treatment. Hypokalemia 07/13/2020 07/17/2020 Last Assessment & Plan: Assessment: Hypokalemia PLAN: -K-dur 40 mEq PO x 1. -Monitor: signs, symptoms, disease progression, disease regression. -Evaluate: test results, medication effectiveness, response to treatment. documented as of this encounter (statuses as of 10/07/2023) [facility] History of Past illness Narrative* Problem Noted Date Diagnosed Date Resolved Date Hypomagnesemia 07/13/2020 07/17/2020 Last Assessment & Plan: Assessment: Hypomagesemia PLAN: -Magnesium sulfate 2 gm IV. -Monitor: signs, symptoms, disease progression, disease regression. -Evaluate: test results, medication effectiveness, response to treatment. Hypokalemia 07/13/2020 07/17/2020 Last Assessment & Plan: Assessment: Hypokalemia PLAN: -K-dur 40 mEq PO x 1. -Monitor: signs, symptoms, disease progression, disease regression. -Evaluate: test results, medication effectiveness, response to treatment. documented as of this encounter (statuses as of 10/07/2023) [facility] History of Past illness Narrative* Problem Noted Date Diagnosed Date Resolved Date Hypomagnesemia 07/13/2020 07/17/2020 Last Assessment & Plan: Assessment: Hypomagesemia PLAN: -Magnesium sulfate 2 gm IV. -Monitor: signs, symptoms, disease progression, disease regression. -Evaluate: test results, medication effectiveness, response to treatment. Hypokalemia 07/13/2020 07/17/2020 Last Assessment & Plan: Assessment: Hypokalemia PLAN: -K-dur 40 mEq PO x 1. -Monitor: signs, symptoms, disease progression, disease regression. -Evaluate: test results, medication effectiveness, response to treatment. documented as of this encounter (statuses as of 10/31/2023) [facility] Diagnosis Multiple myeloma not having achieved remission- Primary Multiple myeloma, without mention of having achieved remission [facility] Diagnosis Multiple myeloma, remission status unspecified (HCC) [facility] Diagnosis Multiple myeloma, remission status unspecified (HCC)- Primary [facility] Diagnosis Multiple myeloma not having achieved remission- Primary Multiple myeloma, without mention of having achieved remission [facility]* Diagnosis Multiple myeloma not having achieved remission- Primary Multiple myeloma, without mention of having achieved remission [facility]* Diagnosis Multiple myeloma, remission status unspecified (HCC) [facility]* Diagnosis Neuropathy- Primary Mononeuritis of unspecified site Numbness and tingling Disturbance of skin sensation [facility] Diagnosis Multiple myeloma, remission status unspecified (HCC) [facility]* Diagnosis Multiple myeloma, remission status unspecified (HCC)- Primary [facility]* Diagnosis Multiple myeloma in remission (HCC)- Primary Multiple myeloma in remission Multiple myeloma not having achieved remission Multiple myeloma, without mention of having achieved remission [facility]* Diagnosis Multiple myeloma in remission (HCC)- Primary Multiple myeloma in remission Acute bronchitis, unspecified organism Acute cough [facility] Diagnosis Multiple myeloma, remission status unspecified (HCC) [facility]* Diagnosis Multiple myeloma, remission status unspecified (HCC) [facility]* Diagnosis Neuropathy- Primary Mononeuritis of unspecified site Numbness and tingling Disturbance of skin sensation [facility] Diagnosis Multiple myeloma in remission (HCC)- Primary Multiple myeloma in remission [facility]* Diagnosis Multiple myeloma, remission status unspecified (HCC) [facility]* Diagnosis Multiple myeloma in remission (HCC)- Primary Multiple myeloma in remission [facility]* Diagnosis Neuropathy Mononeuritis of unspecified site Numbness and tingling Disturbance of skin sensation [facility] Diagnosis Neuropathy Mononeuritis of unspecified site Numbness and tingling Disturbance of skin sensation [facility]* Diagnosis Multiple myeloma, remission status unspecified (HCC) Neuropathy- Primary Mononeuritis of unspecified site [facility]* Diagnosis Multiple myeloma, remission status unspecified (HCC) [facility]* Diagnosis Multiple myeloma in remission (HCC)- Primary Multiple myeloma in remission Rib pain Chest pain, unspecified [facility]* Diagnosis Rib pain Chest pain, unspecified [facility]* Diagnosis Multiple myeloma, remission status unspecified (HCC) [facility]* Diagnosis Multiple myeloma in remission (HCC)- Primary Multiple myeloma in remission Chemotherapy-induced neutropenia (HCC) Drug induced neutropenia Stage 3a chronic kidney disease (HCC) Chemotherapy-induced thrombocytopenia Other secondary thrombocytopenia Neuropathy- Primary Mononeuritis of unspecified site [facility] Diagnosis Neuropathy- Primary Mononeuritis of unspecified site Numbness and tingling Disturbance of skin sensation Right leg weakness Other musculoskeletal symptoms referable to limbs Pain in right hip Pain in joint, pelvic region and thigh 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 [facility]* Diagnosis Multiple myeloma, remission status unspecified (HCC) [facility] Diagnosis Multiple myeloma, remission status unspecified (HCC) [facility] Diagnosis Multiple myeloma, remission status unspecified (HCC)- Primary [facility]* Diagnosis Multiple myeloma in remission (HCC)- Primary Multiple myeloma in remission Lung nodules Other nonspecific abnormal finding of lung field Pain of right hip [facility] Diagnosis Neuropathy- Primary Mononeuritis of unspecified site Numbness and tingling Disturbance of skin sensation Right leg weakness Other musculoskeletal symptoms referable to limbs 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 [facility]* Diagnosis Multiple myeloma, remission status unspecified (HCC) [facility]* Diagnosis Lung nodules Other nonspecific abnormal finding of lung field [facility] Diagnosis Pain of right hip [facility] Diagnosis Lung nodules Other nonspecific abnormal finding of lung field [facility]* Diagnosis Multiple myeloma, remission status unspecified (HCC) [facility]* Diagnosis Multiple myeloma, remission status unspecified (HCC) [facility]* Diagnosis Multiple myeloma, remission status unspecified (HCC) [facility]* Diagnosis Neuropathy- Primary Mononeuritis of unspecified site Numbness and tingling Disturbance of skin sensation Right leg weakness Other musculoskeletal symptoms referable to limbs 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 Degeneration of lumbar or lumbosacral intervertebral disc [facility] Multiple myeloma, remission status unspecified (HCC) [facility] Diagnosis Multiple myeloma in remission (HCC)- Primary Multiple myeloma in remission Stage 3b chronic kidney disease (HCC) [facility] Diagnosis Stage 3b chronic kidney disease (HCC)- Primary [facility] Diagnosis Multiple myeloma, remission status unspecified (HCC)- Primary [facility] Diagnosis Neuropathy Mononeuritis of unspecified site Numbness and tingling Disturbance of skin sensation [facility] Diagnosis Multiple myeloma in remission (HCC)- Primary Multiple myeloma in remission Lung nodules Other nonspecific abnormal finding of lung field Drug-induced constipation Other constipation Stage 3b chronic kidney disease (HCC) Skin cancer Unspecified malignant neoplasm of skin, site unspecified [facility] Diagnosis Spinal stenosis, lumbar region with neurogenic claudication- Primary Acetabulum fracture (HCC) Closed fracture of acetabulum 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) Multiple myeloma, without mention of having achieved remission Severe pain Multiple myeloma not having achieved remission Multiple myeloma, without mention of having achieved remission Dural tear Other dural tear Multiple myeloma not having achieved remission Multiple myeloma, without mention of having achieved remission Blood glucose elevated Other abnormal glucose History of DVT (deep vein thrombosis) Personal history of venous thrombosis and embolism Nondisplaced avulsion fracture of unsp ilium, init for opn fx S/P lumbar spinal fusion Arthrodesis status Acute postoperative pain Other acute postoperative pain Dural tear Other dural tear Stage 3a chronic kidney disease (HCC) Hypomagnesemia Disorders of magnesium metabolism Hypokalemia Hypopotassemia Thrombocytopenia Thrombocytopenia, unspecified Hospital discharge follow-up Other follow-up examination Confusion Unspecified psychosis Sinusitis Unspecified sinusitis (chronic) Hypertensive kidney disease with stage 3b chronic kidney disease (HCC)- Primary Stage 3b chronic kidney disease (HCC) Multiple myeloma not having achieved remission Multiple myeloma, without mention of having achieved remission Anemia of renal disease Anemia in chronic kidney disease Secondary renal hyperparathyroidism (HCC) Secondary hyperparathyroidism (of renal origin) [facility] Spinal stenosis, lumbar region with neurogenic claudication- Primary Acetabulum fracture (HCC) Closed fracture of acetabulum 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) Multiple myeloma, without mention of having achieved remission Severe pain Multiple myeloma not having achieved remission Multiple myeloma, without mention of having achieved remission Dural tear Other dural tear Multiple myeloma not having achieved remission Multiple myeloma, without mention of having achieved remission Blood glucose elevated Other abnormal glucose History of DVT (deep vein thrombosis) Personal history of venous thrombosis and embolism Nondisplaced avulsion fracture of unsp ilium, init for opn fx S/P lumbar spinal fusion Arthrodesis status Acute postoperative pain Other acute postoperative pain Dural tear Other dural tear Stage 3a chronic kidney disease (HCC) Hypomagnesemia Disorders of magnesium metabolism Hypokalemia Hypopotassemia Thrombocytopenia Thrombocytopenia, unspecified Hospital discharge follow-up Other follow-up examination Confusion Unspecified psychosis Sinusitis Unspecified sinusitis (chronic) Neuropathy- Primary Mononeuritis of unspecified site Numbness and tingling Disturbance of skin sensation Degeneration of lumbar intervertebral disc Degeneration of lumbar or lumbosacral intervertebral disc Right leg weakness Other musculoskeletal symptoms referable to limbs [facility] Diagnosis Spinal stenosis, lumbar region with neurogenic claudication- Primary Acetabulum fracture (HCC) Closed fracture of acetabulum 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) Multiple myeloma, without mention of having achieved remission Severe pain Multiple myeloma not having achieved remission Multiple myeloma, without mention of having achieved remission Dural tear Other dural tear Multiple myeloma not having achieved remission Multiple myeloma, without mention of having achieved remission Blood glucose elevated Other abnormal glucose History of DVT (deep vein thrombosis) Personal history of venous thrombosis and embolism Nondisplaced avulsion fracture of unsp ilium, init for opn fx S/P lumbar spinal fusion Arthrodesis status Acute postoperative pain Other acute postoperative pain Dural tear Other dural tear Stage 3a chronic kidney disease (HCC) Hypomagnesemia Disorders of magnesium metabolism Hypokalemia Hypopotassemia Thrombocytopenia Thrombocytopenia, unspecified Hospital discharge follow-up Other follow-up examination Confusion Unspecified psychosis Sinusitis Unspecified sinusitis (chronic) Multiple myeloma, remission status unspecified (HCC) [facility] Spinal stenosis, lumbar region with neurogenic claudication- Primary Acetabulum fracture (HCC) Closed fracture of acetabulum 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) Multiple myeloma, without mention of having achieved remission Severe pain Multiple myeloma not having achieved remission Multiple myeloma, without mention of having achieved remission Dural tear Other dural tear Multiple myeloma not having achieved remission Multiple myeloma, without mention of having achieved remission Blood glucose elevated Other abnormal glucose History of DVT (deep vein thrombosis) Personal history of venous thrombosis and embolism Nondisplaced avulsion fracture of unsp ilium, init for opn fx S/P lumbar spinal fusion Arthrodesis status Acute postoperative pain Other acute postoperative pain Dural tear Other dural tear Stage 3a chronic kidney disease (HCC) Hypomagnesemia Disorders of magnesium metabolism Hypokalemia Hypopotassemia Thrombocytopenia Thrombocytopenia, unspecified Hospital discharge follow-up Other follow-up examination Confusion Unspecified psychosis Sinusitis Unspecified sinusitis (chronic) Spinal stenosis, lumbar region with neurogenic claudication S/P lumbar fusion Arthrodesis status [facility] Diagnosis Spinal stenosis, lumbar region with neurogenic claudication- Primary Acetabulum fracture (HCC) Closed fracture of acetabulum 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) Multiple myeloma, without mention of having achieved remission Severe pain Multiple myeloma not having achieved remission Multiple myeloma, without mention of having achieved remission Dural tear Other dural tear Multiple myeloma not having achieved remission Multiple myeloma, without mention of having achieved remission Blood glucose elevated Other abnormal glucose History of DVT (deep vein thrombosis) Personal history of venous thrombosis and embolism Nondisplaced avulsion fracture of unsp ilium, init for opn fx S/P lumbar spinal fusion Arthrodesis status Acute postoperative pain Other acute postoperative pain Dural tear Other dural tear Stage 3a chronic kidney disease (HCC) Hypomagnesemia Disorders of magnesium metabolism Hypokalemia Hypopotassemia Thrombocytopenia Thrombocytopenia, unspecified Hospital discharge follow-up Other follow-up examination Confusion Unspecified psychosis Sinusitis Unspecified sinusitis (chronic) Multiple myeloma, remission status unspecified (HCC) [facility] Diagnosis Spinal stenosis, lumbar region with neurogenic claudication- Primary Acetabulum fracture (HCC) Closed fracture of acetabulum 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) Multiple myeloma, without mention of having achieved remission Severe pain Multiple myeloma not having achieved remission Multiple myeloma, without mention of having achieved remission Dural tear Other dural tear Multiple myeloma not having achieved remission Multiple myeloma, without mention of having achieved remission Blood glucose elevated Other abnormal glucose History of DVT (deep vein thrombosis) Personal history of venous thrombosis and embolism Nondisplaced avulsion fracture of unsp ilium, init for opn fx S/P lumbar spinal fusion Arthrodesis status Acute postoperative pain Other acute postoperative pain Dural tear Other dural tear Stage 3a chronic kidney disease (HCC) Hypomagnesemia Disorders of magnesium metabolism Hypokalemia Hypopotassemia Thrombocytopenia Thrombocytopenia, unspecified Hospital discharge follow-up Other follow-up examination Confusion Unspecified psychosis Sinusitis Unspecified sinusitis (chronic) Lung nodules Other nonspecific abnormal finding of lung field [facility] Diagnosis Spinal stenosis, lumbar region with neurogenic claudication- Primary Acetabulum fracture (HCC) Closed fracture of acetabulum 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) Multiple myeloma, without mention of having achieved remission Severe pain Multiple myeloma not having achieved remission Multiple myeloma, without mention of having achieved remission Dural tear Other dural tear Multiple myeloma not having achieved remission Multiple myeloma, without mention of having achieved remission Blood glucose elevated Other abnormal glucose History of DVT (deep vein thrombosis) Personal history of venous thrombosis and embolism Nondisplaced avulsion fracture of unsp ilium, init for opn fx S/P lumbar spinal fusion Arthrodesis status Acute postoperative pain Other acute postoperative pain Dural tear Other dural tear Stage 3a chronic kidney disease (HCC) Hypomagnesemia Disorders of magnesium metabolism Hypokalemia Hypopotassemia Thrombocytopenia Thrombocytopenia, unspecified Hospital discharge follow-up Other follow-up examination Confusion Unspecified psychosis Sinusitis Unspecified sinusitis (chronic) S/P lumbar fusion Arthrodesis status [facility]* Diagnosis Spinal stenosis, lumbar region with neurogenic claudication- Primary Acetabulum fracture (HCC) Closed fracture of acetabulum 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) Multiple myeloma, without mention of having achieved remission Severe pain Multiple myeloma not having achieved remission Multiple myeloma, without mention of having achieved remission Dural tear Other dural tear Multiple myeloma not having achieved remission Multiple myeloma, without mention of having achieved remission Blood glucose elevated Other abnormal glucose History of DVT (deep vein thrombosis) Personal history of venous thrombosis and embolism Nondisplaced avulsion fracture of unsp ilium, init for opn fx S/P lumbar spinal fusion Arthrodesis status Acute postoperative pain Other acute postoperative pain Dural tear Other dural tear Stage 3a chronic kidney disease (HCC) Hypomagnesemia Disorders of magnesium metabolism Hypokalemia Hypopotassemia Thrombocytopenia Thrombocytopenia, unspecified Hospital discharge follow-up Other follow-up examination Confusion Unspecified psychosis Sinusitis Unspecified sinusitis (chronic) Multiple myeloma in remission (HCC)- Primary Multiple myeloma in remission Lung nodules Other nonspecific abnormal finding of lung field Stage 3b chronic kidney disease (HCC) [facility] Diagnosis Spinal stenosis, lumbar region with neurogenic claudication- Primary Acetabulum fracture (HCC) Closed fracture of acetabulum 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) Multiple myeloma, without mention of having achieved remission Severe pain Multiple myeloma not having achieved remission Multiple myeloma, without mention of having achieved remission Dural tear Other dural tear Multiple myeloma not having achieved remission Multiple myeloma, without mention of having achieved remission Blood glucose elevated Other abnormal glucose History of DVT (deep vein thrombosis) Personal history of venous thrombosis and embolism Nondisplaced avulsion fracture of unsp ilium, init for opn fx S/P lumbar spinal fusion Arthrodesis status Acute postoperative pain Other acute postoperative pain Dural tear Other dural tear Stage 3a chronic kidney disease (HCC) Hypomagnesemia Disorders of magnesium metabolism Hypokalemia Hypopotassemia Thrombocytopenia Thrombocytopenia, unspecified Hospital discharge follow-up Other follow-up examination Confusion Unspecified psychosis Sinusitis Unspecified sinusitis (chronic) Stage 3b chronic kidney disease (HCC) [facility]* Diagnosis Spinal stenosis, lumbar region with neurogenic claudication- Primary Acetabulum fracture (HCC) Closed fracture of acetabulum 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) Multiple myeloma, without mention of having achieved remission Severe pain Multiple myeloma not having achieved remission Multiple myeloma, without mention of having achieved remission Dural tear Other dural tear Multiple myeloma not having achieved remission Multiple myeloma, without mention of having achieved remission Blood glucose elevated Other abnormal glucose History of DVT (deep vein thrombosis) Personal history of venous thrombosis and embolism Nondisplaced avulsion fracture of unsp ilium, init for opn fx S/P lumbar spinal fusion Arthrodesis status Acute postoperative pain Other acute postoperative pain Dural tear Other dural tear Stage 3a chronic kidney disease (HCC) Hypomagnesemia Disorders of magnesium metabolism Hypokalemia Hypopotassemia Thrombocytopenia Thrombocytopenia, unspecified Hospital discharge follow-up Other follow-up examination Confusion Unspecified psychosis Sinusitis Unspecified sinusitis (chronic) Multiple myeloma, remission status unspecified (HCC) [facility]* Diagnosis Spinal stenosis, lumbar region with neurogenic claudication- Primary Acetabulum fracture (HCC) Closed fracture of acetabulum 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) Multiple myeloma, without mention of having achieved remission Severe pain Multiple myeloma not having achieved remission Multiple myeloma, without mention of having achieved remission Dural tear Other dural tear Multiple myeloma not having achieved remission Multiple myeloma, without mention of having achieved remission Blood glucose elevated Other abnormal glucose History of DVT (deep vein thrombosis) Personal history of venous thrombosis and embolism Nondisplaced avulsion fracture of unsp ilium, init for opn fx S/P lumbar spinal fusion Arthrodesis status Acute postoperative pain Other acute postoperative pain Dural tear Other dural tear Stage 3a chronic kidney disease (HCC) Hypomagnesemia Disorders of magnesium metabolism Hypokalemia Hypopotassemia Thrombocytopenia Thrombocytopenia, unspecified Hospital discharge follow-up Other follow-up examination Confusion Unspecified psychosis Sinusitis Unspecified sinusitis (chronic) Multiple myeloma in remission (HCC)- Primary Multiple myeloma in remission Neuropathy Mononeuritis of unspecified site Numbness and tingling Disturbance of skin sensation Chemotherapy induced diarrhea Diarrhea 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) [facility]* Diagnosis Spinal stenosis, lumbar region with neurogenic claudication- Primary Acetabulum fracture (HCC) Closed fracture of acetabulum 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) Multiple myeloma, without mention of having achieved remission Severe pain Multiple myeloma not having achieved remission Multiple myeloma, without mention of having achieved remission Dural tear Other dural tear Multiple myeloma not having achieved remission Multiple myeloma, without mention of having achieved remission Blood glucose elevated Other abnormal glucose History of DVT (deep vein thrombosis) Personal history of venous thrombosis and embolism Nondisplaced avulsion fracture of unsp ilium, init for opn fx S/P lumbar spinal fusion Arthrodesis status Acute postoperative pain Other acute postoperative pain Dural tear Other dural tear Stage 3a chronic kidney disease (HCC) Hypomagnesemia Disorders of magnesium metabolism Hypokalemia Hypopotassemia Thrombocytopenia Thrombocytopenia, unspecified Hospital discharge follow-up Other follow-up examination Confusion Unspecified psychosis Sinusitis Unspecified sinusitis (chronic) Multiple myeloma, remission status unspecified (HCC) [facility]* Diagnosis Spinal stenosis, lumbar region with neurogenic claudication- Primary Acetabulum fracture (HCC) Closed fracture of acetabulum 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) Multiple myeloma, without mention of having achieved remission Severe pain Multiple myeloma not having achieved remission Multiple myeloma, without mention of having achieved remission Dural tear Other dural tear Multiple myeloma not having achieved remission Multiple myeloma, without mention of having achieved remission Blood glucose elevated Other abnormal glucose History of DVT (deep vein thrombosis) Personal history of venous thrombosis and embolism Nondisplaced avulsion fracture of unsp ilium, init for opn fx S/P lumbar spinal fusion Arthrodesis status Acute postoperative pain Other acute postoperative pain Dural tear Other dural tear Stage 3a chronic kidney disease (HCC) Hypomagnesemia Disorders of magnesium metabolism Hypokalemia Hypopotassemia Thrombocytopenia Thrombocytopenia, unspecified Hospital discharge follow-up Other follow-up examination Confusion Unspecified psychosis Sinusitis Unspecified sinusitis (chronic) Hypertensive kidney disease with stage 3b chronic kidney disease (HCC)- Primary Stage 3b chronic kidney disease (HCC) Secondary renal hyperparathyroidism (HCC) Secondary hyperparathyroidism (of renal origin) Anemia of renal disease Anemia in chronic kidney disease Multiple myeloma not having achieved remission Multiple myeloma, without mention of having achieved remission [facility] Diagnosis Spinal stenosis, lumbar region with neurogenic claudication- Primary Acetabulum fracture (HCC) Closed fracture of acetabulum 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) Multiple myeloma, without mention of having achieved remission Severe pain Multiple myeloma not having achieved remission Multiple myeloma, without mention of having achieved remission Dural tear Other dural tear Multiple myeloma not having achieved remission Multiple myeloma, without mention of having achieved remission Blood glucose elevated Other abnormal glucose History of DVT (deep vein thrombosis) Personal history of venous thrombosis and embolism Nondisplaced avulsion fracture of unsp ilium, init for opn fx S/P lumbar spinal fusion Arthrodesis status Acute postoperative pain Other acute postoperative pain Dural tear Other dural tear Stage 3a chronic kidney disease (HCC) Hypomagnesemia Disorders of magnesium metabolism Hypokalemia Hypopotassemia Thrombocytopenia Thrombocytopenia, unspecified Hospital discharge follow-up Other follow-up examination Confusion Unspecified psychosis Sinusitis Unspecified sinusitis (chronic) Multiple myeloma, remission status unspecified (HCC) [facility]* Diagnosis Spinal stenosis, lumbar region with neurogenic claudication- Primary Acetabulum fracture (HCC) Closed fracture of acetabulum 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) Multiple myeloma, without mention of having achieved remission Severe pain Multiple myeloma not having achieved remission Multiple myeloma, without mention of having achieved remission Dural tear Other dural tear Multiple myeloma not having achieved remission Multiple myeloma, without mention of having achieved remission Blood glucose elevated Other abnormal glucose History of DVT (deep vein thrombosis) Personal history of venous thrombosis and embolism Nondisplaced avulsion fracture of unsp ilium, init for opn fx S/P lumbar spinal fusion Arthrodesis status Acute postoperative pain Other acute postoperative pain Dural tear Other dural tear Stage 3a chronic kidney disease (HCC) Hypomagnesemia Disorders of magnesium metabolism Hypokalemia Hypopotassemia Thrombocytopenia Thrombocytopenia, unspecified Hospital discharge follow-up Other follow-up examination Confusion Unspecified psychosis Sinusitis Unspecified sinusitis (chronic) Neuropathy- Primary Mononeuritis of unspecified site Numbness and tingling Disturbance of skin sensation Degeneration of intervertebral disc of lumbar region, unspecified whether pain present Pain in right hip Pain in joint, pelvic region and thigh [facility]* Diagnosis Spinal stenosis, lumbar region with neurogenic claudication- Primary Acetabulum fracture (HCC) Closed fracture of acetabulum 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) Multiple myeloma, without mention of having achieved remission Severe pain Multiple myeloma not having achieved remission Multiple myeloma, without mention of having achieved remission Dural tear Other dural tear Multiple myeloma not having achieved remission Multiple myeloma, without mention of having achieved remission Blood glucose elevated Other abnormal glucose History of DVT (deep vein thrombosis) Personal history of venous thrombosis and embolism Nondisplaced avulsion fracture of unsp ilium, init for opn fx S/P lumbar spinal fusion Arthrodesis status Acute postoperative pain Other acute postoperative pain Dural tear Other dural tear Stage 3a chronic kidney disease (HCC) Hypomagnesemia Disorders of magnesium metabolism Hypokalemia Hypopotassemia Thrombocytopenia Thrombocytopenia, unspecified Hospital discharge follow-up Other follow-up examination Confusion Unspecified psychosis Sinusitis Unspecified sinusitis (chronic) Multiple myeloma, remission status unspecified (HCC) [facility]* Diagnosis Spinal stenosis, lumbar region with neurogenic claudication- Primary Acetabulum fracture (HCC) Closed fracture of acetabulum 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) Multiple myeloma, without mention of having achieved remission Severe pain Multiple myeloma not having achieved remission Multiple myeloma, without mention of having achieved remission Dural tear Other dural tear Multiple myeloma not having achieved remission Multiple myeloma, without mention of having achieved remission Blood glucose elevated Other abnormal glucose History of DVT (deep vein thrombosis) Personal history of venous thrombosis and embolism Nondisplaced avulsion fracture of unsp ilium, init for opn fx S/P lumbar spinal fusion Arthrodesis status Acute postoperative pain Other acute postoperative pain Dural tear Other dural tear Stage 3a chronic kidney disease (HCC) Hypomagnesemia Disorders of magnesium metabolism Hypokalemia Hypopotassemia Thrombocytopenia Thrombocytopenia, unspecified Hospital discharge follow-up Other follow-up examination Confusion Unspecified psychosis Sinusitis Unspecified sinusitis (chronic) Multiple myeloma, remission status unspecified (HCC)- Primary [facility]* Diagnosis Spinal stenosis, lumbar region with neurogenic claudication- Primary Acetabulum fracture (HCC) Closed fracture of acetabulum 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) Multiple myeloma, without mention of having achieved remission Severe pain Multiple myeloma not having achieved remission Multiple myeloma, without mention of having achieved remission Dural tear Other dural tear Multiple myeloma not having achieved remission Multiple myeloma, without mention of having achieved remission Blood glucose elevated Other abnormal glucose History of DVT (deep vein thrombosis) Personal history of venous thrombosis and embolism Nondisplaced avulsion fracture of unsp ilium, init for opn fx S/P lumbar spinal fusion Arthrodesis status Acute postoperative pain Other acute postoperative pain Dural tear Other dural tear Stage 3a chronic kidney disease (HCC) Hypomagnesemia Disorders of magnesium metabolism Hypokalemia Hypopotassemia Thrombocytopenia Thrombocytopenia, unspecified Hospital discharge follow-up Other follow-up examination Confusion Unspecified psychosis Sinusitis Unspecified sinusitis (chronic) Multiple myeloma, remission status unspecified (HCC) [facility]* Diagnosis Spinal stenosis, lumbar region with neurogenic claudication- Primary Acetabulum fracture (HCC) Closed fracture of acetabulum 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) Multiple myeloma, without mention of having achieved remission Severe pain Multiple myeloma not having achieved remission Multiple myeloma, without mention of having achieved remission Dural tear Other dural tear Multiple myeloma not having achieved remission Multiple myeloma, without mention of having achieved remission Blood glucose elevated Other abnormal glucose History of DVT (deep vein thrombosis) Personal history of venous thrombosis and embolism Nondisplaced avulsion fracture of unsp ilium, init for opn fx S/P lumbar spinal fusion Arthrodesis status Acute postoperative pain Other acute postoperative pain Dural tear Other dural tear Stage 3a chronic kidney disease (HCC) Hypomagnesemia Disorders of magnesium metabolism Hypokalemia Hypopotassemia Thrombocytopenia Thrombocytopenia, unspecified Hospital discharge follow-up Other follow-up examination Confusion Unspecified psychosis Sinusitis Unspecified sinusitis (chronic) Multiple myeloma in remission (HCC)- Primary Multiple myeloma in remission [facility] Diagnosis Spinal stenosis, lumbar region with neurogenic claudication- Primary Acetabulum fracture (HCC) Closed fracture of acetabulum 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) Multiple myeloma, without mention of having achieved remission Severe pain Multiple myeloma not having achieved remission Multiple myeloma, without mention of having achieved remission Dural tear Other dural tear Multiple myeloma not having achieved remission Multiple myeloma, without mention of having achieved remission Blood glucose elevated Other abnormal glucose History of DVT (deep vein thrombosis) Personal history of venous thrombosis and embolism Nondisplaced avulsion fracture of unsp ilium, init for opn fx S/P lumbar spinal fusion Arthrodesis status Acute postoperative pain Other acute postoperative pain Dural tear Other dural tear Stage 3a chronic kidney disease (HCC) Hypomagnesemia Disorders of magnesium metabolism Hypokalemia Hypopotassemia Thrombocytopenia Thrombocytopenia, unspecified Hospital discharge follow-up Other follow-up examination Confusion Unspecified psychosis Sinusitis Unspecified sinusitis (chronic) Multiple myeloma in remission (HCC)- Primary Multiple myeloma in remission [facility]* Diagnosis Spinal stenosis, lumbar region with neurogenic claudication- Primary Acetabulum fracture (HCC) Closed fracture of acetabulum 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) Multiple myeloma, without mention of having achieved remission Severe pain Multiple myeloma not having achieved remission Multiple myeloma, without mention of having achieved remission Dural tear Other dural tear Multiple myeloma not having achieved remission Multiple myeloma, without mention of having achieved remission Blood glucose elevated Other abnormal glucose History of DVT (deep vein thrombosis) Personal history of venous thrombosis and embolism Nondisplaced avulsion fracture of unsp ilium, init for opn fx S/P lumbar spinal fusion Arthrodesis status Acute postoperative pain Other acute postoperative pain Dural tear Other dural tear Stage 3a chronic kidney disease (HCC) Hypomagnesemia Disorders of magnesium metabolism Hypokalemia Hypopotassemia Thrombocytopenia Thrombocytopenia, unspecified Hospital discharge follow-up Other follow-up examination Confusion Unspecified psychosis Sinusitis Unspecified sinusitis (chronic) 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) Multiple myeloma, without mention of having achieved remission [facility] Diagnosis Spinal stenosis, lumbar region with neurogenic claudication- Primary Acetabulum fracture (HCC) Closed fracture of acetabulum 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) Multiple myeloma, without mention of having achieved remission Severe pain Multiple myeloma not having achieved remission Multiple myeloma, without mention of having achieved remission Dural tear Other dural tear Multiple myeloma not having achieved remission Multiple myeloma, without mention of having achieved remission Blood glucose elevated Other abnormal glucose History of DVT (deep vein thrombosis) Personal history of venous thrombosis and embolism Nondisplaced avulsion fracture of unsp ilium, init for opn fx S/P lumbar spinal fusion Arthrodesis status Acute postoperative pain Other acute postoperative pain Dural tear Other dural tear Stage 3a chronic kidney disease (HCC) Hypomagnesemia Disorders of magnesium metabolism Hypokalemia Hypopotassemia Thrombocytopenia Thrombocytopenia, unspecified Hospital discharge follow-up Other follow-up examination Confusion Unspecified psychosis Sinusitis Unspecified sinusitis (chronic) Multiple myeloma, remission status unspecified (HCC) [facility] Diagnosis Spinal stenosis, lumbar region with neurogenic claudication- Primary Acetabulum fracture (HCC) Closed fracture of acetabulum 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) Multiple myeloma, without mention of having achieved remission Severe pain Multiple myeloma not having achieved remission Multiple myeloma, without mention of having achieved remission Dural tear Other dural tear Multiple myeloma not having achieved remission Multiple myeloma, without mention of having achieved remission Blood glucose elevated Other abnormal glucose History of DVT (deep vein thrombosis) Personal history of venous thrombosis and embolism Nondisplaced avulsion fracture of unsp ilium, init for opn fx S/P lumbar spinal fusion Arthrodesis status Acute postoperative pain Other acute postoperative pain Dural tear Other dural tear Stage 3a chronic kidney disease (HCC) Hypomagnesemia Disorders of magnesium metabolism Hypokalemia Hypopotassemia Thrombocytopenia Thrombocytopenia, unspecified Hospital discharge follow-up Other follow-up examination Confusion Unspecified psychosis Sinusitis Unspecified sinusitis (chronic) Neuropathy Mononeuritis of unspecified site Numbness and tingling Disturbance of skin sensation [facility] Diagnosis Spinal stenosis, lumbar region with neurogenic claudication- Primary Acetabulum fracture (HCC) Closed fracture of acetabulum 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) Multiple myeloma, without mention of having achieved remission Severe pain Multiple myeloma not having achieved remission Multiple myeloma, without mention of having achieved remission Dural tear Other dural tear Multiple myeloma not having achieved remission Multiple myeloma, without mention of having achieved remission Blood glucose elevated Other abnormal glucose History of DVT (deep vein thrombosis) Personal history of venous thrombosis and embolism Nondisplaced avulsion fracture of unsp ilium, init for opn fx S/P lumbar spinal fusion Arthrodesis status Acute postoperative pain Other acute postoperative pain Dural tear Other dural tear Stage 3a chronic kidney disease (HCC) Hypomagnesemia Disorders of magnesium metabolism Hypokalemia Hypopotassemia Thrombocytopenia Thrombocytopenia, unspecified Hospital discharge follow-up Other follow-up examination Confusion Unspecified psychosis Sinusitis Unspecified sinusitis (chronic) Multiple myeloma, remission status unspecified (HCC) [facility]* Diagnosis Spinal stenosis, lumbar region with neurogenic claudication- Primary Acetabulum fracture (HCC) Closed fracture of acetabulum 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) Multiple myeloma, without mention of having achieved remission Severe pain Multiple myeloma not having achieved remission Multiple myeloma, without mention of having achieved remission Dural tear Other dural tear Multiple myeloma not having achieved remission Multiple myeloma, without mention of having achieved remission Blood glucose elevated Other abnormal glucose History of DVT (deep vein thrombosis) Personal history of venous thrombosis and embolism Nondisplaced avulsion fracture of unsp ilium, init for opn fx S/P lumbar spinal fusion Arthrodesis status Acute postoperative pain Other acute postoperative pain Dural tear Other dural tear Stage 3a chronic kidney disease (HCC) Hypomagnesemia Disorders of magnesium metabolism Hypokalemia Hypopotassemia Thrombocytopenia Thrombocytopenia, unspecified Hospital discharge follow-up Other follow-up examination Confusion Unspecified psychosis Sinusitis Unspecified sinusitis (chronic) Multiple myeloma, remission status unspecified (HCC)- Primary [facility]* Diagnosis Spinal stenosis, lumbar region with neurogenic claudication- Primary Acetabulum fracture (HCC) Closed fracture of acetabulum 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) Multiple myeloma, without mention of having achieved remission Severe pain Multiple myeloma not having achieved remission Multiple myeloma, without mention of having achieved remission Dural tear Other dural tear Multiple myeloma not having achieved remission Multiple myeloma, without mention of having achieved remission Blood glucose elevated Other abnormal glucose History of DVT (deep vein thrombosis) Personal history of venous thrombosis and embolism Nondisplaced avulsion fracture of unsp ilium, init for opn fx S/P lumbar spinal fusion Arthrodesis status Acute postoperative pain Other acute postoperative pain Dural tear Other dural tear Stage 3a chronic kidney disease (HCC) Hypomagnesemia Disorders of magnesium metabolism Hypokalemia Hypopotassemia Thrombocytopenia Thrombocytopenia, unspecified Hospital discharge follow-up Other follow-up examination Confusion Unspecified psychosis Sinusitis Unspecified sinusitis (chronic) Neuropathy- Primary Mononeuritis of unspecified site Pain of right hip Multiple myeloma in remission (HCC) Multiple myeloma in remission documented in this encounter [facility] note* Diagnosis Spinal stenosis, lumbar region with neurogenic claudication- Primary Acetabulum fracture (HCC) Closed fracture of acetabulum 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) Multiple myeloma, without mention of having achieved remission Severe pain Multiple myeloma not having achieved remission Multiple myeloma, without mention of having achieved remission Dural tear Other dural tear Multiple myeloma not having achieved remission Multiple myeloma, without mention of having achieved remission Blood glucose elevated Other abnormal glucose History of DVT (deep vein thrombosis) Personal history of venous thrombosis and embolism Nondisplaced avulsion fracture of unsp ilium, init for opn fx S/P lumbar spinal fusion Arthrodesis status Acute postoperative pain Other acute postoperative pain Dural tear Other dural tear Stage 3a chronic kidney disease (HCC) Hypomagnesemia Disorders of magnesium metabolism Hypokalemia Hypopotassemia Thrombocytopenia Thrombocytopenia, unspecified Hospital discharge follow-up Other follow-up examination Confusion Unspecified psychosis Sinusitis Unspecified sinusitis (chronic) Multiple myeloma, remission status unspecified (HCC)- Primary documented in this encounter [facility] note* Diagnosis Dysuria- Primary Medication refill Issue of repeat prescriptions Multiple myeloma, remission status unspecified (HCC) Primary hypertension Unspecified essential hypertension Hypothyroidism, unspecified type documented in this encounter [facility] note* Diagnosis Spinal stenosis, lumbar region with neurogenic claudication- Primary Acetabulum fracture (HCC) Closed fracture of acetabulum 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) Multiple myeloma, without mention of having achieved remission Severe pain Multiple myeloma not having achieved remission Multiple myeloma, without mention of having achieved remission Dural tear Other dural tear Multiple myeloma not having achieved remission Multiple myeloma, without mention of having achieved remission Blood glucose elevated Other abnormal glucose History of DVT (deep vein thrombosis) Personal history of venous thrombosis and embolism Nondisplaced avulsion fracture of unsp ilium, init for opn fx S/P lumbar spinal fusion Arthrodesis status Acute postoperative pain Other acute postoperative pain Dural tear Other dural tear Stage 3a chronic kidney disease (HCC) Hypomagnesemia Disorders of magnesium metabolism Hypokalemia Hypopotassemia Thrombocytopenia Thrombocytopenia, unspecified Hospital discharge follow-up Other follow-up examination Confusion Unspecified psychosis Sinusitis Unspecified sinusitis (chronic) Palliative care by specialist- Primary Multiple myeloma not having achieved remission Multiple myeloma, without mention of having achieved remission Cancer related pain Neoplasm related pain (acute) (chronic) Neuropathy Mononeuritis of unspecified site Insomnia, unspecified type Anxiety Anxiety state, unspecified Appetite impaired Anorexia Fatigue, unspecified type Generalized weakness Other malaise and fatigue [facility]* Diagnosis Spinal stenosis, lumbar region with neurogenic claudication- Primary Acetabulum fracture (HCC) Closed fracture of acetabulum 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) Multiple myeloma, without mention of having achieved remission Severe pain Multiple myeloma not having achieved remission Multiple myeloma, without mention of having achieved remission Dural tear Other dural tear Multiple myeloma not having achieved remission Multiple myeloma, without mention of having achieved remission Blood glucose elevated Other abnormal glucose History of DVT (deep vein thrombosis) Personal history of venous thrombosis and embolism Nondisplaced avulsion fracture of unsp ilium, init for opn fx S/P lumbar spinal fusion Arthrodesis status Acute postoperative pain Other acute postoperative pain Dural tear Other dural tear Stage 3a chronic kidney disease (HCC) Hypomagnesemia Disorders of magnesium metabolism Hypokalemia Hypopotassemia Thrombocytopenia Thrombocytopenia, unspecified Hospital discharge follow-up Other follow-up examination Confusion Unspecified psychosis Sinusitis Unspecified sinusitis (chronic) Neuropathy Mononeuritis of unspecified site Numbness and tingling Disturbance of skin sensation [facility]* Diagnosis Spinal stenosis, lumbar region with neurogenic claudication- Primary Acetabulum fracture (HCC) Closed fracture of acetabulum 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) Multiple myeloma, without mention of having achieved remission Severe pain Multiple myeloma not having achieved remission Multiple myeloma, without mention of having achieved remission Dural tear Other dural tear Blood glucose elevated Other abnormal glucose Nondisplaced avulsion fracture of unsp ilium, init for opn fx S/P lumbar spinal fusion Arthrodesis status Acute postoperative pain Other acute postoperative pain Dural tear Other dural tear Hypomagnesemia Disorders of magnesium metabolism Hypokalemia Hypopotassemia Thrombocytopenia Thrombocytopenia, unspecified Confusion Unspecified psychosis Sinusitis Unspecified sinusitis (chronic) Multiple myeloma without remission (HCC)- Primary Multiple myeloma, without mention of having achieved remission documented in this encounter [facility] for referral (narrative)* Diagnostic Procedure Only (Routine) - Closed Specialty Diagnoses / Procedures Referred By Contac t Referred To Contact XR IMAGING Diagnoses Rib pain Procedures XR RIBS 2V AP/OBL RIGHT RADEX RIBS UNILATERAL 2 VIEWS Tristen Raphael MD [address] [place] [address] Xr Imaging Referral ID Status Reason Start Date Expiration Date V isits Requested Visits Authorized [id number] Closed Auto-Generate d Referral 10/30/2022 11/29/2023 1 1 [facility] for referral (narrative)* Diagnostic Procedure Only (Routine) - Closed Specialty Diagnoses / Procedures Referred By Suac t Referred To Contact XR IMAGING Diagnoses Rib pain Procedures XR RIBS 2V AP/OBL RIGHT RADEX RIBS UNILATERAL 2 VIEWS Tristen Raphael MD [address] [place] [address] Xr Imaging Referral ID Status Reason Start Date Expiration Date V isits Requested Visits Authorized [id number] Closed Auto-Generate d Referral 10/30/2022 11/29/2023 1 1 [facility] for referral (narrative)* Outpatient Procedure (Routine) - Pending Review Specialty Diagnoses / Procedures Referred By Contac t Referred To Contact [facility] Diagnoses Neuropathy Procedures EMG(NEURO/NI) NERVE CONDUCTION STUDIES 9-10 STUDIES Farrah Nelson PA-C [address] [place] [address] [facility] [place] [address] [place] [address] Referral ID Status Reason Start Date Expiration Date Visits Requested Visits Authorized [id number] Pending Review Auto-Generat ed Referral 05/21/2023 05/21/2024 1 1 [facility] for referral (narrative)* Diagnostic Procedure Only (Routine) - New Request Specialty Diagnoses / Procedures Referred By Contac t Referred To Contact US IMAGING Diagnoses Stage 3b chronic kidney disease (HCC) Procedures US KIDNEY/BLADDER US RETROPERITONEAL REAL TIME W/IMAGE COMPLETE Kane Maria MD [address] [id number] [facility] [place] [facility] Referral ID Status Reason Start Date Expiration Date Visits Requested Visits Authorized [id number] New Request Auto-Generat ed Referral 03/08/2024 04/07/2025 1 1 [facility] for referral (narrative)* Diagnostic Procedure Only (Routine) - Closed Specialty Diagnoses / Procedures Referred By Contac t Referred To Contact XR IMAGING Diagnoses Spinal stenosis, lumbar region with neurogenic claudication S/P lumbar fusion Procedures XR LUMBAR LIMITED 2V AP/LAT X-RAY L-S SPINE AP/LATERAL Amberly Howard, SPECIAL COLLECTIONS LIBRARIAN.DUCT LAYER HELPER [address] [phone] Xr Imaging [facility] Referral ID Status Reason Start Date Expiration Date V isits Requested Visits Authorized Closed Auto-Generate d Referral 03/08/2021 04/07/2022 1 1 [facility] for visit Narrative* Diagnostic Procedure Only (Routine) - Closed Specialty Diagnoses / Procedures Referred By Contac t Referred To Contact XR IMAGING Diagnoses Spinal stenosis, lumbar region with neurogenic claudication S/P lumbar fusion Procedures XR LUMBAR LIMITED 2V AP/LAT X-RAY L-S SPINE AP/LATERAL Amberly Howard, SPECIAL COLLECTIONS LIBRARIAN.DUCT LAYER HELPER [address] [phone] Xr Imaging [facility] Referral ID Status Reason Start Date Expiration Date V isits Requested Visits Authorized Closed Auto-Generate d Referral 03/08/2021 04/07/2022 1 1 [facility] for visit Narrative* Diagnostic Procedure Only (Routine) - Closed Specialty Diagnoses / Procedures Referred By Contac t Referred To Contact US IMAGING Diagnoses Stage 3b chronic kidney disease (HCC) Procedures US KIDNEY/BLADDER US RETROPERITONEAL REAL TIME W/IMAGE COMPLETE Kane Maria MD [address] [place] [address] Us Imaging [place] [address] Referral ID Status Reason Start Date Expiration Date V isits Requested Visits Authorized [id number] Closed Auto-Generate d Referral 03/08/2024 04/07/2025 1 1 [facility] for visit Narrative* MRI/CT (Routine) - Closed Specialty Diagnoses / Procedures Referred By Contac t Referred To Contact CT IMAGING Diagnoses 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) Procedures CT HIP WO IVCON RIGHT CT LOWER EXTREMITY W/O CONTRAST MATERIAL Tristen Raphael MD [address] [place] [address] Phone: tel: fax: [facility] IMAGING [place] [address] Referral ID Status Reason Start Date Expiration Date V isits Requested Visits Authorized [id number] Closed Auto-Generate d Referral 12/15/2024 01/14/2026 1 1 [facility] for visit Narrative* Auth/Cert (Routine) Specialty Diagnoses / Procedures Referred By Fide t Referred To Contact Diagnoses 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) Pain Impaired ambulation MULTIPLE MYELOMA PAIN INABILITY TO AMBULATE Procedures [address] [place] [address] IP/OBS CARE HIGH MDM 75 MINUTES CHEMOTHER PROLONG INFUSE W/PUMP HOSP MAIN PREA [address] [place] [address] Referral ID Status Reason Start Date Expiration Date Visits Re quested Visits Authorized [id number] 1 1 [facility] Summary Purpose Family History No Family History Records Found Brother (s) Status:Active Comments:1. Daughter (s) Status:Active Comments:2. Father Status:Active Comments: d. d. 90; TIAs; Mother Status:Active Comments:d. 88 y o; Sister (s) Status:Active Comments:1. Son (s) Status:Active Comments:1. Brother (s) Status:Active Comments:1. Daughter (s) Status:Active Comments:2. Father Status:Active Comments: d. d. 90; TIAs; Mother Status:Active Comments:d. 88 y o; Sister (s) Status:Active Comments:1. Son (s) Status:Active Comments:1. Brother (s) Status:Active Comments:1. Daughter (s) Status:Active Comments:2. Father Status:Active Comments: d. d. 90; TIAs; Mother Status:Active Comments:d. 88 y o; Sister (s) Status:Active Comments:1. Son (s) Status:Active Comments:1. Brother (s) Status:Active Comments:1. Daughter (s) Status:Active Comments:2. Father Status:Active Comments: d. d. 90; TIAs; Mother Status:Active Comments:d. 88 y o; Sister (s) Status:Active Comments:1. Son (s) Status:Active Comments:1. Brother (s) Status:Active Comments:1. Daughter (s) Status:Active Comments:2. Father Status:Active Comments: d. d. 90; TIAs; Mother Status:Active Comments:d. 88 y o; Sister (s) Status:Active Comments:1. Son (s) Status:Active Comments:1. Brother (s) Status:Active Comments:1. Daughter (s) Status:Active Comments:2. Father Status:Active Comments: d. d. 90; TIAs; Mother Status:Active Comments:d. 88 y o; Sister (s) Status:Active Comments:1. Son (s) Status:Active Comments:1. Brother (s) Status:Active Comments:1. Daughter (s) Status:Active Comments:2. Father Status:Active Comments: d. d. 90; TIAs; Mother Status:Active Comments:d. 88 y o; Sister (s) Status:Active Comments:1. Son (s) Status:Active Comments:1. Brother (s) Status:Active Comments:1. Daughter (s) Status:Active Comments:2. Father Status:Active Comments: d. d. 90; TIAs; Mother Status:Active Comments:d. 88 y o; Sister (s) Status:Active Comments:1. Son (s) Status:Active Comments:1. Brother (s) Status:Active Comments:1. Daughter (s) Status:Active Comments:2. Father Status:Active Comments: d. d. 90; TIAs; Mother Status:Active Comments:d. 88 y o; Sister (s) Status:Active Comments:1. Son (s) Status:Active Comments:1. 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 Advance Directive(s) 07/06/2020 12:40 PM Date Activated Date Inactivated Comments 03/30/2025 2:43 PM Question Answer Comments Full Code Order Discussed With: Patient Date Activated Date Inactivated Comments 03/30/2025 2:43 PM Question Answer Comments Full Code Order Discussed With: Patient Medications Administered Section Inactive Administered Medications - up to 3 most recent administrations Medication Order MAR Action Action Date Dose Rate Site bortezomib 1.4 mg in NaCl 0.9% (VELCADE) 1.4 mg (0.7 mg/m2 2 m2 Treatment Plan BSA from Recorded weight), SUBCUTANEOUS, ONCE, 1 dose, On Fri10/25/21 at 1530, exp 2300 10/25/21 (room temp) - DO NOT SHAKE - Hazardous Chemotherapy Drug: Use appropriate PPE. FATAL IF GIVEN INTRATHECALLY. Given 10/25/2021 3:29 PM EDT 1.4 mg Abdomen, LLQ zoledronic acid 3.3 mg in NaCl 0.9% 100 mL (ZOMETA) 3.3 mg, INTRAVENOUS, Administer over 15 Minutes, ONCE, 1 dose, On Fri10/25/21 at 1600, Hazardous Potential Reproductive Risk Drug: Use appropriate PPE. Refrigerate. New Bag/Syringe/Bottle 10/25/2021 3:49 PM EDT 3.3 mg Inactive Administered Medications - up to 3 most recent administrations Medication Order MAR Action Action Date Dose Rate Site bortezomib 1.4 mg in NaCl 0.9% (VELCADE) 1.4 mg (0.7 mg/m2 2 m2 Treatment Plan BSA from Recorded weight), SUBCUTANEOUS, ONCE, 1 dose, On Fri11/07/21 at 1430, exp 2230 11/07/21 (room temp) - DO NOT SHAKE - Hazardous Chemotherapy Drug: Use appropriate PPE. FATAL IF GIVEN INTRATHECALLY. Given 11/07/2021 2:43 PM EDT 1.4 mg Abdomen, RLQ Inactive Administered Medications - up to 3 most recent administrations Medication Order MAR Action Action Date Dose Rate Site bortezomib 1.4 mg in NaCl (PF) 0.9% 0.56 mL 1.4 mg (0.7 mg/m2 2 m2 Treatment Plan BSA from Recorded weight), SUBCUTANEOUS, ONCE, 1 dose, On Fri11/21/21 at 1500, Expires: 11/21/21 @ 2300 - DO NOT SHAKE - Hazardous Chemotherapy Drug: Use appropriate PPE. FATAL IF GIVEN INTRATHECALLY. Given 11/21/2021 3:20 PM EDT 1.4 mg Abdomen, RLQ Inactive Administered Medications - up to 3 most recent administrations Medication Order MAR Action Action Date Dose Rate Site zoledronic acid 3.3 mg in NaCl 0.9% 100 mL (ZOMETA) 3.3 mg, INTRAVENOUS, Administer over 15 Minutes, ONCE, 1 dose, On Fri02/06/22 at 1600, Approx Total Volume: Hazardous Potential Reproductive Risk Drug: Use appropriate PPE. Refrigerate. New Bag/Syringe/Bottle 02/06/2022 4:09 PM EDT 3.3 mg Reason for Referral Specialty Diagnoses / Procedures Referred By Contac t Referred To Contact CT IMAGING Diagnoses Lung nodules Procedures CT CHEST WO IVCON DIAGNOSTIC COMPUTED TOMOGRAPHY THORAX W/O CNTRST Tristen Raphael MD [address] [place] [address] Ct Imaging [place] [address] Referral ID Status Reason Start Date Expiration Date Visits Requested Visits Authorized [id number] Authorized Auto-Generat ed Referral 06/05/2024 1 1 Referral ID Status Reason Start Date Expiration Date V isits Requested Visits Authorized [id number] Closed Auto-Generate d Referral 10/31/2022 11/30/2023 1 1 Specialty Diagnoses / Procedures Referred By Contac t Referred To Contact CT IMAGING Diagnoses Pain of right hip Procedures CT HIP WO IVCON RIGHT CT LOWER EXTREMITY W/O CONTRAST MATERIAL Tristen Raphael MD [address] [place] [address] Ct Imaging [place] [address] Referral ID Status Reason Start Date Expiration Date V isits Requested Visits Authorized [id number] Closed Auto-Generate d Referral 04/23/2023 05/22/2024 1 1 Referral ID Status Reason Start Date Expiration Date V isits Requested Visits Authorized [id number] Closed Auto-Generate d Referral 05/14/2023 06/05/2024 1 1 Specialty Diagnoses / Procedures Referred By Contac t Referred To Contact Diagnoses Multiple myeloma, remission status unspecified (HCC) Tristen Raphael MD [address] [place] [address] Referral ID Status Reason Start Date Expiration Date V isits Requested Visits Authorized [id number] Pending Review 1 1 Specialty Diagnoses / Procedures Referred By Contac t Referred To Contact [facility] Diagnoses Numbness and tingling Right leg weakness Procedures CONSULT TO PHYSICAL THERAPY [facility] 45 MINS Farrah Nelson PA-C [address] [place] [address] [facility] [address] [address] Referral ID Status Reason Start Date Expiration Date Visits Requested Visits Authorized [id number] Pending Review Auto-Generat ed Referral 10/07/2023 10/06/2024 1 1 Specialty Diagnoses / Procedures Referred By Contac t Referred To Contact Nephrology Diagnoses Stage 3b chronic kidney disease (HCC) Procedures CONSULT TO KIDNEY MEDICINE OFFICE/OUTPATIENT [facility] 60 MINUTES Tristen Raphael MD [address] [place] [address] Referral ID Status Reason Start Date Expiration Date Visits Requested Visits Authorized [id number] Authorized PCP Requested Referral 11/17/2023 11/16/2024 1 1 Specialty Diagnoses / Procedures Referred By Contac t Referred To Contact Diagnoses Neuropathy Numbness and tingling Farrah Nelson PA-C [address] [place] [address] Referral ID Status Reason Start Date Expiration Date Visits Re quested Visits Authorized [id number] Closed 1 1 Referral ID Status Reason Start Date Expiration Date Visits Requested Visits Authorized [id number] Authorized Auto-Generat ed Referral 04/20/2024 03/26/2025 1 1 Additional Source Comments (unrecognized sect ion and content) No Status Records FoundNo Status Records FoundNo Status Records FoundNo Status Records FoundNo Status Records FoundNo Status Records FoundNo Status Records Found INFORMATION SOURCE (unrecogn ized section and content) DATE CREATED AUTHOR 04/09/2021 [facility] DATE CREATED AUTHOR AUTHOR'S ORGANIZ ATION 11/21/2021 [facility] ([place]) DATE CREATED AUTHOR AUTHOR'S ORGANIZ ATION 12/16/2024 [facility] DATE CREATED AUTHOR AUTHOR'S ORGANIZ ATION 12/18/2024 [facility] DATE CREATED AUTHOR AUTHOR'S ORGANIZ ATION 02/26/2025 [facility] DATE CREATED AUTHOR AUTHOR'S ORGANIZ ATION 03/28/2025 [facility] DATE CREATED AUTHOR AUTHOR'S ORGANIZ ATION 05/14/2025 [facility] Source Comments (unrecognize d section and content) In the event this informatio n is protected by the Federal Confidentiality of Alcohol and Drug Abuse Patient Records regulations: The Federal rules restrict any use of the information to criminally investigate or prosecute any alcohol or drug abuse patient.[facility] HospitalIn the event this information is protected by the Federal Confidentiality of Alcohol and Drug Abuse Patient Records regulations: The Federal rules restrict any use of the information to criminally investigate or prosecute any alcohol or drug abuse patient.[facility] HospitalIn the event this information is protected by the Federal Confidentiality of Alcohol and Drug Abuse Patient Records regulations: The Federal rules restrict any use of the information to criminally investigate or prosecute any alcohol or drug abuse patient.[facility] HospitalIn the event this information is protected by the Federal Confidentiality of Alcohol and Drug Abuse Patient Records regulations: The Federal rules restrict any use of the information to criminally investigate or prosecute any alcohol or drug abuse patient.[facility] HospitalIn the event this information is protected by the Federal Confidentiality of Alcohol and Drug Abuse Patient Records regulations: The Federal rules restrict any use of the information to criminally investigate or prosecute any alcohol or drug abuse patient.[facility] HospitalIn the event this information is protected by the Federal Confidentiality of Alcohol and Drug Abuse Patient Records regulations: The Federal rules restrict any use of the information to criminally investigate or prosecute any alcohol or drug abuse patient.[facility] HospitalIn the event this information is protected by the Federal Confidentiality of Alcohol and Drug Abuse Patient Records regulations: The Federal rules restrict any use of the information to criminally investigate or prosecute any alcohol or drug abuse patient.[facility] HospitalIn the event this information is protected by the Federal Confidentiality of Alcohol and Drug Abuse Patient Records regulations: The Federal rules restrict any use of the information to criminally investigate or prosecute any alcohol or drug abuse patient.[facility] HospitalIn the event this information is protected by the Federal Confidentiality of Alcohol and Drug Abuse Patient Records regulations: The Federal rules restrict any use of the information to criminally investigate or prosecute any alcohol or drug abuse patient.[facility] HospitalIn the event this information is protected by the Federal Confidentiality of Alcohol and Drug Abuse Patient Records regulations: The Federal rules restrict any use of the information to criminally investigate or prosecute any alcohol or drug abuse patient.[facility] HospitalIn the event this information is protected by the Federal Confidentiality of Alcohol and Drug Abuse Patient Records regulations: The Federal rules restrict any use of the information to criminally investigate or prosecute any alcohol or drug abuse patient.[facility] HospitalIn the event this information is protected by the Federal Confidentiality of Alcohol and Drug Abuse Patient Records regulations: The Federal rules restrict any use of the information to criminally investigate or prosecute any alcohol or drug abuse patient.[facility] HospitalIn the event this information is protected by the Federal Confidentiality of Alcohol and Drug Abuse Patient Records regulations: The Federal rules restrict any use of the information to criminally investigate or prosecute any alcohol or drug abuse patient.[facility] HospitalIn the event this information is protected by the Federal Confidentiality of Alcohol and Drug Abuse Patient Records regulations: The Federal rules restrict any use of the information to criminally investigate or prosecute any alcohol or drug abuse patient.[facility] HospitalIn the event this information is protected by the Federal Confidentiality of Alcohol and Drug Abuse Patient Records regulations: The Federal rules restrict any use of the information to criminally investigate or prosecute any alcohol or drug abuse patient.[facility] HospitalIn the event this information is protected by the Federal Confidentiality of Alcohol and Drug Abuse Patient Records regulations: The Federal rules restrict any use of the information to criminally investigate or prosecute any alcohol or drug abuse patient.[facility] HospitalIn the event this information is protected by the Federal Confidentiality of Alcohol and Drug Abuse Patient Records regulations: The Federal rules restrict any use of the information to criminally investigate or prosecute any alcohol or drug abuse patient.[facility] HospitalIn the event this information is protected by the Federal Confidentiality of Alcohol and Drug Abuse Patient Records regulations: The Federal rules restrict any use of the information to criminally investigate or prosecute any alcohol or drug abuse patient.[facility] HospitalIn the event this information is protected by the Federal Confidentiality of Alcohol and Drug Abuse Patient Records regulations: The Federal rules restrict any use of the information to criminally investigate or prosecute any alcohol or drug abuse patient.[facility] HospitalIn the event this information is protected by the Federal Confidentiality of Alcohol and Drug Abuse Patient Records regulations: The Federal rules restrict any use of the information to criminally investigate or prosecute any alcohol or drug abuse patient.[facility] HospitalIn the event this information is protected by the Federal Confidentiality of Alcohol and Drug Abuse Patient Records regulations: The Federal rules restrict any use of the information to criminally investigate or prosecute any alcohol or drug abuse patient.[facility] HospitalIn the event this information is protected by the Federal Confidentiality of Alcohol and Drug Abuse Patient Records regulations: The Federal rules restrict any use of the information to criminally investigate or prosecute any alcohol or drug abuse patient.[facility] HospitalIn the event this information is protected by the Federal Confidentiality of Alcohol and Drug Abuse Patient Records regulations: The Federal rules restrict any use of the information to criminally investigate or prosecute any alcohol or drug abuse patient.[facility] HospitalIn the event this information is protected by the Federal Confidentiality of Alcohol and Drug Abuse Patient Records regulations: The Federal rules restrict any use of the information to criminally investigate or prosecute any alcohol or drug abuse patient.[facility] HospitalIn the event this information is protected by the Federal Confidentiality of Alcohol and Drug Abuse Patient Records regulations: The Federal rules restrict any use of the information to criminally investigate or prosecute any alcohol or drug abuse patient.[facility] HospitalIn the event this information is protected by the Federal Confidentiality of Alcohol and Drug Abuse Patient Records regulations: The Federal rules restrict any use of the information to criminally investigate or prosecute any alcohol or drug abuse patient.[facility] HospitalIn the event this information is protected by the Federal Confidentiality of Alcohol and Drug Abuse Patient Records regulations: The Federal rules restrict any use of the information to criminally investigate or prosecute any alcohol or drug abuse patient.[facility] HospitalIn the event this information is protected by the Federal Confidentiality of Alcohol and Drug Abuse Patient Records regulations: The Federal rules restrict any use of the information to criminally investigate or prosecute any alcohol or drug abuse patient.[facility] HospitalIn the event this information is protected by the Federal Confidentiality of Alcohol and Drug Abuse Patient Records regulations: The Federal rules restrict any use of the information to criminally investigate or prosecute any alcohol or drug abuse patient.[facility] HospitalIn the event this information is protected by the Federal Confidentiality of Alcohol and Drug Abuse Patient Records regulations: The Federal rules restrict any use of the information to criminally investigate or prosecute any alcohol or drug abuse patient.[facility] HospitalIn the event this information is protected by the Federal Confidentiality of Alcohol and Drug Abuse Patient Records regulations: The Federal rules restrict any use of the information to criminally investigate or prosecute any alcohol or drug abuse patient.[facility] HospitalIn the event this information is protected by the Federal Confidentiality of Alcohol and Drug Abuse Patient Records regulations: The Federal rules restrict any use of the information to criminally investigate or prosecute any alcohol or drug abuse patient.[facility] HospitalIn the event this information is protected by the Federal Confidentiality of Alcohol and Drug Abuse Patient Records regulations: The Federal rules restrict any use of the information to criminally investigate or prosecute any alcohol or drug abuse patient.[facility] HospitalIn the event this information is protected by the Federal Confidentiality of Alcohol and Drug Abuse Patient Records regulations: The Federal rules restrict any use of the information to criminally investigate or prosecute any alcohol or drug abuse patient.[facility] HospitalIn the event this information is protected by the Federal Confidentiality of Alcohol and Drug Abuse Patient Records regulations: The Federal rules restrict any use of the information to criminally investigate or prosecute any alcohol or drug abuse patient.[facility] HospitalIn the event this information is protected by the Federal Confidentiality of Alcohol and Drug Abuse Patient Records regulations: The Federal rules restrict any use of the information to criminally investigate or prosecute any alcohol or drug abuse patient.[facility] HospitalIn the event this information is protected by the Federal Confidentiality of Alcohol and Drug Abuse Patient Records regulations: The Federal rules restrict any use of the information to criminally investigate or prosecute any alcohol or drug abuse patient.[facility] HospitalIn the event this information is protected by the Federal Confidentiality of Alcohol and Drug Abuse Patient Records regulations: The Federal rules restrict any use of the information to criminally investigate or prosecute any alcohol or drug abuse patient.[facility] HospitalIn the event this information is protected by the Federal Confidentiality of Alcohol and Drug Abuse Patient Records regulations: The Federal rules restrict any use of the information to criminally investigate or prosecute any alcohol or drug abuse patient.[facility] HospitalIn the event this information is protected by the Federal Confidentiality of Alcohol and Drug Abuse Patient Records regulations: The Federal rules restrict any use of the information to criminally investigate or prosecute any alcohol or drug abuse patient.[facility] HospitalIn the event this information is protected by the Federal Confidentiality of Alcohol and Drug Abuse Patient Records regulations: The Federal rules restrict any use of the information to criminally investigate or prosecute any alcohol or drug abuse patient.[facility] HospitalIn the event this information is protected by the Federal Confidentiality of Alcohol and Drug Abuse Patient Records regulations: The Federal rules restrict any use of the information to criminally investigate or prosecute any alcohol or drug abuse patient.[facility] HospitalIn the event this information is protected by the Federal Confidentiality of Alcohol and Drug Abuse Patient Records regulations: The Federal rules restrict any use of the information to criminally investigate or prosecute any alcohol or drug abuse patient.[facility] HospitalIn the event this information is protected by the Federal Confidentiality of Alcohol and Drug Abuse Patient Records regulations: The Federal rules restrict any use of the information to criminally investigate or prosecute any alcohol or drug abuse patient.[facility] HospitalIn the event this information is protected by the Federal Confidentiality of Alcohol and Drug Abuse Patient Records regulations: The Federal rules restrict any use of the information to criminally investigate or prosecute any alcohol or drug abuse patient.[facility] HospitalIn the event this information is protected by the Federal Confidentiality of Alcohol and Drug Abuse Patient Records regulations: The Federal rules restrict any use of the information to criminally investigate or prosecute any alcohol or drug abuse patient.[facility] HospitalIn the event this information is protected by the Federal Confidentiality of Alcohol and Drug Abuse Patient Records regulations: The Federal rules restrict any use of the information to criminally investigate or prosecute any alcohol or drug abuse patient.[facility] HospitalIn the event this information is protected by the Federal Confidentiality of Alcohol and Drug Abuse Patient Records regulations: The Federal rules restrict any use of the information to criminally investigate or prosecute any alcohol or drug abuse patient.[facility] HospitalIn the event this information is protected by the Federal Confidentiality of Alcohol and Drug Abuse Patient Records regulations: The Federal rules restrict any use of the information to criminally investigate or prosecute any alcohol or drug abuse patient.[facility] HospitalIn the event this information is protected by the Federal Confidentiality of Alcohol and Drug Abuse Patient Records regulations: The Federal rules restrict any use of the information to criminally investigate or prosecute any alcohol or drug abuse patient.[facility] HospitalIn the event this information is protected by the Federal Confidentiality of Alcohol and Drug Abuse Patient Records regulations: The Federal rules restrict any use of the information to criminally investigate or prosecute any alcohol or drug abuse patient.[facility] HospitalIn the event this information is protected by the Federal Confidentiality of Alcohol and Drug Abuse Patient Records regulations: The Federal rules restrict any use of the information to criminally investigate or prosecute any alcohol or drug abuse patient.[facility] HospitalIn the event this information is protected by the Federal Confidentiality of Alcohol and Drug Abuse Patient Records regulations: The Federal rules restrict any use of the information to criminally investigate or prosecute any alcohol or drug abuse patient.[facility] HospitalIn the event this information is protected by the Federal Confidentiality of Alcohol and Drug Abuse Patient Records regulations: The Federal rules restrict any use of the information to criminally investigate or prosecute any alcohol or drug abuse patient.[facility] HospitalIn the event this information is protected by the Federal Confidentiality of Alcohol and Drug Abuse Patient Records regulations: The Federal rules restrict any use of the information to criminally investigate or prosecute any alcohol or drug abuse patient.[facility] HospitalIn the event this information is protected by the Federal Confidentiality of Alcohol and Drug Abuse Patient Records regulations: The Federal rules restrict any use of the information to criminally investigate or prosecute any alcohol or drug abuse patient.[facility] HospitalIn the event this information is protected by the Federal Confidentiality of Alcohol and Drug Abuse Patient Records regulations: The Federal rules restrict any use of the information to criminally investigate or prosecute any alcohol or drug abuse patient.[facility] HospitalIn the event this information is protected by the Federal Confidentiality of Alcohol and Drug Abuse Patient Records regulations: The Federal rules restrict any use of the information to criminally investigate or prosecute any alcohol or drug abuse patient.[facility] HospitalIn the event this information is protected by the Federal Confidentiality of Alcohol and Drug Abuse Patient Records regulations: The Federal rules restrict any use of the information to criminally investigate or prosecute any alcohol or drug abuse patient.[facility] HospitalIn the event this information is protected by the Federal Confidentiality of Alcohol and Drug Abuse Patient Records regulations: The Federal rules restrict any use of the information to criminally investigate or prosecute any alcohol or drug abuse patient.[facility] HospitalIn the event this information is protected by the Federal Confidentiality of Alcohol and Drug Abuse Patient Records regulations: The Federal rules restrict any use of the information to criminally investigate or prosecute any alcohol or drug abuse patient.[facility] HospitalIn the event this information is protected by the Federal Confidentiality of Alcohol and Drug Abuse Patient Records regulations: The Federal rules restrict any use of the information to criminally investigate or prosecute any alcohol or drug abuse patient.[facility] HospitalIn the event this information is protected by the Federal Confidentiality of Alcohol and Drug Abuse Patient Records regulations: The Federal rules restrict any use of the information to criminally investigate or prosecute any alcohol or drug abuse patient.[facility] HospitalIn the event this information is protected by the Federal Confidentiality of Alcohol and Drug Abuse Patient Records regulations: The Federal rules restrict any use of the information to criminally investigate or prosecute any alcohol or drug abuse patient.[facility] HospitalIn the event this information is protected by the Federal Confidentiality of Alcohol and Drug Abuse Patient Records regulations: The Federal rules restrict any use of the information to criminally investigate or prosecute any alcohol or drug abuse patient.[facility] HospitalIn the event this information is protected by the Federal Confidentiality of Alcohol and Drug Abuse Patient Records regulations: The Federal rules restrict any use of the information to criminally investigate or prosecute any alcohol or drug abuse patient.[facility] HospitalIn the event this information is protected by the Federal Confidentiality of Alcohol and Drug Abuse Patient Records regulations: The Federal rules restrict any use of the information to criminally investigate or prosecute any alcohol or drug abuse patient.[facility] HospitalIn the event this information is protected by the Federal Confidentiality of Alcohol and Drug Abuse Patient Records regulations: The Federal rules restrict any use of the information to criminally investigate or prosecute any alcohol or drug abuse patient.[facility] HospitalIn the event this information is protected by the Federal Confidentiality of Alcohol and Drug Abuse Patient Records regulations: The Federal rules restrict any use of the information to criminally investigate or prosecute any alcohol or drug abuse patient.[facility] HospitalIn the event this information is protected by the Federal Confidentiality of Alcohol and Drug Abuse Patient Records regulations: The Federal rules restrict any use of the information to criminally investigate or prosecute any alcohol or drug abuse patient.[facility] HospitalIn the event this information is protected by the Federal Confidentiality of Alcohol and Drug Abuse Patient Records regulations: The Federal rules restrict any use of the information to criminally investigate or prosecute any alcohol or drug abuse patient.[facility] HospitalIn the event this information is protected by the Federal Confidentiality of Alcohol and Drug Abuse Patient Records regulations: The Federal rules restrict any use of the information to criminally investigate or prosecute any alcohol or drug abuse patient.[facility] HospitalIn the event this information is protected by the Federal Confidentiality of Alcohol and Drug Abuse Patient Records regulations: The Federal rules restrict any use of the information to criminally investigate or prosecute any alcohol or drug abuse patient.[facility] HospitalIn the event this information is protected by the Federal Confidentiality of Alcohol and Drug Abuse Patient Records regulations: The Federal rules restrict any use of the information to criminally investigate or prosecute any alcohol or drug abuse patient.[facility] HospitalIn the event this information is protected by the Federal Confidentiality of Alcohol and Drug Abuse Patient Records regulations: The Federal rules restrict any use of the information to criminally investigate or prosecute any alcohol or drug abuse patient.[facility] HospitalIn the event this information is protected by the Federal Confidentiality of Alcohol and Drug Abuse Patient Records regulations: The Federal rules restrict any use of the information to criminally investigate or prosecute any alcohol or drug abuse patient.[facility] HospitalIn the event this information is protected by the Federal Confidentiality of Alcohol and Drug Abuse Patient Records regulations: The Federal rules restrict any use of the information to criminally investigate or prosecute any alcohol or drug abuse patient.[facility] HospitalIn the event this information is protected by the Federal Confidentiality of Alcohol and Drug Abuse Patient Records regulations: The Federal rules restrict any use of the information to criminally investigate or prosecute any alcohol or drug abuse patient.[facility] HospitalIn the event this information is protected by the Federal Confidentiality of Alcohol and Drug Abuse Patient Records regulations: The Federal rules restrict any use of the information to criminally investigate or prosecute any alcohol or drug abuse patient.[facility] HospitalIn the event this information is protected by the Federal Confidentiality of Alcohol and Drug Abuse Patient Records regulations: The Federal rules restrict any use of the information to criminally investigate or prosecute any alcohol or drug abuse patient.[facility] HospitalIn the event this information is protected by the Federal Confidentiality of Alcohol and Drug Abuse Patient Records regulations: The Federal rules restrict any use of the information to criminally investigate or prosecute any alcohol or drug abuse patient.[facility] HospitalIn the event this information is protected by the Federal Confidentiality of Alcohol and Drug Abuse Patient Records regulations: The Federal rules restrict any use of the information to criminally investigate or prosecute any alcohol or drug abuse patient.[facility] HospitalIn the event this information is protected by the Federal Confidentiality of Alcohol and Drug Abuse Patient Records regulations: The Federal rules restrict any use of the information to criminally investigate or prosecute any alcohol or drug abuse patient.[facility] HospitalIn the event this information is protected by the Federal Confidentiality of Alcohol and Drug Abuse Patient Records regulations: The Federal rules restrict any use of the information to criminally investigate or prosecute any alcohol or drug abuse patient.[facility] HospitalIn the event this information is protected by the Federal Confidentiality of Alcohol and Drug Abuse Patient Records regulations: The Federal rules restrict any use of the information to criminally investigate or prosecute any alcohol or drug abuse patient.[facility] HospitalIn the event this information is protected by the Federal Confidentiality of Alcohol and Drug Abuse Patient Records regulations: The Federal rules restrict any use of the information to criminally investigate or prosecute any alcohol or drug abuse patient.[facility] HospitalIn the event this information is protected by the Federal Confidentiality of Alcohol and Drug Abuse Patient Records regulations: The Federal rules restrict any use of the information to criminally investigate or prosecute any alcohol or drug abuse patient.[facility] HospitalIn the event this information is protected by the Federal Confidentiality of Alcohol and Drug Abuse Patient Records regulations: The Federal rules restrict any use of the information to criminally investigate or prosecute any alcohol or drug abuse patient.[facility] HospitalIn the event this information is protected by the Federal Confidentiality of Alcohol and Drug Abuse Patient Records regulations: The Federal rules restrict any use of the information to criminally investigate or prosecute any alcohol or drug abuse patient.[facility] HospitalIn the event this information is protected by the Federal Confidentiality of Alcohol and Drug Abuse Patient Records regulations: The Federal rules restrict any use of the information to criminally investigate or prosecute any alcohol or drug abuse patient.[facility] HospitalIn the event this information is protected by the Federal Confidentiality of Alcohol and Drug Abuse Patient Records regulations: The Federal rules restrict any use of the information to criminally investigate or prosecute any alcohol or drug abuse patient.[facility] HospitalIn the event this information is protected by the Federal Confidentiality of Alcohol and Drug Abuse Patient Records regulations: The Federal rules restrict any use of the information to criminally investigate or prosecute any alcohol or drug abuse patient.[facility] HospitalIn the event this information is protected by the Federal Confidentiality of Alcohol and Drug Abuse Patient Records regulations: The Federal rules restrict any use of the information to criminally investigate or prosecute any alcohol or drug abuse patient.[facility] HospitalIn the event this information is protected by the Federal Confidentiality of Alcohol and Drug Abuse Patient Records regulations: The Federal rules restrict any use of the information to criminally investigate or prosecute any alcohol or drug abuse patient.[facility] HospitalIn the event this information is protected by the Federal Confidentiality of Alcohol and Drug Abuse Patient Records regulations: The Federal rules restrict any use of the information to criminally investigate or prosecute any alcohol or drug abuse patient.[facility] HospitalIn the event this information is protected by the Federal Confidentiality of Alcohol and Drug Abuse Patient Records regulations: The Federal rules restrict any use of the information to criminally investigate or prosecute any alcohol or drug abuse patient.[facility] HospitalIn the event this information is protected by the Federal Confidentiality of Alcohol and Drug Abuse Patient Records regulations: The Federal rules restrict any use of the information to criminally investigate or prosecute any alcohol or drug abuse patient.[facility] HospitalIn the event this information is protected by the Federal Confidentiality of Alcohol and Drug Abuse Patient Records regulations: The Federal rules restrict any use of the information to criminally investigate or prosecute any alcohol or drug abuse patient.[facility] HospitalIn the event this information is protected by the Federal Confidentiality of Alcohol and Drug Abuse Patient Records regulations: The Federal rules restrict any use of the information to criminally investigate or prosecute any alcohol or drug abuse patient.[facility] HospitalIn the event this information is protected by the Federal Confidentiality of Alcohol and Drug Abuse Patient Records regulations: The Federal rules restrict any use of the information to criminally investigate or prosecute any alcohol or drug abuse patient.[facility] HospitalIn the event this information is protected by the Federal Confidentiality of Alcohol and Drug Abuse Patient Records regulations: The Federal rules restrict any use of the information to criminally investigate or prosecute any alcohol or drug abuse patient.[facility] HospitalIn the event this information is protected by the Federal Confidentiality of Alcohol and Drug Abuse Patient Records regulations: The Federal rules restrict any use of the information to criminally investigate or prosecute any alcohol or drug abuse patient.[facility] HospitalIn the event this information is protected by the Federal Confidentiality of Alcohol and Drug Abuse Patient Records regulations: The Federal rules restrict any use of the information to criminally investigate or prosecute any alcohol or drug abuse patient.[facility] HospitalIn the event this information is protected by the Federal Confidentiality of Alcohol and Drug Abuse Patient Records regulations: The Federal rules restrict any use of the information to criminally investigate or prosecute any alcohol or drug abuse patient.[facility] HospitalIn the event this information is protected by the Federal Confidentiality of Alcohol and Drug Abuse Patient Records regulations: The Federal rules restrict any use of the information to criminally investigate or prosecute any alcohol or drug abuse patient.[facility] HospitalIn the event this information is protected by the Federal Confidentiality of Alcohol and Drug Abuse Patient Records regulations: The Federal rules restrict any use of the information to criminally investigate or prosecute any alcohol or drug abuse patient.[facility] HospitalIn the event this information is protected by the Federal Confidentiality of Alcohol and Drug Abuse Patient Records regulations: The Federal rules restrict any use of the information to criminally investigate or prosecute any alcohol or drug abuse patient.[facility] HospitalIn the event this information is protected by the Federal Confidentiality of Alcohol and Drug Abuse Patient Records regulations: The Federal rules restrict any use of the information to criminally investigate or prosecute any alcohol or drug abuse patient.[facility] HospitalIn the event this information is protected by the Federal Confidentiality of Alcohol and Drug Abuse Patient Records regulations: The Federal rules restrict any use of the information to criminally investigate or prosecute any alcohol or drug abuse patient.[facility] HospitalIn the event this information is protected by the Federal Confidentiality of Alcohol and Drug Abuse Patient Records regulations: The Federal rules restrict any use of the information to criminally investigate or prosecute any alcohol or drug abuse patient.[facility] HospitalIn the event this information is protected by the Federal Confidentiality of Alcohol and Drug Abuse Patient Records regulations: The Federal rules restrict any use of the information to criminally investigate or prosecute any alcohol or drug abuse patient.[facility] HospitalIn the event this information is protected by the Federal Confidentiality of Alcohol and Drug Abuse Patient Records regulations: The Federal rules restrict any use of the information to criminally investigate or prosecute any alcohol or drug abuse patient.[facility] HospitalIn the event this information is protected by the Federal Confidentiality of Alcohol and Drug Abuse Patient Records regulations: The Federal rules restrict any use of the information to criminally investigate or prosecute any alcohol or drug abuse patient.[facility] HospitalIn the event this information is protected by the Federal Confidentiality of Alcohol and Drug Abuse Patient Records regulations: The Federal rules restrict any use of the information to criminally investigate or prosecute any alcohol or drug abuse patient.[facility] HospitalIn the event this information is protected by the Federal Confidentiality of Alcohol and Drug Abuse Patient Records regulations: The Federal rules restrict any use of the information to criminally investigate or prosecute any alcohol or drug abuse patient.[facility] HospitalIn the event this information is protected by the Federal Confidentiality of Alcohol and Drug Abuse Patient Records regulations: The Federal rules restrict any use of the information to criminally investigate or prosecute any alcohol or drug abuse patient.[facility] HospitalIn the event this information is protected by the Federal Confidentiality of Alcohol and Drug Abuse Patient Records regulations: The Federal rules restrict any use of the information to criminally investigate or prosecute any alcohol or drug abuse patient.[facility] HospitalIn the event this information is protected by the Federal Confidentiality of Alcohol and Drug Abuse Patient Records regulations: The Federal rules restrict any use of the information to criminally investigate or prosecute any alcohol or drug abuse patient.[facility] HospitalIn the event this information is protected by the Federal Confidentiality of Alcohol and Drug Abuse Patient Records regulations: The Federal rules restrict any use of the information to criminally investigate or prosecute any alcohol or drug abuse patient.[facility] HospitalIn the event this information is protected by the Federal Confidentiality of Alcohol and Drug Abuse Patient Records regulations: The Federal rules restrict any use of the information to criminally investigate or prosecute any alcohol or drug abuse patient.[facility] HospitalIn the event this information is protected by the Federal Confidentiality of Alcohol and Drug Abuse Patient Records regulations: The Federal rules restrict any use of the information to criminally investigate or prosecute any alcohol or drug abuse patient.[facility] HospitalIn the event this information is protected by the Federal Confidentiality of Alcohol and Drug Abuse Patient Records regulations: The Federal rules restrict any use of the information to criminally investigate or prosecute any alcohol or drug abuse patient.[facility] HospitalIn the event this information is protected by the Federal Confidentiality of Alcohol and Drug Abuse Patient Records regulations: The Federal rules restrict any use of the information to criminally investigate or prosecute any alcohol or drug abuse patient.[facility] HospitalIn the event this information is protected by the Federal Confidentiality of Alcohol and Drug Abuse Patient Records regulations: The Federal rules restrict any use of the information to criminally investigate or prosecute any alcohol or drug abuse patient.[facility] HospitalIn the event this information is protected by the Federal Confidentiality of Alcohol and Drug Abuse Patient Records regulations: The Federal rules restrict any use of the information to criminally investigate or prosecute any alcohol or drug abuse patient.[facility] HospitalIn the event this information is protected by the Federal Confidentiality of Alcohol and Drug Abuse Patient Records regulations: The Federal rules restrict any use of the information to criminally investigate or prosecute any alcohol or drug abuse patient.[facility] HospitalIn the event this information is protected by the Federal Confidentiality of Alcohol and Drug Abuse Patient Records regulations: The Federal rules restrict any use of the information to criminally investigate or prosecute any alcohol or drug abuse patient.[facility] HospitalIn the event this information is protected by the Federal Confidentiality of Alcohol and Drug Abuse Patient Records regulations: The Federal rules restrict any use of the information to criminally investigate or prosecute any alcohol or drug abuse patient.[facility] HospitalIn the event this information is protected by the Federal Confidentiality of Alcohol and Drug Abuse Patient Records regulations: The Federal rules restrict any use of the information to criminally investigate or prosecute any alcohol or drug abuse patient.[facility] HospitalIn the event this information is protected by the Federal Confidentiality of Alcohol and Drug Abuse Patient Records regulations: The Federal rules restrict any use of the information to criminally investigate or prosecute any alcohol or drug abuse patient.[facility] HospitalIn the event this information is protected by the Federal Confidentiality of Alcohol and Drug Abuse Patient Records regulations: The Federal rules restrict any use of the information to criminally investigate or prosecute any alcohol or drug abuse patient.[facility] HospitalIn the event this information is protected by the Federal Confidentiality of Alcohol and Drug Abuse Patient Records regulations: The Federal rules restrict any use of the information to criminally investigate or prosecute any alcohol or drug abuse patient.[facility] HospitalIn the event this information is protected by the Federal Confidentiality of Alcohol and Drug Abuse Patient Records regulations: The Federal rules restrict any use of the information to criminally investigate or prosecute any alcohol or drug abuse patient.[facility] HospitalIn the event this information is protected by the Federal Confidentiality of Alcohol and Drug Abuse Patient Records regulations: The Federal rules restrict any use of the information to criminally investigate or prosecute any alcohol or drug abuse patient.[facility] HospitalIn the event this information is protected by the Federal Confidentiality of Alcohol and Drug Abuse Patient Records regulations: The Federal rules restrict any use of the information to criminally investigate or prosecute any alcohol or drug abuse patient.[facility] HospitalIn the event this information is protected by the Federal Confidentiality of Alcohol and Drug Abuse Patient Records regulations: The Federal rules restrict any use of the information to criminally investigate or prosecute any alcohol or drug abuse patient.[facility] HospitalIn the event this information is protected by the Federal Confidentiality of Alcohol and Drug Abuse Patient Records regulations: The Federal rules restrict any use of the information to criminally investigate or prosecute any alcohol or drug abuse patient.[facility] HospitalIn the event this information is protected by the Federal Confidentiality of Alcohol and Drug Abuse Patient Records regulations: The Federal rules restrict any use of the information to criminally investigate or prosecute any alcohol or drug abuse patient.[facility] HospitalIn the event this information is protected by the Federal Confidentiality of Alcohol and Drug Abuse Patient Records regulations: The Federal rules restrict any use of the information to criminally investigate or prosecute any alcohol or drug abuse patient.[facility] HospitalIn the event this information is protected by the Federal Confidentiality of Alcohol and Drug Abuse Patient Records regulations: The Federal rules restrict any use of the information to criminally investigate or prosecute any alcohol or drug abuse patient.[facility] HospitalIn the event this information is protected by the Federal Confidentiality of Alcohol and Drug Abuse Patient Records regulations: The Federal rules restrict any use of the information to criminally investigate or prosecute any alcohol or drug abuse patient.[facility] HospitalIn the event this information is protected by the Federal Confidentiality of Alcohol and Drug Abuse Patient Records regulations: The Federal rules restrict any use of the information to criminally investigate or prosecute any alcohol or drug abuse patient.[facility] Care Teams (unrecognized sec tion and content) Deputy Coroner Investigator Relationship Specialty [place] [address] [place] [address] Specialty Dietetic Tech Hematology/Oncology 02/04/20 Chelsy Cedeno MD, [address] [facility] [place] [address] Physician Radiation Oncology 02/08/20 [place] [address] [place] [address] Hematology/Oncology 07/17/21 Deputy Coroner Investigator Relationship Specialty Start [place] [address] [place] [address] Specialty Dietetic Tech Hematology/Oncology 02/04/20 Chelsy Cedeno MD, [address] [facility] [place] [address] Physician Radiation Oncology 02/08/20 Tristen Raphael MD [address] [place] [address] Hematology/Oncology 07/17/21 Deputy Coroner Investigator Relationship Specialty Start [place] [address] [place] [address] Specialty Dietetic Tech Hematology/Oncology 02/04/20 Chelsy Cedeno MD, [address] [place] [address] Physician Radiation Oncology 02/08/20 Tristen Raphael MD [address] [place] [address] Hematology/Oncology 07/17/21 Deputy Coroner Investigator Relationship Specialty Start [place] [address] [place] [address] Specialty Dietetic Tech Hematology/Oncology 02/04/20 Chelsy Cedeno MD, [address] [place] [address] Physician Radiation Oncology 02/08/20 Tristen Raphael MD [address] [place] [address] Hematology/Oncology 07/17/21 Deputy Coroner Investigator Relationship Specialty Start [place] [address] [place] [address] Specialty Dietetic Tech Hematology/Oncology 02/04/20 Chelsy Cedeno MD, [address] [place] [address] Physician Radiation Oncology 02/08/20 Tristen Raphael MD [address] [place] [address] Hematology/Oncology 07/17/21 Deputy Coroner Investigator Relationship Specialty Start [place] [address] [place] [address] Specialty Dietetic Tech Hematology/Oncology 02/04/20 Chelsy Cedeno MD, [address] [place] [address] Physician Radiation Oncology 02/08/20 Tristen Raphael MD [address] [place] [address] Hematology/Oncology 07/17/21 Deputy Coroner Investigator Relationship Specialty Start [place] [address] [place] [address] Specialty Dietetic Tech Hematology/Oncology 02/04/20 Chelsy Cedeno MD, [address] [place], [place] [id number] [phone] Physician Radiation Oncology 02/08/20 Tristen Raphael MD [address] [place] [address] Hematology/Oncology 07/17/21 Deputy Coroner Investigator Relationship Specialty Start [place] [address] [place] [address] Specialty Dietetic Tech Hematology/Oncology 02/04/20 Chelsy Cedeno MD, [address] [place] [address] Physician Radiation Oncology 02/08/20 [place] [address] [place] [address] Hematology/Oncology 07/17/21 Deputy Coroner Investigator Relationship Specialty Start [place] [address] [place] [address] Specialty Dietetic Tech Hematology/Oncology 02/04/20 Chelsy Cedeno MD, [address] [place] [address] Physician Radiation Oncology 02/08/20 [place] [address] [place] [address] Hematology/Oncology 07/17/21 Deputy Coroner Investigator Relationship Specialty Start [place] [address] [place] [address] Specialty Dietetic Tech Hematology/Oncology 02/04/20 Chelsy Cedeno MD, [address] [facility] [place] [address] Physician Radiation Oncology 02/08/20 Tristen Raphael MD [address] [place] [address] Hematology/Oncology 07/17/21 Deputy Coroner Investigator Relationship Specialty Start [place] [address] [place] [address] Specialty Dietetic Tech Hematology/Oncology 02/04/20 Chelsy Cedeno MD, [address] [place] [address] Physician Radiation Oncology 02/08/20 Tristen Raphael MD [address] [place] [address] Hematology/Oncology 07/17/21 Deputy Coroner Investigator Relationship Specialty Start [place] [address] [place] [address] Specialty Dietetic Tech Hematology/Oncology 02/04/20 Chelsy Cedeno MD, [address] [facility] [place] [address] Physician Radiation Oncology 02/08/20 Tristen Raphael MD [address] [place] [address] Hematology/Oncology 07/17/21 Deputy Coroner Investigator Relationship Specialty Start [place] [address] [place] [address] Specialty Dietetic Tech Hematology/Oncology 02/04/20 Chelsy Cedeno MD, [address] [place] [address] Physician Radiation Oncology 02/08/20 Tristen Raphael MD [address] [place] [address] Hematology/Oncology 07/17/21 Deputy Coroner Investigator Relationship Specialty Start [place] [address] [place] [address] Specialty Dietetic Tech Hematology/Oncology 02/04/20 Chelsy Cedeno MD, [address] [place] [address] Physician Radiation Oncology 02/08/20 Tristne Raphael MD [facility] [place] [address] Hematology/Oncology 07/17/21 Deputy Coroner Investigator Relationship Specialty Start Date End Date Jasmina Arita, KAI [address] [place] [address] Specialty Dietetic Tech Hematology/Oncology 02/04/20 Chelsy Cedeno MD, [address] [place] [address] Physician Radiation Oncology 02/08/20 Tristen Raphael MD [address] [place] [address] Hematology/Oncology 07/17/21 Deputy Coroner Investigator Relationship Specialty Start [place] [address] [place] [address] Specialty Dietetic Tech Hematology/Oncology 02/04/20 Chelsy Cedeno MD, [address] [place] [address] Physician Radiation Oncology 02/08/20 [place] [address] [place] [address] Hematology/Oncology 07/17/21 Deputy Coroner Investigator Relationship Specialty Start [place] [address] [place] [address] Specialty Dietetic Tech Hematology/Oncology 02/04/20 Chelsy Cedeno MD, [address] [facility] [facility] [place] [address] Physician Radiation Oncology 02/08/20 Tristen Raphael MD [address] [place] [address] Hematology/Oncology 07/17/21 Deputy Coroner Investigator Relationship Specialty Start [place] [address] [place] [address] Specialty Dietetic Tech Hematology/Oncology 02/04/20 Chelsy Cedeno MD, [address] [facility] [facility] [place] [place] [address] Physician Radiation Oncology 02/08/20 Tristen Raphael MD [address] [place] [address] Hematology/Oncology 07/17/21 Deputy Coroner Investigator Relationship Specialty Start [place] [address] [place] [address] Specialty Dietetic Tech Hematology/Oncology 02/04/20 Chelsy Cedeno MD, [address] [facility] [place] [place] [address] Physician Radiation Oncology 02/08/20 Tristen Raphael MD [address] [place] [address] Hematology/Oncology 07/17/21 Deputy Coroner Investigator Relationship Specialty Start [place] [address] [place] [address] Specialty Dietetic Tech Hematology/Oncology 02/04/20 Chelsy Cedeno MD, [address] [place] [address] Physician Radiation Oncology 02/08/20 Tristen Raphael MD [address] [place] [address] Hematology/Oncology 07/17/21 Deputy Coroner Investigator Relationship Specialty Start [place] [address] [place] [address] Specialty Dietetic Tech Hematology/Oncology 02/04/20 Chelsy Cedeno MD, [address] [place] [address] Physician Radiation Oncology 02/08/20 Tristen Raphael MD [address] [place] [address] Hematology/Oncology 07/17/21 Deputy Coroner Investigator Relationship Specialty Start [place] [address] [place] [address] Specialty Dietetic Tech Hematology/Oncology 02/04/20 Chelsy Cedeno MD, [address] [place] [address] Physician Radiation Oncology 02/08/20 Tristen Raphael MD [address] [place] [address] Hematology/Oncology 07/17/21 Deputy Coroner Investigator Relationship Specialty [place] [address] [place] [address] Specialty Dietetic Tech Hematology/Oncology 02/04/20 Chelsy Cedeno MD, [address] [place] [address] Physician Radiation Oncology 02/08/20 Tristen Raphael MD [address] [place] [address] Hematology/Oncology 07/17/21 09/08/22 Agnieszka Mejia [address] [place] [address] Pain Management 09/09/22 Deputy Coroner Investigator Relationship Specialty Start [place] [address] [place] [address] Specialty Dietetic Tech Hematology/Oncology 02/04/20 Chelsy Cedeno MD, [address] [place], [place] [address] [phone] Physician Radiation Oncology 02/08/20 Tristen Raphael MD [address] [place] [address] Hematology/Oncology 07/17/21 09/08/22 Agnieszka Mejia [address] [place] [address] Pain Management 09/09/22 Deputy Coroner Investigator Relationship Specialty Start [place] [address] [place] [address] Specialty Dietetic Tech Hematology/Oncology 02/04/20 Chelsy Cedeno MD, [address] [place] [address] Physician Radiation Oncology 02/08/20 Agnieszka Mejia [address] [place] [address] Pain Management 09/09/22 Deputy Coroner Investigator Relationship Specialty Start [place] [address] [place] [address] Specialty Dietetic Tech Hematology/Oncology 02/04/20 Chelsy Cedeno MD, [address] [place] [address] Physician Radiation Oncology 02/08/20 Agnieszka Mejia [address] [place] [address] Pain Management 09/09/22 Deputy Coroner Investigator Relationship Specialty Start [place] [address] [place] [address] Specialty Dietetic Tech Hematology/Oncology 02/04/20 Chelsy Cedeno MD, [address] [place] [address] Physician Radiation Oncology 02/08/20 Tristen Raphael MD [address] [place], [place] [id number] Hematology/Oncology 07/17/21 09/08/22 Agnieszka Mejia [address] [place] [address] Pain Management 09/09/22 Deputy Coroner Investigator Relationship Specialty Start [place] [address] [place] [address] Specialty Dietetic Tech Hematology/Oncology 02/04/20 Chelsy eCdeno MD, [address] [place] [address] Physician Radiation Oncology 02/08/20 Agnieszka Mejia [address] [place] [address] Pain Management 09/09/22 Deputy Coroner Investigator Relationship Specialty Start [place] [address] [place] [address] Specialty Dietetic Tech Hematology/Oncology 02/04/20 Chelsy Cedeno MD, [address] [place] [address] Physician Radiation Oncology 02/08/20 Agnieszka Mejia [address] [place] [address] Pain Management 09/09/22 Deputy Coroner Investigator Relationship Specialty Start [place] [address] [place] [address] Specialty Dietetic Tech Hematology/Oncology 02/04/20 Chelsy Cedeno MD, [address] [place] [address] Physician Radiation Oncology 02/08/20 Agnieszka Mejia [address] [place] [address] Pain Management 09/09/22 Deputy Coroner Investigator Relationship Specialty Start [place] [address] [place] [address] Specialty Dietetic Tech Hematology/Oncology 02/04/20 Chelsy Cedeno MD, [address] [place] [address] Physician Radiation Oncology 02/08/20 Agnieszka Mejia [address] [place] [address] Pain Management 09/09/22 Deputy Coroner Investigator Relationship Specialty Start [place] [address] [place] [address] Specialty Dietetic Tech Hematology/Oncology 02/04/20 Chelsy Cedeno MD, [address] [place] [address] Physician Radiation Oncology 02/08/20 Tristen Raphael MD [address] [place], [place] [id number] Hematology/Oncology 07/17/21 09/08/22 Agnieszka Mejia [address] [place] [address] Pain Management 09/09/22 Deputy Coroner Investigator Relationship Specialty Start [place] [address] [place] [address] Specialty Dietetic Tech Hematology/Oncology 02/04/20 Chelsy Cedeno MD, [address] [place] [address] Physician Radiation Oncology 02/08/20 Agnieszka Mejia [address] [place] [address] Pain Management 09/09/22 Deputy Coroner Investigator Relationship Specialty Start [place] [address] [place] [address] Specialty Dietetic Tech Hematology/Oncology 02/04/20 Chelsy Cedeno MD, [address] [place] [address] Physician Radiation Oncology 02/08/20 Agnieszka Mejia [address] [place] [address] Pain Management 09/09/22 Deputy Coroner Investigator Relationship Specialty Start [place] [address] [place] [address] Specialty Dietetic Tech Hematology/Oncology 02/04/20 Chelsy Cedeno MD, [address] [place] [address] Physician Radiation Oncology 02/08/20 Agnieszka Mejia MD [address] [place] [address] Pain Management 09/09/22 Deputy Coroner Investigator Relationship Specialty Start [place] [address] [place] [address] Specialty Dietetic Tech Hematology/Oncology 02/04/20 Chelsy Cedeno MD, [address] [place] [address] Physician Radiation Oncology 02/08/20 Agnieszka Mejia MD [address] [place] [address] Pain Management 09/09/22 Deputy Coroner Investigator Relationship Specialty Start [place] [address] [place] [address] Specialty Dietetic Tech Hematology/Oncology 02/04/20 Chelsy Cedeno MD, [address] [place] [address] Physician Radiation Oncology 02/08/20 Agnieszka Mejia MD [address] [place] [address] Pain Management 09/09/22 Deputy Coroner Investigator Relationship Specialty Start Date End Date Jasmina Arita, KAI [address] [place] [address] Specialty Dietetic Tech Hematology/Oncology 02/04/20 Chelsy Cedeno MD, [address] [place] [address] Physician Radiation Oncology 02/08/20 Agnieszka Mejia MD [address] [place] [address] Pain Management 09/09/22 Deputy Coroner Investigator Relationship Specialty Start [place] [address] [place] [address] Specialty Dietetic Tech Hematology/Oncology 02/04/20 Chelsy Cedeno MD, [address] [place] [address] Physician Radiation Oncology 02/08/20 Agnieszka Mejia MD [address] [place] [address] Pain Management 09/09/22 Deputy Coroner Investigator Relationship Specialty Start [place] [address] [place] [address] Specialty Dietetic Tech Hematology/Oncology 02/04/20 Chelsy Cedeno MD, [address] [place] [address] Physician Radiation Oncology 02/08/20 Agnieszka Mejia MD [address] [place] [address] Pain Management 09/09/22 Deputy Coroner Investigator Relationship Specialty Start [place] [address] [place] [address] Specialty Dietetic Tech Hematology/Oncology 02/04/20 Chelsy Cedeno MD, [address] [place] [address] Physician Radiation Oncology 02/08/20 Agnieszka Mejia MD [address] [place] [address] Pain Management 09/09/22 Deputy Coroner Investigator Relationship Specialty Start [place] [address] [place] [address] Specialty Dietetic Tech Hematology/Oncology 02/04/20 Chelsy Cedeno MD, [address] [place] [address] Physician Radiation Oncology 02/08/20 Agnieszka Mejia MD [address] [place] [address] Pain Management 09/09/22 Deputy Coroner Investigator Relationship Specialty Start [place] [address] [place] [address] Specialty Dietetic Tech Hematology/Oncology 02/04/20 Chelsy Cedeno MD [address] [place] [address] Physician Radiation Oncology 02/08/20 Agnieszka Mejia MD [address] [place] [address] Pain Management 09/09/22 Deputy Coroner Investigator Relationship Specialty Start [place] [address] [place] [address] Specialty Dietetic Tech Hematology/Oncology 02/04/20 Chelsy Cedeno MD [address] [place] [address] Physician Radiation Oncology 02/08/20 Agnieszka Mejia MD [address] [place] [address] Pain Management 09/09/22 Deputy Coroner Investigator Relationship Specialty Start [place] [address] [place] [address] Specialty Dietetic Tech Hematology/Oncology 02/04/20 Chelsy Cedeno MD [address] [place] [address] Physician Radiation Oncology 02/08/20 Agnieszka Mejia MD [address] [place] [address] Pain Management 09/09/22 Deputy Coroner Investigator Relationship Specialty Start [place] [address] [place] [address] Specialty Dietetic Tech Hematology/Oncology 02/04/20 Chelsy Cedeno MD [address] [place] [address] Physician Radiation Oncology 02/08/20 Agnieszka Mejia MD [address] [place] [address] Pain Management 09/09/22 Deputy Coroner Investigator Relationship Specialty Start [place] [address] [place] [address] Specialty Dietetic Tech Hematology/Oncology 02/04/20 Chelsy Cedeno MD [address] [place] [address] Physician Radiation Oncology 02/08/20 Agnieszka Mejia MD [address] [place] [address] Pain Management 09/09/22 Deputy Coroner Investigator Relationship Specialty Start [place] [address] [place] [address] Specialty Dietetic Tech Hematology/Oncology 02/04/20 Chelsy Cedeno MD [address] [place] [address] Physician Radiation Oncology 02/08/20 Agnieszka Mejia MD [address] [place] [address] Pain Management 09/09/22 Deputy Coroner Investigator Relationship Specialty Start [place] [address] [place] [address] Specialty Dietetic Tech Hematology/Oncology 02/04/20 Chelsy Cedeno MD [address] [place] [address] Physician Radiation Oncology 02/08/20 Agnieszka Mejia MD [address] [place] [address] Pain Management 09/09/22 Deputy Coroner Investigator Relationship Specialty Start [place] [address] [place] [address] Specialty Dietetic Tech Hematology/Oncology 02/04/20 Chelsy Cedeno MD [address] [place] [address] Physician Radiation Oncology 02/08/20 Agnieszka Mejia MD [address] [place] [address] Pain Management 09/09/22 Deputy Coroner Investigator Relationship Specialty Start [place] [address] [place] [address] Specialty Dietetic Tech Hematology/Oncology 02/04/20 Chelsy Cedeno MD [address] [place] [address] Physician Radiation Oncology 02/08/20 Agnieszka Mejia MD [address] [place] [address] Pain Management 09/09/22 Deputy Coroner Investigator Relationship Specialty Start [place] [address] [place] [address] Specialty Dietetic Tech Hematology/Oncology 02/04/20 Chelsy Cedeno MD [address] [place] [address] Physician Radiation Oncology 02/08/20 Agnieszka Mejia MD [address] [place] [address] Pain Management 09/09/22 Deputy Coroner Investigator Relationship Specialty Start [place] [address] [place] [address] Specialty Dietetic Tech Hematology/Oncology 02/04/20 Chelsy Cedeno MD [address] [place] [address] Physician Radiation Oncology 02/08/20 Agnieszka Mejia MD [address] [place] [address] Pain Management 09/09/22 Deputy Coroner Investigator Relationship Specialty Start [place] [address] [place] [address] Specialty Dietetic Tech Hematology/Oncology 02/04/20 Chelsy Cedeno MD [address] [place] [address] Physician Radiation Oncology 02/08/20 Agnieszka Mejia MD [address] [place] [address] Pain Management 09/09/22 Deputy Coroner Investigator Relationship Specialty Start [place] [address] [place] [address] Specialty Dietetic Tech Hematology/Oncology 02/04/20 Chelsy Cedeno MD [address] [place] [address] Physician Radiation Oncology 02/08/20 Agnieszka Mejia MD [address] [place] [address] Pain Management 09/09/22 Tristen Raphael MD [address] [place] [address] Hematology/Oncology 02/25/24 Deputy Coroner Investigator Relationship Specialty Start [place] [address] [place] [address] Specialty Dietetic Tech Hematology/Oncology 02/04/20 Chelsy Cedeno MD [address] [place] [address] Physician Radiation Oncology 02/08/20 Agnieszka Mejia MD [address] [facility] 3 [place] [address] Pain Management 09/09/22 Tristen Raphael MD [address] [place] [address] Hematology/Oncology 02/25/24 Deputy Coroner Investigator Relationship Specialty Start [place] [address] [place] [address] Specialty Dietetic Tech Hematology/Oncology 02/04/20 Chelsy Cedeno MD [address] [place] [address] Physician Radiation Oncology 02/08/20 Agnieszka Mejia MD [address] [place] [address] Pain Management 09/09/22 Tristen Rapheal MD [address] [place] [address] Hematology/Oncology 02/25/24 Deputy Coroner Investigator Relationship Specialty Start [place] [address] [place] [address] Specialty Dietetic Tech Hematology/Oncology 02/04/20 Chelsy Cedeno MD [address] [place], [place] [address] Physician Radiation Oncology 02/08/20 Agnieszka Mejia MD [address] [place], [place] [address] Pain Management 09/09/22 Tristen Raphael MD [address] [place] [address] Hematology/Oncology 02/25/24 Deputy Coroner Investigator Relationship Specialty Start [place] [address] [place] [address] Specialty Dietetic Tech Hematology/Oncology 02/04/20 Chelsy Cedeno MD [address] [place] [address] Physician Radiation Oncology 02/08/20 Agnieszka Mejia MD [address] [place], [place] [address] Pain Management 09/09/22 Tristen Raphael MD [address] [place] [address] Hematology/Oncology 02/25/24 Deputy Coroner Investigator Relationship Specialty Start [place] [address] [place] [address] Specialty Dietetic Tech Hematology/Oncology 02/04/20 Chelsy Cedeno MD [address] [place], [place] [address] Physician Radiation Oncology 02/08/20 Tristen Raphael MD [address] [place] [address] Hematology/Oncology 07/17/21 09/08/22 Deputy Coroner Investigator Relationship Specialty Start [place] [address] [place] [address] Specialty Dietetic Tech Hematology/Oncology 02/04/20 Chelsy Cedeno MD [address] [place], [place] [address] Physician Radiation Oncology 02/08/20 Agnieszka Mejia MD [address] [address] Pain Management 09/09/22 Tristen Raphael MD [address] [place] [address] Hematology/Oncology 02/25/24 Deputy Coroner Investigator Relationship Specialty Start [place] [address] [place] [address] Specialty Dietetic Tech Hematology/Oncology 02/04/20 Chelsy Cedeno MD [address] [facility] [place] [place] [address] Physician Radiation Oncology 02/08/20 Agnieszka Mejia MD [address] [place] [address] Pain Management 09/09/22 Tristen Raphael MD [address] [place], [place] [address] Hematology/Oncology 02/25/24 Deputy Coroner Investigator Relationship Specialty Start [place] [address] [place] [address] Specialty Dietetic Tech Hematology/Oncology 02/04/20 Chelsy Cedeno MD [address] [place] [address] Physician Radiation Oncology 02/08/20 Deputy Coroner Investigator Relationship Specialty Start [place] [address] [place] [address] Specialty Dietetic Tech Hematology/Oncology 02/04/20 Chelsy Cedeno MD [address] [place] [address] Physician Radiation Oncology 02/08/20 Agnieszka Mejia MD [address] [place] [address] Pain Management 09/09/22 Tristen Raphael MD [address] [place] [address] Hematology/Oncology 02/25/24 Deputy Coroner Investigator Relationship Specialty Start [place] [address] [place] [address] Specialty Dietetic Tech Hematology/Oncology 02/04/20 Chelsy Cedeno MD [address] [place] [address] Physician Radiation Oncology 02/08/20 Agnieszka Mejia MD [address] [place] [address] Pain Management 09/09/22 Tristen Raphael MD [address] [place], [place] [address] Hematology/Oncology 02/25/24 Deputy Coroner Investigator Relationship Specialty Start [place] [address] [place] [address] Specialty Dietetic Tech Hematology/Oncology 02/04/20 Chelsy Cedeno MD [address] [place] [address] Physician Radiation Oncology 02/08/20 Agnieszka Mejia MD [address] [place] [address] Pain Management 09/09/22 Tristen Raphael MD [address] [place] [address] Hematology/Oncology 02/25/24 Deputy Coroner Investigator Relationship Specialty Start [place] [address] [place] [address] Specialty Dietetic Tech Hematology/Oncology 02/04/20 Chelsy Cedeno MD [address] [place] [address] Physician Radiation Oncology 02/08/20 Agnieszka Mejia MD [address] [place] [address] Pain Management 09/09/22 Tristen Raphael MD [address] [place] [address] Hematology/Oncology 02/25/24 Deputy Coroner Investigator Relationship Specialty Start [place] [address] [place] [address] Specialty Dietetic Tech Hematology/Oncology 02/04/20 Chelsy Cedeno MD [address] [place], [place] [address] Physician Radiation Oncology 02/08/20 Agnieszka Mejia MD [address] [place] [address] Pain Management 09/09/22 Tristen Raphael MD [address] [place] [address] Hematology/Oncology 02/25/24 Deputy Coroner Investigator Relationship Specialty Start [place] [address] [place] [address] Specialty Dietetic Tech Hematology/Oncology 02/04/20 Chelsy Cedeno MD [address] [place] [address] Physician Radiation Oncology 02/08/20 Agnieszka Mejia MD [address] [place] [address] Pain Management 09/09/22 Tristen Raphael MD [address] [place] [address] Hematology/Oncology 02/25/24 Deputy Coroner Investigator Relationship Specialty Start [place] [address] [place] [address] Specialty Dietetic Tech Hematology/Oncology 02/04/20 Chelsy Cedeno MD [address] [place], [place] [address] Physician Radiation Oncology 02/08/20 Agnieszka Mejia MD [address] [place] [address] Pain Management 09/09/22 Tristen Raphael MD [address] [place] [address] Hematology/Oncology 02/25/24 Deputy Coroner Investigator Relationship Specialty Start [place] [address] [place] [address] Specialty Dietetic Tech Hematology/Oncology 02/04/20 Cehlsy Cedeno MD [address] [place] [address] Physician Radiation Oncology 02/08/20 Agnieszka Mejia MD [address] [place] [address] Pain Management 09/09/22 Tristen Raphael MD [address] [place] [address] Hematology/Oncology 02/25/24 Deputy Coroner Investigator Relationship Specialty Start [place] [address] [place] [address] Specialty Dietetic Tech Hematology/Oncology 02/04/20 Chelsy Cedeno MD [address] [place] [address] Physician Radiation Oncology 02/08/20 Agnieszka Mejia MD [address] [place] [address] Pain Management 09/09/22 Tristen Raphael MD [address] [place] [address] Hematology/Oncology 02/25/24 Deputy Coroner Investigator Relationship Specialty Start [place] [address] [place] [address] Specialty Dietetic Tech Hematology/Oncology 02/04/20 Chelsy Cedeno MD [address] [place] [address] Physician Radiation Oncology 02/08/20 Agnieszka Mejia MD [address] [place] [address] Pain Management 09/09/22 Tristen Raphael MD [address] [place] [address] Hematology/Oncology 02/25/24 Deputy Coroner Investigator Relationship Specialty Start [place] [address] [place] [address] Specialty Dietetic Tech Hematology/Oncology 02/04/20 Chelsy Cedeno MD [address] [place], [place] [address] Physician Radiation Oncology 02/08/20 Agnieszka Mejia MD [address] [place] [address] Pain Management 09/09/22 Tristen Raphael MD [address] [place] [address] Hematology/Oncology 02/25/24 Deputy Coroner Investigator Relationship Specialty Start [place] [address] [place] [address] Specialty Dietetic Tech Hematology/Oncology 02/04/20 Chelsy Cedeno MD [address] [place], [place] [address] Physician Radiation Oncology 02/08/20 Agnieszka Mejia MD [address] [facility] 3 [place] [address] Pain Management 09/09/22 Tristen Raphael MD [address] [place] [address] Hematology/Oncology 02/25/24 Deputy Coroner Investigator Relationship Specialty Start [place] [address] [place] [address] Specialty Dietetic Tech Hematology/Oncology 02/04/20 Chelsy Cedeno MD [address] [place] [address] Physician Radiation Oncology 02/08/20 Agnieszka Mejia MD [address] [place] [address] Pain Management 09/09/22 Tristen Raphael MD [address] [place] [address] Hematology/Oncology 02/25/24 Deputy Coroner Investigator Relationship Specialty Start Date End Date Provider, Not In System, PCP - General 03/19/25 Deputy Coroner Investigator Relationship Specialty Start [place] [address] [place] [address] Specialty Dietetic Tech Hematology/Oncology 02/04/20 Chelsy Cedeno MD [address] [place] [address] Physician Radiation Oncology 02/08/20 Agnieszka Mejia MD [address] [place] [address] Pain Management 09/09/22 Tristen Raphael MD [address] [place] [address] Hematology/Oncology 02/25/24 Madina Bliss LSW Terminal Supervisor Oncology 03/23/25 Deputy Coroner Investigator Relationship Specialty Start [place] [address] [place] [address] Specialty Dietetic Tech Hematology/Oncology 02/04/20 Chelsy Cedeno MD [address] [place] [address] Physician Radiation Oncology 02/08/20 Agnieszka Mejia MD [address] [place] [address] Pain Management 09/09/22 Tristen Raphael MD [address] [place] [address] Hematology/Oncology 02/25/24 Madina Bliss [facility] Terminal Supervisor Oncology 03/23/25 Deputy Coroner Investigator Relationship Specialty Start [place] [address] [place] [address] Specialty Dietetic Tech Hematology/Oncology 02/04/20 Chelsy Cedeno MD [address] [place], [place] [address] Physician Radiation Oncology 02/08/20 Agnieszka Mejia MD [address] [address] Pain Management 09/09/22 Tristen Raphael MD [address] [place], [place] [address] Hematology/Oncology 02/25/24 Madina Bliss [facility] Terminal Supervisor Oncology 03/23/25 Deputy Coroner Investigator Relationship Specialty Start [place] [address] [place] [address] Specialty Dietetic Tech Hematology/Oncology 02/04/20 Chelsy Cedeno MD [address] [place] [address] Physician Radiation Oncology 02/08/20 Agnieszka Mejia MD [address] [facility] 3 [place], [place] [address] Pain Management 09/09/22 Tristen Raphael MD [address] [place] [address] Hematology/Oncology 02/25/24 Madina Bliss LSW Terminal Supervisor Oncology 03/23/25 Deputy Coroner Investigator Relationship Specialty Start [place] [address] [place], [place] 4235406 Specialty Dietetic Tech Hematology/Oncology 02/04/20 Chelsy Cedeno MD [address] [place], [place] [address] Physician Radiation Oncology 02/08/20 Agnieszka Mejia MD [address] [address] Pain Management 09/09/22 Tristen Raphael MD [address] [place] [address] Hematology/Oncology 02/25/24 Madina Bliss LSW Terminal Supervisor Oncology 03/23/25 Reason for Visit (unrecogniz ed section and content) Specialty Diagnoses / Procedures Referred By Contac t Referred To Contact Diagnoses 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) C90.00 (ICD-10-CM) - 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) Procedures BORTEZOMIB INJECTION BORTEZOMIB 1.3 D1,8,15-Q28D Tristen Raphael MD [address] [place] [address] [facility] [address] [place] [address] Referral ID Status Reason Start Date Expiration Date V isits Requested Visits Authorized [id number] Authorized 01/02/2021 01/25/2022 24 24 Reason Comments Refill Request Reason Comments Chemotherapy Treatment Specialty Diagnoses / Procedures Referred By [facility] Referred To Contact Diagnoses 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) C90.00 (ICD-10-CM) - 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) Procedures BORTEZOMIB INJECTION BORTEZOMIB 1.3 [id number],[id number] Tristen Raphael MD [address] [place] [address] [facility] [address] [place] [address] Reason Onset Date Comments Refill Request 11/14/2021 Referral ID Status Reason Start Date Expiration Date V isits Requested Visits Authorized [id number] Authorized 01/02/2021 01/25/2022 99 99 Reason Comments Symptoms Reason Onset Date Comments Refill Request 12/03/2021 Reason Onset Date Comments Refill Request 12/31/2021 Reason Comments F/U 3 Month Reason Onset Date Comments Refill Request 01/28/2022 Reason Comments URI Specialty Diagnoses / Procedures Referred By [facility] Referred To Contact Diagnoses 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) Procedures INJECTION, ZOLEDRONIC ACID, 1 MG Tristen Raphael MD [address] [place] [address] [facility] [place] [address] [address] [place] [address] Referral ID Status Reason Start Date Expiration Date V isits Requested Visits Authorized [id number] Authorized 11/08/2020 07/20/2022 99 99 Reason Comments Established Patient Reason Comments Care Coordination Reason Onset Date Comments Refill Request 02/25/2022 Reason Onset Date Comments Refill Request 03/22/2022 Reason Comments Edema Reason Comments Dietetic Tech - Other Compression soc ks Reason Onset Date Comments Refill Request 05/10/2022 Reason Comments Information bronchitis Reason Onset Date Comments Refill Request 06/17/2022 Reason Onset Date Comments Refill Request 07/11/2022 Reason Onset Date Comments Refill Request 07/17/2022 Reason Onset Date Comments Refill Request 07/24/2022 Reason Onset Date Comments Refill Request 08/08/2022 Reason Onset Date Comments Refill Request 08/09/2022 Reason Onset Date Comments Refill Request 08/12/2022 Reason Comments Dietetic Tech - Other Medication Reason Onset Date Comments Refill Request 08/20/2022 Medication Problem 08/20/2022 Reason Comments Dietetic Tech - Other Clarification o n order Reason Onset Date Comments Refill Request 09/05/2022 Reason Onset Date Comments Refill Request 07/19/2022 Reason Onset Date Comments Refill Request 10/07/2022 Reason Comments Follow Up Reason Comments Established Patient Reason Comments Radio Gen [id number] Specialty Diagnoses / Procedures Referred By Contac t Referred To Contact XR IMAGING Diagnoses Rib pain Procedures XR RIBS 2V AP/OBL RIGHT RADEX RIBS UNILATERAL 2 VIEWS Tristen Raphael MD [address] [place] [address] Xr Imaging Referral ID Status Reason Start Date Expiration Date V isits Requested Visits Authorized [id number] Closed Auto-Generate d Referral 10/30/2022 11/29/2023 1 1 Reason Onset Date Comments Refill Request 11/04/2022 Reason Comments Results - Ct Reason Onset Date Comments Refill Request 01/02/2023 Reason Comments Follow Up 4 month follow up fo r numbness and tingling Reason Onset Date Comments Refill Request 03/28/2023 Reason Onset Date Comments Refill Request 04/24/2023 Reason Onset Date Comments Refill Request 05/22/[address] Specialty Diagnoses / Procedures Referred By Contac t Referred To Contact CT IMAGING Diagnoses Lung nodules Procedures CT CHEST WO IVCON DIAGNOSTIC COMPUTED TOMOGRAPHY THORAX W/O CNTRST Tristen Raphael MD [address] [place] [address] [facility] [place] [address] Referral ID Status Reason Start Date Expiration Date V isits Requested Visits Authorized [id number] Closed Auto-Generate d Referral 10/31/2022 11/30/2023 1 1 Specialty Diagnoses / Procedures Referred By Contac t Referred To Contact CT IMAGING Diagnoses Pain of right hip Procedures CT HIP WO IVCON RIGHT CT LOWER EXTREMITY W/O CONTRAST MATERIAL Tristen Raphael MD [address] [place] [id number] [facility] [place] [address] Referral ID Status Reason Start Date Expiration Date V isits Requested Visits Authorized [id number] Closed Auto-Generate d Referral 04/23/2023 05/22/2024 1 1 Referral ID Status Reason Start Date Expiration Date V isits Requested Visits Authorized [id number] Closed Auto-Generate d Referral 05/14/2023 06/05/2024 1 1 Reason Onset Date Comments Refill Request 06/19/2023 Reason Onset Date Comments Refill Request 09/09/2023 Reason Onset Date Comments Refill Request 10/06/2023 Reason Comments Follow Up Follow up recent tra lety, fall x3 weeks. Reason Onset Date Comments Refill Request 10/31/2023 Reason Onset Date Comments Refill Request 11/28/2023 Reason Comments Pain Reason Comments Knee Pain Reason Onset Date Comments Refill Request 12/25/2023 Reason Onset Date Comments Refill Request 2024 Reason Onset Date Comments Refill Request 01/27/2024 Reason Onset Date Comments Refill Request 01/27/2024 Reason Onset Date Comments Refill Request 02/18/2024 Reason Comments Consult Specialty Diagnoses / Procedures Referred By Contac t Referred To Contact Nephrology Diagnoses Stage 3b chronic kidney disease (HCC) Procedures CONSULT TO KIDNEY MEDICINE OFFICE/OUTPATIENT [facility] 60 MINUTES Tristen Raphael MD [address] [place] [address] Referral ID Status Reason Start Date Expiration Date V isits Requested Visits Authorized [id number] Closed PCP Requested Referral 11/17/2023 11/16/2024 1 1 Reason Onset Date Comments Refill Request 03/15/2024 Reason Onset Date Comments Refill Request 04/15/[address] Specialty Diagnoses / Procedures Referred By Contac t Referred To Contact CT IMAGING Diagnoses Lung nodules Procedures CT CHEST WO IVCON DIAGNOSTIC COMPUTED TOMOGRAPHY THORAX W/O CNTRST Tristen Raphael MD [address] [place] [address] [place] [address] Referral ID Status Reason Start Date Expiration Date V isits Requested Visits Authorized [id number] Closed Auto-Generate d Referral 04/20/2024 03/26/2025 1 1 Reason Onset Date Comments Refill Request 07/07/2024 Reason Comments Dietetic Tech - Other Reason Comments Established Patient Multiple Myeloma Reason Comments Dietetic Tech - Other Pomolyst Reason Onset Date Comments Refill Request 08/16/2024 Reason Comments Chronic Kidney Disease Reason Onset Date Comments Refill Request 09/29/2024 Reason Comments Established Patient Neuropathy, Numbness Reason Comments Results Reason Onset Date Comments Refill Request 08/05/2024 Reason Onset Date Comments Refill Request 03/15/2025 Reason Comments Dysuria C/O Burning, Frequen cy and Urgency With Urination, incontinence x 1 week Other Requesting short scr ipt for lyrica, xarelto, levothyroxine, losartan Daughter wants to know If can not fill lyrica can it be cut in half Reason Comments [id number] initial consultation Reason Comments Initial Consult Reason Onset Date Comments Refill Request 03/23/2025 Reason Comments Care Coordination f/u on Olanzapine Reason Comments Patient Update ER Visit FOR RECORDS PERTAINING TO PATIENTS WHO ARE OR HAVE BEEN ENROLLED IN A CHEMICAL DEPENDENCY/SUBSTANCEABUSE PROGRAM, SOME INFORMATION MAY BE OMITTED. This clinical summary was aggregated from multiple sources. Caution should be exercised in using it in the provision of clinical care. This summary normalizes information from multiple sources, and as a consequence, information in this document may materially change the coding, format and clinical context of patient data. In addition, data may be omitted in some cases. CLINICAL DECISIONS SHOULD BE BASED ON THE PRIMARY CLINICAL RECORDS. [employer] provides no warranty or guarantee of the accuracy or completeness of information in this document.
== END ==
DX: R07.0 Pain in throat (principal); R50.9 Fever, unspecified
CPT/HCPCS: 87651